=== PATIENT | male | born 1950 | race Caucasian/White ===

== ENCOUNTER → 2020-10-11 10:39 | Outpatient (BNVA) | payer MEDICARE, SELFPAY | PROVIDERS: PCP Internal Medicine; Referring Provider Internal Medicine; Visit Provider Physician Assistant | DX: K52.9 Noninfective gastroenteritis and colitis, unspecified (principal); Z79.899 Other long term (current) drug therapy; Z79.84 Long term (current) use of oral hypoglycemic drugs | CPT/HCPCS: Q3014 ==

== ENCOUNTER 2020-10-23 08:40 | Outpatient (REF) | payer MEDICARE, SELFPAY ==
[2020-10-23 09:43] LABS: MANUAL DIFF FLAG NO
[2020-10-23 09:55] LABS: Basophils Absolute Auto 0.1 X10*3/uL (0.0-0.2); Basophils Percent Auto 0.7 % (0-2); Eosinophils Absolute Auto 0.2 X10*3/uL (0.0-0.4); Eosinophils Percent Auto 2.7 % (0-4); Hematocrit 42.2 % (42-52); Hemoglobin 14.1 g/dl (14.0-18.0); Imm Gran Abs Auto 0.03 X10*3/uL (0.00-0.03); Imm Gran Pct Auto 0.4 % (0.0-0.4); Lymphocytes Absolute Auto 1.5 X10*3/uL (1.2-4.9); Lymphocytes Percent Auto 20.5 % (20-40); Mean Corpuscular HGB Conc 33.4 g/dl (31.0-36.0); Mean Corpuscular Hemoglobin 30.3 pg (27.0-33.0); Mean Corpuscular Volume 90.8 fL (80-98); Mean Platelet Volume 11.5 fL (9.4-12.4); Monocytes Absolute Auto 0.6 X10*3/uL (0.1-1.2); Monocytes Percent Auto 7.7 % (2-11); Platelet Count 197 X10*3/uL (160-400); Red Blood Count 4.65 X10*6/uL (4.60-5.80); Red Cell Distribution Width 14.6 % (11.0-16.0); White Blood Count 7.4 X10*3/uL (4.8-10.8)
[2020-10-23 10:23] LABS: Alanine Aminotransferase 16 U/L (0-40); Albumin Level 3.8 g/dL (3.5-5.0); Alkaline Phosphatase 47 U/L (39-117); Anion Gap 16 (12-20); Aspartate Amino Transferase 19 U/L (5-37); Bilirubin Total 0.9 mg/dL (0.0-1.0); Blood Urea Nitrogen 12 mg/dL (9-16); Calcium 8.9 mg/dL (8.4-10.2); Carbon Dioxide 22 mmol/L (22-29); Chloride 104 mmol/L (96-108); Estimated Glomerular Filt Rate > 60; Glucose Random 169 mg/dL (60-115); Potassium 3.6 mmol/l (3.3-5.1); Sodium 138 mmol/L (135-145); Total Protein 6.6 g/dL (6.5-8.0)
[2020-10-23 10:31] LABS: Estimated Average Glucose 189 mg/dL; Hemoglobin A1c % 8.2 %
[2020-10-23 10:45] LABS: Thyroid Stimulating Hormone 2.07 uIU/mL (0.32-4.0)
[2020-10-23 11:32] LABS: Erythrocyte Sedimentation Rate 15 MM/HR (0-15)
[2020-10-23 13:35] LABS: Leukocytes Stool Qualitative NEGATIVE (NEGATIVE)
[2020-10-25 15:02] LABS: Transglutaminase IgA 1 U/mL
[2020-10-26 13:12] LABS: Endomysial IgA Antibody Negative (Negative)
== END 2020-10-23 08:41 | disposition home or self-care (01) ==
LOC: HO.LAB 08:40
PROVIDERS: PCP Internal Medicine; Visit Provider Physician Assistant
DX: K52.9 Noninfective gastroenteritis and colitis, unspecified (principal); R10.11 Right upper quadrant pain; K59.09 Other constipation
CPT/HCPCS: 36415; 80053; 83036; 83516; 84443; 85025; 85652; 86255; 86256; 87045; 87046; 87329; 89055

== ENCOUNTER → 2020-11-22 09:51 | Outpatient (BNVA) | payer MEDICARE, SELFPAY | PROVIDERS: PCP Internal Medicine; Visit Provider Physician Assistant | DX: K58.9 Irritable bowel syndrome, unspecified (principal) | CPT/HCPCS: Q3014 ==

== ENCOUNTER 2021-01-16 09:05 | Outpatient (REF) | payer MEDICARE, SELFPAY ==
[2021-01-16 11:13] LABS: MANUAL DIFF FLAG NO
[2021-01-16 11:39] LABS: Basophils Absolute Auto 0.1 X10*3/uL (0.0-0.2); Basophils Percent Auto 0.8 % (0-2); Eosinophils Absolute Auto 0.2 X10*3/uL (0.0-0.4); Eosinophils Percent Auto 2.6 % (0-4); Hematocrit 44.6 % (42-52); Hemoglobin 14.6 g/dl (14.0-18.0); Imm Gran Abs Auto 0.03 X10*3/uL (0.00-0.03); Imm Gran Pct Auto 0.4 % (0.0-0.4); Lymphocytes Absolute Auto 1.6 X10*3/uL (1.2-4.9); Lymphocytes Percent Auto 19.4 % (20-40); Mean Corpuscular HGB Conc 32.7 g/dl (31.0-36.0); Mean Corpuscular Hemoglobin 29.1 pg (27.0-33.0); Mean Platelet Volume 11.1 fL (9.4-12.4); Monocytes Absolute Auto 0.6 X10*3/uL (0.1-1.2); Monocytes Percent Auto 7.6 % (2-11); Neutrophils Absolute Auto 5.9 X10*3/uL (2.0-8.3); Neutrophils Percent Auto 69.2 % (45-73); Platelet Count 197 X10*3/uL (160-400); Red Blood Count 5.01 X10*6/uL (4.60-5.80); Red Cell Distribution Width 14.9 % (11.0-16.0); White Blood Count 8.5 X10*3/uL (4.8-10.8)
[2021-01-16 11:47] LABS: Estimated Average Glucose 189 mg/dL; Hemoglobin A1c % 8.2 %
[2021-01-16 11:55] LABS: Alanine Aminotransferase 12 U/L (0-40); Albumin Level 4.1 g/dL (3.5-5.0); Alkaline Phosphatase 52 U/L (39-117); Anion Gap 14 (12-20); Aspartate Amino Transferase 16 U/L (5-37); Blood Urea Nitrogen 11 mg/dL (9-16); Calcium 8.8 mg/dL (8.4-10.2); Carbon Dioxide 26 mmol/L (22-29); Chloride 102 mmol/L (96-108); Cholesterol 152 mg/dL; Estimated Glomerular Filt Rate > 60; Glucose Fasting 124 mg/dL (60-99); HDL Cholesterol 38 mg/dL; LDL Cholesterol Calculated 93 mg/dl; Potassium 3.6 mmol/L (3.3-5.1); Sodium 138 mmol/L (135-145); Total Protein 6.9 g/dL (6.5-8.0); Triglycerides 106 mg/dL
[2021-01-16 12:12] LABS: Prostate Specific Antigen Scr 0.55 ng/mL (<0.05-4.0)
[2021-01-16 12:18] LABS: Vitamin D 25-OH Total 33.3 ng/mL (>30)
[2021-01-16 12:34] LABS: Folate 5.5 ng/mL (> or = 4.0); Vitamin B12 542 pg/mL (200-900)
[2021-01-16 12:36] LABS: Glucose Urine UA NEG (NEG); Leukocyte Esterase Urine NEG (NEG); Nitrite Urine NEG (NEG); Specific Gravity - Urine >= 1.030 (1.005-1.025); Urine Blood NEG (NEG); Urine Ketones NEG (NEG); Urine Protein TRACE MG/DL (NEG-TRACE)
[2021-01-16 12:40] LABS: Appearance Urine CLEAR; Color Urine YELLOW
[2021-01-16 13:04] LABS: Creatinine Urine 160.66 mg/dL; Microalbum/Creatinine Ratio Ur 57.8 ug/mg cr
== END 2021-01-16 09:06 | disposition home or self-care (01) ==
LOC: HO.HMGCLDS 09:05
PROVIDERS: Nurse Practitioner Family; PCP Internal Medicine; Visit Provider Internal Medicine
DX: E11.9 Type 2 diabetes mellitus without complications (principal); I10 Essential (primary) hypertension; E53.8 Deficiency of other specified B group vitamins; G62.9 Polyneuropathy, unspecified; E78.00 Pure hypercholesterolemia, unspecified; E66.9 Obesity, unspecified; E55.9 Vitamin D deficiency, unspecified; F17.200 Nicotine dependence, unspecified, uncomplicated; Z12.5 Encounter for screening for malignant neoplasm of prostate
CPT/HCPCS: 36415; 80053; 80061; 81003; 82043; 82306; 82607; 82746; 83036; 84153; 84443; 85025

== ENCOUNTER → 2021-04-05 13:52 | Outpatient (BNVA) | payer MEDICARE, SELFPAY | PROVIDERS: PCP Internal Medicine; Visit Provider Nurse Practitioner Gerontology | DX: E11.42 Type 2 diabetes mellitus with diabetic polyneuropathy (principal); I10 Essential (primary) hypertension; G62.9 Polyneuropathy, unspecified; E78.00 Pure hypercholesterolemia, unspecified; E66.09 Other obesity due to excess calories; Z79.4 Long term (current) use of insulin | CPT/HCPCS: 82947; 99212 ==

== ENCOUNTER 2021-04-20 10:44 | Outpatient (REF) | payer MEDICARE, SELFPAY ==
[2021-04-20 11:30] LABS: MANUAL DIFF FLAG NO
[2021-04-20 11:40] LABS: Basophils Percent Auto 0.6 % (0-2); Eosinophils Absolute Auto 0.2 X10*3/uL (0.0-0.4); Eosinophils Percent Auto 2.7 % (0-4); Hematocrit 42.2 % (42-52); Imm Gran Abs Auto 0.02 X10*3/uL (0.00-0.03); Imm Gran Pct Auto 0.3 % (0.0-0.4); Lymphocytes Absolute Auto 1.3 X10*3/uL (1.2-4.9); Lymphocytes Percent Auto 19.6 % (20-40); Mean Corpuscular HGB Conc 33.2 g/dl (31.0-36.0); Mean Corpuscular Hemoglobin 29.3 pg (27.0-33.0); Mean Corpuscular Volume 88.3 fL (80-98); Mean Platelet Volume 10.8 fL (9.4-12.4); Monocytes Absolute Auto 0.5 X10*3/uL (0.1-1.2); Monocytes Percent Auto 7.2 % (2-11); Neutrophils Absolute Auto 4.6 X10*3/uL (2.0-8.3); Neutrophils Percent Auto 69.6 % (45-73); Platelet Count 163 X10*3/uL (160-400); Red Blood Count 4.78 X10*6/uL (4.60-5.80); Red Cell Distribution Width 15.3 % (11.0-16.0); White Blood Count 6.7 X10*3/uL (4.8-10.8)
[2021-04-20 11:48] LABS: Glucose Urine UA NEG (NEG); Leukocyte Esterase Urine NEG (NEG); Nitrite Urine NEG (NEG); Specific Gravity - Urine >= 1.030 (1.005-1.025); Urine Blood NEG (NEG); Urine Ketones NEG (NEG); Urine Protein 1+ MG/DL (NEG-TRACE)
[2021-04-20 11:50] LABS: Estimated Average Glucose 206 mg/dL; Hemoglobin A1c % 8.8 %
[2021-04-20 11:56] LABS: Alanine Aminotransferase 11 U/L (0-40); Albumin Level 4.1 g/dL (3.5-5.0); Alkaline Phosphatase 47 U/L (39-117); Anion Gap 13 (12-20); Aspartate Amino Transferase 19 U/L (5-37); Bilirubin Total 1.1 mg/dL (0.0-1.0); Blood Urea Nitrogen 16 mg/dL (9-16); Calcium 9.5 mg/dL (8.4-10.2); Carbon Dioxide 22 mmol/L (22-29); Chloride 105 mmol/L (96-108); Cholesterol 159 mg/dL; Estimated Glomerular Filt Rate > 60; Glucose Fasting 104 mg/dL (60-99); HDL Cholesterol 39 mg/dL; LDL Cholesterol Calculated 99 mg/dl; Potassium 3.8 mmol/L (3.3-5.1); Sodium 136 mmol/L (135-145); Total Protein 6.8 g/dL (6.5-8.0); Triglycerides 107 mg/dL
[2021-04-20 11:58] LABS: Appearance Urine CLEAR; Color Urine YELLOW
[2021-04-20 12:07] LABS: Creatinine Urine 193.85 mg/dL; Microalbum/Creatinine Ratio Ur 73.7 ug/mg cr
[2021-04-20 12:21] LABS: TSH reflex Free T4 1.03 uIU/mL (0.32-4.0); Vitamin D 25-OH Total 31.8 ng/mL (>30)
[2021-04-20 12:42] LABS: Calcium Oxalate Crystals Urine 1+ /LPF; Mucus Urine 1+ /LPF; RBC Urine 0 /HPF (0); WBC Urine 0 /HPF (0-4)
[2021-04-20 13:02] LABS: Folate 7.5 ng/mL (> or = 4.0); Vitamin B12 503 pg/mL (200-900)
== END 2021-04-20 10:45 | disposition home or self-care (01) ==
LOC: HO.LAB 10:44
PROVIDERS: PCP Internal Medicine; Visit Provider Internal Medicine
DX: E78.00 Pure hypercholesterolemia, unspecified (principal); E11.42 Type 2 diabetes mellitus with diabetic polyneuropathy; I10 Essential (primary) hypertension; E55.9 Vitamin D deficiency, unspecified; E53.8 Deficiency of other specified B group vitamins; G62.9 Polyneuropathy, unspecified; F17.200 Nicotine dependence, unspecified, uncomplicated; K52.9 Noninfective gastroenteritis and colitis, unspecified; R51.9 Headache, unspecified; E66.9 Obesity, unspecified; Z79.4 Long term (current) use of insulin
CPT/HCPCS: 36415; 80053; 80061; 81001; 82043; 82306; 82607; 82746; 83036; 84443; 85025

== ENCOUNTER → 2021-05-22 12:44 | Outpatient (BNVA) | payer MEDICARE, SELFPAY | PROVIDERS: PCP Internal Medicine; Visit Provider Nurse Practitioner Gerontology | DX: E11.42 Type 2 diabetes mellitus with diabetic polyneuropathy (principal); E78.00 Pure hypercholesterolemia, unspecified; E66.09 Other obesity due to excess calories; I10 Essential (primary) hypertension; G62.9 Polyneuropathy, unspecified; Z79.4 Long term (current) use of insulin | CPT/HCPCS: 82947; 99212 ==

== ENCOUNTER 2021-08-03 15:02 | Outpatient (REF) | payer MEDICARE, SELFPAY ==
[2021-08-03 16:00] LABS: MANUAL DIFF FLAG NO
[2021-08-03 16:01] LABS: Appearance Urine CLEAR; Color Urine DK YELLOW; Glucose Urine UA 250 MG/DL (NEG); Leukocyte Esterase Urine NEG (NEG); Nitrite Urine NEG (NEG); Specific Gravity - Urine >= 1.030 (1.005-1.025); UACC Culture Trigger NO; Urine Blood NEG (NEG); Urine Ketones NEG (NEG); Urine Protein 1+ MG/DL (NEG-TRACE)
[2021-08-03 16:07] LABS: Basophils Percent Auto 0.6 % (0-2); Eosinophils Absolute Auto 0.1 X10*3/uL (0.0-0.4); Eosinophils Percent Auto 2.1 % (0-4); Hematocrit 41.2 % (42-52); Hemoglobin 14.1 g/dl (14.0-18.0); Imm Gran Abs Auto 0.03 X10*3/uL (0.00-0.03); Imm Gran Pct Auto 0.5 % (0.0-0.4); Lymphocytes Absolute Auto 1.1 X10*3/uL (1.2-4.9); Lymphocytes Percent Auto 17.2 % (20-40); Mean Corpuscular HGB Conc 34.2 g/dl (31.0-36.0); Mean Corpuscular Hemoglobin 29.9 pg (27.0-33.0); Mean Corpuscular Volume 87.3 fL (80-98); Mean Platelet Volume 11.1 fL (9.4-12.4); Monocytes Absolute Auto 0.4 X10*3/uL (0.1-1.2); Monocytes Percent Auto 6.2 % (2-11); Neutrophils Absolute Auto 4.9 X10*3/uL (2.0-8.3); Neutrophils Percent Auto 73.4 % (45-73); Platelet Count 145 X10*3/uL (160-400); Red Blood Count 4.72 X10*6/uL (4.60-5.80); Red Cell Distribution Width 14.8 % (11.0-16.0); White Blood Count 6.6 X10*3/uL (4.8-10.8)
[2021-08-03 16:11] LABS: Bacteria Urine TRACE /LPF; Mucus Urine 3+ /LPF; RBC Urine 0-2 /HPF (0); Squamous Epithelial Cell Urine TRACE /LPF
[2021-08-03 16:44] LABS: Creatinine Urine 205.98 mg/dL; Microalbum/Creatinine Ratio Ur 97.5 ug/mg cr
[2021-08-03 16:49] LABS: Alanine Aminotransferase 14 U/L (0-40); Albumin Level 3.9 g/dL (3.5-5.0); Alkaline Phosphatase 53 U/L (39-117); Anion Gap 11 (12-20); Aspartate Amino Transferase 15 U/L (5-37); Bilirubin Total 1.4 mg/dL (0.0-1.0); Blood Urea Nitrogen 12 mg/dL (9-16); Calcium 9.3 mg/dL (8.4-10.2); Carbon Dioxide 25 mmol/L (22-29); Chloride 102 mmol/L (96-108); Cholesterol 157 mg/dL; Estimated Glomerular Filt Rate > 60; Glucose Fasting 192 mg/dL (60-99); HDL Cholesterol 42 mg/dL; LDL Cholesterol Calculated 93 mg/dl; Sodium 134 mmol/L (135-145); TSH reflex Free T4 1.12 uIU/mL (0.32-4.0); Total Protein 6.5 g/dL (6.5-8.0); Triglycerides 112 mg/dL; Vitamin D 25-OH Total 28.5 ng/mL (>30)
[2021-08-03 17:09] LABS: Folate 4.5 ng/mL (> or = 4.0); Vitamin B12 550 pg/mL (200-900)
[2021-08-04 07:46] LABS: Estimated Average Glucose 223 mg/dL; Hemoglobin A1c % 9.4 %
== END 2021-08-03 15:03 | disposition home or self-care (01) ==
LOC: HO.LAB 15:02
PROVIDERS: PCP Internal Medicine; Visit Provider Internal Medicine
DX: E11.9 Type 2 diabetes mellitus without complications (principal); E78.00 Pure hypercholesterolemia, unspecified; I10 Essential (primary) hypertension; E55.9 Vitamin D deficiency, unspecified; E53.8 Deficiency of other specified B group vitamins
CPT/HCPCS: 36415; 80053; 80061; 81001; 81003; 82043; 82306; 82607; 82746; 83036; 84443; 85025

== ENCOUNTER 2021-11-03 14:16 | Outpatient (REF) | payer MEDICARE, SELFPAY ==
[2021-11-03 15:17] LABS: MANUAL DIFF FLAG NO
[2021-11-03 15:39] LABS: Basophils Percent Auto 0.6 % (0-2); Eosinophils Absolute Auto 0.1 X10*3/uL (0.0-0.4); Eosinophils Percent Auto 2.1 % (0-4); Hematocrit 41.4 % (42.0-52.0); Imm Gran Abs Auto 0.02 X10*3/uL (0.00-0.03); Imm Gran Pct Auto 0.3 % (0.0-0.4); Lymphocytes Absolute Auto 1.5 X10*3/uL (1.2-4.9); Lymphocytes Percent Auto 22.9 % (20-40); Mean Corpuscular HGB Conc 33.8 g/dl (31.0-36.0); Mean Corpuscular Hemoglobin 30.6 pg (27.0-33.0); Mean Corpuscular Volume 90.6 fL (80.0-98.0); Mean Platelet Volume 11.1 fL (9.4-12.4); Monocytes Absolute Auto 0.5 X10*3/uL (0.1-1.2); Monocytes Percent Auto 7.8 % (2-11); Neutrophils Absolute Auto 4.3 x10*3/uL (2.0-8.3); Neutrophils Percent Auto 66.3 % (45-73); Platelet Count 143 X10*3/uL (160-400); Red Blood Count 4.57 X10*6/uL (4.60-5.80); Red Cell Distribution Width 14.9 % (11.0-16.0); White Blood Count 6.5 X10*3/uL (4.8-10.8)
[2021-11-03 15:40] LABS: Appearance Urine CLEAR; Color Urine DK YELLOW; Glucose Urine UA 500 MG/DL (NEG); Leukocyte Esterase Urine NEG (NEG); Nitrite Urine NEG (NEG); Specific Gravity - Urine >= 1.030 (1.005-1.025); UACC Culture Trigger NO; Urine Blood NEG (NEG); Urine Ketones NEG (NEG); Urine Protein 1+ MG/DL (NEG-TRACE)
[2021-11-03 15:52] LABS: WBC Urine 0-2 /HPF (0-4)
[2021-11-03 15:53] LABS: Calcium Oxalate Crystals Urine 2+ /LPF; Mucus Urine 2+ /LPF; RBC Urine 0 /HPF (0); Squamous Epithelial Cell Urine TRACE /LPF
[2021-11-03 15:57] LABS: Creatinine Urine 273.22 mg/dL; Microalbum/Creatinine Ratio Ur 67.7 ug/mg cr
[2021-11-03 15:57] LABS: Alanine Aminotransferase 8 U/L (0-40); Albumin Level 3.9 g/dL (3.5-5.0); Alkaline Phosphatase 55 U/L (39-117); Anion Gap 13 (12-20); Aspartate Amino Transferase 11 U/L (5-37); Bilirubin Total 1.1 mg/dL (0.0-1.0); Blood Urea Nitrogen 14 mg/dL (9-16); Calcium 9.1 mg/dL (8.4-10.2); Carbon Dioxide 23 mmol/L (22-29); Chloride 106 mmol/L (96-108); Cholesterol 148 mg/dL; Estimated Glomerular Filt Rate > 60; Glucose Fasting 163 mg/dL (60-99); HDL Cholesterol 41 mg/dL; LDL Cholesterol Calculated 87 mg/dl; Potassium 3.8 mmol/L (3.3-5.1); Sodium 138 mmol/L (135-145); Total Protein 6.7 g/dL (6.5-8.0); Triglycerides 104 mg/dL
[2021-11-03 16:00] LABS: Estimated Average Glucose 206 mg/dL; Hemoglobin A1c % 8.8 %
[2021-11-03 16:18] LABS: TSH reflex Free T4 1.06 uIU/mL (0.32-4.0); Vitamin D 25-OH Total 29.5 ng/mL (>30)
[2021-11-05 03:46] LABS: Folate 4.1 ng/mL (> or = 4.0); Vitamin B12 527 pg/mL (200-900)
== END 2021-11-03 14:17 | disposition home or self-care (01) ==
LOC: HO.HMGCLDS 14:16
PROVIDERS: Visit Provider Internal Medicine
DX: E78.00 Pure hypercholesterolemia, unspecified (principal); I10 Essential (primary) hypertension; E55.9 Vitamin D deficiency, unspecified; E53.8 Deficiency of other specified B group vitamins; E11.9 Type 2 diabetes mellitus without complications
CPT/HCPCS: 36415; 80053; 80061; 81001; 82043; 82306; 82607; 82746; 83036; 84443; 85025

== ENCOUNTER 2021-11-23 13:32 | Outpatient (REF) | payer MEDICARE, SELFPAY ==
--- NOTE | ~2021-11-23 | US_ITS ---
EXAMINATION: US ABDOMEN COMPLETE CLINICAL INFORMATION: Unspecified abdominal pain. COMPARISON: None TECHNIQUE: Real-time imaging of the abdominal viscera. FINDINGS: PANCREAS: The visualized portion of the pancreas head and body are normal, portion of the pancreatic body and tail, not visualized are obscured by bowel gas. ABDOMINAL AORTA: The proximal, mid, and distal segments are normal in caliber. INFERIOR VENA CAVA: Visualized portions are normal. LIVER: The liver is normal in size. The liver contour is normal. Diffusely echogenic liver suggesting hepatic steatosis versus cirrhosis. No focal hepatic lesion. There is no intrahepatic biliary duct dilatation seen. GALLBLADDER: Surgically absent. COMMON BILE DUCT: Normal in caliber measuring 0.7 cm in diameter. RIGHT KIDNEY: Normal. No hydronephrosis. No renal calculi or focal parenchymal lesions. The kidney measures 12.4 cm in maximum dimension. LEFT KIDNEY: Normal. No hydronephrosis. No renal calculi or focal parenchymal lesions. The kidney measures 12.9 cm in maximum dimension. SPLEEN: Enlarged The spleen measures 13.5 cm in maximum dimension. FREE FLUID: None. US/US abdomen complete IMPRESSION: *Heterogeneously echogenic liver suggesting liver parenchymal disease probably hepatic steatosis and/or cirrhosis. *Spleen mildly enlarged 13.5 cm. *Gallbladder has been removed. No ultrasound explanation for patient's pain symptoms.
== END 2021-11-23 13:33 | disposition home or self-care (01) ==
LOC: HO.HMGCX 13:32
PROVIDERS: PCP Internal Medicine; Visit Provider Internal Medicine
DX: R10.9 Unspecified abdominal pain (principal)
CPT/HCPCS: 76700

== ENCOUNTER 2021-12-28 22:37 | Emergency (ER) | payer MEDICARE, SELFPAY ==
--- NOTE | ~2021-12-28 | XR_ITS ---
EXAMINATION: XR CHEST CLINICAL INFORMATION: Weakness after fall 2 days ago COMPARISON: 04/09/2010 TECHNIQUE: Frontal view of the chest was obtained. FINDINGS: Lung volumes are symmetric. Diffusely coarsened appearance of the interstitium is noted, similar to prior. No focal consolidation is seen. No evidence of pneumothorax or pleural effusion. The cardiomediastinal contour is unremarkable. Degenerative changes are noted in the spine. Lower cervical spine fusion hardware is noted. No displaced fracture is seen. XR/XR chest 1V IMPRESSION: Coarsened appearance of the interstitium appears similar to prior and may reflect chronic airways disease. No new acute findings identified.
--- NOTE | ~2021-12-28 | CT_ITS ---
EXAMINATION: CT HEAD WITHOUT CONTRAST CLINICAL INFORMATION: Headache, fall COMPARISON: None TECHNIQUE: Contiguous axial imaging was performed from the skull base to vertex without intravenous administration of contrast. This CT examination was performed using dose optimization techniques as appropriate, variously including the following: *Automated exposure control *Adjustment of mA and/or kV according to patient size (this includes techniques or standardized protocols for targeted exams where dose is matched to indication/reason for exam; i.e. extremities or head) *Use of iterative reconstruction technique DLP: 750 mGy-cm FINDINGS: There is no evidence of acute intracranial hemorrhage or territorial infarction. No abnormal mass effect or midline shift is seen. Blanc to white matter differentiation is well preserved. No extra-axial fluid collections are identified. The ventricles are normal in size. There is moderate periventricular white matter hypoattenuation consistent with chronic small vessel ischemic disease. The osseous structures and soft tissues are normal. The mastoid air cells and visualized portions of the paranasal sinuses are well aerated. CT/CT head/brain wo con IMPRESSION: No acute intracranial pathology.
--- NOTE | ~2021-12-28 | CT_ITS ---
EXAMINATION: CT ABDOMEN AND PELVIS WITHOUT CONTRAST CLINICAL INFORMATION: Abdominal pain, constipation COMPARISON: None TECHNIQUE: Multidetector volumetric imaging was performed from the superior aspect of the liver through the pubic symphysis. Sagittal and coronal reformatted images were obtained on the technologist's workstation. This CT examination was performed using dose optimization techniques as appropriate, variously including the following: *Automated exposure control *Adjustment of mA and/or kV according to patient size (this includes techniques or standardized protocols for targeted exams where dose is matched to indication/reason for exam; i.e. extremities or head) *Use of iterative reconstruction technique DLP: 1027 mGy-cm FINDINGS: LUNG BASES: There is mild patchy groundglass type opacity in the inferior right middle lobe. LIVER, GALLBLADDER, AND BILIARY TREE: The liver is normal in size, shape, and attenuation. No focal hepatic lesion or biliary ductal dilatation is present. Patient is status post cholecystectomy. PANCREAS: Unremarkable. SPLEEN: Unremarkable. ADRENAL GLANDS: Unremarkable. KIDNEYS AND URETERS: No hydronephrosis or obstructing calculus bilaterally. There is a 2 mm calculus in the posterior mid left kidney. Nonspecific bilateral perinephric stranding. BLADDER: Minimally distended with diffuse mural prominence and surrounding stranding. GASTROINTESTINAL TRACT: Assessment for wall thickening in some segments of the colon is limited due to luminal collapse, though no significant pericolonic stranding is seen to strongly suggest a colitis. Relatively mild amount of stool is present. No evidence of bowel obstruction. The appendix is unremarkable. No free fluid or free air is seen. ABDOMINAL WALL: Bilateral fat-containing inguinal hernias are noted. Small fat-containing umbilical hernia. LYMPH NODES: Normal. VASCULAR: There is atherosclerotic calcification along the aorta and iliac arteries. PELVIC VISCERA: Unremarkable. OSSEOUS STRUCTURES: Degenerative changes are noted in the spine. Interspinous process device is present at L3-L4. There is grade 1 anterolisthesis of L3 on L4 with degenerative disc disease and severe disc space narrowing. Vacuum disc phenomenon is also noted at L4-L5 and to a lesser degree at T11-T12. CT/CT abdomen pelvis wo con IMPRESSION: 1. Mild patchy groundglass pulmonary opacity in the inferior right middle lobe, suggesting mild infectious/inflammatory change. 2. Mural prominence of the urinary bladder with surrounding stranding. Correlation with urinalysis is advised, as this appearance can be seen with cystitis. 3. Tiny left renal calculus without hydronephrosis. 4. No acute bowel abnormality. Mild volume of stool. Fleischner guidelines were followed.
[2021-12-28 23:30] VITALS: BP 146/66; PULSE 100; RESP 20; TEMP 36.8; O2SAT 96; BMI 32.3
[2021-12-29] VITALS (9 sets, daily range): BP systolic 110–155; BP diastolic 48–70; PULSE 91–109; RESP 16–19; TEMP 36.6–37.4; O2SAT 94–100
--- NOTE | 2021-12-29 02:57 | ECG_ITS ---
Test Reason : FALL Blood Pressure : / mmHG Vent. Rate : 095 BPM Atrial Rate : 095 BPM P-R Int : 138 ms QRS Dur : 090 ms QT Int : 372 ms P-R-T Axes : 054 044 057 degrees QTc Int : 467 ms Sinus rhythm with frequent Premature ventricular complexes Nonspecific ST abnormality Abnormal ECG When compared with ECG of 17-MAY-2011 12:31, Premature ventricular complexes are now Present Referred By: Generic ED Physician Electronically Signed By:Clovis Hackett
--- NOTE | 2021-12-29 03:47 | ED.FALL ---
HPI - Fall General Chief Complaint: Fall Stated Complaint: fall x3 yesterday, blood in urine Time Seen by Provider: 12/29/21 02:00 Source: patient Mode of arrival: ambulatory Limitations: no limitations History of Present Illness complaint: fall Onset (ago): day(s) ( states he fells 3 times and one time hit his head) Fall from: standing Fall witnessed: no Place fall occurred: home Loss of consciousness: none Prolonged down time: no Symptoms prior to fall: none Context: other (unsure thinks his knees gave out then feels his abdomen was too big and it caused him to fall) Location of injury: head Severity: mild Quality: dull Associated symptoms (after fall): other (has had pain with urination as well, he also states he needs more help at home but cannot get it ) Related Data Home Medications Medication Instructions Recorded Confirmed cholecalciferol (vitamin D3) 25 25 mcg PO DAILY 11/22/20 11/06/21 mcg (1,000 unit) capsule mirtazapine 30 mg disintegrating 30 mg PO BEDTIME 11/22/20 11/06/21 tablet insulin aspar prt-insulin aspart 30 unit SUBCUT BID ml 04/05/21 11/06/21 100 unit/mL (70-30) subcutaneous soln (Novolog Mix 70-30 U-100 Insuln) melatonin 1 mg tablet 1 mg PO BEDTIME PRN 11/06/21 11/06/21 sertraline 100 mg tablet 150 mg PO DAILY tab 11/06/21 11/06/21 topiramate 25 mg tablet 25 mg PO BID 11/06/21 11/06/21 Previous Rx's Medication Instructions Recorded methylcellulose (laxative) 500 mg 500 mg PO BID #60 tab 10/11/20 tablet (Citrucel) meclizine 25 mg tablet 25 mg PO TID PRN 10 Days #30 tab 04/24/21 doxycycline monohydrate 100 mg 100 mg PO BID 10 Days #20 cap 08/07/21 capsule blood sugar diagnostic (FreeStyle 1 strip MISCELLANEOUS TID #300 cap 09/06/21 Lite Strips) glimepiride 4 mg tablet 4 mg PO QAM #30 tab 11/02/21 lancets 28 gauge (FreeStyle 1 gauge TOPICAL TID #300 cap 11/27/21 Lancets) gabapentin 300 mg capsule 300 mg PO TID #90 cap 11/30/21 lovastatin 40 mg tablet 40 mg PO DAILY #30 tab 11/30/21 metformin 1,000 mg tablet 1,000 mg PO BID #60 tab 11/30/21 metoprolol tartrate 25 mg tablet 25 mg PO BID #60 tab 11/30/21 Allergies Allergy/AdvReac Type Severity Reaction Status Date / Time No Known Allergies Allergy Verified 11/06/21 15:20 [No Known Allergies*] Review of Systems Review of Systems: Constitutional : No Weight loss, No Fever, No Chills, No Fatigue, No Malaise ENT/Mouth : No sore throat, No Rhinorrhea Eyes: No Eye Pain, No Swelling, No Redness Cardiovascular : No Chest Pain, No SOB, No Dyspnea on Exertion, No Orthopnea, No Edema, No Palpitations Respiratory : No Cough, No Sputum, No Wheezing Gastrointestinal : No Nausea, No Vomiting, No Diarrhea, No Constipation, pos abdominal Pain, No Hematochezia, No Melena Genitourinary : pos Dysuria, pos Urinary Frequency, No Hematuria, Musculoskeletal : No joint pain, No Myalgias, No Joint Swelling Skin : No Skin Lesions, No rash Neuro : No Weakness, No Numbness, No Dizziness, No Headache, pos falls Psych : No Anxiety/Panic, No Depression Heme/Lymph: No Bruising, No Bleeding,No Lymphadenopathy Endocrine : No Polyuria, No Polydipsia All other systems reviewed and are negative [facility] Past Medical History Attestation statement: The following information was validated with the patient. Medical History Benign essential hypertension Benign paroxysmal vertigo Chronic diarrhea Degenerative disc disease, cervical Depression Diabetes Diabetes mellitus HTN (hypertension) Insomnia Irritable bowel Keratotic lesion Lumbar degenerative disc disease Neuropathy Nonintractable headache Obesity (BMI 30-39.9) Obesity due to excess calories Postprandial diarrhea Posttraumatic stress disorder Pure hypercholesterolemia Smoker Type 2 diabetes mellitus with microalbuminuria Vitamin B12 deficiency Vitamin D deficiency Surgical History History of cervical spinal surgery History of laparoscopic cholecystectomy History of lumbar surgery History of surgery Family History Family History Father Diabetes CVD (cardiovascular disease) Mother Stroke Social History Social History Household Members: Children Household Members Other:: lives with his son Housing: Apartment Alcohol intake: former Patient Tobacco Use Status: Current everyday Tobacco user Tobacco use type: Cigar Cigarettes Per Day: 10 Second Hand Smoke Exposure: Yes Advance Directives: No Advance Directives Information Provided: Yes service: Yes Current occupational status: retired Physical Exam Vital Signs: Vital Signs: Last Vital Signs Temp 98.2 F 12/28/21 23:30 Pulse 99 12/29/21 04:30 Resp 18 12/29/21 04:30 BP 155/64 H 12/29/21 04:30 Pulse Ox 98 12/29/21 04:30 BMI result Body Mass Index 32.3 Appearance: Alert. Oriented X3. No acute distress. Eyes: Pupils equal, round and reactive to light. ENT: Pharynx normal. Atraumatic Neck: Normal inspection. Neck supple. CVS: Normal heart rate and rhythm. Pulses normal. Respiratory: No respiratory distress. Breath sounds normal. Abdomen: Soft and non-tender. Skin: Skin warm and dry. Normal skin color. Normal skin turgor. Extremities: No lower extremity edema. No calf ttp Shiny red legs, prior healing scrapes noted on anterior legs Neuro: Oriented X 3. No motor deficit. No sensory deficit. Course Course Course Narrative: + UA at this time infection suspected 510am cultures, lactic acid and ceftriaxone ordered. afebrile, no vomiting here, steady gait here - + UTI but no WBC count no fevers no abdominal pain at this time lytes being repleted given IV ceftriaxone - would refer to PT/CM patient agreeable and wants to go to rehab he is vaccinated for COVID started on ceftin 500mg BID Patient placed in physician observation at 617am. The indication for observation is that the patient needs more time to see PT and CM he reports increased falls at home and notes he needs more help at home, he has fallen in the past. At this time the patient is well developed well nourished, lungs clear, CV RRR, abd nontender, neuro is intact. MDM - Fall MDM Narrative Medical decision making narrative: 71 yo male with hx of DM, HTN, HLD, PTSD, arthritis comes in with 3 falls on he has no CP/SOB/dizziness but does not his stomach hurt and he has some dysuria. At this time he is alert and oriented. Notes he needs more help at home. He denies any trauma from the event but did hit his head on a counter. At this time labs, CT head for trauma, CT abdomen for reported pain/distention, UA, EKG. Dispo per results and findings. May need CM for more help at home. Lab Data Result diagrams: 12/29/21 04:36 12/29/21 04:36 Labs: Lab Results 12/29/21 12/29/21 12/29/21 Range/Units 04:36 04:36 04:36 WBC 9.0 (4.8-10.8) X10*3/uL RBC 4.31 L (4.60-5.80) X10*6/uL Hgb 13.1 L (14.0-18.0) g/dl Hct 38.5 L (42.0-52.0) % MCV 89.3 (80.0-98.0) fL MCH 30.4 (27.0-33.0) pg MCHC 34.0 (31.0-36.0) g/dl RDW 14.6 (11.0-16.0) % Plt Count 97 L D (160-400) X10*3/uL MPV 11.3 (9.4-12.4) fL Immature Gran % (Auto) 0.7 H (0.0-0.4) % Neut % (Auto) 75.0 H (45-73) % Lymph % (Auto) 15.0 L (20-40) % [place] % (Auto) 8.0 (2-11) % Eos % (Auto) 1.1 (0-4) % Baso % (Auto) 0.2 (0-2) % Lymph # (Auto) 1.4 (1.2-4.9) X10*3/uL [place] # (Auto) 0.7 (0.1-1.2) X10*3/uL Eos # (Auto) 0.1 (0.0-0.4) X10*3/uL Baso # (Auto) 0.0 (0.0-0.2) X10*3/uL Abs Immat Gran (auto) 0.06 H (0.00-0.03) X10*3/uL Absolute Neuts (auto) 6.8 (2.0-8.3) x10*3/uL Absolute Nucleated RBC 0.000 (0.0-0.012) X10*3/uL Nucleated RBC % (auto) 0.0 (0.0-0.2) /100WBC Sodium 134 L (135-145) mmol/L Potassium 3.2 L (3.3-5.1) mmol/L Chloride 98 (96-108) mmol/L Carbon Dioxide 26 (22-29) mmol/L Anion Gap 13 (12-20) BUN 15 (9-16) mg/dL Creatinine 0.82 (0.5-1.4) mg/dL Estim Creat Clear Calc 111.1 Estimated GFR > 60 Random Glucose 172 H (60-115) mg/dL Lactic Acid (0.5-2.0) mmol/L Calcium 8.6 (8.4-10.2) mg/dL Magnesium 1.4 L* (1.6-2.6) mg/dL Total Bilirubin 2.9 H (0.0-1.0) mg/dL AST 15 (5-37) U/L ALT 7 (0-40) U/L Alkaline Phosphatase 45 (39-117) U/L Troponin I High Sens 28.0 (<3.5-35.0) ng/L Total Protein 6.3 L (6.5-8.0) g/dL Albumin 3.4 L (3.5-5.0) g/dL Urine Color Urine Appearance Urine pH (5.0-8.0) Ur Specific [place] (1.005-1.025) Urine Protein (NEG-TRACE) MG/DL Urine Glucose (UA) (NEG) MG/DL Urine Ketones (NEG) MG/DL Urine Blood (NEG) Urine Nitrite (NEG) Ur Leukocyte Esterase (NEG) Urine RBC (0) /HPF Urine WBC (0-4) /HPF Ur Squamous Epith Cells /LPF Urine Bacteria /LPF Urine Mucus /LPF COVID-19 (LEATHA) (Negative) COVID-19 Clin Com 12/29/21 12/29/21 12/29/21 Range/Units 04:36 05:53 05:54 WBC (4.8-10.8) X10*3/uL RBC (4.60-5.80) X10*6/uL Hgb (14.0-18.0) g/dl Hct (42.0-52.0) % MCV (80.0-98.0) fL MCH (27.0-33.0) pg MCHC (31.0-36.0) g/dl RDW (11.0-16.0) % Plt Count (160-400) X10*3/uL MPV (9.4-12.4) fL Immature Gran % (Auto) (0.0-0.4) % Neut % (Auto) (45-73) % Lymph % (Auto) (20-40) % [place] % (Auto) (2-11) % Eos % (Auto) (0-4) % Baso % (Auto) (0-2) % Lymph # (Auto) (1.2-4.9) X10*3/uL [place] # (Auto) (0.1-1.2) X10*3/uL Eos # (Auto) (0.0-0.4) X10*3/uL Baso # (Auto) (0.0-0.2) X10*3/uL Abs Immat Gran (auto) (0.00-0.03) X10*3/uL Absolute Neuts (auto) (2.0-8.3) x10*3/uL Absolute Nucleated RBC (0.0-0.012) X10*3/uL Nucleated RBC % (auto) (0.0-0.2) /100WBC Sodium (135-145) mmol/L Potassium (3.3-5.1) mmol/L Chloride (96-108) mmol/L Carbon Dioxide (22-29) mmol/L Anion Gap (12-20) BUN (9-16) mg/dL Creatinine (0.5-1.4) mg/dL Estim Creat Clear Calc Estimated GFR Random Glucose (60-115) mg/dL Lactic Acid 1.2 (0.5-2.0) mmol/L Calcium (8.4-10.2) mg/dL Magnesium (1.6-2.6) mg/dL Total Bilirubin (0.0-1.0) mg/dL AST (5-37) U/L ALT (0-40) U/L Alkaline Phosphatase (39-117) U/L Troponin I High Sens (<3.5-35.0) ng/L Total Protein (6.5-8.0) g/dL Albumin (3.5-5.0) g/dL Urine Color BROWN A Urine Appearance CLOUDY Urine pH 6.0 (5.0-8.0) Ur Specific [place] >= 1.030 H (1.005-1.025) Urine Protein 2+ H (NEG-TRACE) MG/DL Urine Glucose (UA) 100 H (NEG) MG/DL Urine Ketones 40 (NEG) MG/DL Urine Blood 1+ H (NEG) Urine Nitrite POS H (NEG) Ur Leukocyte Esterase 1+ H (NEG) Urine RBC 5-9 H (0) /HPF Urine WBC 10-14 H (0-4) /HPF Ur Squamous Epith Cells TRACE /LPF Urine Bacteria 3+ /LPF Urine Mucus TRACE /LPF COVID-19 (LEATHA) Negative (Negative) COVID-19 Clin Com See Note ECG Data Attestation: I personally reviewed and interpreted this ECG as follows: ECG interpretation date: 12/29/21 ECG interpretation time: 04:59 Interpretation: Rate: 95 Rhythm: NSR with PVCs [place]: normal Normal P waves. Normal MEL. Normal QRS complex. ST T wave : no ANGELA nonspecific qTC: normal prior studies: no acute ischemia The study has been interpreted contemporaneously by me. . Discharge Plan Discharge Clinical Impression: Hypomagnesemia, Acute hypokalemia, Acute UTI Falls Qualifiers: Encounter type: initial encounter Qualified Code(s): W19.XXXA - Unspecified fall, initial encounter Patient Disposition: Still a Patient Prescriptions: No Action Citrucel 500 mg tablet 500 mg PO BID Qty: 60 5RF FreeStyle Lite Strips Strip 1 strip miscellaneous TID Qty: 300 0RF glimepiride 4 mg tablet 4 mg PO QAM Qty: 30 3RF lancets [FreeStyle Lancets] 28 gauge misc 1 gauge topical TID Qty: 300 0RF metformin 1,000 mg tablet 1,000 mg PO BID Qty: 60 3RF lovastatin 40 mg tablet 40 mg PO DAILY Qty: 30 3RF gabapentin 300 mg capsule 300 mg PO TID Qty: 90 3RF metoprolol tartrate 25 mg tablet 25 mg PO BID Qty: 60 3RF melatonin 1 mg tablet 1 mg PO BEDTIME PRN0RF topiramate 25 mg tablet 25 mg PO BID 0RF meclizine 25 mg tablet 25 mg PO TID PRN (Reason: dizziness) 10 Days Qty: 30 1RF doxycycline monohydrate 100 mg capsule 100 mg PO BID 10 Days Qty: 20 0RF insulin asp prt-insulin aspart [Novolog Mix 70-30 U-100 Insuln] 100 unit/mL (70-30) solution 30 unit subcut BID 0RF cholecalciferol (vitamin D3) 25 mcg (1,000 unit) capsule 25 mcg PO DAILY 0RF mirtazapine 30 mg tablet,disintegrating 30 mg PO BEDTIME 0RF sertraline 100 mg tablet 150 mg PO DAILY 0RF
[2021-12-29 04:46] LABS: MANUAL DIFF FLAG NO
[2021-12-29 04:47] LABS: Appearance Urine CLOUDY; Color Urine BROWN; Glucose Urine UA 100 MG/DL (NEG); Leukocyte Esterase Urine 1+ (NEG); Nitrite Urine POS (NEG); Specific Gravity - Urine >= 1.030 (1.005-1.025); UACC Culture Trigger YES; Urine Blood 1+ (NEG); Urine Ketones 40 MG/DL (NEG); Urine Protein 2+ MG/DL (NEG-TRACE)
[2021-12-29 04:49] LABS: Basophils Percent Auto 0.2 % (0-2); Eosinophils Absolute Auto 0.1 X10*3/uL (0.0-0.4); Eosinophils Percent Auto 1.1 % (0-4); Hematocrit 38.5 % (42.0-52.0); Hemoglobin 13.1 g/dl (14.0-18.0); Imm Gran Abs Auto 0.06 X10*3/uL (0.00-0.03); Imm Gran Pct Auto 0.7 % (0.0-0.4); Lymphocytes Absolute Auto 1.4 X10*3/uL (1.2-4.9); Mean Corpuscular Hemoglobin 30.4 pg (27.0-33.0); Mean Corpuscular Volume 89.3 fL (80.0-98.0); Mean Platelet Volume 11.3 fL (9.4-12.4); Monocytes Absolute Auto 0.7 X10*3/uL (0.1-1.2); Neutrophils Absolute Auto 6.8 x10*3/uL (2.0-8.3); Platelet Count 97 X10*3/uL (160-400); Red Blood Count 4.31 X10*6/uL (4.60-5.80); Red Cell Distribution Width 14.6 % (11.0-16.0)
[2021-12-29 04:52] LABS: Squamous Epithelial Cell Urine TRACE /LPF
[2021-12-29 04:53] LABS: Bacteria Urine 3+ /LPF; Mucus Urine TRACE /LPF
[2021-12-29 05:10] LABS: Alanine Aminotransferase 7 U/L (0-40); Albumin Level 3.4 g/dL (3.5-5.0); Alkaline Phosphatase 45 U/L (39-117); Anion Gap 13 (12-20); Aspartate Amino Transferase 15 U/L (5-37); Bilirubin Total 2.9 mg/dL (0.0-1.0); Blood Urea Nitrogen 15 mg/dL (9-16); Calcium 8.6 mg/dL (8.4-10.2); Carbon Dioxide 26 mmol/L (22-29); Chloride 98 mmol/L (96-108); Creatinine Clr Calc Pharmacy 111.1; Estimated Glomerular Filt Rate > 60; Glucose Random 172 mg/dL (60-115); Magnesium 1.4 mg/dL (1.6-2.6); Potassium 3.2 mmol/L (3.3-5.1); Sodium 134 mmol/L (135-145); Total Protein 6.3 g/dL (6.5-8.0)
[2021-12-29] MEDS: Magnesium Sulfate/H2O 2 GM/50 ML PIGGYBACK IV (05:29)
[2021-12-29 06:10] LABS: Lactic Acid 1.2 mmol/L (0.5-2.0)
[2021-12-29] MEDS: Potassium Chloride ER 20 MEQ TAB.ER.PRT PO (06:10)
[2021-12-29 06:16] LABS: COVID-19 Test Negative (Negative); IDNOW Serial# 9DD0AD1C
[2021-12-29] MEDS: cefTRIAXone sodium 1 GM in 0.9 % Sodium Chloride 50 ML IV (07:25)
--- NOTE | 2021-12-29 13:57 | PHA.MEDREC ---
Pharmacy Consult ? Medication Reconciliation Pharmacy has completed the medication reconciliation. Spoke with pt and confirmed his meds, [facility]
[2021-12-29] MEDS: Phenazopyridine HCL 200 MG TABLET PO (18:52)
[2021-12-29 18:58] LABS: Glucose, Whole Blood 453 mg/dL (60-115)
[2021-12-29] MEDS: Insulin Lispro 100 UNIT/ML 3 ML VIAL SUBCUT ×2 (18:58→22:18)
[2021-12-29 20:10] LABS: Glucose, Whole Blood 284 mg/dL (60-115)
[2021-12-29 22:11] LABS: Glucose, Whole Blood 243 mg/dL (60-115)
[2021-12-29] MEDS: Insulin Glargine,Hum.rec.anlog 100 UNIT/ML 10 ML VIAL 33 UNIT SUBCUT (22:17)
[2021-12-29] MEDS: Topiramate 25 MG TABLET PO (22:19)
[2021-12-29] MEDS: metFORMIN HCl 1,000 MG TABLET 1000 MG PO (22:20)
[2021-12-29] MEDS: Mirtazapine 30 MG TABLET PO (22:20)
[2021-12-29] MEDS: Gabapentin 300 MG CAPSULE PO (22:21)
[2021-12-29] MEDS: Metoprolol Tartrate 25 MG TABLET PO (22:21)
[2021-12-30] VITALS (8 sets, daily range): BP systolic 121–143; BP diastolic 51–72; PULSE 78–86; RESP 16–18; TEMP 36.6–36.8; O2SAT 97–98
[2021-12-30 07:29] LABS: Glucose, Whole Blood 184 mg/dL (60-115)
[2021-12-30] MEDS: Insulin Lispro 100 UNIT/ML 3 ML VIAL SUBCUT ×4 (08:39→21:33)
[2021-12-30] MEDS: Aspirin Enteric Coated 81 MG TABLET.DR PO (08:41)
[2021-12-30] MEDS: metFORMIN HCl 1,000 MG TABLET 1000 MG PO ×2 (08:41→21:32)
[2021-12-30] MEDS: Pravastatin Sodium 40 MG TABLET PO (08:41)
[2021-12-30] MEDS: Gabapentin 300 MG CAPSULE PO ×3 (08:41→21:32)
[2021-12-30] MEDS: Metoprolol Tartrate 25 MG TABLET PO ×2 (08:41→21:32)
[2021-12-30] MEDS: Cholecalciferol (Vitamin D3) 25 MCG TABLET PO (08:41)
[2021-12-30] MEDS: Multivitamin TABLET 1 TAB PO (08:41)
[2021-12-30] MEDS: Sertraline HCL 50 MG TABLET 150 MG PO (08:41)
[2021-12-30] MEDS: Topiramate 25 MG TABLET PO ×2 (08:42→21:33)
[2021-12-30 09:14] LABS: Alanine Aminotransferase 8 U/L (0-40); Albumin Level 3.4 g/dL (3.5-5.0); Alkaline Phosphatase 49 U/L (39-117); Anion Gap 12 (12-20); Aspartate Amino Transferase 13 U/L (5-37); Bilirubin Total 1.7 mg/dL (0.0-1.0); Blood Urea Nitrogen 14 mg/dL (9-16); Calcium 8.6 mg/dL (8.4-10.2); Carbon Dioxide 25 mmol/L (22-29); Chloride 101 mmol/L (96-108); Creatinine Clr Calc Pharmacy 123.1; Estimated Glomerular Filt Rate > 60; Glucose Fasting 198 mg/dL (60-99); Magnesium 1.6 mg/dL (1.6-2.6); Potassium 3.5 mmol/L (3.3-5.1); Sodium 134 mmol/L (135-145); Total Protein 6.2 g/dL (6.5-8.0)
--- NOTE | 2021-12-30 09:29 | PC.NURSE ---
this morning's poc 184 insulin coverage given as documented. awaiting pharmacy to bring meds to ed
[2021-12-30] MEDS: Ammonium Lactate 12 % Lotion 226 GM BOTTLE 1 APPL TOPICAL (10:11)
[2021-12-30] MEDS: Mineral Oil/Petrolatum,White 106 GM Tube 1 APPL TOPICAL (10:11)
[2021-12-30] MEDS: glipiZIDE 10 MG TABLET PO (10:11)
--- NOTE | 2021-12-30 13:03 | MHC.CM.PN ---
LATE Charting Male 71 S/P fall x3. [facility] ER for evaluation. PT recommends STR. The patient provided 1 option, [facility]. The referral was sent out yesterday 12/29/21. The response was received. No bed offer r/t DX , he does not have a diagnosis to qualify for Acute rehab . The patient is requesting assistance @ home. A referral to [facility] was sent. CM will follow up on STR preferences today.
[2021-12-30 13:21] LABS: Glucose, Whole Blood 215 mg/dL (60-115)
--- NOTE | 2021-12-30 15:00 | PC.NURSE ---
pt seen by Pualine from Case Management. Per Pauline referrals were sent, awaiting response. Case Management will continue to follow up.
[2021-12-30 17:09] LABS: Glucose, Whole Blood 317 mg/dL (60-115)
[2021-12-30 21:00] LABS: Glucose, Whole Blood 275 mg/dL (60-115)
[2021-12-30] MEDS: Insulin Glargine,Hum.rec.anlog 100 UNIT/ML 10 ML VIAL 33 UNIT SUBCUT (21:33)
[2021-12-30] MEDS: Mirtazapine 30 MG TABLET PO (21:33)
[2021-12-31] VITALS: BP 142/74; PULSE 88; RESP 16; O2SAT 98
[2021-12-31 01:21] VITALS: RESP 14
[2021-12-31 06:00] VITALS: RESP 16
--- NOTE | 2021-12-31 06:11 | PC.NURSE ---
PATIENT IS ALERT, HELPED TOILETING TO THE COMMODE. PATIENT BEDDING CHANGED. NO DISTRESS NOTED. AWAITING PLACEMENT WITH CASE MANAGEMENT.
[2021-12-31 08:57] LABS: Glucose, Whole Blood 212 mg/dL (60-115)
[2021-12-31] MEDS: Pravastatin Sodium 40 MG TABLET PO (09:20)
[2021-12-31] MEDS: Cholecalciferol (Vitamin D3) 25 MCG TABLET PO (09:20)
[2021-12-31] MEDS: Topiramate 25 MG TABLET PO (09:20)
[2021-12-31] MEDS: Sertraline HCL 50 MG TABLET 150 MG PO (09:20)
[2021-12-31] MEDS: Aspirin Enteric Coated 81 MG TABLET.DR PO (09:20)
[2021-12-31] MEDS: Gabapentin 300 MG CAPSULE PO (09:20)
[2021-12-31] MEDS: Metoprolol Tartrate 25 MG TABLET PO (09:20)
[2021-12-31] MEDS: Multivitamin TABLET 1 TAB PO (09:20)
[2021-12-31] MEDS: metFORMIN HCl 1,000 MG TABLET 1000 MG PO (09:20)
[2021-12-31] MEDS: Insulin Lispro 100 UNIT/ML 3 ML VIAL SUBCUT ×2 (09:21→12:52)
[2021-12-31 12:44] LABS: Glucose, Whole Blood 221 mg/dL (60-115)
[2021-12-31] MEDS: glipiZIDE 10 MG TABLET PO (12:52)
[2021-12-31] MEDS: Mineral Oil/Petrolatum,White 106 GM Tube 1 APPL TOPICAL (12:52)
[2021-12-31] MEDS: Ammonium Lactate 12 % Lotion 226 GM BOTTLE 1 APPL TOPICAL (12:52)
--- NOTE | 2021-12-31 13:05 | MHC.CM.ED ---
Attempted to meet with patient in regards to discharge planning. Patient is sleeping. No family present. Clinical updates sent to [facility] to see if a bed can be offered. Continue to monitor for d/c needs.
[2021-12-31 13:47] LABS: Glucose, Whole Blood 219 mg/dL (60-115)
--- NOTE | 2021-12-31 13:47 | MHC.CM.ED ---
Met with patient in regards to d/c planning. Patient lives alone, ambulates independently and had no services prior to coming to the ER. Patient received 3 Moderna vaccines. PCP verified. Patient has been to [facility] in the past. Patient aware [facility] is not able to offer a bed at this time. Also explained [facility] is able to offer a bed. Patient is denying the need for rehab at this time. Patient's vehicle is in the parking lot and he will transport himself home. Tamiko AGUIRRE aware. Continue to monitor for d/c needs.
== END 2021-12-31 15:02 | disposition home or self-care (01) ==
PROVIDERS: Physician Assistant Medical; Emergency Provider Emergency Medicine; PCP Internal Medicine
DX: N39.0 Urinary tract infection, site not specified (principal); E83.42 Hypomagnesemia; E87.6 Hypokalemia; E11.9 Type 2 diabetes mellitus without complications; I10 Essential (primary) hypertension; E78.5 Hyperlipidemia, unspecified; F17.200 Nicotine dependence, unspecified, uncomplicated; Z91.81 History of falling; Z20.822 Contact with and (suspected) exposure to COVID-19; Z79.02 Long term (current) use of antithrombotics/antiplatelets; Z79.4 Long term (current) use of insulin; Z79.899 Other long term (current) drug therapy
CPT/HCPCS: 36415; 70450; 71045; 74176; 80053; 81001; 82947; 83605; 83735; 84484; 85025; 87040; 87086; 87088; 87186; 87635; 93005; 96365; 96367; 97162; 99285; J0696; J3475

== ENCOUNTER 2022-02-07 14:16 | Outpatient (REF) | payer MEDICARE, SELFPAY ==
[2022-02-07 16:35] LABS: MANUAL DIFF FLAG NO
[2022-02-07 16:42] LABS: Basophils Percent Auto 0.6 % (0-2); Eosinophils Absolute Auto 0.2 X10*3/uL (0.0-0.4); Eosinophils Percent Auto 2.8 % (0-4); Hematocrit 42.9 % (42.0-52.0); Hemoglobin 14.3 g/dl (14.0-18.0); Imm Gran Abs Auto 0.02 X10*3/uL (0.00-0.03); Imm Gran Pct Auto 0.3 % (0.0-0.4); Lymphocytes Absolute Auto 1.6 X10*3/uL (1.2-4.9); Mean Corpuscular HGB Conc 33.3 g/dl (31.0-36.0); Mean Corpuscular Hemoglobin 30.3 pg (27.0-33.0); Mean Corpuscular Volume 90.9 fL (80.0-98.0); Mean Platelet Volume 11.1 fL (9.4-12.4); Monocytes Absolute Auto 0.5 X10*3/uL (0.1-1.2); Monocytes Percent Auto 7.6 % (2-11); Neutrophils Absolute Auto 4.7 x10*3/uL (2.0-8.3); Neutrophils Percent Auto 65.7 % (45-73); Platelet Count 189 X10*3/uL (160-400); Red Blood Count 4.72 X10*6/uL (4.60-5.80); Red Cell Distribution Width 14.9 % (11.0-16.0); White Blood Count 7.1 X10*3/uL (4.8-10.8)
[2022-02-07 16:45] LABS: Appearance Urine HAZY; Color Urine YELLOW; Glucose Urine UA NEG (NEG); Leukocyte Esterase Urine 3+ (NEG); Nitrite Urine POS (NEG); UACC Culture Trigger YES; Urine Blood TRACE (NEG); Urine Ketones NEG (NEG); Urine Protein TRACE MG/DL (NEG-TRACE)
[2022-02-07 16:48] LABS: Estimated Average Glucose 169 mg/dL; Hemoglobin A1c % 7.5 %
[2022-02-07 16:50] LABS: Bacteria Urine 4+ /LPF
[2022-02-07 16:50] LABS: Alanine Aminotransferase 12 U/L (0-40); Alkaline Phosphatase 48 U/L (39-117); Anion Gap 11 (12-20); Aspartate Amino Transferase 14 U/L (5-37); Blood Urea Nitrogen 9 mg/dL (9-16); Calcium 9.6 mg/dL (8.4-10.2); Carbon Dioxide 24 mmol/L (22-29); Chloride 105 mmol/L (96-108); Cholesterol 156 mg/dL; Estimated Glomerular Filt Rate > 60; Glucose Fasting 109 mg/dL (60-99); HDL Cholesterol 47 mg/dL; LDL Cholesterol Calculated 90 mg/dl; Potassium 3.9 mmol/L (3.3-5.1); Sodium 136 mmol/L (135-145); Triglycerides 99 mg/dL
[2022-02-07 16:51] LABS: RBC Urine 0-2 /HPF (0); Squamous Epithelial Cell Urine 1+ /LPF
[2022-02-07 17:11] LABS: TSH reflex Free T4 1.44 uIU/mL (0.32-4.0); Vitamin D 25-OH Total 31.8 ng/mL (>30)
[2022-02-07 17:11] LABS: Creatinine Urine 108.32 mg/dL; Microalbum/Creatinine Ratio Ur 112.6 ug/mg cr
== END 2022-02-07 14:17 | disposition home or self-care (01) ==
LOC: HO.HMGCLDS 14:16
PROVIDERS: PCP Internal Medicine; Visit Provider Internal Medicine
DX: R19.7 Diarrhea, unspecified (principal); R10.9 Unspecified abdominal pain; E78.00 Pure hypercholesterolemia, unspecified; E11.9 Type 2 diabetes mellitus without complications; E55.9 Vitamin D deficiency, unspecified
CPT/HCPCS: 36415; 80053; 80061; 81001; 82043; 82306; 83036; 84443; 85025; 87086; 87088; 87186

== ENCOUNTER → 2022-04-11 14:59 | Outpatient (BNVA) | payer MEDICARE, SELFPAY | PROVIDERS: PCP Internal Medicine; Referring Provider Internal Medicine; Visit Provider Physician Assistant | DX: K52.9 Noninfective gastroenteritis and colitis, unspecified (principal); D36.9 Benign neoplasm, unspecified site | CPT/HCPCS: 99212 ==

== ENCOUNTER → 2022-04-30 11:35 | Outpatient (BNVA) | payer MEDICARE, SELFPAY | PROVIDERS: PCP Internal Medicine; Visit Provider Physician Assistant | DX: K52.9 Noninfective gastroenteritis and colitis, unspecified (principal); R10.9 Unspecified abdominal pain; K59.09 Other constipation; D36.9 Benign neoplasm, unspecified site | CPT/HCPCS: Q3014 ==

== ENCOUNTER 2022-05-08 14:20 | Outpatient (REF) | payer MEDICARE, SELFPAY ==
[2022-05-08 14:38] LABS: MANUAL DIFF FLAG NO
[2022-05-08 14:49] LABS: Appearance Urine CLEAR; Color Urine YELLOW; Glucose Urine UA 250 MG/DL (NEG); Leukocyte Esterase Urine NEG (NEG); Nitrite Urine NEG (NEG); Specific Gravity - Urine <= 1.005 (1.005-1.025); Urine Blood NEG (NEG); Urine Ketones NEG (NEG); Urine Protein NEG (NEG-TRACE)
[2022-05-08 14:53] LABS: Basophils Percent Auto 0.5 % (0-2); Eosinophils Absolute Auto 0.2 X10*3/uL (0.0-0.4); Eosinophils Percent Auto 2.6 % (0-4); Hematocrit 42.3 % (42.0-52.0); Hemoglobin 14.2 g/dl (14.0-18.0); Imm Gran Abs Auto 0.03 X10*3/uL (0.00-0.03); Imm Gran Pct Auto 0.4 % (0.0-0.4); Lymphocytes Absolute Auto 1.3 X10*3/uL (1.2-4.9); Lymphocytes Percent Auto 16.8 % (20-40); Mean Corpuscular HGB Conc 33.6 g/dl (31.0-36.0); Mean Corpuscular Volume 86.5 fL (80.0-98.0); Mean Platelet Volume 10.8 fL (9.4-12.4); Monocytes Absolute Auto 0.4 X10*3/uL (0.1-1.2); Monocytes Percent Auto 5.7 % (2-11); Neutrophils Absolute Auto 5.5 x10*3/uL (2.0-8.3); Platelet Count 160 X10*3/uL (160-400); Red Blood Count 4.89 X10*6/uL (4.60-5.80); Red Cell Distribution Width 15.3 % (11.0-16.0); White Blood Count 7.4 X10*3/uL (4.8-10.8)
[2022-05-08 15:11] LABS: Estimated Average Glucose 180 mg/dL; Hemoglobin A1c % 7.9 %
[2022-05-08 15:13] LABS: Creatinine Urine 82.05 mg/dL; Microalbum/Creatinine Ratio Ur 43.8 ug/mg cr
[2022-05-08 15:16] LABS: Alanine Aminotransferase 7 U/L (0-40); Albumin Level 4.2 g/dL (3.5-5.0); Alkaline Phosphatase 50 U/L (39-117); Anion Gap 12 (12-20); Aspartate Amino Transferase 11 U/L (5-37); Bilirubin Total 1.2 mg/dL (0.0-1.0); Blood Urea Nitrogen 10 mg/dL (9-16); Calcium 9.2 mg/dL (8.4-10.2); Carbon Dioxide 24 mmol/L (22-29); Chloride 103 mmol/L (96-108); Cholesterol 160 mg/dL; Estimated Glomerular Filt Rate > 60; Glucose Fasting 150 mg/dL (60-99); HDL Cholesterol 42 mg/dL; LDL Cholesterol Calculated 97 mg/dl; Potassium 3.4 mmol/L (3.3-5.1); Sodium 136 mmol/L (135-145); Total Protein 7.1 g/dL (6.5-8.0); Triglycerides 108 mg/dL
[2022-05-08 15:38] LABS: TSH reflex Free T4 1.59 uIU/mL (0.32-4.0); Vitamin D 25-OH Total 30.7 ng/mL (>30)
[2022-05-08 16:08] LABS: CDiff Gene PCR NEGATIVE (Negative)
== END 2022-05-08 14:21 | disposition home or self-care (01) ==
LOC: HO.LAB 14:20
PROVIDERS: Absent Provider Internal Medicine; PCP Internal Medicine; Visit Provider Physician Assistant
DX: E78.00 Pure hypercholesterolemia, unspecified (principal); E55.9 Vitamin D deficiency, unspecified; E11.9 Type 2 diabetes mellitus without complications; K52.9 Noninfective gastroenteritis and colitis, unspecified; I10 Essential (primary) hypertension
CPT/HCPCS: 36415; 80053; 80061; 81003; 82043; 82306; 83036; 84443; 85025; 87493

== ENCOUNTER 2022-08-23 08:25 | Day surgery (SDC) | payer MEDICARE, SELFPAY ==
[2022-08-20 15:03] VITALS: BMI 32.8
--- NOTE | 2022-08-22 13:34 | HO.ANESPROP2 ---
HPI - Anesthesia Eval Consult details Narrative: 72yo M for Upper Endoscopy and Colonoscopy [facility] Active Problems Active Problems: All Active Problems (Updated 04/30/22 @ 13:38 by Candis Mclaughlin PA-C) Tubular adenoma (Acute) Urinary tract infection due to Klebsiella species (Acute) Cellulitis of right lower leg (Acute) Urinary tract infection (Acute) Urinary incontinence (Acute) Stool incontinence (Acute) Abdominal pain (Acute) Frequent diarrhea (Acute) Bilateral lower leg cellulitis (Acute) Type 2 diabetes mellitus with microalbuminuria (Acute) Benign paroxysmal vertigo (Acute) Obesity due to excess calories (Acute) Keratotic lesion (Acute) Irritable bowel (Acute) Obesity (BMI 30-39.9) (Acute) Smoker (Acute) Depression (Acute) Posttraumatic stress disorder (Acute) Insomnia (Acute) Postprandial diarrhea (Acute) Vitamin B12 deficiency (Acute) Vitamin D deficiency (Acute) Nonintractable headache (Acute) Degenerative disc disease, cervical (Acute) Neuropathy (Acute) Lumbar degenerative disc disease (Acute) Benign essential hypertension (Acute) Pure hypercholesterolemia (Acute) Diabetes mellitus (Acute) HTN (hypertension) (Acute) Diabetes (Acute) Chronic diarrhea (Acute) Past Medical History Medical History Benign essential hypertension Benign paroxysmal vertigo Chronic diarrhea Degenerative disc disease, cervical Depression Diabetes Diabetes mellitus HTN (hypertension) Insomnia Irritable bowel Keratotic lesion Lumbar degenerative disc disease Neuropathy Nonintractable headache Obesity (BMI 30-39.9) Obesity due to excess calories Postprandial diarrhea Posttraumatic stress disorder Pure hypercholesterolemia Smoker Type 2 diabetes mellitus with microalbuminuria Vitamin B12 deficiency Vitamin D deficiency Family History Family History Father Diabetes CVD (cardiovascular disease) Mother Stroke Surgical History Surgical History History of cervical spinal surgery History of laparoscopic cholecystectomy History of lumbar surgery History of surgery Social History Social History Household Members: Children Household Members Other:: lives with his son Housing: Apartment Alcohol intake: current Alcohol intake frequency: holidays/special occasions only Patient Tobacco Use Status: Current everyday Tobacco user Tobacco use type: Cigar Cigarettes Per Day: 0.5 Second Hand Smoke Exposure: Yes service: Yes Current occupational status: retired Cognitive needs: No Hearing needs: No Vision needs: Yes (reading glasses) Meds Allergies Allergy/AdvReac Type Severity Reaction Status Date / Time No Known Allergies Allergy Verified 07/08/22 00:02 [No Known Allergies*] Home Medications Medication Instructions Recorded Confirmed Last Taken Type cholecalciferol (vitamin D3) 25 25 mcg PO DAILY 11/22/20 07/08/22 Unknown History mcg (1,000 unit) capsule mirtazapine 30 mg disintegrating 30 mg PO BEDTIME 11/22/20 07/08/22 Unknown History tablet insulin aspar prt-insulin aspart 30 unit subcut BID 04/05/21 07/08/22 Unknown History 100 unit/mL (70-30) subcutaneous soln (Novolog Mix 70-30 U-100 Insuln) melatonin 1 mg tablet 1 mg PO BEDTIME PRN Sleep 11/06/21 07/08/22 Unknown History sertraline 100 mg tablet 150 mg PO DAILY 11/06/21 07/08/22 Unknown History topiramate 25 mg tablet 25 mg PO BID 11/06/21 07/08/22 Unknown History ammonium lactate 12 % lotion 1 appl topical DAILY 12/29/21 07/08/22 Unknown History aspirin 81 mg tablet,delayed 81 mg PO DAILY 12/29/21 07/08/22 Unknown History release vitamin B complex 1 cap PO DAILY 12/29/21 07/08/22 Unknown History white petrolatum-mineral oil lotion 1 ea topical DAILY 12/29/21 07/08/22 Unknown History Exam Exam Date and Time: August 22, 2022 1334 Height,Weight and Vital Signs: Height 6 ft 2 in Weight 116.12 kg Pertinent Lab Results Pertinent Lab Results: Laboratory Tests 05/08/22 05/08/22 14:35 14:35 WBC 7.4 Hgb 14.2 Hct 42.3 Plt Count 160 Sodium 136 Potassium 3.4 Chloride 103 Carbon Dioxide 24 BUN 10 Creatinine 0.85 Narrative Narrative: EKG 12/2021 Vent. Rate : 095 BPM ? ? Atrial Rate : 095 BPM ?? P-R Int : 138 ms? QRS Dur : 090 ms ? ? QT Int : 372 ms ? ? ? P-R-T Axes : 054 044 057 degrees ?? QTc Int : 467 ms ? Sinus rhythm with frequent Premature ventricular complexes Nonspecific ST abnormality Abnormal ECG When compared with ECG of 17-MAY-2011 12:31, Premature ventricular complexes are now Present Assessment and Plan Assessment Anesthesia Assessment: Chart Reviewed
[2022-08-23 09:40] VITALS: BMI 32.1
[2022-08-23 09:48] VITALS: BP 149/70; PULSE 76; RESP 18; TEMP 36.4; O2SAT 97
[2022-08-23 10:10] LABS: Glucose, Whole Blood 224 mg/dL (60-115)
--- NOTE | 2022-08-23 10:19 | MHC.SHP ---
Pre-Procedural Eval Section A Date of Service: 08/23/22 The patient is an INPATIENT: No The History & Physical has been completed within 30 days and I have reviewed it.: No Section B Chief Complaint: benign neoplasm,gastroenteritis and colitis Details of Present Illness: Chronic diarrhea Relevant Family History (Specify if Yes): Yes Relevant Social History: Tobacco Use Present Medications: see Short Stay Collaborative assessment Medical History: Significant History (Hypertension, diabetes mellitus) History of Previous Operations: Relevant previous surgery/procedure and date(s) (History of cervical spinal surgery History of laparoscopic cholecystectomy History of lumbar surgery History of surgery) Allergies: Allergies Allergy/AdvReac Type Severity Reaction Status Date / Time No Known Allergies Allergy Verified 07/08/22 00:02 [No Known Allergies*] Review of Systems Sugical H&P ROS: Negative: Constitution, Cardiovascular and Respiratory and Yes, Specify: Gastrointestinal (chronic diarrhea) Exam Surgical H&P Exam: Normal: Heart, Normal: Lungs, Normal: Extremities and Normal: Abdomen Plan Diagnosis/Plan: Change (Pt stated he did not take any prep (he was not aware that he needed to). Offered to proceed with EGD and reschedule colonoscopy at a later date.) I have reviewed the history and physical and performed a pertinent physical examination on my patient. No changes have occurred unless specified.
[2022-08-23] MEDS: Albuterol Sulfate (0.083%) 2.5 MG/3 ML VIAL.NEB INHALE (10:28)
[2022-08-23 10:29] VITALS: PULSE 72; RESP 16; O2SAT 98
--- NOTE | 2022-08-23 11:19 | P.BOP_ITS ---
Brief Operative Note Date of Service: 08/23/22 Pre-op diagnosis: Abdominal pain, chronic diarrhea Post-op diagnosis: other (Gastritis, duodenitis) Procedure: FLEXIBLE TRANSORAL UPPER GASTROINTESTINAL ENDOSCOPY WITH BIOPSIES Consent: Indications for the procedure and potential complications of bleeding, perforation, reaction to medications and missed diagnosis were discussed with the patient and informed consent was obtained. Instrument: Olympus GIF H 190 mid size upper endoscope Monitoring: Vital signs and clinical assessment, continuous EKG monitoring, Pulse oximetry, Carbon Dioxide monitoring and blood pressure monitoring were done throughout the procedure. Procedure: The patient was placed in the left lateral decubitis position and pre-procedure medications were administered and a bite block was placed. The endoscope was inserted into the mouth and advanced under direct vision to the third part of duodenum. A careful inspection was made as the upper endoscope was withdrawn including a retroflexed examination of the proximal stomach; Findings and interventions are described below. Findings: Larynx: Normal Esophagus: GE junction at 40 cms. No esophagitis or Kelley's. Stomach: Moderate diffuse gastric erythema with nodular appearing mucosa in the gastric body. A few chronic appearing erosions in the pre-pyloric area. Biopsies were obtained from the gastric antrum and body. Grade 2 flap valve on retroflexed examination of the cardia. Duodenum: Patchy erythema in the bulb and a 10 mm benign appearing nodule in the apex of the bulb - biopsied. Normal descending duodenum - biopsies obtained to check for celiac sprue. Intervention: Biopsies as noted above Impression and Post Procedure Diagnosis: Endoscopy Findings: STOMACH: Moderate diffuse gastric erythema with nodular appearing mucosa in the gastric body. A few chronic appearing erosions in the pre-pyloric area. Biopsies were obtained from the gastric antrum and body. DUODENUM: Patchy erythema in the bulb and a 10 mm benign appearing nodule in the apex of the bulb - biopsied. Normal descending duodenum - biopsies obtained to check for celiac sprue. Plan: Await pathology results Patient has an appointment on 09/05/22 in the GI Clinic with TIMOTHY Willingham. Above findings were reviewed with the patient and Gastritis handout was given in the discharge area Pt advised to re-schedule appt for colonoscopy (Pt was scheduled for an EGD and Colon today and did not take the prep for the colonoscopy - only EGD could be performed). Surgeon: Nader Norton MD Anesthesia: MAC (Dr DiCampli) Was an Construction Or Leak Gang Laborer used for this Procedure?: Yes Construction Or Leak Gang Laborer: Leland Sanders Estimated blood loss (mL): 0 Pathology: other ( A: SMALL BOWEL BX'S B: DUODENAL NODULE C: BX'S GASTRIC ANTRUM D: BX'S GASTRIC BODY) Condition: stable Disposition: PACU
[2022-08-23 11:42] VITALS: BP 92/53; PULSE 76; RESP 16; TEMP 36.4; O2SAT 95
--- NOTE | 2022-08-23 11:50 | P.OP_ITS ---
Operative Note Operative Note Date of Service: 08/23/22 Narrative: Pre-op diagnosis: Abdominal pain, chronic diarrhea Post-op diagnosis:?other (Gastritis, duodenitis) Procedure: FLEXIBLE TRANSORAL UPPER GASTROINTESTINAL ENDOSCOPY WITH BIOPSIES Consent:?Indications for the procedure and potential complications of bleeding, perforation, reaction to medications and missed diagnosis were discussed with the patient and informed consent was obtained. Instrument:?Olympus GIF H 190 mid size upper endoscope Monitoring: Vital signs and clinical assessment, continuous EKG monitoring, Pulse oximetry, Carbon Dioxide monitoring and blood pressure monitoring were done throughout the procedure. Procedure:?The patient was placed in the left lateral decubitis position and pre-procedure medications were administered and a bite block was placed. The endoscope was inserted into the mouth and advanced under direct vision to the third part of duodenum. A careful inspection was made as the upper endoscope was withdrawn including a retroflexed examination of the proximal stomach; Findings and interventions are described below. Findings: Larynx:? Normal Esophagus: GE junction at 40 cms. No esophagitis or Kelley's. Stomach: Moderate diffuse gastric erythema with nodular appearing mucosa in the gastric body. A few chronic appearing erosions in the pre-pyloric area.? Biopsies were obtained from the gastric antrum and body. Grade 2 flap valve on retroflexed examination of the cardia. Duodenum: Patchy erythema in the bulb and a 10 mm benign appearing nodule in the apex of the bulb - biopsied. ? Normal descending duodenum - biopsies obtained to check for celiac sprue. Intervention: Biopsies as noted above Impression and Post Procedure Diagnosis: Endoscopy Findings: STOMACH: Moderate diffuse gastric erythema with nodular appearing mucosa in the gastric body. A few chronic appearing erosions in the pre-pyloric area.? Biopsies were obtained from the gastric antrum and body. DUODENUM: Patchy erythema in the bulb and a 10 mm benign appearing nodule in the apex of the bulb - biopsied. ? Normal descending duodenum - biopsies obtained to check for celiac sprue. Plan: Await pathology results Patient has an appointment on 09/05/22 in the GI Clinic with TIMOTHY Willingham. Above findings were reviewed with the patient and Gastritis handout was given in the discharge area Pt advised to re-schedule appt for colonoscopy (Pt was scheduled for an EGD and Colon today and did not take the prep for the colonoscopy - only EGD could be performed). Surgeon: Nader Norton MD Anesthesia:?MAC (Dr Rivera) Was an Counselor At Law used for this Procedure?:?Yes Counselor At Law:?Leland Sanders Estimated blood loss (mL):?0 Pathology:?other ( A: SMALL BOWEL BX'S? B: DUODENAL NODULE? C: BX'S GASTRIC ANTRUM? D: BX'S GASTRIC BODY) Condition:?stable Disposition:?PACU
[2022-08-23 11:57] VITALS: BP 97/66; PULSE 79; RESP 17; O2SAT 95
[2022-08-23 12:10] LABS: Glucose, Whole Blood 244 mg/dL (60-115)
[2022-08-23 12:12] VITALS: BP 149/75; PULSE 73; RESP 18; TEMP 36.1; O2SAT 96
== END 2022-08-23 12:49 | disposition home or self-care (01) ==
PROVIDERS: PCP Internal Medicine; Visit Provider Internal Medicine Gastroenterology
PROC: (CPT 43239; principal; 2022-08-23 10:10)
DX: K52.9 Noninfective gastroenteritis and colitis, unspecified (principal); K29.70 Gastritis, unspecified, without bleeding; K29.80 Duodenitis without bleeding; D13.2 Benign neoplasm of duodenum; K59.09 Other constipation; I10 Essential (primary) hypertension; E11.9 Type 2 diabetes mellitus without complications; Z79.4 Long term (current) use of insulin; Z90.49 Acquired absence of other specified parts of digestive tract; Z79.82 Long term (current) use of aspirin; Z79.899 Other long term (current) drug therapy; F17.200 Nicotine dependence, unspecified, uncomplicated
CPT/HCPCS: 43239; 82947; 88305; 88342; 94640

== ENCOUNTER 2022-09-03 14:50 | Outpatient (REF) | payer MEDICARE, SELFPAY ==
[2022-09-03 15:08] LABS: MANUAL DIFF FLAG NO
[2022-09-03 15:25] LABS: Appearance Urine Cloudy; Color Urine Yellow; Glucose Urine UA >=1000 mg/dL (Negative); Leukocyte Esterase Urine Moderate (2+) (Negative); Nitrite Urine Negative (Negative); PH 5.5 (5.0-9.0); UMIC TRIGGER UACC YES; Urine Blood Negative (Negative); Urine Ketones Trace mg/dL (Negative); Urine Protein Negative (Neg-Trace)
[2022-09-03 15:36] LABS: Basophils Absolute Auto 0.1 X10*3/uL (0.0-0.2); Basophils Percent Auto 0.9 % (0-2); Eosinophils Absolute Auto 0.2 X10*3/uL (0.0-0.4); Eosinophils Percent Auto 2.8 % (0-4); Hematocrit 41.6 % (42.0-52.0); Hemoglobin 14.4 g/dl (14.0-18.0); Imm Gran Abs Auto 0.03 X10*3/uL (0.00-0.03); Imm Gran Pct Auto 0.5 % (0.0-0.4); Lymphocytes Absolute Auto 1.1 X10*3/uL (1.2-4.9); Lymphocytes Percent Auto 17.1 % (20-40); Mean Corpuscular HGB Conc 34.6 g/dl (31.0-36.0); Mean Corpuscular Hemoglobin 30.4 pg (27.0-33.0); Mean Corpuscular Volume 87.9 fL (80.0-98.0); Mean Platelet Volume 10.6 fL (9.4-12.4); Monocytes Absolute Auto 0.4 X10*3/uL (0.1-1.2); Monocytes Percent Auto 5.8 % (2-11); Neutrophils Absolute Auto 4.6 x10*3/uL (2.0-8.3); Neutrophils Percent Auto 72.9 % (45-73); Platelet Count 180 X10*3/uL (160-400); Red Blood Count 4.73 X10*6/uL (4.60-5.80); Red Cell Distribution Width 15.9 % (11.0-16.0); White Blood Count 6.3 X10*3/uL (4.8-10.8)
[2022-09-03 15:43] LABS: Estimated Average Glucose 180 mg/dL; Hemoglobin A1c % 7.9 %
[2022-09-03 15:50] LABS: Bacteria Urine None Seen (None Seen); Hyaline Casts Urine 0-2 /LPF (0-2); RBC Urine 0-2 /HPF (0-2); Squamous Epithelial Cell Urine 0-2 /HPF (0-2); UACC Culture Trigger YES
[2022-09-03 15:52] LABS: Creatinine Urine 122.91 mg/dL; Microalbum/Creatinine Ratio Ur 25.2 ug/mg cr
[2022-09-03 15:53] LABS: Other Crystals Urine 3+
[2022-09-03 15:57] LABS: Alanine Aminotransferase 12 U/L (0-40); Albumin Level 4.1 g/dL (3.5-5.0); Alkaline Phosphatase 90 U/L (39-117); Anion Gap 16 (12-20); Aspartate Amino Transferase 14 U/L (5-37); Bilirubin Total 0.8 mg/dL (0.0-1.0); Blood Urea Nitrogen 19 mg/dL (9-16); Calcium 9.1 mg/dL (8.4-10.2); Carbon Dioxide 22 mmol/L (22-29); Chloride 99 mmol/L (96-108); Cholesterol 169 mg/dL; Estimated Glomerular Filt Rate > 60; Glucose Fasting 252 mg/dL (60-99); HDL Cholesterol 33 mg/dL; LDL Cholesterol Calculated 81 mg/dl; Potassium 4.5 mmol/L (3.3-5.1); Sodium 132 mmol/L (135-145); Total Protein 7.2 g/dL (6.5-8.0); Triglycerides 278 mg/dL
[2022-09-03 16:17] LABS: TSH reflex Free T4 1.56 uIU/mL (0.32-4.0); Vitamin D 25-OH Total 32.9 ng/mL (>30)
[2022-09-03 16:29] LABS: Folate 3.4 ng/mL (> or = 4.0); Vitamin B12 590 pg/mL (200-900)
== END 2022-09-03 14:51 | disposition home or self-care (01) ==
LOC: HO.LAB 14:50
PROVIDERS: PCP Internal Medicine; Visit Provider Internal Medicine
DX: I10 Essential (primary) hypertension (principal); E55.9 Vitamin D deficiency, unspecified; E53.8 Deficiency of other specified B group vitamins; E78.00 Pure hypercholesterolemia, unspecified; E11.9 Type 2 diabetes mellitus without complications
CPT/HCPCS: 36415; 80053; 80061; 81001; 82043; 82306; 82607; 82746; 83036; 84443; 85025; 87086

== ENCOUNTER 2022-09-27 12:29 | Outpatient (RCR) | payer MEDICARE, SELFPAY | END 2022-11-05 12:01 | disposition home or self-care (01) | LOC: HO.WCC 12:29 | PROVIDERS: PCP Internal Medicine; Visit Provider Physician Assistant | DX: Z09 Encounter for follow-up examination after completed treatment for conditions other than malignant neoplasm (principal); E11.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 mellitus with diabetic neuropathy, unspecified; I10 Essential (primary) hypertension; F17.290 Nicotine dependence, other tobacco product, uncomplicated; F12.90 Cannabis use, unspecified, uncomplicated; Z87.2 Personal history of diseases of the skin and subcutaneous tissue; Z91.81 History of falling | CPT/HCPCS: 97597; 99212 ==

== ENCOUNTER 2022-12-03 13:58 | Outpatient (REF) | payer MEDICARE, SELFPAY ==
--- NOTE | ~2022-12-03 | US_ITS ---
EXAMINATION: Noninvasive assessment of the bilateral lower extremities with ARTERIAL DUPLEX . CLINICAL INFORMATION: Peripheral arterial disease with lower extremity wounds TECHNIQUE: Duplex Doppler techniques with waveform analysis and measurement of velocities in the bilateral common femoral, profunda femoris, superficial femoral, popliteal and tibial arteries were performed. COMPARISON: None FINDINGS: DIRECT DUPLEX DOPPLER FINDINGS: RIGHT LEG: Common femoral artery: 125 cm/s, phasicity: Biphasic Profunda femoris artery: 100 cm/s, phasicity: Biphasic Superficial femoral artery (proximal): 134 cm/s, phasicity: Biphasic Superficial femoral artery (mid): 124 cm/s, phasicity: Triphasic Superficial femoral artery (distal): 165 cm/s, phasicity: Triphasic Popliteal artery: 175 cm/s, phasicity: Triphasic Posterior tibial artery: 119 cm/s, phasicity: Triphasic Peroneal artery: 90.7 cm/s, phasicity: Monophasic LEFT LEG: Common femoral artery: 155 cm/s, phasicity: Biphasic Profunda femoris artery: 58.5 cm/s, phasicity: Biphasic Superficial femoral artery (proximal): 165 cm/s, phasicity: Triphasic Superficial femoral artery (mid): 150 cm/s, phasicity: Triphasic Superficial femoral artery (distal): 180 cm/s, phasicity: Monophasic Popliteal artery: 103 cm/s, phasicity: Triphasic Posterior tibial artery: 120 cm/s, phasicity: Monophasic Peroneal artery: 79 cm/s, phasicity: Monophasic US/US arterial duplex LE BI IMPRESSION: Right leg: Patent arterial flow throughout the right lower extremity. No significant arterial occlusion Left leg: Patent arterial flow throughout the right lower extremity. No significant arterial occlusion
== END 2022-12-03 13:59 | disposition home or self-care (01) ==
LOC: HO.US 13:58
PROVIDERS: PCP Internal Medicine; Visit Provider Physician Assistant
DX: L97.211 Non-pressure chronic ulcer of right calf limited to breakdown of skin (principal); I73.9 Peripheral vascular disease, unspecified
CPT/HCPCS: 93925

== ENCOUNTER → 2022-12-24 15:04 | Outpatient (BNVA) | payer MEDICARE, SELFPAY | PROVIDERS: PCP Internal Medicine; Visit Provider Psychiatry & Neurology Neurology | DX: R29.6 Repeated falls (principal); R26.81 Unsteadiness on feet; M47.812 Spondylosis without myelopathy or radiculopathy, cervical region; M47.816 Spondylosis without myelopathy or radiculopathy, lumbar region; E11.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 mellitus with diabetic neuropathy, unspecified; R80.9 Proteinuria, unspecified | CPT/HCPCS: 99202 ==

== ENCOUNTER 2023-01-10 15:14 | Outpatient (REF) | payer MEDICARE, SELFPAY ==
[2023-01-10 15:32] LABS: MANUAL DIFF FLAG NO
[2023-01-10 16:40] LABS: Basophils Absolute Auto 0.1 X10*3/uL (0.0-0.2); Basophils Percent Auto 0.7 % (0-2); Eosinophils Absolute Auto 0.2 X10*3/uL (0.0-0.4); Eosinophils Percent Auto 3.5 % (0-4); Hematocrit 43.9 % (42.0-52.0); Hemoglobin 15.1 g/dl (14.0-18.0); Imm Gran Abs Auto 0.04 X10*3/uL (0.00-0.03); Imm Gran Pct Auto 0.6 % (0.0-0.4); Lymphocytes Absolute Auto 1.5 X10*3/uL (1.2-4.9); Lymphocytes Percent Auto 21.4 % (20-40); Mean Corpuscular HGB Conc 34.4 g/dl (31.0-36.0); Mean Corpuscular Hemoglobin 30.4 pg (27.0-33.0); Mean Corpuscular Volume 88.3 fL (80.0-98.0); Mean Platelet Volume 10.4 fL (9.4-12.4); Monocytes Absolute Auto 0.5 X10*3/uL (0.1-1.2); Monocytes Percent Auto 7.8 % (2-11); Neutrophils Absolute Auto 4.5 x10*3/uL (2.0-8.3); Platelet Count 187 X10*3/uL (160-400); Red Blood Count 4.97 X10*6/uL (4.60-5.80); Red Cell Distribution Width 13.5 % (11.0-16.0); White Blood Count 6.8 X10*3/uL (4.8-10.8)
[2023-01-10 16:40] LABS: Appearance Urine Clear; Color Urine Yellow; Glucose Urine UA 500 mg/dL (Negative); Leukocyte Esterase Urine Negative (Negative); Nitrite Urine Negative (Negative); Urine Blood Negative (Negative); Urine Ketones Negative (Negative); Urine Protein Trace mg/dL (Neg-Trace)
[2023-01-10 16:47] LABS: Estimated Average Glucose 217 mg/dL; Hemoglobin A1c % 9.2 %
[2023-01-10 16:59] LABS: Creatinine Urine 160.31 mg/dL; Microalbum/Creatinine Ratio Ur 39.2 ug/mg cr
[2023-01-10 17:08] LABS: Alanine Aminotransferase 13 U/L (0-40); Alkaline Phosphatase 61 U/L (39-117); Anion Gap 12 (12-20); Aspartate Amino Transferase 15 U/L (5-37); Bilirubin Total 1.3 mg/dL (0.0-1.0); Blood Urea Nitrogen 15 mg/dL (9-16); Calcium 9.2 mg/dL (8.4-10.2); Carbon Dioxide 27 mmol/L (22-29); Chloride 103 mmol/L (96-108); Cholesterol 163 mg/dL; Estimated Glomerular Filt Rate > 60; Glucose Fasting 217 mg/dL (60-99); HDL Cholesterol 41 mg/dL; LDL Cholesterol Calculated 104 mg/dl; Potassium 4.1 mmol/L (3.3-5.1); Sodium 138 mmol/L (135-145); Total Protein 6.9 g/dL (6.5-8.0); Triglycerides 94 mg/dL
[2023-01-10 17:37] LABS: Folate 4.3 ng/mL (> or = 4.0); TSH reflex Free T4 1.39 uIU/mL (0.32-4.0); Vitamin B12 913 pg/mL (200-900); Vitamin D 25-OH Total 31.7 ng/mL (>30)
== END 2023-01-10 15:15 | disposition home or self-care (01) ==
LOC: HO.LAB 15:14
PROVIDERS: PCP Internal Medicine; Visit Provider Internal Medicine
DX: E55.9 Vitamin D deficiency, unspecified (principal); E53.8 Deficiency of other specified B group vitamins; E78.00 Pure hypercholesterolemia, unspecified; E11.9 Type 2 diabetes mellitus without complications; R30.0 Dysuria; I10 Essential (primary) hypertension
CPT/HCPCS: 36415; 80053; 80061; 81003; 82043; 82306; 82607; 82746; 83036; 84443; 85025

== ENCOUNTER 2023-04-07 13:21 | Outpatient (REF) | payer MEDICARE, SELFPAY ==
[2023-04-07 13:40] LABS: MANUAL DIFF FLAG NO
[2023-04-07 14:25] LABS: Basophils Absolute Auto 0.1 X10*3/uL (0.0-0.2); Basophils Percent Auto 0.8 % (0-2); Eosinophils Absolute Auto 0.2 X10*3/uL (0.0-0.4); Eosinophils Percent Auto 2.8 % (0-4); Hematocrit 43.9 % (42.0-52.0); Hemoglobin 15.1 g/dl (14.0-18.0); Imm Gran Abs Auto 0.04 X10*3/uL (0.00-0.03); Imm Gran Pct Auto 0.5 % (0.0-0.4); Lymphocytes Absolute Auto 1.6 X10*3/uL (1.2-4.9); Lymphocytes Percent Auto 18.6 % (20-40); Mean Corpuscular HGB Conc 34.4 g/dl (31.0-36.0); Mean Corpuscular Hemoglobin 30.7 pg (27.0-33.0); Mean Corpuscular Volume 89.2 fL (80.0-98.0); Mean Platelet Volume 10.6 fL (9.4-12.4); Monocytes Absolute Auto 0.6 X10*3/uL (0.1-1.2); Monocytes Percent Auto 6.7 % (2-11); Neutrophils Absolute Auto 6.1 x10*3/uL (2.0-8.3); Neutrophils Percent Auto 70.6 % (45-73); Platelet Count 185 X10*3/uL (160-400); Red Blood Count 4.92 X10*6/uL (4.60-5.80); Red Cell Distribution Width 14.5 % (11.0-16.0); White Blood Count 8.6 X10*3/uL (4.8-10.8)
[2023-04-07 14:45] LABS: Estimated Average Glucose 189 mg/dL; Hemoglobin A1c % 8.2 %
[2023-04-07 14:58] LABS: Appearance Urine Clear; Color Urine Yellow; Glucose Urine UA Negative (Negative); Leukocyte Esterase Urine Negative (Negative); Nitrite Urine Negative (Negative); Urine Blood Negative (Negative); Urine Ketones Negative (Negative); Urine Protein Negative (Neg-Trace)
[2023-04-07 15:04] LABS: Alanine Aminotransferase 14 U/L (0-40); Albumin Level 4.1 g/dL (3.5-5.0); Alkaline Phosphatase 47 U/L (39-117); Anion Gap 15 (12-20); Aspartate Amino Transferase 16 U/L (5-37); Bilirubin Total 1.5 mg/dL (0.0-1.0); Blood Urea Nitrogen 14 mg/dL (9-16); Calcium 9.7 mg/dL (8.4-10.2); Carbon Dioxide 21 mmol/L (22-29); Chloride 105 mmol/L (96-108); Cholesterol 161 mg/dL; Estimated Glomerular Filt Rate > 60; Glucose Fasting 130 mg/dL (60-99); HDL Cholesterol 34 mg/dL; LDL Cholesterol Calculated 98 mg/dl; Potassium 4.2 mmol/L (3.3-5.1); Sodium 137 mmol/L (135-145); Total Protein 6.9 g/dL (6.5-8.0); Triglycerides 148 mg/dL
[2023-04-07 15:22] LABS: Folate 4.8 ng/mL (> or = 4.0); TSH reflex Free T4 1.98 uIU/mL (0.32-4.0); Vitamin B12 694 pg/mL (200-900); Vitamin D 25-OH Total 33.2 ng/mL (>30)
[2023-04-07 16:22] LABS: Creatinine Urine 61.69 mg/dL; Microalbum/Creatinine Ratio Ur 17.8 ug/mg cr
== END 2023-04-07 13:22 | disposition home or self-care (01) ==
LOC: HO.LAB 13:21
PROVIDERS: PCP Internal Medicine; Visit Provider Internal Medicine
DX: E11.9 Type 2 diabetes mellitus without complications (principal); E78.00 Pure hypercholesterolemia, unspecified; E55.9 Vitamin D deficiency, unspecified; E53.8 Deficiency of other specified B group vitamins; R30.0 Dysuria; I10 Essential (primary) hypertension
CPT/HCPCS: 36415; 80053; 80061; 81003; 82043; 82306; 82607; 82746; 83036; 84443; 85025

== ENCOUNTER 2023-06-12 14:28 | Outpatient (AMB) | payer MEDICARE, SELFPAY ==
--- NOTE | 2023-06-12 14:30 | MHC.OFFVIS ---
Intake Vital Signs 06/12/23 14:31 Height 6 ft 2 in Weight 244 lb 11.41 oz BMI 31.4 Blood Pressure Location Lt brachial Position Sitting Intake Visit Reasons: Colonoscopy screening Intake Note: Tin presents in the office today as a colonoscopy screening. CC: He states that he brings a diaper with him everywhere he goes just in case. This morning he was having diarrhea. He eats and it comes right out. He had two meals last night and it comes out with diarrhea. He has pains in his stomach. Treating Engineer Helper Required: No Allergies No Known Allergies [No Known Allergies*] Allergy (Verified 06/12/23 14:34) Medication List - Last Reconciled 06/12/23 by Candis Mclaughlin PA-C [ADULT PULL-UPS As directed] ammonium lactate 12% 1 appl topical DAILY aspirin 81 mg PO DAILY blood sugar diagnostic (FreeStyle Lite Strips) 1 strip miscellaneous TID cholecalciferol (vitamin D3) 25 mcg PO DAILY gabapentin 300 mg PO TID insulin glargine 10 units subcut QPM lancets (FreeStyle Lancets) 1 gauge topical TID loperamide (Imodium A-D) 2 mg PO Q6H PRN lovastatin 40 mg PO DAILY melatonin 1 mg PO BEDTIME PRN metformin 1,000 mg PO BID metoprolol tartrate 25 mg PO BID mirtazapine 30 mg PO BEDTIME semaglutide (Ozempic) 0.25 mg (0.4 mL) subcut QWEEK sertraline 150 mg PO DAILY topiramate 25 mg PO BID vitamin B complex 1 cap PO DAILY white petrolatum-mineral oil 1 ea topical DAILY HPI HPI Comments History of Present Illness Details A 73 y/0 male sent for EGD colonoscopy - only EGD done- pt did not take colon prep-he was to reschedule however he presents today to do so-he is anxious to have a colonoscopy in get it over with. He says bowels continue to be loose, he does not have any abdominal pain or any blood in stool- he had taken imodium then d/cd Diabetes not well controlled Appetite is good-he has no issues He does not have much money- He has no nausea, vomiting, hematemesis, hematochezia fever or chills PFSH Medical History Benign essential hypertension Benign paroxysmal vertigo Chronic diarrhea Degenerative disc disease, cervical Depression Diabetes Diabetes mellitus HTN (hypertension) Insomnia Irritable bowel Keratotic lesion Lumbar degenerative disc disease Neuropathy Nonintractable headache Obesity (BMI 30-39.9) Obesity due to excess calories Postprandial diarrhea Posttraumatic stress disorder Pure hypercholesterolemia Smoker Type 2 diabetes mellitus with microalbuminuria Vitamin B12 deficiency Vitamin D deficiency Surgical History History of cervical spinal surgery History of esophagogastroduodenoscopy (EGD) History of laparoscopic cholecystectomy History of lumbar surgery History of surgery Family History Father Diabetes CVD (cardiovascular disease) Mother Stroke Social History Household Members: Children Household Members Other:: lives with his son Housing: Apartment Alcohol intake: current Alcohol intake frequency: holidays/special occasions only Patient Tobacco Use Status: Current everyday Tobacco user Tobacco use type: Cigar Cigarettes Per Day: 0.5 Second Hand Smoke Exposure: Yes service: Yes Current occupational status: retired Cognitive needs: No Hearing needs: No Vision needs: Yes (reading glasses) Review of Systems Const All systems reviewed & are unremarkable except as noted in HPI and below Card Denies chest pain and Denies dyspnea Resp Denies dyspnea GI Denies abdominal pain and Reports loose stools Physical Exam Vital Signs: BMI result Body Mass Index 31.4 Const General: cooperative, healthy appearing and no acute distress Orientation/consciousness: patient oriented x3 Limitations: other limitations (walking stick) Eyes Sclerae: sclerae normal Resp Effort & Inspection: normal respiratory effort and able to speak in complete sentences Auscultation: clear to auscultation bilaterally Cardio Rate: regular rate Rhythm: regular rhythm Heart sounds: S1 normal heart sound present and S2 normal heart sound present GI Palpation (GI): Soft to palpation and nontender Auscultation: normal bowel sounds Skin Other: lower extremeties General skin exam: crusts, dry skin, erythema and Excoriation Neuro General: patient oriented x3 Psych Mental Status: mental status grossly normal Speech and movement: Normal speech and movement present and Clear speech present Affect: normal affect Attitude: cooperative Thought content: Normal thought content present Results Reviewed Results Reviewed: Findings: Larynx:? Normal Esophagus: GE junction at 40 cms. No esophagitis or Kelley's. Stomach: Moderate diffuse gastric erythema with nodular appearing mucosa in the gastric body. A few chronic appearing erosions in the pre-pyloric area.? Biopsies were obtained from the gastric antrum and body. Grade 2 flap valve on retroflexed examination of the cardia. Duodenum: Patchy erythema in the bulb and a 10 mm benign appearing nodule in the apex of the bulb - biopsied. ? Normal descending duodenum - biopsies obtained to check for celiac sprue. Intervention: Biopsies as noted above Impression and Post Procedure Diagnosis: Endoscopy Findings: STOMACH: Moderate diffuse gastric erythema with nodular appearing mucosa in the gastric body. A few chronic appearing erosions in the pre-pyloric area.? Biopsies were obtained from the gastric antrum and body. DUODENUM: Patchy erythema in the bulb and a 10 mm benign appearing nodule in the apex of the bulb - biopsied. ? Normal descending duodenum - biopsies obtained to check for celiac sprue. Plan: Await pathology results milagros:?Tin Navarro Age/Sex: 72/M Attending: Nader Norton MD : 1950 Submitted by: Nader Norton MD Copies to: Mode Wiggins MD MR #: [id number] ? Status: [facility] Collected: 08/23/22 Location: [facility] Received: 08/23/22 Diagnosis A.? Small bowel, biopsy:? Small intestinal mucosa within normal limits; negative for celiac disease. B.? Duodenum, nodule:? Chronic active duodenitis. C.? Stomach, antrum, biopsy:? Antral-type mucosa with regenerative changes; otherwise within normal limits; no Helicobacter organisms seen. D.? Stomach, body, biopsy:? Oxyntic mucosa with mild chronic in -reviewed CBC no anemia Assessment & Plan Assessment & Plan (1) Tubular adenoma: Comment: Due for polyp surveillance colonoscopy Code(s): D36.9 - Benign neoplasm, unspecified site (2) Chronic diarrhea: Comment: Inconsistent bowel pattern high-fiber diet, discontinued -Imodium- will try again High-fiber Unfortunately he is having financial issues-not sure where to direct him for further assistance-PCP likely may assist Code(s): K52.9 - Noninfective gastroenteritis and colitis, unspecified Plan: colonoscopy Plan Colonoscopy-Dr. Norton 1/2 dose insulin and no metformin eleazar before procedure No DM meds morning of procedure Medications: New peg-electrolyte soln 420 gram Start at 6:00pm the evening before procedure, drink one 8oz glass every 15 minutes until complete 240 mL PO ONCE 1 day PRN 4,000 mL 0RF laxative effect Refilled loperamide (Imodium A-D) 2 mg PO Q6H PRN 30 tabs 1RF loose stool Patient Instructions: Colonoscopy- Review procedure rare risks need for escort 1/2 dose insulin and no metformin eleazar before procedure No DM meds morning of procedure Reassurance offered encouraged him to follow back with PCP for guidance with social/ financial Encouraged to call with questions or concerns Appreciate the opportunity assist in the care this Gent Coding Level of Care Code Est Pt Level 4 (13092) Diagnoses Tubular adenoma D36.9 Chronic diarrhea K52.9 Time Spent (min) 35
[2023-06-12 14:31] VITALS: BMI 31.4
== END 2023-06-12 15:29 | disposition home or self-care (01) ==
PROVIDERS: PCP Internal Medicine; Visit Provider Physician Assistant
DX: D36.9 Benign neoplasm, unspecified site (principal); K52.9 Noninfective gastroenteritis and colitis, unspecified
CPT/HCPCS: 99214

== ENCOUNTER → 2023-06-12 14:28 | Outpatient (BNVA) | payer MEDICARE, SELFPAY | PROVIDERS: PCP Internal Medicine; Visit Provider Physician Assistant | DX: K52.9 Noninfective gastroenteritis and colitis, unspecified (principal); D36.9 Benign neoplasm, unspecified site | CPT/HCPCS: 99212 ==

== ENCOUNTER 2023-09-05 16:06 | Outpatient (REF) | payer MEDICARE, SELFPAY ==
[2023-09-05 17:20] LABS: Appearance Urine Clear; Color Urine Yellow; Glucose Urine UA Negative (Negative); Leukocyte Esterase Urine Negative (Negative); Nitrite Urine Negative (Negative); PH 6.5 (5.0-9.0); Specific Gravity - Urine 1.015 (1.005-1.025); Urine Blood Negative (Negative); Urine Ketones Negative (Negative); Urine Protein Negative (Neg-Trace)
[2023-09-05 17:29] LABS: Alanine Aminotransferase 13 U/L (0-40); Albumin Level 4.1 g/dL (3.5-5.0); Alkaline Phosphatase 46 U/L (39-117); Anion Gap 14 (12-20); Aspartate Amino Transferase 14 U/L (5-37); Bilirubin Total 1.4 mg/dL (0.0-1.0); Blood Urea Nitrogen 15 mg/dL (9-16); Calcium 9.7 mg/dL (8.4-10.2); Carbon Dioxide 24 mmol/L (22-29); Chloride 103 mmol/L (96-108); Cholesterol 154 mg/dL (<200); Estimated Glomerular Filt Rate > 60; Glucose Fasting 154 mg/dL (60-99); HDL Cholesterol 42 mg/dL (>40); LDL Cholesterol Calculated 93 mg/dL (<100); Potassium 3.8 mmol/L (3.3-5.1); Sodium 137 mmol/L (135-145); Total Protein 7.1 g/dL (6.5-8.0); Triglycerides 99 mg/dL (<150)
[2023-09-05 17:30] LABS: Creatinine Urine 93.41 mg/dL; Microalbum/Creatinine Ratio Ur 20.3 ug/mg cr (<30)
[2023-09-05 17:44] LABS: TSH reflex Free T4 1.27 uIU/mL (0.32-4.0)
[2023-09-05 17:58] LABS: Folate 4.8 ng/mL (> or = 4.0); Vitamin B12 921 pg/mL (200-900)
[2023-09-05 20:37] LABS: MANUAL DIFF FLAG NO
[2023-09-05 20:39] LABS: Basophils Absolute Auto 0.1 X10*3/uL (0.0-0.2); Basophils Percent Auto 1.2 % (0-2); Eosinophils Absolute Auto 0.2 X10*3/uL (0.0-0.4); Eosinophils Percent Auto 2.4 % (0-4); Hematocrit 43.5 % (42.0-52.0); Hemoglobin 15.1 g/dl (14.0-18.0); Imm Gran Abs Auto 0.02 X10*3/uL (0.00-0.03); Imm Gran Pct Auto 0.3 % (0.0-0.4); Lymphocytes Absolute Auto 1.5 X10*3/uL (1.2-4.9); Lymphocytes Percent Auto 20.3 % (20-40); Mean Corpuscular HGB Conc 34.7 g/dl (31.0-36.0); Mean Corpuscular Hemoglobin 30.8 pg (27.0-33.0); Mean Corpuscular Volume 88.8 fL (80.0-98.0); Mean Platelet Volume 11.1 fL (9.4-12.4); Monocytes Absolute Auto 0.5 X10*3/uL (0.1-1.2); Neutrophils Absolute Auto 5.2 x10*3/uL (2.0-8.3); Neutrophils Percent Auto 68.8 % (45-73); Platelet Count 164 X10*3/uL (160-400); White Blood Count 7.6 X10*3/uL (4.8-10.8)
[2023-09-06 07:55] LABS: Estimated Average Glucose 148 mg/dL; Hemoglobin A1c % 6.8 % (<6.0)
== END 2023-09-05 16:07 | disposition home or self-care (01) ==
LOC: HO.LAB 16:06
PROVIDERS: PCP Internal Medicine; Visit Provider Internal Medicine
DX: I10 Essential (primary) hypertension (principal); E78.00 Pure hypercholesterolemia, unspecified; E11.9 Type 2 diabetes mellitus without complications; R30.0 Dysuria; E53.8 Deficiency of other specified B group vitamins; E55.9 Vitamin D deficiency, unspecified
CPT/HCPCS: 36415; 80053; 80061; 81003; 82043; 82306; 82570; 82607; 82746; 83036; 84443; 85025

== ENCOUNTER 2023-09-12 12:55 | Outpatient (AMB) | payer MEDICARE, SELFPAY ==
[2023-09-12 13:01] VITALS: BP 124/78; PULSE 85; RESP 17; O2SAT 95; BMI 31.7
--- NOTE | 2023-09-12 13:01 | A.OFFPC_ITS ---
Vital Signs 09/12/23 13:01 Height 6 ft 2 in Weight 247 lb 2 oz BMI 31.7 BP 124/78 Blood Pressure Location Lt brachial Position Sitting Respiration 17 Pulse 85 Pulse Source Pulse Oximeter Pulse Oximetry (%) 95 Oxygen Delivery Method Room Air Intake Visit Reasons: Annual Exam - due diabetic eye exam Intake Note: Patient is here today for a physical. Pt requesting a stronger medication for B/L cellulitis in lower extremities. Hr Associate Required: No Accompanied by: Self / Same As Patient Allergies No Known Allergies [No Known Allergies*] Allergy (Verified 09/12/23 13:18) Medication List - Last Reconciled 09/12/23 by Mode Wiggins MD [ADULT PULL-UPS As directed] ammonium lactate 12% 1 appl topical DAILY aspirin 81 mg PO DAILY blood sugar diagnostic (FreeStyle Lite Strips) 1 strip miscellaneous TID cholecalciferol (vitamin D3) 25 mcg PO DAILY gabapentin 300 mg PO TID insulin glargine 10 units subcut QPM lancets (FreeStyle Lancets) 1 gauge topical TID loperamide (Imodium A-D) 2 mg PO Q6H PRN lovastatin 40 mg PO DAILY melatonin 1 mg PO BEDTIME PRN metformin 1,000 mg PO BID metoprolol tartrate 25 mg PO BID mirtazapine 30 mg PO BEDTIME peg-electrolyte soln 420 gram 240 mL PO ONCE PRN 1 day semaglutide (Ozempic) 0.25 mg (0.368 mL) subcut QWEEK sertraline 150 mg PO DAILY topiramate 25 mg PO BID vitamin B complex 1 cap PO DAILY white petrolatum-mineral oil 1 ea topical DAILY Tobacco use date assessed: 04/15/23 Fall risk assessment: No Falls in past year Last assessed Fall Risk: 09/12/23 Dental Screening Dental Screen Date: 09/12/23 Did you have a dental visit in the last 12 months?: No Did you have a dental problem in the last 6 months where you did not have access to dental care?: No Was dental information given to patient?: No (Dentures) HPI Annual Exam - due diabetic eye exam HPI Details Patient comes in today for his annual physical examination States that He denies any headaches or dizziness Denies any chest pains, no SOB No nausea/vomiting, no abdominal pain No change in bowel habots noted - still has frequent/recurrent diarrhea (loose stools) He denies any acute urinary symptoms He currently still has (+) erythema over both of his legs - due to some dermatitis States that the medication that his doctor at the [place] has him on is not working too well and he has mentioned this to her but he was reportedly told to stay on the medication for now Would like to request for a different Rx but states that it has to come from [place] for [facility] to cover [facility] [place] and he does not have the money to get the medication if we prescribe it for him so he has no choice but to continue on his current Rx for now Had his follow up labs done last week - to discuss his results He had his screening colonoscopy last done with Dr. Pritchett on 02/21/2017 and will be due for repeat colonoscopy in 10 years (2026) [facility] Medical History Type 2 diabetes mellitus with microalbuminuria Benign paroxysmal vertigo Obesity due to excess calories Keratotic lesion Irritable bowel Obesity (BMI 30-39.9) Smoker Depression Posttraumatic stress disorder Insomnia Postprandial diarrhea Vitamin B12 deficiency Vitamin D deficiency Nonintractable headache Degenerative disc disease, cervical Neuropathy Lumbar degenerative disc disease Benign essential hypertension Pure hypercholesterolemia Diabetes mellitus HTN (hypertension) Diabetes Chronic diarrhea Surgical History (Updated 09/12/23 @ 13:25 by Mode Wiggins MD) History of colonoscopy History of esophagogastroduodenoscopy (EGD) History of lumbar surgery History of surgery History of cervical spinal surgery History of laparoscopic cholecystectomy Family History Father Diabetes CVD (cardiovascular disease) Mother Stroke Social History Household Members: Children Household Members Other:: lives with his son Housing: Apartment Alcohol intake: current Alcohol intake frequency: holidays/special occasions only Patient Tobacco Use Status: Current everyday Tobacco user Tobacco use type: Cigar Cigarettes Per Day: 0.5 Second Hand Smoke Exposure: Yes service: Yes Current occupational status: retired Cognitive needs: No Hearing needs: No Vision needs: Yes (reading glasses) Questionnaire Thrive Questionnaire Date Thrive assessed: 04/15/23 SHERYL-7 AMB Questionnaire SHERYL-7 Date SHERYL - 7 assessed: 04/15/23 Source: Developed by Drs. Thom Ferrera, Aster Piedra, Vinnie Lizarraga and colleagues, with an educational gladys from [employer]. Review of Systems Const Denies chills, Reports difficulty sleeping, Reports fatigue, Denies fever(s) and Denies headache(s) Eyes Denies blurry vision, Denies change in vision, Denies irritation and Denies itchy eyes ENT Denies dysphagia, Denies dizziness, Denies otalgia, Denies headache(s), Denies odynophagia, Reports tinnitus (on and off) and Denies sore throat Card Denies chest pain, Denies palpitations and Denies dyspnea Resp Denies cough, Denies dyspnea and Denies wheezing GI Denies abdominal pain, Denies constipation, Denies dysphagia, Denies heartburn, Reports fecal incontinence, Reports diarrhea (frequent/recurrent), Reports loose stools, Denies nausea, Denies odynophagia and Denies vomiting Denies dysuria, Reports nocturia, Reports urinary frequency and Reports urinary incontinence Musc Reports abnormal gait (unsteady), Reports back pain and Reports arthralgias Skin/Breast Denies change in pigmentation, Denies lesions, Reports rash (over both lower legs) and Denies unusual bruising Neuro Reports abnormal gait (unsteady), Denies dizziness and Denies headache(s) Endo Reports fatigue and Denies palpitations Kuldeep/Lymph Details: frequent swelling of both legs Aller/Immun Denies itchy eyes and Denies wheezing Physical exam (Primary Care) Vital Signs: Last Vital Signs Pulse 85 09/12/23 13:01 Resp 17 09/12/23 13:01 BP 124/78 09/12/23 13:01 Pulse Ox 95 09/12/23 13:01 Oxygen Delivery Method Room Air 09/12/23 13:01 BMI result Body Mass Index 31.7 Tobacco/Smoking Status: Tobacco use Status Tobacco use date assessed 04/15/23 09/12/23 13:03 Patient Tobacco Use Status Current everyday Tobacco 09/12/23 13:03 Tobacco use type Cigar 09/12/23 13:03 Thrive Assessment: Date of Thrive Assessment Date Thrive assessed 04/15/23 09/12/23 13:03 Const General: no acute distress and alert Orientation/consciousness: patient oriented x3 HENMT Head: Yes normocephalic and Yes atraumatic Ears: TM's normal bilaterally and EAC's normal General nose exam: No nasal discharge present Face and sinus: Yes normal facial exam and Yes sinuses nontender Teeth and gingiva: dentition normal Throat: Yes posterior oropharynx normal and Yes tonsils normal (no TP congestion noted) Eyes Eyelids: Yes eyelids normal Conjunctivae: conjunctivae normal Pupils: Equal, round and reactive pupils present EOM: EOMs intact bilaterally Neck Neck: Yes no lymphadenopathy and Yes supple Thyroid: Thyroid normal Resp Auscultation: clear to auscultation bilaterally, no rales and no wheezes Cardio Rate: regular rate Rhythm: regular rhythm Heart sounds: no murmurs GI Palpation (GI): Soft to palpation, nontender, no guarding and No hepatosplenomegaly present Auscultation: normal bowel sounds General: Yes no CVA tenderness Back/Spine/Pelvis Back: no CVA tenderness Thoracic/Lumbar Spine: lumbar spinal tenderness Skin Other: (+) erythema of both lower legs, with (+) dry, scaling skin noted on both legs, worse on the right leg Neuro General: patient oriented x3 and no focal motor deficits Cranial nerves: Yes Equal, round and reactive pupils present Cognition (Neuro): normal cognition Gait exam (Neuro): Normal gait present Extrem Other: (+) edema noted over both lower legs and feet General: No clubbing, No cyanosis, Yes edema (2+ bipedal edema) and Yes pedal edema Results Reviewed Results Reviewed: Laboratory Tests 09/05/23 Unknown WBC 7.6 Hgb 15.1 Hct 43.5 Plt Count 164 Sodium 137 Potassium 3.8 Creatinine 0.70 Estimated GFR > 60 Fasting Glucose 154 H Hemoglobin A1c % 6.8 H Calcium 9.7 AST 14 ALT 13 Triglycerides 99 Cholesterol 154 LDL Cholesterol, Calc 93 HDL Cholesterol 42 Vitamin B12 921 H 25-OH Vitamin D Total 37.0 TSH 1.27 Ur Specific [place] 1.015 Urine Protein Negative Urine Glucose (UA) Negative Urine Blood Negative Microalb/Creat Ratio 20.3 Assessment and Plan Assessment & Plan (1) Annual physical exam: Code(s): Z00.00 - Encounter for general adult medical examination without abnormal findings Plan: Results of his labs done last week reviewed and discussed with patient He is up-to-date with his colon cancer screening - is not due for repeat until 2026 (2) Type 2 diabetes mellitus with microalbuminuria: Code(s): E11.29 - Type 2 diabetes mellitus with other diabetic kidney complication; R80.9 - Proteinuria, unspecified Qualifiers: Diabetes mellitus intermediate insulin use: with intermediate use Qualified Code(s): E11.29 - Type 2 diabetes mellitus with other diabetic kidney complication; R80.9 - Proteinuria, unspecified; Z79.4 - shelter (current) use of insulin Plan: HgbA1c was at 6.8% on his labs done last week (was at 8.2% a few months ago) - goal is at least < 8.0% or 7.5% He brought in copy of his lab results from the [place], which showed a HgbA1c of 6.2% back in June 2023 Reinforced diabetic diet Continue Metformin 1000 mg BID and NovoLog mix 70/30 28 units twice a day; Glimepiride was discontinued by endocrinology a few months ago Patient has been prescribed and started on Ozempic 0.25 mg Q week and he now also has a CGM to monitor his blood sugar regularly Follow up with endocrinology (at the [place]) as scheduled States that his is scheduled to be seen by the eye doctor at the [facility] sometime early next year for his eye exam (3) Pure hypercholesterolemia: Code(s): E78.00 - Pure hypercholesterolemia, unspecified Plan: Results of his labs done last week reviewed and discussed with patient Reinforced low cholesterol diet Continue Lovastatin 40 mg QD Will recheck his labs and fasting lipids in 4 months for follow up (4) Benign essential hypertension: Code(s): I10 - Essential (primary) hypertension Plan: Reinforced low sodium diet - goal is systolic BP of at least 130 mm or less Continue Metoprolol 25 mg BID Per request, will refer [place] [facility] - patient used to see Dr. Manrique and would like to see cardiology again as he has not seen one since Dr. Manrique retired a few years ago (5) Frequent diarrhea: Code(s): R19.7 - Diarrhea, unspecified Plan: Possibly due to IBS; patient is also S/P cholecystectomy so some of his symptoms may be due to postcholecystectomy diarrhea Had EGD done on 08/23/22 - EGD revealed diffuse erythema with a nodular appearing mucosa in the gastric body. There are a few chronic appearing erosions in the pre-pyloric area as well as patchy erythema in the duodenal bulb with also a 10 mm benign-appearing nodule in the apex of the bulb. Biopsies were obtained from the gastric antrum and body as well as from the duodenal bulb - biopsies came back mostly benign are negative for H pylori and celiac disease and showed only changes of chronic active duodenitis Patient's colonoscopy had to be rescheduled because he did not take the prep prior to the procedure; this has yet to be scheduled and he is advised to reach out to GI to get this done NAE Follow-up with GI as scheduled (6) Lymphedema: Code(s): I89.0 - Lymphedema, not elsewhere classified Plan: Chronic, involving both lower extremities Patient is instructed to continue keeping his legs elevated as often as he can to help minimize his swelling Will consider referral to vascular surgery for further evaluation and management if his symptoms persist - states that [facility] actually thinking about referring him to vascular surgery but for the [facility] to [facility] visit, the referral has to come from them (7) Gait instability: Code(s): R26.81 - Unsteadiness on feet Plan: Most likely multifactorial and is most likely contributed to by his lumbar spine spine degenerative disc disease as well as neuropathy Was referred to and seen by Neurology recently, who recommended physical therapy but he declined States that he has been to physical therapy in the past with only temporary minimal improvement of his gait issues and he recalls that he had to pay a co- pay every time he goes to them Is advised to consider it again and perhaps they can also do home physical therapy instead; also advised to speak to his [facility] doctor about this and maybe they can offer him some services that are covered by the [facility] system (8) Frequent falls: Comment: multifactorial - cervical spondylosis, lumbar DJD, Neuropathy Code(s): R29.6 - Repeated falls Plan: Most likely related primarily to his gait instability and states that he now has to walk with a walking stick Offered to provide patient with a prescription for a cane but he declined - states that he is more used to walking with a walking stick (9) Lumbar degenerative disc disease: Code(s): M51.36 - Other intervertebral disc degeneration, lumbar region Plan: Reinforced activity and weight-lifting restrictions Continue Gabapentin 300 mg TID and Cyclobenzaprine 10 mg TID PRN (10) Neuropathy: Code(s): G62.9 - Polyneuropathy, unspecified Plan: Was on Amitriptyline in the past to help with his leg pain and symptoms but this was stopped by psychiatry when he was started on Mirtazapine at bedtime for his depression and PTSD Patient states that he will consider going back on his Amitriptyline if his leg and feet pain gets significantly worse again (11) Degenerative disc disease, cervical: Code(s): M50.30 - Other cervical disc degeneration, unspecified cervical region Plan: S/P cervical spine surgery on 12/05/[address] Faye with improvement of symptoms Follow up with neurosurgery as scheduled or as needed (12) Nonintractable headache: Code(s): R51.9 - Headache, unspecified Qualifiers: Headache type: unspecified Headache chronicity pattern: unspecified pattern Qualified Code(s): R51.9 - Headache, unspecified Plan: CT head done last year came out negative Continue Topiramate 50 mg BID for headache prophylaxis - has been doing well on Rx for the past few months (13) Vitamin B12 deficiency: Code(s): E53.8 - Deficiency of other specified B group vitamins Plan: Continue Vitamin B12 1000 mcg QD (14) Vitamin D deficiency: Code(s): E55.9 - Vitamin D deficiency, unspecified Plan: Continue Vitamin D3 2000 units QD (15) Insomnia: Code(s): G47.00 - Insomnia, unspecified Qualifiers: Insomnia type: unspecified Qualified Code(s): G47.00 - Insomnia, unspecified Plan: Sleep hygiene reinforced Was on Zaleplon 10 mg Q HS PRN previously but is currently only on Melatonin 1 mg Q HS and seems to be doing okay on this Mirtazapine also helps with his sleep at night (16) Posttraumatic stress disorder: Code(s): F43.10 - Post-traumatic stress disorder, unspecified Plan: Continue Sertraline 100 mg 1.5 tablets daily and Mirtazapine 30 mg QD Follow up with psychiatry as scheduled (17) Depression: Code(s): F32.9 - Major depressive disorder, single episode, unspecified Qualifiers: Depression Type: unspecified Qualified Code(s): F32.9 - Major depressive disorder, single episode, unspecified Plan: Continue Mirtazapine 30 mg QD and Sertraline 100 mg 1.5 tablets QD (18) Smoker: Code(s): F17.200 - Nicotine dependence, unspecified, uncomplicated Plan: Counseled again on smoking cessation (19) Obesity (BMI 30-39.9): Code(s): E66.9 - Obesity, unspecified Plan: Reinforced diet/exercise as tolerated/lose weight Plan Follow up in 4 months Orders: Orders Comprehensive [place]. Panel Fast 4 Months E78.00 - Pure hypercholesterolemia, unspecified Lipid Panel 4 Months E78.00 - Pure hypercholesterolemia, unspecified Hemoglobin A1c 4 Months E11.9 - Type 2 diabetes mellitus without complications Microalbumin, Random (w Creat) 4 Months E11.9 - Type 2 diabetes mellitus without complications Vitamin D 25-OH Total 4 Months E55.9 - Vitamin D deficiency, unspecified TSH reflex Free T4 4 Months E78.00 - Pure hypercholesterolemia, unspecified Complete Blood Count Auto Diff 4 Months I10 - Essential (primary) hypertension UA CC w/rflx Micro + Cult 4 Months R30.0 - Dysuria Vitamin B12 and Folate 4 Months E53.8 - Deficiency of other specified B group vitamins Referrals Cardiology Referral E11.9 - Type 2 diabetes mellitus without complications, E78.00 - Pure hypercholesterolemia, unspecified, I10 - Essential (primary) hypertension Coding Level of Care Code Est Pt Prev Care >65y([id number]) Diagnoses Annual physical exam Z00.00 Type 2 diabetes mellitus with microalbuminuria, with long-term current use of insulin E11.29; R80.9; Z79.4 Diabetes mellitus grants specialist insulin use: with intermediate use Pure hypercholesterolemia E78.00 Benign essential hypertension I10 Frequent diarrhea R19.7 Lymphedema I89.0 Gait instability R26.81 Frequent falls R29.6 Lumbar degenerative disc disease M51.36 Neuropathy G62.9 Degenerative disc disease, cervical M50.30 Nonintractable headache, unspecified chronicity pattern, unspecified headache type R51.9 Headache type: unspecified Headache chronicity pattern: unspecified pattern Vitamin B12 deficiency E53.8 Vitamin D deficiency E55.9 Insomnia, unspecified type G47.00 Insomnia type: unspecified Posttraumatic stress disorder F43.10 Depression, unspecified depression type F32.9 Depression Type: unspecified Smoker F17.200 Obesity (BMI 30-39.9) E66.9
== END 2023-09-12 13:46 | disposition home or self-care (01) ==
PROVIDERS: Visit Provider Internal Medicine
DX: Z00.00 Encounter for general adult medical examination without abnormal findings (principal); E11.29 Type 2 diabetes mellitus with other diabetic kidney complication; Z79.4 Long term (current) use of insulin; E66.9 Obesity, unspecified; R80.9 Proteinuria, unspecified; E78.00 Pure hypercholesterolemia, unspecified; I10 Essential (primary) hypertension; I89.0 Lymphedema, not elsewhere classified; Z68.31 Body mass index [BMI] 31.0-31.9, adult; R26.81 Unsteadiness on feet; R29.6 Repeated falls; M51.36 Other intervertebral disc degeneration, lumbar region
CPT/HCPCS: 99397

== ENCOUNTER 2023-11-14 15:39 | Outpatient (AMB) | payer MEDICARE, SELFPAY ==
[2023-11-14 15:48] VITALS: BP 124/70; PULSE 80; O2SAT 98; BMI 31.7
--- NOTE | 2023-11-14 15:48 | A.OFFPC_ITS ---
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 Accompanied by: Self / Same As Patient Allergies No Known Allergies [No Known Allergies*] Allergy (Verified 11/14/23 16:16) Medication List - Last Reconciled 11/14/23 by Mode Wiggins MD [ADULT PULL-UPS As directed] ammonium lactate 12% 1 appl topical DAILY aspirin 81 mg PO DAILY blood sugar diagnostic (FreeStyle Lite Strips) 1 strip miscellaneous TID cholecalciferol (vitamin D3) 25 mcg PO DAILY gabapentin 300 mg PO TID insulin glargine 10 units subcut QPM lancets (FreeStyle Lancets) 1 gauge topical TID loperamide (Imodium A-D) 2 mg PO Q6H PRN lovastatin 40 mg PO DAILY melatonin 1 mg PO BEDTIME PRN metformin 1,000 mg PO BID metoprolol tartrate 25 mg PO BID mirtazapine 30 mg PO BEDTIME peg-electrolyte soln 420 gram 240 mL PO ONCE PRN 1 day semaglutide (Ozempic) 0.25 mg (0.368 mL) subcut QWEEK sertraline 150 mg PO DAILY topiramate 25 mg PO BID vitamin B complex 1 cap PO DAILY white petrolatum-mineral oil 1 ea topical DAILY Tobacco use date assessed: 04/15/23 Fall risk assessment: 2 + Falls in past year Last assessed Fall Risk: 11/14/23 Dental Screening Dental Screen Date: 11/14/23 Did you have a dental visit in the last 12 months?: No Did you have a dental problem in the last 6 months where you did not have access to dental care?: No Was dental information given to patient?: No (no teeth) HPI infection in left leg HPI Details Patient comes in today complaining of his left leg infection flaring up again lately He was just treated by his doctor at the [facility] with oral Bactrim DS x 10 days - Rx was filled on 10/17/23 and he completed his Abx over the next 10 days States that the redness and swelling over his left lower leg improved while he was on the Abx but started flaring up again a few days ago He is also currently being seen by [facility] for his low back pain and joint pains and has a follow up appt with them again next month on 12/05/2023 He denies any fever, headache or dizziness Denies any chest pains, no increased shortness of breath No nausea/ vomiting, no abdominal pain No change in bowel habits noted PFSH Medical History Type 2 diabetes mellitus with microalbuminuria Benign paroxysmal vertigo Obesity due to excess calories Keratotic lesion Irritable bowel Obesity (BMI 30-39.9) Smoker Depression Posttraumatic stress disorder Insomnia Postprandial diarrhea Vitamin B12 deficiency Vitamin D deficiency Nonintractable headache Degenerative disc disease, cervical Neuropathy Lumbar degenerative disc disease Benign essential hypertension Pure hypercholesterolemia Diabetes mellitus HTN (hypertension) Diabetes Chronic diarrhea Surgical History History of colonoscopy History of esophagogastroduodenoscopy (EGD) History of lumbar surgery History of surgery History of cervical spinal surgery History of laparoscopic cholecystectomy Family History Father Diabetes CVD (cardiovascular disease) Mother Stroke Social History Household Members: Children Household Members Other:: lives with his son Housing: Apartment Alcohol intake: current Alcohol intake frequency: holidays/special occasions only Patient Tobacco Use Status: Current everyday Tobacco user Tobacco use type: Cigar Cigarettes Per Day: 0.5 e-Cigarette/Vaping Use: Never Used Second Hand Smoke Exposure: Yes service: Yes Current occupational status: retired Cognitive needs: No Hearing needs: No Vision needs: Yes (reading glasses) Questionnaire Thrive Questionnaire Date Thrive assessed: 04/15/23 SHERYL-7 AMB Questionnaire SHERYL-7 Date SHERYL - 7 assessed: 04/15/23 Source: Developed by Drs. Thom Ferrera, Aster Piedra, Vinnie Lizarraga and colleagues, with an educational gladys from [employer] Review of Systems Const Reports difficulty sleeping, Reports fatigue, Denies fever(s) and Denies headache(s) ENT Denies dysphagia, Denies dizziness, Denies headache(s), Denies odynophagia, Reports tinnitus (on and off) and Denies sore throat Card Denies chest pain, Denies palpitations and Denies dyspnea Resp Denies cough, Denies dyspnea and Denies wheezing GI Denies abdominal pain, Denies constipation, Denies dysphagia, Denies heartburn, Reports fecal incontinence, Reports diarrhea (frequent/recurrent), Reports loose stools, Denies nausea, Denies odynophagia and Denies vomiting Denies dysuria, Reports nocturia, Reports urinary frequency and Reports urinary incontinence Musc Reports abnormal gait (unsteady), Reports back pain and Reports arthralgias Skin/Breast Denies change in pigmentation, Denies lesions, Reports rash (over both lower legs) and Denies unusual bruising Neuro Reports abnormal gait (unsteady), Denies dizziness and Denies headache(s) Endo Reports fatigue and Denies palpitations Kuldeep/Lymph Details: frequent swelling of both legs Aller/Immun Denies wheezing Physical exam (Primary Care) Vital Signs: Last Vital Signs Pulse 80 11/14/23 15:48 BP 124/70 11/14/23 15:48 Pulse Ox 98 11/14/23 15:48 Oxygen Delivery Method Room Air 11/14/23 15:48 BMI result Body Mass Index 31.7 Tobacco/Smoking Status: Tobacco use Status Tobacco use date assessed 04/15/23 11/14/23 15:55 Patient Tobacco Use Status Current everyday Tobacco 11/14/23 15:55 Tobacco use type Cigar 11/14/23 15:55 e-Cigarette/Vaping Use Never Used 11/14/23 15:55 Thrive Assessment: Date of Thrive Assessment Date Thrive assessed 04/15/23 11/14/23 15:55 Const General: no acute distress and alert [facility] Throat: Yes posterior oropharynx normal and Yes tonsils normal (no TP congestion noted) Neck Neck: Yes no lymphadenopathy and Yes supple Thyroid: Thyroid normal Resp Auscultation: clear to auscultation bilaterally, no rales and no wheezes Cardio Rate: regular rate Rhythm: regular rhythm Heart sounds: no murmurs GI Palpation (GI): Soft to palpation and nontender Auscultation: normal bowel sounds Back/Spine/Pelvis Thoracic/Lumbar Spine: lumbar spinal tenderness Skin Other: (+) erythema over the anterior aspect of both lower legs, with (+) dry, scaling skin noted on both legs, worse on the left leg Extrem Other: (+) edema noted over both lower legs and feet General: Yes full ROM, No cyanosis and Yes edema (2+ bipedal edema) Assessment and Plan Assessment & Plan (1) Cellulitis of left lower leg: Code(s): L03.116 - Cellulitis of left lower limb Plan: S/P Tx with oral Bactrim DS BID x 10 days earlier this month Will start patient on Doxycycline 100 mg BID x 10 days He is reminded to continue to keep his left leg elevated as often as possible Plan Follow up as scheduled in December 2023 Medications: New doxycycline monohydrate 100 mg PO BID 10 days 20 caps 0RF Coding Level of Care Code Est Pt Level 3 (84437) Diagnoses Cellulitis of left lower leg L03.116
== END 2023-11-14 16:26 | disposition home or self-care (01) ==
PROVIDERS: PCP Internal Medicine; Visit Provider Internal Medicine
DX: L03.116 Cellulitis of left lower limb (principal)
CPT/HCPCS: 99213

== ENCOUNTER 2024-01-09 13:38 | Outpatient (REF) | payer MEDICARE, SELFPAY ==
[2024-01-09 13:57] LABS: MANUAL DIFF FLAG NO
[2024-01-09 14:17] LABS: Basophils Absolute Auto 0.1 X10*3/uL (0.0-0.2); Basophils Percent Auto 0.6 % (0-2); Eosinophils Absolute Auto 0.2 X10*3/uL (0.0-0.4); Eosinophils Percent Auto 2.5 % (0-4); Hematocrit 43.5 % (42.0-52.0); Hemoglobin 14.9 g/dl (14.0-18.0); Imm Gran Abs Auto 0.03 X10*3/uL (0.00-0.03); Imm Gran Pct Auto 0.4 % (0.0-0.4); Lymphocytes Absolute Auto 1.8 X10*3/uL (1.2-4.9); Mean Corpuscular HGB Conc 34.3 g/dl (31.0-36.0); Mean Corpuscular Hemoglobin 30.2 pg (27.0-33.0); Mean Corpuscular Volume 88.2 fL (80.0-98.0); Mean Platelet Volume 10.4 fL (9.4-12.4); Monocytes Absolute Auto 0.7 X10*3/uL (0.1-1.2); Neutrophils Absolute Auto 5.8 x10*3/uL (2.0-8.3); Neutrophils Percent Auto 67.5 % (45-73); Platelet Count 185 X10*3/uL (160-400); Red Blood Count 4.93 X10*6/uL (4.60-5.80); Red Cell Distribution Width 14.6 % (11.0-16.0); White Blood Count 8.5 X10*3/uL (4.8-10.8)
[2024-01-09 14:24] LABS: Appearance Urine Cloudy; Color Urine Yellow; Glucose Urine UA Negative (Negative); Leukocyte Esterase Urine Small (1+) (Negative); Nitrite Urine Negative (Negative); PH 5.5 (5.0-9.0); Specific Gravity - Urine 1.015 (1.005-1.025); UMIC TRIGGER UACC YES; Urine Blood Negative (Negative); Urine Ketones Negative (Negative); Urine Protein Negative (Neg-Trace)
[2024-01-09 14:27] LABS: Estimated Average Glucose 160 mg/dL; Hemoglobin A1c % 7.2 % (<6.0)
[2024-01-09 14:44] LABS: Bacteria Urine None Seen (None Seen); Calcium Oxalate Crystals Urine Present; Hyaline Casts Urine 0-2 /LPF (0-2); RBC Urine 0-2 /HPF (0-2); Squamous Epithelial Cell Urine 0-2 /HPF (0-2); UACC Culture Trigger YES; WBC Urine 0-5 /HPF (0-5)
[2024-01-09 14:50] LABS: Alanine Aminotransferase 15 U/L (0-40); Albumin Level 4.1 g/dL (3.5-5.0); Alkaline Phosphatase 46 U/L (39-117); Anion Gap 15 (12-20); Aspartate Amino Transferase 18 U/L (5-37); Bilirubin Total 1.3 mg/dL (0.0-1.0); Blood Urea Nitrogen 17 mg/dL (9-16); Calcium 9.4 mg/dL (8.4-10.2); Carbon Dioxide 22 mmol/L (22-29); Chloride 109 mmol/L (96-108); Cholesterol 153 mg/dL (<200); Estimated Glomerular Filt Rate > 60; Glucose Fasting 173 mg/dL (60-99); HDL Cholesterol 46 mg/dL (>40); LDL Cholesterol Calculated 86 mg/dL (<100); Potassium 3.8 mmol/L (3.3-5.1); Sodium 142 mmol/L (135-145); Total Protein 7.3 g/dL (6.5-8.0); Triglycerides 106 mg/dL (<150)
[2024-01-09 15:00] LABS: Creatinine Urine 122.71 mg/dL; Microalbum/Creatinine Ratio Ur 25.2 ug/mg cr (<30)
[2024-01-09 15:07] LABS: TSH reflex Free T4 1.22 uIU/mL (0.32-4.0); Vitamin D 25-OH Total 36.4 ng/mL (>30)
[2024-01-09 15:17] LABS: Folate 15.2 ng/mL (> or = 4.0); Vitamin B12 > 2000 pg/mL (200-900)
== END 2024-01-09 13:39 | disposition home or self-care (01) ==
LOC: HO.LAB 13:38
PROVIDERS: PCP Internal Medicine; Visit Provider Internal Medicine
DX: E78.00 Pure hypercholesterolemia, unspecified (principal); E11.9 Type 2 diabetes mellitus without complications; E55.9 Vitamin D deficiency, unspecified; E53.8 Deficiency of other specified B group vitamins; I10 Essential (primary) hypertension; R82.90 Unspecified abnormal findings in urine
CPT/HCPCS: 36415; 80053; 80061; 81001; 82043; 82306; 82570; 82607; 82746; 83036; 84443; 85025; 87086

== ENCOUNTER 2024-01-13 14:41 | Outpatient (AMB) | payer MEDICARE, SELFPAY ==
[2024-01-13 14:44] VITALS: BP 124/68; PULSE 90; O2SAT 96; BMI 31.6
--- NOTE | 2024-01-13 14:44 | A.OFFPC_ITS ---
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 Accompanied by: Self / Same As Patient Allergies No Known Allergies [No Known Allergies*] Allergy (Verified 01/13/24 15:35) Medication List - Last Reconciled 01/13/24 by Mode Wiggins MD [ADULT PULL-UPS As directed] ammonium lactate 12% 1 appl topical DAILY aspirin 81 mg PO DAILY blood sugar diagnostic (FreeStyle Lite Strips) 1 strip miscellaneous TID cholecalciferol (vitamin D3) 25 mcg PO DAILY gabapentin 300 mg PO TID insulin glargine 10 units subcut QPM lancets (FreeStyle Lancets) 1 gauge topical TID loperamide (Imodium A-D) 2 mg PO Q6H PRN lovastatin 40 mg PO DAILY melatonin 1 mg PO BEDTIME PRN metformin 1,000 mg PO BID metoprolol tartrate 25 mg PO BID mirtazapine 30 mg PO BEDTIME peg-electrolyte soln 420 gram 240 mL PO ONCE PRN 1 day semaglutide (Ozempic) 0.25 mg (0.368 mL) subcut QWEEK sertraline 150 mg PO DAILY topiramate 25 mg PO BID vitamin B complex 1 cap PO DAILY white petrolatum-mineral oil 1 ea topical DAILY Tobacco use date assessed: 01/13/24 Fall risk assessment: 1 Fall in past year Last assessed Fall Risk: 01/13/24 Dental Screening Dental Screen Date: 01/13/24 Did you have a dental visit in the last 12 months?: Yes Did you have a dental problem in the last 6 months where you did not have access to dental care?: No Was dental information given to patient?: Patient has dentist HPI hyperlipidemia, DM, HTN, neuropathy, PTSD HPI Details Patient comes in today for his follow up visit States that he feels okay Has been experiencing increased pain in his left knee lately but states that he has been seeing a [facility] for [facility] and he has been receiving cortisone injections into his knee when needed - states that the [facility] is taking care of this and covering all the expenses related to his knee He denies any headaches or dizziness Denies any chest pains, no SOB No nausea/vomiting, no abdominal pain No change in bowel habits noted Had his follow up labs done a few days ago - to discuss his results [facility] Medical History Type 2 diabetes mellitus with microalbuminuria Benign paroxysmal vertigo Obesity due to excess calories Keratotic lesion Irritable bowel Obesity (BMI 30-39.9) Smoker Depression Posttraumatic stress disorder Insomnia Postprandial diarrhea Vitamin B12 deficiency Vitamin D deficiency Nonintractable headache Degenerative disc disease, cervical Neuropathy Lumbar degenerative disc disease Benign essential hypertension Pure hypercholesterolemia Diabetes mellitus HTN (hypertension) Diabetes Chronic diarrhea Surgical History History of colonoscopy History of esophagogastroduodenoscopy (EGD) History of lumbar surgery History of surgery History of cervical spinal surgery History of laparoscopic cholecystectomy Family History Father Diabetes CVD (cardiovascular disease) Mother Stroke Social History Household Members: Children Household Members Other:: lives with his son Housing: Apartment Alcohol intake: current Alcohol intake frequency: holidays/special occasions only Patient Tobacco Use Status: Current everyday Tobacco user Tobacco use type: Cigar Cigarettes Per Day: 0.5 e-Cigarette/Vaping Use: Never Used Second Hand Smoke Exposure: Yes service: Yes Current occupational status: retired Cognitive needs: No Hearing needs: No Vision needs: Yes (reading glasses) Questionnaire PHQ-9 Over the last 2 weeks, how often have you been bothered by any of the following problems? 1. Little interest or pleasure in doing things: not at all 2. Feeling down, depressed, or hopeless: not at all 3. Trouble falling or staying asleep, or sleeping too much: not at all 4. Feeling tired or having little energy: not at all 5. Poor appetite or overeating: not at all 6. Feeling bad about yourself - or that you are a failure or have let yourself or your family down: not at all 7. Trouble concentrating on things, such as reading the newspaper or watching television: not at all 8. Moving or speaking so slowly that other people could have noticed. Or the opposite - being so fidgety or restless that you have been moving around a lot more than usual: not at all 9. Thoughts that you would be better off or of hurting yourself in some way: not at all Total score: 0 Depression Screening Interpretation: Positive Depression Screening Follow-up: Existing condition and In treatment Depression Screening Done: Yes 07508 - PHQ-9 Billing: Yes Source: Developed by Drs. Thom Ferrera, Aster Piedra, Vinnie Lizarraga and colleagues, with an educational gladys from [employer]. Thrive Questionnaire Date Thrive assessed: 01/13/24 I am a: Patient What is your living situation today?: I have a steady place to live Within the past 12 months, did the food you bought not last and you didn't have the money to get more?: Never true Within the past 12 months, did you worry whether your food would run out before you got money to buy more?: Never true Do you have trouble paying for medicines?: No Do you have trouble getting transportation to medical appointments?: No Do you have trouble paying your heating and electricity bill?: No Do you have trouble taking care of your child, family member or friend?: No Do you have trouble with day-to-day activities such as bathing, preparing meals, shopping, managing finances, etc.?: No Are you currently unemployed and looking for a job?: No Are you interested in more education?: No Please select the resources that you would like help with: None Currently or been in a relationship where the following occur: no concerns reported THRIVE Score: 0 AUDIT C Alcohol Use Questionnaire (AUDIT-C) 1. How often do you have a drink containing alcohol?: Monthly or less 2. How many drinks containing alcohol do you have on a typical day when you are drinking?: 1 or 2 3. How often do you have six or more drinks on one occasion?: Never Total Score: 1 Score Reviewed/Action Taken: Yes SHERYL-7 AMB Questionnaire SHERYL-7 Date SHERYL - 7 assessed: 01/13/24 Feeling nervous, anxious, or on edge: 0 = Not at all Not being able to stop or control worryin = Not at all Worrying too much about different things: 0 = Not at all Trouble relaxin = Not at all Being so restless that it is hard to sit still: 0 = Not at all Becoming easily annoyed or irritable: 0 = Not at all Feeling afraid as if something awful might happen: 0 = Not at all Total SHERYL-7 score (0-4 normal; 5-9 mild; 10-14 moderate; 15-21 severe): 0 Source: Developed by Drs. Thom Ferrera, Aster Piedra, Vinnie Lizarraga and colleagues, with an educational gladys from [employer]. Review of Systems Const Reports difficulty sleeping, Reports fatigue, Denies fever(s) and Denies headache(s) ENT Denies dysphagia, Denies dizziness, Denies otalgia, Denies headache(s), Denies odynophagia, Reports tinnitus (on and off) and Denies sore throat Card Denies chest pain, Denies palpitations and Denies dyspnea Resp Denies cough, Denies dyspnea and Denies wheezing GI Denies abdominal pain, Denies constipation, Denies dysphagia, Denies heartburn, Reports fecal incontinence, Reports diarrhea (frequent/recurrent), Reports loose stools, Denies nausea, Denies odynophagia and Denies vomiting Denies dysuria, Reports nocturia, Reports urinary frequency and Reports urinary incontinence Musc Reports abnormal gait (unsteady), Reports back pain and Reports arthralgias (including over his left knee lately) Skin/Breast Denies change in pigmentation, Denies lesions, Reports rash (over both lower legs) and Denies unusual bruising Neuro Reports abnormal gait (unsteady), Denies dizziness and Denies headache(s) Endo Reports fatigue and Denies palpitations Kuldeep/Lymph Details: frequent swelling of both legs Aller/Immun Denies wheezing Physical exam (Primary Care) Vital Signs: Last Vital Signs Pulse 90 01/13/24 14:44 BP 124/68 01/13/24 14:44 Pulse Ox 96 01/13/24 14:44 Oxygen Delivery Method Room Air 01/13/24 14:44 BMI result Body Mass Index 31.6 Tobacco/Smoking Status: Tobacco use Status Tobacco use date assessed 01/13/24 01/13/24 14:45 Patient Tobacco Use Status Current everyday Tobacco 01/13/24 14:45 Tobacco use type Cigar 01/13/24 14:45 e-Cigarette/Vaping Use Never Used 01/13/24 14:45 PHQ-9: PHQ-9 Score PHQ-9: Total score 0 01/13/24 15:00 Depression Screening Interpretation: Positive Depression Screening Follow-up: Existing condition and In treatment Thrive Assessment: Date of Thrive Assessment Date Thrive assessed 01/13/24 01/13/24 14:45 Currently or been in a relationship where the following occur: no concerns reported Const General: no acute distress and alert HENMT Throat: Yes posterior oropharynx normal and Yes tonsils normal (no TP congestion noted) Neck Neck: Yes no lymphadenopathy and Yes supple Thyroid: Thyroid normal Resp Auscultation: clear to auscultation bilaterally, no rales and no wheezes Cardio Rate: regular rate Rhythm: regular rhythm Heart sounds: no murmurs GI Palpation (GI): Soft to palpation and nontender Auscultation: normal bowel sounds Back/Spine/Pelvis Thoracic/Lumbar Spine: lumbar spinal tenderness Extrem Other: (+) edema noted over both lower legs and feet General: Yes full ROM, No cyanosis and Yes edema (2+ bipedal edema) Results Reviewed Results Reviewed: Laboratory Tests 01/09/24 01/09/24 01/09/24 11:30 11:30 13:56 WBC 8.5 Hgb 14.9 Hct 43.5 Plt Count 185 Sodium 142 Potassium 3.8 Creatinine 0.76 Estimated GFR > 60 Fasting Glucose 173 H Hemoglobin A1c % 7.2 H Calcium 9.4 AST 18 ALT 15 Triglycerides 106 Cholesterol 153 LDL Cholesterol, Calc 86 HDL Cholesterol Vitamin B12 25-OH Vitamin D Total TSH 1.22 Urine pH 5.5 Ur Specific [place] 1.015 Urine Protein Negative Urine Glucose (UA) Negative Urine Blood Negative Urine Nitrite Negative Ur Leukocyte Esterase Small (1+) H Microalb/Creat Ratio 25.2 01/09/24 13:56 WBC Hgb Hct Plt Count Sodium Potassium Creatinine Estimated GFR Fasting Glucose Hemoglobin A1c % Calcium AST ALT Triglycerides Cholesterol LDL Cholesterol, Calc HDL Cholesterol 46 Vitamin B12 > 2000 H 25-OH Vitamin D Total 36.4 TSH Urine pH Ur Specific [place] Urine Protein Urine Glucose (UA) Urine Blood Urine Nitrite Ur Leukocyte Esterase Microalb/Creat Ratio Assessment and Plan Assessment & Plan (1) Type 2 diabetes mellitus with microalbuminuria: Code(s): E11.29 - Type 2 diabetes mellitus with other diabetic kidney complication; R80.9 - Proteinuria, unspecified Qualifiers: Diabetes mellitus [facility] insulin use: with [facility] use Qualified Code(s): E11.29 - Type 2 diabetes mellitus with other diabetic kidney complication; R80.9 - Proteinuria, unspecified; 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 Plan: HgbA1c was at 7.2% on his labs done a few days ago (was at 6.8% a few months ago) - goal is at least < 8.0% or 7.5% Reinforced diabetic diet Continue Metformin 1000 mg BID and NovoLog mix 70/30 28 units twice a day; is also on Ozempic 0.25 mg Q week Follow up with endocrinology (at [facility]) as scheduled (2) Pure hypercholesterolemia: Code(s): E78.00 - Pure hypercholesterolemia, unspecified Plan: Results of his labs done a few days ago reviewed and discussed with patient Reinforced low cholesterol diet Continue Lovastatin 40 mg QD Will recheck his labs and fasting lipids in 4 months for follow up (3) Benign essential hypertension: Code(s): I10 - Essential (primary) hypertension Plan: Reinforced low sodium diet - goal is systolic BP of at least 130 mm or less Continue Metoprolol 25 mg BID Per request, he was referred to and will be seeing cardiology next week (patient used to see Dr. Manrique years ago before he retired) (4) Frequent diarrhea: Code(s): R19.7 - Diarrhea, unspecified Plan: Possibly due to IBS; patient is also S/P cholecystectomy so some of his symptoms may be due to postcholecystectomy diarrhea Had EGD done on 08/23/22 - EGD revealed diffuse erythema with a nodular appearing mucosa in the gastric body. There are a few chronic appearing erosions in the pre-pyloric area as well as patchy erythema in the duodenal bulb with also a 10 mm benign-appearing nodule in the apex of the bulb. Biopsies were obtained from the gastric antrum and body as well as from the duodenal bulb - biopsies came back mostly benign are negative for H pylori and celiac disease and showed only changes of chronic active duodenitis Follow-up with GI as scheduled (5) Lymphedema: Code(s): I89.0 - Lymphedema, not elsewhere classified Plan: Chronic, involving both lower extremities Patient is reminded to keep his legs elevated as often as he can to help minimize his swelling Will consider referral to vascular surgery for further evaluation and management if his symptoms persist - states that [facility] is actually thinking about referring him to vascular surgery but for the [facility] to cover [facility] visit, the referral has to come from them (6) Gait instability: Code(s): R26.81 - Unsteadiness on feet Plan: Most likely multifactorial and is most likely contributed to by his lumbar spine spine degenerative disc disease as well as neuropathy Was referred to and seen by Neurology recently, who recommended physical therapy but he declined States that he has been to physical therapy in the past with only temporary minimal improvement of his gait issues and he recalls that he had to pay a co- pay every time he goes to them Is advised to consider it again and perhaps they can also do home physical therapy instead; also advised to speak to his [facility] doctor about this and maybe t [facility] can offer him some services that are covered by the [facility] system (7) Frequent falls: Comment: multifactorial - cervical spondylosis, lumbar DJD, Neuropathy Code(s): R29.6 - Repeated falls Plan: Most likely related primarily to his gait instability and states that he now has to walk with a walking stick Have offered to provide patient with a prescription for a cane but he declined - states that he is more used to walking with a walking stick (8) Lumbar degenerative disc disease: Code(s): M51.36 - Other intervertebral disc degeneration, lumbar region Plan: Reinforced activity and weight-lifting restrictions Continue Gabapentin 300 mg TID and Cyclobenzaprine 10 mg TID PRN (9) Neuropathy: Code(s): G62.9 - Polyneuropathy, unspecified Plan: Was on Amitriptyline in the past to help with his leg pain and symptoms but this was stopped by psychiatry when he was started on Mirtazapine at bedtime for his depression and PTSD Patient states that he will consider going back on his Amitriptyline if his leg and feet pain gets significantly worse again (10) Degenerative disc disease, cervical: Code(s): M50.30 - Other cervical disc degeneration, unspecified cervical region Plan: S/P cervical spine surgery on 12/05/[address] Faye with improvement of symptoms Follow up with neurosurgery as scheduled or as needed (11) Nonintractable headache: Code(s): R51.9 - Headache, unspecified Qualifiers: Headache type: unspecified Headache chronicity pattern: unspecified pattern Qualified Code(s): R51.9 - Headache, unspecified Plan: CT head done last year came out negative Continue Topiramate 50 mg BID for headache prophylaxis - has been doing well on Rx for the past few months (12) Vitamin B12 deficiency: Code(s): E53.8 - Deficiency of other specified B group vitamins Plan: Continue Vitamin B12 1000 mcg QD (13) Vitamin D deficiency: Code(s): E55.9 - Vitamin D deficiency, unspecified Plan: Continue Vitamin D3 2000 units QD (14) Insomnia: Code(s): G47.00 - Insomnia, unspecified Qualifiers: Insomnia type: unspecified Qualified Code(s): G47.00 - Insomnia, unspecified Plan: Sleep hygiene reinforced Was on Zaleplon 10 mg Q HS PRN previously but is currently only on Melatonin 1 mg Q HS and seems to be doing okay on this Mirtazapine also helps with his sleep at night (15) Posttraumatic stress disorder: Code(s): F43.10 - Post-traumatic stress disorder, unspecified Plan: Continue Sertraline 100 mg 1.5 tablets daily and Mirtazapine 30 mg QD Follow up with [facility]ry (at [facility]) as scheduled (16) Depression: Code(s): F32.9 - Major depressive disorder, single episode, unspecified Qualifiers: Depression Type: unspecified Qualified Code(s): F32.9 - Major depressive disorder, single episode, unspecified Plan: Continue Mirtazapine 30 mg QD and Sertraline 100 mg 1.5 tablets QD (17) Smoker: Code(s): F17.200 - Nicotine dependence, unspecified, uncomplicated Plan: Counseled again on smoking cessation (18) Obesity (BMI 30-39.9): Code(s): E66.9 - Obesity, unspecified Plan: Reinforced diet/exercise as tolerated/lose weight Plan Follow up in 4 months Orders: Orders Hemoglobin A1c 4 Months E11.9 - Type 2 diabetes mellitus without complications Microalbumin, Random (w Creat) 4 Months E11.9 - Type 2 diabetes mellitus without complications Comprehensive [place]. Panel Fast 4 Months E78.00 - Pure hypercholesterolemia, unspecified Vitamin D 25-OH Total 4 Months E55.9 - Vitamin D deficiency, unspecified Vitamin B12 and Folate 4 Months E53.8 - Deficiency of other specified B group vitamins Lipid Panel 4 Months E78.00 - Pure hypercholesterolemia, unspecified Complete Blood Count Auto Diff 4 Months D64.9 - Anemia, unspecified TSH reflex Free T4 4 Months E78.00 - Pure hypercholesterolemia, unspecified UA CC w/rflx Micro + Cult 4 Months R30.0 - Dysuria Coding Level of Care Code Est Pt Level 4 (88165) Diagnoses Type 2 diabetes mellitus with microalbuminuria, with long-term current use of insulin E11.29; R80.9; Z79.4 Diabetes mellitus [facility] use: with [facility] use Pure hypercholesterolemia E78.00 Benign essential hypertension I10 Frequent diarrhea R19.7 Lymphedema I89.0 Gait instability R26.81 Frequent falls R29.6 Lumbar degenerative disc disease M51.36 Neuropathy G62.9 Degenerative disc disease, cervical M50.30 Nonintractable headache, unspecified chronicity pattern, unspecified headache type R51.9 Headache type: unspecified Headache chronicity pattern: unspecified pattern Vitamin B12 deficiency E53.8 Vitamin D deficiency E55.9 Insomnia, unspecified type G47.00 Insomnia type: unspecified Posttraumatic stress disorder F43.10 Depression, unspecified depression type F32.9 Depression Type: unspecified Smoker F17.200 Obesity (BMI 30-39.9) E66.9
== END 2024-01-13 15:49 | disposition home or self-care (01) ==
PROVIDERS: PCP Internal Medicine; Visit Provider Internal Medicine
DX: E11.29 Type 2 diabetes mellitus with other diabetic kidney complication (principal); Z79.4 Long term (current) use of insulin; R80.9 Proteinuria, unspecified; E78.00 Pure hypercholesterolemia, unspecified; I10 Essential (primary) hypertension; R19.7 Diarrhea, unspecified; I89.0 Lymphedema, not elsewhere classified; R26.81 Unsteadiness on feet; R29.6 Repeated falls; M51.36 Other intervertebral disc degeneration, lumbar region; G62.9 Polyneuropathy, unspecified; M50.30 Other cervical disc degeneration, unspecified cervical region
CPT/HCPCS: 99214

== ENCOUNTER 2024-01-20 13:55 | Outpatient (AMB) | payer MEDICARE, SELFPAY ==
[2024-01-20 14:13] VITALS: BP 120/76; PULSE 87; BMI 31.4
--- NOTE | 2024-01-20 14:13 | A.OFFVIS_ITS ---
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: No Allergies No Known Allergies [No Known Allergies*] Allergy (Verified 01/13/24 15:35) Medication List - Last Reconciled 01/20/24 by Jose Hurtado MD [ADULT PULL-UPS As directed] ammonium lactate 12% 1 appl topical DAILY aspirin 81 mg PO DAILY blood sugar diagnostic (FreeStyle Lite Strips) 1 strip miscellaneous TID cholecalciferol (vitamin D3) 25 mcg PO DAILY gabapentin 300 mg PO TID lancets (FreeStyle Lancets) 1 gauge topical TID loperamide (Imodium A-D) 2 mg PO Q6H PRN lovastatin 40 mg PO DAILY melatonin 1 mg PO BEDTIME PRN metformin 1,000 mg PO BID metoprolol tartrate 25 mg PO BID mirtazapine 30 mg PO BEDTIME peg-electrolyte soln 420 gram 240 mL PO ONCE PRN 1 day semaglutide (Ozempic) 0.25 mg (0.368 mL) subcut QWEEK sertraline 150 mg PO DAILY topiramate 25 mg PO BID vitamin B complex 1 cap PO DAILY white petrolatum-mineral oil 1 ea topical DAILY HPI HPI Comments History of Present Illness Details Tin requested a cardiology consultation today as he used to follow with Cardiology in the past. Patient has prior longstanding history of diabetes as well as hypertension and chronic smoking. Also family history of cardiovascular disease the premature age. Patient is sent here for further evaluation. In the past he is to see Cardiology with symptoms of what appears to be irregular heartbeat/PVCs. He has not having any symptoms currently except for he does have significant exertional shortness of breath which is suspected to be due to deconditioning and/smoking. Patient does not give any history of COPD. Patient also has no symptoms of exertional chest pain. Denies any lightheadedness, syncope. Does have gait instability from poor balance. Denies any orthopnea, PND, leg edema. Denies any prolonged palpitations or irregular heartbeat. FOR[facility]LY [facility] Medical History Type 2 diabetes mellitus with microalbuminuria Benign paroxysmal vertigo Obesity due to excess calories Keratotic lesion Irritable bowel Obesity (BMI 30-39.9) Smoker Depression Posttraumatic stress disorder Insomnia Postprandial diarrhea Vitamin B12 deficiency Vitamin D deficiency Nonintractable headache Degenerative disc disease, cervical Neuropathy Lumbar degenerative disc disease Benign essential hypertension Pure hypercholesterolemia Diabetes mellitus HTN (hypertension) Diabetes Chronic diarrhea Surgical History History of colonoscopy History of esophagogastroduodenoscopy (EGD) History of lumbar surgery History of surgery History of cervical spinal surgery History of laparoscopic cholecystectomy Family History Father Diabetes CVD (cardiovascular disease) Mother Stroke Social History Household Members: Children Household Members Other:: lives with his son Housing: Apartment Alcohol intake: current Alcohol intake frequency: holidays/special occasions only Patient Tobacco Use Status: Current everyday Tobacco user Tobacco use type: Cigar Cigarettes Per Day: 0.5 e-Cigarette/Vaping Use: Never Used Second Hand Smoke Exposure: Yes service: Yes Current occupational status: retired Cognitive needs: No Hearing needs: No Vision needs: Yes (reading glasses) Review of Systems Const Denies chills, Denies daytime sleepiness, Denies fatigue, Denies fever(s), Denies frequent falls, Denies poor appetite, Denies snoring, Denies stops breathing during sleep, Denies weakness, Denies weight gain and Denies weight loss Eyes Denies loss of vision ENT Denies dizziness and Denies hearing loss Card Denies chest pain, Denies claudication, Denies leg edema, Denies lightheadedness, Denies palpitations, Denies dyspnea, Denies dyspnea on exertion and Denies orthopnea Resp Denies cough, Denies excessive phlegm production, Denies dyspnea, Denies dyspnea on exertion, Denies snoring and Denies wheezing GI Denies abdominal pain, Denies hematochezia, Denies change in bowel habits, Denies nausea and Denies vomiting Denies dysuria and Denies urinary frequency Musc Denies arthralgias, Denies muscle weakness, Denies numbness and Denies other (frequent falls) Skin/Breast Denies nail changes and Denies rash Neuro Denies Abnormal speech present, Denies dizziness, Denies frequent falls, Denies loss of vision, Denies memory loss, Denies numbness and Denies weakness Psych Denies depression and Denies memory loss Endo Denies fatigue and Denies palpitations Kuldeep/Lymph Reports easy bruising and Reports other (anemia) Aller/Immun Denies wheezing Physical Exam Vital Signs: Last Vital Signs Pulse 87 01/20/24 14:13 BP 120/76 01/20/24 14:13 BMI result Body Mass Index 31.4 Const General: cooperative, comfortable, alert, awake and poor hygiene Nutritional Appearance: overweight Orientation/consciousness: patient oriented x3 HEENT Head: Yes normocephalic and Yes atraumatic Neck Neck: Yes trachea midline, Yes supple and Yes no JVD Resp Effort & Inspection: normal respiratory effort Auscultation: clear to auscultation bilaterally and diminished lung sounds Cardio Jugular venous distension: no JVD Palpation: normal PMI Rate: regular rate Rhythm: regular rhythm Heart sounds: S1 normal heart sound present, S2 normal heart sound present, no click, no gallops, no murmurs and no rubs GI Auscultation: normal bowel sounds Skin General skin exam: no rashes or lesions noted and ecchymosis Neuro General: patient oriented x3 and no focal motor deficits Speech: No Abnormal speech present Extrem General: Yes no clubbing, cyanosis or edema Office Procedures EKG Details: EKG shows normal sinus rhythm with minimal voltage criteria for LVH with nonspecific ST T wave changes [id number], Complete Assessment & Plan Assessment & Plan (1) SOB (shortness of breath) on exertion: Code(s): R06.02 - Shortness of breath Plan: Shortness of breath in Tin with significant risk factors of hypertension diabetes, smoking as well as family history. Need to proceed with workup for structural heart disease. I would suggest him to undergo vasodilating myocardial perfusion imaging as he has limited exercise capacity to evaluate for myocardial ischemia. Also suggest echocardiogram to evaluate LV systolic and diastolic function to evaluate for pulmonary hypertension RV size and systolic function. These tests will be scheduled in near future. Meanwhile we discussed about risk factor modification with smoking cessation. He understands and agrees but currently the 1st. Continue aggressive blood pressure management which is currently well optimized. Continue aggressive diabetes management. His LDL should be optimized and should be on statin therapy with target goal LDL less than 70 mg/dL given his multiple risk factors. I would consider switching him to high-intensity statin therapy. Follow up in the clinic in 6 weeks time after above-mentioned workup. Thank you for allowing me to partake in his care Orders: Orders CA lexiscan stress w gregory 01/20/24 R06.02 - Shortness of breath CA echo transthoracic complete 01/20/24 R06.02 - Shortness of breath Coding Level of Care Code New Pt Level 4 (66616) Diagnoses SOB (shortness of breath) on exertion R06.02 CPT Codes EKG - CPT: 21769-[id number], Complete ([id number])
== END 2024-01-20 14:50 | disposition home or self-care (01) ==
PROVIDERS: PCP Internal Medicine; Visit Provider Internal Medicine Cardiovascular Disease
DX: R06.02 Shortness of breath (principal)
CPT/HCPCS: 93010; 99204

== ENCOUNTER → 2024-01-20 13:55 | Outpatient (BNVA) | payer MEDICARE, SELFPAY | PROVIDERS: PCP Internal Medicine; Visit Provider Internal Medicine Cardiovascular Disease | DX: R06.02 Shortness of breath (principal) | CPT/HCPCS: 93005; 99202 ==

== ENCOUNTER 2024-04-02 12:29 | Outpatient (REF) | payer MEDICARE, SELFPAY ==
[2024-04-02 12:42] LABS: MANUAL DIFF FLAG NO
[2024-04-02 13:45] LABS: Basophils Absolute Auto 0.1 X10*3/uL (0.0-0.2); Basophils Percent Auto 0.9 % (0-2); Eosinophils Absolute Auto 0.2 X10*3/uL (0.0-0.4); Eosinophils Percent Auto 2.5 % (0-4); Hematocrit 40.3 % (42.0-52.0); Imm Gran Abs Auto 0.02 X10*3/uL (0.00-0.03); Imm Gran Pct Auto 0.3 % (0.0-0.4); Lymphocytes Absolute Auto 1.6 X10*3/uL (1.2-4.9); Lymphocytes Percent Auto 20.4 % (20-40); Mean Corpuscular HGB Conc 34.7 g/dl (31.0-36.0); Mean Corpuscular Hemoglobin 31.7 pg (27.0-33.0); Mean Corpuscular Volume 91.2 fL (80.0-98.0); Mean Platelet Volume 11.3 fL (9.4-12.4); Monocytes Absolute Auto 0.5 X10*3/uL (0.1-1.2); Monocytes Percent Auto 5.9 % (2-11); Neutrophils Absolute Auto 5.5 x10*3/uL (2.0-8.3); Platelet Count 160 X10*3/uL (160-400); Red Blood Count 4.42 X10*6/uL (4.60-5.80); Red Cell Distribution Width 14.3 % (11.0-16.0); White Blood Count 7.9 X10*3/uL (4.8-10.8)
[2024-04-02 13:47] LABS: Estimated Average Glucose 226 mg/dL; Hemoglobin A1c % 9.5 % (<6.0)
[2024-04-02 14:26] LABS: Alanine Aminotransferase 10 U/L (0-40); Albumin Level 3.7 g/dL (3.5-5.0); Alkaline Phosphatase 52 U/L (39-117); Anion Gap 11 (12-20); Aspartate Amino Transferase 11 U/L (5-37); Bilirubin Total 0.8 mg/dL (0.0-1.0); Blood Urea Nitrogen 8 mg/dL (9-16); Carbon Dioxide 22 mmol/L (22-29); Chloride 109 mmol/L (96-108); Cholesterol 192 mg/dL (<200); Estimated Glomerular Filt Rate > 60; Glucose Fasting 300 mg/dL (60-99); HDL Cholesterol 45 mg/dL (>40); LDL Cholesterol Calculated 109 mg/dL (<100); Potassium 3.1 mmol/L (3.3-5.1); Sodium 139 mmol/L (135-145); Total Protein 6.5 g/dL (6.5-8.0); Triglycerides 193 mg/dL (<150)
[2024-04-02 14:44] LABS: TSH reflex Free T4 1.39 uIU/mL (0.32-4.0); Vitamin D 25-OH Total 28.4 ng/mL (>30)
[2024-04-02 15:16] LABS: Folate 11.1 ng/mL (> or = 4.0); Vitamin B12 1091 pg/mL (200-900)
[2024-04-02 15:18] LABS: Appearance Urine Clear; Color Urine Yellow; Glucose Urine UA >=1000 mg/dL (Negative); Leukocyte Esterase Urine Negative (Negative); Nitrite Urine Negative (Negative); PH 6.5 (5.0-9.0); Specific Gravity - Urine >= 1.030 (1.005-1.025); UMIC TRIGGER UACC YES; Urine Blood Negative (Negative); Urine Ketones Negative (Negative); Urine Protein Negative (Neg-Trace)
[2024-04-02 15:33] LABS: Bacteria Urine None Seen (None Seen); Hyaline Casts Urine 0-2 /LPF (0-2); RBC Urine 0-2 /HPF (0-2); Squamous Epithelial Cell Urine 0-2 /HPF (0-2); WBC Urine 0-5 /HPF (0-5)
[2024-04-02 15:45] LABS: Creatinine Urine 66.85 mg/dL; Microalbum/Creatinine Ratio Ur 16.4 ug/mg cr (<30)
== END 2024-04-02 12:30 | disposition home or self-care (01) ==
LOC: HO.LAB 12:29
PROVIDERS: PCP Internal Medicine; Visit Provider Internal Medicine
DX: E11.9 Type 2 diabetes mellitus without complications (principal); E55.9 Vitamin D deficiency, unspecified; E53.8 Deficiency of other specified B group vitamins; R30.0 Dysuria; E78.00 Pure hypercholesterolemia, unspecified; D64.9 Anemia, unspecified
CPT/HCPCS: 36415; 80053; 80061; 81001; 82043; 82306; 82570; 82607; 82746; 83036; 84443; 85025

== ENCOUNTER 2024-04-05 14:51 | Outpatient (AMB) | payer MEDICARE, SELFPAY ==
--- NOTE | 2024-04-05 14:55 | MHC.PC.OV ---
Vital Signs 04/05/24 14:57 Height 6 ft 2 in Weight 254 lb 2 oz BMI 32.6 BP 110/66 Blood Pressure Location Lt brachial Position Sitting Pulse 95 Pulse Source Pulse Oximeter Pulse Oximetry (%) 95 Oxygen Delivery Method Room Air Intake Visit Reasons: wounds on his feet and legs/ high blood sugar Intake Note: Patient is here to follow up on wounds on his feet and legs, high blood sugar. 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: Not Required per policy Accompanied by: Self / Same As Patient Allergies No Known Allergies [No Known Allergies*] Allergy (Verified 04/05/24 15:23) Medication List - Last Reconciled 04/05/24 by Mode Wiggins MD [ADULT PULL-UPS As directed] ammonium lactate 12% 1 appl topical DAILY aspirin 81 mg PO DAILY blood sugar diagnostic (FreeStyle Lite Strips) 1 strip miscellaneous TID cholecalciferol (vitamin D3) 25 mcg PO DAILY gabapentin 300 mg PO TID insulin aspart U-100 (Novolog FlexPen U-100 Insulin aspart) 12 units SQ TID with meals and 10 units SQ with snacks insulin glargine-yfgn (Semglee (insulin glargine-yfgn) Pen) 24 units subcut BID lancets (FreeStyle Lancets) 1 gauge topical TID loperamide (Imodium A-D) 2 mg PO Q6H PRN lovastatin 40 mg PO DAILY 90 days melatonin 1 mg PO BEDTIME PRN metformin 1,000 mg PO BID 90 days metoprolol tartrate 25 mg PO BID 90 days mirtazapine 30 mg PO BEDTIME peg-electrolyte soln 420 gram 240 mL PO ONCE PRN 1 day semaglutide 1 mg subcut QWEEK sertraline 150 mg PO DAILY topiramate 25 mg PO BID vitamin B complex 1 cap PO DAILY white petrolatum-mineral oil 1 ea topical DAILY Tobacco use date assessed: 04/05/24 Fall risk assessment: No Falls in past year Last assessed Fall Risk: 04/05/24 Dental Screening Dental Screen Date: 01/13/24 HPI wounds on his feet and legs/ high blood sugar HPI Details Patient comes in today for further evaluation of increasing redness and some pain over both of his lower legs lately - is concerned that he may be breaking out again in some open sores on his legs Admits that his blood sugars have also been running high lately despite all of his current meds that he is being prescribed by [facility] doctor [facility] Brought in his current med list and it looks like he has been on Semglee 24 units SQ BID and Novolog 12 units TID with meals and 10 units with snacks, and also on Metformin 1000 mg BID and Ozempic 1 mg SQ once a week States that his PTSD has been acting up lately and he sometimes go on for days without really eating anything at all during mealtimes and just drinks some coffee Is aware that doing so makes it harder to get his diabetes under control as we have previously discussed this with him He has also gained a lot of weight since his last visit (about 10 pounds) and feels fatigued often lately He denies any fever, headaches or dizziness Denies any chest pains, no increased SOB No nausea/vomiting, no abdominal pain No change in bowel habits noted He had his follow up labs done a few days ago - to discuss his results COUNT INCLUDES THE [facility] Medical History Type 2 diabetes mellitus with microalbuminuria Benign paroxysmal vertigo Obesity due to excess calories Keratotic lesion Irritable bowel Obesity (BMI 30-39.9) Smoker Depression Posttraumatic stress disorder Insomnia Postprandial diarrhea Vitamin B12 deficiency Vitamin D deficiency Nonintractable headache Degenerative disc disease, cervical Neuropathy Lumbar degenerative disc disease Benign essential hypertension Pure hypercholesterolemia Diabetes mellitus HTN (hypertension) Diabetes Chronic diarrhea Surgical History History of colonoscopy History of esophagogastroduodenoscopy (EGD) History of lumbar surgery History of surgery History of cervical spinal surgery History of laparoscopic cholecystectomy Family History Father Diabetes CVD (cardiovascular disease) Mother Stroke Social History Household Members: Children Household Members Other:: lives with his son Housing: Apartment Alcohol intake: current Alcohol intake frequency: holidays/special occasions only Patient Tobacco Use Status: Current everyday Tobacco user Tobacco use type: Cigar Cigarette Packs Per Day: 0.5 Cigarettes Per Day: 10 e-Cigarette/Vaping Use: Never Used Second Hand Smoke Exposure: Yes service: Yes Current occupational status: retired Cognitive needs: Yes (cane) Hearing needs: No Vision needs: Yes (reading glasses) Questionnaire Thrive Questionnaire Date Thrive assessed: 01/13/24 SHERYL-7 AMB Questionnaire SHERYL-7 Date SHERYL - 7 assessed: 01/13/24 Source: Developed by Drs. Thom Ferrera, Aster Piedra, Vinnie Lizarraga and colleagues, with an educational gladys from [employer]. Review of Systems Const Denies chills, Reports difficulty sleeping, Reports fatigue, Denies fever(s) and Denies headache(s) ENT Denies dysphagia, Denies dizziness, Denies otalgia, Denies headache(s), Denies odynophagia, Reports tinnitus (on and off) and Denies sore throat Card Denies chest pain, Denies palpitations and Denies dyspnea Resp Denies cough, Denies dyspnea and Denies wheezing GI Denies abdominal pain, Denies constipation, Denies dysphagia, Denies heartburn, Reports fecal incontinence, Reports diarrhea (frequent/recurrent), Reports loose stools, Denies nausea, Denies odynophagia and Denies vomiting Denies dysuria, Reports nocturia, Reports urinary frequency and Reports urinary incontinence Musc Reports abnormal gait (unsteady), Reports back pain and Reports arthralgias (including over his left knee lately) Skin/Breast Details: increased redness over the anterior aspect of both lower legs Reports rash (over both lower legs) and Denies unusual bruising Neuro Reports abnormal gait (unsteady), Denies dizziness and Denies headache(s) Endo Reports fatigue and Denies palpitations Kuldeep/Lymph Details: frequent swelling of both legs Aller/Immun Denies wheezing Physical exam (Primary Care) Vital Signs: Last Vital Signs Pulse 95 04/05/24 14:57 BP 110/66 04/05/24 14:57 Pulse Ox 95 04/05/24 14:57 Oxygen Delivery Method Room Air 04/05/24 14:57 BMI result Body Mass Index 32.6 Tobacco/Smoking Status: Tobacco use Status Tobacco use date assessed 04/05/24 04/05/24 15:05 Patient Tobacco Use Status Current everyday Tobacco 04/05/24 15:05 Tobacco use type Cigar 04/05/24 15:05 e-Cigarette/Vaping Use Never Used 04/05/24 15:05 Thrive Assessment: Date of Thrive Assessment Date Thrive assessed 01/13/24 04/05/24 15:05 Const General: no acute distress and alert HENMT Ears: TM's normal bilaterally and EAC's normal Throat: Yes posterior oropharynx normal and Yes tonsils normal (no TP congestion noted) Neck Neck: Yes no lymphadenopathy and Yes supple Thyroid: Thyroid normal Resp Auscultation: clear to auscultation bilaterally, no rales and no wheezes Cardio Rate: regular rate Rhythm: regular rhythm Heart sounds: no murmurs GI Palpation (GI): Soft to palpation and nontender Auscultation: normal bowel sounds General: Yes no CVA tenderness Back/Spine/Pelvis Back: no CVA tenderness Thoracic/Lumbar Spine: lumbar spinal tenderness Skin Other: increased erythema over the anterior aspect of both lower legs, which are slightly warm to touch; there are also a few scattered scaling rash over the lower legs anteriorly but no open sores are noted at this time Extrem Other: (+) edema noted over both lower legs and feet General: Yes full ROM, No cyanosis and Yes edema (2+ bipedal edema) Results Reviewed Results Reviewed: Laboratory Tests 04/02/24 04/02/24 12:35 12:41 WBC 7.9 Hgb 14.0 Hct 40.3 L Plt Count 160 Sodium 139 Potassium 3.1 L Creatinine 0.80 Estimated GFR > 60 Fasting Glucose 300 H Hemoglobin A1c % 9.5 H Calcium 9.0 AST 11 ALT 10 Triglycerides 193 H Cholesterol 192 LDL Cholesterol, Calc 109 H HDL Cholesterol 45 Vitamin B12 1091 H 25-OH Vitamin D Total 28.4 L TSH 1.39 Ur Specific [place] >= 1.030 H Urine Protein Negative Urine Glucose (UA) >=1000 H Urine Blood Negative Urine Nitrite Negative Ur Leukocyte Esterase Negative Microalb/Creat Ratio 16.4 Assessment and Plan Assessment & Plan (1) Bilateral lower leg cellulitis: Code(s): L03.116 - Cellulitis of left lower limb; L03.115 - Cellulitis of right lower limb Plan: Will start patient again empirically on Doxycycline 100 mg BID x 10 days Advised that as he currently does NOT have any open wounds on his lower legs, a referral to the wound clinic is not indicated at this time He is reminded to keep his legs elevated as often as he can throughout the day to help minimize his leg edema and that better control of his blood sugar will help facilitate healing of his cellulitis (2) Lymphedema: Code(s): I89.0 - Lymphedema, not elsewhere classified Plan: Chronic, involving both lower extremities Patient is reminded to keep his legs elevated as often as he can to help minimize his swelling Will consider referral to vascular surgery for further evaluation and management if his symptoms persist - states that his [facility] doctor is actually thinking about referring him to vascular surgery but for the MD to cover his visit, the referral has to come from them (3) Type 2 diabetes mellitus with microalbuminuria: Code(s): E11.29 - Type 2 diabetes mellitus with other diabetic kidney complication; R80.9 - Proteinuria, unspecified Plan: His HgbA1c was at 9.5% on his labs done a few days ago (was at 7.2% less than 3 months ago) - goal is at least < 8.0% or 7.5% Reinforced diabetic diet Continue Metformin 1000 mg BID, Insulin Glargine (Semglee) 24 units BID and NovoLog 12 units TID with meals and 10 units with snacks; is also on Ozempic 1 mg Q week Follow up with endocrinology (at the [facility]) as scheduled (4) Onychomycosis: Code(s): B35.1 - Tinea unguium Plan: He has extensive onycholysis of multiple toenails on both feet as well as significant keratoderma Will refer him to podiatry for further evaluation and management (5) Pure hypercholesterolemia: Code(s): E78.00 - Pure hypercholesterolemia, unspecified Plan: Results of his labs done a few days ago reviewed and discussed with patient Reinforced low cholesterol diet Continue Lovastatin 40 mg QD (6) Benign essential hypertension: Code(s): I10 - Essential (primary) hypertension Plan: Reinforced low sodium diet - goal is systolic BP of at least 130 mm or less Continue Metoprolol 25 mg BID Follow up with cardiology as scheduled (7) Frequent diarrhea: Code(s): R19.7 - Diarrhea, unspecified Plan: Possibly due to IBS; patient is also S/P cholecystectomy so some of his symptoms may be due to postcholecystectomy diarrhea Had EGD done on 08/23/22 - EGD revealed diffuse erythema with a nodular appearing mucosa in the gastric body. There are a few chronic appearing erosions in the pre-pyloric area as well as patchy erythema in the duodenal bulb with also a 10 mm benign-appearing nodule in the apex of the bulb. Biopsies were obtained from the gastric antrum and body as well as from the duodenal bulb - biopsies came back mostly benign are negative for H pylori and celiac disease and showed only changes of chronic active duodenitis Follow-up with GI as scheduled (8) Gait instability: Code(s): R26.81 - Unsteadiness on feet Plan: This is most likely multifactorial and is at least partially contributed to by his lumbar spine spine degenerative disc disease as well as his neuropathy Was referred to and seen by Neurology recently, who recommended physical therapy but he declined States that he has been to physical therapy in the past with only temporary minimal improvement of his gait issues and he recalls that he had to pay a co-pay every time he goes to them Is advised to consider it again and perhaps they can also do home physical therapy instead; also advised to speak to [facility] doctor about this and maybe they can offer him some services that are covered by the [facility] (9) Frequent falls: Comment: multifactorial - cervical spondylosis, lumbar DJD, Neuropathy Code(s): R29.6 - Repeated falls Plan: Most likely related primarily to his gait instability and states that he now has to walk with a walking stick Have offered to provide patient with a prescription for a cane but he declined - states that he is more used to walking with a walking stick (10) Lumbar degenerative disc disease: Code(s): M51.36 - Other intervertebral disc degeneration, lumbar region Plan: Reinforced activity and weight-lifting restrictions Continue Gabapentin 300 mg TID and Cyclobenzaprine 10 mg TID PRN (11) Neuropathy: Code(s): G62.9 - Polyneuropathy, unspecified Plan: Was on Amitriptyline in the past to help with his leg pain and symptoms but this was stopped by psychiatry when he was started on Mirtazapine at bedtime for his depression and PTSD Patient states that he will consider going back on his Amitriptyline if his leg and feet pain gets significantly worse again (12) Degenerative disc disease, cervical: Code(s): M50.30 - Other cervical disc degeneration, unspecified cervical region Plan: S/P cervical spine surgery on 12/05/[address] Faye with improvement of symptoms Follow up with neurosurgery as scheduled or as needed (13) Nonintractable headache: Code(s): R51.9 - Headache, unspecified Qualifiers: Headache chronicity pattern: unspecified pattern Headache type: unspecified Qualified Code(s): R51.9 - Headache, unspecified Plan: CT head done last year came out negative Continue Topiramate 50 mg BID for headache prophylaxis - has been doing well on Rx for the past few months (14) Vitamin B12 deficiency: Code(s): E53.8 - Deficiency of other specified B group vitamins Plan: Continue Vitamin B12 1000 mcg QD (15) Vitamin D deficiency: Code(s): E55.9 - Vitamin D deficiency, unspecified Plan: Continue Vitamin D3 2000 units QD (16) Insomnia: Code(s): G47.00 - Insomnia, unspecified Qualifiers: Insomnia type: unspecified Qualified Code(s): G47.00 - Insomnia, unspecified Plan: Sleep hygiene reinforced Was on Zaleplon 10 mg Q HS PRN previously but is currently only on Melatonin 1 mg Q HS and seems to be doing okay on this Mirtazapine also helps with his sleep at night (17) Posttraumatic stress disorder: Code(s): F43.10 - Post-traumatic stress disorder, unspecified Plan: Continue Sertraline 100 mg 1.5 tablets daily and Mirtazapine 30 mg QD Follow up with psychiatry (at the [facility]) as scheduled (18) Depression: Code(s): F32.9 - Major depressive disorder, single episode, unspecified Qualifiers: Depression Type: unspecified Qualified Code(s): F32.9 - Major depressive disorder, single episode, unspecified Plan: Continue Mirtazapine 30 mg QD and Sertraline 100 mg 1.5 tablets QD (19) Smoker: Code(s): F17.200 - Nicotine dependence, unspecified, uncomplicated Plan: Counseled again on smoking cessation (20) Obesity (BMI 30-39.9): Code(s): E66.9 - Obesity, unspecified Plan: Reinforced diet; exercise and weight loss are not realistic due to his physical issues and comorbidities Plan Follow up as scheduled next month Orders: Referrals Podiatry Referral B35.1 - Tinea unguium, E11.42 - Type 2 diabetes mellitus with diabetic polyneuropathy, Q82.8 - Other specified congenital malformations of skin, 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 Medications: New doxycycline monohydrate 100 mg PO BID 10 days 20 caps 0RF Coding Level of Care Code Est Pt Level 4 (03018) Diagnoses Bilateral lower leg cellulitis L03.116; L03.115 Lymphedema I89.0 Type 2 diabetes mellitus with microalbuminuria E11.29; R80.9 Onychomycosis B35.1 Pure hypercholesterolemia E78.00 Benign essential hypertension I10 Frequent diarrhea R19.7 Gait instability R26.81 Frequent falls R29.6 Lumbar degenerative disc disease M51.36 Neuropathy G62.9 Degenerative disc disease, cervical M50.30 Nonintractable headache, unspecified chronicity pattern, unspecified headache type R51.9 Headache chronicity pattern: unspecified pattern Headache type: unspecified Vitamin B12 deficiency E53.8 Vitamin D deficiency E55.9 Insomnia, unspecified type G47.00 Insomnia type: unspecified Posttraumatic stress disorder F43.10 Depression, unspecified depression type F32.9 Depression Type: unspecified Smoker F17.200 Obesity (BMI 30-39.9) E66.9
[2024-04-05 14:57] VITALS: BP 110/66; PULSE 95; O2SAT 95; BMI 32.6
== END 2024-04-05 16:37 | disposition home or self-care (01) ==
PROVIDERS: PCP Internal Medicine; Visit Provider Internal Medicine
DX: L03.116 Cellulitis of left lower limb (principal); L03.115 Cellulitis of right lower limb; I89.0 Lymphedema, not elsewhere classified; B35.1 Tinea unguium; E78.00 Pure hypercholesterolemia, unspecified; I10 Essential (primary) hypertension; R19.7 Diarrhea, unspecified; R26.81 Unsteadiness on feet; R29.6 Repeated falls; M51.36 Other intervertebral disc degeneration, lumbar region; G62.9 Polyneuropathy, unspecified; M50.30 Other cervical disc degeneration, unspecified cervical region
CPT/HCPCS: 99214

== ENCOUNTER 2024-05-14 14:52 | Outpatient (AMB) | payer MEDICARE, SELFPAY ==
--- NOTE | 2024-05-14 14:54 | MHC.PC.OV ---
Vital Signs 05/14/24 14:57 Height 6 ft 2 in Weight 252 lb 8 oz BMI 32.4 BP 118/62 Blood Pressure Location Lt brachial Position Sitting Pulse 89 Pulse Source Pulse Oximeter Pulse Oximetry (%) 96 Oxygen Delivery Method Room Air Intake Visit Reasons: DM, hyperlipidemia, HTN, depression, PTSD Intake Note: Patient is here to follow up on DM, HLD, HTN, PTSD, Depression. 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 Accompanied by: Self / Same As Patient Allergies No Known Allergies [No Known Allergies*] Allergy (Verified 05/14/24 15:30) Medication List - Last Reconciled 05/14/24 by Mode Wiggins MD [ADULT PULL-UPS As directed] ammonium lactate 12% 1 appl topical DAILY aspirin 81 mg PO DAILY blood sugar diagnostic (FreeStyle Lite Strips) 1 strip miscellaneous TID cholecalciferol (vitamin D3) 25 mcg PO DAILY doxycycline monohydrate 100 mg PO BID 10 days gabapentin 300 mg PO TID insulin aspart U-100 (Novolog FlexPen U-100 Insulin aspart) 12 units SQ TID with meals and 10 units SQ with snacks insulin glargine-yfgn (Semglee (insulin glargine-yfgn) Pen) 24 units subcut BID lancets (FreeStyle Lancets) 1 gauge topical TID loperamide (Imodium A-D) 2 mg PO Q6H PRN lovastatin 40 mg PO DAILY 90 days melatonin 1 mg PO BEDTIME PRN metformin 1,000 mg PO BID 90 days metoprolol tartrate 25 mg PO BID 90 days mirtazapine 30 mg PO BEDTIME peg-electrolyte soln 420 gram 240 mL PO ONCE PRN 1 day semaglutide 1 mg subcut QWEEK sertraline 150 mg PO DAILY topiramate 25 mg PO BID vitamin B complex 1 cap PO DAILY white petrolatum-mineral oil 1 ea topical DAILY Tobacco use date assessed: 05/14/24 Fall risk assessment: No Falls in past year Last assessed Fall Risk: 05/14/24 Dental Screening Dental Screen Date: 01/13/24 HPI DM, hyperlipidemia, HTN, depression, PTSD HPI Details Patient comes in today for his follow-up visit States that he feels okay States that his lower leg cellulitis appears to have improved with the antibiotic was prescribed at his last visit a few weeks ago He currently denies any increased headaches or dizziness Denies any chest pains, no increased shortness of breath No nausea /vomiting, no abdominal pain No change in bowel habits noted He had his follow-up labs done last month - to discuss his results [facility] Medical History Type 2 diabetes mellitus with microalbuminuria Benign paroxysmal vertigo Obesity due to excess calories Keratotic lesion Irritable bowel Obesity (BMI 30-39.9) Smoker Depression Posttraumatic stress disorder Insomnia Postprandial diarrhea Vitamin B12 deficiency Vitamin D deficiency Nonintractable headache Degenerative disc disease, cervical Neuropathy Lumbar degenerative disc disease Benign essential hypertension Pure hypercholesterolemia Diabetes mellitus HTN (hypertension) Diabetes Chronic diarrhea Surgical History History of colonoscopy History of esophagogastroduodenoscopy (EGD) History of lumbar surgery History of surgery History of cervical spinal surgery History of laparoscopic cholecystectomy Family History Father Diabetes CVD (cardiovascular disease) Mother Stroke Social History Household Members: Children Household Members Other:: lives with his son Housing: Apartment Alcohol intake: current Alcohol intake frequency: holidays/special occasions only Patient Tobacco Use Status: Current everyday Tobacco user Tobacco use type: Cigarette Cigarette Packs Per Day: 0.5 Cigarettes Per Day: 10 e-Cigarette/Vaping Use: Never Used Second Hand Smoke Exposure: Yes service: Yes Current occupational status: retired Cognitive needs: Yes (cane) Hearing needs: No Vision needs: Yes (reading glasses) Questionnaire Thrive Questionnaire Date Thrive assessed: 01/13/24 SHERYL-7 AMB Questionnaire SHERYL-7 Date SHERYL - 7 assessed: 01/13/24 Source: Developed by Drs. Thom Ferrera, Aster Piedra, Vinnie Lizarraga and colleagues, with an educational gladys from [employer]. Review of Systems Const Denies chills, Reports difficulty sleeping, Reports fatigue, Denies fever(s) and Denies headache(s) ENT Denies dysphagia, Denies dizziness, Denies otalgia, Denies headache(s), Denies odynophagia, Reports tinnitus (on and off) and Denies sore throat Card Denies chest pain, Denies palpitations and Denies dyspnea Resp Denies cough, Denies dyspnea and Denies wheezing GI Denies abdominal pain, Denies constipation, Denies dysphagia, Denies heartburn, Reports fecal incontinence, Reports diarrhea (frequent/recurrent), Reports loose stools, Denies nausea, Denies odynophagia and Denies vomiting Denies dysuria, Reports nocturia, Reports urinary frequency and Reports urinary incontinence Musc Reports abnormal gait (unsteady), Reports back pain and Reports arthralgias (including over his left knee lately) Skin/Breast Details: increased redness over the anterior aspect of both lower legs Reports rash (over both lower legs) and Denies unusual bruising Neuro Reports abnormal gait (unsteady), Denies dizziness and Denies headache(s) Endo Reports fatigue and Denies palpitations Kuldeep/Lymph Details: frequent swelling of both legs Aller/Immun Denies wheezing Physical exam (Primary Care) Vital Signs: Last Vital Signs Pulse 89 05/14/24 14:57 BP 118/62 05/14/24 14:57 Pulse Ox 96 05/14/24 14:57 Oxygen Delivery Method Room Air 05/14/24 14:57 BMI result Body Mass Index 32.4 Tobacco/Smoking Status: Tobacco use Status Tobacco use date assessed 05/14/24 05/14/24 15:00 Patient Tobacco Use Status Current everyday Tobacco 05/14/24 15:00 Tobacco use type Cigarette 05/14/24 15:00 e-Cigarette/Vaping Use Never Used 05/14/24 15:00 Thrive Assessment: Date of Thrive Assessment Date Thrive assessed 01/13/24 05/14/24 15:00 Const General: no acute distress and alert HENMT Ears: TM's normal bilaterally and EAC's normal Throat: Yes posterior oropharynx normal and Yes tonsils normal (no TP congestion noted) Neck Neck: Yes no lymphadenopathy and Yes supple Thyroid: Thyroid normal Resp Auscultation: clear to auscultation bilaterally, no rales and no wheezes Cardio Rate: regular rate Rhythm: regular rhythm Heart sounds: no murmurs GI Palpation (GI): Soft to palpation and nontender Auscultation: normal bowel sounds General: Yes no CVA tenderness Back/Spine/Pelvis Back: no CVA tenderness Thoracic/Lumbar Spine: lumbar spinal tenderness Skin Other: increased erythema over the anterior aspect of both lower legs, which are slightly warm to touch; there are also a few scattered scaling rash over the lower legs anteriorly but no open sores are noted at this time Extrem Other: (+) edema noted over both lower legs and feet General: Yes full ROM, No cyanosis and Yes edema (2+ bipedal edema) Results Reviewed Results Reviewed: Laboratory Tests 04/02/24 04/02/24 12:35 12:41 WBC 7.9 Hgb 14.0 Hct 40.3 L Plt Count 160 Sodium 139 Potassium 3.1 L Creatinine 0.80 Estimated GFR > 60 Fasting Glucose 300 H Hemoglobin A1c % 9.5 H Calcium 9.0 AST 11 ALT 10 Triglycerides 193 H Cholesterol 192 LDL Cholesterol, Calc 109 H HDL Cholesterol 45 Vitamin B12 1091 H 25-OH Vitamin D Total 28.4 L TSH 1.39 Ur Specific [place] >= 1.030 H Urine Protein Negative Urine Glucose (UA) >=1000 H Urine Blood Negative Urine Nitrite Negative Ur Leukocyte Esterase Negative Microalb/Creat Ratio 16.4 Assessment and Plan Assessment & Plan (1) Type 2 diabetes mellitus with microalbuminuria: Code(s): E11.29 - Type 2 diabetes mellitus with other diabetic kidney complication; R80.9 - Proteinuria, unspecified Plan: His HgbA1c was again elevated at 9.5% on his labs done last month (was previously at 7.2% about 3 months ago) - goal is at least < 8.0% or 7.5% Reinforced diabetic diet Continue Metformin 1000 mg BID, Insulin Glargine (Semglee) 26 units BID and NovoLog 12 units TID with meals and 10 units with snacks; is also on Ozempic 1 mg Q week He is [facility] of [facility] and I will leave it up to them to manage and adjust or change his diabetes meds as appropriate He is advised to continue following up with his 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 as scheduled (2) Pure hypercholesterolemia: Code(s): E78.00 - Pure hypercholesterolemia, unspecified Plan: Results of his labs done last month reviewed and discussed with patient Reinforced low cholesterol diet Continue Lovastatin 40 mg QD Will recheck his labs and fasting lipids in 3 months for follow-up (3) Benign essential hypertension: Code(s): I10 - Essential (primary) hypertension Plan: Reinforced low sodium diet - goal is systolic BP of at least 130 mm or less Continue Metoprolol 25 mg BID Follow up with cardiology as scheduled (4) Frequent diarrhea: Code(s): R19.7 - Diarrhea, unspecified Plan: Possibly due to IBS; patient is also S/P cholecystectomy so some of his symptoms may be due to postcholecystectomy diarrhea Had EGD done on 08/23/22 - EGD revealed diffuse erythema with a nodular appearing mucosa in the gastric body. There are a few chronic appearing erosions in the pre-pyloric area as well as patchy erythema in the duodenal bulb with also a 10 mm benign-appearing nodule in the apex of the bulb. Biopsies were obtained from the gastric antrum and body as well as from the duodenal bulb - biopsies came back mostly benign are negative for H pylori and celiac disease and showed only changes of chronic active duodenitis Follow-up with GI as scheduled (5) Lymphedema: Code(s): I89.0 - Lymphedema, not elsewhere classified Plan: Chronic, involving both lower extremities Patient is reminded to keep his legs elevated as often as he can to help minimize his swelling Will consider referral to vascular surgery for further evaluation and management if his symptoms persist - states that [facility] actually thinking about referring him to [facility] but for [facility] to cover his visit, the referral has to come from them (6) Onychomycosis: Code(s): B35.1 - Tinea unguium Plan: He has extensive onycholysis of multiple toenails on both feet as well as significant keratoderma Follow up with podiatry as scheduled (7) Gait instability: Code(s): R26.81 - Unsteadiness on feet Plan: This is most likely multifactorial and is at least partially contributed to by his lumbar spine spine degenerative disc disease as well as his neuropathy He was referred to and seen by Neurology, who recommended physical therapy but he declined States that he has been to physical therapy in the past with only temporary minimal improvement of his gait issues and he recalls that he had to pay a co-pay every time he goes to them He is advised to consider it again and perhaps they can do home physical therapy instead; have also advised him to speak to his [facility] doctor about this and maybe they can offer him some services that are covered by the [facility] (8) Frequent falls: Comment: multifactorial - cervical spondylosis, lumbar DJD, Neuropathy Code(s): R29.6 - Repeated falls Plan: This is most likely related primarily to his gait instability and states that he now has to walk with a walking stick Have offered to provide patient with a prescription for a cane but he declined - states that he is more used to walking with a walking stick (9) Lumbar degenerative disc disease: Code(s): M51.36 - Other intervertebral disc degeneration, lumbar region Plan: Reinforced activity and weight-lifting restrictions Continue Gabapentin 300 mg TID and Cyclobenzaprine 10 mg TID PRN (10) Neuropathy: Code(s): G62.9 - Polyneuropathy, unspecified Plan: He was on Amitriptyline in the past to help with his leg pain and symptoms but this was stopped by psychiatry when he was started on Mirtazapine at bedtime for his depression and PTSD Patient states that he will consider going back on his Amitriptyline if his leg and feet pain gets significantly worse again (11) Degenerative disc disease, cervical: Code(s): M50.30 - Other cervical disc degeneration, unspecified cervical region Plan: S/P cervical spine surgery on 12/05/[address] Faye with improvement of symptoms Follow up with neurosurgery as scheduled or as needed (12) Nonintractable headache: Code(s): R51.9 - Headache, unspecified Qualifiers: Headache chronicity pattern: unspecified pattern Headache type: unspecified Qualified Code(s): R51.9 - Headache, unspecified Plan: CT head done last year came out negative Continue Topiramate 50 mg BID for headache prophylaxis - has been doing well on Rx for the past few months (13) Vitamin B12 deficiency: Code(s): E53.8 - Deficiency of other specified B group vitamins Plan: Continue Vitamin B12 1000 mcg QD (14) Vitamin D deficiency: Code(s): E55.9 - Vitamin D deficiency, unspecified Plan: Continue Vitamin D3 2000 units QD (15) Insomnia: Code(s): G47.00 - Insomnia, unspecified Qualifiers: Insomnia type: unspecified Qualified Code(s): G47.00 - Insomnia, unspecified Plan: Sleep hygiene reinforced Was on Zaleplon 10 mg Q HS PRN previously but is currently only on Melatonin 1 mg Q HS and seems to be doing okay on this Mirtazapine also helps with his sleep at night (16) Posttraumatic stress disorder: Code(s): F43.10 - Post-traumatic stress disorder, unspecified Plan: Continue Sertraline 100 mg 1.5 tablets daily and Mirtazapine 30 mg QD Follow up with [facility]ry (at [facility]) as scheduled (17) Depression: Code(s): F32.9 - Major depressive disorder, single episode, unspecified Qualifiers: Depression Type: unspecified Qualified Code(s): F32.9 - Major depressive disorder, single episode, unspecified Plan: Continue Mirtazapine 30 mg QD and Sertraline 100 mg 1.5 tablets QD (18) Smoker: Code(s): F17.200 - Nicotine dependence, unspecified, uncomplicated Plan: Counseled again on smoking cessation (19) Obesity (BMI 30-39.9): Code(s): E66.9 - Obesity, unspecified Plan: Reinforced diet; exercise and weight loss are not realistic due to his physical issues and comorbidities Plan Follow up in 3 months Orders: Orders Comprehensive [place]. Panel Fast 3 Months E78.00 - Pure hypercholesterolemia, unspecified Microalbumin, Random (w Creat) 3 Months E11.9 - Type 2 diabetes mellitus without complications Hemoglobin A1c 3 Months E11.9 - Type 2 diabetes mellitus without complications Lipid Panel 3 Months E78.00 - Pure hypercholesterolemia, unspecified Complete Blood Count Auto Diff 3 Months D64.9 - Anemia, unspecified TSH reflex Free T4 3 Months E78.00 - Pure hypercholesterolemia, unspecified UA CC w/rflx Micro + Cult 3 Months R30.0 - Dysuria Vitamin D 25-OH Total 3 Months E55.9 - Vitamin D deficiency, unspecified Vitamin B12 and Folate 3 Months E53.8 - Deficiency of other specified B group vitamins Coding Level of Care Code Est Pt Level 4 (76794) Diagnoses Type 2 diabetes mellitus with microalbuminuria E11.29; R80.9 Pure hypercholesterolemia E78.00 Benign essential hypertension I10 Frequent diarrhea R19.7 Lymphedema I89.0 Onychomycosis B35.1 Gait instability R26.81 Frequent falls R29.6 Lumbar degenerative disc disease M51.36 Neuropathy G62.9 Degenerative disc disease, cervical M50.30 Nonintractable headache, unspecified chronicity pattern, unspecified headache type R51.9 Headache chronicity pattern: unspecified pattern Headache type: unspecified Vitamin B12 deficiency E53.8 Vitamin D deficiency E55.9 Insomnia, unspecified type G47.00 Insomnia type: unspecified Posttraumatic stress disorder F43.10 Depression, unspecified depression type F32.9 Depression Type: unspecified Smoker F17.200 Obesity (BMI 30-39.9) E66.9
[2024-05-14 14:57] VITALS: BP 118/62; PULSE 89; O2SAT 96; BMI 32.4
== END 2024-05-14 15:48 | disposition home or self-care (01) ==
PROVIDERS: PCP Internal Medicine; Visit Provider Internal Medicine
DX: E11.29 Type 2 diabetes mellitus with other diabetic kidney complication (principal); R80.9 Proteinuria, unspecified; E78.00 Pure hypercholesterolemia, unspecified; I10 Essential (primary) hypertension; R19.7 Diarrhea, unspecified; I89.0 Lymphedema, not elsewhere classified; B35.1 Tinea unguium; R26.81 Unsteadiness on feet; R29.6 Repeated falls; M51.36 Other intervertebral disc degeneration, lumbar region; G62.9 Polyneuropathy, unspecified; M50.30 Other cervical disc degeneration, unspecified cervical region
CPT/HCPCS: 99214

== ENCOUNTER 2024-08-20 14:47 | Outpatient (REF) | payer MEDICARE, SELFPAY ==
[2024-08-20 15:04] LABS: MANUAL DIFF FLAG NO
[2024-08-20 15:19] LABS: Appearance Urine Clear; Color Urine Yellow; Glucose Urine UA >=1000 mg/dL (Negative); Leukocyte Esterase Urine Negative (Negative); Nitrite Urine Negative (Negative); PH 6.5 (5.0-9.0); UMIC TRIGGER UACC YES; Urine Blood Negative (Negative); Urine Ketones Negative (Negative); Urine Protein Negative (Neg-Trace)
[2024-08-20 15:19] LABS: Basophils Absolute Auto 0.1 X10*3/uL (0.0-0.2); Eosinophils Absolute Auto 0.3 X10*3/uL (0.0-0.4); Eosinophils Percent Auto 2.8 % (0-4); Hematocrit 41.9 % (42.0-52.0); Hemoglobin 14.8 g/dl (14.0-18.0); Imm Gran Abs Auto 0.04 X10*3/uL (0.00-0.03); Imm Gran Pct Auto 0.5 % (0.0-0.4); Lymphocytes Percent Auto 22.6 % (20-40); Mean Corpuscular HGB Conc 35.3 g/dl (31.0-36.0); Mean Corpuscular Volume 90.7 fL (80.0-98.0); Mean Platelet Volume 10.7 fL (9.4-12.4); Monocytes Absolute Auto 0.6 X10*3/uL (0.1-1.2); Monocytes Percent Auto 6.5 % (2-11); Neutrophils Absolute Auto 5.9 x10*3/uL (2.0-8.3); Neutrophils Percent Auto 66.6 % (45-73); Platelet Count 173 X10*3/uL (160-400); Red Blood Count 4.62 X10*6/uL (4.60-5.80); Red Cell Distribution Width 13.2 % (11.0-16.0); White Blood Count 8.8 X10*3/uL (4.8-10.8)
[2024-08-20 15:21] LABS: Estimated Average Glucose 174 mg/dL; Hemoglobin A1C 226.4405 umol/L; Hemoglobin A1c % 7.7 % (<6.0); Total Hemoglobin (HGBA1C) 3708.5633 umol/L
[2024-08-20 15:24] LABS: Bacteria Urine None Seen (None Seen); Hyaline Casts Urine 0-2 /LPF (0-2); RBC Urine 0-2 /HPF (0-2); Squamous Epithelial Cell Urine 0-2 /HPF (0-2); WBC Urine 0-5 /HPF (0-5)
[2024-08-20 16:09] LABS: Folate 13.2 ng/mL (> or = 4.0); Vitamin B12 492 pg/mL (200-900)
[2024-08-20 18:07] LABS: Creatinine Urine 86.79 mg/dL; Microalbum/Creatinine Ratio Ur 13.8 ug/mg cr (<30)
[2024-08-20 18:08] LABS: Alanine Aminotransferase 16 U/L (0-40); Albumin Level 3.9 g/dL (3.5-5.0); Alkaline Phosphatase 50 U/L (39-117); Anion Gap 11 (12-20); Aspartate Amino Transferase 15 U/L (5-37); Blood Urea Nitrogen 16 mg/dL (9-16); Calcium 9.3 mg/dL (8.4-10.2); Carbon Dioxide 23 mmol/L (22-29); Chloride 110 mmol/L (96-108); Cholesterol 150 mg/dL (<200); Estimated Glomerular Filt Rate > 60; Glucose Fasting 181 mg/dL (60-99); HDL Cholesterol 43 mg/dL (>40); LDL Cholesterol Calculated 83 mg/dL (<100); Potassium 3.4 mmol/L (3.3-5.1); Sodium 141 mmol/L (135-145); TSH reflex Free T4 1.12 uIU/mL (0.32-4.0); Total Protein 6.9 g/dL (6.5-8.0); Triglycerides 123 mg/dL (<150)
== END 2024-08-20 14:48 | disposition home or self-care (01) ==
LOC: HO.LAB 14:47
PROVIDERS: PCP Internal Medicine; Visit Provider Internal Medicine
DX: E11.9 Type 2 diabetes mellitus without complications (principal); E78.00 Pure hypercholesterolemia, unspecified; E55.9 Vitamin D deficiency, unspecified; E53.8 Deficiency of other specified B group vitamins; D64.9 Anemia, unspecified
CPT/HCPCS: 36415; 80053; 80061; 81001; 82043; 82306; 82570; 82607; 82746; 83036; 84443; 85025

== ENCOUNTER 2024-08-27 14:29 | Outpatient (AMB) | payer MEDICARE, SELFPAY ==
[2024-08-27 14:31] VITALS: BP 120/82; PULSE 100; O2SAT 96; BMI 33.2
--- NOTE | 2024-08-27 14:31 | MHC.PC.OV ---
Vital Signs 08/27/24 14:31 Height 6 ft 2 in Weight 258 lb 4 oz BMI 33.2 BP 120/82 Blood Pressure Location Lt brachial Position Sitting Pulse 100 Pulse Source Pulse Oximeter Pulse Oximetry (%) 96 Oxygen Delivery Method Room Air Intake Visit Reasons: 3mth f/u Mail Rider Required: No Accompanied by: Self / Same As Patient Allergies No Known Allergies [No Known Allergies*] Allergy (Verified 08/27/24 15:06) Medication List - Last Reconciled 08/27/24 by Mode Wiggins MD [ADULT PULL-UPS As directed] ammonium lactate 12% 1 appl topical DAILY aspirin 81 mg PO DAILY blood sugar diagnostic (FreeStyle Lite Strips) 1 strip miscellaneous TID cholecalciferol (vitamin D3) 25 mcg PO DAILY doxycycline monohydrate 100 mg PO BID 10 days gabapentin 300 mg PO TID insulin aspart U-100 (Novolog FlexPen U-100 Insulin aspart) 12 units SQ TID with meals and 10 units SQ with snacks insulin glargine-yfgn (Semglee (insulin glargine-yfgn) Pen) 24 units subcut BID lancets (FreeStyle Lancets) 1 gauge topical TID loperamide (Imodium A-D) 2 mg PO Q6H PRN lovastatin 40 mg PO DAILY 90 days melatonin 1 mg PO BEDTIME PRN metformin 1,000 mg PO BID 90 days metoprolol tartrate 25 mg PO BID 90 days mirtazapine 30 mg PO BEDTIME peg-electrolyte soln 420 gram 240 mL PO ONCE PRN 1 day semaglutide 1 mg subcut QWEEK sertraline 150 mg PO DAILY topiramate 25 mg PO BID vitamin B complex 1 cap PO DAILY white petrolatum-mineral oil 1 ea topical DAILY Tobacco use date assessed: 08/27/24 Fall risk assessment: 2 + Falls in past year Last assessed Fall Risk: 08/27/24 Dental Screening Dental Screen Date: 08/27/24 Did you have a dental visit in the last 12 months?: No Did you have a dental problem in the last 6 months where you did not have access to dental care?: No Was dental information given to patient?: No HPI 3mth f/u HPI Details Patient comes in today for his follow-up visit States that he feels okay He denies any headaches or dizziness Denies any chest pains, no increased shortness of breath No nausea /vomiting, no abdominal pain No change in bowel habits noted Needs his Gabapentin Rx refilled He had his follow-up labs done last week - to discuss his results [facility] Medical History Type 2 diabetes mellitus with microalbuminuria Benign paroxysmal vertigo Obesity due to excess calories Keratotic lesion Irritable bowel Obesity (BMI 30-39.9) Smoker Depression Posttraumatic stress disorder Insomnia Postprandial diarrhea Vitamin B12 deficiency Vitamin D deficiency Nonintractable headache Degenerative disc disease, cervical Neuropathy Lumbar degenerative disc disease Benign essential hypertension Pure hypercholesterolemia Diabetes mellitus HTN (hypertension) Diabetes Chronic diarrhea Surgical History History of colonoscopy History of esophagogastroduodenoscopy (EGD) History of lumbar surgery History of surgery History of cervical spinal surgery History of laparoscopic cholecystectomy Family History Father Diabetes CVD (cardiovascular disease) Mother Stroke Social History Household Members: Children Household Members Other:: lives with his son Housing: Apartment Alcohol intake: current Alcohol intake frequency: holidays/special occasions only Patient Tobacco Use Status: Current everyday Tobacco user Tobacco use type: Cigarette Cigarette Packs Per Day: 0.5 Cigarettes Per Day: 10 e-Cigarette/Vaping Use: Never Used Second Hand Smoke Exposure: Yes service: Yes Current occupational status: retired Cognitive needs: Yes (cane) Hearing needs: No Vision needs: Yes (reading glasses) Questionnaire PHQ-9 Over the last 2 weeks, how often have you been bothered by any of the following problems? 1. Little interest or pleasure in doing things: not at all 2. Feeling down, depressed, or hopeless: not at all 3. Trouble falling or staying asleep, or sleeping too much: not at all 4. Feeling tired or having little energy: not at all 5. Poor appetite or overeating: not at all 6. Feeling bad about yourself - or that you are a failure or have let yourself or your family down: not at all 7. Trouble concentrating on things, such as reading the newspaper or watching television: not at all 8. Moving or speaking so slowly that other people could have noticed. Or the opposite - being so fidgety or restless that you have been moving around a lot more than usual: not at all 9. Thoughts that you would be better off or of hurting yourself in some way: not at all Total score: 0 Depression Screening Interpretation: Positive Depression Screening Follow-up: Existing condition and In treatment Depression Screening Done: Yes 47341 - PHQ-9 Billing: Yes Source: Developed by Drs. Thom Ferrera, Aster Piedra, Vinnie Lizarraga and colleagues, with an educational gladys from [employer]. Thrive Questionnaire Date Thrive assessed: 08/27/24 I am a: Patient What is your living situation today?: I have a steady place to live Within the past 12 months, did the food you bought not last and you didn't have the money to get more?: Never true Within the past 12 months, did you worry whether your food would run out before you got money to buy more?: Never true Do you have trouble paying for medicines?: No Do you have trouble getting transportation to medical appointments?: No Do you have trouble paying your heating and electricity bill?: No Do you have trouble taking care of your child, family member or friend?: No Do you have trouble with day-to-day activities such as bathing, preparing meals, shopping, managing finances, etc.?: No Are you currently unemployed and looking for a job?: No Are you interested in more education?: No Please select the resources that you would like help with: None Currently or been in a relationship where the following occur: No concerns reported THRIVE Score: 0 AUDIT C Alcohol Use Questionnaire (AUDIT-C) 1. How often do you have a drink containing alcohol?: Monthly or less 2. How many drinks containing alcohol do you have on a typical day when you are drinking?: 1 or 2 3. How often do you have six or more drinks on one occasion?: Never Total Score: 1 Score Reviewed/Action Taken: Yes SHERYL-7 AMB Questionnaire SHERYL-7 Date SHERYL - 7 assessed: 08/27/24 Feeling nervous, anxious, or on edge: 0 = Not at all Not being able to stop or control worryin = Not at all Worrying too much about different things: 0 = Not at all Trouble relaxin = Not at all Being so restless that it is hard to sit still: 0 = Not at all Becoming easily annoyed or irritable: 0 = Not at all Feeling afraid as if something awful might happen: 0 = Not at all Total SHERYL-7 score (0-4 normal; 5-9 mild; 10-14 moderate; 15-21 severe): 0 Source: Developed by Drs. Thom Ferrera, Aster Piedra, Vinnie Lizarraga and colleagues, with an educational gladys from [employer]. Review of Systems Const Denies chills, Reports difficulty sleeping, Reports fatigue, Denies fever(s) and Denies headache(s) ENT Denies dysphagia, Denies dizziness, Denies otalgia, Denies headache(s), Reports neck pain (chronic), Denies odynophagia, Reports tinnitus (on and off) and Denies sore throat Card Denies chest pain, Denies palpitations and Reports dyspnea on exertion (mild) Resp Denies cough, Reports dyspnea on exertion (mild) and Denies wheezing GI Denies abdominal pain, Denies constipation, Denies dysphagia, Denies heartburn, Reports fecal incontinence, Reports diarrhea (frequent/recurrent), Reports loose stools, Denies nausea, Denies odynophagia and Denies vomiting Denies dysuria, Reports nocturia, Reports urinary frequency and Reports urinary incontinence Musc Reports abnormal gait (unsteady), Reports back pain (over the lower back - chronic), Reports arthralgias (including over his left knee lately) and Reports neck pain (chronic) Skin/Breast Details: (+) mild redness over the anterior aspect of both lower legs Reports rash (over both lower legs) and Denies unusual bruising Neuro Reports abnormal gait (unsteady), Denies dizziness and Denies headache(s) Psych Reports anxiety and Reports depression Endo Reports fatigue and Denies palpitations Kuldeep/Lymph Details: frequent swelling of both legs Aller/Immun Denies wheezing Physical exam (Primary Care) Vital Signs: Last Vital Signs Pulse 100 08/27/24 14:31 BP 120/82 08/27/24 14:31 Pulse Ox 96 08/27/24 14:31 Oxygen Delivery Method Room Air 08/27/24 14:31 BMI result Body Mass Index 33.2 Tobacco/Smoking Status: Tobacco use Status Tobacco use date assessed 08/27/24 08/27/24 14:33 Patient Tobacco Use Status Current everyday Tobacco 08/27/24 14:33 Tobacco use type Cigarette 08/27/24 14:33 e-Cigarette/Vaping Use Never Used 08/27/24 14:33 PHQ-9: PHQ-9 Score PHQ-9: Total score 0 08/27/24 15:15 Depression Screening Interpretation: Positive Depression Screening Follow-up: Existing condition and In treatment Thrive Assessment: Date of Thrive Assessment Date Thrive assessed 08/27/24 08/27/24 14:33 Currently or been in a relationship where the following occur: No concerns reported Const General: no acute distress and alert HENMT Ears: TM's normal bilaterally and EAC's normal Throat: Yes posterior oropharynx normal and Yes tonsils normal (no TP congestion noted) Neck Neck: Yes no lymphadenopathy and Yes supple Thyroid: Thyroid normal Resp Auscultation: clear to auscultation bilaterally, no rales and no wheezes Cardio Rate: regular rate Rhythm: regular rhythm Heart sounds: no murmurs GI Palpation (GI): Soft to palpation and nontender Auscultation: normal bowel sounds General: Yes no CVA tenderness Back/Spine/Pelvis Back: no CVA tenderness Thoracic/Lumbar Spine: lumbar spinal tenderness Skin Other: increased erythema over the anterior aspect of both lower legs, which are slightly warm to touch; there are also a few scattered scaling rash over the lower legs anteriorly but no open sores are noted at this time Extrem Other: (+) edema noted over both lower legs and feet General: Yes full ROM, No cyanosis and Yes edema (2+ bipedal edema) Results Reviewed Results Reviewed: Laboratory Tests 08/20/24 08/20/24 12:20 15:02 WBC 8.8 Hgb 14.8 Hct 41.9 L Plt Count 173 Sodium 141 Potassium 3.4 Creatinine 0.84 Estimated GFR > 60 Fasting Glucose 181 H Hemoglobin A1c % 7.7 H Calcium 9.3 AST 15 ALT 16 Triglycerides 123 Cholesterol 150 LDL Cholesterol, Calc 83 HDL Cholesterol 43 Vitamin B12 492 25-OH Vitamin D Total 33.0 TSH 1.12 Ur Specific Ama 1.020 Urine Protein Negative Urine Glucose (UA) >=1000 H Urine Blood Negative Urine Nitrite Negative Ur Leukocyte Esterase Negative Microalb/Creat Ratio 13.8 Coding Level of Care Code Est Pt Level 4 (33412) Complex EM visit Add On G2211 Diagnoses Type 2 diabetes mellitus with microalbuminuria E11.29; R80.9 Pure hypercholesterolemia E78.00 Benign essential hypertension I10 Frequent diarrhea R19.7 Lymphedema I89.0 Gait instability R26.81 Neuropathy G62.9 Degeneration of intervertebral disc of lumbar region with discogenic back pain M51.360 Disc-related pain type: discogenic back pain only Degenerative disc disease, cervical M50.30 Nonintractable headache, unspecified chronicity pattern, unspecified headache type R51.9 Headache type: unspecified Headache chronicity pattern: unspecified pattern Vitamin B12 deficiency E53.8 Vitamin D deficiency E55.9 Insomnia, unspecified type G47.00 Insomnia type: unspecified Posttraumatic stress disorder F43.10 Depression, unspecified depression type F32.9 Depression Type: unspecified Smoker F17.200 Obesity (BMI 30-39.9) E66.9 Assessment & Plan Assessment & Plan (1) Type 2 diabetes mellitus with microalbuminuria: Code(s): E11.29 - Type 2 diabetes mellitus with other diabetic kidney complication; R80.9 - Proteinuria, unspecified Category: Medical Plan: His HgbA1c was at 7.7% on his labs done last week (was previously at 9.5% a few months ago in March 2024) - goal is at least < 8.0% or 7.5% Reinforced diabetic diet Continue Metformin 1000 mg BID, Insulin Glargine (Semglee) 24 units BID and NovoLog 12 units TID with meals and 10 units with snacks; he is also on Ozempic 1 mg Q week He is seeing [facility] for [facility] of his diabetes and he is advised to continue following up with his technical support assistant as scheduled (2) Pure hypercholesterolemia: Code(s): E78.00 - Pure hypercholesterolemia, unspecified Category: Medical Plan: Results of his labs done last week reviewed and discussed with patient Reinforced low cholesterol diet Continue Lovastatin 40 mg QD Will recheck his labs and fasting lipids in 3 months for follow-up (3) Benign essential hypertension: Code(s): I10 - Essential (primary) hypertension Category: Medical Plan: Reinforced low sodium diet - goal is systolic BP of at least 130 mm or less Continue Metoprolol 25 mg BID Follow up with cardiology as scheduled (4) Frequent diarrhea: Code(s): R19.7 - Diarrhea, unspecified Category: Medical Plan: This is possibly due to his IBS; patient is also S/P cholecystectomy so some of his symptoms may be postcholecystectomy diarrhea He had EGD done on 08/23/22 - EGD revealed diffuse erythema with a nodular appearing mucosa in the gastric body. There are a few chronic appearing erosions in the pre-pyloric area as well as patchy erythema in the duodenal bulb with also a 10 mm benign-appearing nodule in the apex of the bulb. Biopsies were obtained from the gastric antrum and body as well as from the duodenal bulb - biopsies came back mostly benign are negative for H pylori and celiac disease and showed only changes of chronic active duodenitis Follow-up with GI as scheduled (5) Lymphedema: Code(s): I89.0 - Lymphedema, not elsewhere classified Category: Medical Plan: Chronic, involving both lower extremities Patient is reminded to keep his legs elevated as often as he can to help minimize his swelling Will consider referral to vascular surgery for further evaluation and management if his symptoms persist - states that [facility] actually thinking about referring him to [facility] but for [facility] to cover [facility] visit, the referral has to come from them (6) Gait instability: Code(s): R26.81 - Unsteadiness on feet Category: Medical Plan: This is most likely multifactorial and is at least partially contributed to by his lumbar spine spine degenerative disc disease as well as his neuropathy He was referred to and seen by Neurology, who recommended physical therapy but he declined States that he has been to physical therapy in the past with only temporary minimal improvement of his gait issues and he recalls that he had to pay a co-pay every time he goes to them He is advised to consider it again and perhaps they can do home physical therapy instead; have also advised him to speak to his [facility] doctor about this and maybe they can offer him some services that are covered by the [facility] system (7) Neuropathy: Code(s): G62.9 - Polyneuropathy, unspecified Category: Medical Plan: He was on Amitriptyline in the past to help with his leg pain and symptoms but this was stopped by psychiatry when he was started on Mirtazapine at bedtime for his depression and PTSD Patient states that he will consider going back on his Amitriptyline if his leg and feet pain gets significantly worse again (8) Lumbar degenerative disc disease: Code(s): M51.36 - Other intervertebral disc degeneration, lumbar region Category: Medical Qualifiers: Disc-related pain type: discogenic back pain only Qualified Code(s): M51.360 - Other intervertebral disc degeneration, lumbar region with discogenic back pain only Plan: Reinforced activity and weight-lifting restrictions Continue Gabapentin 300 mg TID and Cyclobenzaprine 10 mg TID PRN (9) Degenerative disc disease, cervical: Code(s): M50.30 - Other cervical disc degeneration, unspecified cervical region Category: Medical Plan: S/P cervical spine surgery on 12/05/[address] Faye with improvement of symptoms Follow up with neurosurgery as scheduled or as needed (10) Nonintractable headache: Code(s): R51.9 - Headache, unspecified Category: Medical Qualifiers: Headache type: unspecified Headache chronicity pattern: unspecified pattern Qualified Code(s): R51.9 - Headache, unspecified Plan: CT head done last year came out negative Continue Topiramate 50 mg BID for headache prophylaxis - he has been doing well on Rx for the past few months (11) Vitamin B12 deficiency: Code(s): E53.8 - Deficiency of other specified B group vitamins Category: Medical Plan: Continue Vitamin B12 1000 mcg QD (12) Vitamin D deficiency: Code(s): E55.9 - Vitamin D deficiency, unspecified Category: Medical Plan: Continue Vitamin D3 2000 units QD (13) Insomnia: Code(s): G47.00 - Insomnia, unspecified Category: Medical Qualifiers: Insomnia type: unspecified Qualified Code(s): G47.00 - Insomnia, unspecified Plan: Sleep hygiene reinforced She was on Zaleplon 10 mg Q HS PRN previously but is currently only on Melatonin 1 mg Q HS and seems to be doing okay on this Mirtazapine also helps with his sleep at night (14) Posttraumatic stress disorder: Code(s): F43.10 - Post-traumatic stress disorder, unspecified Category: Medical Plan: Continue Sertraline 100 mg 1.5 tablets daily and Mirtazapine 30 mg QD Follow up with psychiatry (at the [facility]) as scheduled (15) Depression: Code(s): F32.9 - Major depressive disorder, single episode, unspecified Category: Medical Qualifiers: Depression Type: unspecified Qualified Code(s): F32.9 - Major depressive disorder, single episode, unspecified Plan: Continue Mirtazapine 30 mg QD and Sertraline 100 mg 1.5 tablets QD (16) Smoker: Code(s): F17.200 - Nicotine dependence, unspecified, uncomplicated Category: Social Hx Plan: Counseled again on smoking cessation (17) Obesity (BMI 30-39.9): Code(s): E66.9 - Obesity, unspecified Category: Medical Plan: Reinforced diet; exercise and weight loss are not realistic due to his physical issues and comorbidities Plan Follow up in 3 months Orders: Orders Complete Blood Count Auto Diff 3 Months D64.9 - Anemia, unspecified Hemoglobin A1c 3 Months E11.9 - Type 2 diabetes mellitus without complications Vitamin D 25-OH Total 3 Months E55.9 - Vitamin D deficiency, unspecified Vitamin B12 and Folate 3 Months E53.8 - Deficiency of other specified B group vitamins Microalbumin, Random (w Creat) 3 Months E11.9 - Type 2 diabetes mellitus without complications TSH reflex Free T4 3 Months E78.00 - Pure hypercholesterolemia, unspecified UA CC w/rflx Micro + Cult 3 Months R30.0 - Dysuria Lipid Panel 3 Months E78.00 - Pure hypercholesterolemia, unspecified Comprehensive [place]. Panel Fast 3 Months E78.00 - Pure hypercholesterolemia, unspecified Medications: Changed From gabapentin 300 mg PO TID 90 caps 3RF To gabapentin 300 mg PO TID 90 days 270 caps 1RF
== END 2024-08-27 15:28 | disposition home or self-care (01) ==
PROVIDERS: PCP Internal Medicine; Visit Provider Internal Medicine
DX: E11.29 Type 2 diabetes mellitus with other diabetic kidney complication (principal); R80.9 Proteinuria, unspecified; E78.00 Pure hypercholesterolemia, unspecified; I10 Essential (primary) hypertension; R19.7 Diarrhea, unspecified; I89.0 Lymphedema, not elsewhere classified; R26.81 Unsteadiness on feet; G62.9 Polyneuropathy, unspecified; M51.360 Other intervertebral disc degeneration, lumbar region with discogenic back pain only; M50.30 Other cervical disc degeneration, unspecified cervical region; R51.9 Headache, unspecified; E53.8 Deficiency of other specified B group vitamins

== ENCOUNTER → 2024-08-27 14:29 | Outpatient (BNVA) | payer MEDICARE, SELFPAY | PROVIDERS: PCP Internal Medicine; Visit Provider Internal Medicine | DX: E11.29 Type 2 diabetes mellitus with other diabetic kidney complication (principal); R80.9 Proteinuria, unspecified; E78.00 Pure hypercholesterolemia, unspecified; I10 Essential (primary) hypertension; R19.7 Diarrhea, unspecified; R26.81 Unsteadiness on feet; I89.0 Lymphedema, not elsewhere classified; G62.9 Polyneuropathy, unspecified; M51.360 Other intervertebral disc degeneration, lumbar region with discogenic back pain only; M50.30 Other cervical disc degeneration, unspecified cervical region; R51.9 Headache, unspecified; E53.8 Deficiency of other specified B group vitamins; E55.9 Vitamin D deficiency, unspecified; F43.10 Post-traumatic stress disorder, unspecified; F32.9 Major depressive disorder, single episode, unspecified; E66.9 Obesity, unspecified; G47.00 Insomnia, unspecified; F17.200 Nicotine dependence, unspecified, uncomplicated; Z71.6 Tobacco abuse counseling; Z71.3 Dietary counseling and surveillance | CPT/HCPCS: 96127; 99212 ==

== ENCOUNTER 2025-05-12 07:54 | Emergency (ER) | payer MEDICARE, SELFPAY ==
--- NOTE | ~2025-05-12 | XR_ITS ---
Exam: 2 view bilateral knees TECHNIQUE: AP and lateral view lower extremity joint INDICATION: Fall with abrasions Prior: None FINDINGS: Right knee: There is moderate narrowing of the medial joint space. There is also narrowing of the patellofemoral joint. There are large patellar trochlear marginal osteophytes. There are small marginal osteophytes along the medial tibial plateau. Faint calcific density is visualized in the lateral joint line. There is a joint effusion. Left knee: There is severe narrowing of the lateral joint space. Small marginal osteophytes are present along the tibial plateau. Moderate marginal osteophytes are present at the patellofemoral joint. There is a joint effusion. 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 Joint effusion. Left knee: Severe osteoarthritis with a joint effusion. Electronically signed by: Robert Sánchez MD 05/12/2025 11:00 AM EDT
--- NOTE | ~2025-05-12 | XR_ITS ---
EXAMINATION: XR SHOULDER, RIGHT CLINICAL INFORMATION: fall, pain COMPARISON: None available. TECHNIQUE: Three views of the right shoulder. FINDINGS: Normal bone mineralization. No fracture, dislocation, or suspicious bone lesion. Normal alignment. The glenohumeral joint demonstrates mild to moderate degenerative arthritis with undersurface spurring. There appears to have been prior subacromial decompression with resection of the distal clavicle/AC joint. There is some residual superior and undersurface spurring. There is a type I acromion. Mild undersurface spurring. The subacromial space is preserved. Remainder of the soft tissue and bony structures appear normal. A partially imaged inferior cervical fusion is noted. XR/XR shoulder RT min 2V IMPRESSION: 1. No acute bony abnormalities identified. 2. Changes of prior subacromial decompression likely present. 3. Mild to moderate osteoarthrosis of the glenohumeral joint. 4. Mild residual superior and undersurface spurring of the AC joint. Electronically signed by: Yogesh Cohn MD 05/12/2025 12:48 PM EDT
--- NOTE | ~2025-05-12 | CT_ITS ---
EXAMINATION: CT HEAD AND FACIAL BONES WITHOUT CONTRAST CLINICAL INFORMATION: Fall, on ASA, nose abrasion COMPARISON: CT head 12/29/2021. MRI cervical spine 12/05/2014. TECHNIQUE: Contiguous axial imaging was performed from the skull base to vertex, as well as the maxillofacial bones/mandible without intravenous administration of contrast. Multiplanar reformatted imaging was constructed from the axial data set. This CT examination was performed using dose optimization techniques as appropriate, variously including the following: *Automated exposure control *Adjustment of mA and/or kV according to patient size (this includes techniques or standardized protocols for targeted exams where dose is matched to indication/reason for exam; i.e. extremities or head) *Use of iterative reconstruction technique CT HEAD: Mild motion degradation, limiting sensitivity of the exam. There is no evidence of intracranial hemorrhage or extra-axial fluid collection. There is no mass effect, or edema. No CT evidence of acute territorial infarct. Ventricles, sulci, and cisterns are normal in size and configuration for patient age. No hydrocephalus. No midline shift. Negative hyperdense MCA sign. Negative insular ribbon sign. Moderate degree of supratentorial white matter hypodensity in keeping with small vessel ischemic changes. Normal pituitary. Globes and orbital contents image normally. Orbits appear intact. There are bilateral lens replacements present. No extracranial soft tissue abnormalities. The calvarium and skull base are intact without fracture. CT MAXILLOFACIAL BONES: The mandible is intact without fracture. The TM joints are normally oriented with mild degenerative arthritis. The nasal bones, nasal process, maxilla, orbits, zygomatic arches, pterygoid plates, and sphenoid bone are intact without fracture. Right nasal septal deviation with a small rightward spur. Paranasal sinuses are normally pneumatized throughout. No paranasal sinus fractures. The mastoids and tympanic cavities are normally aerated. Imaged maxillofacial/neck soft tissues demonstrate a right superficial parotid mass measuring 2.0 x 1.5 x 2.5 cm. This was not included in the [id number] on the prior examination. It was present in 2014 on the cervical MRI and has minimally increased in size (previously measuring 1.[address]/CT facial bones wo IV con IMPRESSION: 1. No acute intracranial abnormalities. 2. No definitive maxillofacial or mandibular fracture identified. The nasal bones appear grossly intact. Orbits appear intact. 3. 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 This was present in 2015 on a cervical MRI and has only minimally increased in size supporting a benign etiology. Differential includes Wharthin tumor, benign mixed tumor, or possibly intraparotid lymph node. Electronically signed by: Yogesh Cohn MD 05/12/2025 10:24 AM EDT
--- NOTE | ~2025-05-12 | CT_ITS ---
EXAMINATION: CT HEAD AND FACIAL BONES WITHOUT CONTRAST CLINICAL INFORMATION: Fall, on ASA, nose abrasion COMPARISON: CT head 12/29/2021. MRI cervical spine 12/05/2014. TECHNIQUE: Contiguous axial imaging was performed from the skull base to vertex, as well as the maxillofacial bones/mandible without intravenous administration of contrast. Multiplanar reformatted imaging was constructed from the axial data set. This CT examination was performed using dose optimization techniques as appropriate, variously including the following: *Automated exposure control *Adjustment of mA and/or kV according to patient size (this includes techniques or standardized protocols for targeted exams where dose is matched to indication/reason for exam; i.e. extremities or head) *Use of iterative reconstruction technique CT HEAD: Mild motion degradation, limiting sensitivity of the exam. There is no evidence of intracranial hemorrhage or extra-axial fluid collection. There is no mass effect, or edema. No CT evidence of acute territorial infarct. Ventricles, sulci, and cisterns are normal in size and configuration for patient age. No hydrocephalus. No midline shift. Negative hyperdense MCA sign. Negative insular ribbon sign. Moderate degree of supratentorial white matter hypodensity in keeping with small vessel ischemic changes. Normal pituitary. Globes and orbital contents image normally. Orbits appear intact. There are bilateral lens replacements present. No extracranial soft tissue abnormalities. The calvarium and skull base are intact without fracture. CT MAXILLOFACIAL BONES: The mandible is intact without fracture. The TM joints are normally oriented with mild degenerative arthritis. The nasal bones, nasal process, maxilla, orbits, zygomatic arches, pterygoid plates, and sphenoid bone are intact without fracture. Right nasal septal deviation with a small rightward spur. Paranasal sinuses are normally pneumatized throughout. No paranasal sinus fractures. The mastoids and tympanic cavities are normally aerated. Imaged maxillofacial/neck soft tissues demonstrate a right superficial parotid mass measuring 2.0 x 1.5 x 2.5 cm. This was not included in the [id number] on the prior examination. It was present in 2014 on the cervical MRI and has minimally increased in size (previously measuring 1.[address]/CT head/brain wo IV con IMPRESSION: 1. No acute intracranial abnormalities. 2. No definitive maxillofacial or mandibular fracture identified. The nasal bones appear grossly intact. Orbits appear intact. 3. 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 This was present in 2015 on a cervical MRI and has only minimally increased in size supporting a benign etiology. Differential includes Wharthin tumor, benign mixed tumor, or possibly intraparotid lymph node. Electronically signed by: Yogesh Cohn MD 05/12/2025 10:24 AM EDT
--- NOTE | ~2025-05-12 | CT_ITS ---
EXAMINATION: CT CERVICAL SPINE WITHOUT CONTRAST CLINICAL INFORMATION: Fall with head strike, on ASA, neck pain. History of cervical spine surgery. COMPARISON: None available. Correlation made with MRI cervical 05/05/2015. TECHNIQUE: Spiral CT imaging of the cervical spine performed in axial plane without contrast. Multiplanar reformatted images were constructed from the axial data set. This CT examination was performed using dose optimization techniques as appropriate, variously including the following: *Automated exposure control *Adjustment of mA and/or kV according to patient size (this includes techniques or standardized protocols for targeted exams where dose is matched to indication/reason for exam; i.e. extremities or head) *Use of iterative reconstruction technique FINDINGS: CORONAL ALIGNMENT: -Trace right convex scoliosis, possibly positional. SAGITTAL ALIGNMENT: -Straightening of the normal lordosis. -There is a degenerative appearing 3 mm anterolisthesis of C4 on C5. Sagittal alignment is otherwise normal. C1-C2 AND CRANIOCERVICAL JUNCTION: -Intact and aligned normally. There are moderate degenerative changes in the atlantoaxial articulation. VERTEBRAL BODIES AND FACETS: -There has been anterior fusion and discectomy of C5-C7 with ventral plate and screw fixation. Hardware is intact, well seated, without loosening or periprosthetic fracture. There is bony fusion through the disc spaces. -There is no fracture, compression deformity, traumatic subluxation, or suspicious bone lesion. -Facets are normally aligned, with bilateral moderate degenerative hypertrophic facet changes. DISCS: -Moderate disc degeneration present C4-5. -Fusion of the C5-6 and C6-7 discs. -Otherwise mild degeneration of the disc spaces. CENTRAL CANAL: -No evidence of high-grade central canal narrowing or large disc herniation allowing for modality limitations. PREVERTEBRAL AND PARAVERTEBRAL SOFT TISSUES: -There is no prevertebral or paravertebral edema or abnormal fluid collection. -Moderate bilateral carotid bulb calcification. -Mild Global enlargement of the thyroid with mild heterogeneity. No dominant nodule seen. -No lymphadenopathy or mass within the neck. LUNG APICES: -Clear bilaterally. No pneumothorax. CT/CT cervical spine wo IV con IMPRESSION: 1. No CT evidence of acute cervical spine fracture or injury. 2. Intact anterior fusion of C5-6 and C6-7. 3. Moderate degenerative spondylosis of the cervical spine. Electronically signed by: Yogesh Cohn MD 05/12/2025 10:11 AM EDT RP
--- OUTSIDE RECORDS SUMMARY | 2025-05-12 03:56 | XMS_ITS | Continuity of Care Document ---
Author Name [facility] Organization [facility] Care Team Providers Care Behavioral Analyst Name Role Phone [facility] Unavailable Unavailable Problems Combined list of problems from Department of Defense and Veterans Affairs facilities. It does not include entries that were removed or entered in error. Problem Status Onset Date Problem Type Date of Resolution Comments Source Actinic keratosis Active Condition [facility] CAD - Coronary Artery Disease ([facility] [id number]) Active Condition Aug 29, 2023 Entered By: CHRISTI VALERIO Comment: Evident on LDCT [place] CAD - Coronary Artery Disease ([facility] [id number]) Active Condition March 20, 2025 Entered By: CHRISTI VALERIO Comment: 12/2024 Left cardiac cath nonobstructive CAD [place] Cardiac arrhythmia Active Condition [facility] Cellulitis and abscess of lower leg Active Condition [place] Chronic back pain Active Condition 2022 Entered By: CHRISTI VALERIO Comment: h/o multiple surgeries [place] Co-Management Active Condition May Entered By: CHRIS ROBERTO Comment: Dr. Wiggins [facility] [place] [facility] Depression ([facility] [id number]) Active Condition Nov 03, 2020 Entered By: DENISSE WORKMAN Comment: reviewedNov 27, 2021 Entered By: DENISSE WORKMAN Comment: reviewed [place] Diarrhea Active Condition [place] Essential hypertension Active Condition [facility] Headache Active Condition [place] Heart murmur [facility] History of cholecystectomy Active Condition Dec 21, 2022 Entered By: CHRISTI VALERIO Comment: laparoscopic 2011 [place] Hyperglycemia due to type 2 diabetes mellitus Active Condition May 30, 2020 Entered By: CHRIS ROBERTO Comment: Oct 2019 A1c 7.7Aug 2019 Entered By: CHRIS ROBERTO Comment: 2020 A1c Chio 9.1 [facility] [place] [facility] Hyperlipidemia Active Condition [facility] [place] [facility] Insomnia Active Condition [place] Neck pain Active Condition Dec 21 Entered By: CHRISTI VALERIO Comment: s/p surgery 11/2015 [place] Neuropathy due to type 2 diabetes mellitus Active Condition [facility] [place] [facility] Onychomycosis Active Condition [facility] Pain of left knee joint Active Condition [place] Paresthesia of hand Active Condition March 20, 2025 Entered By: CHRISTI VALERIO Comment: Right hand [place] Peripheral venous insufficiency Active Condition [place] Posttraumatic stress disorder Active Condition May 24, 2019 Entered By: [facility] Entered By: DENISSE WORKMAN Comment: reviewedNov 27, 2021 Entered By: DENISSE WORKMAN Comment: reviewed [facility] Pulmonary emphysema Active Condition Feb 09, 2025 Entered By: CHRISTI VALERIO Comment: LDCT 2024 Mild scattered bullous emphysematous changes [place] Tobacco user Active Condition [facility] Unsteady gait Active Condition [facility] Vitamin B12 Deficiency ([facility] [id number]) Active Condition [place] Vitamin D Deficiency ([facility] [id number]) Active Condition [place] Diagnosis: ICD-10-CM F32.9 Major depressive disorder, single episode, unspecified Active Diagnosis [place] Diagnosis: ICD-10-CM S81.802D Unspecified open wound, left lower leg, subsequent encounter Active Diagnosis [place] Diagnosis: ICD-10-CM L03.116 Cellulitis of left lower limb Active Diagnosis [place] Diagnosis: ICD-10-CM R26.89 Other abnormalities of gait and mobility Active Diagnosis [facility] Diagnosis: ICD-10-CM E11.65 Type 2 diabetes mellitus with hyperglycemia Active Diagnosis [place] Diagnosis: ICD-10-CM I10 Essential (primary) hypertension Active Diagnosis [place] Diagnosis: ICD-10-CM Z71.89 Other specified counseling Active Diagnosis [place] Diagnosis: ICD-10-CM F33.1 Major depressive disorder, recurrent, moderate Active Diagnosis [place] Diagnosis: ICD-10-CM E11.8 Type 2 diabetes mellitus with unspecified complications Active Diagnosis [place] Diagnosis: ICD-10-CM Z12.2 Encntr screen for malignant neoplasm of respiratory organs [facility] Diagnosis: ICD-10-CM E11.9 Type 2 diabetes mellitus without complications Active Diagnosis [facility] Diagnosis: ICD-10-CM L57.0 Actinic keratosis Active [facility] [place] [facility] Diagnosis: ICD-10-CM E11.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 mellitus with diabetic neuropathy, unsp Active Diagnosis [facility] ([id number]) Diagnosis: ICD-10-CM Z23 Encounter for immunization Active Diagnosis [place] Diagnosis: ICD-10-CM F32.A Depression, unspecified Active Diagnosis [place] Diagnosis: ICD-10-CM Z04.89 Encounter for examination and observation for oth reasons Active Diagnosis [facility] Diagnosis: ICD-10-CM Z13.6 Encounter for screening for cardiovascular disorders Active Diagnosis [facility] Diagnosis: ICD-10-CM I49.9 Cardiac arrhythmia, unspecified Active [facility] [place] [facility] Diagnosis: ICD-10-CM R01.1 Cardiac murmur, unspecified Active [facility] [place] [facility] Diagnosis: ICD-10-CM F43.10 Post-traumatic stress disorder, unspecified Active Diagnosis [place] Diagnosis: ICD-10-CM Z46.0 Encounter for fit/adjst of spectacles and contact lenses Active Diagnosis [facility] [place] [facility] Medications Combined list of outpatient medications from Department of Defense and Veterans Affairs facilities.Medications provided include 1) outpatient medications from the last 15 months, and 2) patient-reported medications. Medication Details Route Status Patient Instructions Prescription Expires Prescription Number Last Dispense Date Ordering Provider Order Date Order Qty Source AMMONIUM LACTATE 12% LOTION APPLY SMALL AMOUNT TOPICALL Y ONCE DAILY FOR DRY SKIN FOR DRY IRRITATE D SKIN TOPICA L ACTIVE 03/19/2026 [id number] CHRISTI AGUILA 2024 240 [place] AMMONIUM LACTATE 12% LOTION APPLY SMALL AMOUNT TOPICALL Y ONCE DAILY FOR DRY SKIN FOR DRY IRRITATE D SKIN TOPICA L DISCONT INUED 06/10/2025 [id number] TREVIN COFFEY EDDIE 2023 240 [place] ASPIRIN 81MG TAB,EC TAKE ONE TABLET BY MOUTH EVERY DAY ORAL ACTIVE FLORENCIO JACK 2016 [facility] ATORVASTATI N CA 80MG TAB TAKE ONE-HALF TABLET BY MOUTH ONCE DAILY FOR HIGH CHOLESTE ROL ORAL ACTIVE 03/19/2026 [id number] 5 CHRISTI AGUILA M 2024 45 [place] ATORVASTATI N CA 80MG TAB TAKE ONE-HALF TABLET BY MOUTH ONCE DAILY FOR HIGH CHOLESTE ROL ORAL DISCONT INUED 09/11/2025 [id number] 5 CHRISTI AGUILA M 2023 45 [place] CARBOXYMETH YLCELLULOSE NA 0.5% SOLN,OPH INSTILL 1 DROP INTO EACH EYE THREE TIMES DAILY NEEDED FOR DRY EYE OPHTHA LMIC ACTIVE 04/06/2026 [id number] CHRISTI AGUILA M 2024 15 [place] CEFADROXIL 500MG CAP TAKE ONE CAPSULE BY MOUTH TWICE DAILY FOR SKIN INFECTIO N ORAL ACTIVE 05/12/2025 [id number] 5 CHRISTI AGUILA M 2024 14 [place] CEFADROXIL 500MG CAP TAKE ONE CAPSULE BY MOUTH TWICE DAILY FOR SKIN INFECTIO N ORAL 01/20/2025 [id number] LIBAN ROBBINS 2024 14 [facility] CYANOCOBALA MIN TAB TAKE BY MOUTH ORAL ACTIVE Hafsa WORKMAN 2018 [place] DOXYCYCLINE HYCLATE 100MG TAB TAKE ONE TABLET BY MOUTH TWICE DAILY ORAL 06/05/2024 [id number] CHRISTI AGUILA M 2023 20 [place] DULOXETINE HCL 20MG CAP,EC TAKE TWO CAPSULES BY MOUTH ONCE DAILY DEPRESSI ON ORAL DISCONT INUED (EDIT) 06/26/2025 [id number] 4 Hafsa WORKMAN 2023 60 [place] DULOXETINE HCL 20MG CAP,EC TAKE ONE CAPSULE BY MOUTH ONCE DAILY FOR 7 DAYS, THEN TAKE TWO CAPSULES ONCE DAILY ORAL DISCONT INUED (EDIT) 06/27/2024 [id number] 4 Hafsa WORKMAN 2023 53 [place] DULOXETINE HCL 60MG CAP,EC TAKE ONE CAPSULE BY MOUTH ONCE DAILY DEPRESSI ON ORAL ACTIVE 01/26/2026 [id number] 5 Hafsa WORKMAN 2024 60 [place] DULOXETINE HCL 60MG CAP,EC TAKE ONE CAPSULE BY MOUTH ONCE DAILY DEPRESSI ON ORAL DISCONT INUED (EDIT) 10/07/2025 [id number] 5 Hafsa WORKMAN 2023 30 [place] DULOXETINE HCL 60MG CAP,EC TAKE ONE CAPSULE BY MOUTH ONCE DAILY DEPRESSI ON ORAL DISCONT INUED 07/28/2025 [id number] 4 Hafsa WORKMAN 2023 30 [place] GABAPENTIN 300MG CAP TAKE 1 CAPSULE BY MOUTH THREE TIMES A DAY ORAL ACTIVE FLORENCIO JACK 2016 [facility] [place] [facility] GLUCAGON 3MG INHL,NASAL, 1 PK SPRAY 1 INHALATI ON ONE NOSTRIL ONE TIME NEEDED FOR LOW BLOOD SUGAR NASAL 04/20/2025 [id number] 5 Remedios MIKE 2024 1 [place] GLUCOSE 4GM TAB,CHEW CHEW THREE TO FOUR TABLETS BY MOUTH NEEDED TO TREAT LOW BLOOD SUGAR BELOW 70 ORAL ACTIVE 03/19/2026 [id number] 5 Remedios MIKE 2024 40 [place] GLUCOSE 4GM TAB,CHEW CHEW THREE TO FOUR TABLETS BY MOUTH NEEDED TO TREAT LOW BLOOD SUGAR BELOW 70 ORAL DISCONT INUED 07/31/2025 [id number] 5 Remedios MIKE 2023 20 [place] GLUCOSE 4GM TAB,CHEW CHEW THREE TO FOUR TABLET(S ) BY MOUTH NEEDED TO TREAT LOW BLOOD SUGAR LESS THAN 70 ORAL DISCONT INUED 05/07/2025 [id number] 4 Remedios MIKE 2023 20 [place] INSULIN,ASP ART,HUMAN (EQV-NOVOLO G) 100 UNIT/ML,FLE XPEN,3ML INJECT 20 UNITS SUBCUTAN EOUSLY TWICE DAILY FOR DIABETES INJECT 15 MINUTES BEFORE MEALS SUBCUT ANEOUS ACTIVE 12/18/2025 [id number] 5 Remedios MIKE 2024 15 [place] INSULIN,ASP ART,HUMAN (EQV-NOVOLO G) 100 UNIT/ML,FLE XPEN,3ML INJECT 14 UNITS SUBCUTAN EOUSLY TWICE DAILY 15 MINUTES BEFORE MEALS SUBCUT ANEOUS DISCONT INUED BY PROVIDE R 10/07/2025 [id number] 4 Remedios MIKE 2023 10 [place] INSULIN,ASP ART,HUMAN (EQV-NOVOLO G) 100 UNIT/ML,FLE XPEN,3ML INJECT 14 UNITS SUBCUTAN EOUSLY TWICE DAILY 15 MINUTES BEFORE MEALS SUBCUT ANEOUS DISCONT INUED 10/07/2024 [id number] 4 Remedios MIKE 2022 10 [place] INSULIN,GLA RGINE,HUMAN 100 UNIT/ML INJ,SOLOSTA R,3ML INJECT 30 UNITS SUBCUTAN EOUSLY TWICE DAILY SUBCUT ANEOUS ACTIVE 12/18/2025 [id number] 5 Remedios MIKE 2024 20 [place] INSULIN,GLA RGINE-YFGN 100UNIT/ML INJ PEN,3ML INJECT 22 UNITS SUBCUTAN EOUSLY TWICE DAILY FOR DIABETES SUBCUT ANEOUS DISCONT INUED BY PROVIDE R 10/07/2025 [id number] 4 Remedios MIKE 2023 10 [place] INSULIN,GLA RGINE-YFGN 100UNIT/ML INJ PEN,3ML INJECT 22 UNITS SUBCUTAN EOUSLY TWICE DAILY FOR DIABETES SUBCUT ANEOUS DISCONT INUED 12/03/2024 [id number] 4 Remedios MIKE A 2023 10 [place] LOPERAMIDE HCL 2MG CAP TAKE ONE CAPSULE BY MOUTH THREE TIMES DAILY WITH MEALS FOR DIARRHEA ORAL ACTIVE 09/11/2025 [id number] 4 MORA AGUILAMARKYIMI Molina 2023 90 [place] MAGNESIUM OXIDE 420MG TAB TAKE ONE TABLET BY MOUTH ONCE DAILY FOR MAGNESIU M SUPPLEME NTATION ORAL ACTIVE 01/18/2026 [id number] 5 Tyler HOLT A 2024 100 [place] MAGNESIUM OXIDE 420MG TAB TAKE ONE TABLET BY MOUTH ONCE DAILY FOR MAGNESIU M SUPPLEME NTATION ORAL DISCONT INUED BY PROVIDE R 09/06/2025 [id number] CHRISTI AGUILA 2023 100 [place] MELATONIN 1MG CAP/TAB TAKE SIX CAPSULE/ TABLET BY MOUTH AT BEDTIME NEEDED INSOMNIA ORAL DISCONT INUED (EDIT) 10/07/2025 [id number] 5 Hafsa WORKMAN 2023 180 [place] MELATONIN 1MG CAP/TAB TAKE SIX CAPSULE/ TABLET BY MOUTH AT BEDTIME NEEDED INSOMNIA ORAL DISCONT INUED 06/26/2025 [id number] 4 Hafsa WORKMAN 2023 180 [place] MELATONIN 1MG CAP/TAB TAKE FOUR CAPSULE/ TABLETS BY MOUTH AT BEDTIME NEEDED INSOMNIA ORAL DISCONT INUED (EDIT) 12/17/2024 [id number] 4 Hafsa WORKMAN 2023 180 [place] MELATONIN 3MG CAP/TAB TAKE THREE CAPSULE/ TABLET BY MOUTH AT BEDTIME NEEDED INSOMNIA ORAL ACTIVE 03/10/2026 [id number] 5 Hafsa WORKMAN 2024 180 [place] METFORMIN HCL 1000MG TAB TAKE ONE TABLET BY MOUTH TWICE DAILY ORAL ACTIVE FLORENCIO JACK 2016 [facility] [place] [facility] METOPROLOL TARTRATE 25MG TAB TAKE ONE TABLET BY MOUTH EVERY DAY ORAL ACTIVE SUSHANT -MARILYNNFLORENCIO M 2016 [facility] [place] [facility] MIRTAZAPINE 30MG TAB TAKE ONE TABLET BY MOUTH AT BEDTIME FOR DEPRESSI ON/MOOD ORAL ACTIVE 01/26/2026 [id number] 5 Hafsa WORKMAN 2024 30 [place] MIRTAZAPINE 30MG TAB TAKE ONE TABLET BY MOUTH AT BEDTIME FOR DEPRESSI ON/MOOD ORAL DISCONT INUED 09/09/2025 [id number] 5 Hafsa WORKMAN 2023 30 [place] MIRTAZAPINE 30MG TAB TAKE ONE TABLET BY MOUTH AT BEDTIME FOR DEPRESSI ON/MOOD ORAL DISCONT INUED 09/17/2024 [id number] 4 Hafsa WORKMAN 2022 30 [place] MUPIROCIN 2% OINT,TOP APPLY THIN LAYER TOPICALL Y EVERY OTHER DAYS TOPICA L ACTIVE 06/10/2025 [id number] TREVIN COFFEY 2023 44 [place] NICOTINE 14MG/24HRS PATCH APPLY 1 PATCH TOPICALL Y ONCE DAILY (REMOVE OLD PATCH BEFORE APPLYING NEW PATCH) TOPICA L 12/26/2024 [id number] MATT,ANUS NAIK GANAPATI 2024 14 [place] NICOTINE POLACRILEX 2MG TAB,CHEWG GUM CHEW 1 PIECE BY MOUTH EVERY 2 HOURS NEEDED FOR SMOKING CESSATIO N ORAL 12/26/2024 [id number] 5 MATT,ANUS NAIK GANAPATI 2024 110 [place] POTASSIUM CHLORIDE 20MEQ TAB,SA (DISPERSIBL E) TAKE ONE TABLET BY MOUTH ONCE DAILY FOR LOW POTASSIU M ORAL 11/27/2024 [id number] 4 CHRISTI AGUILA M 2023 4 [place] SEMAGLUTIDE 0.25MG/0.37 5ML INJ,SOLN,PE N,3ML INJECT 0.5MG SUBCUTAN EOUSLY ONCE A WEEK FOR TYPE 2 DIABETES MELLITUS SUBCUT ANEOUS ACTIVE 02/18/2026 [id number] 5 Remedios MIKE 2024 3 [place] SEMAGLUTIDE 0.25MG/0.37 5ML INJ,SOLN,PE N,3ML INJECT 0.5MG SUBCUTAN EOUSLY ONCE A WEEK FOR TYPE 2 DIABETES MELLITUS SUBCUT ANEOUS DISCONT INUED BY PROVIDE R 10/29/2025 [id number] 5 CHRISTI AGUILA 2023 1 [place] SEMAGLUTIDE 0.25MG/0.37 5ML INJ,SOLN,PE N,3ML INJECT 0.5MG SUBCUTAN EOUSLY ONCE A WEEK FOR TYPE 2 DIABETES MELLITUS SUBCUT ANEOUS DISCONT INUED 10/07/2025 [id number] 4 Remedios MIKE 2023 1 [place] SEMAGLUTIDE 0.25MG/0.37 5ML INJ,SOLN,PE N,3ML INJECT 0.5MG SUBCUTAN EOUSLY ONCE A WEEK FOR TYPE 2 DIABETES MELLITUS SUBCUT ANEOUS DISCONT INUED 10/10/2024 [id number] Remedios MIKE 2023 1 [place] SEMAGLUTIDE 0.25MG/0.37 5ML INJ,SOLN,PE N,3ML INJECT 0.5MG SUBCUTAN EOUSLY ONCE A WEEK SUBCUT ANEOUS DISCONT INUED BY PROVIDE R 10/03/2024 [id number] 4 Remedios MIKE 2022 2 [place] SEMAGLUTIDE 1MG/0.75ML INJ,SOLN,PE N,3ML INJECT 1MG SUBCUTAN EOUSLY ONCE A WEEK FOR TYPE 2 DIABETES MELLITUS SUBCUT ANEOUS DISCONT INUED BY PROVIDE R 04/03/2025 [id number] Remedios MIKE A 2023 1 [place] SEMAGLUTIDE 2MG/0.75ML INJ,SOLN,PE N,3ML INJECT 2MG SUBCUTAN EOUSLY ONCE A WEEK SUBCUT ANEOUS DISCONT INUED BY PROVIDE R 07/31/2025 [id number] 4 Remedios MIKE 2023 1 [place] SERTRALINE HCL 100MG TAB TAKE ONE TABLET BY MOUTH AT BEDTIME FOR 14 DAYS, THEN TAKE ONE-HALF TABLET AT BEDTIME FOR 14 DAYS FOR MAJOR DEPRESSI VE DISORDER -FOR PTSD, MOOD ORAL DISCONT INUED BY PROVIDE R 06/27/2024 [id number] Hafsa WORKMAN 2023 21 [place] SERTRALINE HCL 100MG TAB TAKE ONE AND ONE-HALF TABLETS BY MOUTH AT BEDTIME -FOR PTSD, MOOD ORAL DISCONT INUED (EDIT) 09/17/2024 [id number] 4 Hafsa WORKMAN 2022 45 [place] TOPIRAMATE 25MG TAB TAKE ONE TABLET BY MOUTH TWICE DAILY NEEDED FOR ANXIETY/ HEADACHE (OFF LABEL FOR ANXIETY) ORAL ACTIVE 01/26/2026 [id number] 5 Hafsa WORKMAN 2024 60 [place] TOPIRAMATE 25MG TAB TAKE ONE TABLET BY MOUTH TWICE DAILY NEEDED FOR ANXIETY/ HEADACHE (OFF LABEL FOR ANXIETY) ORAL DISCONT INUED 06/26/2025 [id number] 5 Hafsa WORKMAN 2023 60 [place] TOPIRAMATE 25MG TAB TAKE ONE TABLET BY MOUTH TWICE DAILY NEEDED FOR ANXIETY/ HEADACHE (OFF LABEL FOR ANXIETY) ORAL DISCONT INUED 12/17/2024 [id number] 4 Hafsa WORKMAN 2023 60 [place] UREA 10% LOTION APPLY MODERATE AMOUNT TOPICALL Y TWICE DAILY FOR DRY SKIN *FOR EXTERNAL USE ONLY* TOPICA L ACTIVE 03/19/2026 [id number] 5 CHRISTI AGUILA 2024 240 [place] UREA 10% LOTION APPLY MODERATE AMOUNT TOPICALL Y TWICE DAILY FOR DRY SKIN *FOR EXTERNAL USE ONLY* TOPICA L DISCONT INUED (EDIT) 12/22/2025 [id number] LIBAN ROBBINS 2024 240 [facility] VITAMIN B COMPLEX CAP,ORAL TAKE BY MOUTH ORAL ACTIVE Hafsa WORKMAN 2018 [facility]ELD VITAMIN D3 (CHOLECALCI FEROL) TAB TAKE BY MOUTH ORAL ACTIVE Hafsa WORKMAN G 2018 [facility] Immunizations Combined list of available immunizations from the Department of Defense and Veterans Affairs facilities. 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 Status Comments Source INFLUENZA, HIGH-DOSE, TRIVALENT, PF 2023 NURYS BERNARD RYAN LEFT DELTO ID [id number] 135 complet ed [facility] COVID-19 (MODERNA), MRNA, LNP-S, PF, 50 MCG/0.5 ML (AGES 12+ YEARS) 2022 KAREN BONILLAL E R LEFT DELTO ID [id number] 312 complet ed Booster for Series, [facility] INFLUENZA, HIGH-DOSE, QUADRIVALENT 2022 KAREN BONILLAL E R LEFT [place] ID [id number] 197 complet ed [facility] PNEUMOCOCCAL CONJUGATE PCV20, POLYSACCHARID E [id number] CONJUGATE, ADJUVANT, PF 2022 NURYS BERNARD RYAN LEFT [place]TO ID [id number] 216 complet ed [facility] INFLUENZA, UNSPECIFIED FORMULATION 2021 88 complet ed HISTORICA L INFORMATI ON - S[facility] PNEUMOCOCCAL POLYSACCHARID E [id number] 2021 33 complet ed [facility] COVID-19 (MODERNA), MRNA, LNP-S, PF, 100 MCG OR 50 MCG DOSE 3 2021 207 complet ed MOD; [id number]; 2 [facility] INFLUENZA, UNSPECIFIED FORMULATION 2020 88 complet ed [facility] COVID-19 (MODERNA), MRNA, LNP-S, PF, 100 MCG/0.5 ML DOSE 2 2020 207 complet ed MOD; [id number]; 1 [place] COVID-19 (MODERNA), MRNA, LNP-S, PF, 100 MCG/0.5 ML DOSE 1 2020 207 complet ed MOD; [id number]; 1 [place] INFLUENZA, HIGH DOSE SEASONAL 2018 135 complet ed 02, Partner: [facility]. Administe red by: ADILENE ROBERTPITERKATHARINE ZACH (MAG=[phone]). Partner 3 Lot#: [id number] Mfr: [employer] P[employer]; Dosage: 0.5 [facility] [place] INFLUENZA, SEASONAL, INJECTABLE 2017 141 complet ed [facility] [place] INFLUENZA, SEASONAL, INJECTABLE 2016 141 complet ed [facility] [place] [facility] Results Combined list of recent chemistry, hematology and other laboratory results from Department of Defense and Veterans Affairs, ranging from 15 months to all on record, depending upon the facility. Order Name Results Value Reference Range Date Interpretation Specimen Comments Source HEMOGLOBI N A1C PANEL HEMOGLOBIN A1C/HEMOGLO BIN.TOTAL IN BLOOD BY [facility] PROTOCOL 8.7 4.0 - 5.6 02/17 H Specimen Type: BLOOD Comment: Values obtained from A1C measurement s can vary. For atypical A1C assays, a reported value of 7.0 could actually be between 6.72 and 7.28 if measured by a reference method. A reported value of 9.0 could actually be between 8.73 and 9.27. Ref: http://www. ngsp.org/[place] Pdata.asp Ordering Provider: SURINDER MIKE Report Released Date/Time: Feb 17, 2025 12:49 PM Reporting Lab: [facility] [place] [facility] [address] [facility] [address] Performing Lab: [facility] [place] [facility] [address] [facility] [id number] [facility] [place] [facility] MICROALBU MIN CREATININ E RATIO PANEL MICROALBUMI N/CREATININ E [MASS RATIO] IN URINE 17.0 mg/g 0 - 29.9 04/03 /2025 Specimen Type: URINE No comment entered. Ordering Provider: SURINDER MIKE Report Released Date/Time: Feb 17, 2025 12:49 PM Reporting Lab: [facility] [place] [facility] [address] [facility] [address] Performing Lab: [facility] [place] [address] [address] [facility] [place] [facility] MICROALBU MIN CREATININ E RATIO PANEL MICROALBUMI N [MASS/VOLUM E] IN URINE BY DETECTION LIMIT <= 1.0 MG/L 3.6 mg/dL 02/17 Specimen Type: URINE No comment entered. Ordering Provider: SURINDER MIKE Report Released Date/Time: Feb 17, 2025 12:49 PM Reporting Lab: [facility] [place] [address] [address] Performing Lab: [facility] [place] [facility] [address] [address] [facility] [place] [facility] MICROALBU MIN CREATININ E RATIO PANEL CREATININE [MASS/VOLUM E] IN URINE 211.81 mg/dL 02/17 Specimen Type: URINE No comment entered. Ordering Provider: SURINDER MIKE Report Released Date/Time: Feb 17, 2025 12:49 PM Reporting Lab: [facility] [place] [address] [address] Performing Lab: [facility] [place] [address] [address] [facility] [place] [facility] LIPID PANEL FASTING CHOLESTEROL [MASS/VOLUM E] IN SERUM OR PLASMA 140 mg/dL 02/17 Specimen Type: SERUM No comment entered. Ordering Provider: SURINDER MIKE Report Released Date/Time: Feb 17, 2025 12:49 PM Reporting Lab: [facility] [place] [address] [address] Performing Lab: [facility] [place] [address] [address] [facility] [place] [facility] LIPID PANEL FASTING TRIGLYCERID E [MASS/VOLUM E] IN SERUM OR PLASMA 108 mg/dL 0 - 150 02/17 Specimen Type: SERUM No comment entered. Ordering Provider: SURINDER MIKE Report Released Date/Time: Feb 17, 2025 12:49 PM Reporting [facility]: [facility] [place] [address] [address] Performing Lab: [facility] [place] [facility] [address] [facility] [address] [facility] [place] [facility] LIPID PANEL FASTING CHOLESTEROL IN LDL [MASS/VOLUM E] IN SERUM OR PLASMA BY CALCULATION 72 mg/dL 0 - 129 02/17 Specimen Type: SERUM No comment entered. Ordering Provider: SURINDER MIKE Report Released Date/Time: Feb 17, 2025 12:49 PM Reporting Lab: [facility] [place] [address] [address] Performing Lab: [facility] [place] [address] [address] [facility] [place] [facility] LIPID PANEL FASTING CHOLESTEROL .TOTAL/CHOL ESTEROL IN HDL [MASS RATIO] IN SERUM OR PLASMA 3.0 02/17 Specimen Type: SERUM No comment entered. Ordering Provider: SURINDER MIKE Report Released Date/Time: Feb 17, 2025 12:49 PM Reporting Lab: [facility] [place] [address] [address] Performing Lab: [facility] [place] [address] [address] [facility] [place] [facility] LIPID PANEL FASTING CHOLESTEROL IN HDL [MASS/VOLUM E] IN SERUM OR PLASMA 46 mg/dL 40 - 60 02/17 Specimen Type: SERUM No comment entered. Ordering Provider: SURINDER MIKE Report Released Date/Time: Feb 17, 2025 12:49 PM Reporting Lab: [facility] [place] [address] [address] Performing Lab: [facility] [place] [address] [address] [facility] [place] [facility] BASIC METABOLIC PANEL (fasting) UREA NITROGEN [MASS/VOLUM E] IN SERUM OR PLASMA 15 mg/dL 7 - 25 02/17 Specimen Type: SERUM No comment entered. Ordering Provider: SURINDER MIKE Report Released Date/Time: Feb 17, 2025 12:49 PM Reporting Lab: [facility] [place] [address] [address] Performing Lab: [facility] [place] [address] [address] [facility] [place] [facility] BASIC METABOLIC PANEL (fasting) GLUCOSE [MASS/VOLUM E] IN SERUM OR PLASMA 75 mg/dL 65 - 100 02/17 Specimen Type: SERUM No comment entered. Ordering Provider: SURINDER MIKE Report Released Date/Time: Feb 17, 2025 12:49 PM Reporting Lab: [facility] [place] [address] [address] Performing Lab: [facility] [place] [address] [address] [facility] [place] [facility] BASIC METABOLIC PANEL (fasting) SODIUM [MOLES/VOLU ME] IN SERUM OR PLASMA 134 mmol/L 135 - 145 02/17 L Specimen Type: SERUM No comment entered. Ordering Provider: SURINDER MIKE Report Released Date/Time: Feb 17, 2025 12:49 PM Reporting Lab: [facility] [place] [address] [address] Performing Lab: [facility] [place] [address] [address] [facility] [place] [facility] BASIC METABOLIC PANEL (fasting) POTASSIUM [MOLES/VOLU ME] IN SERUM OR PLASMA 3.9 mmol/L 3.5 - 5.0 02/17 Specimen Type: SERUM No comment entered. Ordering Provider: SURINDER MIKE Report Released Date/Time: Feb 17, 2025 12:49 PM Reporting Lab: [facility] [place] [facility] [address] [facility] [address] Performing Lab: [facility] [place] [facility] [address] [facility] [address] [facility] [place] [facility] BASIC METABOLIC PANEL (fasting) CHLORIDE [MOLES/VOLU ME] IN SERUM OR PLASMA 105 mmol/L 100 - 110 02/17 Specimen Type: SERUM No comment entered. Ordering Provider: SURINDER MIKE Report Released Date/Time: Feb 17, 2025 12:49 PM Reporting Lab: [facility] [place] [facility] [address] [facility] [address] Performing Lab: [facility] [place] [address] [address] [facility] BASIC METABOLIC PANEL (fasting) CARBON DIOXIDE, TOTAL [MOLES/VOLU ME] IN SERUM OR PLASMA 22 meq/L 20 - 30 02/17 Specimen Type: SERUM No comment entered. Ordering Provider: SURINDER MIKE Report Released Date/Time: Feb 17, 2025 12:49 PM Reporting Lab: [facility] [place] [address] [address] Performing Lab: [facility] [place] [address] [address] [facility] BASIC METABOLIC PANEL (fasting) CALCIUM [MASS/VOLUM E] IN SERUM OR PLASMA 9.3 mg/dL 8.5 - 10.2 02/17 Specimen Type: SERUM No comment entered. Ordering Provider: SURINDER MIKE Report Released Date/Time: Feb 17, 2025 12:49 PM Reporting Lab: [facility] [place] [address] [address] Performing Lab: [facility] [place] [address] [address] [facility] [place] [facility] BASIC METABOLIC PANEL (fasting) CREATININE [MASS/VOLUM E] IN SERUM OR PLASMA 0.87 mg/dL 0.50 - 1.40 02/17 Specimen Type: SERUM No comment entered. Ordering Provider: SURINDER MIKE Report Released Date/Time: Feb 17, 2025 12:49 PM Reporting Lab: [facility] [place] [address] [address] Performing Lab: [facility] [place] [address] [address] [facility] [place] [facility] BASIC METABOLIC PANEL (fasting) GLOMERULAR FILTRATION RATE/1.73 SQ M.PREDICTED [VOLUME RATE/AREA] IN SERUM, PLASMA OR BLOOD BY CREATININE- BASED FORMULA (CKD-EPI 2020) >90mL/ min 60 02/17 Specimen Type: SERUM No comment entered. Ordering Provider: SURINDER MIKE Report Released Date/Time: Feb 17, 2025 12:49 PM Reporting Lab: [facility] [place] [address] [address] Performing Lab: [facility] [place] [address] [address] [facility] [place] [facility] CBC LEUKOCYTES [#/VOLUME] IN BLOOD BY AUTOMATED COUNT 10.02 10*3/u L 4.50 - 11.00 02/17 Specimen Type: BLOOD No comment entered. Ordering Provider: SURINDER MIKE Report Released Date/Time: Feb 17, 2025 12:49 PM Reporting Lab: [facility] [place] [address] [address] Performing Lab: [facility] [place] [address] [address] [facility] [place] [facility] CBC ERYTHROCYTE S [#/VOLUME] IN BLOOD BY AUTOMATED COUNT 4.82 10*6/u L 4.23 - 5.66 02/17 Specimen Type: BLOOD No comment entered. Ordering Provider: SURINDER MIKE Report Released Date/Time: Feb 17, 2025 12:49 PM Reporting Lab: [facility] [place] [address] [address] Performing Lab: [facility] [place] [address] [address] [facility] [place] [facility] CBC HEMOGLOBIN [MASS/VOLUM E] IN BLOOD 14.7 g/dL 12.8 - 17 02/17 Specimen Type: BLOOD No comment entered. Ordering Provider: SURINDER MIKE Report Released Date/Time: Feb 17, 2025 12:49 PM Reporting Lab: [facility] [place] [facility] [address] [facility] [address] Performing Lab: [facility] [place] [facility] [address] [facility] [address] [facility] [place] [facility] CBC HEMATOCRIT [VOLUME FRACTION] OF BLOOD BY AUTOMATED COUNT 43.0 39.2 - 50.4 02/17 Specimen Type: BLOOD No comment entered. Ordering Provider: SURINDER MIKE Report Released Date/Time: Feb 17, 2025 12:49 PM Reporting Lab: [facility] [place] [address] [address] Performing Lab: [facility] [place] [address] [address] [facility] [place] [facility] CBC MCV [ENTITIC VOLUME] BY AUTOMATED COUNT 89.2 fL 82 - 99 02/17 Specimen Type: BLOOD No comment entered. Ordering Provider: SURINDER MIKE Report Released Date/Time: Feb 17, 2025 12:49 PM Reporting Lab: [facility] [place] [address] [address] Performing Lab: [facility] [place] [address] [address] [facility] [place] [facility] CBC MCHC [MASS/VOLUM E] BY AUTOMATED COUNT 34.2 g/dL 30.8 - 35.1 02/17 Specimen Type: BLOOD No comment entered. Ordering Provider: SURINDER MIKE Report Released Date/Time: Feb 17, 2025 12:49 PM Reporting Lab: [facility] [place] [address] [address] Performing Lab: [facility] [place] [facility] [address] [facility] [address] [facility] [place] [facility] CBC PLATELETS [#/VOLUME] IN BLOOD BY AUTOMATED COUNT 207 10*3/u L 140 - 360 02/17 Specimen Type: BLOOD No comment entered. Ordering Provider: SURINDER MIKE Report Released Date/Time: Feb 17, 2025 12:49 PM Reporting Lab: [facility] [place] [facility] [address] [facility] [address] Performing Lab: [facility] [place] [facility] [address] [facility] [address] [facility] [place] [facility] CBC PLATELET MEAN VOLUME [ENTITIC VOLUME] IN BLOOD BY AUTOMATED COUNT 11.5 fL 9.2 - 12.4 02/17 Specimen Type: BLOOD No comment entered. Ordering Provider: SURINDER MIKE Report Released Date/Time: Feb 17, 2025 12:49 PM Reporting Lab: [facility] [place] [address] [address] Performing Lab: [facility] [place] [address] [address] [facility] [place] [facility] CBC ERYTHROCYTE DISTRIBUTIO N WIDTH [RATIO] BY AUTOMATED COUNT 13.9 12.0 - 16.0 02/17 Specimen Type: BLOOD No comment entered. Ordering Provider: SURINDER MIKE Report Released Date/Time: Feb 17, 2025 12:49 PM Reporting Lab: [facility] [place] [facility] [address] [facility] [address] Performing Lab: [facility] [place] [facility] [address] [place] [address] [facility] [place] [facility] CBC MCH [ENTITIC MASS] BY AUTOMATED COUNT 30.5 pg 26.2 - 32.6 02/17 Specimen Type: BLOOD No comment entered. Ordering Provider: SURINDER MIKE Report Released Date/Time: Feb 17, 2025 12:49 PM Reporting Lab: [facility] [place] [address] [address] Performing Lab: [facility] [address] [facility] [address] [facility] LIPID PANEL FASTING CHOLESTEROL [MASS/VOLUM E] IN SERUM OR PLASMA 132 mg/dL 10/25 Specimen Type: SERUM No comment entered. Ordering Provider: CATIA SOTO Report Released Date/Time: Oct 22, 2024 03:16 PM Reporting Lab: [facility] [address] [address] Performing Lab: [facility]ITAL[facility] [address] [place] LIPID PANEL FASTING TRIGLYCERID E [MASS/VOLUM E] IN SERUM OR PLASMA 161 mg/dL 0 - 150 10/25 H Specimen Type: SERUM No comment entered. Ordering Provider: CATIA SOTO Report Released Date/Time: Oct 22, 2024 03:16 PM Reporting Lab: [facility] [place] [address] Performing Lab: [facility]ITAL[facility] [address] [facility] LIPID PANEL FASTING CHOLESTEROL IN LDL [MASS/VOLUM E] IN SERUM OR PLASMA BY CALCULATION 71 mg/dL 0 - 129 10/25 Specimen Type: SERUM No comment entered. Ordering Provider: CATIA SOTO Report Released Date/Time: Oct 22, 2024 03:16 PM Reporting Lab: [facility]N [place] [address] Performing Lab: [facility]ED[facility] [address] [place] LIPID PANEL FASTING CHOLESTEROL .TOTAL/CHOL ESTEROL IN HDL [MASS RATIO] IN SERUM OR PLASMA 4.6 10/25 Specimen Type: SERUM No comment entered. Ordering Provider: CATIA SOTO Report Released Date/Time: Oct 22, 2024 03:16 PM Reporting Lab: [facility] [address] [address] Performing Lab: [address] [address] [place] LIPID PANEL FASTING CHOLESTEROL IN HDL [MASS/VOLUM E] IN SERUM OR PLASMA 29 mg/dL 40 - 60 10/25 L Specimen Type: SERUM No comment entered. Ordering Provider: CATIA SOTO Report Released Date/Time: Oct 22, 2024 03:16 PM Reporting Lab: [address] [address] Performing Lab: [address] [address] [place] BASIC METABOLIC PANEL (fasting) UREA NITROGEN [MASS/VOLUM E] IN SERUM OR PLASMA 18 mg/dL 7 - 25 10/25 Specimen Type: SERUM No comment entered. Ordering Provider: CATIA SOTO Report Released Date/Time: Oct 22, 2024 03:16 PM Reporting Lab: [address] [address] Performing Lab: [address] [address] [place] BASIC METABOLIC PANEL (fasting) GLUCOSE [MASS/VOLUM E] IN SERUM OR PLASMA 197 mg/dL 65 - 100 10/25 H Specimen Type: SERUM No comment entered. Ordering Provider: CATIA SOTO Report Released Date/Time: Oct 22, 2024 03:16 PM Reporting Lab: [address] [address] Performing Lab: [address] [address] [place] BASIC METABOLIC PANEL (fasting) SODIUM [MOLES/VOLU ME] IN SERUM OR PLASMA 137 mmol/L 135 - 145 10/25 Specimen Type: SERUM No comment entered. Ordering Provider: CATIA SOTO Report Released Date/Time: Oct 22, 2024 03:16 PM Reporting Lab: [facility] [address] [address] Performing Lab: [facility] [address] [address] [place] BASIC METABOLIC PANEL (fasting) POTASSIUM [MOLES/VOLU ME] IN SERUM OR PLASMA 3.4 mmol/L 3.5 - 5.0 10/25 L Specimen Type: SERUM No comment entered. Ordering Provider: CATIA SOTO Report Released Date/Time: Oct 22, 2024 03:16 PM Reporting Lab: [address] [address] Performing Lab: [address] [address] [place] BASIC METABOLIC PANEL (fasting) CHLORIDE [MOLES/VOLU ME] IN SERUM OR PLASMA 105 mmol/L 100 - 110 10/25 Specimen Type: SERUM No comment entered. Ordering Provider: CATIA SOTO Report Released Date/Time: Oct 22, 2024 03:16 PM Reporting Lab: [address] [address] Performing Lab: [facility] [address] [address] [place] BASIC METABOLIC PANEL (fasting) CARBON DIOXIDE, TOTAL [MOLES/VOLU ME] IN SERUM OR PLASMA 24 meq/L 20 - 30 10/25 Specimen Type: SERUM No comment entered. Ordering Provider: CATIA SOTO Report Released Date/Time: Oct 22, 2024 03:16 PM Reporting Lab: [facility] [address] [address] Performing Lab: [facility] [address] [address] [place] BASIC METABOLIC PANEL (fasting) CREATININE [MASS/VOLUM E] IN SERUM OR PLASMA 0.83 mg/dL 0.50 - 1.40 10/25 Specimen Type: SERUM No comment entered. Ordering Provider: CATIA SOTO Report Released Date/Time: Oct 22, 2024 03:16 PM Reporting Lab: [facility] [facility] [address] [facility] [address] Performing Lab: [facility]ITALUSETS [address] [address] [place] BASIC METABOLIC PANEL (fasting) GLOMERULAR FILTRATION RATE/1.73 SQ M.PREDICTED [VOLUME RATE/AREA] IN SERUM, PLASMA OR BLOOD BY CREATININE- BASED FORMULA (CKD-EPI 2020) >90mL/ min 60 10/25 Specimen Type: SERUM No comment entered. Ordering Provider: CATIA SOTO Report Released Date/Time: Oct 22, 2024 03:16 PM Reporting Lab: [facility]RL TRN [facility]ITALUSE[address] [address] Performing Lab: [facility] [place] [address] [address] [place] LIVER FUNCTION PROTEIN [MASS/VOLUM E] IN SERUM OR PLASMA 6.3 g/dL 6.0 - 8.3 10/25 Specimen Type: SERUM No comment entered. Ordering Provider: CATIA SOTO Report Released Date/Time: Oct 22, 2024 03:16 PM Reporting Lab: [facility]ITALUSETS [address] [address] Performing Lab: [facility] [place] [address] [address] [place] LIVER FUNCTION ALBUMIN [MASS/VOLUM E] IN SERUM OR PLASMA 3.2 g/dL 3.5 - 5.0 10/25 L Specimen Type: SERUM No comment entered. Ordering Provider: CATIA SOTO Report Released Date/Time: Oct 22, 2024 03:16 PM Reporting Lab: [facility]ITALUSETS [address] [address] Performing Lab: [facility] [address] [address] [place] LIVER FUNCTION ALKALINE PHOSPHATASE [ENZYMATIC ACTIVITY/VO LUME] IN SERUM OR PLASMA 53 U/L 40 - 150 10/25 Specimen Type: SERUM No comment entered. Ordering Provider: CATIA SOTO Report Released Date/Time: Oct 22, 2024 03:16 PM Reporting Lab: [facility] [address] [facility] [address] Performing Lab: [facility] [place] [address] [address] [place] LIVER FUNCTION ASPARTATE AMINOTRANSF ERASE [ENZYMATIC ACTIVITY/VO LUME] IN SERUM OR PLASMA 10 U/L 5 - 34 10/25 Specimen Type: SERUM No comment entered. Ordering Provider: CATIA SOTO Report Released Date/Time: Oct 22, 2024 03:16 PM Reporting Lab: [facility] [place] [address] [address] Performing Lab: [facility] [place] [address] [address] [place] LIVER FUNCTION ALANINE AMINOTRANSF ERASE [ENZYMATIC ACTIVITY/VO LUME] IN SERUM OR PLASMA 9 U/L 10/25 Specimen Type: SERUM No comment entered. Ordering Provider: CATIA SOTO Report Released Date/Time: Oct 22, 2024 03:16 PM Reporting Lab: [facility] [place] [address] [address] Performing Lab: [facility] [place] [address] [address] [place] LIVER FUNCTION BILIRUBIN.T OTAL [MASS/VOLUM E] IN SERUM OR PLASMA 0.8 mg/dL 0.2 - 1.2 10/25 Specimen Type: SERUM No comment entered. Ordering Provider: CATIA SOTO Report Released Date/Time: Oct 22, 2024 03:16 PM Reporting Lab: [facility] [address] [address] Performing Lab: [address] [address] [facility] HEMOGLOBI N A1C PANEL HEMOGLOBIN A1C/HEMOGLO BIN.TOTAL IN BLOOD BY HPLC 9.4 4.0 - 5.6 10/25 H Specimen Type: BLOOD Comment: Values obtained from A1C measurement s can vary. For atypical A1C assays, a reported value of 7.0 could actually be between 6.72 and 7.28 if measured by a reference method. A reported value of 9.0 could actually be between 8.73 and 9.27. Ref: http://www. ngsp.org/[place] Pdata.asp Ordering Provider: CATIA SOTO Report Released Date/Time: Oct 22, 2024 03:16 PM Reporting Lab: [address] [address] Performing Lab: [address] [address] [facility] TSH THYROTROPIN [UNITS/VOLU ME] IN SERUM OR PLASMA 1.28 u[IU]/ mL 0.35 - 5.00 10/25 Specimen Type: SERUM No comment entered. Ordering Provider: CATIA SOTO Report Released Date/Time: Oct 22, 2024 03:16 PM Reporting Lab: [address] [address] Performing Lab: [address] [address] [facility] Vital Signs Combined list of inpatient and outpatient Vital Signs from Department of Defense and Veterans Affairs, ranging from 12 months to all on record, depending upon the facility. Vital Sign Value Date Comments Source SYSTOLIC BLOOD PRESSURE 102 04/15/2025 13:46:58 [place] DIASTOLIC BLOOD PRESSURE 56 04/15/2025 13:46:58 [place] PULSE OXIMETRY 97 % 04/15/2025 13:46:58 [place] PAIN 2 04/15/2025 13:46:58 [place] TEMPERATURE 97.9 04/15/2025 13:46:58 [place] PULSE 87 04/15/2025 13:46:58 [place] RESPIRATION 20 04/15/2025 13:46:58 [place] SYSTOLIC BLOOD PRESSURE 113 04/12/2025 14:19:51 [place] DIASTOLIC BLOOD PRESSURE 62 04/12/2025 14:19:51 [place] PULSE OXIMETRY 97 04/12/2025 14:19:51 [place] PAIN 3 04/12/2025 14:19:51 [place] TEMPERATURE 98.2 04/12/2025 14:19:51 [place] PULSE 90 04/12/2025 14:19:51 [place] RESPIRATION 18 04/12/2025 14:19:51 [place] SYSTOLIC BLOOD PRESSURE 137 03/18/2025 11:41:13 [place] DIASTOLIC BLOOD PRESSURE 81 03/18/2025 11:41:13 [place] PULSE OXIMETRY 97 03/18/2025 11:41:13 [place] WEIGHT 250 03/18/2025 11:41:13 [place] BMI 32 kg/m2 03/18/2025 11:41:13 [place] HEIGHT 74 03/18/2025 11:41:13 [place] TEMPERATURE 96.9 03/18/2025 11:41:13 [place] PULSE 90 03/18/2025 11:41:13 [place] RESPIRATION 19 03/18/2025 11:41:13 [place] SYSTOLIC BLOOD PRESSURE 121 10/28/2024 15:31:43 [place] DIASTOLIC BLOOD PRESSURE 75 10/28/2024 15:31:43 [place] PULSE OXIMETRY 97 10/28/2024 15:31:43 [place] WEIGHT 252 10/28/2024 15:31:43 [place] BMI 32 kg/m2 10/28/2024 15:31:43 [place] TEMPERATURE 98.2 10/28/2024 15:31:43 [place] PULSE 88 10/28/2024 15:31:43 [place] SYSTOLIC BLOOD PRESSURE 116 09/10/2024 14:17:27 [place] DIASTOLIC BLOOD PRESSURE 72 09/10/2024 14:17:27 [place] PULSE OXIMETRY 96 09/10/2024 14:17:27 [place] WEIGHT 248.2 09/10/2024 14:17:27 [place] BMI 32 kg/m2 09/10/2024 14:17:27 [place] TEMPERATURE 97 09/10/2024 14:17:27 [place] PULSE 86 09/10/2024 14:17:27 [place] Encounters Combined list of: 1) Encounters from Department of Veterans Affairs facilities going backup to the last 18 months, not all VA inpatient encounters are included; 2) Encounters from the Department of [facility] facilities going backup to 280 months. Location Location Details Encounter Type Encounter Number Reason For Visit Attending Provider ADM Date DC Date Status Disposition Source [facility] [place] [facility] Outpatient Encounter [id number] 11/20 [facility] [place] [facility] [place] O/P EST MOD 30 MIN [id number] Diagnos is: ICD-10- CM F32.9 Major depress iam disorde r, single episode , unspeci fied WORKMANST KUMARAAMIR G 12/17 [facility] MINUTES [id number] Diagnos is: ICD-10- CM F32.9 Major depress iam disorde r, single episode , unspeci fied GILBERTO TALAMANTES I 01/06 [facility] [place] [facility] Outpatient Encounter [id number] 01/06 [facility] [place] [facility] [place] [facility] Outpatient Encounter [id number] 01/08 [facility] [place] [facility] [facility] [place] [facility] [place]PRE [place] 1/ [id number] Diagnos is: ICD-10- CM E11.9 Type 2 diabete s mellitu s without complic ations ZACH ZAPATA 02/05 [facility] [place] [facility] [place] FIT SPECTACLES BIFOCAL [id number] Diagnos is: ICD-10- CM Z46.0 Encount er for fit/adj st of spectac les and contact lenses ZACH ZAPATA 02/05 [facility] [place] Outpatient Encounter [id number] 02/09 [place] [facility] En[facility] [id number] 02/12 [facility] [place] [place] QNHP OL DIG ASSMT&MGMT 21+ [id number] Diagnos is: ICD-10- CM Z12.2 Encntr screen for maligna nt neoplas m of respira tory organs ANNETTE CAMPOS 02/15 [facility] En[facility] [id number] 02/19 [facility] [place] Outpatient Encounter [id number] 02/23 [place] [facility] Encounter [id number] 03/12 [facility] [place] Outpatient Encounter [id number] 03/17 [place] Outpatient Encounter [id number] Diagnos is: ICD-10- CM F43.10 Post-tr aumatic stress disorde r, unspeci fied ST RENEA WORKMAN G 03/22 [facility] [place] PSYTX W PT 45 MINUTES [id number] Diagnos is: ICD-10- CM F32.9 Major depress iam disorde r, single episode , unspeci fied OFRAT,SHAN I 03/23 [place] MTMS BY PHARM ADDL 15 MIN [id number] Diagnos is: ICD-10- CM E11.65 Type 2 diabete s mellitu s with hypergl ycemia ELOISE MIKE A 04/02 [place] [facility] Outpatient Encounter [id number] 04/03 [facility] [place] [facility] [place] [facility] Outpatient Encounter [id number]/[id number] [facility] [place] [facility] [place] OFF/OP EST MARCH X REQ PHY/QHP [id number] Diagnos is: ICD-10- CM 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 GRANT Scanlon 04/13 [place] [facility] Outpatient Encounter [id number] 04/27 [facility] Outpatient Encounter [id number] 04/28 [facility] [place] [place] PSYTX W PT 45 MINUTES [id number] Diagnos is: ICD-10- CM F32.9 Major depress iam disorde r, single episode , unspeci fied OFRAT,GILBERTO I 05/04 [facility] [place] OFFICE O/P EST HI 40 MIN [id number] Diagnos is: ICD-10- CM R01.1 Cardiac murmur, unspeci fied NICKIE BALDWIN 05/06 [place] [facility] Outpatient Encounter [id number] [facility] [place] [place] MTMS BY PHARM ADDL 15 MIN [id number] Diagnos is: ICD-10- CM E11.65 Type 2 diabete s mellitu s with hypergl ycemia MIKE,ELOISE ABOTTO A 05/06 [place] [facility] ELECTR[facility] DIOGRAM REPORT [id number] Diagnos is: ICD-10- CM Z13.6 Encount er for screeni ng for cardiov ascular disorde rs PLASENCIA,PAR UL U 05/06 [facility] [place] ELECTROCAR DIOGRAM TRACING [id number] Diagnos is: ICD-10- CM I10 Essenti al (primar y) hyperte nsion IRENE,NI ANGELITO R 05/06 [place] [facility] En[facility] [id number] 05/07 [facility] En[facility] [id number] 05/09 [facility] En[facility] [id number] 05/10 [facility] En[facility] [id number] 05/11 [facility] [place] [place] OFF/OP EST MARCH X REQ PHY/QHP [id number] [id number] Diagnos is: ICD-10- CM 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 GRANT AVELAR 05/11 [place] [facility] En[facility] [id number] 05/18 [facility] [place] [place] Outpatient Encounter [id number] 05/19 [facility] [facility] MIN [id number] Diagnos is: ICD-10- CM F32.9 Major depress iam disorde r, single episode , unspeci fied ST RENEA WORKMAN 05/28 [facility] [place] [facility] Outpatient Encounter [id number] 1.06/01 [facility] [place] [facility] [place] [facility] Outpatient Encounter [id number] 1.06/01 [facility] [place] [facility] [place] [facility] TTE W/DOPPLER COMPLETE [id number] Diagnos is: ICD-10- CM R01.1 Cardiac murmur, unspeci fied ELLEN MIRANDA 06/04 [facility] [place] [facility] [place] [facility] EXT ECG>48HR<7 D RECORDING [id number] Diagnos is: ICD-10- CM I49.9 Cardiac arrhyth reynold, unspeci fied GRANT COLLINS MY 06/04 [facility] [place] [facility] OFF/OP EST MAY X REQ PHY/QHP 32008-8.68 [id number] Diagnos is: ICD-10- CM Z13.6 Encount er for screeni ng for cardiov ascular disorde rs LIRIANO Tracy LUNA 06/04 [place] [facility] [place] PSYTX W PT 45 MINUTES [id number] [id number] Diagnos is: ICD-10- CM F32.9 Major depress iam disorde r, single episode , unspeci fied CHAPARRORashidaGILBERTO I 06/09 [facility] [place] OFFICE O/P EST MOD 30 MIN [id number] [id number] Diagnos is: ICD-10- CM F32.9 Major depress iam disorde r, single episode , unspeci fiST RENEA Aguillon G 06/09 [facility] [facility] Outpatient Encounter [id number] 06/09 [place] [facility] [place] [facility] [place] [facility] Outpatient Encounter [id number] 06/10 [place] [facility] [place] [facility] Outpatient Encounter [id number] Diagnos is: ICD-10- CM Z04.89 Encount er for examina tion and observa tion for oth reasons ELENITA NOEL 06/17 [facility] Outpatient Encounter [id number] Diagnos is: ICD-10- CM Z04.89 Encount er for examina tion and observa tion for oth reasons MINNA DHALIWAL 06/22 [facility] Outpatient Encounter [id number] [id number] 06/25 [facility] OFFICE O/P EST HI 40 MIN [id number] [id number] Diagnos is: ICD-10- CM F32.9 Major depress iam disorde r, single episode , unspeci ST RENEA Casper G 06/25 [facility] PSYTX W PT 45 MINUTES 85576-3.63 1BY. 41 Diagnos is: ICD-10- CM F32.A Depress ion, unspeci fied GILBERTO TALAMANTES I 07/06 [facility] [facility] Outpatient Encounter [id number] 07/13 [facility] [place] [facility] [place] [facility] Outpatient Encounter [id number] 07/20 [facility] [place] [facility] [place] OFFICE O/P EST MOD 30 MIN [id number] [id number] Diagnos is: ICD-10- CM F32.9 Major depress iam disorde r, single episode , unspeci ST RENEA Casper 07/27 [facility] IELD [place] MTMS BY PHARM ADDL 15 MIN [id number] [id number] Diagnos is: ICD-10- CM E11.65 Type 2 diabete s mellitu s with hypergl ycemia MIKE,IZ ABELA A 07/30 [facility] IELD [place] IMMUNIZATI ON ADMIN [id number] [id number] Diagnos is: ICD-10- CM Z23 Encount er for immuniz atVICTORIA Carnes 07/30 [facility] [place] [facility] Outpatient Encounter [id number] 1.08/02 [facility] [place] [facility] [place] OFF/OP EST MARCH X REQ PHY/QHP [id number] [id number] Diagnos is: ICD-10- CM 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 GRANT AVELAR 08/10 [facility] IELD [place] PSYTX W PT 45 MINUTES [id number] [id number] Diagnos is: ICD-10- CM F33.1 Major depress iam disorde r, recurre nt, moderat e OFRAT,SHAN I 08/10 [place] [facility] [place] [facility] Outpatient Encounter [id number] 08/24 [facility] [place] [facility] [place] [facility] Outpatient Encounter [id number] 08/25 [facility] [place] [facility] [place] [facility] Outpatient Encounter [id number] [id number] 08/30 [facility] [place] En[facility] [id number] 08/31 [facility] [place] Encounter [id number] [id number] 08/31 [facility] [place] Encounter [id number] 09/01 [facility] [place] Encounter [id number] [id number]/01 [facility] [place] Encounter [id number] 1.09/03 [facility] [place] [place] Encounter [id number] 1.09/06 [facility] [place] [place] Encounter [id number] 1.09/07 [facility] [place] [facility] [place] OFFICE O/P EST MOD 30 MIN [id number] [id number] Diagnos is: ICD-10- CM F32.9 Major depress iam disorde r, single episode , unspeci fied WORKMANST KUMARAAMIR G 09/08 [facility] AD[facility] 15 MIN [id number] [id number] Diagnos is: ICD-10- CM E11.65 Type 2 diabete s mellitu s with hypergl ycemia MIKE,IZ ABELA A 09/08 [place] [facility] Out[facility] Encounter [id number] 09/08 [facility] [place] [place] OFFICE O/P EST HI 40 MIN [id number] [id number] Diagnos is: ICD-10- CM I10 Essenti al (primar y) hyperte nsion MARVIN [place],OG LISAJAVY Molina 09/10 [place] [facility] Outpatient Encounter [id number] 1.09/10 [facility] [place] [place] [facility] Outpatient Encounter [id number] 1.09/11 [facility] [place] [place] [facility] Outpatient Encounter [id number] 1.09/13 [facility] [place] [facility] (631GE) QNHP OL DIG ASSMT&MGMT 5-10 [id number] [id number] Diagnos is: ICD-10- CM E11.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 mellitu s with diabeti c neuropa thy, unsp MARQUEZ,QUE N 09/14 [facility] (631GE) [facility] LD OFFICE O/P EST HI 40 MIN [id number] Diagnos is: ICD-10- CM F32.9 Major depress iam disorde r, single episode , unspeci fied ST RENEA WORKMAN G 10/06 [place] [facility] [place] [facility] Outpatient Encounter [id number] 10/18 [facility] [place] [place] [facility] Outpatient Encounter [id number] 10/26 [facility] [place] [place] [facility] Outpatient Encounter [id number] 10/28 [facility] [place] [facility] [place] OFFICE O/P [place] HI 40 MIN [id number] [id number] Diagnos is: ICD-10- CM I10 Essenti al (primar y) hyperte nsion MARVIN [place],OG LEN M 10/28 [place] [facility] Out[facility] Encounter [id number] 1.10/30 [facility] [place] Encounter [id number] 1.10/30 [facility] [place] [place] Outpatient Encounter [id number] [id number] 38 11/02 [place] [facility] Out[facility] Encounter [id number] 1.11/03 [facility] [place] [place] MTMS BY PHARM EDITOR PUBLICATIONS 15 MIN [id number] [id number] Diagnos is: ICD-10- CM E11.65 Type 2 diabete s mellitu s with hypergl ycemia MIKE,IZ ABELA [place] [facility] [place] [facility] Outpatient Encounter [id number] 1.11/26 [facility] [place] [place] PSYTX W PT 45 MINUTES [id number] [id number] Diagnos is: ICD-10- CM F32.9 Major depress iam disorde r, single episode , unspeci fied GILBERTO TALAMANTES I [place] OFFICE O/P EST MOD 30 MIN [id number] [id number] Diagnos is: ICD-10- CM F32.9 Major depress iam disorde r, single episode , unspeci fied WORKMANST KUMARAAMIR G 11/30 [place] MTMS BY PHARM EST 15 MIN [id number] [id number] Diagnos is: ICD-10- CM E11.65 Type 2 diabete s mellitu s with hypergl ycemia ELOISE MIKE A [place] MTMS BY PHARM EST 15 MIN [id number] [id number] Diagnos is: ICD-10- CM E11.8 Type 2 diabete s mellitu s with unspeci fied complic ations ELOISE MIKE A 12/17 [place] [facility] [place] Outpatient Encounter [id number] 12/17 [facility] [place] [place] [facility] OFFICE O/P NEW HI 60 MIN [id number] Diagnos is: ICD-10- CM L57.0 Actinic keratos is LIBAN ROBBINS 12/21 [facility] [place] [facility] [place] PSYTX W PT 45 MINUTES [id number] [id number] Diagnos is: ICD-10- CM F32.9 Major depress iam disorde r, single episode , unspeci fied OFGILBERTO Field I [place] [facility] [place] [facility] Outpatient Encounter [id number] 12/31 [facility] [place] [place] OFF/OP EST MARCH X REQ PHY/QHP [id number] [id number] 53 Diagnos is: ICD-10- CM 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 GRANT AVELAR 01/06 [place] [facility] Out[facility] Encounter [id number] 01/13 [facility] [place] [place] Out[facility] Encounter [id number] 01/16 [facility] [place] [facility] [place] PSYTX W PT 45 MINUTES [id number] [id number] Diagnos is: ICD-10- CM F32.9 Major depress iam disorde r, single episode , unspeci fied GILBERTO TALAMANTES I 01/25 [facility] OFFICE O/P EST HI 40 MIN [id number] [id number] Diagnos is: ICD-10- CM F32.9 Major depress iam disorde r, single episode , unspeci fied ST RENEA WORKMAN G 01/25 [facility] [place] Out[facility] Encounter [id number] 01/26 [facility] [place] [place] Out[facility] Encounter [id number] [id number] 02/08 [facility] [place] [place] COMPRE OPH EXAM EST PT 1/> [id number] [id number] Diagnos is: ICD-10- CM E11.9 Type 2 diabete s mellitu s without complic ations ZACH ZAPATA 02/08 [facility] NQHP OL DIG ASSMT&MGMT 21+ [id number] [id number] Diagnos is: ICD-10- CM Z12.2 Encntr screen for maligna nt neoplas m of respira tory organs ANNETTE CAMPOS 02/08 [facility] [place] Out[facility] Encounter [id number] [facility] [place] [facility]/OP EST MARCH X REQ PHY/QHP [id number] [id number] Diagnos is: ICD-10- CM 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 GRANT AVELAR 02/10 [place] [facility] [place] [facility] Outpatient Encounter [id number] 02/17 [facility] [place] [facility] [place] MTMS BY PHARM EST 15 MIN 01048-6.63 [id number] Diagnos is: ICD-10- CM E11.8 Type 2 diabete s mellitu s with unspeci fied complic atELOISE Carpenter A 02/17 [place] [facility] [place] Outpatient Encounter [id number]/04 [facility] [place] [facility] [place] OFFICE O/P EST MOD 30 MIN [id number] [id number] Diagnos is: ICD-10- CM F32.9 Major depress iam disorde r, single episode , unspeci fied ST RENEA WORKMAN G 03/08 [facility] IELD [place] PSYTX W PT 45 MINUTES [id number] [id number] 19 Diagnos is: ICD-10- CM F33.1 Major depress iam disorde r, recurre nt, moderat e OFRAT,SHAN I 03/08 [facility] IELD [place] OFF/OP EST MAY X REQ PHY/QHP [id number] [id number] 05 Diagnos is: ICD-10- CM 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 GRANT Scanlon 03/17 [facility] [place] [facility] [place] [facility] Outpatient Encounter [id number] 03/18 [facility] [place] [place] [facility] [place] OFFICE O/P EST HI 40 MIN [id number] [id number] Diagnos is: ICD-10- CM I10 Essenti al (primar y) hyperte nsion NADNICKIE MCQUEEN 03/18 [facility] [place] [facility] Outpatient Encounter [id number] [facility] [place] NQHP OL DIG ASSMT&MGMT 5-10 [id number] [id number] Diagnos is: ICD-10- CM E11.65 Type 2 diabete s mellitu s with hypergl ycemia SHELL GARRISON J 03/21 [facility] Out[facility] Encounter [id number] [id number]/30 [facility] [place] Out[facility] Encounter [id number] 1.04/01 [facility] [place] [facility] [place] MTMS BY PHARM ADDL 15 MIN [id number] [id number] Diagnos is: ICD-10- CM E11.65 Type 2 diabete s mellitu s with hypergl ycemia MIKE,IZ ABELA A 04/04 [place] [facility] Out[facility] Encounter [id number] [id number]/05 [facility] [place] Out[facility] Encounter [id number] [id number]/06 [facility] [place] [place] PT EVAL LOW COMPLEX 20 MIN [id number] [id number] Diagnos is: ICD-10- CM R26.89 Other abnorma lities of gait and mobilit y DENISSE TANNER 04/12 [place] OFF/OP EST MARCH X REQ PHY/QHP 80957-2.63 [id number] 06 Diagnos is: ICD-10- CM L03.116 Celluli tis of left lower limb SADE LOPEZ IC K 04/12 [place] OFF/OP EST MARCH X REQ PHY/QHP [id number] [id number] Diagnos is: ICD-10- CM S81.802 D Unspeci fied open wound, left lower leg, subsequ ent encount er JESSICA,ER IC K 04/15 [facility] IE [facility] [place] [facility] Outpatient Encounter [id number] [facility] [place] [facility] [place] [facility] Outpatient Encounter [id number] 1.04/15 [facility] [place] [facility] [place] [facility] Outpatient Encounter [id number] [facility] [place] [facility] OFFICE O/P EST MOD 30 MIN [id number] [id number] Diagnos is: ICD-10- CM F32.9 Major depress iam disorde r, single episode , unspeci fied ST RENEA WORKMAN G 04/20 [facility] IE Social History Combined list of available smoking, tobacco, and other social history from Department of Defense and Veterans Affairs facilities. 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 Additional future care activities may be listed in the Assessment and Plan section. Date/Time Care Activity Care Activity Detail Facili ty 06/13/2025 AMBULATORY - MEDICINE AMBULATORY - MEDICI NE [facility] [place] [facility]
[2025-05-12 07:59] VITALS: BP 140/80; PULSE 60; O2SAT 99
[2025-05-12 08:04] VITALS: BP 154/59; PULSE 66; RESP 16; TEMP 36.6; O2SAT 98; BMI 32.1
--- NOTE | 2025-05-12 08:11 | PC.NURSE ---
Pt roomed and placed on full monitor- VSS SR occas PVC on telemetry. Pt awating provider. No complaints except from abrasions and knee pain. No bruising or edema noted. Denies head strike or LOC.A&O X4
--- NOTE | 2025-05-12 08:20 | ECG_ITS ---
Test Reason : fall Blood Pressure : */* mmHG Vent. Rate : 68 BPM Atrial Rate : 68 BPM P-R Int : 190 ms QRS Dur : 94 ms QT Int : 444 ms P-R-T Axes : 63 31 61 degrees QTcB Int : 472 ms Normal sinus rhythm Normal ECG When compared with ECG of 29-Dec-2021 04:48, Premature ventricular complexes are no longer Present Referred By: Generic ED Physician Electronically Signed By: ARLINE SALAS
--- NOTE | 2025-05-12 08:55 | ED_ITS ---
HPI - General Adult General Chief complaint: Fall Stated complaint: Fall/Scraped Knee,Hand,and Nose Time Seen by Provider: 05/12/25 08:54 Source: patient, EMS, RN notes reviewed and old records reviewed Mode of arrival: EMS Limitations: no limitations History of Present Illness ED Provider: Frederic HPI narrative: Patient is a 75-year-old male with history of gait instability, T2 DM, BPPV, PTSD, HTN presenting to the emergency department after a trip and fall prior to arrival. Patient states that he was walking outside of his apartment on uneven sidewalk when he mechanically tripped and fell. He reports scraping his nose but denies striking the top of his head, denies loss of consciousness. States that he did not have any dizziness or lightheadedness prior to the fall. Complains of bilateral knee pain and abrasions as well as abrasions to fingers of right hand. Also complains of abrasion to right elbow. Denies headache, blurred vision, double vision or other visual changes. Denies chest pain, palpitations, dyspnea. Denies any nausea or vomiting. States Tdap was last updated in August. MD complaint: knee pain Related Data Home Medications ?Medication ?Instructions ?Recorded ?Confirmed cholecalciferol (vitamin D3) 25 25 mcg PO DAILY 08/27/24 mcg (1,000 unit) capsule mirtazapine 30 mg disintegrating 30 mg PO BEDTIME 05/0708/27/24 tablet melatonin 1 mg tablet 1 mg PO BEDTIME PRN Sleep 08/27/24 sertraline 100 mg tablet 150 mg PO DAILY 11/06/2110/10 topiramate 25 mg tablet 25 mg PO BID 11/06/21 ammonium lactate 12 % lotion 1 appl topical DAILY 12/1808/27/24 aspirin 81 mg tablet,delayed 81 mg PO DAILY 12/29/21 1 release vitamin B complex 1 cap PO DAILY 12/29/2108/17 white petrolatum-mineral oil lotion 1 ea topical DAILY 12/29/21 08/27/24 insulin aspart U-100 100 unit/mL See Rx Instructions . Route .COMPLEX 04/05/24 08/27/24 (3 mL) subcutaneous pen (Novolog FlexPen U-100 Insulin aspart) insulin glargine-yfgn 100 unit/mL 24 unit subcut BID 0 04/05/24 08/27/24 (3 mL) subcutaneous pen (Semglee (insulin glargine-yfgn) Pen) semaglutide 1 mg/dose (4 mg/3 mL) 1 mg subcut QWEEK 08/27/24 subcutaneous pen injector Previous Rx's ?Medication ?Instructions ?Recorded ADULT PULL-UPS #100 ea 01/02/22 blood sugar diagnostic (FreeStyle 1 strip miscellaneou s TID for 08/03/22 Lite Strips) diabetes mellitus #300 caps lancets 28 gauge (FreeStyle 1 gauge topical TID #300 c aps 08/03/22 Lancets) loperamide 2 mg tablet (Imodium 2 mg PO Q6H PRN loose stool #30 06/12/23 A-D) tabs peg-electrolyte solution 420 gram 240 ml PO ONCE PRN l axative effect 06/12/23 oral solution 1 day #4,000 mL doxycycline monohydrate 100 mg 100 mg PO BID 10 days # 20 caps 05/05/24 capsule lovastatin 40 mg tablet 40 mg PO DAILY 90 days #90 t abs 09/24/24 metformin 1,000 mg tablet 1,000 mg PO BID 90 days #180 tabs 09/24/24 metoprolol tartrate 25 mg tablet 25 mg PO BID 90 days #180 tabs 03/23/25 gabapentin 300 mg capsule 300 mg PO TID 90 days #270 c aps 04/18/25 cefuroxime axetil 500 mg tablet 500 mg PO BID #13 tabs 05/12/25 Allergies Allergy/AdvReac Type Severity Reaction Status Date / Time No Known Allergies (No Known Allergy Verified 05/12/25 08:08 Allergies*) Review of Systems 2 Review of Systems: As per HPI Yes all other systems are reviewed and are negative Constitutional: Constitutional: Reports as per HPI [facility] Past Medical History Medical History (Updated 05/12/25 @ 12:30 by Eusebia De La Garza NP) Obesity due to excess calories Diabetes Stool incontinence Frequent diarrhea Irritable bowel Keratotic lesion Bilateral lower leg cellulitis Abdominal pain Urinary tract infection Cellulitis of right lower leg Urinary tract infection due to Klebsiella species Annual physical exam Wound of left lower extremity Onychomycosis Frequent falls Cellulitis of left lower leg SOB (shortness of breath) on exertion Type 2 diabetes mellitus with microalbuminuria Benign paroxysmal vertigo Obesity (BMI 30-39.9) Smoker Depression Posttraumatic stress disorder Insomnia Postprandial diarrhea Vitamin B12 deficiency Vitamin D deficiency Nonintractable headache Degenerative disc disease, cervical Neuropathy Lumbar degenerative disc disease Benign essential hypertension Pure hypercholesterolemia Diabetes mellitus HTN (hypertension) Chronic diarrhea Surgical History History of colonoscopy History of esophagogastroduodenoscopy (EGD) History of lumbar surgery History of surgery History of cervical spinal surgery History of laparoscopic cholecystectomy Family History Family History Father Diabetes CVD (cardiovascular disease) Mother Stroke Social History Social History Household Members: Children Household Members Other:: lives with his son Housing: Apartment Alcohol intake: current Alcohol intake frequency: holidays/special occasions only Patient Tobacco Use Status: Current everyday Tobacco user Tobacco use type: Cigarette Cigarette Packs Per Day: 0.5 Cigarettes Per Day: 10 Smoked in Last 30 Days: Yes e-Cigarette/Vaping Use: Never Used Second Hand Smoke Exposure: Yes Use of substances other than those prescribed or required for medical reasons: No Advance Directives: Yes Advance Directives Information Provided: No Advance Directives on File: No service: Yes Current occupational status: retired Cognitive needs: Yes (cane) Hearing needs: No Vision needs: Yes (reading glasses) Physical Exam ED Vital Signs: Vital Signs - 24 hr 05/12/25 08:04 05/12/25 10:07 05/12/25 12:06 Temperature 97.9 F 97.9 F 97.0 F Pulse Rate 66 62 70 Respiratory Rate 16 14 14 Blood Pressure 154/59 H 139/66 Pulse Oximetry 98 97 97 Oxygen Delivery Method Room Air Room Air Room Air BMI result Body Mass Index 32.1 Vital signs have been reviewed and appear to be correct. Blood pressure normal. Heart rate normal. Respiratory rate normal. Temperature normal. Oxygen saturation normal. Const General: cooperative, healthy appearing and no acute distress Orientation/consciousness: oriented to person, oriented to place, oriented to time and patient oriented x3 Limitations: no limitations HENMT Head: Yes normocephalic Ears: external ears normal, TM's normal bilaterally and EAC's normal General nose exam: Normal nasal mucous membranes and turbinates present, Normal septum present, Abnormal external nose present nasal abrasion and no epistaxis Face and sinus: Yes face symmetric Mouth: oropharynx normal and moist mucous membranes Throat: Yes uvula midline Eyes Pupils: Equal, round and reactive pupils present EOM: EOMs intact bilaterally Neck Neck: Yes normal visual inspection and Yes supple Resp Effort & Inspection: normal respiratory effort and able to speak in complete sentences Auscultation: clear to auscultation bilaterally Cardio Rate: regular rate Rhythm: regular rhythm Heart sounds: S1 normal heart sound present and S2 normal heart sound present GI Palpation (GI): Soft to palpation and nontender Auscultation: normoactive bowel sounds General: Yes no CVA tenderness Back/Spine/Pelvis Back: no CVA tenderness Skin General skin exam: elasticity normal and turgor normal Neuro General: oriented to person, oriented to place, oriented to time, patient oriented x3, moves all extremities, no focal motor deficits and CN's II-XI intact bilaterally Cranial nerves: Yes Equal, round and reactive pupils present Cognition (Neuro): normal cognition Extrem General: Yes full ROM, Yes no pedal edema and Yes no calf tenderness Right upper extremity: elbow/forearm Details: normal ROM, abrasion elbow Details: single and distal pulses intact; no tenderness, no swelling, no crepitus and no deformity and Extremity exam: right hand Details: neuromotor exam normal, neurosensory exam normal, vascular exam Details: radial pulse present and normal capillary refill, normal ROM of fingers and abrasion Location: of the 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) Location: on the dorsal aspect, of the 4th digit Location: on the dorsal aspect and of the 5th digit Location: on the dorsal aspect Right lower extremity: knee Details: normal ROM and abrasion knee anterior Left lower extremity: knee Details: normal ROM and abrasion knee anterior Psych Mental Status: mental status grossly normal Affect: normal affect Thought process: Normal thought process present Medications Administered Discontinued Medications Generic Name Dose Route Start Last Admin Trade Name Freq PRN Reason Stop Dose Admin Bacitracin 5 appl 05/12/25 10:11 05/12/25 10:34 Bacitracin Oint 0.9 Gm Packet TOPICAL 05/12/25 10:12 5 appl ONCE ONE Administration Protocol Cefuroxime Axetil 500 mg 05/12/25 10:19 05/12/25 10:31 Cefuroxime Axetil 500 Mg Tablet PO 05/12/25 10:20 500 mg ONCE ONE Administration Magnesium Sulfate 2 gm in 50 mls @ 25 mls/hr 05/12/25 10:18 05/12/25 10:31 Magnesium Sulfate/H2o IV 05/12/25 12:17 25 mls/hr ONCE ONE Administration Medical Decision Making Medical Decision Making [facility] Narrative: Patient is a 75-year-old male with history of gait instability, T2 DM, BPPV, PTSD, HTN presenting to the emergency department after a trip and fall prior to arrival. On exam patient is awake, A+Ox3, VS WNL, afebrile, normal neurological exam without focal deficits, physical exam findings as above. Given reported symptoms and physical exam findings, initial differential includes but is not limited to ICH, skull, facial, or cervical fracture or subluxation, abrasions of fingers, abrasions of knees, knee contusions vs fractures. Labs notable for hypomagnesemia. IV magnesium ordered. EKG shows NSR. Urinalysis notable for 3+ leukocytes, positive nitrites, greater than 50 wbc's, 4+ bacteria, 0-2 epithelials. Will treat for UTI with cefuroxime. X-ray bilat knees notable for effusions without acute fractures. X-ray right shoulders without evidence of acute fracture. CT head and C-spine notable for no evidence of ICH, skull or cervical vertebral fracture subluxation. CT facial bones is without evidence of facial bone fracture. My interpretation is in agreement with the radiologist's interpretation. Results and wound care instructions discussed with patient at bedside. Will refer to wound care clinic. Return precautions discussed. Patient verbalized understanding of and agreement with plan. Differential Diagnosis Differential Diagnoses: The differential diagnosis associated with the presentation includes as per [facility] Admission/Observation Consideration of admission/observation: Escalation of care including admission/observation considered Patient would have been admitted to the hospital had their work up had any findings where hospital admission was appropriate and their clinical presentation warranted hospital admission. Lab Data [facility] Lab Attestation statement: I reviewed the patient's lab results. As per [facility] 05/12/25 08:52 05/12/25 08:52 Labs: Lab Results 05/12/25 05/12/25 Range/Units 08:52 09:08 WBC 7.3 (4.8-10.8) X10*3/uL RBC 4.39 L (4.60-5.80) X10*6/uL Hgb 13.8 L (14.0-18.0) g/dl Hct 39.5 L (42.0-52.0) % MCV 90.0 (80.0-98.0) fL MCH 31.4 (27.0-33.0) pg MCHC 34.9 (31.0-36.0) g/dl RDW 13.2 (11.0-16.0) % Plt Count 148 L (160-400) X10*3/uL MPV 10.3 (9.4-12.4) fL Immature Gran % (Auto) 0.3 (0.0-0.4) % Neut % (Auto) 65.6 (45-73) % Lymph % (Auto) 22.9 (20-40) % [place] % (Auto) 7.4 (2-11) % Eos % (Auto) 3.0 (0-4) % Baso % (Auto) 0.8 (0-2) % Lymph # (Auto) 1.7 (1.2-4.9) X10*3/uL [place] # (Auto) 0.5 (0.1-1.2) X10*3/uL Eos # (Auto) 0.2 (0.0-0.4) X10*3/uL Baso # (Auto) 0.1 (0.0-0.2) X10*3/uL Abs Immat Gran (auto) 0.02 (0.00-0.03) X10*3/uL Absolute Neuts (auto) 4.8 (2.0-8.3) x10*3/uL Absolute Nucleated RBC 0.000 (0.0-0.012) X10*3/uL Nucleated RBC % (auto) 0.0 (0.0-0.2) /100WBC Sodium 137 (135-145) mmol/L Potassium 3.5 (3.3-5.1) mmol/L Chloride 107 (96-108) mmol/L Carbon Dioxide 25 (22-29) mmol/L Anion Gap 9 L (12-20) BUN 13 (9-16) mg/dL Creatinine 0.81 (0.5-1.4) mg/dL Estim Creat Clear Calc 108.7 Estimated GFR > 60 Random Glucose 188 H (60-115) mg/dL Calcium 9.0 (8.4-10.2) mg/dL Magnesium 1.5 L (1.6-2.6) mg/dL Total Bilirubin 1.0 (0.0-1.0) mg/dL AST 17 (5-37) U/L ALT 11 (0-40) U/L Alkaline Phosphatase 55 (39-117) U/L Total Protein 6.4 L (6.5-8.0) g/dL Albumin 3.8 (3.5-5.0) g/dL Urine Color Yellow Urine Appearance Cloudy Urine pH 6.0 (5.0-9.0) Ur Specific [place] 1.015 (1.005-1.025) Urine Protein Trace (Neg-Trace) mg/dL Urine Glucose (UA) Negative (Negative) mg/dL Urine Ketones Trace (Negative) mg/dL Urine Blood Negative (Negative) Urine Nitrite Positive H (Negative) Ur Leukocyte Esterase Large (3+) H (Negative) Urine RBC 0-2 (0-2) /HPF Urine WBC >50 H (0-5) /HPF Ur Squamous Epith Cells 0-2 (0-2) /HPF Urine Bacteria 4+ (None Seen) Hyaline Casts 0-2 (0-2) /LPF Influenza Type A (PCR) NEGATIVE (Negative) Influenza Type B (PCR) NEGATIVE (Negative) RSV RNA Qual (PCR) NEGATIVE (Negative) SARS-CoV-2 RNA (RT-PCR) NEGATIVE (Negative) Independent Interpretation I performed an independent interpretation of an: EKG (normal sinus rhythm, rate 68bpm, normal MI interval and QTc), Plain X-Ray and CT Scan Interpretation: X-ray bilat knees notable for effusions without acute fractures. X-ray right shoulders without evidence of acute fracture. CT head and C-spine notable for no evidence of ICH, skull or cervical vertebral fracture subluxation. Radiology Impression Discussion of test interpretation with radiology: I have reviewed the radiologist's reading. Radiologist Impression: XR/XR shoulder RT min 2V IMPRESSION: 1. No acute bony abnormalities identified. 2. Changes of prior subacromial decompression likely present. 3. Mild to moderate osteoarthrosis of the glenohumeral joint. 4. Mild residual superior and undersurface spurring of the AC joint. 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 Joint effusion. Left knee: Severe osteoarthritis with a joint effusion. CT/CT head/brain wo IV con IMPRESSION: 1. No acute intracranial abnormalities. 2. No definitive maxillofacial or mandibular fracture identified. The nasal bones appear grossly intact. Orbits appear intact. 3. 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 This was present in 2014 on a cervical MRI and has only minimally increased in size supporting a benign etiology. Differential includes Wharthin tumor, benign mixed tumor, or possibly intraparotid lymph node. CT/CT facial bones wo IV con IMPRESSION: 1. No acute intracranial abnormalities. 2. No definitive maxillofacial or mandibular fracture identified. The nasal bones appear grossly intact. Orbits appear intact. 3. 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 This was present in 2014 on a cervical MRI and has only minimally increased in size supporting a benign etiology. Differential includes Wharthin tumor, benign mixed tumor, or possibly intraparotid lymph node. CT/CT cervical spine wo IV con IMPRESSION: 1. No CT evidence of acute cervical spine fracture or injury. 2. Intact anterior fusion of C5-6 and C6-7. 3. Moderate degenerative spondylosis of the cervical spine. External Record Review External record reviewed: Inpatient record, Office record and Outpatient record Prescription Management I considered prescription management with: Antibiotic Discharge Plan Discharge Clinical Impression: Acute UTI, Abrasion of knee, bilateral, Abrasion of elbow, right, Abrasion of nose, Abrasion of finger of right hand Instructions: Urinary Tract Infection in Men (DC), Abrasion (ED) Additional Instructions: You were evaluated in the emergency department today for injuries after a fall. Your CT scans did not show evidence of bleeding in your brain, fractures to your face or neck. Your x-rays did not show evidence of fractures to your knees. You have multiple abrasions which were cleaned and dressings were applied. We recommend that you keep these dressings in place for 24 hours, then begin changing the dressings and assessing the wounds daily. You can apply a thin layer of bacitracin over the wounds and wash them with soap and water. You are being referred to the wound care center if you need assistance in managing your wounds. If you develop new redness, swelling or thick yellow drainage or redness streaking towards your body from any of your wounds return to the emergency department. You should also return to the emergency department if you develop fever, vomiting or any other new or concerning symptoms. Your urine showed evidence of an infection and you are being treated with antibiotics. Complete the full course as prescribed. We recommend that you follow-up with your primary care provider within the next 2-3 days. Return to the emergency department with new or concerning symptoms. Prescriptions: New cefuroxime axetil 500 mg tablet 500 mg PO BID Qty: 13 0RF No Action FreeStyle Lite Strips Strip 1 strip miscellaneous TID Qty: 300 0RF lancets [FreeStyle Lancets] 28 gauge misc 1 gauge topical TID Qty: 300 0RF doxycycline monohydrate 100 mg capsule 100 mg PO BID 10 Days Qty: 20 0RF lovastatin 40 mg tablet 40 mg PO DAILY 90 Days Qty: 90 0RF metformin 1,000 mg tablet 1,000 mg PO BID 90 Days Qty: 180 0RF metoprolol tartrate 25 mg tablet 25 mg PO BID 90 Days Qty: 180 0RF gabapentin 300 mg capsule 300 mg PO TID 90 Days Qty: 270 1RF ammonium lactate 12 % Lotion 1 appl TOPICAL DAILY aspirin 81 mg Tablet,Delayed Release (Dr/Ec) 81 mg PO DAILY vitamin B complex Capsule 1 cap PO DAILY white petrolatum-mineral oil Lotion 1 ea TOPICAL DAILY melatonin 1 mg tablet 1 mg PO BEDTIME PRN (Reason: Sleep) topiramate 25 mg tablet 25 mg PO BID (DME) ADULT PULL-UPS Extra Large See Rx Instructions .Route .MEDSUPPLY Qty: 100 12RF Rx Instructions: As directed insulin glargine-yfgn [Semglee(insulin glarg-yfgn)Pen] 100 unit/mL (3 mL) insulin pen 24 unit subcut BID semaglutide 1 mg/dose (4 mg/3 mL) pen injector 1 mg subcut QWEEK insulin aspart U-100 [Novolog FlexPen U-100 Insulin] 100 unit/mL (3 mL) insulin pen See Rx Instructions .ROUTE .COMPLEX Rx Instructions: 12 units SQ TID with meals and 10 units SQ with snacks cholecalciferol (vitamin D3) 25 mcg (1,000 unit) capsule 25 mcg PO DAILY mirtazapine 30 mg tablet,disintegrating 30 mg PO BEDTIME sertraline 100 mg tablet 150 mg PO DAILY loperamide [Imodium A-D] 2 mg tablet 2 mg PO Q6H PRN (Reason: loose stool) Qty: 30 1RF peg-electrolyte soln 420 gram recon soln 240 ml PO ONCE PRN (Reason: laxative effect) 1 Days Qty: 4000 0RF Rx Instructions: Start at 6:00pm the evening before procedure, drink one 8oz glass every 15 minutes until complete Referrals: [facility]Provider Group] - 1 week Clinical Impression: Abrasion of nose; Abrasion of knee, bilateral; Abrasion of finger of right hand; Abrasion of elbow, right Print Language: Indonesian
[2025-05-12 08:59] LABS: MANUAL DIFF FLAG NO
[2025-05-12 09:01] LABS: Basophils Absolute Auto 0.1 X10*3/uL (0.0-0.2); Basophils Percent Auto 0.8 % (0-2); Eosinophils Absolute Auto 0.2 X10*3/uL (0.0-0.4); Hematocrit 39.5 % (42.0-52.0); Hemoglobin 13.8 g/dl (14.0-18.0); Imm Gran Abs Auto 0.02 X10*3/uL (0.00-0.03); Imm Gran Pct Auto 0.3 % (0.0-0.4); Lymphocytes Absolute Auto 1.7 X10*3/uL (1.2-4.9); Lymphocytes Percent Auto 22.9 % (20-40); Mean Corpuscular HGB Conc 34.9 g/dl (31.0-36.0); Mean Corpuscular Hemoglobin 31.4 pg (27.0-33.0); Mean Platelet Volume 10.3 fL (9.4-12.4); Monocytes Absolute Auto 0.5 X10*3/uL (0.1-1.2); Monocytes Percent Auto 7.4 % (2-11); Neutrophils Absolute Auto 4.8 x10*3/uL (2.0-8.3); Neutrophils Percent Auto 65.6 % (45-73); Platelet Count 148 X10*3/uL (160-400); Red Blood Count 4.39 X10*6/uL (4.60-5.80); Red Cell Distribution Width 13.2 % (11.0-16.0); White Blood Count 7.3 X10*3/uL (4.8-10.8)
[2025-05-12 09:15] LABS: Appearance Urine Cloudy; Color Urine Yellow; Glucose Urine UA Negative (Negative); Leukocyte Esterase Urine Large (3+) (Negative); Nitrite Urine Positive (Negative); Specific Gravity - Urine 1.015 (1.005-1.025); UMIC TRIGGER UACC YES; Urine Blood Negative (Negative); Urine Ketones Trace mg/dL (Negative); Urine Protein Trace mg/dL (Neg-Trace)
[2025-05-12 09:17] LABS: Alanine Aminotransferase 11 U/L (0-40); Albumin Level 3.8 g/dL (3.5-5.0); Alkaline Phosphatase 55 U/L (39-117); Anion Gap 9 (12-20); Aspartate Amino Transferase 17 U/L (5-37); Blood Urea Nitrogen 13 mg/dL (9-16); Carbon Dioxide 25 mmol/L (22-29); Chloride 107 mmol/L (96-108); Creatinine Clr Calc Pharmacy 108.7; Estimated Glomerular Filt Rate > 60; Glucose Random 188 mg/dL (60-115); Magnesium 1.5 mg/dL (1.6-2.6); Potassium 3.5 mmol/L (3.3-5.1); Sodium 137 mmol/L (135-145); Total Protein 6.4 g/dL (6.5-8.0)
[2025-05-12 09:20] LABS: Bacteria Urine 4+ (None Seen); Hyaline Casts Urine 0-2 /LPF (0-2); RBC Urine 0-2 /HPF (0-2); Squamous Epithelial Cell Urine 0-2 /HPF (0-2); UACC Culture Trigger YES; WBC Urine >50 /HPF (0-5)
[2025-05-12 09:38] LABS: Influenza A PCR NEGATIVE (Negative); Influenza B PCR NEGATIVE (Negative); Resp Syncy Virus RNA Qual PCR NEGATIVE (Negative); SARS COV2 PCR INHOUSE NEGATIVE (Negative)
[2025-05-12 10:07] VITALS: BP 139/66; PULSE 62; RESP 14; TEMP 36.6; O2SAT 97
[2025-05-12] MEDS: cefuroxime axetiL 500 MG TABLET PO (10:31)
[2025-05-12] MEDS: Magnesium Sulfate/H2O 2 GM/50 ML PIGGYBACK IV (10:31)
[2025-05-12] MEDS: Bacitracin Oint 0.9 GM PACKET 5 APPL TOPICAL (10:34)
--- NOTE | 2025-05-12 11:07 | MHC.EDTECH ---
Abrasions cleaned 3 R fingers, R elbow, bilat knees, and nose. Petroleum form and nonstick gauze applied and wrapped.
[2025-05-12 12:06] VITALS: PULSE 70; RESP 14; TEMP 36.1; O2SAT 97
[2025-05-12 13:37] VITALS: BP 138/72; PULSE 71; RESP 18; TEMP 36.1; O2SAT 97
[2025-05-12 14:01] VITALS: BP 138/72; PULSE 71; RESP 18; TEMP 36.1; O2SAT 97
== END 2025-05-12 14:01 | disposition home or self-care (01) ==
PROVIDERS: Emergency Provider Emergency Medicine; PCP Internal Medicine
DX: S80.211A Abrasion, right knee, initial encounter (principal); S80.212A Abrasion, left knee, initial encounter; S50.311A Abrasion of right elbow, initial encounter; S00.31XA Abrasion of nose, initial encounter; S60.419A Abrasion of unspecified finger, initial encounter; N39.0 Urinary tract infection, site not specified; E11.9 Type 2 diabetes mellitus without complications; M25.511 Pain in right shoulder; I10 Essential (primary) hypertension; M54.2 Cervicalgia; F17.210 Nicotine dependence, cigarettes, uncomplicated; Y93.9 Activity, unspecified; X58.XXXA Exposure to other specified factors, initial encounter; Y92.9 Unspecified place or not applicable; Y99.8 Other external cause status; Z79.899 Other long term (current) drug therapy; Z79.4 Long term (current) use of insulin; Z03.818 Encounter for observation for suspected exposure to other biological agents ruled out
CPT/HCPCS: 0241U; 70450; 70486; 72125; 73030; 73560; 80053; 81001; 83735; 85025; 87086; 87088; 87186; 93005; 96365; 96366; 99284; 99285; J3475

== ENCOUNTER → 2025-05-12 08:20 | Outpatient (BNV) | payer MEDICARE, SELFPAY | PROVIDERS: Emergency Provider Emergency Medicine; PCP Internal Medicine; Visit Provider Internal Medicine | DX: Z13.6 Encounter for screening for cardiovascular disorders (principal); W19.XXXA Unspecified fall, initial encounter | CPT/HCPCS: 93010 ==

== ENCOUNTER → 2025-05-12 08:56 | Outpatient (BNV) | payer MEDICARE, SELFPAY | PROVIDERS: Emergency Provider Emergency Medicine; PCP Internal Medicine; Visit Provider Radiology Diagnostic Radiology | DX: M47.812 Spondylosis without myelopathy or radiculopathy, cervical region (principal); M43.22 Fusion of spine, cervical region; K11.8 Other diseases of salivary glands; M19.011 Primary osteoarthritis, right shoulder; M25.462 Effusion, left knee; M17.0 Bilateral primary osteoarthritis of knee | CPT/HCPCS: 70450; 70486; 72125; 73030; 73560 ==

== ENCOUNTER 2025-07-13 12:49 | Outpatient (AMB) | payer MEDICARE, SELFPAY ==
--- OUTSIDE RECORDS SUMMARY | 2024-07-27 09:00 | XMS_ITS | Encounter Summary ---
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 This section includes the names of all active insurance providers for the patient. Insurance Provider Type of Coverage Plan Name Start of Policy Coverage End of Policy Coverage Group Number Member ID Insurance Provider's Telephone Number Policy Adams's Name Patient's Relationship to Policy Adams [facility] ([facility]) MEDICARE ADVANTAGE [facility] ([facility]) Nov 17, 2017 NONE [id number] DARRELL HUTCHINS PATIENT [facility] ([facility]) MEDICARE ADVANTAGE [facility] ([facility]) Nov 17, 2017 [id number] DARRELL HUTCHINS PATIENT MEDICAID MEDICAID [facility] Jan 15, 2017 MEDICAI D [id number] DARRELL HUTCHINS PATIENT Selected Encounter This section includes the information on record at [facility] for the Encounter. Date/Time Encounter Type Encounter Description Reason Provider Source Jul 27, 2024 01:00 PM OFFICE O/P EST MOD 30 MIN [facility] - IND ICD-10-CM F32.9 Major depressive disorder, single episode, unspecified EUGENE WORKMAN G IH Encounter Template Text not used by [place] Assessments - Encounter Diagnoses This section includes the primary and secondary diagnoses documented for the Encounter. Date/Time Primary/Secondary Diagnosis Diagnosis Name Provider Source Jul 27, 2024 05:58 PM PRIMARY Major depressive disorder, single episode, unspecified [place] WORKMANHEN Nima [facility] Plan of Treatment: Future Appointments (+ 6 months) and Future Tests (+/- 45 days) The Plan of Treatment section includes future care activities for the patient [facility] This section includes future appointments and future orders which are active, pending or scheduled. Future Appointments This section includes appointments that were scheduled to occur 6 months from the date of the Encounter, up to a maximum of 20 appointments. The data comes from all [place] treatment facilities. Appointment Date/Time Appointment Type Appointme nt Facility Name Jul 30, 2024 02:30 PM AM[facility]ULATORY [facility]ICINE [facility] [place] [facility] Aug 10, 2024 01:00 PM AMBULATORY - PSYCHIATRY [facility] Aug 10, 2024 02:00 PM AMBULATORY - PSYCHIATRY [facility] Aug 11, 2024 03:00 PM AM[facility]ULATORY [facility] MEDICINE [facility] [place] [facility] Aug 30, 2024 12:30 PM AMBULATORY - MEDICINE [facility] [place] [facility] Sep 08, 2024 01:30 PM AMBULATORY - PSYCHIATRY [facility] Sep 08, 2024 02:30 PM AMBULATORY - MEDICINE [facility] [place] [facility] Sep 10, 2024 02:00 PM AMBULATORY - MEDICINE [facility] Sep 10, 2024 03:15 PM AMBULATORY - MEDICINE [facility] [place] [facility] Sep 17, 2024 08:00 AM AMBULATORY - MEDICINE [facility] [place] [facility] Oct 06, 2024 03:30 PM AMBULATORY - PSYCHIATRY [facility] Oct 28, 2024 03:00 PM [facility] Nov 02, 2024 12:00 PM AMBULATORY - MEDICINE [facility] [place] [facility] Nov 05, 2024 03:30 PM AMBULATORY - MEDICINE [facility] [place] [facility] Nov 08, 2024 01:00 PM AMBULATORY - MEDICINE [facility] [place] [facility] Nov 25, 2024 09:00 AM [facility] Nov 26, 2024 02:05 PM [facility] Nov 30, 2024 02:00 PM AMBULATORY - PSYCHIATRY [facility] Nov 30, 2024 03:00 PM AMBULATORY - PSYCHIATRY [facility] Dec 07, 2024 10:30 AM [facility] Lab Results: +/- 30 days of the encounter This section includes the Chemistry and Hematology Lab Results on record with [facility] for the patient. Radiology Reports and Pathology Reports are provided separately, in subsequent sections. Lab Results This section contains the Chemistry/Hematology Results that were resulted 30 days before or 30 daysafter the date of the Encounter. Date/Time Source Result Type Result - Unit Interpretation Reference Range Specimen Type Comment Aug 20, 2024 01:47 PM [facility] HEMOGLOBIN A1C PANEL BLOOD Specimen Type: BLOOD Comment: Values obtained from A1C measurements can vary. For atypical A1C assays, a reported value of 7.0 could actually be between 6.72 and 7.28 if measured by a reference method. A reported value of 9.0 could actually be between 8.73 and 9.27. Ref: http://www.ngsp .org/CAPdata.as p Ordering Provider: CHRISTI PEDRO Report Released Date/Time: Jun 20, 2024 08:45 PM Reporting Lab: [address] [id number] Performing Lab: [address] [id number] HEMOGLOBIN A1C 7.4 H 4.0-5.6 Social History: Smoking Status (Most current) and Tobacco Use (All prior to encounter date) This section includes the most current, and the historical, smoking and tobacco- related health factors from the [facility] facility where the Encounter took place. Current Smoking Status This section includes the most current smoking, or tobacco-related health factor, from the [facility] facility where the Encounter took place. Date/Time Current Smoking Status Comment Kiki edmonds Aug 24, 2021 11:30 AM VA-TOBACCO USER EVERY DAY [facility] Tobacco Use History This section includes a history of the smoking, or tobacco-related health factors, that were collected on or before the date of the Encounter. The data comes from the [facility] facility where the Encounter took place. Date/Time Smoking Status/Tobacco Use Comment F acility Aug 24, 2021 11:30 AM VA-TOBACCO USE ADVICE [facility] Aug 24, 2021 11:30 AM VA-TOBACCO USE DIRECTOR OF COMMUNITY CENTER NO [facility] Aug 24, 2021 11:30 AM VA-TOBACCO USE MED NO [facility] Aug 24, 2021 11:30 AM VA-TOBACCO USE WI 30 MIN OF WAKEUP BOL[facility]AS Aug 24, 2021 11:30 AM VA-TOBACCO USER EVERY DAY [facility] May 11, 2020 09:35 AM VA-TOBACCO DOESNT USE WI 30 MIN WAKEUP [facility] May 11, 2020 09:35 AM VA-TOBACCO USE 30 YEARS OR MORE [facility] May 11, 2020 09:35 AM VA-TOBACCO USE ADVICE [facility] May 11, 2020 09:35 AM VA-TOBACCO USE [facility]OR OF COMM[facility] C[facility] NO [facility] May 11, 2020 09:35 AM VA-TOBACCO USE MED NO [facility] May 11, 2020 09:35 AM VA-TOBACCO USER EVERY DAY [facility] Jan 28, 2019 10:44 AM VA-TOBACCO DOESNT USE WI 30 MIN WHITLASHUP [facility] Jan 28, 2019 10:44 AM VA-TOBACCO USE 5 TO 15 YEARS [facility] Jan 28, 2019 10:44 AM VA-TOBACCO USE ADVICE [facility] Jan 28, 2019 10:44 AM VA-TOBACCO USE DIRECTOR OF COMM[facility]ITY C[facility] NO B[facility]AS Jan 28, 2019 10:44 AM VA-TOBACCO USE MED [facility] Jan 28, 2019 10:44 AM VA-TOBACCO USER EVERY DAY B[facility] Nov 06, 2017 09:56 AM CURRENT SMOKER YADIRA [facility] Nov 06, 2017 09:56 AM V1-PT NOT INTEREST ED IN QUIT TOBACCO USE [facility] Sep 15, 2017 02:08 PM CURRENT SMOKER reports smoking about 1/2 pack small cigars/day BOLINAS Encounter Notes: All associated encounter notes This section contains the clinical notes associated to the Encounter. Date/Time Encounter Note(s) Provider Source Jul 27, 2024 12:57 PM PSYCHIATRY NOTE: LOCAL TITLE: PSYCHIATRY NOTE STANDARD TITLE: PSYCHIATRY NOTE DATE OF NOTE: JUL 27, 2024@12:57 ENTRY DATE: JUL 27, 2024@12:57:29 AUTHOR: DENISSE WORKMAN EXP COSIGNER: URGENCY: STATUS: COMPLETED 30 min for encounter, including chart review, interview, charting chart reviewed Patient stable. He is coping with the ongoing stressors of medical problems, but he again seems more positive about this. Overall, patient talkative and pleasant and seems more upbeat. Improved mood. Presents is less depressed. PTSD symptoms fluctuate. Affect brightens appropriately. The patient denies SI and violent ideation. Thoughts are well organized. No paranoid or delusional content presented. Denies hallucinations. Speech normal. Cognitive exam grossly unchanged. Insomnia fluctuates. Again, has interests, for example reading. As with each interview, the patient clearly enjoys talking, telling stories. He again has sense of humor. He again likes to talk about current events. The patient has undergone switch from Zoloft to Cymbalta and appears to be benefiting. See below for medications Denies psych med side effects. Denies daytime sedation. Reports med compliance h/o heavy alcohol -- stopped about 5 yrs ago, except previously reported 2 or less drinks per month on ave; denies recent cannabis; denies street drugs Pt ; Pt is close to his son, who lives w him. 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 Cellulitis and abscess of lower leg 2. Heart murmur 3. Cardiac arrhythmia 4. Actinic keratosis 5. Headache 6. Insomnia 7. Unsteady gait 8. Vitamin D Deficiency ([facility] [id number]) 9. Vitamin B12 Deficiency ([facility] [id number]) 10. Diarrhea 11. CAD - Coronary Artery Disease ([facility] [id number]) 12. Pain of left knee joint 13. Tobacco user 14. Peripheral venous insufficiency 15. Onychomycosis 16. History of cholecystectomy 17. Chronic back pain 18. Neck pain 19. Co-Management 20. Depression ([facility] [id number]) 21. Hyperglycemia due to type 2 diabetes mellitus 22. Hyperlipidemia 23. Essential hypertension 24. Neuropathy due to type 2 diabetes mellitus 25. Posttraumatic stress disorder Active Outpatient Medications (including Supplies): Active Outpatient Medications Status ======= 1) ALCOHOL PREP PAD USE 1 PAD TOPICALLY THREE TIMES A ACTIVE DAY TO CLEAN SKIN FOR INJECTION ETC 2) AMMONIUM LACTATE 12% LOTION APPLY SMALL AMOUNT ACTIVE TOPICALLY ONCE DAILY FOR DRY SKIN FOR DRY IRRITATED SKIN 3) DULOXETINE HCL 60MG EC CAP TAKE ONE CAPSULE BY MOUTH ACTIVE (S) ONCE DAILY DEPRESSION 4) GLUCOSE 4GM CHEW TAB CHEW THREE TO FOUR TABLET(S) BY ACTIVE MOUTH NEEDED TO TREAT LOW BLOOD SUGAR LESS THAN 70 5) GLUCOSE SENSOR DEXCOM G7 USE 1 SENSOR DIRECTED ACTIVE EVERY 10 DAYS 6) INSULIN,ASPART(EQV-NOVLG)100UN/ML FLXPEN INJECT 14 ACTIVE UNITS SUBCUTANEOUSLY TWICE DAILY 15 MINUTES BEFORE MEALS 7) INSULIN,GLARGINE-YFGN 100UNIT/ML PEN 3ML INJECT 22 ACTIVE UNITS SUBCUTANEOUSLY TWICE DAILY FOR DIABETES 8) MELATONIN 1MG CAP/TAB TAKE SIX CAPSULE/TABLET BY ACTIVE MOUTH AT BEDTIME NEEDED INSOMNIA 9) MIRTAZAPINE 30MG TAB TAKE ONE TABLET BY MOUTH AT ACTIVE BEDTIME FOR DEPRESSION/MOOD 10) MUPIROCIN 2% OINT APPLY THIN LAYER TOPICALLY EVERY ACTIVE OTHER DAYS 11) NEEDLE,PEN 31G,5MM USE 1 NEEDLE SUBCUTANEOUSLY FOUR ACTIVE TIMES A DAY FOR USE WITH PEN DEVICE 12) SEMAGLUTIDE 1MG/0.75ML INJ PEN 3ML INJECT 1MG ACTIVE SUBCUTANEOUSLY ONCE A WEEK FOR TYPE 2 DIABETES MELLITUS 13) TOPIRAMATE 25MG TAB TAKE ONE TABLET BY MOUTH TWICE ACTIVE DAILY NEEDED FOR ANXIETY/HEADACHE (OFF LABEL FOR ANXIETY) Active Non-VA Medications Status ======= 1) Non-VA ASPIRIN 81MG EC TAB 81MG BY MOUTH EVERY DAY ACTIVE 2) Non-VA CYANOCOBALAMIN TAB BY MOUTH ACTIVE 3) Non-VA GABAPENTIN 300MG CAP 300MG BY MOUTH THREE ACTIVE TIMES A DAY 4) Non-VA LOVASTATIN 40MG TAB 40MG BY MOUTH EVERY DAY ACTIVE 5) Non-VA METFORMIN HCL 1000MG TAB 1000MG BY MOUTH TWICE ACTIVE DAILY 6) Non-VA METOPROLOL TARTRATE 25MG TAB 25MG BY MOUTH ACTIVE EVERY DAY 7) Non-VA VITAMIN B COMPLEX CAP,ORAL BY MOUTH ACTIVE 8) Non-VA VITAMIN D3 (CHOLECALCIFEROL) TAB BY MOUTH ACTIVE 21 Total Medications PSYCHIATRIC MEDICATION HISTORY: amitryptiline -- low dose for pain trazodone -- not help sleep zoloft topamax for NAIK gabapentin for pain zaleplon -- stopped , ? some benefit pt stopped sonata IMPRESSION: DSM-5 Unspecified depressive do --improved Consider PTSD -- from childhood and ? Alcohol use do -- yrs ago -- reports very limited for the past 5 yrs frequent HAs -- sees neuro PLAN: Performed careful risk assessment. See C-SSRS 04/28/24 - same today. The patient denies suicidal and violent ideation (but has past history of intermittent suicidal ideation, without plan or intent) The pt is probably low risk for suicide or violence, but the [facility] Crisis Line information and number were reviewed w patient as a precaution. The patient also understands to call 911 or to go to ER in the event of an emergency. Pt has safety plan, as a precaution, patient has copy and reviewed with patient today. Patient also wears a wristband with the crisis number. The patient also understands to call 911 or to go to ER in the event of an emergency. Also note that the patient is active with some of the internal coping strategies on safety plan as part of his usual routine. Also, see Dr. Perla 05/04 note. Also I agree with 's discussion 05/04 about the patient's suicide risk- that acute risk is low and chronic risk may be intermediate. This is the reason for the safety plan, which the patient endorses as effective - see 05/04/[address] Perla. And I agree that the patient's concern about the welfare of his son is a significant protective factor. I reviewed with Dr. Perla previously and she agreed with above reasoning continue psychotherapy w Dr Perla See 05/09 primary care addendum to my 03/17 no-show note, also see my subsequent addenda to the same note. Primary care recommended considering discontinuing Zoloft and mirtazapine due to the patient's prolonged QTC. I again discussed with the patient about this issue. Last appointment we decided to change Zoloft to Cymbalta, and we are in the midst of doing this. We also discussed considering tapering Remeron, depending upon how patient does with Cymbalta trial. But no change in Remeron today. Also see below for more discussion. Patient given written instructions for medication changes The patient completed the Zoloft taper, now off Zoloft INCREASE CYMBALTA TO 60 MG DAILY for depression, patient has improved in terms of depression, but increase dose to further improve response CONTINUE REMERON 30 MG QHS to augment Cymbalta for mood/anxiety/ptsd and may help sleep ; I reviewed risk of next day sedation , falling, wt gain w pt --patient denies side effects, patient feels benefits outweigh risks -- pt tolerates well. But we may consider tapering this off, if the patient does well with switch from Zoloft to Cymbalta, but no change today in Remeron CONTINUE TOPAMAX 25 MG BID for anxiety and NAIK -- reviewed w pt this is off label for anxiety -- good response; we discussed considering simplifying medication by trying to taper this, but patient feels it helps and wants to continue it. He feels benefits outweigh risk. We decided against prazosin for nightmares because the side effect profile. CONTINUE MELATONIN 6 MG QHS WHEN NECESSARY INSOMNIA, helpful for sleep. Reviewed side effect profile including risk of next-day sedation with patient. Patient denies side effects. The discussion with patient about treatments including medications involved shared decision making. The patient was educated about the rationale and plan for the psychiatric medications. Medication instructions were reviewed with the patient. Alternatives to treatment were discussed with the patient. The side effect profile of the psychiatric medications was reviewed with the patient. This also included discussion of potential drug interactions associated with psychiatric medication. The patient discussed/verbalized back the understanding of the medication, side effects, and the plan/instructions, and the patient asked good questions. The patient demonstrated reasonable understanding of the medication side effects and the above-mentioned issues. The benefits of psychiatric medications outweigh risks for this patient. The patient consents to medication treatment. I asked the patient to call me or to come to open access if the patient does not like the effect of psychiatric medication or if has side effects with psychiatric medication. Return to clinic about 1-2 mo or sooner through open access if needed The patient to follow-up with primary care about medical problems As noted last visit, additional information: (I wrote this information in response to primary care's notification about the increased QTC) --fortunately both zoloft and remeron are thought to contribute only very modestly to QTc prolongation (please see Up to Date review) - so probably not an important factor for this pt; and because of his depression, he needs antidepressant coverage (among antidepressants zoloft and remeron are at low end of being thought to contribure to QTc prolongation, especially compared to some other meds) - so benefits outweigh risks at this point. Reviewed with my colleague Dr. Lopez about this and agrees with the above. But out of abundance of caution, we have changed to cymbalta from zoloft (we had already been considering cymbalta trial to try to further improve tx of depression and may help pain) ; and cymbalta is thought to have even lower effect on QTc (if any) according to Up to Date. And then if patient does well with this change, will consider tapering Remeron, depending upon course Medication Reconciliation: Outpatient: Has the patient been taking medications as documented in the EMLR? YES: The patient has been taking medications as documented in the EMLR. Essential Medication List for Review used to complete this medication reconciliation. INCLUDED IN THIS LIST: Alphabetical list of active outpatient prescriptions [facility]) and dispensed from another [facility] or [facility] facility (remote) as well as inpatient orders (local, pending and active), local clinic medications, locally documented non-VA medications, and local prescriptions that have or been discontinued in the past 90 days. - All changes in medications, including all non-VA/Herbal/OTC medications were entered into CPRS. - If there were any medications the patient should no longer take, they were discontinued. - The patient/caregiver was instructed to update this list, discard old lists, and take this list to the next appointment, whether with a [facility] or non-VA provider. /caio/ DENISSE WORKMAN MD STAFF PSYCHIATRIST Signed: 07/27/2024 17:58 DENISSE WORKMANFIELD
--- OUTSIDE RECORDS SUMMARY | 2024-07-30 10:30 | XMS_ITS | Encounter Summary ---
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 Name Role Phone CHRISTI ARIAS Primary [...] Name Patient's Relationship to Policy [facility] ([facility]) MEDICARE ADVANTAGE [facility] ([facility]) Nov 17, 2017 NONE [id number] DARRELL HUTCHINS PATIENT [facility] (R) MEDICARE ADVANTAGE [facility] ([facility]) Nov 17, 2017 [id number] DARRELL HUTCHINS PATIENT MEDICAID MEDICAID [facility] Jan 15, 2017 MEDICAI D [id number] DARRELL HUTCHINS PATIENT Selected Encounter This section includes the information on record at CT for the Encounter. Date/Time Encounter Type Encounter Description Reason Provider Source Jul 30, 2024 02:30 PM MTMS BY PHARM ADDL 15 MIN CLINICAL PHARMACY ICD-10-CM E11.65 Type 2 diabetes mellitus with hyperglycemia DARIO MIKE [facility] Encounter Template Text not used by CT Assessments - Encounter Diagnoses This section includes the primary and secondary diagnoses documented for the Encounter. Date/Time Primary/Secondary Diagnosis Diagnosis Name Provider Source Aug 02, 2024 08:59 AM PRIMARY Type 2 diabetes mellitus with hyperglycemia JACQUELINE MIKE [place] Plan of Treatment: Future Appointments (+ 6 months) and Future Tests (+/- 45 days) The Plan of Treatment section includes future care activities for the [facility] This section includes future appointments and future orders which are active, pending or scheduled. Future Appointments This section includes appointments that were scheduled to occur 6 months from the date of the Encounter, up to a maximum of 20 appointments. The data comes from all CT treatment facilities. Appointment Date/Time Appointment Type Appointme nt Facility Name Aug 10, 2024 01:00 PM AMBULATORY - PSYCHIATRY [facility] Aug 10, 2024 02:00 PM AMBULATORY - PSYCHIATRY [facility] Aug 11, 2024 03:00 PM [facility] [place] [facility] Aug 30, 2024 12:30 PM AM[facility]ULATORY [facility]ICINE [facility] [place] [facility] Sep 08, 2024 01:30 PM AMBULATORY - PSYCHIATRY [facility] Sep 08, 2024 02:30 PM AMBULATORY [facility] MEDICINE [facility] [place] [facility] Sep 10, 2024 02:00 PM AMBULATORY [facility] Sep 10, 2024 03:15 PM AMBULATORY - MEDICINE [facility] [place] [facility] Sep 17, 2024 08:00 AM AMBULATORY - MEDICINE [facility] [place] [facility] Oct 06, 2024 03:30 PM AMBULATORY - PSYCHIATRY [facility] Oct 28, 2024 03:00 PM AM[facility]ULATORY [facility] Nov 02, 2024 12:00 PM AMBULATORY - MEDICINE [facility] [place] [facility] Nov 05, 2024 03:30 PM AMBULATORY - MEDICINE [facility] [place] [facility] Nov 08, 2024 01:00 PM AMBULATORY - MEDICINE [facility] [place] [facility] Nov 25, 2024 09:00 AM AMBULATORY - NONE [facility] [place] [facility] Nov 26, 2024 02:05 PM AMBULATORY - MEDICINE [facility] Nov 30, 2024 02:00 PM AMBULATORY - PSYCHIATRY [facility] Nov 30, 2024 03:00 PM AMBULATORY - PSYCHIATRY [facility] Dec 07, 2024 10:30 AM AMBULATORY - MEDICINE [facility] Dec 17, 2024 12:00 PM AMBULATORY - MEDICINE [facility] Lab Results: +/- 30 days of the encounter This section includes the Chemistry and Hematology Lab Results on record with CT for the patient. Radiology Reports and Pathology Reports are provided separately, in subsequent sections. Lab Results This section contains the Chemistry/Hematology Results that were resulted 30 days before or 30 daysafter the date of the Encounter. Date/Time Source Result Type Result - Unit Interpretation Reference Range Specimen Type Comment Aug 20, 2024 01:47 PM [facility] HEMOGLOBIN A1C PANEL BLOOD Specimen Type: BLOOD [...] Jun 20, 2024 08:45 PM Reporting Lab: [address] [id number] Performing Lab: [address] [address] HEMOGLOBIN A1C 7.4 H 4.0-5.6 Social History: Smoking Status (Most current) and Tobacco Use (All prior to encounter date) This section includes the most current, and the historical, smoking and tobacco- related health factors from the CT facility where the Encounter took place. Current Smoking Status This section includes the most current smoking, or tobacco-related health factor, from the CT facility where the Encounter took place. Date/Time Current Smoking Status Comment Kiki edmonds Aug 24, 2021 11:30 AM VA-TOBACCO USER EVERY DAY [place] Tobacco Use History This section includes a history of the smoking, or tobacco-related health factors, that were collected on or before the date of the Encounter. The data comes from the CT facility where the Encounter took place. 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 Nov 06, 2017 09:56 AM V1-PT NOT INTEREST ED IN QUIT TOBACCO USE [place] Sep 15, 2017 02:08 PM CURRENT SMOKER reports smoking about 1/2 pack small cigars/day [place] Encounter Notes: All associated encounter notes This section contains the clinical notes associated to the Encounter. Date/Time Encounter Note(s) Provider Source Jul 30, 2024 02:48 PM PHARMACY OUTPATIEN T NOTE: LOCAL TITLE: PHARMACY CLINIC NOTE STANDARD TITLE: PHARMACY OUTPATIENT NOTE DATE OF NOTE: JUL 30, 2024@14:48 ENTRY DATE: JUL 30, 2024@14:49:05 AUTHOR: LAMBERTO MIKE COSIGNER: URGENCY: STATUS: COMPLETED Patient Name: LISSETTE HUTCHINS was seen via F for follow-up for diabetes anagement treatment. : Dec Age: 74 Sex: MALE Race: WHITE Subjective: Pt came to f/up. Pt states he is doing ok. He continues to have problems w/ his son who lives w/ him who struggles with a difficult case of Crohns disease. Per prev: Pt presents for a follow up after meeting w/ CPP. Pt admits to having increased the dose of ozempic but just recently last Friday. Pt states he is doing little better and excited to start abx prescribed to the pt today by pcp Per prev: pt has not been seen by CPP since 11/2023. Pt was very nice and apologetic (unnecessarily) for missing appointments. Pt admits he has hard time w/ PTSD last 2-3 months. He also complains of leg pain and difficulty walking. This is very depressing to him. He feels helpless and feels that nobody really is trying to help him with this problem. He is worried that he won't be able to walk someday and this thought really scares him. His son who lives with him has his own difficulties w/ Crohns disease. He is not happy w/ his job at [employer]. Pt expresses desire to leave [place] he does not like living here anymore. Pt also adds BG have been very high it's very frustrating to him. He continues to use dexcom sensor. Pt has busy month upcoming in April with doctors appt - GI ; heart , etc. Per prev: Pt went to [facility] where infection was found in his legs. He has f/up with them after xm. Currently taking ABX for the infection. f/up w/ pcp on 10/30/23; pt also reports running out of ozempic in the meantime. He restarted last week or so ? Per prev: Pt is being followed after he has been trained on the Dexcom G7. Pt states he is doing well on it. Pt states his hip is hurting he is looking forward to seeing PCP in August. He will be obtaining more labs as well. Per prev: Pt just saw Dr. Shaw. He states he has been down a lot lately. His son continues to live with him and depends on him for a ride. 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 He has severe Crohn's disease. Per prev: Pt presents for a f/up stating the insulin dose is not working. Pt states his BG have been running hihg. He reports tolerating semaglutide very well w/ no issues i.e. ADR's. Per prev: Pt was last seen on 02/14/23 in which his insulin was changed back to basal/bolus from mixed insulin. Pt confirmed he is no longer using mixed insulin and reports doing very well. Pt was recommended to trial semaglutide which was reviewed and approved bu optometry (next f/u on 04/04). Pt understands the risk/benefits of GLP-1 agents. Today, pt presents to review bg and receive training for semaglutide which he will start on 02/23/23 (per pt wants to administer on Sundays). Pt reports taking his dm medications as prescribed- insulin glargine 30 units BID and insulin aspart - 12 units with snack, 14 units with dinner. Per pcp notes on 08/06/23: #L knee pain -patient fell earlier this week, left knee swelling with pain, limping, limited range of motion would like to see Ortho No previous knee surgeries injuries #PVI- f/w nonVA PCP, he was seeing wound care weekly [facility] and was dicharged spring 2022- per pt he was told they can not help him anymore. per pt he was supposed to see vascualar surgery at [facility] for evaluation of LE edema, but he he was never scheduled. not wearing compression stockings regularly Plan to readdress PVI with non-VA PCP visit this month #obesity BMI 33 lost 10lb since last visit #DM2 - managed by non VA PCP /CPP Currently taking: Non-VA METFORMIN 1000MG BID SEMAGLUTIDE 0.5MG ASPART 10-12 units BID GLARGINE 20 units BID no sugar containg drinks likes candies denies p/p/p Target Goals: A1C: 7%; FB-130 mg/dL; 2HRS PP <180mg/dL. Allergies: Patient has answered NKA PERTINENT INFORMATION: Active problems - Computerized Problem List is the source for the followin. CAD - Coronary Artery Disease ([facility] [id number]) 2. Pain of left knee joint 3. Tobacco user 4. Peripheral venous insufficiency 5. Onychomycosis 6. History of cholecystectomy 7. Chronic back pain 8. Neck pain 9. Co-Management 10. Depression ([facility] [id number]) 11. Hyperglycemia due to type 2 diabetes mellitus 12. Hyperlipidemia 13. Essential hypertension 14. Neuropathy due to type 2 diabetes mellitus 15. Posttraumatic stress disorder Objective: Diabetes Medication Regimen: - Insulin glargine (Semglee) 26 units twice daily - typically 12 noon and 12 midnight - Insulin aspart( Novolog) BID-TID for small meals take 12 units; for large meals + snacks 12 units - take 15 minutes prior to meals if meal is skipped, skip Novolog. -- semaglutide 1 mg weekly (Sundays) - pt started ozempic on 02/21/23 ; recently restarted early October, - started this past friday on incresaed dose of 1 mg weekly 05/02/24 - metformin 1000 mg bid Previous DM Medications: -- glimepiride -- Novolog 70/30 Adherence: Oral meds: denies missed doses Insulin: denies missed doses Labs: HEMOGLOBIN A1C TREND Collection DT Spec HGBA1c 05/04/2024 14:38 BLOOD 8.7 H 08/06/2023 14:47 BLOOD 6.4 H 07/08/2023 09:41 BLOOD 6.2 H 12/31/2022 13:45 BLOOD 8.7 H 11/30/2021 11:17 BLOOD 8.0 H CBC TREND Collection DT Spec WBC RBC HGB HCT MCV MCH PLT 05/04/2024 14:38 BLOOD 10.19 4.49 14.2 41.7 92.9 31.6 181 08/06/2023 14:47 BLOOD 6.63 4.63 14.2 41.4 89.4 30.7 161 07/08/2023 09:40 BLOOD 7.61 4.59 14.1 41.2 89.8 30.7 179 12/31/2022 13:45 BLOOD 9.78 4.84 14.9 43.9 90.7 30.8 133 L 11/30/2021 11:17 BLOOD 9.44 4.93 14.8 44.5 90.3 30.0 169 CHEM 7 TREND LAB CUMULATIVE SELECTED Collection DT Spec GLUCOSE BUN CREATIN Sodium K+/Pot CL CO2 05/04/2024 14:38 SERUM 164 H 17 0.80 138 4.0 108 21 07/08/2023 09:40 SERUM 124 H 15 0.76 139 3.4 L 105 24 12/31/2022 13:45 SERUM 230 H 11 0.75 133 L 4.2 101 23 11/30/2021 11:17 SERUM 71 12 0.74 136 3.6 104 23 04/27/2021 09:09 SERUM 117 H 12 0.75 137 3.5 102 25 LAB CUMULATIVE SELECTED 2 No selection items chosen for this component. CHEM 7 Results Collection DT Spec Sodium K+/Pot CL CO2 GLUCOSE BUN 05/04/2024 14:38 SERUM 138 4.0 108 21 164 H 17 07/08/2023 09:40 SERUM 139 3.4 L 105 24 124 H 15 12/31/2022 13:45 SERUM 133 L 4.2 101 23 230 H 11 11/30/2021 11:17 SERUM 136 3.6 104 23 71 12 04/27/2021 09:09 SERUM 137 3.5 102 25 117 H 12 06/08/2020 09:32 SERUM 137 3.7 103 23 219 H 13 11/01/2019 08:22 SERUM 142 3.3 L 110 23 156 H 7 10/27/2017 09:13 SERUM 138 3.7 105 27 148 H 10 LIPID PANEL TREND Collection DT Spec CHOL HDL CHO/HDL LDL-d LDL-c TRIG 05/04/2024 14:38 SERUM 177 53 3.3 99 127 08/06/2023 14:47 SERUM 133 37 L 3.6 68 141 12/31/2022 13:45 SERUM 167 48 3.5 100 97 11/30/2021 11:17 SERUM 163 45 3.6 96 111 04/27/2021 09:09 SERUM 155 31 L 5.0 93 154 H THYROID PANEL Collection DT Specimen Test Name Result Units Ref Range 05/04/2024 14:38 SERUM TSH 1.32 uIU/mL 0.35 - 5.00 VITAMIN D 25-OH Collection DT Specimen Test Name Result Units Ref Range 05/04/2024 14:38 SERUM VITAMIN D (25-OH) 27 ng/mL 20 - 50 SrCr (last 6 weeks): CREATININE-EGFR 05/04/24 14:38 0.80 CRCL IBW: CrCl(est): 109.3 mL/min (Creat:0.80 05/04/24) CRCL ACT: 100 mL/min CRCL ADJ: 109.3 mL/min (05/04/24) LFTS: WNL (07/2023) Vitals: Weight (BMI): 257.8 lb [116.94 kg] (05/06/2024 10:21) Height: 74 in [188.0 cm] (02/18/2019 10:31) BMI: 33.2 Active and Recently Outpatient Medications (including Supplies): Active Outpatient Medications Status Active Outpatient Medications (including Supplies): ALCOHOL PREP PAD USE 1 PAD TOPICALLY THREE TIMES A DAY TO ACTIVE CLEAN SKIN FOR INJECTION ETC DOXYCYCLINE HYCLATE 100MG TAB TAKE ONE TABLET BY MOUTH PENDING TWICE DAILY GLUCOSE 4GM CHEW TAB CHEW THREE TO FOUR TABLETS BY MOUTH ACTIVE NEEDED DIRECTED TO TREAT LOW BLOOD SUGAR BELOW 7- GLUCOSE SENSOR DEXCOM G7 USE 1 SENSOR DIRECTED EVERY 10 ACTIVE DAYS INSULIN,ASPART(EQV-NOVLG)100UN/ML FLXPEN INJECT 14 UNITS ACTIVE SUBCUTANEOUSLY TWICE DAILY 15 MINUTES BEFORE MEALS INSULIN,GLARGINE-YFGN 100UNIT/ML PEN 3ML INJECT 22 UNITS ACTIVE SUBCUTANEOUSLY TWICE DAILY FOR DIABETES MELATONIN 1MG CAP/TAB TAKE FOUR CAPSULE/TABLETS BY MOUTH ACTIVE AT BEDTIME NEEDED INSOMNIA MIRTAZAPINE 30MG TAB TAKE ONE TABLET BY MOUTH AT BEDTIME ACTIVE FOR DEPRESSION/MOOD NEEDLE,PEN 31G,5MM USE 1 NEEDLE SUBCUTANEOUSLY FOUR TIMES ACTIVE A DAY FOR USE WITH PEN DEVICE SEMAGLUTIDE 1MG/0.75ML INJ PEN 3ML INJECT 1MG ACTIVE SUBCUTANEOUSLY ONCE A WEEK FOR TYPE 2 DIABETES MELLITUS SERTRALINE HCL 100MG TAB TAKE ONE AND ONE-HALF TABLETS BY ACTIVE MOUTH AT BEDTIME -FOR PTSD, MOOD TOPIRAMATE 25MG TAB TAKE ONE TABLET BY MOUTH TWICE DAILY ACTIVE NEEDED FOR ANXIETY/HEADACHE (OFF LABEL FOR ANXIETY) Non-VA ASPIRIN 81MG EC TAB 81MG BY MOUTH EVERY DAY ACTIVE Non-VA CYANOCOBALAMIN TAB BY MOUTH ACTIVE Non-VA GABAPENTIN 300MG CAP 300MG BY MOUTH THREE TIMES A ACTIVE DAY Non-VA LOVASTATIN 40MG TAB 40MG BY MOUTH EVERY DAY ACTIVE Non-VA METFORMIN HCL 1000MG TAB 1000MG BY MOUTH TWICE ACTIVE DAILY Non-VA METOPROLOL TARTRATE 25MG TAB 25MG BY MOUTH EVERY ACTIVE DAY Non-VA VITAMIN B COMPLEX CAP,ORAL BY MOUTH ACTIVE Non-VA VITAMIN D3 (CHOLECALCIFEROL) TAB BY MOUTH ACTIVE MEDICATION RECONCILIATION: done BLOOD GLUCOSE MONITORING 11/15/22: 14 DAY AVERAGE = 246 48% >250 36% 181-250 16% 70-180 0% 54-69 14 DAY SENSOR USAGE SCANS PER DAY: 5 50% ACTIVE ------- 11/29/22: 14 DAY AVERAGE = 267 61% >250 28% 181-250 11% 70-180 0% 54-69 14 DAY SENSOR USAGE SCANS PER DAY: 10 92% ACTIVE == 12/27/22: 14 DAY AVERAGE = 211 33% >250 30% 181-250 37% 70-180 0% 54-69 Low glucose events; 1 avg duration: 60 minutes 14 DAY SENSOR USAGE: SCANS PER DAY: 7;92% ACTIVE 02/14/23 14 DAY AVERAGE = 177 20% >250 23% 181-250 55% 70-180 2% 54-69 Low glucose events; 1 avg duration: 60 minutes 14 DAY SENSOR USAGE: SCANS PER DAY: 7;92% ACTIVE 02/21/23 14 DAY AVERAGE = 175 15% >250 28% 181-250 56% 70-180 1% 54-69 Low glucose events; 1 avg duration: 60 minutes 14 DAY SENSOR USAGE: SCANS PER DAY: 5;82% ACTIVE 03/21/23 14 DAY AVERAGE = 217 mg/dl 21% >250 56% 181-250 23% 70-180 0% 54-69 Low glucose events; 0 05/16/23 14 DAY AVERAGE = 147 mg/dl 3% >250 21% 181-250 75% 70-180 1% 54-69 Low glucose events; 1; avg duration: 75 min 14 DAY SENSOR USAGE: SCANS PER DAY: 3; 61% ACTIVE 08/06/23 DEXCOM G7 14 DAY AVERAGE = 152 mg/dl 1% >VERY HIGH 31% HIGH 64% IN RANGE 1% LOW 3% VERY LOW SENSOR USAGE: 86%; 10/24/23 DEXCOM G7 14 DAY AVERAGE = 202 mg/dl 15% >VERY HIGH 50% HIGH 35% IN RANGE 0% LOW 3% VERY LOW SENSOR USAGE: 64%; 04/02/24 DEXCOM G7 14 DAY AVERAGE = 299 mg/dl 72% >VERY HIGH 25% HIGH 3% IN RANGE 0% LOW 0% VERY LOW SENSOR USAGE: 71%; 05/06/24 DEXCOM G7 7 DAY AVERAGE = 217 mg/dl 25% >VERY HIGH 47% HIGH 28% IN RANGE 0% LOW 0% VERY LOW SENSOR USAGE: 100%; Date: 07/30/24 Dexcom G7 14 day av mg/dl 25% VERY HIGH 47% HIGH 28% IN RANGE 0% LOW 0% VERY LOW Sensor usage: 100% A SEPERATE UPLOAD CAN BE FOUND IN CPRS UNDER A DIFFERENT NOTE NUTRITION Diet Patterns: patient eats on avg. 1-2x/day: B: skips L: 12 PM; peanut butter jelly sandwich or snack or poptart D: 6-9pm: meals on wheels Pt's meal pattern is very erratic. Snacks: anything he can get hands on , ice cream , Drinks: water ~ only few sips when he takes his medications , coke zero Exercise: pt walks with a cane ; pt has difficulty with his legs and movement HYPOGLYCEMIC Events: 0 in the last 2 weeks Hypoglycemia recognition & treatment reviewed: Yes EtOH/Illicit drugs: Alcohol: denies Tobacco: denies Other: - Denies personal or fhx thyroid cancer or MENS2 - Denies hx pancreatitis Personal Goals: - Get BG under control SSESSMENT/PLAN: Reviewed the BG presented by the on the dexcom sensor. BG dangerously high. Unsure what the cause? REviewed w/ pt where pt stores insulin as well as injection sites. At this time recommend to increase insulin glargine and 1 week later increase dose of ozempic. Pt in agreement. Pt received written instructions. REviewed nutrition as well. Pt to f/up in April - close monitoring recommended. Pt obtained labs outside - he is to bring them to the pact team to upload. REviewed potential ADR to higher dose of semaglutide. Date: 05/06/24 time in target went up from 3% to 40%. Pt started the 1 mg dose of ozempic this past friday. Recommend to increase insulin glargine silghtly and reduce dose of novolog. f/up in June Date: 07/30/24 Time in target very low at 28%. At this time recommend to 1. increase the dose of insulin glargine and 2. increase the dose of semaglutide. Reviewed nutrition. Unfortunately pt grazes througout the day. He is not consistent w/ scheduling his meals. Will closely f/up. DIABETES A1c is above goal of <7% - Medication management Diabetes -- c/t metformin 1000 mg bid - Increase Insulin glargine (Semglee) BID: 28 units in AM and 28 units in PM - Reduce Insulin aspart( Novolog) BID 10 UNITS BID (12 units for larger meals) - take 15 minutes prior to meals if meal is skipped, skip Novolog. --INCREASE semaglutide to 2 mg weekly (mondays) - [facility] - Monitor for s/six hypoglycemia and contact clinic if BG consistently <70mg/dL - Healthy dietary and lifestyle modifications encouraged - increase water intake to 40 oz/day - Repeat A1c:x 3 months HTN: recent BP wnl 12/2021 ; metoprolol; BRENNAN-I/ARB - defer to PCP ASCVD: fish oil; ASA 81 mg , lovastatin Microalb: mALB/Cr: 60.1 H mg/G (05/2021) History of Preventive Care: Most recent visit to cooker syrup: non [facility] ; last visit at wound care; both legs are infected. Pt fell last year in April, pt made a report out ever since the fall pt pt has had infection x 4-5 months Most recent visit to [facility] 07[facility] : 2. TYPE 2 DIABETES WITH RETINOPATHY BUT WITHOUT MACULAR EDEMA OU A1C: NOV 2021 8.0% Clinic's Next Scheduled Follow-up:F2F 09/08/24 No barriers; Patient understands and agrees to current treatment plan. If he has any questions, concerns, or changes in current health status he will call or come in to the [facility]. or changes in current health status he will call or come in to the [facility]. FUTURE APPOINTMENTS: 05/11/2024 13:00 CWM/SO/MHC/ROSIO 05/19/2024 13:30 CWM/SO/PHARM/PACT 2 05/28/2024 11:30 CWM/SO/MHC/WORKMAN 06/01/2024 14:00 CWM/SO/MHC/OFRAT 02/11/2025 11:30 NHM/OPTOMETRY/JODI DM type is :T2D Length of Visit: 30 minutes PBM PharmD Pharmacotherapy Rem V12: PHARMACIST INTERVENTIONS: TYPE 2 DIABETES MELLITUS Medication Intervention(s) Adjust dose or frequency of current medication due to other reason Plan: INCREASE DOSE OF SEMAGLUTIDE TO 2 MG Medication monitoring, no dosage change required, continue to monitor and assess /es/ LAMBERTO MIKE CLINICAL COTTRELL OPERATOR Signed: 08/02/2024 09:08 Receipt Acknowledged By: 08/04/2024 05:57 /caio/ MANUELITO MCFARLANE, KASSI NURSE PRACTITIONER for LAMBERTO SUAZO
--- OUTSIDE RECORDS SUMMARY | 2024-09-08 09:30 | XMS_ITS | Encounter Summary ---
Author Name [facility] [place] [facility] [place] Address [address] [place] [id number] Care Team Providers Care Director Of Food And Nutrition Services Name Role Phone CHRISTI ARIAS Primary Care [...] Name Patient's Relationship to Policy [facility] ([facility]) MEDICARE ADVANTAGE [facility] ([facility]) Nov 17, 2017 NONE [id number] [facility] ([facility]) MEDICARE ADVANTAGE [facility] ([facility]) Nov 17, 2017 [id number] DARRELL HUTCHINS PATIENT MEDICAID MEDICAID [facility] Jan 15, 2017 MEDICAI D [id number] DARRELL HUTCHINS PATIENT Selected Encounter This section includes the information on record at [place] for the Encounter. Date/Time Encounter Type Encounter Description Reason Provider Source Sep 08, 2024 01:30 PM OFFICE O/P EST MOD 30 MIN [facility] - IND ICD-10-CM F32.9 Major depressive disorder, single episode, unspecified EUGENE WORKMAN IH Encounter Template Text not used by [place] Assessments - Encounter Diagnoses This section includes the primary and secondary diagnoses documented for the Encounter. Date/Time Primary/Secondary Diagnosis Diagnosis Name Provider Source Sep 08, 2024 06:49 PM PRIMARY Major depressive disorder, single episode, unspecified DENISSE WORKMAN [facility] Plan of Treatment: Future Appointments (+ 6 months) and Future Tests (+/- 45 days) The Plan of Treatment section includes future care activities for the patient from all [place] [facility]. This section includes future appointments and future orders which are active, pending or scheduled. Future Appointments This section includes appointments that were scheduled to occur 6 months from the date of the Encounter, up to a maximum of 20 appointments. The data comes from all [place] treatment facilities. Appointment Date/Time Appointment Type Appointme nt Facility Name Sep 10, 2024 02:00 PM AMBULATORY - MEDICINE [facility] Sep 10, 2024 03:15 PM [place] [facility] [place] [facility] Sep 17, 2024 08:00 AM AM[place] [facility] [place] [facility] Oct 06, 2024 03:30 PM AMBULATORY - PSYCHIATRY [facility] Oct 28, 2024 03:00 PM AMBULATORY - MEDICINE [facility] Nov 02, 2024 12:00 PM AM[place]UL[place]ORY [place] [facility] [place] [facility] Nov 05, 2024 03:30 PM AM[place]UL[place] [place] [facility] [place] [facility] Nov 08, 2024 01:00 PM AMBULATORY [place]INE [place] [facility] [place] [facility] Nov 25, 2024 09:00 AM AMBULATORY - NONE [facility] [place] [facility] Nov 26, 2024 02:05 PM AMBULATORY [place]INE [place] [facility] [place] [facility] Nov 30, 2024 02:00 PM AMBULATORY - PSYCHIATRY [facility] Nov 30, 2024 03:00 PM AMBULATORY - PSYCHIATRY [facility] Dec 07, 2024 10:30 AM AMBULATORY [place] MEDICINE [place] [facility] [place] [facility] Dec 17, 2024 12:00 PM AMBULATORY - MEDICINE [place] [facility] [place] [facility] Dec 21, 2024 11:00 AM AM[facility]UL[facility]ORY [facility]INE [facility] [place] [facility] Dec 28, 2024 02:00 PM AMBULATORY - PSYCHIATRY [facility] Jan 06, 2025 01:00 PM AMBULATORY - PSYCHIATRY [facility] Jan 25, 2025 02:00 PM AMBULATORY - PSYCHIATRY [facility] Jan 25, 2025 03:00 PM AMBULATORY - PSYCHIATRY [facility] Feb 08, 2025 11:15 AM AMBULATORY - NONE [facility] Lab Results: +/- 30 days of the encounter This section includes the Chemistry and Hematology Lab Results on record with [place] for the patient. Radiology Reports and Pathology Reports are provided separately, in subsequent sections. Lab Results This section contains the Chemistry/Hematology Results that were resulted 30 days before or 30 daysafter the date of the Encounter. Date/Time Source Result Type Result - Unit Interpretation Reference Range Specimen Type Comment Sep 08, 2024 02:48 PM [facility] GLUCOSE, Fingerstick BLOOD Specimen Type: BLOOD Comment: For GLU FinTest performed by: Stacy Lr For GLU Fin Meter #: [id number] Ordering Provider: CHRISTI PEDRO Report Released Date/Time: Sep 08, 2024 03:54 PM Reporting Lab: [address] [address] Performing Lab: [facility] [address] [facility] [address] GLUCOSE, Fingerstick 299 mg/dL H 65-100 Aug 20, 2024 01:47 PM [facility] HEMOGLOBIN A1C PANEL BLOOD Specimen Type: BLO OD Comment: Values obtained from A1C measurements can vary. For atypical A1C assays, a reported value of 7.0 could actually be between 6.72 and 7.28 if measured by a reference method. A reported value of 9.0 could actually be between 8.73 and 9.27. Ref: http://www.ngsp.org/CAPdata.asp Ordering Provider: CHRISTI ARIAS Report Released Date/Time: Jun 20, 2024 08:45 PM Reporting Lab: [address] [address] [facility]forming [facility] [address] [facility] [address] HEMOGLOBIN A1C 7.4 H 4.0-5.6 Social History: Smoking Status (Most current) and Tobacco Use (All prior to encounter date) This section includes the most current, and the historical, smoking and tobacco- related health factors from the [place] facility where the Encounter took place. Current Smoking Status This section includes the most current smoking, or tobacco-related health factor, from the [place] facility where the Encounter took place. Date/Time Current Smoking Status Comment Kiki ity Aug 24, 2021 11:30 AM VA-TOBACCO USER EVERY DAY [facility] Tobacco Use History This section includes a history of the smoking, or tobacco-related health factors, that were collected on or before the date of the Encounter. The data comes from the [place] facility where the Encounter took place. Date/Time Smoking Status/Tobacco Use Comment F acility Aug 24, 2021 11:30 AM VA-TOBACCO USE ADVICE [facility] Aug 24, 2021 11:30 AM VA-TOBACCO USE MANAGER ORANGE NO [facility] Aug 24, 2021 11:30 AM VA-TOBACCO USE MED NO [facility] Aug 24, 2021 11:30 AM VA-TOBACCO USE WI 30 MIN OF WAKEUP [facility] Aug 24, 2021 11:30 AM VA-TOBACCO USER EVERY DAY [facility] May 11, 2020 09:35 AM VA-TOBACCO DOESNT USE WI 30 MIN WAKEUP [facility] May 11, 2020 09:35 AM VA-TOBACCO USE 30 YEARS OR MORE [facility] May 11, 2020 09:35 AM VA-TOBACCO USE ADVICE [facility] May 11, 2020 09:35 AM VA-TOBACCO USE MANAGER ORANGE NO [facility] May 11, 2020 09:35 AM VA-TOBACCO USE MED [facility] May 11, 2020 09:35 AM VA-TOBACCO USER EVERY DAY [facility] Jan 28, 2019 10:44 AM VA-TOBACCO DOESNT USE WI 30 MIN WAKEUP [facility] Jan 28, 2019 10:44 AM VA-TOBACCO USE 5 TO 15 YEARS [facility] Jan 28, 2019 10:44 AM VA-TOBACCO USE ADVICE [facility] Jan 28, 2019 10:44 AM VA-TOBACCO USE MANAGER ORANGE NO [facility] Jan 28, 2019 10:44 AM VA-TOBACCO USE MED [facility] Jan 28, 2019 10:44 AM VA-TOBACCO USER EVERY DAY [facility] Nov 06, 2017 09:56 AM CURRENT SMOKER YADIRA ROBERSON Nov 06, 2017 09:56 AM V1-PT NOT INTEREST ED IN QUIT TOBACCO USE [facility] Sep 15, 2017 02:08 PM CURRENT SMOKER reports smoking about 1/2 pack small cigars/day [facility] Encounter Notes: All associated encounter notes This section contains the clinical notes associated to the Encounter. Date/Time Encounter Note(s) Provider Source Sep 08, 2024 01:34 PM PSYCHIATRY NOTE: LOCAL TITLE: PSYCHIATRY NOTE STANDARD TITLE: PSYCHIATRY NOTE DATE OF NOTE: SEP 08, 2024@13:34 ENTRY DATE: SEP 08, 2024@13:35:03 AUTHOR: DENISSE WORKMAN EXP COSIGNER: URGENCY: STATUS: COMPLETED PSYCHIATRY NOTE Has ADDENDA 30 min for encounter, including chart review, interview, charting chart reviewed Patient relatively stable, but has stress of ongoing medical problems/sx's, will see primary care. Despite the stress, patient reports improvement since starting the Cymbalta trial. Depression is better, patient feels he would have more difficulty without the current medication in terms of coping with stressors. But PTSD symptoms fluctuate, also depending upon stress. Affect brightens appropriately. The patient denies SI and violent ideation. Thoughts are well organized. No paranoid or delusional content presented. Denies hallucinations. Speech normal. Cognitive exam grossly unchanged. Insomnia improved. Again, has interests, for example reading, he becomes animated as he discusses his reading. As with each interview, the patient clearly enjoys talking, telling stories. He again has sense of humor. He again likes to talk about current events. The patient has undergone switch from Zoloft to Cymbalta and appears to be benefiting. See below for medications, now off the Zoloft for over 1 mo Denies psych med side effects. Denies daytime sedation. Reports med compliance h/o heavy alcohol -- stopped about 5 yrs ago, except previously reported 2 or less drinks per month on ave; denies recent cannabis; denies street drugs Pt ; Pt is close to his son, who lives w him. 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 Cellulitis and abscess of lower leg 2. Heart murmur 3. Cardiac arrhythmia 4. Actinic keratosis 5. Headache 6. Insomnia 7. Unsteady gait 8. Vitamin D Deficiency ([facility] [id number]) 9. Vitamin B12 Deficiency ([facility] [id number]) 10. Diarrhea 11. CAD - Coronary Artery Disease ([facility] [id number]) 12. Pain of left knee joint 13. Tobacco user 14. Peripheral venous insufficiency 15. Onychomycosis 16. History of cholecystectomy 17. Chronic back pain 18. Neck pain 19. Co-Management 20. Depression ([facility] [id number]) 21. Hyperglycemia due to type 2 diabetes [...] CAP TAKE ONE CAPSULE BY MOUTH ACTIVE ONCE DAILY DEPRESSION 4) GLUCOSE 4GM CHEW TAB CHEW THREE TO FOUR TABLETS BY ACTIVE MOUTH NEEDED TO TREAT LOW BLOOD SUGAR BELOW 70 5) GLUCOSE SENSOR DEXCOM G7 USE 1 SENSOR DIRECTED ACTIVE EVERY 10 DAYS 6) INSULIN,ASPART(EQV-NOVLG)100UN/ML FLXPEN INJECT 14 ACTIVE UNITS SUBCUTANEOUSLY TWICE DAILY 15 MINUTES BEFORE MEALS 7) INSULIN,GLARGINE-YFGN 100UNIT/ML PEN 3ML INJECT 22 ACTIVE UNITS SUBCUTANEOUSLY TWICE DAILY FOR DIABETES 8) MAGNESIUM OXIDE 420MG TAB TAKE ONE TABLET BY MOUTH ACTIVE ONCE DAILY FOR MAGNESIUM SUPPLEMENTATION 9) MELATONIN 1MG CAP/TAB TAKE SIX CAPSULE/TABLET BY ACTIVE MOUTH AT BEDTIME NEEDED INSOMNIA 10) MIRTAZAPINE 30MG TAB TAKE ONE TABLET BY MOUTH AT ACTIVE BEDTIME FOR DEPRESSION/MOOD 11) MUPIROCIN 2% OINT APPLY THIN LAYER TOPICALLY EVERY ACTIVE OTHER DAYS 12) NEEDLE,PEN 31G,5MM USE 1 NEEDLE SUBCUTANEOUSLY FOUR ACTIVE TIMES A DAY FOR USE WITH PEN DEVICE 13) SEMAGLUTIDE 2MG/0.75ML INJ PEN 3ML INJECT 2MG ACTIVE SUBCUTANEOUSLY ONCE A WEEK 14) TOPIRAMATE 25MG TAB TAKE ONE TABLET BY [...] VITAMIN D3 (CHOLECALCIFEROL) TAB BY MOUTH ACTIVE 22 Total Medications PSYCHIATRIC MEDICATION HISTORY: amitryptiline -- low dose for pain trazodone -- not help sleep zoloft topamax for NAIK gabapentin for pain zaleplon -- stopped , ? some benefit pt stopped sonata IMPRESSION: DSM-5 Unspecified depressive do --improved PTSD -- from childhood and possibly Alcohol use do -- yrs ago -- reports very limited for the past 5 yrs HAs -- sees neuro PLAN: Performed careful risk assessment. See C-SSRS 05/28/24 - same today. The patient denies suicidal and violent ideation (but has past history of intermittent suicidal ideation, without plan or intent) The pt is probably low risk for suicide or violence, but the [place] Crisis Line information and number were reviewed w patient as a precaution. The patient also understands to call 911 or to go to ER in the event of an emergency. Pt has safety plan, as a precaution, patient has copy and reviewed with patient again today. Patient also wears a wristband with the crisis number. The patient also understands to call 911 or to go to ER in the event of an emergency. Also note that the patient is active with some of the internal coping strategies on safety plan as part of his usual routine. Also, see Dr. Perla 05/04 and susequent notes. Also I agree with 's discussion 05/04 [...] addenda to the same note. Primary care had recommended considering discontinuing Zoloft and mirtazapine due to the patient's prolonged QTC. I again discussed with the patient about this issue. Over time we have change Zoloft to Cymbalta, and we are in the midst of doing this. We also discussed considering tapering Remeron, depending upon how patient does with Cymbalta trial. But no change in Remeron today. Also see below for more discussion. The patient completed the Zoloft taper, now off Zoloft, as noted last appt CONTINUE CYMBALTA 60 MG DAILY for depression, patient has improved in terms of depression, but give more tiome for further response CONTINUE REMERON 30 MG QHS to augment Cymbalta for mood/anxiety/ptsd and may help sleep ; I reviewed risk of next day sedation , falling, wt gain w pt --patient denies side effects, patient feels benefits outweigh risks -- pt tolerates well. But we may consider tapering this off, but no change today CONTINUE TOPAMAX 25 MG BID for anxiety [...] with psychiatric medication. Return to clinic about 1 mo or sooner through open access if [...] risks at this point. Reviewed with my colleagues Dr. Lopez and Dr Camacho about this and agrees with the above. But as noted in previous notes, out of abundance of caution, we have [...] this [facility] ([facility] and dispensed from another [facility] or [facility] facility (remote) as well as inpatient orders [...] /caio/ DENISSE WORKMAN MD STAFF PSYCHIATRIST Signed: 09/08/2024 18:49 10/01/2024 ADDENDUM STATUS: COMPLETED I had called patient to review his progress with medication and left VM, and he left a voicemail for me stating that he is doing okay with current medication. I called back and reached patient's voicemail again, and left VM reminding pt about the appointments with Dr. Perla and me next week on 10/06 /caio/ DENISSE WORKMAN MD STAFF PSYCHIATRIST Signed: 10/01/2024 18:40 10/01/2024 ADDENDUM STATUS: UNSIGNED You may not VIEW this UNSIGNED Addendum. DENISSE WORKMAN
--- OUTSIDE RECORDS SUMMARY | 2024-09-08 10:30 | XMS_ITS | Encounter Summary ---
Author Name [facility] [place] Organization [facility] [place] [facility] [place] Address [address] [place] [id number] Care Team Providers Care Trace Evidence Technician Name Role Phone CHRISTI ARIAS Primary Care [...] Name Patient's Relationship to Policy [facility] ([facility]) MEDICARE ADVANTAGE [facility] ([facility]) Nov 17, 2017 NONE [id number] DARRELL HUTCHINS PATIENT [facility] (R) MEDICARE ADVANTAGE [facility] ([facility]) Nov 17, 2017 [id number] DARRELL HUTCHINS PATIENT MEDICAID MEDICAID [facility] Jan 15, 2017 MEDICAI D [id number] DARRELL HUTCHINS PATIENT Selected Encounter This section includes the information on record at [place] for the Encounter. Date/Time Encounter Type Encounter Description Reason Provider Source Sep 08, 2024 02:30 PM MTMS BY PHARM ADDL 15 MIN CLINICAL PHARMACY ICD-10-CM E11.65 Type 2 diabetes mellitus with hyperglycemia DARIO MIKE [facility] Encounter Template Text not used by PA Assessments - Encounter Diagnoses This section includes the primary and secondary diagnoses documented for the Encounter. Date/Time Primary/Secondary Diagnosis Diagnosis Name Provider Source Sep 13, 2024 02:08 PM PRIMARY Type 2 diabetes mellitus with hyperglycemia JACQUELINE MIKE [facility] Plan of Treatment: Future Appointments (+ 6 months) and Future Tests (+/- 45 days) The Plan of Treatment section includes future care activities for the patient from all [place] [facility] [place]. This section includes future appointments and future orders which are active, pending or scheduled. Future Appointments This section includes appointments that were scheduled to occur 6 months from the date of the Encounter, up to a maximum of 20 appointments. The data comes from all [place] treatment facilities. Appointment Date/Time Appointment Type Appointme nt Facility Name Sep 10, 2024 02:00 PM AMBULATORY - MEDICINE [facility] Sep 10, 2024 03:15 PM [facility] Sep 17, 2024 08:00 AM [facility]ULATORY [facility] Oct 06, 2024 03:30 PM AMBULATORY - PSYCHIATRY [facility] Oct 28, 2024 03:00 PM AMBULATORY - MEDICINE [facility] Nov 02, 2024 12:00 PM [facility]UL[facility] Nov 05, 2024 03:30 PM [facility]UL[facility]ORY [facility] Nov 08, 2024 01:00 PM [facility]ULAT[facility] Nov 25, 2024 09:00 AM AMBULATORY - NONE [facility] Nov 26, 2024 02:05 PM AMBULATORY - [facility] Nov 30, 2024 02:00 PM AMBULATORY - PSYCHIATRY [facility] Nov 30, 2024 03:00 PM AMBULATORY - PS[facility]CHIATRY [facility] Dec 07, 2024 10:30 AM AM[facility]ULATORY [facility] Dec 17, 2024 12:00 PM AMBULATORY - [facility] [place] Dec 21, 2024 11:00 AM AMBULATORY - [facility]IC[facility] Dec 28, 2024 02:00 PM AMBULATORY - PSYCHIATRY [facility] Jan 06, 2025 01:00 PM AMBULATORY - PSYCHIATRY [facility] Jan 25, 2025 02:00 PM AMBULATORY - PSYCHIATRY [facility] Jan 25, 2025 03:00 PM AMBULATORY - PSYCHIATRY [facility] Feb 08, 2025 11:15 AM AMBULATORY - NONE [facility] Lab Results: +/- 30 days of the encounter This section includes the Chemistry and Hematology Lab Results on record with PA for the patient. Radiology Reports and Pathology Reports are provided separately, in subsequent sections. Lab Results This section contains the Chemistry/Hematology Results that were resulted 30 days before or 30 daysafter the date of the Encounter. Date/Time Source Result Type Result - Unit Interpretation Reference Range Specimen Type Comment Sep 08, 2024 02:48 PM [facility] GLUCOSE, Fingerstick BLOOD Specimen Type: BLOOD Comment: For GLU FinTest performed by: Stacy Lr For GLU Fin Meter #: [id number] Ordering Provider: CHRISTI PEDRO Report Released Date/Time: Sep 08, 2024 03:54 PM Reporting Lab: [address] [address] Performing Lab: [facility] [address] [facility] [address] GLUCOSE, Fingerstick 299 mg/dL H 65-100 Aug 20, 2024 01:47 PM [facility] HEMOGLOBIN A1C PANEL BLOOD Specimen Type: [...] Jun 20, 2024 08:45 PM Reporting Lab: [address] [address] Performing Lab: [facility] [address] [address] HEMOGLOBIN A1C 7.4 H 4.0-5.6 Social History: Smoking Status (Most current) and Tobacco Use (All prior to encounter date) This section includes the most current, and the historical, smoking and tobacco- related health factors from the [place] facility where the Encounter took place. Current Smoking Status This section includes the most current smoking, or tobacco-related health factor, from the [place] facility where the Encounter took place. Date/Time Current Smoking Status Comment Facil ity Aug 24, 2021 11:30 AM VA-TOBACCO USER EVERY DAY [facility] Tobacco Use History This section includes a history of the smoking, or tobacco-related health factors, that were collected on or before the date of the Encounter. The data comes from the [place] facility where the Encounter took place. Date/Time Smoking Status/Tobacco Use Comment F acility Aug 24, 2021 11:30 AM VA-TOBACCO USE ADVICE [facility] Aug 24, 2021 11:30 AM VA-TOBACCO USE BUILDING TECH [facility] Aug 24, 2021 11:30 AM VA-TOBACCO USE MED [facility] Aug 24, 2021 11:30 AM VA-TOBACCO USE [place] 30 MIN OF WAKEUP [facility] Aug 24, 2021 11:30 AM VA-TOBACCO USER EVERY DAY [facility] May 11, 2020 09:35 AM VA-TOBACCO DOESNT USE WI 30 MIN WAKEUP [facility] May 11, 2020 09:35 AM VA-TOBACCO USE 30 YEARS OR MORE [facility] May 11, 2020 09:35 AM VA-TOBACCO USE ADVICE [facility] May 11, 2020 09:35 AM VA-TOBACCO USE BUILDING TECH NO [facility] May 11, 2020 09:35 AM VA-TOBACCO USE MED [facility] May 11, 2020 09:35 AM VA-TOBACCO USER EVERY DAY [facility] Jan 28, 2019 10:44 AM VA-TOBACCO DOESNT USE WI 30 MIN WAKEUP [facility] Jan 28, 2019 10:44 AM VA-TOBACCO USE 5 TO 15 YEARS [facility] Jan 28, 2019 10:44 AM VA-TOBACCO USE ADVICE [facility] Jan 28, 2019 10:44 AM VA-TOBACCO USE BUILDING TECH NO [facility] Jan 28, 2019 10:44 AM VA-TOBACCO USE MED [facility] Jan 28, 2019 10:44 AM VA-TOBACCO USER EVERY DAY [facility] Nov 06, 2017 09:56 AM CURRENT SMOKER [facility] Nov 06, 2017 09:56 AM V1-PT NOT INTEREST ED IN QUIT TOBACCO USE [facility] Sep 15, 2017 02:08 PM CURRENT SMOKER reports smoking about 1/2 pack small cigars/day [facility] Encounter Notes: All associated encounter notes This section contains the clinical notes associated to the Encounter. Date/Time Encounter Note(s) Provider Source Sep 08, 2024 02:35 PM PHARMACY OUTPATIEN T NOTE: LOCAL TITLE: PHARMACY CLINIC NOTE STANDARD TITLE: PHARMACY OUTPATIENT NOTE DATE OF NOTE: SEP 08, 2024@14:35 ENTRY DATE: SEP 08, 2024@14:35:26 AUTHOR: LAMBERTO MIKE COSIGNER: URGENCY: STATUS: COMPLETED PHARMACY CLINIC NOTE Has ADDENDA Patient Name: LISSETTE HUTCHINS was seen via f for follow-up for diabetes management treatment. : Dec Age: 74 Sex: MALE Race: WHITE Subjective: Pt came to the visit stating he feels sick. Pt is concerned about his recent cardiac tests and wants to know its results. Pt jumps from one topic to another difficult to follow. Pt also complains about his living situation - he lives w/ his son who per pt is very difficult to him. Per prev: Pt presents for a follow [...] is not happy w/ his job at [email or web address]. Pt expresses desire to leave [place] he does not like living here anymore. Pt also adds BG have been very high it's very frustrating to him. He continues to use dexcom sensor. Pt has busy month upcoming in April with doctors appt - GI ; heart , etc. Per prev: Pt went to [facility] where infection was found in his legs. He has f/up with them after xmass. Currently taking ABX for the infection. 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 He has severe Crohn's disease. [...] he was seeing wound care weekly at [facility] and was dicharged spring 2022- per pt he was told they can not help him anymore. per pt he was supposed to see vascualar surgery at [facility] for evaluation of LE edema, but he [...] 7. Unsteady gait 8. Vitamin D Deficiency ([facility] [id number]) 9. Vitamin B12 Deficiency ([facility] [id number]) 10. Diarrhea 11. CAD - Coronary Artery Disease ([facility] [id number]) 12. Pain of left knee joint 13. Tobacco user 14. Peripheral venous insufficiency 15. Onychomycosis 16. History of cholecystectomy 17. Chronic back pain 18. Neck pain 19. Co-Management 20. Depression ([facility] [id number]) 21. Hyperglycemia due to type 2 diabetes mellitus 22. Hyperlipidemia 23. Essential hypertension 24. Neuropathy due to type 2 diabetes mellitus 25. Posttraumatic stress disorder Objective: Diabetes Medication Regimen: - Insulin glargine (Semglee) 28 units twice daily - typically 12 noon and 12 midnight - Insulin aspart( Novolog) BID-TID for small meals take 12 units; for large meals + snacks 12 units - take 15 minutes prior to meals if meal is skipped, skip Novolog. - semaglutide 2 mg weekly (Sundays) - metformin 1000 mg bid - pt started ozempic on 02/21/23 ; recently restarted early October, - started this past friday on incresaed dose of 1 mg weekly 05/02/24 Previous DM Medications: -- glimepiride -- Novolog Adherence: Oral meds: denies missed doses Insulin: denies missed doses Labs: HEMOGLOBIN A1C TREND Collection DT Spec HGBA1c 08/20/2024 13:47 BLOOD 7.4 H 05/04/2024 14:38 BLOOD 8.7 H 08/06/2023 14:47 BLOOD 6.4 H 07/08/2023 09:41 BLOOD 6.2 H 12/31/2022 13:45 BLOOD 8.7 H CBC TREND Collection DT Spec WBC [...] - 50 SrCr (last 6 weeks): CREATININE-EGFR - NONE FOUND CRCL IBW: CrCl(est): 109.3 mL/min (Creat:0.80 05/04/24) CRCL ACT: No Creat CRCL ADJ: 109.3 mL/min (05/04/24) Vitals: Weight (BMI): 257.8 lb [116.94 kg] (05/06/2024 10:21) Height: 74 in [188.0 cm] (02/18/2019 10:31) BMI: 33.2 Active and Recently Outpatient Medications (including Supplies): Active Outpatient Medications Status Active Outpatient Medications (including Supplies): ALCOHOL PREP PAD USE 1 PAD TOPICALLY THREE TIMES A DAY TO ACTIVE CLEAN SKIN FOR INJECTION ETC AMMONIUM LACTATE 12% LOTION APPLY SMALL AMOUNT TOPICALLY ACTIVE ONCE DAILY FOR DRY SKIN FOR DRY IRRITATED SKIN DULOXETINE HCL 60MG EC CAP TAKE ONE CAPSULE BY MOUTH ONCE ACTIVE DAILY DEPRESSION GLUCOSE 4GM CHEW TAB CHEW THREE TO FOUR TABLETS BY MOUTH ACTIVE NEEDED TO TREAT LOW BLOOD SUGAR BELOW 70 GLUCOSE SENSOR DEXCOM G7 USE 1 SENSOR DIRECTED EVERY 10 ACTIVE DAYS INSULIN,ASPART(EQV-NOVLG)100UN/ML FLXPEN INJECT 14 UNITS ACTIVE SUBCUTANEOUSLY TWICE DAILY 15 MINUTES BEFORE MEALS INSULIN,GLARGINE-YFGN 100UNIT/ML PEN 3ML INJECT 22 UNITS ACTIVE SUBCUTANEOUSLY TWICE DAILY FOR DIABETES MAGNESIUM OXIDE 420MG TAB TAKE ONE TABLET BY MOUTH ONCE ACTIVE DAILY FOR MAGNESIUM SUPPLEMENTATION MELATONIN 1MG CAP/TAB TAKE SIX CAPSULE/TABLET BY MOUTH AT ACTIVE BEDTIME NEEDED INSOMNIA MIRTAZAPINE 30MG TAB TAKE ONE TABLET BY MOUTH AT BEDTIME ACTIVE FOR DEPRESSION/MOOD MUPIROCIN 2% OINT APPLY THIN LAYER TOPICALLY EVERY OTHER ACTIVE DAYS NEEDLE,PEN 31G,5MM USE 1 NEEDLE SUBCUTANEOUSLY FOUR TIMES ACTIVE A DAY FOR USE WITH PEN DEVICE SEMAGLUTIDE 2MG/0.75ML INJ PEN 3ML INJECT 2MG ACTIVE SUBCUTANEOUSLY ONCE A WEEK TOPIRAMATE 25MG TAB TAKE ONE TABLET BY [...] (CHOLECALCIFEROL) TAB BY MOUTH ACTIVE MEDICATION RECONCILIATION: BLOOD GLUCOSE MONITORING 11/15/22: 14 DAY AVERAGE [...] USAGE: SCANS PER DAY: 5;82% ACTIVE 03/21/23 DAY AVERAGE = 217 mg/dl 21% >250 56% 181-250 23% 70-180 0% 54-69 Low glucose events; 0 05/16/23 DAY AVERAGE = 147 mg/dl 3% >250 [...] LOW 0% VERY LOW SENSOR USAGE: 71%; 6/20/24 DEXCOM G7 7 DAY AVERAGE = 217 mg/dl 25% >VERY HIGH 47% HIGH 28% IN RANGE 0% LOW 0% VERY LOW SENSOR USAGE: 100%; Date: 07/30/24 Dexcom G7 14 day av mg/dl 25% VERY HIGH 47% HIGH 28% IN RANGE 0% LOW 0% VERY LOW Sensor usage: 100% Date: 09/08/24 B mg/dl - fasting BG checked at the visit A SEPERATE UPLOAD CAN BE FOUND IN [...] w/ scheduling his meals. Will closely f/up. Date: 09/08/24 pt has a lot of complaints; WIRE COINER checked his BG at the visit which was very high at 299 mg/dl. Pt did not bring the dexcom reader - unable to upload the BG data. At this time PCP recommended to reduce the dose of semaglutide to rule out it's ADR from increased dose as of recent months. Pt also has a lot of questions about the recent cardiac tests - pcp to review that w/ pt. No other changes. Pt will be f/up over telephone in 2-3 weeks. DIABETES A1c is above goal of <7% - Medication management Diabetes -- c/t metformin 1000 mg bid - C/T Insulin glargine (Semglee) BID: 28 units in AM and 28 units in PM - C/T Insulin aspart( Novolog) BID 10 UNITS BID (12 units for larger meals) - take 15 minutes prior to meals if meal is skipped, skip Novolog. --DECREASE semaglutide to 0.5 mg weekly (mondays) - Reviewed PA lab results - Monitor for s/six hypoglycemia [...] of Preventive Care: Most recent [facility] ; last visit at wound [...] A1C: NOV 2021 8.0% Clinic's Next Scheduled Follow-up: 09/28/24 ; TELE No barriers; Patient understands and agrees to current treatment plan. If he has any questions, concerns, or changes in current health status he will call or come [facility] to the [facility]. or changes in current health status he will call or come in to the [facility]. FUTURE APPOINTMENTS: 09/10/2024 15:15 [facility]-ORTHO GEN 09/14/2024 13:00 CWM/SO/MHC/ROSIO 09/14/2024 14:00 CWM/SO/MHC/OFRAT 10/06/2024 15:30 CWM/SO/MHC/WORKMAN 11/16/2024 13:00 CWM/SO/PACT 5 12/14/2024 11:25 [facility] C[facility]-CARDIOLOGY 12/21/2024 11:00 CWM/NO/DERMATOLOGY SENIOR MATERIALS SCIENTIST AM 02/11/2025 11:30 NHM/OPTOMETRY/JODI DM type is : T2D Length of Visit: 30 minutes PBM PharmD Pharmacotherapy Rem V12: PHARMACIST INTERVENTIONS: TYPE 2 DIABETES MELLITUS Medication Intervention(s) Adjust dose or frequency of current medication due to other reason Plan: REDUCE DOSE OF OZEMPIC D/T GI ADR S Medication monitoring, no dosage change required, continue to monitor and assess /caio/ LAMBERTO MIKE CLINICAL MARKETING PROFESSOR Signed: 09/13/2024 14:15 Receipt Acknowledged By: 09/13/2024 22:28 /caio/ CHRISTI ARIAS MD PHYSICIAN 11/08/2024 ADDENDUM STATUS: COMPLETED PT was contacted he was driving at the time of call to [facility]. PT will call the video games storywriter back. /caio/ LAMBERTO MIKE CLINICAL MARKETING PROFESSOR Signed: 11/08/2024 12:49 LAMBERTO MIKEFIELD
--- OUTSIDE RECORDS SUMMARY | 2024-09-10 10:00 | XMS_ITS | Encounter Summary ---
Author Name [facility] [place] Organization [facility] [place] Address [address] [place] [id number] Care Team Providers Care Client Service Consultant Name Role Phone CHRISTI ARIAS Primary Care [...] Name Patient's Relationship to Policy [facility] ([facility]) MEDICARE ADVANTAGE [facility] ([facility]) Nov 17, 2017 NONE [id number] DARRELL HUTCHINS PATIENT [facility] ([facility]) MEDICARE ADVANTAGE [facility] ([facility]) Nov 17, 2017 [id number] DARRELL HUTCHINS PATIENT MEDICAID MEDICAID [facility] Jan 15, 2017 MEDICAI D [id number] DARRELL HUTCHINS PATIENT Selected Encounter This section includes the information on record at [place] for the Encounter. Date/Time Encounter Type Encounter Description Reason Provider Source Sep 10, 2024 02:00 PM OFFICE O/P EST HI 40 MIN PRIMARY CARE/MEDICINE ICD-10-CM I10 Essential (primary) hypertension CHRISTI HERNADEZ Johanna Encounter Template Text not used by [facility] Assessments - Encounter Diagnoses This section includes the primary and secondary diagnoses documented for the Encounter. Date/Time Primary/Secondary Diagnosis Diagnosis Name Provider Source Sep 11, 2024 09:23 PM PRIMARY Essential (primary) hypertension CHRISTI MAGUIRE [facility] Sep 11, 2024 09:23 PM SECONDARY Actinic keratosis CHRISTI MAGUIRE [facility] Sep 11, 2024 09:23 PM SECONDARY Athscl heart disease of [place] coronary artery w/o ang pctrs CHRISTI MAGUIRE [facility] Sep 11, 2024 09:23 PM SECONDARY Cardiac arrhythmia, unspecified CHRISTI MAGUIRE [facility] Sep 11, 2024 09:23 PM SECONDARY Deficiency of other specified B group vitamins CHRISTI MAGUIRE [facility] Sep 11, 2024 09:23 PM SECONDARY Diarrhea, unspecified STEVE-CHRISTI JORDAN [facility] Sep 11, 2024 09:23 PM SECONDARY Hyperlipidemia, unspecified ZIYAD CANELALEN [facility] Sep 11, 2024 09:23 PM SECONDARY Low back pain, unspecified STEVE-CHRISTI JORDAN [facility] Sep 11, 2024 09:23 PM SECONDARY Major depressive disorder, single episode, unspecified CHRISTI MAGUIRE [facility] Sep 11, 2024 09:23 PM SECONDARY Other abnormalities of gait and mobility CHRISTI MAGUIRE [facility] Sep 11, 2024 09:23 PM SECONDARY Pain in left knee CHRISTI MAGUIRE [facility] Sep 11, 2024 09:23 PM SECONDARY Tobacco use CHRISTI MAGUIRE [facility] Sep 11, 2024 09:23 PM SECONDARY Type 2 diabetes mellitus with hyperglycemia CHRISTI MAGUIRE [facility] Sep 11, 2024 09:23 PM SECONDARY Venous insufficiency (chronic) (peripheral) NADCHIRSTI HILL DRIVER Sep 11, 2024 09:23 PM SECONDARY Vitamin D deficiency, unspecified CHRISTI MAGUIRE DRIVER Plan of Treatment: Future Appointments (+ 6 months) and Future Tests (+/- 45 days) The Plan of Treatment section includes future care activities for the patient from all [place] [facility]. This section includes future appointments and future orders which are active, pending or scheduled. Future Appointments This section includes appointments that were scheduled to occur 6 months from the date of the Encounter, up to a maximum of 20 appointments. The data comes from all [place] [facility]. Appointment Date/Time Appointment Type Appointme nt Facility Name Sep 17, 2024 08:00 AM AMBULATORY - MEDICINE [facility] Oct 06, 2024 03:30 PM AMBULATORY - PSYCHIATRY [facility] Oct 28, 2024 03:00 PM AMBULATORY - MEDICINE [facility] Nov 02, 2024 12:00 PM AMBULATORY - MEDICINE [facility] [place] Nov 05, 2024 03:30 PM AMBULATORY - MEDICINE [facility] [place] Nov 08, 2024 01:00 PM AMBULATORY - MEDICINE [facility] [place] Nov 25, 2024 09:00 AM AMBULATORY - NONE [facility] [place] [facility] Nov 26, 2024 02:05 PM AMBULATORY - MEDICINE [facility] [place] Nov 30, 2024 02:00 PM AMBULATORY - PSYCHIATRY [facility] Nov 30, 2024 03:00 PM AMBULATORY - PSYCHIATRY [facility] Dec 07, 2024 10:30 AM AMBULATORY - MEDICINE [facility] [place] Dec 17, 2024 12:00 PM AMBULATORY - MEDICINE [facility] [place] Dec 21, 2024 11:00 AM AMBULATORY - MEDICINE [facility] [place] Dec 28, 2024 02:00 PM AMBULATORY - PSYCHIATRY [facility] Jan 06, 2025 01:00 PM AMBULATORY - PSYCHIATRY [facility] Jan 25, 2025 02:00 PM AMBULATORY - PSYCHIATRY [facility] Jan 25, 2025 03:00 PM AMBULATORY - PSYCHIATRY [facility] Feb 08, 2025 11:15 AM AMBULATORY - NONE [facility] Feb 08, 2025 11:30 AM AMBULATORY - MEDICINE [facility] Feb 10, 2025 01:00 PM AMBULATORY - PSYCHIATRY [facility] Lab Results: +/- 30 days of the encounter This section includes the Chemistry and Hematology Lab Results on record with VA for the patient. Radiology Reports and Pathology Reports are provided separately, in subsequent sections. Lab Results This section contains the Chemistry/Hematology Results that were resulted 30 days before or 30 daysafter the date of the Encounter. Date/Time Source Result Type Result - Unit Interpretation Reference Range Specimen Type Comment Sep 08, 2024 02:48 PM [facility] GLUCOSE, Fingerstick BLOOD Specimen Type: BLOOD Comment: For GLU FinTest performed by: Stacy Lr For GLU Fin Meter #: [id number] Ordering Provider: CHRISTI PEDRO Report Released Date/Time: Sep 08, 2024 03:54 PM Reporting Lab: [address] [address] Performing Lab: [facility] [address] [facility] [id number] GLUCOSE, Fingerstick 299 mg/dL H 65-100 Aug 20, 2024 01:47 PM [facility] HEMOGLOBIN A1C PANEL BLOOD Specimen Type: [...] Jun 20, 2024 08:45 PM Reporting Lab: [address] [address] Performing Lab: [address] [address] HEMOGLOBIN A1C 7.4 H 4.0-5.6 Vital Signs: All taken on the encounter date This section contains inpatient and outpatient Vital Signs collected on the date of the Encounter. Date/Time Temperature Pulse Blood Pressure Respiratory Rate SP02 Pain Height Weight Body Mass Index Source Sep 10, 2024 02:17 PM 97 86 116/72 96 248.2 [address] [place] Social History: Smoking Status (Most current) and Tobacco Use (All prior to encounter date) This section includes the most current, and the historical, smoking and tobacco- related health factors from the [place] facility where the Encounter took place. Current Smoking Status This section includes the most current smoking, or tobacco-related health factor, from the [place] facility where the Encounter took place. Date/Time Current Smoking Status Comment Facil ity Aug 24, 2021 11:30 AM VA-TOBACCO USER EVERY DAY DRIVER Tobacco Use History This section includes a history of the smoking, or tobacco-related health factors, that were collected on or before the date of the Encounter. The data comes from the [place] facility where the Encounter took place. 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 Aug 24, 2021 11:30 AM VA-TOBACCO USE MED NO DRIVER Aug 24, 2021 11:30 AM VA-TOBACCO USE WI 30 MIN OF WAKEUP DRIVER Aug 24, 2021 11:30 AM VA-TOBACCO USER EVERY DAY DRIVER May 11, 2020 09:35 AM VA-TOBACCO DOESNT USE WI 30 MIN HOUSTONUP DRIVER May 11, 2020 09:35 AM VA-TOBACCO USE 30 YEARS OR MORE DRIVER May 11, 2020 09:35 AM VA-TOBACCO USE ADVICE DRIVER May 11, 2020 09:35 AM VA-TOBACCO USE BUCKLE ASSEMBLER NO DRIVER May 11, 2020 09:35 AM VA-TOBACCO USE MED NO DRIVER May 11, 2020 09:35 AM VA-TOBACCO USER EVERY DAY DRIVER Jan 28, 2019 10:44 AM VA-TOBACCO DOESNT USE WI 30 MIN WAKEUP DRIVER Jan 28, 2019 10:44 AM VA-TOBACCO USE 5 TO 15 YEARS DRIVER Jan 28, 2019 10:44 AM VA-TOBACCO USE ADVICE DRIVER Jan 28, 2019 10:44 AM VA-TOBACCO USE BUCKLE ASSEMBLER NO DRIVER Jan 28, 2019 10:44 AM VA-TOBACCO USE MED NO DRIVER Jan 28, 2019 10:44 AM VA-TOBACCO USER EVERY DAY DRIVER Nov 06, 2017 09:56 AM [facility] Nov 06, 2017 09:56 AM V1-PT NOT INTEREST ED IN QUIT TOBACCO USE DRIVER Sep 15, 2017 02:08 PM CURRENT SMOKER reports smoking about 1/2 pack small cigars/day DRIVER Encounter Notes: All associated encounter notes This section contains the clinical notes associated to the Encounter. Date/Time Encounter Note(s) Provider Source Sep 10, 2024 02:00 AM PHYSICIAN NOTE: LOCAL TITLE: MD NOTE STANDARD TITLE: PHYSICIAN NOTE DATE OF NOTE: SEP 10, 2024@02:00 ENTRY DATE: SEP 09, 2024@23:14:09 AUTHOR: Alli ARIAS EXP COSIGNER: URGENCY: STATUS: COMPLETED NOTE Has ADDENDA Pt is 74 y/o M with PMH of obesity, HTN, HL, DM2, CAD, MDD, PTSD last visit 04/[address] Mode Wiggins since 2009 - [facility] - q3m Other providers: -- [facility] -- EYE [facility] -- podiatry [place] -- kaiawhina kohanga reo, Dr. Radha Manrique ([facility] - )- retired -- endocrinology NON VA KASSI Michael last 05/2021 -- vascular surgery [facility] -> Dx PVI -- neurology [place] -h/a -- GI Dr Smith and Dr. Errol Delgado [facility] Would like to review recent stress test results and complaining of worsening nausea over the last month #diarrhea chronic unchanged, nausea worsening over the last month 3 yellow water BM per day nausea after eating sometimes vomiting no melena, no hematemesis feeling tired Ozempic was increased to 2 mg a month ago #obesity BMI 33 lost 10 lbs since last visit since GLP1RA increased to 2mg #DM2 - managed by non VA PCP /CPP Currently taking: Non-VA METFORMIN 1000MG BID SEMAGLUTIDE 2mg ASPART 12 units BID GLARGINE 26 units BID no sugar containg drinks likes candies denies p/p/p #HTN/HL/CAD not checking BP at home compliant with medications denies CP/SOB/JEWELL/palpitations/dizzi ness /?claudication denies h/o MT/CVA pt with limited mobility due to chronic issues with balance walking with a stick, very slowly #Tobacco: continues to smoke 3-4 skinny cigars daily not ready to quit #Knee pain #Bilateral knee osteoarthritis #Left pathologic fracture-subacute after fall f/w NEOS s/p injection, with improvement in sx #PVI- f/w nonVA PCP #Lower legs wounds-see previous notes for more details Per patient he was seen by [facility] vascular surgery a month ago, does not recall recommendations-no notes available for review today not wearing compression stockings regularly #Lower legs skin changes denies any fever chills Recently blood glucose readings improved Using moisturizer regularly Currently no open wounds PAST MEDICAL HISTORY: -- Obesity -- HL -- HTN -- DM2 -- CAD --evident on LDCT -- Neuropathy due to type 2 diabetes mellitus -- H/A -- PVD - evaluated by vascular surgery in 2020 CT a/p negative for exteranl compression on the iliac vein, no lymphadenopathy/masses which would account for compression/lymphedema -- Lung nodule : 12/2020 CT - 6 mm nodule incidental finding on CT done for evaluation of unilaterll LE edema by vascular surgery repeat LDCT 01/2023 showed stable nodule -- arthrosis CS/LS- s/p surgery -- Depression -- PTSD PAST SURGICAL HISTORY: -cataract -disc surgery LS x2 -cholecystectomy lap 05/2011 -L3-4 laminectomy 12/2014 C with ant cervical discectomy with fusion/pating 11/2015 ALLERGIES:NKDA MEDICATIONS: Reconciled today Non-VA ASPIRIN 81MG Non-VA LOVASTATIN 40MG Non-VA METOPROLOL TARTRATE 25MG BID Non-VA METFORMIN HCL 1000MG BID SEMAGLUTIDE 2MG/0.375ML ONCE A WEEK (2mg since 07/30/24) INSULIN,ASPART 12 units BID AC INSULIN,GLARGINE 26 units BID Non-VA CYANOCOBALAMIN TAB Non-VA VITAMIN B COMPLEX CAP,ORAL Non-VA VITAMIN D3 (CHOLECALCIFEROL) Non-VA GABAPENTIN 300MG TID MELATONIN 1MG CAP/TAB BEDTIME NEEDED INSOMNIA MIRTAZAPINE 30MG DULOXETINE 60MG TAB TOPIRAMATE 25MG BID FOR ANXIETY/HEADACHE (OFF LABEL FOR ANXIETY) AMMONIUM LACTATE 12% LOTION FAMILY HISTORY: --DM: father d 52 (diabetic) --Cancer: no --MT: father d 52 (diabetic) --CVA: mother in 40s (hemorrhagic stroke) SOCIAL HISTORY: --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 Son is supportive but he has his own difficulties w/ Crohns disease. 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 enjoys reading [employer] books still driving --Children: 3 biological children, 5 step children --Diet: regular diet --Exercise: minimal walking --Caffeine: 2-3c/day --EtOH: denies --Tob: Cigars 3-4 since 2011, h/o > 25 x PPDY --MJ:denies --Illicits:denies --Sexual activity: --Eye: UTD --Dental: dentures - not wearing --Hospitalizations: none recently ROS: Constitutional: no fever/no chills, no ns Eyes: no decreased vision/blurry vision Ears/Nose/Throat: no hearing change Respiratory: no cough/wheezing/SOB Cardiovascular: no CP /palpitations /NO LE edema Gastrointestinal: no abdominal pain/bloody/black stools diarrhea +, 3 liquid BM/day,yellow, nausea, vomiting sometimes :no dysuria/hematuria/trouble voiding Neuro: no dizziness/H/A MSK: left knee pain s/p injection f/w NEOS Skin: dry/erythematous skin with scaling LE - no open wounds, ambulates with a stick PHYSICAL EXAM: Vital Signs: Blood Pressure: 116/72 (09/10/2024 14:17) 135/73 (05/06/2024 10:21) 126/78 08/2023 135/80 (12/20/2022 14:42) 167/74 (12/20/2022 14:05)--> repeat manual 135/80 131/79 (12/18/2021 14:43) Pain: 0 (12/18/2021 14:43) Pulse: 86 (09/10/2024 14:17) Respiration: 18 (12/18/2021 14:43) Temperature: 97 F [36.1 C] (09/10/2024 14:17) Patient Weight: BMI 33 09/10/2024 14:17 248.2 lb [112.58 kg] 05/06/2024 10:21 257.8 lb [116.94 kg] 08/22/2023 13:15 247.5 lb [112.26 kg] 12/20/2022 14:05 257.2 lb [116.66 kg] 12/18/2021 14:43 258 lb [117.3 kg] 06/12/2020 12:45 262.1(118.89)[34*] 02/18/2019 10:31 250.4(113.58)[32*] 11/05/2018 16:11 247.1(112.08)[32*] Scalp actinic keratoses and excoriations GA: NAD edentulous cor: RRR, 2/6 systolic murmur at LUSB chest:CTA b/l abdomen: Central obesity NT/ND LE: No edema today chronic venous stasis changes b/l + hard, indurated skin with scalling, no open wounds Mild chronic erythema over the anterior aspect of lower legs bilaterally No calor + Few scabbed over areas without any discharge PT pulse diminished b/l onychomycosis, onycholysis, decreased sensation to MF using stick for assistance LABORATORY: --07/2024-- GLUCOSE, Fingerstick: 299 H HGB A1C (WR): 7.4 H 08/2024 --06/2024-- BNP: 73 CALCIUM: 9.1 MAGNESIUM: 1.4 L --04/2024--- WBC: 10.19 HGB: 14.2 HCT: 41.7 MCV: 92.9 PLT: 181 UREA NITROGEN: 17 CREATININE-EGFR: 0.80 eGFR CKD-EPI 2020: >90 SODIUM: 138 POTASSIUM: 4.0 CHLORIDE: 108 CO2: 21 MICROALB/CR RATIO: 17.5 MICROALBUMIN URINE: 2.5 CREATININE URINE: 143.08 PROTEIN,TOTAL: 6.8 ALBUMIN: 3.7 ALKALINE PHOSPHATASE: 52 BILIRUBIN,TOT.: 1.1 SGOT: 12 SGPT: 15 CHOLESTEROL: 177 TRIGLYCERIDE: 127 LDL CHOL: 99 HDL: 53 CHOL/HDL RATIO: 3.3 VIT. B12 (WROX): 677 TSH (Access): 1.32 VITAMIN D TOTAL: 27 PROSTATIC SP ANTIGEN: 0.71 IMAGING: #[facility] 11/18/2017 c/o increasingly worse headache episodes Impression No intra-cranial hemorrhage. No abnormal contrast enhancement in the brain. No significant stenosis, occlusion or aneurysm of the major intracranial arteries. Moderate chronic ischemic white matter changes. #01/2023 LDCT No significant interval change or new abnormality Mild emphysematous changes. Extensive atherosclerotic calcifications of the coronary arteries. #LDCT 01/2024 Mild emphysematous changes. Stable 5.9 mm in greatest dimension left lower lobe subpleural solid well-rounded nodule, 8-244. Interval resolution of the previously described pulmonary nodules. Scattered punctate calcified granulomas are noted as well. Mild bibasilar scarring/subsegmental atelectasis is noted. No focal consolidation. Mild dilatation of the left hemidiaphragm. No new concerning pulmonary nodule or mass is identified. #EKG 04/2024: Sinus rhythm at 81 bpm with frequent PVCs Prolonged QT interval- #ECHO 05/2024 Mild concentric LVH with normal left ventricular size and low normal systolic function LVEF 50%. Normal right ventricular size and systolic function. Aortic sclerosis without stenosis. No pericardial effusion. Borderline dilated aortic root 3.8 cm. Proximal ascending aorta 3.6 cm. #05/2024 zio ptch frequent isolated ventricular ectopy noted 7.9% Multiple episodes of Non-sustained VT #08/2024 NMPI c/w ischemia large in size, moderate to severe intensity, mostly reversible defect involving the basal to mid anterolateral and inferolateral wall. mild to moderate intensity, moderate size reversible defect of the inferior wall. There appears to be ischemic related chamber enlargement; however 3 TID is only 1.15. Conclusions Summary 1.) Abnormal myocardial perfusion imaging following regadenoson administration. There is evidence of inferior lateral as well as inferior ischemia. 2.) Normal rest and post-stress left ventricular chamber size and systolic function without regional wall motion abnormalities. ASSESSMENT/PLAN: Pt is 74 y/o M with PMH of obesity, HTN, HL, DM2, CAD, MDD, PTSD here today for follow-up #HTN - well controlled -c/w metoprolol 25 mg twice daily #HL: Uncontrolled LDL 99,Target LDL-C<70 mg/dl. ASCVD risk for patient is 46.3% risk of cardiovascular event in next 10 years. on NON VA lovastatin/fish oil -intensify statin atorvastatin 40 mg Strongly encouraged to quit smoking. #DM2: controlled A1c 7.4 - managed by non VA PCP and CPP metformin 1000 mg bid Glargine 26 units BID Bolus insulin 14 units bid SEMAGLUTIDE 2MG--> decrease semaglutide to 0.5 mg weekly (due to increased GI symptoms nausea and vomiting) -feet: Extensive onycholysis and keratoderma will place new referral to podiatry -eye: 01/2024 diabetes without retinopathy or macular edema OU #Arrhythmia: holter 05/2024 Frequent PVCs 7.9 %,Multiple episodes of Non-sustained VT ECHO 2023 LVEF 50% -patient denies presyncope, syncope, palpitations Stress test positive referred to cardiology see below #CAD: Extensive coronary calcification evident on LDCT, NMPI c/w ischemia inferior, inferolateral ischemia patient asymptomatic -Continue with BB,intensify statin, c/w aspirin -Referred to community care cardiology, pt instructed in case of any CP to go to ED #Active tobacoo user: not ready to quit-declines referral to SCP -Continue with lung cancer screening #PVI - chronic venous stasis skin changes, no edema today encouraged compression stocking/leg elevation Discussed regular moisturizer use Seen by vascular surgery to evaluate for underlying PVD -07/2024 -will request outside records #Unsteady gait, history of falls: Etiology likely multifactorial in the setting peripheral neuropathy, lumbar spine DDD, cervical spondylosis Prednisone [facility] PCP notes patient was seen by neurology recommended physical therapy but patient declined, did not find physical therapy helpful in the past -Fall precautions reviewed with patient today -He ambulates with a walking stick-declined referral to PT for gait evaluation and walker, a cane #Low back pain-lumbar DDD -Continue with gabapentin 300mg TID #Cervical spondylopathy: -S/p cervical spine surgery [address] Faye with improvement in symptoms #Polyneuropathy -On gabapentin #Chronic headaches: unremarkable CT head in 2018 -Doing well on topiramate 25 mg twice daily for headache prophylaxis #Vitamin B12 and vitamin D deficiency normalized on supplementation -Continue vitamin D 2000 units daily -Continue vitamin B supplementation #Intermittent diarrhea,?IBS, history of cholecystectomy, on metformin EGD 08/2022 diffuse erythema and nodular appearing mucosa in the gastric body Few chronic appearing erosions in the prepyloric area as well as patchy erythema in the duodenal bulb with also 10 mm benign-appearing nodule in the apex of the bulb-biopsies benign, negative H. pylori and celiac disease-changes c/w chronic active duodenitis -s/w loperamide 2 mg AC as needed- -check labs (CBC,BMP,LFTs,Mg) to Follow up with GI [facility]-Dr. Candis Barros. #Actinic keratosis scalp -Referred to [facility] dermatology #MDD, PTSD: Chronically depressed, denies SI today -f/w MELATONIN MIRTAZAPINE 30MG DULOXETINE 60mg TOPIRAMATE 25MG BID FOR ANXIETY Healthcare maintenance: --Lipids: LDL 99 (04/2024) --Diabetes: A1c 8.7 (04/2024)->7.4 (08/2024) --Colon CA (45-75): scheduled for 09/2024 EGD -gastritis and duodenitis in process of scheduling [facility] --GI (only EGD performed because patient did not complete colon prep) --Lung CA: due 01/2025 --PSA PSA 0.71 (04/2024) --AAA (smoker/65): 2019 no AAA --Influenza (yrly): 2022 --COVID: x3 --PCV20 2022 --PCV23: 2021 --RZV (>50yrs, x2): --TDAP: --Hep C screen: 2017 negative --HIV screen: --DEXA: --Advanced Directives: Comanagement - prefers to have most aspects of health maintenance, chronic condition(s) and medication management to non-IA PCP. Address at next visit: CAD, nausea Return to clinic to see me in 6 months, sooner PRN. Virtual ( ), F2F ( x ) (x )fasting labs ordered prior to f/u ( )no labs needed (x )request records from outside providers -Please obtain most recent notes from [facility], -[facility] [facility] - vascular surgery 07/2024 [facility] Follow Up Colonoscopy: Colonoscopy is due based on information available to this reminder. A colonoscopy is currently scheduled or in process of being scheduled. Medication Reconciliation: Outpatient: Has the patient been taking medications as documented in the EMLR? YES: The patient has been taking medications as documented in the EMLR. Essential Medication List for Review used to complete this medication reconciliation. INCLUDED IN THIS LIST: Alphabetical list of active outpatient prescriptions dispensed from this [place] (local) and dispensed from another [place] or [facility] facility (remote) as well as [...] with a VA or non-VA provider. /caio/ CHRISTI ARIAS MD PHYSICIAN Signed: 09/11/2024 21:23 Receipt Acknowledged By: 09/13/2024 09:03 /caio/ SARANYA JACQUES 09/13/2024 ADDENDUM STATUS: COMPLETED Records requested from [facility], [facility] wound care, NEOS DIRECTED /caio/ SARANYA JACQUES Signed: 09/13/2024 08:56 10/02/2024 ADDENDUM STATUS: COMPLETED [place] [facility] note dated 10/18/2022 received, sent to [facility]. Patient was discharged from wound care at this visit. Ortho notes dated 03/12/2024, 04/27/2024, and 06/11/2024 received, sent to [facility]. /caio/ Ayaka Mari RN Registered Nurse Signed: 10/02/2024 09:23 CATIA ARIASFIELD
--- OUTSIDE RECORDS SUMMARY | 2024-10-06 11:30 | XMS_ITS | Encounter Summary ---
Author Name [facility] [place] Organization [facility] [place] Address [address] [place] [id number] Care Team Providers Care Golf Instructor Name Role Phone CHRISTI ARIAS Primary Care [...] Name Patient's Relationship to Policy [facility] ([facility]) MEDICARE ADVANTAGE [facility] ([facility]) Nov 17, 2017 NONE [id number] DARRELL HUTCHINS PATIENT [facility] ([facility]) MEDICARE ADVANTAGE [facility] ([facility]) Nov 17, 2017 [id number] DARRELL HUTCHINS PATIENT MEDICAID MEDICAID [facility] Jan 15, 2017 MEDICAI D [id number] DARRELL HUTCHINS PATIENT Selected Encounter This section includes the information on record at [place] for the Encounter. Date/Time Encounter Type Encounter Description Reason Provider Source Oct 06, 2024 03:30 PM OFFICE O/P EST HI 40 [facility] - IND ICD-10-CM F32.9 Major depressive disorder, single episode, unspecified EUGENE WORKMAN IH Encounter Template Text not used by [place] Assessments - Encounter Diagnoses This section includes the primary and secondary diagnoses documented for the Encounter. Date/Time Primary/Secondary Diagnosis Diagnosis Name Provider Source Oct 06, 2024 04:43 PM PRIMARY Major depressive disorder, single episode, unspecified DENISSE WORKMAN [facility] Plan of Treatment: Future Appointments (+ 6 months) and Future Tests (+/- 45 days) The Plan of Treatment section includes future care activities for the patient from all [place] [facility]. This section includes future appointments and future orders which are active, pending or scheduled. Future Appointments This section includes appointments that were scheduled to occur 6 months from the date of the Encounter, up to a maximum of 20 appointments. The data comes from all [place] treatment facilities. Appointment Date/Time Appointment Type Appointme nt Facility Name Oct 28, 2024 03:00 PM AMBULATORY - MEDICINE [facility] Nov 02, 2024 12:00 PM AMBULATORY - MEDICINE [place] [facility] [place] [facility] Nov 05, 2024 03:30 PM AMBULATORY - MEDICINE [place] [facility] [place] [facility] Nov 08, 2024 01:00 PM AMBULATORY - MEDICINE [place] [facility] [place] [facility] Nov 25, 2024 09:00 AM AMBULATORY - NONE [facility] [place] [facility] Nov 26, 2024 02:05 PM AMBULATORY - MEDICINE [place] [facility] [place] [facility] Nov 30, 2024 02:00 PM AMBULATORY - PSYCHIATRY [facility] Nov 30, 2024 03:00 PM AMBULATORY - PSYCHIATRY [facility] Dec 07, 2024 10:30 AM AMBULATORY - MEDICINE [place] [facility] [place] [facility] Dec 17, 2024 12:00 PM AMBULATORY - MEDICINE [place] [facility] [place] [facility] Dec 21, 2024 11:00 AM AMBULATORY - MEDICINE [facility] [place] [facility] Dec 28, 2024 02:00 PM AMBULATORY - PSYCHIATRY [facility] Jan 06, 2025 01:00 PM AMBULATORY - PSYCHIATRY [facility] Jan 25, 2025 02:00 PM AMBULATORY - PSYCHIATRY [facility] Jan 25, 2025 03:00 PM AMBULATORY - PSYCHIATRY [facility] Feb 08, 2025 11:15 AM [facility]UL[facility] NONE [facility] Feb 08, 2025 11:30 AM AMBULATORY - MEDICINE [facility] Feb 10, 2025 01:00 PM AMBULATORY - PSYCHIATRY [facility] Feb 17, 2025 12:30 PM [facility] Mar 08, 2025 01:30 PM AMBULATORY - PSYCHIATRY [facility] Lab Results: +/- 30 days of the encounter This section includes the Chemistry and Hematology Lab Results on record with [place] for the patient. Radiology Reports and Pathology Reports are provided separately, in subsequent sections. Lab Results This section contains the Chemistry/Hematology Results that were resulted 30 days before or 30 daysafter the date of the Encounter. Date/Time Source Result Type Result - Unit Interpretation Reference Range Specimen Type Comment Oct 25, 2024 01:16 PM [facility] LIPID PANEL FASTING SERUM Specimen Ty pe: SERUM No comment entered. Ordering Provider: CHRISTI VALERIO Report Released Date/Time: Oct 22, 2024 03:16 PM Reporting Lab: [facility] [address] [address] Performing Lab: [facility] [address] [address] CHOLESTEROL 132 mg/dL TRIGLYCERIDE 161 mg/dL H 0-150 LDL calculated 71 mg/dL 0-129 CHOL/HDL 4.6 HDL CHOLESTEROL 29 mg/dL L 40-60 Oct 25, 2024 01:16 PM [facility] BASIC METABOLIC PANEL (fasting) SERUM Specimen Type: SERUM No comment entered. Ordering Provider: CHRISTI ARIAS Report Released Date/Time: Oct 22, 2024 03:16 PM Reporting Lab: [facility] [address] [address] Performing [facility]: [facility] [address] [address] UREA NITROGEN 18 mg/dL 7-25 GLUCOSE 197 mg/dL H 65-100 SODIUM 137 mmol/L 135-145 POTASSIUM 3.4 mmol/L L 3.5-5.0 CHLORIDE 105 mmol/L 100-110 CO2 24 meq/L 20-30 CREATININE, Serum 0.83 mg/dL 0.50-1.40 eGFR(CKD-EPI 2020) >90 mL/min >60 Oct 25, 2024 01:16 PM [facility] LIVER FUNCTION SERUM Specimen Type: S NICOLE No comment entered. Ordering Provider: CHRISTI ARIAS Report Released Date/Time: Oct 22, 2024 03:16 PM Reporting Lab: [address] [address] Performing Lab: [address] [address] PROTEIN,TOTAL 6.3 g/dL 6.0-8.3 ALBUMIN 3.2 g/dL L 3.5-5.0 ALKALINE PHOSPHATASE 53 U/L 40-150 AST 10 U/L 5-34 ALT 9 U/L BILIRUBIN, TOTAL 0.8 mg/dL 0.2-1.2 Oct 25, 2024 01:16 PM [facility] TSH SERUM Sp ecimen Type: SERUM No comment entered. Ordering Provider: CHRISTI ARIAS Report Released Date/Time: Oct 22, 2024 03:16 PM Reporting Lab: [address] [address] Performing Lab: [address] [address] TSH 1.28 u[IU]/mL 0.35-5.00 Oct 25, 2024 01:16 PM [facility] HEMOGLOBIN A1C PANEL BLOOD Specimen T ype: BLOOD Comment: Values obtained from A1C measurements can vary. For atypical A1C assays, a reported value of 7.0 could actually be between 6.72 and 7.28 if measured by a reference method. A reported value of 9.0 could actually be between 8.73 and 9.27. Ref: http://www.ngsp.org/CAPdata.asp Ordering Provider: CHRISTI ARIAS Report Released Date/Time: Oct 22, 2024 03:16 PM Reporting Lab: [address] [address] Performing Lab: [place] [address] [facility] [address] HEMOGLOBIN A1C 9.4 H 4.0-5.6 Oct 25, 2024 01:16 PM [facility] CBC AND DIFF (AUTO) BLOOD Specimen Ty pe: BLOOD No comment entered. Ordering Provider: CHRISTI ARIAS Report Released Date/Time: Oct 22, 2024 03:16 PM Reporting Lab: [facility] [address] [facility] [address] Performing Lab: [facility] [address] [facility] [address] WBC 8.22 10*3/uL 4.50-11.00 RBC 4.68 10*6/uL 4.23-5.66 HGB 14.5 g/dL 12.8-17 HCT 41.4 39.2-50.4 MCV 88.5 fL 82-99 MCHC 35.0 g/dL 30.8-35.1 PLT 229 10*3/uL 140-360 RDW-CV 12.3 12.0-16.0 MONO, ABS 0.45 10*3/uL 0.30-1.10 MCH 31.0 pg 26.2-32.6 NEUT % 70.3 43.7-75.8 LYMPH % 19.5 14.0-42.3 MONO % 5.5 5.1-13.7 EOS % 2.9 0.4-6.8 BASO % 0.9 0.1-2.0 NEUT, ABS 5.79 10*3/uL 2.20-7.60 LYMPH, ABS 1.60 10*3/uL 1.00-3.20 EOS, ABS 0.24 10*3/uL 0.03-0.44 BASO, ABS 0.07 10*3/uL 0.01-0.13 IMMATURE GRAN % 0.9 H 0.0-0.7 IMMATURE GRAN, ABS 0.07 10*3/uL H 0.00-0.0 6 NRBC % 0.0 0.0-0.0 NRBC, ABS 0.00 10*3/uL 0.00-0.00 Sep 08, 2024 02:48 PM [facility] GLUCOSE, Fingerstick BLOOD Specimen Type: BLO OD Comment: For GLU FinTest performed by: Stacy Lr For GLU Fin Meter #: [id number] Ordering Provider: CHRISTI ARIAS Report Released Date/Time: Sep 08, 2024 03:54 PM Reporting Lab: [facility] [address] [facility] [address] Performing Lab: [place] [facility] [address] [facility] [address] GLUCOSE, Fingerstick 299 mg/dL H 65-100 Social History: Smoking Status (Most current) and Tobacco Use (All prior to encounter date) This section includes the most current, and the historical, smoking and tobacco- related health factors from the [place] facility where the Encounter took place. Current Smoking Status This section includes the most current smoking, or tobacco-related health factor, from the [place] facility where the Encounter took place. Date/Time Current Smoking Status Comment Kiki edmonds Aug 24, 2021 11:30 AM VA-TOBACCO USER EVERY DAY [facility] Tobacco Use History This section includes a history of the smoking, or tobacco-related health factors, that were collected on or before the date of the Encounter. The data comes from the [place] facility where the Encounter took place. 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 [facility] May 11, 2020 09:35 AM VA-TOBACCO USE MED NO [facility] May 11, 2020 09:35 AM VA-TOBACCO USER EVERY DAY [facility] Jan 28, 2019 10:44 AM VA-TOBACCO DOESNT USE WI 30 MIN [place] [facility] Jan 28, 2019 10:44 AM VA-TOBACCO USE 5 TO 15 YEARS [facility] Jan 28, 2019 10:44 AM VA-TOBACCO USE ADVICE [facility] Jan 28, 2019 10:44 AM 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 Date/Time Encounter Note(s) Provider Source Oct 06, 2024 04:43 PM ADDENDUM: LOCAL TITLE: Addendum STANDARD TITLE: ADDENDUM DATE OF NOTE: OCT 06, 2024@16:43:34 ENTRY DATE: OCT 06, 2024@16:43:35 AUTHOR: DENISSE WORKMAN EXP COSIGNER: URGENCY: STATUS: COMPLETED note that pt has meals on wheels, marie gonzalez -- wh he likes; and he states has appt w VN friday I will ask Camila to call pt next wk to: -check in on how VN visit went -see if pt is interested in [facility] services referral -set up appt with Camila for supportive visits -see if pt elegible for waiver for pharmacy charges /caio/ DENISSE WORKMAN MD STAFF PSYCHIATRIST Signed: 10/06/2024 18:05 Receipt Acknowledged By: 11/03/2024 15:42 /caio/ TULIO Huntley GRINDING WHEEL FACER --- Original Document --- 10/06/24 PSYCHIATRY NOTE: 40 min for encounter, including chart review, interview, charting chart reviewed Patient presents as stable. Good mood today. Depression improved. PTSD symptoms, irritability improved. Patient feels he is benefiting from current medication. Affect bright, appropriate. The patient denies SI and violent ideation. Thoughts are well organized. No paranoid or delusional content presented. Denies hallucinations. Speech normal. Cognitive exam grossly unchanged. Insomnia improved. Again, has interests, for example reading, he becomes animated as he discusses his reading, and enjoys his building with Legos. As with each interview, the patient clearly enjoys talking, telling stories. He again has good sense of humor. He again likes to talk about current events. Good hygiene. No slowing noted. We reviewed the current psychiatric medication and the patient has improved in terms of depression and is tolerating medication well. We decided to keep the medication the same, see below. Denies psych med side effects. Denies daytime sedation. Reports med compliance h/o heavy alcohol -- stopped about 5 yrs ago, except reports very occasional drink; denies recent cannabis; denies street drugs Pt ; Pt is close to his son, who lives w him. 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 some benefit pt stopped sonata IMPRESSION: DSM-5 Unspecified depressive do --improved PTSD -- from childhood and possibly - improved Alcohol use do -- yrs ago -- reports very limited for the past 5 yrs HAs -- sees neuro PLAN: Performed careful risk assessment. See C-SSRS below. The patient denies suicidal and violent ideation (but has past history of intermittent suicidal ideation, without plan or intent) The pt is probably low risk for suicide or violence, but the Urgent Group Crisis Line information and number were reviewed [...] above reasoning continue psychotherapy w Dr Perla , and supportive sessions w Camila Again, aee 05/09 primary care addendum to my 03/17 [...] today. Also see below for more discussion. CONTINUE CYMBALTA 60 MG DAILY for depression, significant improvement -patient does not feel he needs dose increase. Note that patient appears to have better response to Cymbalta than the previous Zoloft CONTINUE REMERON 30 MG QHS to augment Cymbalta for mood/anxiety/ptsd and may help sleep ; I reviewed risk of next day sedation , falling, wt gain w pt --patient denies side effects, patient feels benefits outweigh risks -- pt tolerates well. But we may consider tapering this off, but no change today, as pt prefers to keep medication the same because he is improved; benefits outweigh risks CONTINUE TOPAMAX 25 MG BID for anxiety [...] primary care about medical problems As noted in previous notes, additional information: (I wrote this information in [...] we have changed to cymbalta from zoloft ; and cymbalta is thought to have even lower effect on QTc (if any) according to Up to Date. Patient appears to have done well with the change to Cymbalta, but patient prefers not to try tapering down Remeron at this point, because he feels the combination of medication is helping significantly. He feels benefits outweigh risks, which is reasonable. Medication Reconciliation: Outpatient: Has the patient been [...] whether with a VA or non-VA provider. Suicide Screen: C-SSRS Screening [place]-Suicide Severity Rating Scale (C-SSRS Screener) 1. Over the past month, have you wished you were or wished you could go to sleep and not wake up? No 2. Over the past month, have you had any actual thoughts of killing yourself? No 3. Over the past month, have you been thinking about how you might do this? Response not required due to responses to other questions. 4. Over the past month, have you had these thoughts and had some intention of acting on them? Response not required due to responses to other questions. 5. Over the past month, have you started to work out or worked out the details of how to kill yourself? Response not required due to responses to other questions. 6. If yes, at any time in the past month did you intend to carry out this plan? Response not required due to responses to other questions. 7. In your lifetime, have you ever done anything, started to do anything, or prepared to do anything to end your life (for example, collected pills, obtained a gun, gave away valuables, went to the roof but didn't jump)? No 8. If YES, was this within the past 3 months? Response not required due to responses to other questions. /caio/ DENISSE WORKMAN MD STAFF PSYCHIATRIST Signed: 10/06/2024 16:43 10/13/2024 ADDENDUM STATUS: COMPLETED Request [email or web address], will call next week. /carmen Jannette Stella TULIO Avelar GRINDING WHEEL FACER Signed: 10/13/2024 08:07 10/20/2024 ADDENDUM STATUS: COMPLETED VM left asking for a return call. /carmen Jannette AlliTULIO Richardson GRINDING WHEEL FACER Signed: 10/20/2024 10:50 10/26/2024 ADDENDUM STATUS: COMPLETED 2nd VM left asking for a return call. /carmen Jannette CarsonJason TULIO Avelar GRINDING WHEEL FACER Signed: 10/26/2024 10:25 DENISSE WORKMAN P[facility] Oct 06, 2024 03:59 PM PSYCHIATRY NOTE: LOCAL TITLE: PSYCHIATRY NOTE STANDARD TITLE: PSYCHIATRY NOTE DATE OF NOTE: OCT 06, 2024@15:59 ENTRY DATE: OCT 06, 2024@15:59:27 AUTHOR: DENISSE WORKMAN EXP COSIGNER: URGENCY: STATUS: COMPLETED PSYCHIATRY NOTE Has ADDENDA 40 min for encounter, including chart review, interview, charting chart reviewed Patient presents as stable. Good mood today. Depression improved. PTSD symptoms, irritability improved. Patient feels he is benefiting from current medication. Affect bright, appropriate. The patient denies SI and violent ideation. Thoughts are well organized. No paranoid or delusional content presented. Denies hallucinations. Speech normal. Cognitive exam grossly unchanged. Insomnia improved. Again, has interests, for example reading, he becomes animated as he discusses his reading, and enjoys his building with Legos. As with each interview, the patient clearly enjoys talking, telling stories. He again has good sense of humor. He again likes to talk about current events. Good hygiene. No slowing noted. We reviewed the current psychiatric medication and the patient has improved in terms of depression and is tolerating medication well. We decided to keep the medication the same, see below. Denies psych med side effects. Denies daytime sedation. Reports med compliance h/o heavy alcohol -- stopped about 5 yrs ago, except reports very occasional drink; denies recent cannabis; denies street drugs Pt ; Pt is close to his son, who lives w him. 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 some benefit pt stopped sonata IMPRESSION: DSM-5 Unspecified depressive do --improved PTSD -- from childhood and possibly - improved Alcohol use do -- yrs ago -- reports very limited for the past 5 yrs HAs -- sees neuro PLAN: Performed careful risk assessment. See C-SSRS below. The patient denies suicidal and violent ideation (but has past history of intermittent suicidal ideation, without plan or intent) The pt is probably low risk for suicide or violence, but the Urgent Group Crisis Line information and number were reviewed [...] above reasoning continue psychotherapy w Dr Perla , and supportive sessions w Camila Again, aee 05/09 primary care addendum to my 03/17 [...] today. Also see below for more discussion. CONTINUE CYMBALTA 60 MG DAILY for depression, significant improvement -patient does not feel he needs dose increase. Note that patient appears to have better response to Cymbalta than the previous Zoloft CONTINUE REMERON 30 MG QHS to augment Cymbalta for mood/anxiety/ptsd and may help sleep ; I reviewed risk of next day sedation , falling, wt gain w pt --patient denies side effects, patient feels benefits outweigh risks -- pt tolerates well. But we may consider tapering this off, but no change today, as pt prefers to keep medication the same because he is improved; benefits outweigh risks CONTINUE TOPAMAX 25 MG BID for anxiety [...] primary care about medical problems As noted in previous notes, additional information: (I wrote this information in [...] we have changed to cymbalta from zoloft ; and cymbalta is thought to have even lower effect on QTc (if any) according to Up to Date. Patient appears to have done well with the change to Cymbalta, but patient prefers not to try tapering down Remeron at this point, because he feels the combination of medication is helping significantly. He feels benefits outweigh risks, which is reasonable. Medication Reconciliation: Outpatient: Has the patient been taking medications as documented in the EMLR? YES: The patient has been taking medications as documented in the EMLR. Essential Medication List for Review used to complete this medication reconciliation. INCLUDED IN THIS LIST: Alphabetical list of active outpatient prescriptions dispensed from this [facility] (local) and dispensed from another [place] or [facility] facility (remote) as well as [...] whether with a VA or non-VA provider. Suicide Screen: C-SSRS Screening [place]-Suicide Severity Rating Scale (C-SSRS Screener) 1. Over the past month, have you wished you were or wished you could go to sleep and not wake up? No 2. Over the past month, have you had any actual thoughts of killing yourself? No 3. Over the past month, have you been thinking about how you might do this? Response not required due to responses to other questions. 4. Over the past month, have you had these thoughts and had some intention of acting on them? Response not required due to responses to other questions. 5. Over the past month, have you started to work out or worked out the details of how to kill yourself? Response not required due to responses to other questions. 6. If yes, at any time in the past month did you intend to carry out this plan? Response not required due to responses to other questions. 7. In your lifetime, have you ever done anything, started to do anything, or prepared to do anything to end your life (for example, collected pills, obtained a gun, gave away valuables, went to the roof but didn't jump)? No 8. If YES, was this within the past 3 months? Response not required due to responses to other questions. /caio/ DENISSE WORKMAN MD STAFF PSYCHIATRIST Signed: 10/06/2024 16:43 10/06/2024 ADDENDUM STATUS: COMPLETED note that pt has meals on wheels, marie gonzalez -- wh he likes; and he states has appt w VN friday I will ask Camila to call pt next wk to: -check in on how VN visit went -see if pt is interested in [facility] services referral -set up appt with Camila for supportive visits -see if pt elegible for waiver for pharmacy charges /carmen WORKMAN MD STAFF PSYCHIATRIST Signed: 10/06/2024 18:05 Receipt Acknowledged By: * AWAITING SIGNATURE * JANNETTE AVELAR 10/13/2024 ADDENDUM STATUS: COMPLETED Request acknolwedged, will call next week. /TULIO Mcneill GRINDING WHEEL FACER Signed: 10/13/2024 08:07 10/20/2024 ADDENDUM STATUS: COMPLETED VM left asking for a return call. /TULIO Mcneill GRINDING WHEEL FACER Signed: 10/20/2024 10:50 10/26/2024 ADDENDUM STATUS: COMPLETED 2nd VM left asking for a return call. /caio/ TULIO Huntley GRINDING WHEEL FACER Signed: 10/26/2024 10:25 DENISSE WORKMAN
--- OUTSIDE RECORDS SUMMARY | 2024-10-28 11:00 | XMS_ITS | Encounter Summary ---
Author Name [facility] [place] Organization [facility] [place] Address [address] [place] [id number] Care Team Providers Care Supervisor [employer] Name Role Phone CHRISTI ARIAS Primary Care [...] Name Patient's Relationship to Policy [facility] ([facility]) MEDICARE ADVANTAGE [facility] ([facility]) Nov 17, 2017 NONE [id number] DARRELL HUTCHINS PATIENT [facility] ([facility]) MEDICARE ADVANTAGE [facility] ([facility]) Nov 17, 2017 [id number] DARRELL HUTCHINS PATIENT MEDICAID MEDICAID [facility] Jan 15, 2017 MEDICAI D [id number] DARRELL HUTCHINS PATIENT Selected Encounter This section includes the information on record at [place] for the Encounter. Date/Time Encounter Type Encounter Description Reason Provider Source Oct 28, 2024 03:00 PM OFFICE O/P EST HI 40 MIN PRIMARY CARE/MEDICINE ICD-10-CM I10 Essential (primary) hypertension CHRISTI HERNADEZ Johanna Encounter Template Text not used by [facility] Assessments - Encounter Diagnoses This section includes the primary and secondary diagnoses documented for the Encounter. Date/Time Primary/Secondary Diagnosis Diagnosis Name Provider Source Oct 30, 2024 09:29 AM PRIMARY Essential (primary) hypertension CHRISTI MAGUIRE [facility] Oct 30, 2024 09:29 AM SECONDARY Actinic keratosis CHRISTI MAGUIRE [facility] Oct 30, 2024 09:29 AM SECONDARY Athscl heart disease of [place] coronary artery w/o ang pctrs CHRISTI MAGUIRE [facility] Oct 30, 2024 09:29 AM SECONDARY Cardiac arrhythmia, unspecified STEVE-TRACYKO CHRISTI CANELA [facility] Oct 30, 2024 09:29 AM SECONDARY Cervicalgia CHRISTI MAGUIRE [facility] Oct 30, 2024 09:29 AM SECONDARY Deficiency of other specified B group vitamins CHRISTI MAGUIRE [facility] Oct 30, 2024 09:29 AM SECONDARY Diarrhea, unspecified SAPPHIREAZDIN-BOSKO HILTON,CHRISTI [facility] Oct 30, 2024 09:29 AM SECONDARY Headache, unspecified SAPPHIREAZDIN-BOSKO HILTON,CHRISTI Mloina [facility] Oct 30, 2024 09:29 AM SECONDARY Hyperlipidemia, unspecified SAPPHIREAZDIN-BOSKO HILTON,CHRISTI [facility] Oct 30, 2024 09:29 AM SECONDARY Low back pain, unspecified SAPPHIREAZDIN-BOSKO HILTON,CHRISTI [facility] Oct 30, 2024 09:29 AM SECONDARY Major depressive disorder, single episode, unspecified SAPPHIREAZDIN-BOSKO HILTONCHRISTI [facility] Oct 30, 2024 09:29 AM SECONDARY Other abnormalities of gait and mobility STEVE-BOSKO CHRISTI CANELA [facility] Oct 30, 2024 09:29 AM SECONDARY Pain in left knee STEVE-CHRISTI JORDAN [facility] Oct 30, 2024 09:29 AM SECONDARY Post-traumatic stress disorder, unspecified SAPPHIREAZDINCHRISTI BLACK [facility] Oct 30, 2024 09:29 AM SECONDARY Tobacco use CHRISTI MAGUIRE [facility] Oct 30, 2024 09:29 AM SECONDARY Type 2 diabetes mellitus with diabetic polyneuropathy CHRISTI MAGUIRE [facility] Oct 30, 2024 09:29 AM SECONDARY Type 2 diabetes mellitus with hyperglycemia ZIYAD CANELACHRISTI Molina [facility] Oct 30, 2024 09:29 AM SECONDARY Venous insufficiency (chronic) (peripheral) CHRISTI MAGUIRE [facility] Oct 30, 2024 09:29 AM SECONDARY Vitamin D deficiency, unspecified KIKEJAQUELIN CANELACHRISTI Molina [facility] Plan of Treatment: Future Appointments (+ 6 months) and Future Tests (+/- 45 days) The Plan of Treatment section includes future care activities for the patient [facility] [place] [facility] This section includes future appointments and future orders which are active, pending or scheduled. Future Appointments This section includes appointments that were scheduled to occur 6 months from the date of the Encounter, up to a maximum of 20 appointments. The data comes from all [place] treatment [facility]. Appointment Date/Time Appointment Type Appointme nt Facility Name Nov 02, 2024 12:00 PM AMBULATORY - MEDICINE [facility] [place] [facility] Nov 05, 2024 03:30 PM AMBULATORY - MEDICINE [facility] [place] [facility] Nov 08, 2024 01:00 PM AMBULATORY - MEDICINE [facility] [place] [facility] Nov 25, 2024 09:00 AM AMBULATORY - NONE [facility] [place] [facility] Nov 26, 2024 02:05 PM AMBULATORY - MEDICINE [facility] [place] [facility] Nov 30, 2024 02:00 PM AMBULATORY - PSYCHIATRY [facility] Nov 30, 2024 03:00 PM AMBULATORY - PSYCHIATRY [facility] Dec 07, 2024 10:30 AM AMBULATORY - MEDICINE [facility] [place] [facility] Dec 17, 2024 12:00 PM AMBULATORY - MEDICINE [facility] [place] [facility] Dec 21, 2024 11:00 AM AMBULATORY - MEDICINE [facility] [place] [facility] Dec 28, 2024 02:00 PM AMBULATORY - PSYCHIATRY [facility] Jan 06, 2025 01:00 PM AMBULATORY - PSYCHIATRY [facility] Jan 25, 2025 02:00 PM AMBULATORY - PSYCHIATRY [facility] Jan 25, 2025 03:00 PM AMBULATORY - PSYCHIATRY [facility] Feb 08, 2025 11:15 AM AMBUL[facility]ORY - NONE [facility] Feb 08, 2025 11:30 AM AMBULATORY - MEDICINE [facility] [place] [facility] Feb 10, 2025 01:00 PM AMBULATORY - PSYCHIATRY [facility] Feb 17, 2025 12:30 PM [facility] Mar 08, 2025 01:30 PM AMBULATORY - PSYCHIATRY [facility] Mar 08, 2025 02:00 PM AMBULATORY - PSYCHIATRY [facility] Lab Results: +/- 30 days of the encounter This section includes the Chemistry and Hematology Lab Results on record with [place] for the patient. Radiology Reports and Pathology Reports are provided separately, in subsequent sections. Lab Results This section contains the Chemistry/Hematology Results that were resulted 30 days before or 30 daysafter the date of the Encounter. Date/Time Source Result Type Result - Unit Interpretation Reference Range Specimen Type Comment Oct 25, 2024 01:16 PM [facility] LIPID PANEL FASTING SERUM Specimen Ty pe: SERUM No comment entered. Ordering Provider: CHRISTI VALERIO Report Released Date/Time: Oct 22, 2024 03:16 PM Reporting Lab: [facility] [address] [address] Performing Lab: [facility] [address] [address] CHOLESTEROL 132 mg/dL TRIGLYCERIDE 161 mg/dL H 0-150 LDL calculated 71 mg/dL 0-129 CHOL/HDL 4.6 HDL CHOLESTEROL 29 mg/dL L 40-60 Oct 25, 2024 01:16 PM [facility] BASIC METABOLIC PANEL (fasting) SERUM Specimen Type: SERUM No comment entered. Ordering Provider: CHRISTI ARIAS Report Released Date/Time: Oct 22, 2024 03:16 PM Reporting Lab: [facility] [address] [address] Performing Lab: [address] [address] UREA NITROGEN 18 mg/dL 7-25 GLUCOSE 197 mg/dL H 65-100 SODIUM 137 mmol/L 135-145 POTASSIUM 3.4 mmol/L L 3.5-5.0 CHLORIDE 105 mmol/L 100-110 CO2 24 meq/L 20-30 CREATININE, Serum 0.83 mg/dL 0.50-1.40 eGFR(CKD-EPI 2020) >90 mL/min >60 Oct 25, 2024 01:16 PM [facility] LIVER FUNCTION SERUM Specimen Type: S NICOLE No comment entered. Ordering Provider: CHRISTI ARIAS Report Released Date/Time: Oct 22, 2024 03:16 PM Reporting Lab: [address] [address] Performing Lab: [address] [address] PROTEIN,TOTAL 6.3 g/dL 6.0-8.3 ALBUMIN 3.2 g/dL L 3.5-5.0 ALKALINE PHOSPHATASE 53 U/L 40-150 AST 10 U/L 5-34 ALT 9 U/L BILIRUBIN, TOTAL 0.8 mg/dL 0.2-1.2 Oct 25, 2024 01:16 PM [facility] TSH SERUM Sp ecimen Type: SERUM No comment entered. Ordering Provider: CHRISTI ARIAS Report Released Date/Time: Oct 22, 2024 03:16 PM Reporting Lab: [address] [address] Performing Lab: [address] [address] TSH 1.28 u[IU]/mL 0.35-5.00 Oct 25, 2024 01:16 PM [facility] HEMOGLOBIN A1C PANEL BLOOD Specimen T ype: [...] Oct 22, 2024 03:16 PM Reporting Lab: [address] [address] Performing Lab: [address] [address] HEMOGLOBIN A1C 9.4 H 4.0-5.6 Oct 25, 2024 01:16 PM [facility] CBC AND DIFF (AUTO) BLOOD Specimen Ty pe: BLOOD No comment entered. Ordering Provider: CHRISTI ARIAS Report Released Date/Time: Oct 22, 2024 03:16 PM Reporting Lab: [address] [address] Performing Lab: [address] [address] WBC 8.22 10*3/uL 4.50-11.00 RBC 4.68 10*6/uL [...] 0.0 0.0-0.0 NRBC, ABS 0.00 10*3/uL 0.00-0.00 Vital Signs: All taken on the encounter date This section contains inpatient and outpatient Vital Signs collected on the date of the Encounter. Date/Time Temperature Pulse Blood Pressure Respiratory Rate SP02 Pain Height Weight Body Mass Index Source Oct 28, 2024 03:31 PM 98.2 88 121/75 97 252 32 [facility] Social History: Smoking Status (Most current) and [...] place. Date/Time Current Smoking Status Comment Facil itjuan pablo Aug 24, 2021 11:30 AM VA-TOBACCO USER EVERY DAY [facility] Tobacco Use History This section includes a history of the smoking, or tobacco-related health factors, that were collected on or before the date of the Encounter. The data comes from the [place] facility where the Encounter took place. 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 [facility] Aug 24, 2021 11:30 AM VA-TOBACCO USE MED [facility] Aug 24, 2021 11:30 AM VA-TOBACCO USE WI 30 MIN OF WAKEUP [facility] Aug 24, 2021 11:30 AM VA-TOBACCO USER EVERY DAY [facility] May 11, 2020 09:35 AM VA-TOBACCO DOESNT USE WI 30 MIN EMPIREUP [facility] May 11, 2020 09:35 AM VA-TOBACCO USE 30 YEARS OR MORE [facility] May 11, 2020 09:35 AM VA-TOBACCO USE ADVICE [facility] May 11, 2020 09:35 AM VA-TOBACCO USE CORPORATE FITNESS PROGRAM COORDINATOR NO [facility] May 11, 2020 09:35 AM VA-TOBACCO USE MED NO [facility] May 11, 2020 09:35 AM VA-TOBACCO USER EVERY DAY [facility] Jan 28, 2019 10:44 AM VA-TOBACCO DOESNT USE WI 30 MIN EMPIREUP [facility] Jan 28, 2019 10:44 AM VA-TOBACCO USE 5 TO 15 YEARS [facility] Jan 28, 2019 10:44 AM VA-TOBACCO USE ADVICE [facility] Jan 28, 2019 10:44 AM VA-TOBACCO USE CORPORATE FITNESS PROGRAM COORDINATOR NO [facility] Jan 28, 2019 10:44 AM VA-TOBACCO USE MED NO [facility] Jan 28, 2019 10:44 AM VA-TOBACCO USER EVERY DAY [facility] Nov 06, 2017 09:56 AM CURRENT SMOKER [facility]A [facility] Nov 06, 2017 09:56 AM V1-PT NOT INTEREST ED IN QUIT TOBACCO USE [facility] Sep 15, 2017 02:08 PM CURRENT SMOKER reports smoking about 1/2 pack small cigars/day [facility] Encounter Notes: All associated encounter notes This section contains the clinical notes associated to the Encounter. Date/Time Encounter Note(s) Provider Source Oct 28, 2024 03:00 PM PHYSICIAN NOTE: LOCAL TITLE: MD NOTE STANDARD TITLE: PHYSICIAN NOTE DATE OF NOTE: OCT 28, 2024@15:00 ENTRY DATE: OCT 27, 2024@23:19:38 AUTHOR: Alli ARIAS COSIGNER: URGENCY: STATUS: COMPLETED NOTE Has ADDENDA Pt is pleasant 74 y/o M with PMH of obesity, HTN, HL, DM2, CAD, MDD, PTSD last visit 08/[address] Mode Wiggins since 2009 - [facility] - q3m Other providers: -- [facility] -- [place] -- podiatry [place] -- objects conservator, Dr. 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 Norton -[facility] -- [facility] Patient reports feeling well Has no new concerns Patient brought all his medications for reconciliation today Since last visit, #nausea vomiting resolved with decreasing dose of semaglutide from 2 mg back to 0.5 mg weekly patient regained 4 pounds since then # Diarrhea also resolved with loperamide as needed-see previous notes for more details Currently taking loperamide 2-3 times a week Has regular bowel movement #obesity BMI 32.4 #DM2 - managed by non VA PCP /CPP Currently taking: Non-VA METFORMIN 1000MG BID SEMAGLUTIDE 0.5mg ASPART 12 units BID GLARGINE 26 units BID Avoiding sugar containg drinks He admits dietary indiscretions, likes candies denies p/p/p #HTN/HL/CAD not checking BP at home compliant with medications denies CP/SOB/JEWELL/palpitations/dizzi ness /claudication denies h/o ME/CVA pt with limited mobility due to chronic issues with balance walking with a stick, very slowly #Tobacco: continues to smoke 3-4 skinny cigars daily not ready to quit #Knee pain #Bilateral knee osteoarthritis #Left pathologic fracture-subacute after fall f/w NEOS s/p injection, with improvement in sx #PVI- f/w nonVA PCP #Lower legs skin stasis changes, no open wounds, dry scaling skin seen by [facility] vascular surgery earlier this week ROSE > 1 bilaterally He has reflux in both saphenous veins PAST MEDICAL HISTORY: -- Obesity -- HL -- HTN -- DM2 -- CAD --evident on LDCT -- Neuropathy due to type 2 diabetes mellitus -- H/A -- PVD - evaluated by vascular surgery 2020 CT a/p negative for exteranl compression on the iliac vein, no lymphadenopathy/masses which would account for compression/lymphedema vascular surgery 07/2024- ROSE >1 b/l, reflux in both saphenous veins, not particularly enlarged -- Lung nodule : 12/2020 CT - [...] ALLERGIES:NKDA MEDICATIONS: Reconciled today Non-VA ASPIRIN 81MG ATORVASTATIN CALCIUM 40MG Non-VA METOPROLOL TARTRATE 25MG BID Non-VA METFORMIN HCL 1000MG BID SEMAGLUTIDE 0.5MG/0.375ML ONCE A WEEK (2mg since 07/30/24) INSULIN,ASPART 12 units BID AC INSULIN,GLARGINE 26 units BID LOPERAMIDE HCL 2MG CAP TAKE ONE Non-VA CYANOCOBALAMIN TAB Non-VA FISH OIL MgO 420mg DAILY Non-VA GABAPENTIN 300MG TID MELATONIN 1MG CAP/TAB BEDTIME NEEDED INSOMNIA MIRTAZAPINE 30MG DULOXETINE 60MG TAB TOPIRAMATE 25MG BID FOR ANXIETY/HEADACHE (OFF LABEL FOR ANXIETY) AMMONIUM LACTATE 12% LOTION MUPIROCIN 2% OINT FAMILY HISTORY: --DM: father d 52 (diabetic) --Cancer: no --ME: father d 52 (diabetic) --CVA: mother in 40s (hemorrhagic stroke) SOCIAL HISTORY: --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 Son is supportive but he has his own difficulties w/ Crohns disease. 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 enjoys reading [employer] books still driving --Children: 3 biological children, [...] LE edema Gastrointestinal: no abdominal pain/bloody/black stools Denies nausea vomiting constipation, sometimes loose stools, much improved since last visit :no dysuria/hematuria/trouble voiding Neuro: no dizziness/H/A MSK: left knee pain s/p injection f/w NEOS Skin: dry/erythematous skin with scaling LE - no open wounds, ambulates with a stick PHYSICAL EXAM: Vital Signs: Blood Pressure: 121/75 (10/28/2024 15:31) 116/72 (09/10/2024 14:17) 135/73 (05/06/2024 10:21) 126/78 08/2023 135/80 (12/20/2022 14:42) 167/74 (12/20/2022 14:05)--> repeat manual 135/80 131/79 (12/18/2021 14:43) Pulse: 88 (10/28/2024 15:31) Respiration: 18 Temperature: 98.2 F [36.8 C] (10/28/2024 15:31) Patient Weight: BMI 33 10/28/2024 15:31 252 lb [114.31 kg] 09/10/2024 14:17 248.2 lb [112.58 kg] 05/06/2024 [...] the anterior aspect of lower legs bilaterally Few scabbed over areas without any discharge PT pulse diminished b/l onychomycosis, onycholysis, decreased sensation to MF using stick for assistance LABORATORY: 10/2024 reviewed labs with patient today WBC: 8.22 HGB: 14.5 HCT: 41.4 MCV: 88.5 PLT: 229 TSH (Access): 1.28 BLOOD Dec Aug 20 May 04 Aug 06 Reference 2023 2023 2023 2022 HGB-A1c 9.4 H 7.4 H 8.7 H 6.4 H % 4 - 5.6 GLUCOSE: 197 H UREA NITROGEN: 18 CREATININE-EGFR: 0.83 eGFR CKD-EPI 2020: >90 SODIUM: 137 POTASSIUM: 3.4 L --> CHLORIDE: 105 CO2: 24 PROTEIN,TOTAL: 6.3 ALBUMIN: 3.2 L ALKALINE PHOSPHATASE: 53 BILIRUBIN,TOT.: 0.8 SGOT: 10 SGPT: 9 CHOLESTEROL: 132 TRIGLYCERIDE: 161 H LDL CHOL: 71 CHOL/HDL RATIO: 4.6 HDL: 29 L --06/2024-- BNP: 73 CALCIUM: 9.1 MAGNESIUM: 1.4 L VIT. B12 (WROX): 677 VITAMIN D TOTAL: 27 IMAGING: #CTH 11/18/2017 c/o increasingly worse headache episodes Impression [...] systolic function without regional wall motion abnormalities. #07/2024 ROSE greater than 1 bilaterally #2023 Venous Doppler-has reflux in both saphenous veins tough they are not particularly enlarged ASSESSMENT/PLAN: Pt is 74 y/o M with PMH of obesity, HTN, HL, DM2, CAD, MDD, PTSD here today for follow-up #HTN - well controlled -c/w metoprolol 25 mg twice daily #HL: well controlled LDL 71,Target LDL-C<70 mg/dl. -c/w atorvastatin 40 mg Strongly encouraged to quit smoking. #DM2: uncontrolled A1c 9.4 - managed by non VA PCP and CPP metformin 1000 mg bid Increase glargine from 26 to 28 units BID (although recommended to take 28 units at last visit patient was taking 26 units twice daily until today) Increase bolus insulin from 12 to 14 units bid c/w semaglutide to 0.5 mg weekly, consider increasing to 1 mg and monitor for side effects, patient to address with CPP at next visit (GI symptoms nausea and vomiting while on 2mg) -Consider adding SGLT2i -feet: Extensive onycholysis and keratoderma will place new referral to podiatry -eye: 01/2024 diabetes without retinopathy or macular edema OU # Hypokalemia-increase dietary potassium, replete with potassium chloride 20mEq daily x4 #Arrhythmia: holter 05/2024 Frequent PVCs 7.9 %,Multiple episodes of Non-sustained VT ECHO 2023 LVEF 50% -patient denies presyncope, syncope, palpitations Stress test positive referred to cardiology see below #CAD: Extensive coronary calcification evident on LDCT, NMPI c/w ischemia inferior, inferolateral ischemia patient asymptomatic -Continue with BB, high intensity statin, aspirin -Referred to community care cardiology, pt instructed in case of any CP to go to ED #Active tobacoo user: not ready to quit-declines referral to SCP -Continue with lung cancer screening #PVI - chronic venous stasis skin changes, no edema today No open wounds-discharge from [facility] encouraged compression stocking/leg elevation Discussed regular moisturizer use, wash with Hibiclens -f/w Dr Wynn vascular surgery q6m, plan to obtain carotid US at next visit #Unsteady gait, history of falls: Etiology likely multifactorial in the setting peripheral neuropathy, lumbar spine DDD, cervical spondylosis per [place] PCP notes patient was seen by neurology recommended physical therapy but patient declined, did not find physical therapy helpful in the past -Fall precautions reviewed -He ambulates with a walking stick-declined referral to PT for gait evaluation and walker, a cane #Low back pain-lumbar DDD -Continue with gabapentin 300mg TID #Cervical spondylopathy: -S/p cervical spine surgery [address] Faye with improvement in symptoms #Polyneuropathy -On gabapentin #Chronic headaches: unremarkable CT head in 2018 -Doing well on topiramate 25 mg BID for headache prophylaxis #Vitamin B12 and vitamin D deficiency normalized on supplementation -c/w vitamin D 2000 units daily -c/w vitamin B supplementation #Intermittent diarrhea,?IBS, history of cholecystectomy, on metformin-symptoms much improved with loperamide 2 mg AC as needed #h/o Gastritis, chronic duodenitis: Asymptomatic EGD 08/2022 diffuse erythema and nodular appearing mucosa in the gastric body Few chronic appearing erosions in the prepyloric area as well as patchy erythema in the duodenal bulb with also 10 mm benign-appearing nodule in the apex of the bulb-biopsies benign, negative H. pylori and celiac disease-changes c/w chronic active duodenitis Follow up with GI [facility]-Dr. Candis Barros. #Actinic keratosis scalp -Scheduled with [facility] dermatology for 12/2024 #MDD, PTSD: Chronically depressed, denies SI today -f/w MELATONIN MIRTAZAPINE 30MG DULOXETINE 60mg TOPIRAMATE 25MG BID FOR ANXIETY Healthcare maintenance: --Lipids: LDL 71 (10/2024) --Diabetes: A1c 9.4 (10/2024) --Colon CA (45-75): will reschedule after cardiac evaluation 08/2022 EGD -gastritis and duodenitis in process of scheduling colonosocpy [facility] --GI (only EGD performed because patient did not complete colon prep) --Lung CA: due 01/2025 --PSA PSA 0.71 (04/2024) --AAA (smoker/65): 2018 no AAA --Influenza (yrly): 2023 --COVID: x3, 2023 --PCV20 2022 --PCV23: 2021 --RZV (>50yrs, x2): --TDAP: --Hep C screen: 2016 negative --HIV screen: --DEXA: --Advanced Directives: Comanagement - prefers to have most aspects of health maintenance, chronic condition(s) and medication management to non-VA PCP. Address at next visit: CAD, ?CTS right vs CS radiculopathy Return to clinic to see me in 4 months, sooner PRN. Virtual ( ), F2F ( x ) (x )fasting labs ordered prior to f/u ( )no labs needed (x )request records from outside providers cardiology prior to next visit (pt has appt end of november 2024) Follow Up Colonoscopy: Colonoscopy is due based [...] (local) and dispensed from another [place] or [place] facility (remote) as well as [...] provider. /caio/ CHRISTI ARIAS MD PHYSICIAN Signed: 10/30/2024 09:29 Receipt Acknowledged By: 11/01/2024 09:24 /caio/ SARANYA JACQUES 12/11/2024 ADDENDUM STATUS: COMPLETED Cardiology Note date 11/26/24 received and sent to scan. /caio/ Lisa Santana RN Registered Nurse (RN) Signed: 12/11/2024 16:12 CATIA ARIAS [facility] Oct 22, 2024 02:48 PM ADMINISTRATIVE NOT E: LOCAL TITLE: ADMINISTRATIVE NOTE STANDARD TITLE: ADMINISTRATIVE NOTE DATE OF NOTE: OCT 22, 2024@14:48 ENTRY DATE: OCT 22, 2024@14:48:15 AUTHOR: SARANYA EVANGELISTA EXP COSIGNER: URGENCY: STATUS: COMPLETED [facility] [address] [phone] * [phone] * [place], [place] [address] Date: OCT 22, 2024 re: This is a reminder of your upcoming PCP appt with CHRISTI ARIAS Appointment Date: Oct@15:00 Appointment Type: In-person visit (X)Fasting blood work NON fasting blood work LEFT MESSAGE ON VOICEMAIL TO CONFIRM APPT AND LABWORK Sincerely, Office Staff for: CHRISTI ARIAS Primary Care Provider [facility] [address] [address] T [phone] F [phone] Upcoming Appointments: 10/28/2024 15:00 CWM/SO/PACT 5 11/02/2024 12:00 CWM/SO/TELE/PHARM/PACT 2 11/30/2024 14:00 CWM/SO/MHC/OFRAT 11/30/2024 15:00 CWM/SO/MHC/WORKMAN 12/14/2024 11:25 COM CARE-CARDIOLOGY 12/21/2024 11:00 CWM/NO/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
--- OUTSIDE RECORDS SUMMARY | 2024-11-30 10:00 | XMS_ITS | Encounter Summary ---
Author Name [facility] [place] [facility] [place] Address [address] [place] [address] Care Team Providers Care School Social Worker Name Role Phone CHRISTI ARIAS Primary Care [...] Name Patient's Relationship to Policy [facility] ([facility] MEDICARE ADVANTAGE [facility] ([facility]) Nov 17, 2017 NONE [id number] DARRELL HUTCHINS PATIENT [facility] ([facility]) MEDICARE ADVANTAGE [facility] ([facility]) Nov 17, 2017 [id number] DARRELL HUTCHINS PATIENT MEDICAID MEDICAID [facility] Jan 15, 2017 MEDICAI D [id number] DARRELL HUTCHINS PATIENT Selected Encounter This section includes the information on record at [place] for the Encounter. Date/Time Encounter Type Encounter Description Reason Provider Source Nov 30, 2024 02:00 PM PSYTX W PT 45 MINUTES [facility] ICD-10-CM F32.9 Major depressive disorder, single episode, unspecified EMELY PERLA Johanna Encounter Template Text not used by [place] Assessments - Encounter Diagnoses This section includes the primary and secondary diagnoses documented for the Encounter. Date/Time Primary/Secondary Diagnosis Diagnosis Name Provider Source Nov 30, 2024 03:10 PM PRIMARY Major depressive disorder, single episode, unspecified OFEMELY MEJIA [facility] Plan of Treatment: Future Appointments (+ 6 months) and Future Tests (+/- 45 days) The Plan of Treatment section includes future care activities for the patient from [facility] [place] [facility]. This section includes future appointments and future orders which are active, pending or scheduled. Future Appointments This section includes appointments that were scheduled to occur 6 months from the date of the Encounter, up to a maximum of 20 appointments. The data comes from all [place] treatment facilities. Appointment Date/Time Appointment Type Appointme nt Facility Name Dec 07, 2024 10:30 AM AMBULATORY - MEDICINE [place] [facility] [place] [facility] Dec 17, 2024 12:00 PM AMBULATORY - MEDICINE [place] [facility] [place] [facility] Dec 21, 2024 11:00 AM AMBULATORY - MEDICINE [facility] [place] [facility] Dec 28, 2024 02:00 PM AMBULATORY - PSYCHIATRY [facility] Jan 06, 2025 01:00 PM AMBULATORY - PSYCHIATRY [facility] Jan 25, 2025 02:00 PM AMBULATORY - PSYCHIATRY [facility] Jan 25, 2025 03:00 PM AMBULATORY - PSYCHIATRY [facility] Feb 08, 2025 11:15 AM AMBULATORY - NONE [facility] [place] [facility] Feb 08, 2025 11:30 AM AMBULATORY - MEDICINE [facility] [place] [facility] Feb 10, 2025 01:00 PM AMBULATORY - PSYCHIATRY [facility] Feb 17, 2025 12:30 PM AMBULATORY - MEDICINE [place] [facility] [place] [facility] Mar 08, 2025 01:30 PM AMBULATORY - PSYCHIATRY [facility] Mar 08, 2025 02:00 PM AMBULATORY - PSYCHIATRY [facility] March 17, 2025 01:00 PM AMBULATORY - PSYCHIATRY [facility] March 18, 2025 11:30 AM AMBULATORY - MEDICINE [facility] April 04, 2025 12:30 PM AMBULATORY - MEDICINE [place] [facility] [place] [facility] April 12, 2025 02:00 PM AMBULATORY - REHAB MEDICIN E [facility] [place] [facility] April 12, 2025 02:15 PM AM[facility]ULATORY - MEDICINE [facility] April 15, 2025 01:30 PM AM[facility]UL[facility]ORY - MEDICINE [facility] Apr 20, 2025 02:30 PM AMBULATORY - PSYCHIATRY [facility] History: Smoking Status (Most current) and Tobacco Use (All prior to encounter date) This section includes the most current, and the historical, smoking and tobacco- related health factors from the [place] facility where the Encounter took place. Current Smoking Status This section includes the most current smoking, or tobacco-related health factor, from the [place] facility where the Encounter took place. Date/Time Current Smoking Status Comment Facil it Aug 24, 2021 11:30 AM VA-TOBACCO USER EVERY DAY [facility] Tobacco Use History This section includes a history of the smoking, or tobacco-related health factors, that were collected on or before the date of the Encounter. The data comes from the [place] facility where the Encounter took place. Date/Time Smoking Status/Tobacco Use Comment F acility Aug 24, 2021 11:30 AM VA-TOBACCO USE ADVICE [facility] Aug 24, 2021 11:30 AM VA-TOBACCO USE SHOP AND ALTERATION TAILOR NO [facility] Aug 24, 2021 11:30 AM VA-TOBACCO USE MED [facility] Aug 24, 2021 11:30 AM VA-TOBACCO USE WI 30 MIN OF WAKEUP [facility] Aug 24, 2021 11:30 AM VA-TOBACCO USER EVERY DAY [facility] 25, 2020 09:35 AM VA-TOBACCO DOESNT USE WI 30 MIN [facility] May 11, 2020 09:35 AM VA-TOBACCO USE 30 YEARS OR MORE [facility] May 11, 2020 09:35 AM VA-TOBACCO USE ADVICE [facility] May 11, 2020 09:35 AM VA-TOBACCO USE SHOP AND ALTERATION TAILOR NO [facility] May 11, 2020 09:35 AM VA-TOBACCO USE MED NO [facility] May 11, 2020 09:35 AM VA-TOBACCO USER EVERY DAY [facility] Jan 28, 2019 10:44 AM VA-TOBACCO DOESNT USE WI 30 MIN [place] [facility] Jan 28, 2019 10:44 AM VA-TOBACCO USE 5 TO 15 YEARS [facility] Jan 28, 2019 10:44 AM VA-TOBACCO USE ADVICE [facility] Jan 28, 2019 10:44 AM VA-TOBACCO USE SHOP AND ALTERATION TAILOR NO [facility] Jan 28, 2019 10:44 AM VA-TOBACCO USE MED NO [facility] Jan 28, 2019 10:44 AM VA-TOBACCO USER EVERY DAY [facility] Nov 06, 2017 09:56 AM CURRENT [facility] Nov 06, 2017 09:56 AM V1-PT NOT INTEREST ED IN QUIT TOBACCO USE [facility] Sep 15, 2017 02:08 PM CURRENT SMOKER reports smoking about 1/2 pack small cigars/day [facility] Encounter Notes: All associated encounter notes This section contains the clinical notes associated to the Encounter. Date/Time Encounter Note(s) Provider Source Nov 30, 2024 03:10 PM ADDENDUM: LOCAL TITLE: Addendum STANDARD TITLE: ADDENDUM DATE OF NOTE: NOV 30, 2024@15:10:20 ENTRY DATE: NOV 30, 2024@15:10:21 AUTHOR: EMELY PERLA EXP COSIGNER: URGENCY: STATUS: COMPLETED Please RTC /es/ Emely Perla PhD LP [facility] Coordinator and Staff Psychologist Signed: 11/30/2024 15:10 Receipt Acknowledged By: 11/30/2024 15:34 /es/ DANIEL RESENDEZ ADVANCED INVENTORY WORKER --- Original Document --- 11/30/24 PSYCHOLOGY NOTE: VISIT DURATION 50 minutes DIAGNOSES: Depression, PTSD chronic, tobacco use disorder [employer] STATEMENT OF GOALS/CONCERNS: Nat's main concern this session: I'm depressed. My health is crap and my legs don't work. I'm having bathroom issues. I wake up crying sometimes SESSION FOCUS: Nat states he needs a medical procedure in the next 3 months- he feels anxious about this procedure but appears relieved to have potential answers or reassurance about heart health. Today, is ruminative on past relationships with his father, mother, high school sweetheart and others. He feels isolated and lonely but struggles to find willingness to make a change. We linger in narratives of connection and brainstorm ways to feel more connected- phone calls, outreach to old friends. [place] is not able or willing at this time to make this change. Ambivalence is explored through Motivational interviewing. As always, sahil brightens significantly during social/interpersonal contact. By the end of this session, he is laughing and making jokes. would like to try to quit smoking. He will discuss smoking cessation aids with psychiatry and a consult will be entered for consultation with smoking cessation specialist. INTERVENTIONS: Psychotherapeutic Interventions: active listening, validation, Encouraging social connection consultation with psychiatry. consultation with smoking cessation specialist. Review of upcoming appointment Problem solving therapy Readiness for change: Nat is in the precontemplation/contemplation stage with respect to his goals. He identifies the problem but is not motivated to make changes, or feels incapable of making change. Nat has been educated about behavioral activation and does not feel motivated to make a change at this time. He benefits from and responds to validation, space to express emotion, and social connection created by therapy. Data Center Technician's treatment plan is to increase social engagement and use DC to increase motivation to work on anger and/or behavioral activation. Data Center Technician's strong recommendation is for Nat to attend anger management and peer support group, EBP for PTSD, or PTSD W9 program. Nat requests monthly supportive therapy check-ins. More frequent sessions are recommended to treat depression using CBT/behavioral activation, but given Nat's stated level of motivation and desire for supportive care, monthly sessions are appropriate. ASSESSMENT: BRIEF ASSESSMENT OF MENTAL STATUS: 1. Appearance (grooming, attire, apparent age) within normal limits: Yes 2. Thought content was organized and goal directed: No Tangential 3. Speech was coherent and unimpaired: Yes 4. Affect was appropriate and unremarkable: Yes Full 5. Demeanor was calm, with no signs of agitation or restlessness: Yes 6. Sleep was largely unimpaired and restful: No Very disrupted- unable to fall asleep, naps during day. 7. No evidence of psychosis (hallucinations or delusions): No evidence 8. Mood was normal: No dysthymic Other Observations: RISK ASSESSMENT: Risk: Nat's acute risk for suicide remains low to intermediate. He remains future focused, feels responsibility for his son, and continues to engage in healthcare. His chronic health conditions, trauma related symptoms, and hopelessness/helplessness increase chronic risk to moderate/intermediate risk. He has vague ideas about how we could harm himself but no specific plan. In the past, he has stated, 'I dont think I would ever actually do anything or go through with it'. Nat does not use intoxicating substances which would increase risk. He has limited protective factors. He denies having a weapon 'aside from kitchen knives'. In the past, he had a thought of riding off a ban with his motorcycle, but does not currently have the ability to ride his motorcycle. When queried about a specific plan, he references that he had this plan in the past but the plan is no longer accessible to him, and he has not thought of another plan. PLAN FOR FOLLOW-UP: Next session planned for: RTC 1 month Diagnoses: Depression ([facility] [id number]) - Major depressive disorder, single episode, unspecified (ICD-10-CM F32.9) (Primary) Procedures: Psychotherapy 38-52 min - Synchronous Telemedicine Service /caio/ Emely Perla PhD LP [facility] Coordinator and Staff Psychologist Signed: 11/30/2024 15:10 EMELY PERLA [facility] Nov 30, 2024 03:00 PM PSYCHOLOGY NOTE: LOCAL TITLE: PSYCHOLOGY NOTE STANDARD TITLE: PSYCHOLOGY NOTE DATE OF NOTE: NOV 30, 2024@15:00 ENTRY DATE: NOV 30, 2024@15:00:14 AUTHOR: EMELY PERLA EXP COSIGNER: URGENCY: STATUS: COMPLETED PSYCHOLOGY NOTE Has ADDENDA VISIT DURATION 50 minutes DIAGNOSES: Depression, PTSD chronic, tobacco use disorder [employer] STATEMENT OF GOALS/CONCERNS: Nat's main concern this session: I'm depressed. My health is crap and my legs don't work. I'm having bathroom issues. I wake up crying sometimes SESSION FOCUS: Nat states he needs a medical procedure in the next 3 months- he feels anxious about this procedure but appears relieved to have potential answers or reassurance about heart health. Today, is ruminative on past relationships with his father, mother, high school sweetheart and others. He feels isolated and lonely but struggles to find willingness to make a change. We linger in narratives of connection and brainstorm ways to feel more connected- phone calls, outreach to old friends. [place] is not able or willing at this time to make this change. Ambivalence is explored through Motivational interviewing. As always, sahil brightens significantly during social/interpersonal contact. By the end of this session, he is laughing and making jokes. would like to try to quit smoking. He will discuss smoking cessation aids with psychiatry and a consult will be entered for consultation with smoking cessation specialist. INTERVENTIONS: Psychotherapeutic Interventions: active listening, validation, Encouraging social connection consultation with psychiatry. consultation with smoking cessation specialist. Review of upcoming appointment Problem solving therapy Readiness for change: Nat is in the precontemplation/contemplation stage with respect to his goals. He identifies the problem but is not motivated to make changes, or feels incapable of making change. Nat has been educated about behavioral activation and does not feel motivated to make a change at this time. He benefits from and responds to validation, space to express emotion, and social connection created by therapy. Data Center Technician's treatment plan is to increase social engagement and use DC to increase motivation to work on anger and/or behavioral activation. Data Center Technician's strong recommendation is for Nat to attend anger management and peer support group, EBP for PTSD, or PTSD W9 program. Nat requests monthly supportive therapy check-ins. More frequent sessions are recommended to treat depression using CBT/behavioral activation, but given Nat's stated level of motivation and desire for supportive care, monthly sessions are appropriate. ASSESSMENT: BRIEF ASSESSMENT OF MENTAL STATUS: 1. Appearance (grooming, attire, apparent age) within normal limits: Yes 2. Thought content was organized and goal directed: No Tangential 3. Speech was coherent and unimpaired: Yes 4. Affect was appropriate and unremarkable: Yes Full 5. Demeanor was calm, with no signs of agitation or restlessness: Yes 6. Sleep was largely unimpaired and restful: No Very disrupted- unable to fall asleep, naps during day. 7. No evidence of psychosis (hallucinations or delusions): No evidence 8. Mood was normal: No dysthymic Other Observations: RISK ASSESSMENT: Risk: Nat's acute risk for suicide remains low to intermediate. He remains future focused, feels responsibility for his son, and continues to engage in healthcare. His chronic health conditions, trauma related symptoms, and hopelessness/helplessness increase chronic risk to moderate/intermediate risk. He has vague ideas about how we could harm himself but no specific plan. In the past, he has stated, 'I dont think I would ever actually do anything or go through with it'. Nat does not use intoxicating substances which would increase risk. He has limited protective factors. He denies having a weapon 'aside from kitchen knives'. In the past, he had a thought of riding off a ban with his motorcycle, but does not currently have the ability to ride his motorcycle. When queried about a specific plan, he references that he had this plan in the past but the plan is no longer accessible to him, and he has not thought of another plan. PLAN FOR FOLLOW-UP: Next session planned for: RTC 1 month Diagnoses: Depression ([facility] [id number]) - Major depressive disorder, single episode, unspecified (ICD-10-CM F32.9) (Primary) Procedures: Psychotherapy 38-52 min - Synchronous Telemedicine Service /carmen Perla PhD, LP [facility] Coordinator and Staff Psychologist Signed: 11/30/2024 15:10 11/30/2024 ADDENDUM STATUS: COMPLETED Please RTC /caio/ Emely Perla PhD, LP [facility] Coordinator and Staff Psychologist Signed: 11/30/2024 15:10 Receipt Acknowledged By: * AWAITING SIGNATURE * DANIEL RESENDEZ [facility] [place]
--- OUTSIDE RECORDS SUMMARY | 2024-11-30 11:00 | XMS_ITS | Encounter Summary ---
Author Name [facility] Organization [facility] Address [address] [place] [id number] Care Team Providers Care Water Trainer Name Role Phone CHRISTI ARIAS Primary Care [...] Name Patient's Relationship to Policy [facility] ([facility] MEDICARE ADVANTAGE [facility] ([facility]) Nov 17, 2017 NONE [id number] DARRELL HUTCHINS PATIENT [facility] ([facility]) MEDICARE ADVANTAGE [facility] ([facility]) Nov 17, 2017 [id number] DARRELL HUTCHINS PATIENT MEDICAID MEDICAID [facility] Jan 15, 2017 MEDICAI D [id number] DARRELL HUTCHINS PATIENT Selected Encounter This section includes the information on record at [place] for the Encounter. Date/Time Encounter Type Encounter Description Reason Provider Source Nov 30, 2024 03:00 PM OFFICE O/P EST MOD 30 MIN [facility] - IND ICD-10-CM F32.9 Major depressive disorder, single episode, unspecified EUGENE WORKMAN [facility] Encounter Template Text not used by [place] Assessments - Encounter Diagnoses This section includes the primary and secondary diagnoses documented for the Encounter. Date/Time Primary/Secondary Diagnosis Diagnosis Name Provider Source Nov 30, 2024 06:28 PM PRIMARY Major depressive disorder, single episode, unspecified DENISSE WORKMAN [place] Plan of Treatment: Future Appointments (+ 6 months) and Future Tests (+/- 45 days) The Plan of Treatment section includes future care activities for the patient [facility] This section includes future appointments and future orders which are active, pending or scheduled. Future Appointments This section includes appointments that were scheduled to occur 6 months from the date of the Encounter, up to a maximum of 20 appointments. The data comes from all [place] treatment facilities. Appointment Date/Time Appointment Type Appointme nt Facility Name Dec 07, 2024 10:30 AM AMBULATORY - MEDICINE [facility] [place] [facility] Dec 17, 2024 12:00 PM AMBULATORY - MEDICINE [facility] [place] [facility] Dec 21, 2024 11:00 AM AMBULATORY [facility] MEDICINE [facility] [place] [facility] Dec 28, 2024 02:00 PM AMBULATORY - PSYCHIATRY [facility] Jan 06, 2025 01:00 PM AMBULATORY - PSYCHIATRY [facility] Jan 25, 2025 02:00 PM AMBULATORY - PSYCHIATRY [facility] Jan 25, 2025 03:00 PM AMBULATORY - PSYCHIATRY [facility] Feb 08, 2025 11:15 AM AMBULATORY - NONE [facility] [place] [facility] Feb 08, 2025 11:30 AM AMBULATORY - MEDICINE [facility] [place] [facility] Feb 10, 2025 01:00 PM AMBULATORY - PSYCHIATRY [facility] Feb 17, 2025 12:30 PM AMBULATORY - MEDICINE [facility] [place] [facility] Mar 08, 2025 01:30 PM AMBULATORY - PSYCHIATRY [facility] Mar 08, 2025 02:00 PM AMBULATORY - PSYCHIATRY [facility] March 17, 2025 01:00 PM AMBULATORY - PSYCHIATRY [facility] March 18, 2025 11:30 AM AMBULATORY - MEDICINE [facility] April 04, 2025 12:30 PM AMBULATORY - MEDICINE [facility] [place] [facility] April 12, 2025 02:00 PM AMBULATORY - REHAB MEDICIN [facility] [place] [facility] April 12, 2025 02:15 PM [facility]IC[facility] April 15, 2025 01:30 PM [facility] Apr 20, 2025 02:30 PM AMBULATORY - PSYCHIATRY [facility] Social History: Smoking Status (Most current) and Tobacco Use (All prior to encounter date) This section includes the most current, and the historical, smoking and tobacco- related health factors from the [place] facility where the Encounter took place. Current Smoking Status This section includes the most current smoking, or tobacco-related health factor, from the [place] facility where the Encounter took place. Date/Time Current Smoking Status Comment Facil it Aug 24, 2021 11:30 AM VA-TOBACCO USER EVERY DAY [place] Tobacco Use History This section includes a history of the smoking, or tobacco-related health factors, that were collected on or before the date of the Encounter. The data comes from the [place] facility where the Encounter took place. Date/Time Smoking Status/Tobacco Use Comment F acility Aug 24, 2021 11:30 AM VA-TOBACCO USE ADVICE [place] Aug 24, 2021 11:30 AM VA-TOBACCO USE CONTRACT ENGINEER NO [place] Aug 24, 2021 11:30 AM VA-TOBACCO USE MED NO [place] Aug 24, 2021 11:30 AM VA-TOBACCO USE WI 30 MIN OF WAKEUP [place] Aug 24, 2021 11:30 AM VA-TOBACCO USER EVERY DAY [place] May 11, 2020 09:35 AM VA-TOBACCO DOESNT USE WI 30 MIN [place] May 11, 2020 09:35 AM VA-TOBACCO USE 30 YEARS OR MORE [place] May 11, 2020 09:35 AM VA-TOBACCO USE ADVICE [place] May 11, 2020 09:35 AM VA-TOBACCO USE CONTRACT ENGINEER NO [place] May 11, 2020 09:35 AM VA-TOBACCO USE MED NO [place] May 11, 2020 09:35 AM VA-TOBACCO USER EVERY DAY [place] Jan 28, 2019 10:44 AM VA-TOBACCO DOESNT USE WI 30 MIN [place] Jan 28, 2019 10:44 AM VA-TOBACCO USE 5 TO 15 YEARS [place] Jan 28, 2019 10:44 AM VA-TOBACCO USE ADVICE [place] Jan 28, 2019 10:44 AM VA-TOBACCO USE CONTRACT ENGINEER NO [place] Jan 28, 2019 10:44 AM VA-TOBACCO USE MED NO [place] Jan 28, 2019 10:44 AM VA-TOBACCO USER EVERY DAY [place] Nov 06, 2017 09:56 AM [facility] Nov 06, 2017 09:56 AM V1-PT NOT INTEREST ED IN QUIT TOBACCO USE [place] Sep 15, 2017 02:08 PM CURRENT SMOKER reports smoking about 1/2 pack small cigars/day [place] Encounter Notes: All associated encounter notes This section contains the clinical notes associated to the Encounter. Date/Time Encounter Note(s) Provider Source Nov 30, 2024 03:08 PM PSYCHIATRY NOTE: LOCAL TITLE: PSYCHIATRY NOTE STANDARD TITLE: PSYCHIATRY NOTE DATE OF NOTE: NOV 30, 2024@15:08 ENTRY DATE: NOV 30, 2024@15:08:45 AUTHOR: DENISSE WORKMAN EXP COSIGNER: URGENCY: STATUS: COMPLETED PSYCHIATRY NOTE Has ADDENDA 30 min for encounter, including chart review, interview, charting chart reviewed Patient stable. Good mood. Denies recent depression. PTSD symptoms, irritability improved. Affect bright, appropriate. The patient denies SI and violent ideation. Thoughts are well organized. No paranoid or delusional content presented. Denies hallucinations. Speech normal. Cognitive exam grossly unchanged. Has interests, for example reading, he again becomes animated as he discusses his reading, and enjoys his building with Legos. As with each interview, the patient clearly enjoys talking, telling stories. He again has good sense of humor. He again likes to talk about current events. Good hygiene. No slowing noted. 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 See C-SSRS 09/2024. The patient denies suicidal and violent ideation (but has past history of intermittent suicidal ideation, without plan or intent). The pt is probably low risk for suicide or violence, but the [email or web address] Crisis [facility] information and number were reviewed [...] protective factor. I reviewed with Dr. Perla again today and she agreed with above reasoning continue [...] Over time we have change Zoloft to Cymbalta. We also discussed considering tapering Remeron, depending upon how patient does with Cymbalta trial. But no change in Remeron today because pt doing well. Also see below for more discussion. CONTINUE [...] with psychiatric medication. Return to clinic about 2 mo or sooner through open access if [...] this [facility] (local) and dispensed from another [place] or [facility] facility (remote) as well as inpatient orders [...] whether with a VA or non-VA provider. Alcohol Use Screen (AUDIT-C): Alcohol Screen: SCREEN FOR ALCOHOL (AUDIT-C) An alcohol screening test (AUDIT-C) was negative (score=0). 1. How often did you have a drink containing alcohol in the past year? Consider a drink to be a 12 ounce can or bottle of regular beer, 8 ounces of malt liquor, a 5 ounce glass of table wine, or a 1.5 ounce shot of liquor (like scotch, gin, or vodka). Never 2. How many drinks containing alcohol did you have on a typical day when you were drinking in the past year? Response not required due to responses to other questions. 3. How often did you have six or more drinks on one occasion in the past year? Response not required due to responses to other questions. /caio/ DENISSE WORKMAN MD STAFF PSYCHIATRIST Signed: 11/30/2024 18:28 11/30/2024 ADDENDUM STATUS: COMPLETED note that pt has meals on wheels -- wh he likes; Spoke previously with Audrey MCKOY [phone]. Went over 's psych medications. She had stated pt compliant /caio/ DENISSE WORKMAN MD STAFF PSYCHIATRIST Signed: 11/30/2024 18:32 DENISSE WORKMAN
--- OUTSIDE RECORDS SUMMARY | 2024-12-21 07:00 | XMS_ITS ---
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 Name Role Phone CHRISTI ARIAS Primary Care [...] Name Patient's Relationship to Policy [facility] ([facility]) MEDICARE ADVANTAGE [facility] ([facility]) Nov 17, 2017 NONE [id number] DARRELL HUTCHINS PATIENT [facility]ALTH [facility] (WNR) MEDICARE ADVANTAGE [facility] (R) Nov 17, 2017 [id number] DARRELL HUTCHINS PATIENT MEDICAID MEDICAID [facility] Jan 15, 2017 MEDICAI D [id number] DARRELL HUTCHINS PATIENT Selected Encounter This section includes the information on record at [place] for the Encounter. Date/Time Encounter Type Encounter Description Reason Provider Source Dec 21, 2024 11:00 AM OFFICE O/P [place] 60 MIN DERMATOLOGY ICD-10-CM L57.0 Actinic keratosis JEETTHOMAS NAQVIRashida JEAN BAPTISTE IHJohanna Encounter Template Text not used by [place] Assessments - Encounter Diagnoses This section includes the primary and secondary diagnoses documented for the Encounter. Date/Time Primary/Secondary Diagnosis Diagnosis Name Provider Source Dec 21, 2024 01:58 PM PRIMARY Actinic keratosis SARA ROBBINS [facility] [facility] Dec 21, 2024 01:58 PM SECONDARY [facility]osis [facility] [facility] Dec 21, 2024 01:58 PM SECONDARY Irritant contact dermatitis due to other agents [facility] [place] [facility] Dec 21, 2024 01:58 PM SECONDARY Other melanin hyperpigmentation [facility] [place] [facility] Dec 21, 2024 01:58 PM SECONDARY Other seborrheic keratosis [facility] [place] [facility] Dec 21, 2024 01:58 PM SECONDARY Venous insufficiency (chronic) (peripheral) [facility] [place] [facility] Dec 21, 2024 01:58 PM SECONDARY Xerosis cutis [facility] [place] [facility] Plan of Treatment: Future Appointments (+ 6 months) and Future Tests (+/- 45 days) The Plan of Treatment section includes future care activities for the [facility] This section includes future appointments and future orders which are active, pending or scheduled. Future Appointments This section includes appointments that were scheduled to occur 6 months from the date of the Encounter, up to a maximum of 20 appointments. The data comes from all [place] treatment [facility]. Appointment Date/Time Appointment Type Appointme nt Facility Name Dec 28, 2024 02:00 PM AMBULATORY - PSYCHIATRY [facility] Jan 06, 2025 01:00 PM AMBULATORY - PSYCHIATRY [facility] Jan 25, 2025 02:00 PM AMBULATORY - PSYCHIATRY [facility] Jan 25, 2025 03:00 PM AMBULATORY - PSYCHIATRY [facility] Feb 08, 2025 11:15 AM AMBULATORY - NONE [facility] [place] [facility] Feb 08, 2025 11:30 AM AM[facility]ULATORY [facility]ICINE [facility] [place] [facility] Feb 10, 2025 01:00 PM AMBULATORY - PSYCHIATRY [facility] Feb 17, 2025 12:30 PM AMBULATORY - MEDICINE [facility] [place] [facility] Mar 08, 2025 01:30 PM AMBULATORY - PSYCHIATRY [facility] Mar 08, 2025 02:00 PM AMBULATORY - PSYCHIATRY [facility] March 17, 2025 01:00 PM AMBULATORY - PSYCHIATRY [facility] March 18, 2025 11:30 AM AMBULATORY - MEDICINE [facility] April 04, 2025 12:30 PM AMBULATORY - MEDICINE [facility] [place] [facility] April 12, 2025 02:00 PM AMBULATORY - REHAB MEDICIN [facility] [facility] April 12, 2025 02:15 PM AMBULATORY - MEDICINE [facility] April 15, 2025 01:30 PM AMBULATORY - MEDICINE [facility] Apr 20, 2025 02:30 PM AMBULATORY - PSYCHIATRY [facility] May 02, 2025 01:00 PM AMBULATORY - MEDICINE [facility] [place] [facility] Jun 06, 2025 02:00 PM AMBULATORY - MEDICINE [facility] Jun 13, 2025 01:00 PM AMBULATORY - MEDICINE [facility] Social History: Smoking Status (Most current) and [...] Date/Time Current Smoking Status Comment Facil ity May 06, 2024 10:30 AM [facility] Tobacco Use History This section includes a history of the smoking, or tobacco-related health factors, that were collected on or before the date of the Encounter. The data comes from the [place] facility where the Encounter took place. 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 [facility] [place] [facility] May 06, 2024 10:30 AM VA-TOBACCO USE MED NO [facility] [place] [facility] May 06, 2024 10:30 AM VA-TOBACCO USER EVERY DAY [facility] [place] [facility] Dec 20, 2022 02:06 PM VA-TOBACCO USE 5 TO 15 YEARS [facility] [facility] Dec 20, 2022 02:06 PM VA-TOBACCO USE ADVICE [facility] [facility] Dec 20, 2022 02:06 PM VA-TOBACCO USE NEWS PHOTOGRAPHER NO [facility] [place] [facility] Dec 20, 2022 02:06 PM VA-TOBACCO USE MED NO [facility] [place] [facility] Dec 20, 2022 02:06 PM VA-TOBACCO USE WI 30 MIN OF WAKEUP [facility] [place] [facility] Dec 20, 2022 02:06 PM VA-TOBACCO USER EVERY DAY [facility] [place] [facility] Encounter Notes: All associated encounter notes This section contains the clinical notes associated to the Encounter. Date/Time Encounter Note(s) Provider Source Dec 21, 2024 11:21 AM DERMATOLOGY CONSULT: LOCAL TITLE: CONSULT REPORT/DERMATOLOGY STANDARD TITLE: DERMATOLOGY CONSULT DATE OF NOTE: DEC 21, 2024@11:21 ENTRY DATE: DEC 21, 2024@11:21:39 AUTHOR: LIBAN ROBBINS EXP COSIGNER: URGENCY: STATUS: COMPLETED DEC 21, 2024 LISSETTE HUTCHINS Dec 74 PATIENT PHONE - Patient here for: NEW CONSULT CHIEF COMPLAINT: 'Actinic Keratosis on scalp' per consult HPI: [place] reports to have a few 'bumps' on scalp. Also with chronic (>2 yrs) of bilateral lower leg thickening skin and redness. He reports to have recently 'bumped' his right lower leg on a table in his home, causing a shallow wound. Denies fevers, chills. Reports to have 'pretty good' sensation in his legs, denies pain. [place] denies any other new/changing/bleeding/non- healing lesions. Reviewed records in [facility] (all available). REVIEW OF SYSTEMS: Constitutional-neg Skin/Hair/Nails-see HPI DermHx: Denies h/o MM or NMSC Family Hx: Denies known h/o MM PastMedHx: Reviewed. IDDM. History of Sun Exposure/Sunburns: Denies h/o blistering bustos or tanning bed use. Active Outpatient Medications (including Supplies): Active Outpatient Medications Status 1) ALCOHOL PREP PAD USE 1 PAD TOPICALLY THREE TIMES A DAY TO ACTIVE CLEAN SKIN FOR INJECTION ETC 2) AMMONIUM LACTATE 12% LOTION APPLY SMALL AMOUNT TOPICALLY ACTIVE ONCE DAILY FOR DRY IRRITATED SKIN Indication: FOR DRY SKIN 3) ATORVASTATIN CALCIUM 80MG TAB TAKE ONE-HALF TABLET BY MOUTH ACTIVE ONCE DAILY Indication: FOR HIGH CHOLESTEROL 4) DULOXETINE HCL 60MG EC CAP TAKE ONE CAPSULE BY MOUTH ONCE ACTIVE DAILY Indication: DEPRESSION 5) GLUCOSE 4GM CHEW TAB CHEW THREE TO FOUR TABLETS BY MOUTH ACTIVE NEEDED TO TREAT LOW BLOOD SUGAR BELOW 70 Indication: FOR LOW BLOOD SUGAR 6) GLUCOSE SENSOR DEXCOM G7 USE 1 SENSOR DIRECTED EVERY 10 ACTIVE DAYS 7) INSULIN,ASPART(EQV-NOVLG)1 00UN/ML FLXPEN INJECT 20 UNITS ACTIVE SUBCUTANEOUSLY TWICE DAILY INJECT 15 MINUTES BEFORE MEALS Indication: FOR DIABETES 8) INSULIN,GLARGINE 100 UNT/ML 3ML SOLOSTAR INJECT 30 UNITS ACTIVE SUBCUTANEOUSLY TWICE DAILY Indication: FOR DIABETES 9) LOPERAMIDE HCL 2MG CAP TAKE ONE CAPSULE BY MOUTH THREE TIMES ACTIVE DAILY WITH MEALS Indication: FOR DIARRHEA 10) MELATONIN 1MG CAP/TAB TAKE SIX CAPSULE/TABLET BY MOUTH AT ACTIVE BEDTIME NEEDED INSOMNIA Indication: FOR INSOMNIA 11) MIRTAZAPINE 30MG TAB TAKE ONE TABLET BY MOUTH AT BEDTIME FOR ACTIVE DEPRESSION/MOOD 12) MUPIROCIN 2% OINT APPLY THIN LAYER TOPICALLY EVERY OTHER ACTIVE DAYS Indication: FOR SKIN INFECTION 13) NEEDLE,PEN 31G,5MM USE 1 NEEDLE SUBCUTANEOUSLY FOUR TIMES A ACTIVE DAY FOR USE WITH PEN DEVICE 14) NICOTINE 14MG/24HR PATCH APPLY 1 PATCH TOPICALLY ONCE DAILY ACTIVE (REMOVE OLD PATCH BEFORE APPLYING NEW PATCH) 15) NICOTINE 2MG GUM CHEW 1 PIECE BY MOUTH EVERY 2 HOURS ACTIVE NEEDED FOR SMOKING CESSATION 16) SEMAGLUTIDE 0.25MG/0.375ML INJ PEN 3ML INJECT 0.5MG ACTIVE SUBCUTANEOUSLY ONCE A WEEK Indication: FOR TYPE 2 DIABETES MELLITUS 17) TOPIRAMATE 25MG TAB TAKE ONE TABLET BY MOUTH TWICE DAILY ACTIVE NEEDED FOR ANXIETY/HEADACHE (OFF LABEL FOR ANXIETY) Active Non-VA Medications Status 1) Non-VA ASPIRIN 81MG EC TAB 81MG BY MOUTH EVERY DAY ACTIVE 2) Non-VA CYANOCOBALAMIN TAB BY MOUTH ACTIVE 3) Non-VA GABAPENTIN 300MG CAP 300MG BY MOUTH THREE TIMES A DAY ACTIVE 4) Non-VA METFORMIN HCL 1000MG TAB 1000MG BY MOUTH TWICE DAILY ACTIVE 5) Non-VA METOPROLOL TARTRATE 25MG TAB 25MG BY MOUTH EVERY DAY ACTIVE 6) Non-VA VITAMIN B COMPLEX CAP,ORAL BY MOUTH ACTIVE 7) Non-VA VITAMIN D3 (CHOLECALCIFEROL) TAB BY MOUTH ACTIVE 24 Total Medications PHYSICAL EXAM: Sanders Skintype II General-AxOx3, NAD, pleasant, breathing unlabored, speech clear Cutaneous examination, as permitted by the patient, including scalp, face, eyes, ears, neck, arms, hands, fingers, legs, feet, toes Pertinent findings per below: -Multiple thin erythematous gritty papules noted to scalp -Multiple scattered stuck-on appearing waxy hummel and brown papules and plaques with noted milia-like cysts, comedo-like openings and fissures/ridges on dermoscopy. -Scattered uniformly pigmented light hummel and brown jagged macules in sun distributed areas. -Generalized xerosis -Fine and thick flaky adherent scale with white detached perimeter and brown center noted to bilateral legs, ankles, feet -R lower leg with 2-3 shallow open abrasions/skin tears on a background of erythema, warm to touch, no exudate or pain -all toenails yellow and thickened with keratotic debris Diagnosis/Plan: #Actinic Keratosis: - educated on relationship to squamous cell carcinoma. -Treatment options discussed. -Liquid nitrogen cryotherapy performed as a destructive method. -Verbal consent given. -Liquid nitrogen (2 cycles x 5-8sec) x #6 lesions performed. -Side effects including but not limited to redness, crusting, swelling, blistering, hypopigmentation and scarring discussed. -Photoprotection discussed. 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 -Return precautions dicussed. #Stasis Dermatitis #Venous Insufficiency -Currently flaring. -Discussed etiology of SD. Advised to maintain mobility and ambulation for good circulation, raise legs when possible, and use support socks. He reports intolerance to compression stockings. -Discussed Flexitough Plus Advanced Pneumatic Compression System and he agrees to try. Prosthetics Consult placed. #Onychomycosis #Venous Insufficiency #Peripheral Arterial Disease #Toenail abnormalities #Diabetes -PODIATRY consult placed #Ichthyosis vulgaris -Discussed chronic recurrent skin condition -Discussed measures to thin out scale and moisturize skin. -Advised to take quick, lukewarm showers, and use emollients liberally after bathing and throughout the day. -Urea 10% lotion prescribed as humectant (also available as a 20-40% cream for BID use). Advised NOT for use on open areas of skin. -Prior use of topical ammonium lactate 12% - reports it to be ineffective). #Seborrheic Keratoses: -The was educated regarding the benign nature, but to return with any growth, change or symptoms in area. #Solar Lentigines -The was educated regarding the benign nature and relation to chronic sun exposure, but to return with any growth, change or symptoms in area. -Photoprotection discussed. #Xerosis -Advised liberal emollients RTC 3-6m, sooner PRN * educated to RTC noble if any new, changing, non-healing, or symptomatic lesions. * Education on sun protection and avoidance strategies was provided. * Encouraged monthly skin self exams for lesions changing in size, shape, or color, or non-healing lesions * Differential diagnosis, prescription options and risks/benefits were discussed with the patient, who consented to treatment plan. * consented to photography for documentation if indicated. * A dermatoscope was used during the exam. * NUB = Neoplasm of Uncertain Behavior of Skin * NMSC = Nonmelanoma Skin Cancer * AK = Actinic Keratosis ------TIME ESTIMATION To include but not limied to: -Review of medical records -Time spent with patient including obtaining history, physical exam, shared decision making, procedures and counseling -Post visit documentation; HPI and physical exam findings, clinical researching, medical decision making, medication and lab ordering Total estimated time = 50 min ------- Medication Reconciliation: Outpatient: Has the patient been taking medications as documented in the EMLR? YES: The patient has been taking medications as documented in the EMLR. Essential Medication List for Review used to complete this medication reconciliation. INCLUDED IN THIS LIST: Alphabetical list of active outpatient prescriptions dispensed from this [facility] (local) and dispensed from another [place] or [facility] facility (remote) as well as [...] whether with a VA or non-VA provider. JLV Link Data on this list may not be complete. Please check JLV. Allergies/ADRs (Tool #5) FACILITY ALLERGY/ADR -------- No Remote Allergy/ADR Data available for this patient [facility] [place] [facility] No Known Allergies Med Recon NoGlossary (Tool #1) INCLUDED IN THIS LIST: Alphabetical list of active outpatient prescriptions dispensed from this PA (local) and dispensed from another PA or [facility] facility (remote) as well as inpatient orders (local pending and active), local clinic medications, locally documented non-VA medications, and local prescriptions that have or been discontinued in the past 90 days. Non-VA Meds Last Documented On: Oct 08, 2022 NOTE The display of VA prescriptions dispensed from another PA or [facility] facility (remote) is limited to active outpatient prescription entries matched to National Drug File at the originating site and may not include some items such as investigational drugs, compounds, etc. NOT INCLUDED IN THIS LIST: Medications self-entered by the patient into personal health records (i.e. [employer]) are NOT included in this list. Non-VA medications documented outside this PA, remote inpatient orders (regardless of status) and remote clinic medications are NOT included in this list. The patient and provider must always discuss medications the patient is taking, regardless of where the medication was dispensed or obtained. OUTPT AMMONIUM LACTATE 12% LOTION (Status = Active) APPLY SMALL AMOUNT TOPICALLY ONCE DAILY FOR DRY SKIN FOR DRY IRRITATED SKIN Rx# [id number] Last Released: 06/09/24 Qty/Days Supply: 240/30 Rx Expiration Date: 06/10/25 Refills Remainin Indication: FOR DRY SKIN Non-VA ASPIRIN 81MG EC TAB TAKE ONE TABLET BY MOUTH EVERY DAY Patient wants to buy from Non-VA pharmacy. Medication prescribed by Non-VA provider. OUTPT ATORVASTATIN CALCIUM 80MG TAB (Status = Active) TAKE ONE-HALF TABLET BY MOUTH ONCE DAILY FOR HIGH CHOLESTEROL Rx# [id number] Last Released: 11/23/24 Qty/Days Supply: 45 Rx Expiration Date: 09/11/25 Refills Remainin Indication: FOR HIGH CHOLESTEROL OUTPT CEFADROXIL 500MG CAP (Status = Pending) TAKE 1 CAPSULE BY MOUTH TWICE DAILY Login Date: 12/21/24 Qty/Days Supply: 30/05 Refills Ordered: 0 Non-VA CYANOCOBALAMIN TAB TAKE BY MOUTH Medication prescribed by Non-VA provider. OUTPT DULOXETINE HCL 60MG EC CAP (Status = Discontinued) TAKE ONE CAPSULE BY MOUTH ONCE DAILY DEPRESSION Rx# [id number] Last Released: 10/07/24 Qty/Days Supply: Rx Expiration Date: 07/28/25 Refills Remainin Indication: DEPRESSION OUTPT DULOXETINE HCL 60MG EC CAP (Status = Active) TAKE ONE CAPSULE BY MOUTH ONCE DAILY DEPRESSION Rx# [id number] Last Released: 12/02/24 Qty/Days Supply: Rx Expiration Date: 10/07/25 Refills Remainin Indication: DEPRESSION Non-VA GABAPENTIN 300MG CAP TAKE 1 CAPSULE BY MOUTH THREE TIMES A DAY Patient wants to buy from Non-VA pharmacy. Medication prescribed by Non-VA provider. OUTPT GLUCOSE 4GM CHEW TAB (Status = Active) CHEW THREE TO FOUR TABLETS BY MOUTH NEEDED TO TREAT LOW BLOOD SUGAR BELOW 70 Rx# [id number] Last Released: 07/30/24 Qty/Days Supply: Rx Expiration Date: 07/31/25 Refills Remainin Indication: FOR LOW BLOOD SUGAR OUTPT INSULIN,ASPART(EQV-NOVLG)1 00UN/ML FLXPEN (Status = Discontinued) INJECT 14 UNITS SUBCUTANEOUSLY TWICE DAILY 15 MINUTES BEFORE MEALS Rx# [id number] Last Released: 06/25/24 Qty/Days Supply: Rx Expiration Date: 10/07/24 Refills Remainin Indication: FOR DIABETES OUTPT INSULIN,ASPART(EQV-NOVLG)1 00UN/ML FLXPEN (Status = Discontinued) INJECT 14 UNITS SUBCUTANEOUSLY TWICE DAILY 15 MINUTES BEFORE MEALS Rx# [id number] Last Released: 10/06/24 Qty/Days Supply: Rx Expiration Date: 10/07/25 Refills Remainin Indication: FOR DIABETES OUTPT INSULIN,ASPART(EQV-NOVLG)1 00UN/ML FLXPEN (Status = Active) INJECT 20 UNITS SUBCUTANEOUSLY TWICE DAILY FOR DIABETES INJECT 15 MINUTES BEFORE MEALS Rx# [id number] Last Released: 12/20/24 Qty/Days Supply: Rx Expiration Date: 12/18/25 Refills Remainin Indication: FOR DIABETES OUTPT INSULIN,GLARGINE 100 UNT/ML 3ML SOLOSTAR (Status = Active) INJECT 30 UNITS SUBCUTANEOUSLY TWICE DAILY Rx# [id number] Last Released: 12/20/24 Qty/Days Supply: Rx Expiration Date: 12/18/25 Refills Remainin Indication: FOR DIABETES OUTPT INSULIN,GLARGINE-YFGN 100UNIT/ML PEN 3ML (Status = Discontinued) INJECT 22 UNITS SUBCUTANEOUSLY TWICE DAILY FOR DIABETES Rx# [id number] Last Released: 08/20/24 Qty/Days Supply: Rx Expiration Date: 12/03/24 Refills Remainin Indication: FOR DIABETES OUTPT INSULIN,GLARGINE-YFGN 100UNIT/ML PEN 3ML (Status = Discontinued) INJECT 22 UNITS SUBCUTANEOUSLY TWICE DAILY FOR DIABETES Rx# [id number] Last Released: 10/06/24 Qty/Days Supply: Rx Expiration Date: 10/07/25 Refills Remainin Indication: FOR DIABETES OUTPT LOPERAMIDE HCL 2MG CAP (Status = Active) TAKE ONE CAPSULE BY MOUTH THREE TIMES DAILY WITH MEALS FOR DIARRHEA Rx# [id number] Last Released: 09/10/24 Qty/Days Supply: Rx Expiration Date: 09/11/25 Refills Remainin Indication: FOR DIARRHEA OUTPT MELATONIN 1MG CAP/TAB (Status = Discontinued) TAKE SIX CAPSULE/TABLET BY MOUTH AT BEDTIME NEEDED INSOMNIA Rx# [id number] Last Released: 10/07/24 Qty/Days Supply: Rx Expiration Date: 06/26/25 Refills Remainin Indication: FOR INSOMNIA OUTPT MELATONIN 1MG CAP/TAB (Status = Active) TAKE SIX CAPSULE/TABLET BY MOUTH AT BEDTIME NEEDED INSOMNIA Rx# [id number] Last Released: 12/02/24 Qty/Days Supply: Rx Expiration Date: 10/07/25 Refills Remainin Indication: FOR INSOMNIA Non-VA METFORMIN HCL 1000MG TAB TAKE ONE TABLET BY MOUTH TWICE DAILY Patient wants to buy from Non-VA pharmacy. Medication prescribed by Non-VA provider. Non-VA METOPROLOL TARTRATE 25MG TAB TAKE ONE TABLET BY MOUTH EVERY DAY Patient wants to buy from Non-VA pharmacy. Medication prescribed by Non-VA provider. OUTPT MIRTAZAPINE 30MG TAB (Status = Active) TAKE ONE TABLET BY MOUTH AT BEDTIME FOR DEPRESSION/MOOD Rx# [id number] Last Released: 12/02/24 Qty/Days Supply: Rx Expiration Date: 09/09/25 Refills Remainin OUTPT MUPIROCIN 2% OINT (Status = Active) APPLY THIN LAYER TOPICALLY EVERY OTHER DAYS Rx# [id number] Last Released: 06/09/24 Qty/Days Supply: Rx Expiration Date: 06/10/25 Refills Remainin Indication: FOR SKIN INFECTION OUTPT NICOTINE 14MG/24HR PATCH (Status = Active) APPLY 1 PATCH TOPICALLY ONCE DAILY (REMOVE OLD PATCH BEFORE APPLYING NEW PATCH) Rx# [id number] Last Released: 11/30/24 Qty/Days Supply: Rx Expiration Date: 12/26/24 Refills Remainin OUTPT NICOTINE 2MG GUM (Status = Active) CHEW 1 PIECE BY MOUTH EVERY 2 HOURS NEEDED FOR SMOKING CESSATION Rx# [id number] Last Released: 11/30/24 Qty/Days Supply: Rx Expiration Date: 12/26/24 Refills Remainin OUTPT POTASSIUM CL 20MEQ SA TAB (DISPERSIBLE) (Status = ) TAKE ONE TABLET BY MOUTH ONCE DAILY FOR LOW POTASSIUM Rx# [id number] Last Released: 11/02/24 Qty/Days Supply: 02/18 Rx Expiration Date: 11/27/24 Refills Remainin Indication: FOR LOW POTASSIUM OUTPT SEMAGLUTIDE 0.25MG/0.375ML INJ PEN 3ML (Status = Discontinued) INJECT 0.5MG SUBCUTANEOUSLY ONCE A WEEK FOR TYPE 2 DIABETES MELLITUS Rx# [id number] Last Released: 09/10/24 Qty/Days Supply: 12/14 Rx Expiration Date: 10/10/24 Refills Remainin Indication: FOR TYPE 2 DIABETES MELLITUS OUTPT SEMAGLUTIDE 0.25MG/0.375ML INJ PEN 3ML (Status = Discontinued) INJECT 0.5MG SUBCUTANEOUSLY ONCE A WEEK FOR TYPE 2 DIABETES MELLITUS Rx# [id number] Last Released: 10/06/24 Qty/Days Supply: 12/14 Rx Expiration Date: 10/07/25 Refills Remainin Indication: FOR TYPE 2 DIABETES MELLITUS OUTPT SEMAGLUTIDE 0.25MG/0.375ML INJ PEN 3ML (Status = Active) INJECT 0.5MG SUBCUTANEOUSLY ONCE A WEEK FOR TYPE 2 DIABETES MELLITUS Rx# [id number] Last Released: 11/05/24 Qty/Days Supply: 12/14 Rx Expiration Date: 10/29/25 Refills Remainin Indication: FOR TYPE 2 DIABETES MELLITUS OUTPT TOPIRAMATE 25MG TAB (Status = Active) TAKE ONE TABLET BY MOUTH TWICE DAILY NEEDED FOR ANXIETY/HEADACHE (OFF LABEL FOR ANXIETY) Rx# [id number] Last Released: 12/16/24 Qty/Days Supply: Rx Expiration Date: 06/26/25 Refills Remainin Non-VA VITAMIN B COMPLEX CAP,ORAL TAKE BY MOUTH Medication prescribed by Non-VA provider. Non-VA VITAMIN D3 (CHOLECALCIFEROL) TAB TAKE BY MOUTH Medication prescribed by Non-VA provider. SUPPLIES OUTPT ALCOHOL PREP PAD (Status = Active) USE 1 PAD TOPICALLY THREE TIMES A DAY TO CLEAN SKIN FOR INJECTION ETC Rx# [id number] Last Released: 11/01/24 Qty/Days Supply: Rx Expiration Date: 04/03/25 Refills Remainin OUTPT GLUCOSE SENSOR DEXCOM G7 (Status = Discontinued) USE 1 SENSOR DIRECTED EVERY 10 DAYS Rx# [id number] Last Released: 08/10/24 Qty/Days Supply: Rx Expiration Date: 04/03/25 Refills Remainin OUTPT GLUCOSE SENSOR DEXCOM G7 (Status = Active) USE 1 SENSOR DIRECTED EVERY 10 DAYS Rx# [id number] Last Released: 11/05/24 Qty/Days Supply: Rx Expiration Date: 10/29/25 Refills Remainin OUTPT NEEDLE,PEN 31G,5MM (Status = ) USE 1 NEEDLE SUBCUTANEOUSLY FOUR TIMES A DAY FOR USE WITH PEN DEVICE Rx# [id number] Last Released: 08/23/24 Qty/Days Supply: 300/60 Rx Expiration Date: 10/03/24 Refills Remainin OUTPT NEEDLE,PEN 31G,5MM (Status = Active) USE 1 NEEDLE SUBCUTANEOUSLY FOUR TIMES A DAY FOR USE WITH PEN DEVICE Rx# [id number] Last Released: 12/21/24 Qty/Days Supply: 400/90 Rx Expiration Date: 12/18/25 Refills Remainin /caio/ LIBAN ROBBINS DNP, ELECTRIC DOLLY OPERATOR-C NURSE PRACTITIONER Signed: 12/21/2024 13:56 LIBAN ROBBINS [facility]
--- OUTSIDE RECORDS SUMMARY | 2024-12-28 10:00 | XMS_ITS | Encounter Summary ---
Author Name [place] Address [address] [place] [address] Care Team Providers Care Client Retention Specialist Name Role Phone CHRISTI ARIAS Primary Care [...] Name Patient's Relationship to Policy [facility] ([facility]) MEDICARE ADVANTAGE [facility] ([facility]) Nov 17, 2017 NONE [id number] DARRELL HUTCHINS PATIENT [facility] ([facility]) MEDICARE ADVANTAGE [facility] ([facility]) Nov 17, 2017 [id number] DARRELL HUTCHINS PATIENT MEDICAID MEDICAID [facility] Jan 15, 2017 MEDICAI D [id number] DARRELL HUTCHINS PATIENT Selected Encounter This section includes the information on record at [place] for the Encounter. Date/Time Encounter Type Encounter Description Reason Provider Source Dec 28, 2024 02:00 PM PSYTX W PT 45 MINUTES [facility] ICD-10-CM F32.9 Major depressive disorder, single episode, unspecified OFEMELY MEJIA Johanna Encounter Template Text not used by [place] Assessments - Encounter Diagnoses This section includes the primary and secondary diagnoses documented for the Encounter. Date/Time Primary/Secondary Diagnosis Diagnosis Name Provider Source Dec 30, 2024 11:09 AM PRIMARY Major depressive disorder, single episode, unspecified OFEMELY MEJIA [place] Plan of Treatment: Future Appointments (+ 6 months) and Future Tests (+/- 45 days) The Plan of Treatment section includes future care activities for the patient from all [place] [facility]. This section includes future appointments and future orders which are active, pending or scheduled. Future Appointments This section includes appointments that were scheduled to occur 6 months from the date of the Encounter, up to a maximum of 20 appointments. The data comes from all [place] treatment facilities. Appointment Date/Time Appointment Type Appointme nt Facility Name Jan 06, 2025 01:00 PM AMBULATORY - PSYCHIATRY [facility] Jan 25, 2025 02:00 PM AMBULATORY - PSYCHIATRY [facility] Jan 25, 2025 03:00 PM AMBULATORY - PSYCHIATRY [facility] Feb 08, 2025 11:15 AM AMBULATORY - NONE [facility] [place] [facility] Feb 08, 2025 11:30 AM AMBULATORY - MEDICINE [place] [facility] [place] [facility] Feb 10, 2025 01:00 PM AMBULATORY - PSYCHIATRY [facility] Feb 17, 2025 12:30 PM AMBULATORY - MEDICINE [place] [facility] [place] [facility] Mar 08, 2025 01:30 PM AMBULATORY - PSYCHIATRY [facility] Mar 08, 2025 02:00 PM AMBULATORY - PSYCHIATRY [facility] March 17, 2025 01:00 PM AMBULATORY - PSYCHIATRY [facility] March 18, 2025 11:30 AM AM[facility]ULATORY - MEDICINE [facility] April 04, 2025 12:30 PM AMBULATORY - MEDICINE [place] [facility] [place] [facility] April 12, 2025 02:00 PM AMBULATORY - REHAB MEDICIN E [facility] [place] [facility] April 12, 2025 02:15 PM AMBULATORY - MEDICINE [facility] April 15, 2025 01:30 PM AMBULATORY - MEDICINE [facility] Apr 20, 2025 02:30 PM AMBULATORY - PSYCHIATRY [facility] May 02, 2025 01:00 PM AMBULATORY - MEDICINE [place] [facility] [place] [facility] Jun 06, 2025 02:00 PM AMBULATORY - MEDICINE [facility] Jun 13, 2025 01:00 PM AM[facility]UL[facility]ORY - [facility]INE [facility] Jun 14, 2025 01:00 PM AMBULATORY - PSYCHIATRY [facility] Social History: Smoking Status (Most current) and Tobacco Use (All prior to encounter date) This section includes the most current, and the historical, smoking and tobacco- related health factors from the [place] facility where the Encounter took place. Current Smoking Status This section includes the most current smoking, or tobacco-related health factor, from the [place] facility where the Encounter took place. Date/Time Current Smoking Status Comment Facil it Aug 24, 2021 11:30 AM VA-TOBACCO USER EVERY DAY [place] Tobacco Use History This section includes a history of the smoking, or tobacco-related health factors, that were collected on or before the date of the Encounter. The data comes from the [place] facility where the Encounter took place. 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 [place] Aug 24, 2021 11:30 AM VA-TOBACCO USE MED [facility] Aug 24, 2021 11:30 AM VA-TOBACCO USE [place] 30 MIN OF WAKEUP [place] Aug 24, 2021 11:30 AM VA-TOBACCO USER EVERY DAY [place] May 11, 2020 09:35 AM VA-TOBACCO DOESNT USE WI 30 MIN [facility] May 11, 2020 09:35 AM VA-TOBACCO USE 30 YEARS OR MORE [place] May 11, 2020 09:35 AM VA-TOBACCO USE ADVICE [place] May 11, 2020 09:35 AM 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 [place] May 11, 2020 09:35 AM VA-TOBACCO USE MED [facility] May 11, 2020 09:35 AM VA-TOBACCO USER EVERY DAY [place] Jan 28, 2019 10:44 AM VA-TOBACCO DOESNT USE WI 30 MIN WAKEUP [place] Jan 28, 2019 10:44 AM VA-TOBACCO USE 5 TO 15 YEARS [place] Jan 28, 2019 10:44 AM VA-TOBACCO USE ADVICE [place] Jan 28, 2019 10:44 AM 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 Date/Time Encounter Note(s) Provider Source Dec 30, 2024 11:10 AM ADDENDUM: LOCAL TITLE: Addendum STANDARD TITLE: ADDENDUM DATE OF NOTE: DEC 30, 2024@11:10:07 ENTRY DATE: DEC 30, 2024@11:10:08 AUTHOR: EMELY PERLA EXP COSIGNER: URGENCY: STATUS: COMPLETED Please RTC /es/ Emely Perla PhD LP MST Coordinator and Staff Psychologist Signed: 12/30/2024 11:10 Receipt Acknowledged By: 12/30/2024 11:14 /caio/ DANIEL RESENDEZ ADVANCED BIOLOGY MANAGER --- Original Document --- 12/28/24 PSYCHOLOGY NOTE: VISIT DURATION 50 minutes DIAGNOSES: Depression, PTSD chronic, tobacco use disorder VETERANS STATEMENT OF GOALS/CONCERNS: Nat's main concern this session: I'm depressed. My health is crap and my legs don't work. I'm having bathroom issues. I wake up crying sometimes SESSION FOCUS: Nat today reports he has many upcoming medical appointments that he needs to confirm, schedule or reschedule. Agricultural Research Director assists with these tasks. We confirm his catheterization procedure as well as 2 upcoming appointments. We contacted ortho about an injection in his knee that reduces his pain. We also discussed his finances, which barely get him through the month, with very little contribution from his son. is in good spirits. Agricultural Research Director again asks him to consider joining a peer support group, but is ambivalent. As always, brightens significantly during social/interpersonal contact. By the end of this session, he is laughing and making jokes. INTERVENTIONS: Psychotherapeutic Interventions: active listening, validation, Encouraging social connection Review of upcoming appointment Facilitation and scheduling of medical appointments. Readiness for change: Nat is in the [...] emotion, and social connection created by therapy. Agricultural Research Director's treatment plan is to increase social engagement and use [place] to increase motivation to work on anger and/or behavioral activation. Agricultural Research Director's strong recommendation is for Nat to attend anger management and peer support group, EBP for PTSD, or PTSD W9 program. Nat requests monthly supportive therapy check-ins. More frequent sessions are recommended to treat depression using CBT/behavioral activation, but given Nat's stated level of motivation and desire for supportive care, monthly sessions are appropriate. Sahil also meets with Camila Deutsch for social service support. ASSESSMENT: BRIEF ASSESSMENT OF MENTAL STATUS: 1. [...] delusions): No evidence 8. Mood was normal: yes euthymic Other Observations: RISK ASSESSMENT: Risk: Nat's acute [...] planned for: RTC 1 month Diagnoses: Depression ([facility] [id number]) - Major depressive disorder, single episode, unspecified (ICD-10-CM F32.9) (Primary) Procedures: Psychotherapy 38-52 min - Synchronous Telemedicine Service /caio/ Emely Perla PhD LP [facility] Coordinator and Staff Psychologist Signed: 12/30/2024 11:09 EMELY PERLA [place] Dec 28, 2024 04:02 PM PSYCHOLOGY NOTE: LOCAL TITLE: PSYCHOLOGY NOTE STANDARD TITLE: PSYCHOLOGY NOTE DATE OF NOTE: DEC 28, 2024@16:02 ENTRY DATE: DEC 28, 2024@16:02:31 AUTHOR: EMELY PERLA EXP COSIGNER: URGENCY: STATUS: COMPLETED PSYCHOLOGY NOTE Has ADDENDA VISIT DURATION 50 minutes DIAGNOSES: Depression, PTSD chronic, tobacco use disorder VETERANS STATEMENT OF GOALS/CONCERNS: Nat's main concern this session: I'm depressed. My health is crap and my legs don't work. I'm having bathroom issues. I wake up crying sometimes SESSION FOCUS: Nat today reports he has many upcoming medical appointments that he needs to confirm, schedule or reschedule. Agricultural Research Director assists with these tasks. We confirm his catheterization procedure as well as 2 upcoming appointments. We contacted ortho about an injection in his knee that reduces his pain. We also discussed his finances, which barely get him through the month, with very little contribution from his son. [place] is in good spirits. Agricultural Research Director again asks him to consider joining a peer support group, but is ambivalent. As always, sahil brightens significantly during social/interpersonal contact. By the end of this session, he is laughing and making jokes. INTERVENTIONS: Psychotherapeutic Interventions: active listening, validation, Encouraging social connection Review of upcoming appointment Facilitation and scheduling of medical appointments. Readiness for change: Nat is in the [...] emotion, and social connection created by therapy. Agricultural Research Director's treatment plan is to increase social engagement and use [place] to increase motivation to work on anger and/or behavioral activation. Agricultural Research Director's strong recommendation is for Nat to attend anger management and peer support group, EBP for PTSD, or PTSD W9 program. Elizabetht requests monthly supportive therapy check-ins. More frequent sessions are recommended to treat depression using CBT/behavioral activation, but given Nat's stated level of motivation and desire for supportive care, monthly sessions are appropriate. [place] also meets with Camila Deutsch for social service support. ASSESSMENT: BRIEF ASSESSMENT OF MENTAL STATUS: 1. [...] delusions): No evidence 8. Mood was normal: yes euthymic Other Observations: RISK ASSESSMENT: Risk: Nat's acute [...] planned for: RTC 1 month Diagnoses: Depression ([facility] [id number]) - Major depressive disorder, single episode, unspecified (ICD-10-CM F32.9) (Primary) Procedures: Psychotherapy 38-52 min - Synchronous Telemedicine Service /caio/ Emely Perla PhD, LP [facility] Coordinator and Staff Psychologist Signed: 12/30/2024 11:09 12/30/2024 ADDENDUM STATUS: COMPLETED Please RTC /caio/ Emely Perla PhD, LP MST Coordinator and Staff Psychologist Signed: 12/30/2024 11:10 Receipt Acknowledged By: * AWAITING SIGNATURE * DANIEL RESENDEZ [place]
--- OUTSIDE RECORDS SUMMARY | 2025-01-06 09:00 | XMS_ITS | Encounter Summary ---
Author Name [facility] [place] Organization [place] Address [address] [place] [address] Care Team Providers Care Dumpster Operator Name Role Phone CHRISTI ARIAS Primary [...] Name Patient's Relationship to Policy [facility] ([facility]) MEDICARE ADVANTAGE [facility] ([facility]) Nov 17, 2017 NONE [id number] STANFORDDARRELL LINDO PATIENT [facility] ([facility]) MEDICARE ADVANTAGE [facility] ([facility]) Nov 17, 2017 [id number] DARRELL HUTCHINS PATIENT MEDICAID MEDICAID [facility] Jan 15, 2017 MEDICAI D [id number] STANFORDNATHANIELJohannaDARRELL HEENAJOHNNY PATIENT Selected Encounter This section includes the information on record at [place] for the Encounter. Date/Time Encounter Type Encounter Description Reason Provider Source Jan 06, 2025 01:00 PM OFF/OP EST MARCH X REQ PHY/QHP [facility] - IND ICD-10-CM Z71.89 Other specified counseling JANNETTE AVELAR [facility] Encounter Template Text not used by [place] Assessments - Encounter Diagnoses This section includes the primary and secondary diagnoses documented for the Encounter. Date/Time Primary/Secondary Diagnosis Diagnosis Name Provider Source Jan 06, 2025 03:19 PM PRIMARY Other specified counseling JANNETTE AVELAR [place] Plan of Treatment: Future Appointments (+ 6 months) and Future Tests (+/- 45 days) The Plan of Treatment section includes future care activities for the patient from all [place] [facility]. This section includes future appointments and future orders which are active, pending or scheduled. Future Appointments This section includes appointments that were scheduled to occur 6 months from the date of the Encounter, up to a maximum of 20 appointments. The data comes from all [place] treatment facilities. Appointment Date/Time Appointment Type Appointme nt Facility Name Jan 25, 2025 02:00 PM AMBULATORY - PSYCHIATRY [facility] Jan 25, 2025 03:00 PM AMBULATORY - PSYCHIATRY [facility] Feb 08, 2025 11:15 AM AMBULATORY - NONE [facility] [place] [facility] Feb 08, 2025 11:30 AM AMBULATORY - MEDICINE [facility] [place] [facility] Feb 10, 2025 01:00 PM AMBULATORY - PSYCHIATRY [facility] Feb 17, 2025 12:30 PM AMBULATORY - MEDICINE [facility] [place] [facility] Mar 08, 2025 01:30 PM AMBULATORY - PSYCHIATRY [facility] Mar 08, 2025 02:00 PM AMBULATORY - PSYCHIATRY [facility] March 17, 2025 01:00 PM AMBULATORY - PSYCHIATRY [facility] March 18, 2025 11:30 AM [facility]ATORY - MEDICINE [facility] April 04, 2025 12:30 PM AMBULATORY - MEDICINE [facility] [place] [facility] April 12, 2025 02:00 PM AMBULATORY - REHAB MEDICIN E [facility] [place] [facility] April 12, 2025 02:15 [facility] April 15, 2025 01:30 PM AMBULATORY - MEDICINE [facility] Apr 20, 2025 02:30 PM AMBULATORY - PSYCHIATRY [facility] May 02, 2025 01:00 PM AMBULATORY - MEDICINE [facility] [place] [facility] Jun 06, 2025 02:00 PM AMBULATORY - MEDICINE [facility] Jun 13, 2025 01:00 PM AMBULATORY - MEDICINE [facility] [place] [facility] Jun 14, 2025 01:00 PM AMBULATORY - PSYCHIATRY [facility] Jun 14, 2025 02:00 PM AMBULATORY - PSYCHIATRY [facility] Social History: Smoking Status (Most current) and Tobacco Use (All prior to encounter date) This section includes the most current, and the historical, smoking and tobacco- related health factors from the [place] facility where the Encounter took place. Current Smoking Status This section includes the most current smoking, or tobacco-related health factor, from the [place] facility where the Encounter took place. Date/Time Current Smoking Status Comment Facil it Aug 24, 2021 11:30 AM VA-TOBACCO USER EVERY DAY [place] Tobacco Use History This section includes a history of the smoking, or tobacco-related health factors, that were collected on or before the date of the Encounter. The data comes from the [place] facility where the Encounter took place. 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 [place] Aug 24, 2021 11:30 AM VA-TOBACCO USE MED [facility] Aug 24, 2021 11:30 AM VA-TOBACCO USE WI 30 MIN OF WAKEUP [place] Aug 24, 2021 11:30 AM VA-TOBACCO USER EVERY DAY [place] May 11, 2020 09:35 AM VA-TOBACCO DOESNT USE WI 30 MIN [facility] May 11, 2020 09:35 AM VA-TOBACCO USE 30 YEARS OR MORE [place] May 11, 2020 09:35 AM VA-TOBACCO USE ADVICE [place] May 11, 2020 09:35 AM 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 [place] May 11, 2020 09:35 AM VA-TOBACCO USE MED [facility] May 11, 2020 09:35 AM VA-TOBACCO USER EVERY DAY [place] Jan 28, 2019 10:44 AM VA-TOBACCO DOESNT USE WI 30 MIN [facility] Jan 28, 2019 10:44 AM VA-TOBACCO USE 5 TO 15 YEARS [place] Jan 28, 2019 10:44 AM VA-TOBACCO USE ADVICE [place] Jan 28, 2019 10:44 AM 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 Date/Time Encounter Note(s) Provider Source Jan 06, 2025 03:00 PM SOCIAL WORK NOTE: LOCAL TITLE: SOCIAL WORK NOTE STANDARD TITLE: SOCIAL WORK NOTE DATE OF NOTE: JAN 06, 2025@15:00 ENTRY DATE: JAN 06, 2025@15:00:25 AUTHOR: JANNETTE AVELAR COSIGNER: URGENCY: STATUS: COMPLETED is seen for supportive visits/case management visits, referred to this worker by Dr. Perla. [facility]. He has a balance of $428, I can't pay this, is there something you can do? Years back this worker did assist w a waiver, we will do the same. Financial information collected, at our next visit we will complete the waiver. He fell earlier today on ice, hurt his lower back, he doesn't think he needs to see a doctor. He tells me he will be getting some type of compression device for his legs, he shows me the pamphlet, he is hopeful it will help his legs. He is happy w how his legs are doing at this time, they are not as swollen and they are no longer weeping. He is also scheduled for a cardiac catheterization later this month, he seems a little nervous about this procedure. He expects his son to drive him to this appointment. Zechariah is asked about his home services- I don't know what happened, the nurse came once and then she never came back... Review of chart indicates never returned calls to set up appointments, that might be true, I don't really remember . He doesn't want to pursue this. Zechariah is friendly, talkative, needs little prompting, tends to ramble but is can be redirected. rtc placed. /caio/ TULIO Huntley HOT [employer]AM[employer] MAN Signed: 01/06/2025 15:20 JANNETTE AVELAR [place]
--- OUTSIDE RECORDS SUMMARY | 2025-01-16 16:40 | XMS_ITS ---
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 Name Role Phone CHRISTI ARIAS [...] Name Patient's Relationship to Policy [facility] (WNR) MEDICARE ADVANTAGE [facility] ([facility]) Nov 17, 2017 NONE [id number] DARRELL HUTCHINS PATIENT [facility] (WNR) MEDICARE ADVANTAGE [facility] (WNR) Nov 17, 2017 [id number] DARRELL HUTCHINS PATIENT MEDICAID MEDICAID [facility] Jan 15, 2017 MEDICAI D [id number] DARRELL HUTCHINS PATIENT Selected Encounter This section includes the information on record at [place] for the Encounter. Date/Time Encounter Type Encounter Description Reason Pro vider Source Jan 16, 2025 08:40 PM Outpatient Encounter ADMIN PAT ACTIVTIES (MASNONCT) IHE Encounter Template Text not used by [place] Plan of Treatment: Future Appointments (+ 6 months) and Future Tests (+/- 45 days) The Plan of Treatment section includes future care activities for the patient from [facility] This section includes future appointments and future orders which are active, pending or scheduled. Future Appointments This section includes appointments that were scheduled to occur 6 months from the date of the Encounter, up to a maximum of 20 appointments. The data comes from all [facility] facilities. Appointment Date/Time Appointment Type Appointme nt Facility Name Jan 25, 2025 02:00 PM AMBULATORY - PSYCHIATRY [facility] Jan 25, 2025 03:00 PM AMBULATORY - PSYCHIATRY [facility] Feb 08, 2025 11:15 AM AMBULATORY - NONE [facility] [place] [facility] Feb 08, 2025 11:30 AM AMBULATORY - MEDICINE [place] [facility] [place] [place] [facility] Feb 10, 2025 01:00 PM AMBULATORY - PSYCHIATRY [facility] Feb 17, 2025 12:30 PM AMBULATORY - MEDICINE [place] [facility] [place] [place] [facility] Mar 08, 2025 01:30 PM AMBULATORY - PSYCHIATRY [facility] Mar 08, 2025 02:00 PM AMBULATORY - PSYCHIATRY [facility] March 17, 2025 01:00 PM AMBULATORY - PSYCHIATRY [facility] March 18, 2025 11:30 AM AMBULATORY - MEDICINE [facility] April 04, 2025 12:30 PM AMBULATORY - MEDICINE [place] [facility] [place] [facility] April 12, 2025 02:00 PM AMBULATORY - REHAB MEDICIN E [facility] [place] [facility] April 12, 2025 02:15 PM AMBULATORY - MEDICINE [facility] April 15, 2025 01:30 PM AMBULATORY - MEDICINE [facility] Apr 20, 2025 02:30 PM AMBULATORY - PSYCHIATRY [facility] May 02, 2025 01:00 PM AMBULATORY - MEDICINE [place] [facility] [place] [facility] Jun 06, 2025 02:00 PM AMBULATORY - MEDICINE [facility] Jun 13, 2025 01:00 PM AMBULATORY - MEDICINE [place] [facility] [place] [facility] Jun 14, 2025 01:00 PM AMBULATORY - PSYCHIATRY [facility] Jun 14, 2025 02:00 PM AMBULATORY - PSYCHIATRY [facility] Social History: Smoking Status (Most current) and Tobacco Use (All prior to encounter date) This section includes the most current, and the historical, smoking and tobacco- related health factors from the [place] facility where the Encounter took place. Current Smoking Status This section includes the most current smoking, or tobacco-related health factor, from the [place] facility where the Encounter took place. Date/Time Current Smoking Status Comment Facil ity May 06, 2024 10:30 AM VA-TOBACCO DOESNT USE WI 30 MIN [facility] Tobacco Use History This section includes a history of the smoking, or tobacco-related health factors, that were collected on or before the date of the Encounter. The data comes from the [place] facility where the Encounter took place. Date/Time Smoking Status/Tobacco Use Comment F acility May 06, 2024 10:30 AM VA-TOBACCO USE 30 YEARS OR MORE [facility] [place] [facility] May 06, 2024 10:30 AM VA-TOBACCO USE ADVICE [facility] [place] [facility] May 06, 2024 10:30 AM VA-TOBACCO USE STULL HEWER NO [facility] [place] [facility] May 06, 2024 10:30 AM VA-TOBACCO USE MED NO [facility] [place] [facility] May 06, 2024 10:30 AM VA-TOBACCO USER EVERY DAY [facility] [place] [facility] Dec 20, 2022 02:06 PM VA-TOBACCO USE 5 TO 15 YEARS [facility] [place] [facility] Dec 20, 2022 02:06 PM VA-TOBACCO USE ADVICE [facility] [place] [facility] Dec 20, 2022 02:06 PM VA-TOBACCO USE STULL HEWER NO [facility] [place] [facility] Dec 20, 2022 02:06 PM VA-TOBACCO USE MED NO [facility] [place] [facility] Dec 20, 2022 02:06 PM VA-TOBACCO USE WI 30 MIN OF WAKEUP [facility] [place] [facility] Dec 20, 2022 02:06 PM VA-TOBACCO USER EVERY DAY [facility] [place] [facility] Radiology Reports: +/- 30 days of the encounter Radiology Reports For cases when an order for radiology services may have been completed prior to the date of the Encounter, the report list includes the Radiology Reports that were completed up to 30 days before dateof the Encounter. For cases when an order for radiology services may have been completed after the date of the Encounter, the report list also includes the Radiology Reports that were completed up to30 days after date of the Encounter. The data comes from all [place] treatment facilities. Date/Time Radiology Report Provider Source Feb 08, 2025 11:21 AM LDCT LUNG CANCER SCREENING: LISSETTE HUTCHINS [id number] -1950 M Exm Date: FEB 08, 2025@11:21 Req Phys: CHRISTI ARIAS Pat Loc: [facility] LCS CHART CONSULT (Req'g L Img Loc: [facility]/CT Service: Unknown [facility] [place] [address] (Case [id number] COMPLETE) LDCT LUNG CANCER SCREENING (CT Detailed) CPT:30913 Reason for Study: Lung Cancer screening Clinical History: 25 TPY, current Comparison: CT thorax 02/06/24 Stable 5.9 mm in greatest dimension left lower lobe subpleural solid well-rounded nodule, 8-244. 02/04/23, 02/08/22. Report Status: Verified Date Reported: FEB 08, 2025 Date Verified: FEB 08, 2025 Batch Records Clerk E-Sig:/ES/KEIRY FERRARI JR Report: Study: Lung cancer screening CT of the chest. Provided History: Lung cancer screening. Comparison: CT scan of the chest from February 06, 2024, February 04, 2023 and January 29, 2022. Technique: 1 mm lung algorithm and 3 mm soft tissue algorithm axial reconstructions from the lung apices through the lung bases without the administration of intravenous contrast as per standard department protocol for lung cancer screening. Subsequently, sagittal and coronal reformats were generated. MIP images also provided and reviewed. Secondary computer-aided detection with post-processing from [employer] is used. The lack of intravenous contrast inherently limits the evaluation of hilar structures, vascular structures, and abnormal enhancement patterns. Lower than standard dose was utilized limiting sensitivity for fine parenchymal detail. Dose Parameters: CTDI(vol): 3.5 mGy. DLP: 123.1 mGy*cm. Findings: Lungs: Emphysema: Mild scattered bullous emphysematous changes with associated scattered parenchymal scarring is unchanged. Index Nodule: Stable 5.9 mm solid, round, well-circumscribed, juxtapleural left lower lobe pulmonary nodule, 8-242. Other Nodules: None Lungs/airway findings: Mild stable elevation of the right hemidiaphragm. Multiple scattered bilateral punctate calcified granulomata are again seen. No acute pulmonary process or pleural effusion is identified. There are mild dependent changes present at the lung bases. The tracheobronchial tree is patent and normal. Heart, mediastinum and lymph nodes: The heart size is normal. No pericardial effusion identified. Normal caliber thoracic aorta. No mediastinal or hilar lymphadenopathy by size criteria. No axillary lymphadenopathy by size criteria. Normal caliber pulmonary arteries. Visualized coronary artery and aortic calcifications: Atherosclerotic changes of the aorta and coronary arteries. Upper abdomen: Status post cholecystectomy. Bones and soft tissues: Mild symmetric gynecomastia changes again seen. Normal age-related degenerative changes present. No acute bony abnormality identified. ACDF hardware partially visualized. Other findings: None. Impression: No significant interval change or new abnormality, as described above. Lung-RADS Assessment: Category 2, benign appearance or behavior. Recommendation: Continue annual screening with lung cancer screening CT in 12 months. Other Significant Findings and Recommendations: None. Primary Diagnostic Code: No immediate attention required Secondary Diagnostic Codes: LUNGRADS 2: BENIGN APPEARANCE OR BEHAVIOR Primary Interpreting Staff: KEIRY FERRARI JR, Radiologist (Batch Records Clerk) /KEIRY DODD JR [facility] Encounter Notes: All associated encounter notes This section contains the clinical notes associated to the Encounter. Date/Time Encounter Note(s) Provider Source Jan 16, 2025 08:40 PM PHARMACY NOTE: LOCAL TITLE: V1 PHARMACY CUSTOMER CARE MEDICATION RENEWAL STANDARD TITLE: PHARMACY NOTE DATE OF NOTE: JAN 16, 2025@20:40 ENTRY DATE: JAN 16, 2025@20:40:16 AUTHOR: JEISON CHAUHAN COSIGNER: URGENCY: STATUS: COMPLETED Date: Jan Division: [facility] referred by Pharmacy Call Center for medication renewal: Non-controlled/maintenanc e medication Medications requested: [id number]$ MAGNESIUM OXIDE 420MG TAB This medication is discontinued per the medication profile, however the [facility] The can be reached at to discuss further. Please review. Defer to primary care provider To be mailed . Please review and renew if appropriate. *This note was generated by [facility] Pharmacy Customer Care. If you have any questions or need assistance, do not contact this author. Please refer all questions to your local, on-site pharmacy departments. /caio/ Jeison Chauhan CPhT Receiver Setter, MS/Pharmacy Customer Care Signed: 01/16/2025 20:40 Receipt Acknowledged By: 01/17/2025 08:10 /es/ MINNA HOLT NP NURSE PRACTITIONER for CHRISTI ARIAS 01/17/2025 09:13 /es/ DANIA GORMAN, RN REGISTERED NURSE for JEISON ANDINO [facility]
--- OUTSIDE RECORDS SUMMARY | 2025-01-25 10:00 | XMS_ITS | Encounter Summary ---
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 Role Phone CHRISTI ARIAS Primary Care [...] Name Patient's Relationship to Policy [facility] ([facility]) MEDICARE ADVANTAGE [facility] ([facility]) Nov 17, 2017 NONE [id number] DARRELL HUTCHINS PATIENT [facility] ([facility]) MEDICARE ADVANTAGE [facility] ([facility]) Nov 17, 2017 [id number] DARRELL HUTCHINS PATIENT MEDICAID MEDICAID [facility] Jan 15, 2017 MEDICAI D [id number] DARRELL HUTCHINS PATIENT Selected Encounter This section includes the information on record at [place] for the Encounter. Date/Time Encounter Type Encounter Description Reason Provider Source Jan 25, 2025 02:00 PM PSYTX W PT 45 [facility] - IND ICD-10-CM F32.9 Major depressive disorder, single episode, unspecified EMELY PERLA Johanna Encounter Template Text not used by [place] Assessments - Encounter Diagnoses This section includes the primary and secondary diagnoses documented for the Encounter. Date/Time Primary/Secondary Diagnosis Diagnosis Name Provider Source Jan 27, 2025 11:21 AM PRIMARY Major depressive disorder, single episode, unspecified OFEMELY MEJIA SAHW Plan of Treatment: Future Appointments (+ 6 months) and Future Tests (+/- 45 days) The Plan of Treatment section includes future care activities for the patient from all [place] [facility]. This section includes future appointments and future orders which are active, pending or scheduled. Future Appointments This section includes appointments that were scheduled to occur 6 months from the date of the Encounter, up to a maximum of 20 appointments. The data comes from all [place] treatment facilities. Appointment Date/Time Appointment Type Appointme nt Facility Name Feb 08, 2025 11:15 AM AMBULATORY - NONE [place] [facility] [place] [facility] Feb 08, 2025 11:30 AM AMBULATORY - MEDICINE [place] [facility] [place] [facility] Feb 10, 2025 01:00 PM AMBULATORY - PSYCHIATRY [facility] Feb 17, 2025 12:30 PM AMBULATORY - MEDICINE [place] [facility] [place] [facility] Mar 08, 2025 01:30 PM AMBULATORY - PSYCHIATRY [facility] Mar 08, 2025 02:00 PM AMBULATORY - PSYCHIATRY [facility] March 17, 2025 01:00 PM AMBULATORY - PSYCHIATRY [facility] March 18, 2025 11:30 AM AMBULATORY - MEDICINE [facility] April 04, 2025 12:30 PM AMBULATORY - MEDICINE [place] [facility] [place] [facility] April 12, 2025 02:00 PM AMBULATORY - REHAB MEDICIN E [facility] [place] [facility] April 12, 2025 02:15 PM [facility] April 15, 2025 01:30 PM AMBULATORY - MEDICINE [facility] Apr 20, 2025 02:30 PM AMBULATORY - PSYCHIATRY [facility] May 02, 2025 01:00 PM AMBULATORY - MEDICINE [place] [facility] [place] [facility] Jun 06, 2025 02:00 PM AMBULATORY - MEDICINE [facility] Jun 13, 2025 01:00 PM AMBULATORY - MEDICINE [place] [facility] [place] [facility] Jun 14, 2025 01:00 PM AMBULATORY - PSYCHIATRY [facility] Jun 14, 2025 02:00 PM AMBULATORY - PSYCHIATRY [facility] Jul 12, 2025 01:00 PM AMBULATORY - PSYCHIATRY [facility] Jul 22, 2025 01:00 PM AMBULATORY - MEDICINE [facility] Lab Results: +/- 30 days of [...] Unit Interpretation Reference Range Specimen Type Comment Feb 17, 2025 01:36 PM [facility] HEMOGLOBIN A1C PANEL BLOOD Specimen Type: BLOOD Comment: Values obtained from A1C measurements can vary. For atypical A1C assays, a reported value of 7.0 could actually be between 6.72 and 7.28 if measured by a reference method. A reported value of 9.0 could actually be between 8.73 and 9.27. Ref: http://www.ngsp .org/CAPdata.as p Ordering Provider: LAMBERTO MIKE Report Released Date/Time: Feb 17, 2025 12:49 PM Reporting Lab: [address] [address] Performing Lab: [address] [address] HEMOGLOBIN A1C 8.7 H 4.0-5.6 Feb 17, 2025 01:36 PM [facility] LIPID PANEL FASTING SERUM Specimen Type: SERU M No comment entered. Ordering Provider: LAMBERTO MIKE Report Released Date/Time: Feb 17, 2025 12:49 PM Reporting Lab: [address] [address] Performing Lab: [address] [address] CHOLESTEROL 140 mg/dL TRIGLYCERIDE 108 mg/dL 0-150 LDL calculated 72 mg/dL 0-129 CHOL/HDL 3.0 HDL CHOLESTEROL 46 mg/dL 40-60 Feb 17, 2025 01:36 PM [facility] MICROALBUMIN CREATININE RATIO PANEL URINE Spe cimen Type: URINE No comment entered. Ordering Provider: LAMBERTO MIKE Report Released Date/Time: Feb 17, 2025 12:49 PM Reporting Lab: [facility] [address] [facility] [address] Performing Lab: [facility] [address] [address] MICROALBUMIN/CREATININE RATIO 17.0 mg/g 0-29.9 MICROALBUMIN,QUANTITATIVE 3.6 mg/dL RR U NAVAIL CREATININE URINE 211.81 mg/dL Feb 17, 2025 01:36 PM [facility] CBC BLOOD Specimen Type: BLOOD No comment entered. Ordering Provider: LAMBERTO MIKE Report Released Date/Time: Feb 17, 2025 12:49 PM Reporting Lab: [address] [address] Performing Lab: [address] [address] WBC 10.02 10*3/uL 4.50-11.00 RBC 4.82 10*6/uL 4.23-5.66 HGB 14.7 g/dL 12.8-17 HCT 43.0 39.2-50.4 MCV 89.2 fL 82-99 MCHC 34.2 g/dL 30.8-35.1 PLT 207 10*3/uL 140-360 MPV 11.5 fL 9.2-12.4 RDW-CV 13.9 12.0-16.0 MCH 30.5 pg 26.2-32.6 Feb 17, 2025 01:36 PM [facility] BASIC METABOLIC PANEL (fasting) SERUM Specime n Type: SERUM No comment entered. Ordering Provider: LAMBERTO MIKE Report Released Date/Time: Feb 17, 2025 12:49 PM Reporting Lab: [address] [address] Performing Lab: [address] [address] UREA NITROGEN 15 mg/dL 7-25 GLUCOSE 75 mg/dL 65-100 SODIUM 134 mmol/L L 135-145 POTASSIUM 3.9 mmol/L 3.5-5.0 CHLORIDE 105 mmol/L 100-110 CO2 22 meq/L 20-30 CALCIUM 9.3 mg/dL 8.5-10.2 CREATININE, Serum 0.87 mg/dL 0.50-1.40 eGFR(CKD-EPI 2020) >90 mL/min >60 Social History: Smoking Status (Most current) and [...] place. Date/Time Current Smoking Status Comment Kiki corcoran Aug 24, 2021 11:30 AM VA-TOBACCO USER EVERY DAY [facility] Tobacco Use History This section includes a history of the smoking, or tobacco-related health factors, that were collected on or before the date of the Encounter. The data comes from the [place] facility where the Encounter took place. Date/Time Smoking Status/Tobacco Use Comment F acility Aug 24, 2021 11:30 AM VA-TOBACCO USE ADVICE [place] Aug 24, 2021 11:30 AM VA-TOBACCO USE PROSTHODONTIST NO [facility] Aug 24, 2021 11:30 AM VA-TOBACCO USE MED [facility] Aug 24, 2021 11:30 AM VA-TOBACCO USE WI 30 MIN OF [facility] Aug 24, 2021 11:30 AM VA-TOBACCO USER EVERY DAY [place] May 11, 2020 09:35 AM VA-TOBACCO DOESNT USE WI 30 MIN LUDLOWUP [place] May 11, 2020 09:35 AM VA-TOBACCO USE 30 YEARS OR MORE [facility] May 11, 2020 09:35 AM VA-TOBACCO USE ADVICE [facility] May 11, 2020 09:35 AM VA-TOBACCO USE PROSTHODONTIST NO [place] May 11, 2020 09:35 AM VA-TOBACCO USE MED NO [facility] May 11, 2020 09:35 AM VA-TOBACCO USER EVERY DAY [facility] Jan 28, 2019 10:44 AM VA-TOBACCO DOESNT USE WI 30 MIN [facility] Jan 28, 2019 10:44 AM VA-TOBACCO USE 5 TO 15 YEARS [place] Jan 28, 2019 10:44 AM VA-TOBACCO USE ADVICE [facility] Jan 28, 2019 10:44 AM VA-TOBACCO USE PROSTHODONTIST NO [place] Jan 28, 2019 10:44 AM VA-TOBACCO USE MED NO [facility] Jan 28, 2019 10:44 AM VA-TOBACCO USER EVERY DAY [facility] Nov 06, 2017 09:56 AM [facility] Nov 06, 2017 09:56 AM V1-PT NOT INTEREST ED IN QUIT TOBACCO USE [facility] Sep 15, 2017 02:08 PM CURRENT SMOKER reports smoking about 1/2 pack small cigars/day [facility] Radiology Reports: +/- 30 days of the [...] the Encounter. The data comes from all [place] treatment facilities. Date/Time Radiology Report Provider Source Feb 08, 2025 11:21 AM LDCT LUNG CANCER SCREENING: LISSETTE HUTCHINS [id number] -1950 M Exm Date: FEB 08, 2025@11:21 Req Phys: CHRISTI ARIAS Pat Loc: [facility] LCS CHART CONSULT (Req'g L Img Loc: [facility]/CT Service: [place] [address] (Case [id number] COMPLETE) LDCT LUNG CANCER SCREENING (CT Detailed) CPT:85304 Reason for Study: Lung Cancer screening Clinical History: 25 TPY, current Comparison: CT thorax 02/06/24 Stable 5.9 mm in greatest dimension left lower lobe subpleural solid well-rounded nodule, 8-244. 02/04/23, 02/08/22. Report Status: Verified Date Reported: FEB 08, 2025 Date Verified: FEB 08, 2025 Microbiology Analyst E-Sig:/ES/KEIRY FERRARI JR Report: Study: Lung cancer [...] reviewed. Secondary computer-aided detection with post-processing from [employer] is used. The lack of intravenous contrast [...] Primary Interpreting Staff: KEIRY FERRARI JR, Radiologist (Microbiology Analyst) /KEIRY DODD JR [facility] Encounter Notes: All associated encounter notes This section contains the clinical notes associated to the Encounter. Date/Time Encounter Note(s) Provider Source Jan 25, 2025 02:59 PM PSYCHOLOGY NOTE: LOCAL TITLE: PSYCHOLOGY NOTE STANDARD TITLE: PSYCHOLOGY NOTE DATE OF NOTE: JAN 25, 2025@14:59 ENTRY DATE: JAN 25, 2025@14:59:58 AUTHOR: EMELY PERLA COSIGNER: URGENCY: STATUS: COMPLETED VISIT DURATION 50 minutes DIAGNOSES: Depression, PTSD chronic, tobacco use disorder [employer] STATEMENT OF GOALS/CONCERNS: Nat's main concern this session: I'm depressed. My health is crap and my legs don't work. I'm having bathroom issues. I wake up crying sometimes SESSION FOCUS: Nat today reports on medical procedure that required a short hospital stay. He is in good spirits, enjoyed the stay and was well taken care of. We discuss his conflict with his son. Pray is in good spirits. Farm Assistant again asks him to consider joining a peer support group, but is ambivalent. As always, sahil brightens significantly during social/interpersonal contact. INTERVENTIONS: Psychotherapeutic Interventions: active listening, validation, Encouraging [...] emotion, and social connection created by therapy. Farm Assistant's treatment plan is to increase social engagement and use OR to increase motivation to work on anger and/or behavioral activation. Farm Assistant's strong recommendation is for Nat to attend anger management and peer support group, EBP for PTSD, or PTSD W9 program. Nat requests monthly supportive therapy check-ins. More frequent sessions are recommended to treat depression using CBT/behavioral activation, but given Nat's stated level of motivation and desire for supportive care, monthly sessions are appropriate. Pray also meets with Camila Deutsch for social [...] planned for: RTC 1 month Diagnoses: Depression ([facility] [id number]) - Major depressive disorder, single episode, unspecified (ICD-10-CM F32.9) (Primary) Procedures: Psychotherapy 38-52 min - Synchronous Telemedicine Service /caio/ Emely Perla PhD LP [facility] Coordinator and Staff Psychologist Signed: 01/27/2025 11:22 EMELY PERLA [facility]
--- OUTSIDE RECORDS SUMMARY | 2025-01-25 11:00 | XMS_ITS | Encounter Summary ---
Author Name [facility] Organization [facility] [place] Address [address] [place] [id number] Care Team Providers Care Thermodynamic Physicist Name Role Phone CHRISTI ARIAS Primary Care [...] Name Patient's Relationship to Policy [facility] ([facility]) MEDICARE ADVANTAGE [facility] ([facility]) Nov 17, 2017 NONE [id number] DARRELL HUTCHINS PATIENT [facility] ([facility]) MEDICARE ADVANTAGE [facility] ([facility]) Nov 17, 2017 [id number] DARRELL HUTCHINS PATIENT MEDICAID MEDICAID [facility] Jan 15, 2017 MEDICAI D [id number] DARRELL HUTCHINS PATIENT Selected Encounter This section includes the information on record at [place] for the Encounter. Date/Time Encounter Type Encounter Description Reason Provider Source Jan 25, 2025 03:00 PM OFFICE O/P EST HI 40 [facility] - IND ICD-10-CM F32.9 Major depressive disorder, single episode, unspecified EUGENE WORKMAN Jennifer Nmia IHJohanna Encounter Template Text not used by [place] Assessments - Encounter Diagnoses This section includes the primary and secondary diagnoses documented for the Encounter. Date/Time Primary/Secondary Diagnosis Diagnosis Name Provider Source Jan 25, 2025 04:15 PM PRIMARY Major depressive disorder, single episode, unspecified DENISSE WORKMAN SHAW Jan 25, 2025 04:15 PM SECONDARY Post-traumatic stress disorder, unspecified DENISSE WORKMAN Plan of Treatment: Future Appointments (+ 6 months) and Future Tests (+/- 45 days) The Plan of Treatment section includes [facility] care [facility] the [facility] [place] [facility]. This section includes future appointments [...] AMBULATORY - NONE [facility] [place] [facility] Feb 08, 2025 11:30 AM AMBULATORY - MEDICINE [facility] [place] [facility] Feb 10, 2025 01:00 PM AMBULATORY - PSYCHIATRY [facility] Feb 17, 2025 12:30 PM AMBULATORY - MEDICINE [place] [facility] [place] [facility] Mar 08, 2025 01:30 PM AMBULATORY - PSYCHIATRY [facility] Mar 08, 2025 02:00 PM AMBULATORY - PSYCHIATRY [facility] March 17, 2025 01:00 PM AMBULATORY - PSYCHIATRY [facility] March 18, 2025 11:30 AM AMBULATORY - MEDICINE [facility] April 04, 2025 12:30 PM AMBULATORY - MEDICINE [place] [facility] [place] [facility] April 12, 2025 02:00 PM AMBULATORY - REHAB MEDICIN E [facility] [place] [facility] April 12, 2025 02:15 PM [facility]ATORY - [facility]ICINE [facility] April 15, 2025 01:30 PM AMBULATORY - MEDICINE [facility] Apr 20, 2025 02:30 PM AMBULATORY - PSYCHIATRY [facility] May 02, 2025 01:00 PM AMBULATORY - MEDICINE [place] [facility] [place] [facility] Jun 06, 2025 02:00 PM AM[facility]ULATORY - MEDICINE [facility] Jun 13, 2025 01:00 PM [facility] Jun 14, 2025 01:00 PM AMBULATORY - PSYCHIATRY [facility] Jun 14, 2025 02:00 PM AMBULATORY - PSYCHIATRY [facility] Jul 12, 2025 01:00 PM AMBULATORY - PSYCHIATRY [facility] Jul 22, 2025 01:00 PM AMBULATORY - MEDICINE [facility] Lab Results: +/- 30 days of the encounter This section includes the Chemistry and Hematology Lab Results on record with [place] for the patient. Radiology Reports and Pathology Reports are provided separately, in subsequent sections. Lab Results This section contains the Chemistry/Hematology Results that were resulted 30 days before or 30 daysafter the date of the Encounter. Date/Time Source Result Type Result - Unit Interpretation Reference Range Specimen Type Comment Feb 17, 2025 01:36 PM [facility] HEMOGLOBIN A1C PANEL BLOOD Specimen Type: [...] Feb 17, 2025 12:49 PM Reporting Lab: [facility] [address] [address] Performing Lab: [facility] [address] HEMOGLOBIN A1C 8.7 H 4.0-5.6 Feb 17, 2025 01:36 PM [facility] MICROALBUMIN CREATININE RATIO PANEL URINE Spe cimen Type: URINE No comment entered. Ordering Provider: LAMBERTO MIKE Report Released Date/Time: Feb 17, 2025 12:49 PM Reporting Lab: [facility] [address] [facility] [address] Performing Lab: [facility] [address] [address] MICROALBUMIN/CREATININE RATIO 17.0 mg/g 0-29.9 MICROALBUMIN,QUANTITATIVE 3.6 mg/dL RR U NAVAIL CREATININE URINE 211.81 mg/dL Feb 17, 2025 01:36 PM [facility] LIPID PANEL FASTING SERUM Specimen Type: SERU M No comment entered. Ordering Provider: LAMBERTO MIKE Report Released Date/Time: Feb 17, 2025 12:49 PM Reporting Lab: [address] [address] Performing Lab: [address] [address] CHOLESTEROL 140 mg/dL TRIGLYCERIDE 108 mg/dL 0-150 LDL calculated 72 mg/dL 0-129 CHOL/HDL 3.0 HDL CHOLESTEROL 46 mg/dL 40-60 Feb 17, 2025 01:36 PM [facility] BASIC METABOLIC PANEL (fasting) SERUM Specime n Type: SERUM No comment entered. Ordering Provider: LAMBERTO MIKE Report Released Date/Time: Feb 17, 2025 12:49 PM Reporting Lab: [address] [address] Performing Lab: [address] [address] UREA NITROGEN 15 mg/dL 7-25 GLUCOSE 75 mg/dL 65-100 SODIUM 134 mmol/L L 135-145 POTASSIUM 3.9 mmol/L 3.5-5.0 CHLORIDE 105 mmol/L 100-110 CO2 22 meq/L 20-30 CALCIUM 9.3 mg/dL 8.5-10.2 CREATININE, Serum 0.87 mg/dL 0.50-1.40 eGFR(CKD-EPI 2020) >90 mL/min >60 Feb 17, 2025 01:36 PM [facility] CBC BLOOD Specimen Type: BLOOD No comment entered. Ordering Provider: LAMBERTO MIKE Report Released Date/Time: Feb 17, 2025 12:49 PM Reporting Lab: [address] [address] Performing Lab: [address] [address] WBC 10.02 10*3/uL 4.50-11.00 RBC 4.82 10*6/uL 4.23-5.66 HGB 14.7 g/dL 12.8-17 HCT 43.0 39.2-50.4 MCV 89.2 fL 82-99 MCHC 34.2 g/dL 30.8-35.1 PLT 207 10*3/uL 140-360 MPV 11.5 fL 9.2-12.4 RDW-CV 13.9 12.0-16.0 MCH 30.5 pg 26.2-32.6 Social History: Smoking Status (Most current) and [...] ed[place] Aug 24, 2021 11:30 AM VA-TOBACCO USE WI 30 MIN OF WAKE UP [place] Tobacco Use History This section includes a history of the smoking, or tobacco-related health factors, that were collected on or before the date of the Encounter. The data comes from the [place] facility where the Encounter took place. 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 [place] Aug 24, 2021 11:30 AM VA-TOBACCO USE MED [facility] Aug 24, 2021 11:30 AM VA-TOBACCO USE WI 30 MIN OF WAKEUP [place] Aug 24, 2021 11:30 AM VA-TOBACCO USER EVERY DAY [facility] May 11, 2020 09:35 AM VA-TOBACCO DOESNT USE WI 30 MIN WAKEUP [facility] May 11, 2020 09:35 AM VA-TOBACCO USE 30 YEARS OR MORE [facility] May 11, 2020 09:35 AM VA-TOBACCO USE ADVICE [facility] May 11, 2020 09:35 AM VA-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 [place] May 11, 2020 09:35 AM VA-TOBACCO USE MED NO [place] May 11, 2020 09:35 AM VA-TOBACCO USER EVERY DAY [facility] Jan 28, 2019 10:44 AM VA-TOBACCO DOESNT USE WI 30 MIN [place] [facility] Jan 28, 2019 10:44 AM VA-TOBACCO USE 5 TO 15 YEARS [facility] Jan 28, 2019 10:44 AM VA-TOBACCO USE ADVICE [place] Jan 28, 2019 10:44 AM 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 The data comes from all [place] treatment facilities. Date/Time Radiology Report Provider Source Feb 08, 2025 11:21 AM LDCT LUNG CANCER SCREENING: STANFORDNATHANIELJohannaLISSETTE POLI [id number] -[id number] M Exm Date: FEB 08, 2025@11:21 Req Phys: CHRISTI ARIAS Pat Loc: [facility] CHART CONSULT (Req'g L Img Loc: [facility]/CT Service: [place] [address] (Case [id number] COMPLETE) LDCT LUNG CANCER SCREENING (CT Detailed) CPT:42543 Reason for Study: Lung Cancer screening Clinical History: 25 TPY, current Comparison: CT thorax 02/06/24 Stable 5.9 mm in greatest dimension left lower lobe subpleural solid well-rounded nodule, 8-244. 02/04/23, 02/08/22. Report Status: Verified Date Reported: FEB 08, 2025 Date Verified: FEB 08, 2025 Foreclosure Home Inspector E-Sig:/ES/KEIRY FERRARI JR Report: Study: Lung cancer [...] reviewed. Secondary computer-aided detection with post-processing from [employer] is used. The lack of intravenous contrast [...] Primary Interpreting Staff: KEIRY FERRARI JR, Radiologist (Foreclosure Home Inspector) /KEIRY DODD JR [facility] [place] [facility] Encounter Notes: All associated encounter notes This section contains the clinical notes associated to the Encounter. Date/Time Encounter Note(s) Provider Source Jan 25, 2025 03:03 PM PSYCHIATRY NOTE: LOCAL TITLE: PSYCHIATRY NOTE STANDARD TITLE: PSYCHIATRY NOTE DATE OF NOTE: JAN 25, 2025@15:03 ENTRY DATE: JAN 25, 2025@15:03:28 AUTHOR: DENISSE WORKMAN COSIGNER: URGENCY: STATUS: COMPLETED 40 min for encounter, including chart review, interview, charting chart reviewed Patient presents as stable. Pt reports good mood. Depression much improved, denies recent depression. PTSD symptoms/irritability improved -- he feels irritablity in particular is better. Affect bright, appropriate. The patient denies SI and violent ideation. Thoughts are well organized. No paranoid or delusional content presented. Denies hallucinations. Speech normal. Cognitive exam grossly unchanged. Has interests, for example reading, he again becomes animated as he discusses his reading (described recent Paolo Barriga book he read), and enjoys his building with Legos. As with each interview, the patient clearly enjoys talking, telling stories. He again has good sense of humor. He again likes to talk about current events. Reasonable hygiene. No slowing noted. We reviewed the current psychiatric medication and the patient again has improved in terms of depression and is tolerating medication well. We decided to keep the medication the same, see below. Denies psych med side effects. Denies daytime sedation. Reports med compliance h/o heavy alcohol -- stopped over 5 yrs ago, except reports very occasional drink; denies recent cannabis; denies street drugs Pt ; Pt is close to his son, who lives w him. 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 as noted before, denies h/o psych hospitalizations; denies h/o suicide attempts or violence; denies h/o hypomanic/manic episodes Active problems - Computerized Problem List is the source for the following: see problem list in cprs Active Outpatient Medications (including Supplies): Active Outpatient [...] SENSOR DIRECTED EVERY 10 ACTIVE DAYS 7) INSULIN,ASPART(EQV-NOVLG)100UN/ML FLXPEN INJECT 20 UNITS ACTIVE SUBCUTANEOUSLY TWICE DAILY INJECT 15 MINUTES BEFORE MEALS Indication: FOR DIABETES 8) INSULIN,GLARGINE 100 UNT/ML 3ML SOLOSTAR INJECT 30 UNITS ACTIVE (S) SUBCUTANEOUSLY TWICE DAILY Indication: FOR DIABETES 9) LOPERAMIDE HCL 2MG CAP TAKE ONE CAPSULE BY MOUTH THREE TIMES ACTIVE DAILY WITH MEALS Indication: FOR DIARRHEA 10) MAGNESIUM OXIDE 420MG TAB TAKE ONE TABLET BY MOUTH ONCE ACTIVE DAILY Indication: FOR MAGNESIUM SUPPLEMENTATION 11) MELATONIN 1MG CAP/TAB TAKE SIX CAPSULE/TABLET BY MOUTH AT ACTIVE BEDTIME NEEDED INSOMNIA Indication: FOR INSOMNIA 12) MIRTAZAPINE 30MG TAB TAKE ONE TABLET BY MOUTH AT BEDTIME FOR ACTIVE DEPRESSION/MOOD 13) MUPIROCIN 2% OINT APPLY THIN LAYER TOPICALLY EVERY OTHER ACTIVE DAYS Indication: FOR SKIN INFECTION 14) NEEDLE,PEN 31G,5MM USE 1 NEEDLE SUBCUTANEOUSLY FOUR TIMES A ACTIVE DAY FOR USE WITH PEN DEVICE 15) SEMAGLUTIDE 0.25MG/0.375ML INJ PEN 3ML INJECT 0.5MG ACTIVE SUBCUTANEOUSLY ONCE A WEEK Indication: FOR TYPE 2 DIABETES MELLITUS 16) TOPIRAMATE 25MG TAB TAKE ONE TABLET BY MOUTH TWICE DAILY ACTIVE NEEDED FOR ANXIETY/HEADACHE (OFF LABEL FOR ANXIETY) 17) UREA 10% LOTION APPLY MODERATE AMOUNT TOPICALLY TWICE DAILY ACTIVE *FOR EXTERNAL USE ONLY* Indication: FOR DRY SKIN Active Non-VA Medications Status 1) Non-VA ASPIRIN [...] TAB BY MOUTH ACTIVE 24 Total Medications PSYCHIATRIC MEDICATION HISTORY: amitryptiline -- [...] witnessed this, pt ound him 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 See C-SSRS 09/2024. The patient denies suicidal and violent ideation (but has past history of intermittent suicidal ideation, without plan or intent). The pt is probably low risk for suicide or violence, but the [facility] Crisis Line information and number were reviewed w patient as a precaution. The patient also understands to call 911 or to go to ER in the event of an emergency. Pt has safety plan (see 05/04/24), as a precaution, patient has copy and reviewed with patient again today. Patient again wears a wristband with the crisis number. The patient also understands to call 911 or to go to ER in the event of an emergency. Again note that the patient is active with some of the internal coping strategies on safety plan as part of his usual routine. Also, see Dr. Perla 05/04/24 and susequent notes. Also I agree with [...] his son is a significant protective factor. continue psychotherapy w Dr Perla, and supportive sessions w Camila Again, aee [...] change in Remeron today because pt doing well, and he does not want med change. Also see below for more discussion. CONTINUE CYMBALTA 60 MG DAILY for depression, significant improvement -patient does not feel he needs dose increase. Note that patient appears to have better response to Cymbalta than the previous Zoloft. Pt requests increase cymbalta to 60 day supply to decrease risk of missing medciation if mail is slow and to avoid w/d syndrome (wh I reviewed w pt) - benefits of 60 day supply outweigh risks CONTINUE REMERON 30 MG QHS to augment [...] also included discussion of potential drug interactions associatedwith psychiatric medication. The patient discussed/verbalized back the [...] this point. Reviewed with my colleagues Dr. Loepz and Dr Camacho about this and agrees [...] feels benefits outweigh risks, which is reasonable. note that pt has meals on wheels -- wh he likes Spoke previously with Audrey MCKOY [phone] Depression Monitoring (PHQ-9): PHQ-9 A PHQ-9 screen was performed. The score was 3. 1. Little interest or pleasure in doing things Not at all 2. Feeling down, depressed, or hopeless Several days 3. Trouble falling or staying asleep, or sleeping too much Several days 4. Feeling tired or having little energy Several days 5. Poor appetite or overeating Not at all 6. Feeling bad about yourself or that you are a failure or have let yourself or your family down Not at all 7. Trouble concentrating on things, such as reading the newspaper or watching television Not at all 8. Moving or speaking so slowly that other people could have noticed. Or the opposite being so fidgety or restless that you have been moving around a lot more than usual Not at all 9. Thoughts that you would be better off or of hurting yourself in some way Not at all 10. If you checked off any problems, how DIFFICULT have these problems made it for you to do your work, take care of things at home or get along with other people? Not difficult at all Medication Reconciliation: Outpatient: Has the patient been taking medications as documented in the EMLR? YES: The patient has been taking medications as documented in the EMLR. Essential Medication List for Review used to complete this medication reconciliation. INCLUDED IN THIS LIST: Alphabetical list of active outpatient prescriptions [facility] this [facility]) and dispensed from another [place] or [facility] facility (remote) as well as [...] /caio/ DENISSE WORKMAN MD STAFF PSYCHIATRIST Signed: 01/25/2025 16:15 DENISSE WORKMAN
--- OUTSIDE RECORDS SUMMARY | 2025-01-26 11:13 | XMS_ITS | Encounter Summary ---
Author Name [facility] [facility] [place] [facility] [place] Address [address] [place] [id number] Care Team Providers Care Side Splitter Name Role Phone CHRISTI ARIAS Primary Care [...] Name Patient's Relationship to Policy [facility] (WNR) MEDICARE ADVANTAGE [facility] Nov 17, 2017 NONE [id number] DARRELL NAVARRO PATIENT [facility] (WNR) MEDICARE ADVANTAGE [facility] (WNR) Nov 17, 2017 [id number] DARRELL NAVARRO PATIENT MEDICAID MEDICAID [facility] Jan 15, 2017 MEDICAI D [id number] DARRELL NAVARRO PATIENT Selected Encounter This section includes the information on record at [place] for the Encounter. Date/Time Encounter Type Encounter Description Reason Pro vider Source Jan 26, 2025 03:13 PM Outpatient Encounter ADMIN PAT ACTIVTIES (MASNONCT) IHE Encounter Template Text not used by [place] Plan of Treatment: Future Appointments (+ 6 months) and Future Tests (+/- 45 days) The Plan of Treatment section includes future care activities for the patient [facility] [place] [facility] This section includes future appointments and future orders which are active, pending or scheduled. Future Appointments This section includes appointments that were scheduled to occur 6 months from the date of the Encounter, up to a maximum of 20 appointments. The data comes from all [place] treatment [facility]. Appointment Date/Time Appointment Type Appointme nt Facility Name Feb 08, 2025 11:15 AM [facility]UL[facility] NONE [facility] [place] [facility] Feb 08, 2025 11:30 AM [place] [facility] [place] [facility] Feb 10, 2025 01:00 PM AMBULATORY - PSYCHIATRY [facility] Feb 17, 2025 12:30 PM [place] [facility] [place] [facility] Mar 08, 2025 01:30 PM AMBULATORY - PSYCHIATRY [facility] Mar 08, 2025 02:00 PM AMBULATORY - PSYCHIATRY [facility] March 17, 2025 01:00 PM AMBULATORY - PSYCHIATRY [facility] March 18, 2025 11:30 AM AMBULATORY - MEDICINE [facility] April 04, 2025 12:30 PM [place] [facility] [place] [facility] April 12, 2025 02:00 PM AMBULATORY - REHAB MEDICIN [facility] [place] [facility] April 12, 2025 02:15 PM AMBULATORY - MEDICINE [facility] April 15, 2025 01:30 PM AMBULATORY - MEDICINE [facility] Apr 20, 2025 02:30 PM AMBULATORY - PSYCHIATRY [facility] May 02, 2025 01:00 PM [place] [facility] [place] [facility] Jun 06, 2025 02:00 PM AMBULATORY - MEDICINE [facility] Jun 13, 2025 01:00 PM [place] [facility] [place] [facility] Jun 14, 2025 01:00 PM AMBULATORY - PSYCHIATRY [facility] Jun 14, 2025 02:00 PM AMBULATORY - PSYCHIATRY [facility] Jul 12, 2025 01:00 PM AMBULATORY - PSYCHIATRY [facility] Jul 22, 2025 01:00 PM [facility] Lab Results: +/- 30 days of the encounter This section includes the Chemistry and Hematology Lab Results on record with [place] for the patient. Radiology Reports and Pathology Reports are provided separately, in subsequent sections. Lab Results This section contains the Chemistry/Hematology Results that were resulted 30 days before or 30 daysafter the date of the Encounter. Date/Time Source Result Type Result - Unit Interpretation Reference Range Specimen Type Comment Feb 17, 2025 01:36 PM [facility] HEMOGLOBIN A1C PANEL BLOOD Specimen Type: [...] Feb 17, 2025 12:49 PM Reporting Lab: [address] [address] Performing Lab: [address] [address] HEMOGLOBIN A1C 8.7 H 4.0-5.6 Feb 17, 2025 01:36 PM [facility] MICROALBUMIN CREATININE RATIO PANEL URINE Spe cimen Type: URINE No comment entered. Ordering Provider: LAMBERTO MIKE Report Released Date/Time: Feb 17, 2025 12:49 PM Reporting Lab: [address] [address] Performing Lab: [address] [address] MICROALBUMIN/CREATININE RATIO 17.0 mg/g 0-29.9 MICROALBUMIN,QUANTITATIVE 3.6 mg/dL RR U NAVAIL CREATININE URINE 211.81 mg/dL Feb 17, 2025 01:36 PM [facility] BASIC METABOLIC PANEL (fasting) SERUM Specime n Type: SERUM No comment entered. Ordering Provider: LAMBERTO MIKE Report Released Date/Time: Feb 17, 2025 12:49 PM Reporting Lab: [facility] [address] [facility] [address] Performing Lab: [address] [address] UREA NITROGEN 15 mg/dL 7-25 GLUCOSE 75 mg/dL 65-100 SODIUM 134 mmol/L L 135-145 POTASSIUM 3.9 mmol/L 3.5-5.0 CHLORIDE 105 mmol/L 100-110 CO2 22 meq/L 20-30 CALCIUM 9.3 mg/dL 8.5-10.2 CREATININE, Serum 0.87 mg/dL 0.50-1.40 eGFR(CKD-EPI 2020) >90 mL/min >60 Feb 17, 2025 01:36 PM [facility] LIPID PANEL FASTING SERUM Specimen Type: SERU M No comment entered. Ordering Provider: LAMBERTO MIKE Report Released Date/Time: Feb 17, 2025 12:49 PM Reporting Lab: [address] [address] Performing Lab: [address] [address] CHOLESTEROL 140 mg/dL TRIGLYCERIDE 108 mg/dL 0-150 LDL calculated 72 mg/dL 0-129 CHOL/HDL 3.0 HDL CHOLESTEROL 46 mg/dL 40-60 Feb 17, 2025 01:36 PM [facility] CBC BLOOD Specimen Type: BLOOD No comment entered. Ordering Provider: LAMBERTO MIKE Report Released Date/Time: Feb 17, 2025 12:49 PM Reporting Lab: [address] [address] Performing Lab: [address] [address] WBC 10.02 10*3/uL 4.50-11.00 RBC 4.82 10*6/uL [...] and tobacco- related health factors from the [place] facility where the Encounter took place. Current Smoking Status This section includes the most current smoking, or tobacco-related health factor, from the [place] facility where the Encounter took place. Date/Time Current Smoking Status Comment Facil ity May 06, 2024 10:30 AM VA-TOBACCO DOESNT USE WI 30 MIN WAKEUP [place] [facility] [place] [facility] Tobacco Use History This section includes a history of the smoking, or tobacco-related health factors, that were collected on or before the date of the Encounter. The data comes from the [place] facility where the Encounter took place. Date/Time Smoking Status/Tobacco Use Comment F acility May 06, 2024 10:30 AM VA-TOBACCO USE 30 YEARS OR MORE [facility] [place] [facility] May 06, 2024 10:30 AM VA-TOBACCO USE ADVICE [facility] [place] [facility] May 06, 2024 10:30 AM VA-TOBACCO USE FORK OPERATOR NO [facility] [place] [facility] May 06, 2024 10:30 AM VA-TOBACCO USE MED NO [facility] [place] [facility] May 06, 2024 10:30 AM VA-TOBACCO USER EVERY DAY [facility] [place] [facility] Dec 20, 2022 02:06 PM VA-TOBACCO USE 5 TO 15 YEARS [facility] [place] [facility] Dec 20, 2022 02:06 PM VA-TOBACCO USE ADVICE [facility] [place] [facility] Dec 20, 2022 02:06 PM VA-TOBACCO USE FORK OPERATOR NO [facility] [place] [facility] Dec 20, 2022 02:06 PM VA-TOBACCO USE MED NO [facility] [place] [facility] Dec 20, 2022 02:06 PM VA-TOBACCO USE WI 30 MIN OF WAKEUP [facility] [place] [facility] Dec 20, 2022 02:06 PM VA-TOBACCO USER EVERY DAY [facility] Radiology Reports: +/- 30 days of the [...] the Encounter. The data comes from all [place] treatment facilities. Date/Time Radiology Report Provider Source Feb 08, 2025 11:21 AM LDCT LUNG CANCER SCREENING: LISSETTE NAVARRO [id number] -[id number] M Exm Date: FEB 08, 2025@11:21 Req Phys: CHRISTI ARIAS Loc: [facility] LCS CHART CONSULT (Req'g L Img Loc: [facility]/CT Service: Unknown [facility] [place] [address] (Case [id number] COMPLETE) LDCT LUNG CANCER SCREENING (CT Detailed) CPT:14751 Reason for Study: Lung Cancer screening Clinical History: 25 TPY, current Comparison: CT thorax 02/06/24 Stable 5.9 mm in greatest dimension left lower lobe subpleural solid well-rounded nodule, 8-244. 02/04/23, 02/08/22. Report Status: Verified Date Reported: FEB 08, 2025 Date Verified: FEB 08, 2025 Academic Dean E-Sig:/ES/KEIRY FERRARI JR Report: Study: Lung cancer [...] reviewed. Secondary computer-aided detection with post-processing from Path[employer]To is used. The lack of intravenous contrast [...] Primary Interpreting Staff: KEIRY FERRARI JR, Radiologist (Academic Dean) /KEIRY DODD JR [facility] Encounter Notes: All associated encounter notes This section contains the clinical notes associated to the Encounter. Date/Time Encounter Note(s) Provider Source Jan 26, 2025 03:13 PM PHARMACY OUTPATIEN T MEDICATION MGT NOTE: LOCAL TITLE: PHARMACY OUTPATIENT MEDICATION NOTE STANDARD TITLE: PHARMACY OUTPATIENT MEDICATION MGT NOTE DATE OF NOTE: JAN 26, 2025@15:13 ENTRY DATE: JAN 26, 2025@15:14:03 AUTHOR: ADAMA MCDUFFIE COSIGNER: URGENCY: STATUS: COMPLETED Mr. Navarro had called and spoken to someone earlier and said he never got his semaglutide that showed as delivered. He called back and said the he did find it, buried in a refrigerator drawer /caio/ ADAMA MCDUFFIE PHARMD CLINICAL PHARMACIST Signed: 01/26/2025 15:15 ADAMA MCDUFFIE [facility]
--- OUTSIDE RECORDS SUMMARY | 2025-02-08 07:30 | XMS_ITS ---
Author Name [facility] [place] [facility] [place] Address [address] [place] [id number] Care Team Providers Care Logistics Intern Name Role Phone CHRISTI ARIAS Primary Care [...] Patient's Relationship to Policy [facility] ([facility]) MEDICARE ADVANTAGE [facility] ([facility]) Nov 17, 2017 NONE [id number] DARRELL HUTCHINS PATIENT [facility] ([facility]) MEDICARE ADVANTAGE [facility] ([facility]) Nov 17, 2017 [id number] DARRELL HUTCHINS PATIENT MEDICAID MEDICAID [facility] Jan 15, 2017 MEDICAI D [id number] DARRELL HUTCHINS PATIENT Selected Encounter This section includes the information on record at [place] for the Encounter. Date/Time Encounter Type Encounter Description Reason Provider Source Feb 08, 2025 11:30 AM COMPRE OPH EXAM EST PT 1/> OPTOMETRY ICD-10-CM E11.9 Type 2 diabetes mellitus without complications SARA ZAPATA E Encounter Template Text not used by [place] Assessments - Encounter Diagnoses This section includes the primary and secondary diagnoses documented for the Encounter. Date/Time Primary/Secondary Diagnosis Diagnosis Name Provider Source Feb 08, 2025 01:02 PM PRIMARY Type 2 diabetes mellitus without complications SARA ZAPATA [place] [facility] [place] [facility] Feb 08, 2025 01:02 PM SECONDARY Presence of intraocular lens SARA ZAPATA [place] [facility] [place] [facility] Feb 08, 2025 01:02 PM SECONDARY Unspecified disorder of refraction SARA ZAPATA [place] [facility] [place] [facility] Plan of Treatment: Future Appointments (+ 6 months) and Future Tests (+/- 45 days) The Plan of Treatment section includes future care activities for the patient from [facility] [place] [facility]. This section includes future appointments and future orders which are active, pending or scheduled. Future Appointments This section includes appointments that were scheduled to occur 6 months from the date of the Encounter, up to a maximum of 20 appointments. The data comes from all [place] treatment facilities. Appointment Date/Time Appointment Type Appointme nt Facility Name Feb 10, 2025 01:00 PM AMBULATORY - PSYCHIATRY [facility] Feb 17, 2025 12:30 PM AMBULATORY - MEDICINE [place] [facility] [place] [facility] Mar 08, 2025 01:30 PM AMBULATORY - PSYCHIATRY [facility] Mar 08, 2025 02:00 PM AMBULATORY - PSYCHIATRY [facility] March 17, 2025 01:00 PM AMBULATORY - PSYCHIATRY [facility] March 18, 2025 11:30 AM AM[facility]ULATORY - MEDICINE [facility] April 04, 2025 12:30 PM AMBULATORY - MEDICINE [place] [facility] [place] [facility] April 12, 2025 02:00 PM AMBULATORY - [place] [facility] [place] [facility] April 12, 2025 02:15 PM [facility]ATORY - [facility]ICINE [facility] April 15, 2025 01:30 PM AMBULATORY - MEDICINE [facility] Apr 20, 2025 02:30 PM AMBULATORY - PSYCHIATRY [facility] May 02, 2025 01:00 PM AMBULATORY - MEDICINE [place] [facility] [place] [facility] Jun 06, 2025 02:00 PM AM[facility]ULATORY - [facility]ICINE [facility] Jun 13, 2025 01:00 PM [facility] Jun 14, 2025 01:00 PM AMBULATORY - PSYCHIATRY [facility] Jun 14, 2025 02:00 PM AMBULATORY - PSYCHIATRY [facility] Jul 12, 2025 01:00 PM AMBULATORY - PSYCHIATRY [facility] Jul 22, 2025 01:00 PM AMBULATORY - MEDICINE [facility] Jul 29, 2025 01:30 PM AMBULATORY - PSYCHIATRY [facility] Lab Results: +/- 30 days of the encounter This section includes the Chemistry and Hematology Lab Results on record with [place] for the patient. Radiology Reports and Pathology Reports are provided separately, in subsequent sections. Lab Results This section contains the Chemistry/Hematology Results that were resulted 30 days before or 30 daysafter the date of the Encounter. Date/Time Source Result Type Result - Unit Interpretation Reference Range Specimen Type Comment Feb 17, 2025 01:36 PM [facility] LIPID PANEL FASTING SERUM Specimen Type: SERUM No comment entered. Ordering Provider: LAMBERTO MIKE Report Released Date/Time: Feb 17, 2025 12:49 PM Reporting Lab: [address] [address] Performing Lab: [address] [address] CHOLESTEROL 140 mg/dL TRIGLYCERIDE 108 mg/dL 0-150 LDL calculated 72 mg/dL 0-129 CHOL/HDL 3.0 HDL CHOLESTEROL 46 mg/dL 40-60 Feb 17, 2025 01:36 PM [facility] HEMOGLOBIN A1C PANEL BLOOD Specimen Type: BLO OD Comment: Values obtained from A1C measurements can vary. For atypical A1C assays, a reported value of 7.0 could actually be between 6.72 and 7.28 if measured by a reference method. A reported value of 9.0 could actually be between 8.73 and 9.27. Ref: http://www.ngsp.org/CAPdata.asp Ordering Provider: LAMBERTO MIKE Report Released Date/Time: Feb 17, 2025 12:49 PM Reporting Lab: [address] [address] [facility] [address] HEMOGLOBIN A1C 8.7 H 4.0-5.6 Feb 17, 2025 01:36 PM [facility] BASIC METABOLIC PANEL (fasting) SERUM Specime n Type: SERUM No comment entered. Ordering Provider: LAMBERTO MIKE Report Released Date/Time: Feb 17, 2025 12:49 PM Reporting [facility] [address] Performing Lab: [address] [address] UREA NITROGEN 15 mg/dL 7-25 GLUCOSE 75 mg/dL 65-100 SODIUM 134 mmol/L L 135-145 POTASSIUM 3.9 mmol/L 3.5-5.0 CHLORIDE 105 mmol/L 100-110 CO2 22 meq/L 20-30 CALCIUM 9.3 mg/dL 8.5-10.2 CREATININE, Serum 0.87 mg/dL 0.50-1.40 eGFR(CKD-EPI 2020) >90 mL/min >60 Feb 17, 2025 01:36 PM [facility] MICROALBUMIN CREATININE RATIO PANEL URINE Spe cimen Type: URINE No comment entered. Ordering Provider: LAMBERTO MIKE Report Released Date/Time: Feb 17, 2025 12:49 PM Reporting Lab: [address] [address] Performing Lab: [address] [address] MICROALBUMIN/CREATININE RATIO 17.0 mg/g 0-29.9 MICROALBUMIN,QUANTITATIVE 3.6 mg/dL RR U NAVAIL CREATININE URINE 211.81 mg/dL Feb 17, 2025 01:36 PM [facility] CBC BLOOD Specimen Type: BLOOD No comment entered. Ordering Provider: LAMBERTO MIKE Report Released Date/Time: Feb 17, 2025 12:49 PM Reporting Lab: [address] [address] Performing Lab: [facility] [place] [facility] [address] [facility] [address] WBC 10.02 10*3/uL 4.50-11.00 RBC 4.82 10*6/uL [...] and tobacco- related health factors from the [place] facility where the Encounter took place. Current Smoking Status This section includes the most current smoking, or tobacco-related health factor, from the [place] facility where the Encounter took place. Date/Time Current Smoking Status Comment Facil ity May 06, 2024 10:30 AM VA-TOBACCO USER EVERY DAY [place] [facility] [place] [facility] Tobacco Use History This section includes a history of the smoking, or tobacco-related health factors, that were collected on or before the date of the Encounter. The data comes from the [place] facility where the Encounter took place. 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 [facility] [place] [facility] May 06, 2024 10:30 AM VA-TOBACCO USE MED NO [facility] [place] [facility] May 06, 2024 10:30 AM VA-TOBACCO USER EVERY DAY [facility] [place] [facility] Dec 20, 2022 02:06 PM VA-TOBACCO USE 5 TO 15 YEARS [facility] [place] [facility] Dec 20, 2022 02:06 PM VA-TOBACCO USE ADVICE [facility] Dec 20, 2022 02:06 PM VA-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 The data comes from all [place] treatment facilities. Date/Time Radiology Report Provider Source Feb 08, 2025 11:21 AM LDCT LUNG CANCER SCREENING: LISSETTE HUTCHINS [id number] -[id number] M Exm Date: FEB 08, 2025@11:21 Req Phys: CHRISTI ARIAS Loc: [facility] LCS CHART CONSULT (Req'g L Img Loc: [facility]/CT Service: Unknown [facility] [place] [address] (Case [id number] COMPLETE) LDCT LUNG CANCER SCREENING (CT Detailed) CPT:38818 Reason for Study: Lung Cancer screening Clinical History: 25 TPY, current Comparison: CT thorax 02/06/24 Stable 5.9 mm in greatest dimension left lower lobe subpleural solid well-rounded nodule, 8-244. 02/04/23, 02/08/22. Report Status: Verified Date Reported: FEB 08, 2025 Date Verified: FEB 08, 2025 Senior Information Developer E-Sig:/ES/KEIRY FERRARI JR Report: Study: Lung cancer [...] reviewed. Secondary computer-aided detection with post-processing from [employer] is used. The lack of intravenous contrast [...] Primary Interpreting Staff: KEIRY FERRARI JR, Radiologist (Senior Information Developer) /KEIRY DODD JR [place] [facility] [place] [facility] Encounter Notes: All associated encounter notes This section contains the clinical notes associated to the Encounter. Date/Time Encounter Note(s) Provider Source Feb 08, 2025 01:03 PM ADDENDUM: LOCAL TITLE: Addendum STANDARD TITLE: ADDENDUM DATE OF NOTE: FEB 08, 2025@13:03:03 ENTRY DATE: FEB 08, 2025@13:03:04 AUTHOR: JOSEE ZAPATA COSIGNER: URGENCY: STATUS: COMPLETED Please order the following bifocals: RX INFORMATION OD + 1.25-1.50 X95 Add:+2.50 Pzm:0.00 Dir: Prz2:0.00 Dir2: OS + 1.50-1.25 X80 Add:+2.50 Pzm:0.00 Dir: Prz2:0.00 Dir2: FITTING INFORMATION FPD:62.5 NPD:59.5 [place]:R: L: SEG HT:R:18 L:18 Tint:None Shade:None [place] Billable Items FRAME: [facility] [id number] Right Lens: POLY BIFOCAL FT28 PHOTOCHROMIC WARNER 1.586 POLY Left Lens: POLY BIFOCAL FT28 PHOTOCHROMIC WARNER 1.586 POLY KLEAR ANTI-REFLECTIVE COATING /es/ JOSEE ZAPATA OD STAFF W[employer]OW [employer] SEWER Signed: 02/08/2025 13:04 Receipt Acknowledged By: 02/08/2025 14:03 /caio/ Joan Gill [facility] C Unix Developer --- Original Document --- 02/08/25 OPTOMETRY NOTE(T): Active Problems: Active Problem Cellulitis and abscess of lower leg 05/09/2024 CHRISTI ARIAS Heart murmur R01.1 05/09/2024 CHRISTI ARIAS Cardiac arrhythmia I49.9 05/09/2024 CHRISTI ARIAS Actinic keratosis L57.0 05/09/2024 CHRISTI ARIAS Headache R51.9 05/09/2024 CHRISTI ARIAS Insomnia G47.00 05/09/2024 CHRISTI ARIAS Unsteady gait R26.89 05/09/2024 CHRISTI ARIAS Vitamin D Deficiency ([facility] [id number]) 05/09/2024 CHRISTI ARIAS Vitamin B12 Deficiency ([facility] [id number] 05/09/2024 CHRISTI ARIAS Diarrhea R19.7 05/09/2024 CHRISTI ARIAS CAD - Coronary Artery Disease (SCT 08/29/2023 CHRISTI ARIAS Pain of left knee joint M25.562 08/29/2023 CHRISTI ARIAS Tobacco user Z72.0 08/29/2023 CHRISTI ARIAS Peripheral venous insufficiency I87 08/29/2023 CHRISTI ARIAS Onychomycosis B35.1 08/29/2023 CHRISTI ARIAS History of cholecystectomy Z90.49 12/21/2022 CHRISTI ARIAS Chronic back pain M54.50 05/09/2024 CHRISTI ARIAS Neck pain M54.2 12/21/2022 CHRISTI ARIAS Co-Management R69. 06/12/2020 KATY ROBERTO Depression ([facility] [id number]) F32.9 11/27/2021 DENISSE WORKMAN Hyperglycemia due to type 2 diabete 07/04/2020 FLORENCIO TREVINO Hyperlipidemia E78.5 09/19/2017 FLORENCIO TREVINO Essential hypertension I10. 09/19/2017 FLORENCIO TREVINO Neuropathy due to type 2 diabetes m 09/19/2017 FLORENCIO TREVINO Posttraumatic stress disorder F43.1 11/27/2021 FLORENCIO TREVINO Medications ([place]): Active Outpatient Medications (including Supplies): Active Outpatient Medications Status = 1) ALCOHOL PREP PAD USE 1 PAD [...] FOR DRY SKIN Active Non-VA Medications Status = 1) Non-VA ASPIRIN 81MG EC TAB 81MG [...] TAB BY MOUTH ACTIVE 24 Total Medications Allergies: Patient has answered NKA S: 75-year-old male is in for annual follow-up and wears bifocals as needed. He is status post CE with PCL OU with Dr. Nina about 2 years ago. He denies any eye injury or disease since his last exam. HARSHAD: 02/06/2024 (-) Pain: (-) NAIK: (-) Diplopia: (-) Flashes: (-) Floaters: (-) Amaurosis Fugax/Tia's: (-) Eye Injury: (+) Eye Surgery: CE with PCL OU (-) TBI Last HbA1c: 10/25/2024 9.4% O: Visual acuity without correction was 20/30+ both eyes. Pupils were equal and round and reactive to light with no afferent defect. Extraocular muscles were intact and facial confrontation perez were full. Lids and lashes were clear both eyes. Corneas and conjunctiva were clear both eyes. Anterior chambers were deep clear and quiet with open angles. Iris was flat both eyes without neovascularization. Posterior chamber lenses were in place and clear OU. Current Rx with last BCVA: OD:+1.25-1.25 x 095 20/20 OS:+1.25-1.00 x 080 20/20 Add:+2.50 Refraction: OD:+ 1.50 - 1.50 x 095 20/20 - OS:+ 1.50-1.25 x 080 20/20 - Add:+2.50 Intraocular pressures at 11:40 AM were 14 mmHg OU. Dilating Drops: 1GTT 1 % Tropicamide OU & 1GTT 2.5% Phenylephrine OU (Pt. ed. on side effects, dilation warning given and verbal consent obtained) Patient advised not to drive if they feel they have any symptoms which could affect their ability to drive safely. Patient advised not to engage in any activities which could put themselves or others at risk if they feel they have any symptoms which could affect their ability to perform those activities safely. Vitreous was clear OU. Approximately 30% horizontal and vertical cupping was seen OU with healthy rims and margins and no neovascularization. Normal pigmentary architecture of the macula was seen OU without lipid or edema. A 2 third artery to vein ratio was seen OU. Retinal periphery's were intact in all quadrants OU without holes breaks or tears and no retinopathy. 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 Pseudophakia OU. History of dry eyes without complaints today. Refraction disorder P: Ordered bifocals with photo chromic lenses for glare sensitivity. The patient will return in 12 months or sooner if any problems arise. W[place]rop Education: After discussion and answering all 's questions, [place] demonstrated and verbalized understanding of diagnosis and treatment. Yes [x] No [ ] Patient Education: Diabetes: Patient was educated regarding diabetes and related ocular complications including retinopathy and cataract formation as well as other related systemic complications. The importance of good blood sugar control, blood sugar testing as recommended by their PCP and the importance of timely follow up were all emphasized. Medication Reconciliation: Outpatient: Has the patient been [...] with a VA or non-VA provider. /caio/ JOSEE ZAPATA OD STAFF [employer] SEWER Signed: 02/08/2025 13:02 JOSEE ZAPATA [place] [facility] [place] [facility] Feb 08, 2025 07:52 AM OPTOMETRY NOTE: LOCAL TITLE: OPTOMETRY NOTE(T) STANDARD TITLE: OPTOMETRY NOTE DATE OF NOTE: FEB 08, 2025@07:52 ENTRY DATE: FEB 08, 2025@07:52:04 AUTHOR: JOSEE ZAPATA COSIGNER: URGENCY: STATUS: COMPLETED OPTOMETRY NOTE(T) Has ADDENDA Active Problems: Active Problem Cellulitis and abscess of lower leg 05/09/2024 CHRISTI ARIAS Heart murmur R01.1 05/09/2024 CHRISTI ARIAS Cardiac arrhythmia I49.9 05/09/2024 CHRISTI ARIAS Actinic keratosis L57.0 05/09/2024 CHRISTI ARIAS Headache R51.9 05/09/2024 CHRISTI ARIAS Insomnia G47.00 05/09/2024 CHRISTI ARIAS Unsteady gait R26.89 05/09/2024 CHRISTI ARIAS Vitamin D Deficiency ([facility] [id number]) 05/09/2024 CHRISTI ARIAS Vitamin B12 Deficiency ([facility] [phone] 05/09/2024 CHRISTI ARIAS Diarrhea R19.7 05/09/2024 JOÃO ARIASKA M CAD - Coronary Artery Disease (SCT 08/29/2023 CHRISTI ARIAS Pain of left knee joint M25.562 08/29/2023 CHRISTI ARIAS Tobacco user Z72.0 08/29/2023 CHRISTI ARIAS Peripheral venous insufficiency I87 08/29/2023 CHRISTI ARIAS Onychomycosis B35.1 08/29/2023 CHRISTI ARIAS History of cholecystectomy Z90.49 12/21/2022 CHRISTI ARIAS Chronic back pain M54.50 05/09/2024 CHRISTI ARIAS Neck pain M54.2 12/21/2022 CHRISTI ARIAS Co-Management R69. 06/12/2020 KATY ROBERTO Depression ([facility] [id number]) F32.9 11/27/2021 DENISSE WORKMAN Hyperglycemia due to type 2 diabete 07/04/2020 FLORENCIO TREVINO Hyperlipidemia E78.5 09/19/2017 FLORENCIO TREVINO Essential hypertension I10. 09/19/2017 FLORENCIO TREVINO Neuropathy due to type 2 diabetes m 09/19/2017 FLORENCIO TREVINO Posttraumatic stress disorder F43.1 11/27/2021 FLORENCIO TREVINO Medications ([place]): Active Outpatient Medications (including Supplies): Active Outpatient Medications Status = 1) ALCOHOL PREP PAD USE 1 PAD [...] FOR DRY SKIN Active Non-VA Medications Status = 1) Non-VA ASPIRIN 81MG EC TAB 81MG [...] TAB BY MOUTH ACTIVE 24 Total Medications Allergies: Patient has answered NKA S: 75-year-old male is in for annual follow-up and wears bifocals as needed. He is status post CE with PCL OU with Dr. Nina about 2 years ago. He denies any eye injury or disease since his last exam. HARSHAD: 02/06/2024 (-) Pain: (-) NAIK: (-) Diplopia: (-) Flashes: (-) Floaters: (-) Amaurosis Fugax/Tia's: (-) Eye Injury: (+) Eye Surgery: CE with PCL OU (-) TBI Last HbA1c: 10/25/2024 9.4% O: Visual acuity without correction was 20/30+ both eyes. Pupils were equal and round and reactive to light with no afferent defect. Extraocular muscles were intact and facial confrontation perez were full. Lids and lashes were clear both eyes. Corneas and conjunctiva were clear both eyes. Anterior chambers were deep clear and quiet with open angles. Iris was flat both eyes without neovascularization. Posterior chamber lenses were in place and clear OU. Current Rx with last BCVA: OD:+1.25-1.25 x 095 20/20 OS:+1.25-1.00 x 080 20/20 Add:+2.50 Refraction: OD:+ 1.50 - 1.50 x 095 20/20 - OS:+ 1.50-1.25 x 080 20/20 - Add:+2.50 Intraocular pressures at 11:40 AM were 14 mmHg OU. Dilating Drops: 1GTT 1 % Tropicamide OU & 1GTT 2.5% Phenylephrine OU (Pt. ed. on side effects, dilation warning given and verbal consent obtained) Patient advised not to drive if they feel they have any symptoms which could affect their ability to drive safely. Patient advised not to engage in any activities which could put themselves or others at risk if they feel they have any symptoms which could affect their ability to perform those activities safely. Vitreous was clear OU. Approximately 30% horizontal and vertical cupping was seen OU with healthy rims and margins and no neovascularization. Normal pigmentary architecture of the macula was seen OU without lipid or edema. A 2 third artery to vein ratio was seen OU. Retinal periphery's were intact in all quadrants OU without holes breaks or tears and no retinopathy. 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 Pseudophakia OU. History of dry eyes without complaints today. Refraction disorder P: Ordered bifocals with photo chromic lenses for glare sensitivity. The patient will return in 12 months or sooner if any problems arise. [place] Education: After discussion and answering all 's questions, demonstrated and verbalized understanding of diagnosis and treatment. Yes [x] No [ ] Patient Education: Diabetes: Patient was educated regarding diabetes and related ocular complications including retinopathy and cataract formation as well as other related systemic complications. The importance of good blood sugar control, blood sugar testing as recommended by their PCP and the importance of timely follow up were all emphasized. Medication Reconciliation: Outpatient: Has the patient been [...] with a VA or non-VA provider. /caio/ JOSEE ZAPATA OD STAFF W[employer] CL[employer] SEWER Signed: 02/08/2025 13:02 02/08/2025 ADDENDUM STATUS: COMPLETED Please order the following bifocals: RX INFORMATION OD + 1.25-1.50 X95 Add:+2.50 Pzm:0.00 Dir: Prz2:0.00 Dir2: OS + 1.50-1.25 X80 Add:+2.50 Pzm:0.00 Dir: Prz2:0.00 Dir2: FITTING INFORMATION FPD:62.5 NPD:59.5 [place]:R: L: SEG HT:R:18 L:18 Tint:None Shade:None [place] Billable Items FRAME: [facility] [id number] Right Lens: POLY BIFOCAL FT28 PHOTOCHROMIC WARNER 1.586 POLY Left Lens: POLY BIFOCAL FT28 PHOTOCHROMIC WARNER 1.586 POLY KLEAR ANTI-REFLECTIVE COATING /caio/ JOSEE ZAPATA OD STAFF W[employer] SEWER Signed: 02/08/2025 13:04 Receipt Acknowledged By: 02/08/2025 14:03 /caio/ Joan [facility] C Unix Developer 02/08/2025 ADDENDUM STATUS: COMPLETED [facility] C Unix Developer ordered patient 1 pair(s) of ft28 eyeglasses on 02/08/25 as directed by provider. OPT HT entered consult(s) for order on behalf of provider. /caio/ Joan Gill [facility] C Unix Developer Signed: 02/08/2025 14:05 JOSEE ZAPATA [facility]
--- OUTSIDE RECORDS SUMMARY | 2025-02-08 10:04 | XMS_ITS ---
Author Name [facility] [facility] [place] [facility] [place] [facility] [place] Address [address] [place] [address] Care Team Providers Care Attendant Sales Name Role Phone CHRISTI ARIAS Primary Care [...] Name Patient's Relationship to Policy [facility] ([facility]) MEDICARE ADVANTAGE [facility] ([facility]) Nov 17, 2017 NONE [id number] DARRELL NAVARRO PATIENT [facility] ([place]) MEDICARE ADVANTAGE [facility] ([place]) Nov 17, 2017 [id number] [phone] DARRELL NAVARRO PATIENT MEDICAID MEDICAID [facility] Jan 15, 2017 MEDICAI D [id number] DARRELL NAVARRO PATIENT Selected Encounter This section includes the information on record at [place] for the Encounter. Date/Time Encounter Type Encounter Description Reason Provider Source Feb 08, 2025 02:04 PM NQHP OL DIG ASSMT&MGMT 21+ PULMONARY/CHEST ICD-10-CM Z12.2 Encntr screen for malignant neoplasm of respiratory organs NIDHI CAMPOS [facility] Encounter Template Text not used by [place] Assessments - Encounter Diagnoses This section includes the primary and secondary diagnoses documented for the Encounter. Date/Time Primary/Secondary Diagnosis Diagnosis Name Provider Source Feb 08, 2025 02:21 PM PRIMARY Encntr screen for malignant neoplasm of respiratory organs NIDHI CAMPOS [place] [facility] [place] [facility] Plan of Treatment: Future Appointments (+ 6 months) and Future Tests (+/- 45 days) The Plan of Treatment section includes [facility] care activities [facility] the [facility] [place] [facility]. This section includes future appointments and [...] 10, 2025 01:00 PM AMBULATORY - PSYCHIATRY [facility] Feb 17, 2025 12:30 PM AMBULATORY - MEDICINE [place] [facility] [place] [facility] Mar 08, 2025 01:30 PM AMBULATORY - PSYCHIATRY [facility] Mar 08, 2025 02:00 PM AMBULATORY - PSYCHIATRY [facility] March 17, 2025 01:00 PM AMBULATORY - PSYCHIATRY [facility] March 18, 2025 11:30 AM AMBULATORY - MEDICINE [facility] April 04, 2025 12:30 PM AMBULATORY - MEDICINE [place] [facility] [place] [facility] April 12, 2025 02:00 PM AMBULATORY - REHAB MEDICIN [facility] [place] [facility] April 12, 2025 02:15 PM AMBULATORY - MED[facility] April 15, 2025 01:30 PM AMBULATORY - MED[facility]INE [facility] Apr 20, 2025 02:30 PM AMBULATORY - PSYCHIATRY [facility] May 02, 2025 01:00 PM AMBULATORY - MEDICINE [place] [facility] [place] [facility] Jun 06, 2025 02:00 PM AMBULATORY - MED[facility]INE [facility] Jun 13, 2025 01:00 PM AMBULATORY - MEDICINE [place] [facility] [place] [facility] Jun 14, 2025 01:00 PM AMBULATORY - PSYCHIATRY [facility] Jun 14, 2025 02:00 PM AMBULATORY - PSYCHIATRY [facility] Jul 12, 2025 01:00 PM AMBULATORY - PSYCHIATRY [facility] Jul 22, 2025 01:00 PM AMBULATORY - MEDICINE [facility] Jul 29, 2025 01:30 PM AMBULATORY - PSYCHIATRY [facility] Lab Results: +/- 30 [...] Type Comment Feb 17, 2025 01:36 PM [facility] HEMOGLOBIN A1C PANEL BLOOD Specimen Type: [...] Feb 17, 2025 12:49 PM Reporting Lab: [address] [address] Performing Lab: [address] [address] HEMOGLOBIN A1C 8.7 H 4.0-5.6 Feb 17, 2025 01:36 PM [facility] LIPID PANEL FASTING SERUM Specimen Type: SERU M No comment entered. Ordering Provider: LAMBERTO MIKE Report Released Date/Time: Feb 17, 2025 12:49 PM Reporting Lab: [address] [address] Performing Lab: [address] [address] CHOLESTEROL 140 mg/dL TRIGLYCERIDE 108 mg/dL 0-150 LDL calculated 72 mg/dL 0-129 CHOL/HDL 3.0 HDL CHOLESTEROL 46 mg/dL 40-60 Feb 17, 2025 01:36 PM [facility] MICROALBUMIN CREATININE RATIO PANEL URINE Spe cimen Type: URINE No comment entered. Ordering Provider: LAMBERTO MIKE Report Released Date/Time: Feb 17, 2025 12:49 PM Reporting Lab: [address] [address] Performing Lab: [address] [address] MICROALBUMIN/CREATININE RATIO 17.0 mg/g 0-29.9 MICROALBUMIN,QUANTITATIVE 3.6 mg/dL RR U NAVAIL CREATININE URINE 211.81 mg/dL Feb 17, 2025 01:36 PM [facility] BASIC METABOLIC PANEL (fasting) SERUM Specime n Type: SERUM No comment entered. Ordering Provider: LAMBERTO MIKE Report Released Date/Time: Feb 17, 2025 12:49 PM Reporting Lab: [address] [address] Performing Lab: [address] [address] UREA NITROGEN 15 mg/dL 7-25 GLUCOSE 75 mg/dL 65-100 SODIUM 134 mmol/L L 135-145 POTASSIUM 3.9 mmol/L 3.5-5.0 CHLORIDE 105 mmol/L 100-110 CO2 22 meq/L 20-30 CALCIUM 9.3 mg/dL 8.5-10.2 CREATININE, Serum 0.87 mg/dL 0.50-1.40 eGFR(CKD-EPI 2020) >90 mL/min >60 Feb 17, 2025 01:36 PM [facility] CBC BLOOD Specimen Type: BLOOD No comment entered. Ordering Provider: LAMBERTO MIKE Report Released Date/Time: Feb 17, 2025 12:49 PM Reporting Lab: [address] [address] Performing Lab: [address] [address] WBC 10.02 10*3/uL 4.50-11.00 RBC 4.82 10*6/uL [...] 2024 10:30 AM VA-TOBACCO USER EVERY DAY [facility] Tobacco Use History This section includes a history of the smoking, or tobacco-related health factors, that were collected on or before the date of the Encounter. The data comes from the [place] facility where the Encounter took place. Date/Time Smoking Status/Tobacco Use Comment F acility May 06, 2024 10:30 AM VA-TOBACCO USE 30 YEARS OR MORE [facility] [place] [facility] May 06, 2024 10:30 AM VA-TOBACCO USE ADVICE [facility] [place] [facility] May 06, 2024 10:30 AM VA-TOBACCO USE METER REPAIRER NO [facility] [place] [facility] May 06, 2024 10:30 AM VA-TOBACCO USE MED NO [facility] [place] [facility] May 06, 2024 10:30 AM VA-TOBACCO USER EVERY DAY [facility] [place] [facility] Dec 20, 2022 02:06 PM VA-TOBACCO USE 5 TO 15 YEARS [facility] [place] [facility] Dec 20, 2022 02:06 PM VA-TOBACCO USE ADVICE [facility] [place] [facility] Dec 20, 2022 02:06 PM VA-TOBACCO USE METER REPAIRER NO [facility] [place] [facility] Dec 20, 2022 02:06 PM VA-TOBACCO USE MED NO [facility] Dec 20, 2022 02:06 PM VA-TOBACCO USE WI 30 MIN OF WAKEUP [facility] Dec 20, 2022 02:06 PM VA-TOBACCO USER EVERY DAY [facility] Radiology Reports: +/- 30 days of [...] the Encounter. The data comes from all [place] treatment facilities. Date/Time Radiology Report Provider Source Feb 08, 2025 11:21 AM LDCT LUNG CANCER SCREENING: LISSETTE NAVARRO [id number] -[id number] M Exm Date: FEB 08, 2025@11:21 Req Phys: CHRISTI ARIAS Pat Loc: [facility] LCS CHART CONSULT (Req'g L Img Loc: [place] Service: Unknown [facility] [place] [address] (Case [id number] COMPLETE) LDCT LUNG CANCER SCREENING (CT Detailed) CPT:93939 Reason for Study: Lung Cancer screening Clinical History: 25 TPY, current Comparison: CT thorax 02/06/24 Stable 5.9 mm in greatest dimension left lower lobe subpleural solid well-rounded nodule, 8-244. 02/04/23, 02/08/22. Report Status: Verified Date Reported: FEB 08, 2025 Date Verified: FEB 08, 2025 Social Media Content Manager E-Sig:/ES/KEIRY FERRARI JR Report: Study: Lung cancer [...] reviewed. Secondary computer-aided detection with post-processing from [email or web address] is used. The lack of intravenous contrast [...] Primary Interpreting Staff: KEIRY FERRARI JR, Radiologist (Social Media Content Manager) /KEIRY DODD JR [facility] Encounter Notes: All associated encounter notes This section contains the clinical notes associated to the Encounter. Date/Time Encounter Note(s) Provider Source Feb 08, 2025 02:23 PM PREVENTIVE MEDICIN E RISK ASSESSMENT SCREENING NOTE: LOCAL TITLE: LUNG CANCER SCREENING DOCUMENTATION STANDARD TITLE: PREVENTIVE MEDICINE RISK ASSESSMENT SCREENING NO DATE OF NOTE: FEB 08, 2025@14:23 ENTRY DATE: FEB 08, 2025@14:23:56 AUTHOR: ANNETTE CAMPOS EXP COSIGNER: URGENCY: STATUS: COMPLETED February 08, 2025 Dear : Mr. Lissette Navarro, Your recent lung cancer screening CT scan found a small lung nodule. Most nodules are not lung cancer, but a few can grow into lung cancer. As mentioned in the enclosed brochure, nodules are often caused by scar tissue, a healed infection, or some other irritant found in the air we breathe. Nodules are detected in up to half of screening CT scans, but very few nodules groover and turner to be cancer. In general, more than 95 out of 100 nodules found on lung cancer screening CT scans are not lung cancer. A copy of the results from your Low-Dose CT scan done on 02/08/2025 are enclosed with this letter. If there are additional findings, we will alert your primary care team. Your next lung cancer screening CT scan is due in 12 months(JANUARY 2026). You can call Imaging at [phone] to schedule this appointment. Or the Radiology team will reach out to schedule about 3 months prior to when your scan is due. If at the time of your next scan you are experiencing an upper respiratory illness like a cold or the flu, please get your scan 4 weeks after your symptoms have gone away. Lung cancer screening can detect lung cancer, but it does not prevent it. Rarely, a CT scan can miss a small lung cancer. Contact your primary care provider if you develop new symptoms like worsening shortness of breath, change in a cough, or coughing up blood. If you still smoke cigarettes, we can help you quit. We understand that quitting cigarette smoking is difficult, but it is the best way to improve your health. When you want help, let your primary care provider know. You can also call 4-521-ZJPV-VET ( ) or visit [employer]sm[employer]. Please contact us with questions or concerns about lung cancer screening. Sincerely, IHSAN Trevino, RN Ext [phone] [facility] Lung Cancer Screening Coordinator Enclosures: brochure entitled, Small Lung Nodules: What You Need to Know /es/ ANNETTE D CONNELLEY,BSN,RN. LUNG CANCER SCREENING NURSE Signed: 02/08/2025 14:27 ANNETTE CAMPOS [place] [facility] Feb 08, 2025 02:04 PM PREVENTIVE MEDICIN E RISK ASSESSMENT SCREENING NOTE: LOCAL TITLE: LUNG CANCER SCREENING DOCUMENTATION STANDARD TITLE: PREVENTIVE MEDICINE RISK ASSESSMENT SCREENING NO DATE OF NOTE: FEB 08, 2025@14:04 ENTRY DATE: FEB 08, 2025@14:04:35 AUTHOR: ANNETTE CAMPOS EXP COSIGNER: URGENCY: STATUS: COMPLETED NO LUNG NODULES or TRACKING OF NODULE NOT INDICATED per guidelines (e.g., clearly benign/some small nodules). Date of image: Date: February 08, 2025 LDCT Scan Results: Most recent LDCT scan shows a nodule for which tracking is not indicated per guidelines or radiology report. Lung RADS Score: 2 Lung-RADS Assessment: Category 2, benign appearance or behavior. Recommendation: Continue annual screening with lung cancer screening CT in 12 months. Index Nodule: Stable 5.9 mm solid, round, well-circumscribed, juxtapleural left lower lobe pulmonary nodule, 8-242. Other Nodules: None INCIDENTAL FINDINGS WILL BE MANAGED DEEMED APPROPRIATE BY PCP Incidental Findings: The following *INCIDENTAL FINDINGS* were noted: Other: Emphysema: Mild scattered bullous emphysematous changes with associated scattered parenchymal scarring is unchanged. Lungs/airway findings: Mild stable elevation of the right hemidiaphragm. Multiple scattered bilateral punctate calcified granulomata are again seen. Visualized coronary artery and aortic calcifications: Atherosclerotic changes of the aorta and coronary arteries. Upper abdomen: Status post cholecystectomy. Bones and soft tissues: Mild symmetric gynecomastia changes again seen. ACDF hardware partially visualized. I am notifying the Primary Care Provider for information, and for follow-up of incidental findings, if indicated. Comment: PCP as second signer in CPRS. Plan: Continue routine annual lung cancer screening. Patient Notification of results: Results letter sent to patient. Patient contacted by telephone. Call placed to the [place]. Results of LCS LDCT reviewed specific to pulmonary nodules/masses. [place] aware of stable 5.9 mm LLL nodule. Provided education on small lung nodules. Importance of and rationale for continued surveillance with LDCT at an annual interval discussed. agrees with continued surveillance through the lung cancer screening program and LCS LDCT in one year. We did discuss mild emphysema findings. states that he is working on cutting back smoking, tried using nicotine patches but they kept falling off, is using nicotine gum. aware that there are resources through the [place] for tobacco cessation and that should he be interested in utilization of these resources he may reach out to LCS Coordinator and/or PACT team. [place] expressed appreciation for time spent and education provided. Order for LCS LDCT in 12 months placed, held for PCP signature /caio/ NAZARIO TORRESN,RN. LUNG CANCER SCREENING NURSE Signed: 02/08/2025 14:21 Receipt Acknowledged By: 02/09/2025 08:22 /es/ CHRISTI ARIAS MD PHYSICIAN ANNETTE CAMPOS [facility]
--- OUTSIDE RECORDS SUMMARY | 2025-02-10 09:00 | XMS_ITS | Encounter Summary ---
Author Name [facility] [place] [facility] [place] Address [address] [place] [address] Care Team Providers Care Cattle Producers Name Role Phone CHRISTI ARIAS Primary Care [...] Name Patient's Relationship to Policy [facility] ([facility]) MEDICARE ADVANTAGE [facility] ([facility]) Nov 17, 2017 NONE [id number] DARRELL HUTCHINS [place] [facility] ([facility]) MEDICARE ADVANTAGE [facility] ([facility]) Nov 17, 2017 [id number] DARRELL HUTCHINS PATIENT MEDICAID MEDICAID [facility] Jan 15, 2017 MEDICAI D [id number] SANGEETAJohannaDARRELL PATIENT Selected Encounter This section includes the information on record at [place] for the Encounter. Date/Time Encounter Type Encounter Description Reason Provider Source Feb 10, 2025 01:00 PM OFF/OP EST MARCH X REQ PHY[facility] - [facility] ICD-10-CM Z71.89 Other specified counseling JANNETTE AVELAR [facility] Encounter Template Text not used by [place] Assessments - Encounter Diagnoses This section includes the primary and secondary diagnoses documented for the Encounter. Date/Time Primary/Secondary Diagnosis Diagnosis Name Provider Source Feb 10, 2025 02:52 PM PRIMARY Other specified counseling JANNETTE AVELAR [facility] Plan of Treatment: Future Appointments (+ 6 months) and Future Tests (+/- 45 days) The Plan of Treatment section includes future care activities for the patient [facility] [place] [facility] This section includes future appointments and future orders which are active, pending or scheduled. Future Appointments This section includes appointments that were scheduled to occur 6 months from the date of the Encounter, up to a maximum of 20 appointments. The data comes from all [place] treatment facilities. Appointment Date/Time Appointment Type Appointme nt Facility Name Feb 17, 2025 12:30 PM [place] [facility] [place] [facility] Mar 08, 2025 01:30 PM AMBULATORY - PSYCHIATRY [facility] Mar 08, 2025 02:00 PM AMBULATORY - PSYCHIATRY [facility] March 17, 2025 01:00 PM AMBULATORY - PSYCHIATRY [facility] March 18, 2025 11:30 AM [facility]ICINE [facility] April 04, 2025 12:30 PM [place] [facility] [place] [facility] April 12, 2025 02:00 PM AMBULATORY - [facility]HAB [facility]ICIN [facility] [place] [facility] April 12, 2025 02:15 PM [facility] April 15, 2025 01:30 PM [facility] Apr 20, 2025 02:30 PM AMBULATORY - PSYCHIATRY [facility] May 02, 2025 01:00 PM [place] [facility] [place] [facility] Jun 06, 2025 02:00 PM [facility] Jun 13, 2025 01:00 PM [place] [facility] [place] [facility] Jun 14, 2025 01:00 PM AMBULATORY - PSYCHIATRY [facility] Jun 14, 2025 02:00 PM AMBULATORY - PSYCHIATRY [facility] Jul 12, 2025 01:00 PM AMBULATORY - PSYCHIATRY [facility] Jul 22, 2025 01:00 PM [facility] Jul 29, 2025 01:30 PM AMBULATORY - PSYCHIATRY [facility] Lab Results: +/- 30 days of the encounter This section includes the Chemistry and Hematology Lab Results on record with [place] for the patient. Radiology Reports and Pathology Reports are provided separately, in subsequent sections. Lab Results This section contains the Chemistry/Hematology Results that were resulted 30 days before or 30 daysafter the date of the Encounter. Date/Time Source Result Type Result - Unit Interpretation Reference Range Specimen Type Comment Feb 17, 2025 01:36 PM [facility] HEMOGLOBIN A1C PANEL BLOOD Specimen Type: [...] Feb 17, 2025 12:49 PM Reporting Lab: [facility] [address] [facility] [address] Performing Lab: [address] [address] HEMOGLOBIN A1C 8.7 H 4.0-5.6 Feb 17, 2025 01:36 PM [facility] MICROALBUMIN CREATININE RATIO PANEL URINE Spe cimen Type: URINE No comment entered. Ordering Provider: LAMBERTO MIKE Report Released Date/Time: Feb 17, 2025 12:49 PM Reporting Lab: [facility] [address] [facility] [address] Performing Lab: [address] [address] MICROALBUMIN/CREATININE RATIO 17.0 mg/g 0-29.9 MICROALBUMIN,QUANTITATIVE 3.6 mg/dL RR U NAVAIL CREATININE URINE 211.81 mg/dL Feb 17, 2025 01:36 PM [facility] BASIC METABOLIC PANEL (fasting) SERUM Specime n Type: SERUM No comment entered. Ordering Provider: LAMBERTO MIKE Report Released Date/Time: Feb 17, 2025 12:49 PM Reporting Lab: [facility] [address] [address] Performing Lab: [address] [address] UREA NITROGEN 15 mg/dL 7-25 GLUCOSE 75 mg/dL 65-100 SODIUM 134 mmol/L L 135-145 POTASSIUM 3.9 mmol/L 3.5-5.0 CHLORIDE 105 mmol/L 100-110 CO2 22 meq/L 20-30 CALCIUM 9.3 mg/dL 8.5-10.2 CREATININE, Serum 0.87 mg/dL 0.50-1.40 eGFR(CKD-EPI 2020) >90 mL/min >60 Feb 17, 2025 01:36 PM [facility] LIPID PANEL FASTING SERUM Specimen Type: SERU M No comment entered. Ordering Provider: LAMBERTO MIKE Report Released Date/Time: Feb 17, 2025 12:49 PM Reporting Lab: [address] [address] Performing Lab: [address] [address] CHOLESTEROL 140 mg/dL TRIGLYCERIDE 108 mg/dL 0-150 LDL calculated 72 mg/dL 0-129 CHOL/HDL 3.0 HDL CHOLESTEROL 46 mg/dL 40-60 Feb 17, 2025 01:36 PM [facility] CBC BLOOD Specimen Type: BLOOD No comment entered. Ordering Provider: LAMBERTO MIKE Report Released Date/Time: Feb 17, 2025 12:49 PM Reporting Lab: [address] [address] Performing Lab: [address] [address] WBC 10.02 10*3/uL 4.50-11.00 RBC 4.82 10*6/uL [...] and tobacco- related health factors from the [place] facility where the Encounter took place. Current Smoking Status This section includes the most current smoking, or tobacco-related health factor, from the [place] facility where the Encounter took place. Date/Time Current Smoking Status Comment Facil it Aug 24, 2021 11:30 AM VA-TOBACCO USER EVERY DAY [facility] Tobacco Use History This section includes a history of the smoking, or tobacco-related health factors, that were collected on or before the date of the Encounter. The data comes from the [place] facility where the Encounter took place. Date/Time Smoking Status/Tobacco Use Comment F acility Aug 24, 2021 11:30 AM VA-TOBACCO USE ADVICE [facility] Aug 24, 2021 11:30 AM VA-TOBACCO USE DATA ARCHITECT NO [facility] Aug 24, 2021 11:30 AM VA-TOBACCO USE MED NO [facility] Aug 24, 2021 11:30 AM VA-TOBACCO USE WI 30 MIN OF WAKEUP [facility] Aug 24, 2021 11:30 AM VA-TOBACCO USER EVERY DAY [facility] May 11, 2020 09:35 AM VA-TOBACCO DOESNT USE WI 30 MIN WAKEUP [facility] May 11, 2020 09:35 AM VA-TOBACCO USE 30 YEARS OR MORE [facility] May 11, 2020 09:35 AM VA-TOBACCO USE ADVICE [facility] May 11, 2020 09:35 AM VA-TOBACCO USE DATA ARCHITECT NO [facility] May 11, 2020 09:35 AM VA-TOBACCO USE MED [facility] May 11, 2020 09:35 AM VA-TOBACCO USER EVERY DAY [facility] Jan 28, 2019 10:44 AM VA-TOBACCO DOESNT USE WI 30 MIN WAKEUP [facility] Jan 28, 2019 10:44 AM VA-TOBACCO USE 5 TO 15 YEARS [facility] Jan 28, 2019 10:44 AM VA-TOBACCO USE ADVICE [facility] Jan 28, 2019 10:44 AM VA-TOBACCO USE DATA ARCHITECT NO [facility] Jan 28, 2019 10:44 AM VA-TOBACCO USE MED NO [facility] Jan 28, 2019 10:44 AM VA-TOBACCO USER EVERY DAY [facility] Nov 06, 2017 09:56 AM [facility] Nov 06, 2017 09:56 AM V1-PT NOT INTEREST ED IN QUIT TOBACCO USE [facility] Sep 15, 2017 02:08 PM CURRENT SMOKER reports smoking about 1/2 pack small cigars/day [facility] Radiology Reports: +/- 30 days of the [...] the Encounter. The data comes from all [place] treatment facilities. Date/Time Radiology Report Provider Source Feb 08, 2025 11:21 AM LDCT LUNG CANCER SCREENING: LISSETTE HUTCHINS [id number] -[id number] M Exm Date: FEB 08, 2025@11:21 Req Phys: CHRISTI ARIAS Pat Loc: [facility] LCS CHART CONSULT (Req'g L Img Loc: [facility]/CT Service: [place] [address] (Case [id number] COMPLETE) LDCT LUNG CANCER SCREENING (CT Detailed) CPT:40645 Reason for Study: Lung Cancer screening Clinical History: 25 TPY, current Comparison: CT thorax 02/06/24 Stable 5.9 mm in greatest dimension left lower lobe subpleural solid well-rounded nodule, 8-244. 02/04/23, 02/08/22. Report Status: Verified Date Reported: FEB 08, 2025 Date Verified: FEB 08, 2025 [employer] E-Sig:/ES/KEIRY FERRARI JR Report: Study: Lung cancer [...] reviewed. Secondary computer-aided detection with post-processing from [employer] is used. The lack of intravenous contrast [...] Primary Interpreting Staff: KEIRY FERRARI JR, Radiologist ([employer]) /KEIRY DODD JR [facility] Encounter Notes: All associated encounter notes This section contains the clinical notes associated to the Encounter. Date/Time Encounter Note(s) Provider Source Feb 10, 2025 02:34 PM SOCIAL WORK NOTE: LOCAL TITLE: SOCIAL WORK NOTE STANDARD TITLE: SOCIAL WORK NOTE DATE OF NOTE: FEB 10, 2025@14:34 ENTRY DATE: FEB 10, 2025@14:34:27 AUTHOR: JANNETTE AVELAR EXP COSIGNER: URGENCY: STATUS: COMPLETED Misenheimer is seen for supportive visits/case management visits. Today we were able to complete a financial waiver. [facility] about [facility]1,000. His monthly income is about $2,200, expenses total about the same, he has a high rent and high truck payment. Although he is quick to say his son doesn't help him he actually does regularly. Even w Ian's help, his finances are tight. Zechariah seemed to have a good awareness of his finances. was given a copy of the form, the original is mailed to [facility]. He has not smoked for several days, only bc his son won't buy him cigarettes which he is upset about. He is using nicorette gum. He is not really trying to quit and states he will buy more cigarettes when he has money. Recent lung cancer screening is negative. As usual, Zechariah is friendly, talkative, difficult to keep on topic but redirectable. Today he is moving a little slower, legs and hips are hurting. rtc 1mo /es/ TULIO Huntley SPECIAL CLASS WELDER Signed: 02/10/2025 14:52 JANNETTE AVELAR [facility]
--- OUTSIDE RECORDS SUMMARY | 2025-03-08 09:30 | XMS_ITS | Encounter Summary ---
Author Name [facility] Organization [facility] Address [address] [place] [id number] Care Team Providers Care Explosives Worker Name Role Phone CHRISTI ARIAS Primary [...] Name Patient's Relationship to Policy [facility] ([facility]) MEDICARE ADVANTAGE [facility] ([facility]) Nov 17, 2017 NONE [id number] DARRELL HUTCHINS PATIENT [facility] ([facility]) MEDICARE ADVANTAGE [facility] ([facility]) Nov 17, 2017 [id number] DARRELL HUTCHINS PATIENT MEDICAID MEDICAID [facility] Jan 15, 2017 MEDICAI D [id number] DARRELL HUTCHINS PATIENT Selected Encounter This section includes the information on record at [place] for the Encounter. Date/Time Encounter Type Encounter Description Reason Provider Source Mar 08, 2025 01:30 PM OFFICE O/P EST MOD 30 MIN [facility] - IND ICD-10-CM F32.9 Major depressive disorder, single episode, unspecified WORKMANEUGENE Jennifer Herring IHJohanna Encounter Template Text not used by [place] Assessments - Encounter Diagnoses This section includes the primary and secondary diagnoses documented for the Encounter. Date/Time Primary/Secondary Diagnosis Diagnosis Name Provider Source Mar 09, 2025 06:40 PM PRIMARY Major depressive disorder, single episode, unspecified DENISSE WORKMAN SHAW Mar 09, 2025 06:40 PM SECONDARY Post-traumatic stress disorder, unspecified WORKMANDENISSE G SHAW Plan of Treatment: Future Appointments (+ 6 months) and Future Tests (+/- 45 days) The Plan of Treatment section includes future care activities for the patient [facility] This section includes future appointments and future orders which are active, pending or scheduled. Future Appointments This section includes appointments that were scheduled to occur 6 months from the date of the Encounter, up to a maximum of 20 appointments. The data comes from all [place] treatment facilities. Appointment Date/Time Appointment Type Appointme nt Facility Name March 17, 2025 01:00 PM AMBULATORY - PSYCHIATRY [facility] March 18, 2025 11:30 AM AM[facility]ULATORY [facility] MEDICINE [facility] April 04, 2025 12:30 PM AMBULATORY - MEDICINE [facility] April 12, 2025 02:00 PM AMBULATORY - [facility]HAB [facility]ICIN [facility] April 12, 2025 02:15 PM [facility]ORY [facility]ICINE [facility] April 15, 2025 01:30 PM AM[facility]ULATORY - MEDICINE [facility] Apr 20, 2025 02:30 PM AMBULATORY - PSYCHIATRY [facility] May 02, 2025 01:00 PM AMBULATORY - MEDICINE [facility] Jun 06, 2025 02:00 PM [facility]ORY [facility] MEDICINE [facility] Jun 13, 2025 01:00 PM AMBULATORY - MEDICINE [facility] Jun 14, 2025 01:00 PM AMBULATORY - PSYCHIATRY [facility] Jun 14, 2025 02:00 PM AMBULATORY - PSYCHIATRY [facility] Jul 12, 2025 01:00 PM AMBULATORY - PSYCHIATRY [facility] Jul 22, 2025 01:00 PM [facility]ORY [facility] MEDICINE [facility] Jul 29, 2025 01:30 PM AMBULATORY - PSYCHIATRY [facility] Aug 23, 2025 02:00 PM AMBULATORY - PSYCHIATRY [facility] Lab Results: +/- 30 days of the encounter This section includes the Chemistry and Hematology Lab Results on record with [place] for the patient. Radiology Reports and Pathology Reports are provided separately, in subsequent sections. Lab Results This section contains the Chemistry/Hematology Results that were resulted 30 days before or 30 daysafter the date of the Encounter. Date/Time Source Result Type Result - Unit Interpretation Reference Range Specimen Type Comment Feb 17, 2025 01:36 PM [facility] HEMOGLOBIN A1C PANEL BLOOD Specimen Type: BLOOD [...] Feb 17, 2025 12:49 PM Reporting Lab: [address] [address] Performing Lab: [address] [address] HEMOGLOBIN A1C 8.7 H 4.0-5.6 Feb 17, 2025 01:36 PM [facility] MICROALBUMIN CREATININE RATIO PANEL URINE Spe cimen Type: URINE No comment entered. Ordering Provider: LAMBERTO MIKE Report Released Date/Time: Feb 17, 2025 12:49 PM Reporting Lab: [address] [address] Performing Lab: [address] [address] MICROALBUMIN/CREATININE RATIO 17.0 mg/g 0-29.9 MICROALBUMIN,QUANTITATIVE 3.6 mg/dL RR U NAVAIL CREATININE URINE 211.81 mg/dL Feb 17, 2025 01:36 PM [facility] BASIC METABOLIC PANEL (fasting) SERUM Specime n Type: SERUM No comment entered. Ordering Provider: LAMBERTO MIKE Report Released Date/Time: Feb 17, 2025 12:49 PM Reporting [facility]: [facility] [address] [facility] [address] Performing Lab: [facility] [address] [address] UREA NITROGEN 15 mg/dL 7-25 GLUCOSE 75 mg/dL 65-100 SODIUM 134 mmol/L L 135-145 POTASSIUM 3.9 mmol/L 3.5-5.0 CHLORIDE 105 mmol/L 100-110 CO2 22 meq/L 20-30 CALCIUM 9.3 mg/dL 8.5-10.2 CREATININE, Serum 0.87 mg/dL 0.50-1.40 eGFR(CKD-EPI 2020) >90 mL/min >60 Feb 17, 2025 01:36 PM [facility] LIPID PANEL FASTING SERUM Specimen Type: SERU M No comment entered. Ordering Provider: LAMBERTO MIKE Report Released Date/Time: Feb 17, 2025 12:49 PM Reporting Lab: [address] [address] Performing Lab: [address] [address] CHOLESTEROL 140 mg/dL TRIGLYCERIDE 108 mg/dL 0-150 LDL calculated 72 mg/dL 0-129 CHOL/HDL 3.0 HDL CHOLESTEROL 46 mg/dL 40-60 Feb 17, 2025 01:36 PM [facility] CBC BLOOD Specimen Type: BLOOD No comment entered. Ordering Provider: LAMBERTO MIKE Report Released Date/Time: Feb 17, 2025 12:49 PM Reporting Lab: [address] [address] Performing Lab: [address] [address] WBC 10.02 10*3/uL 4.50-11.00 RBC 4.82 10*6/uL [...] 2021 11:30 AM VA-TOBACCO USER EVERY DAY [facility] Tobacco Use History This section includes a history of the smoking, or tobacco-related health factors, that were collected on or before the date of the Encounter. The data comes from the [place] facility where the Encounter took place. Date/Time Smoking Status/Tobacco Use Comment F acility Aug 24, 2021 11:30 AM VA-TOBACCO USE ADVICE [facility] Aug 24, 2021 11:30 AM VA-TOBACCO USE HEMMER LOCKSTITCH NO [place] Aug 24, 2021 11:30 AM VA-TOBACCO USE MED NO [place] Aug 24, 2021 11:30 AM VA-TOBACCO USE WI 30 MIN OF [facility] Aug 24, 2021 11:30 AM VA-TOBACCO USER EVERY DAY [place] May 11, 2020 09:35 AM VA-TOBACCO DOESNT USE WI 30 MIN [facility] May 11, 2020 09:35 AM VA-TOBACCO USE 30 YEARS OR MORE [facility] May 11, 2020 09:35 AM VA-TOBACCO USE ADVICE [place] May 11, 2020 09:35 AM VA-TOBACCO USE HEMMER LOCKSTITCH NO [place] May 11, 2020 09:35 AM VA-TOBACCO USE MED NO [place] May 11, 2020 09:35 AM VA-TOBACCO USER EVERY DAY [place] Jan 28, 2019 10:44 AM VA-TOBACCO DOESNT USE WI 30 MIN [facility] Jan 28, 2019 10:44 AM VA-TOBACCO USE 5 TO 15 YEARS [facility] Jan 28, 2019 10:44 AM VA-TOBACCO USE ADVICE [place] Jan 28, 2019 10:44 AM VA-TOBACCO USE HEMMER LOCKSTITCH NO [place] Jan 28, 2019 10:44 AM VA-TOBACCO USE MED [facility] Jan 28, 2019 10:44 AM VA-TOBACCO USER EVERY DAY [place] Nov 06, 2017 09:56 AM CURRENT SMOKER [facility] [place] Nov 06, 2017 09:56 AM V1-PT NOT INTEREST ED IN QUIT TOBACCO USE [place] Sep 15, 2017 02:08 PM CURRENT SMOKER reports smoking about 1/2 pack small cigars/day [facility] [facility] Radiology Reports: +/- 30 days of the [...] the Encounter. The data comes from all [place] treatment facilities. Date/Time Radiology Report Provider Source Feb 08, 2025 11:21 AM LDCT LUNG CANCER SCREENING: LISSETTE HUTCHINS [id number] [id number] M Exm Date: FEB 08, 2025@11:21 Req Phys: CHRISTI ARIAS Loc: [facility] LCS CHART CONSULT (Req'g L Img Loc: [facility]/CT Service: Unknown [place] [address] (Case [id number] COMPLETE) LDCT LUNG CANCER SCREENING (CT Detailed) CPT:92605 Reason for Study: Lung Cancer screening Clinical History: 25 TPY, current Comparison: CT thorax 02/06/24 Stable 5.9 mm in greatest dimension left lower lobe subpleural solid well-rounded nodule, 8-244. 02/04/23, 02/08/22. Report Status: Verified Date Reported: FEB 08, 2025 Date Verified: FEB 08, 2025 Agency Legal Counsel E-Sig:/ES/KEIRY FERRARI JR Report: Study: Lung cancer [...] reviewed. Secondary computer-aided detection with post-processing from [facility] is used. The lack of intravenous contrast [...] Primary Interpreting Staff: KEIRY FERRARI JR, Radiologist (Agency Legal Counsel) /KEIRY DODD JR [facility] Encounter Notes: All associated encounter notes This section contains the clinical notes associated to the Encounter. Date/Time Encounter Note(s) Provider Source Mar 08, 2025 01:37 PM PSYCHIATRY NOTE: LOCAL TITLE: PSYCHIATRY NOTE STANDARD TITLE: PSYCHIATRY NOTE DATE OF NOTE: MAR 08, 2025@13:37 ENTRY DATE: MAR 08, 2025@13:37:05 AUTHOR: DENISSE WORKMAN EXP COSIGNER: URGENCY: STATUS: COMPLETED PSYCHIATRY NOTE Has ADDENDA 30 min for encounter, including chart review, interview, charting chart reviewed Patient relatively stable. Depression generally remains improved, but some periods of increased mild sx's when under stress. PTSD symptoms/irritability fluctuate with stress (although reports irritability better). Affect brightens appropriately. The patient denies recent SI and violent ideation, but has past h/o chronic intermittent SI w/o plan or intent. Thoughts are well organized. No paranoid or delusional content presented. Denies hallucinations. Speech normal. Cognitive exam grossly unchanged. Has interests, for example reading, he again becomes animated as he discusses his reading (novels, news) and enjoys his building with Legos. As with each interview, the patient clearly enjoys talking, telling stories. He again has good sense of humor. He again likes to talk about current events. Again, reasonable hygiene. Some insomnia. 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 Patient reports h/o social and fnc impairment related to these symptoms. We reviewed the current psychiatric medication and the patient again has improved in terms of depression and is tolerating medication well. Despite having some mild symptoms at times, overall the improvement is significant and the patient wants to keep the medication the same, he does not want dose increase. But he does request dose increase for melatonin for insomnia, see below. Despite the current psychiatric medication helping depression, patient reports ongoing PTSD symptoms as mentioned above Denies psych med side effects. Denies daytime sedation. Reports med compliance h/o heavy alcohol -- stopped over 5 yrs ago, except reports very occasional drink; denies recent cannabis; denies street drugs Pt ; Pt is close to his son, who lives w him. 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 Pulmonary emphysema 2. Cellulitis and abscess of lower leg 3. Heart murmur 4. Cardiac arrhythmia 5. Actinic keratosis 6. Headache 7. Insomnia 8. Unsteady gait 9. Vitamin D Deficiency ([facility] [id number]) 10. Vitamin B12 Deficiency ([facility] [id number]) 11. Diarrhea 12. CAD - Coronary Artery Disease ([facility] [id number]) 13. Pain of left knee joint 14. Tobacco user 15. Peripheral venous insufficiency 16. Onychomycosis 17. History of cholecystectomy 18. Chronic back pain 19. Neck pain 20. Co-Management 21. Depression ([facility] [id number]) 22. Hyperglycemia due to type 2 diabetes mellitus 23. Hyperlipidemia 24. Essential hypertension 25. Neuropathy due to type 2 diabetes mellitus 26. 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 See C-SSRS below. The patient denies suicidal and violent ideation (but has past history of intermittent suicidal ideation, without plan or intent). The pt is probably low risk for suicide or violence, but the [facility] Crisis Line information and number were reviewed [...] his son is a significant protective factor. Note that I reviewed again with Dr. Perla today, and she again agrees with the above risk assessment, low acute risk, possibly intermediate chronic risk. continue psychotherapy w Dr Perla, and supportive [...] no change in Remeron today because pt benefiting, and he does not want med change. Also see below for more discussion. Benefits outweigh risks. CONTINUE CYMBALTA 60 MG DAILY for depression, significant improvement -patient does not feel he needs dose increase. Note that patient appears to have better response to Cymbalta than the previous Zoloft. Pt previously requested increase in cymbalta to 60 day supply to decrease [...] for nightmares because the side effect profile. INCREASE MELATONIN TO 9 MG QHS WHEN NECESSARY INSOMNIA, helpful for sleep. But pt requests increase to further improve insomnia. Reviewed side effect profile including risk of next-day sedation with patient. Patient denies side effects, denies next day sedation. The discussion with patient about treatments including [...] he likes Spoke previously with Audrey MCKOY [phone] -- although pt now declines VN - does not feel he needs Medication Reconciliation: Outpatient: Has the patient been taking medications as documented in the EMLR? YES: The patient has been taking medications as documented in the EMLR. Essential Medication List for Review used to complete this medication reconciliation. INCLUDED IN THIS LIST: Alphabetical list of active outpatient prescriptions [facility] this [facility] ([facility]) and dispensed from another [place] or [facility] facility (remote) as well as [...] or non-VA provider. Suicide Screen: C-SSRS Screening [place]-Suicide Severity Rating Scale (C-SSRS Screener) 1. Over the past month, have you wished you were or wished you could go to sleep and not wake up? Yes 2. Over the past month, have you [...] /caio/ DENISSE WORKMAN MD STAFF PSYCHIATRIST Signed: 03/09/2025 18:40 Receipt Acknowledged By: 03/10/2025 07:13 /caio/ Bernice Shi [employer] EXPERT 03/09/2025 ADDENDUM STATUS: UNSIGNED You may not VIEW this UNSIGNED Addendum. DENISSE WORKMAN
--- OUTSIDE RECORDS SUMMARY | 2025-03-08 10:00 | XMS_ITS | Encounter Summary ---
Author Name [facility] [place] [facility] [place] Address [address] [place] [address] Care Team Providers Care Billet Driller Name Role Phone CHRISTI ARIAS Primary Care [...] Name Patient's Relationship to Policy [facility] ([facility]) MEDICARE ADVANTAGE [facility] ([facility]) Nov 17, 2017 NONE [id number] DARRELL HUTCHINS PATIENT [facility] ([facility]) MEDICARE ADVANTAGE [facility] ([facility]) Nov 17, 2017 [id number] DARRELL HUTCHINS PATIENT MEDICAID MEDICAID [facility] Jan 15, 2017 MEDICAI D [id number] DARRELL HUTCHINS PATIENT Selected Encounter This section includes the information on record at [place] for the Encounter. Date/Time Encounter Type Encounter Description Reason Provider Source Mar 08, 2025 02:00 PM PSYTX W PT 45 [facility]UTES [facility] - [facility] ICD-10-CM F33.1 Major depressive disorder, recurrent, moderate OFRAT,EMELY Johanna Encounter Template Text not used by [place] Assessments - Encounter Diagnoses This section includes the primary and secondary diagnoses documented for the Encounter. Date/Time Primary/Secondary Diagnosis Diagnosis Name Provider Source Mar 10, 2025 09:56 AM PRIMARY Major depressive disorder, recurrent, moderate OFRAT,EMELY SHAW Plan of Treatment: Future Appointments (+ 6 months) and Future Tests (+/- 45 days) The Plan of Treatment section includes future care activities for the [facility] This section includes future appointments and future orders which are active, pending or scheduled. Future Appointments This section includes appointments that were scheduled to occur 6 months from the date of the Encounter, up to a maximum of 20 appointments. The data comes from all [place] treatment facilities. Appointment Date/Time Appointment Type Appointme nt Facility Name March 17, 2025 01:00 PM AMBULATORY - PSYCHIATRY [facility] March 18, 2025 11:30 AM [facility] April 04, 2025 12:30 PM AMBULATORY - MEDICINE [place] [facility] [place] [facility] April 12, 2025 02:00 PM AMBULATORY - REHAB MEDICIN E [place] [facility] [place] [facility] April 12, 2025 02:15 PM AMBULATORY - MEDICINE [facility] April 15, 2025 01:30 PM AMBULATORY - MEDICINE [facility] Apr 20, 2025 02:30 PM AMBULATORY - PSYCHIATRY [facility] May 02, 2025 01:00 PM AMBULATORY - MEDICINE [place] [facility] [place] [facility] Jun 06, 2025 02:00 PM [facility] Jun 13, 2025 01:00 PM AMBULATORY - MEDICINE [place] [facility] [facility] Jun 14, 2025 01:00 PM AMBULATORY - PSYCHIATRY [facility] Jun 14, 2025 02:00 PM AMBULATORY - PSYCHIATRY [facility] Jul 12, 2025 01:00 PM AMBULATORY - PSYCHIATRY [facility] Jul 22, 2025 01:00 PM AMBULATORY - MEDICINE [facility] Jul 29, 2025 01:30 PM AMBULATORY - PSYCHIATRY [facility] Aug 23, 2025 02:00 PM AMBULATORY - PSYCHIATRY [facility] Lab Results: +/- 30 days of the encounter This section includes the Chemistry and Hematology Lab Results on record with [place] for the patient. Radiology Reports and Pathology [...] Feb 17, 2025 12:49 PM Reporting Lab: [address] [address] Performing Lab: [address] [address] HEMOGLOBIN A1C 8.7 H 4.0-5.6 Feb 17, 2025 01:36 PM [facility] LIPID PANEL FASTING SERUM Specimen Type: SERU M No comment entered. Ordering Provider: LAMBERTO MIKE Report Released Date/Time: Feb 17, 2025 12:49 PM [facility] [address] Performing Lab: [facility] [address] CHOLESTEROL 140 mg/dL TRIGLYCERIDE 108 mg/dL 0-150 LDL calculated 72 mg/dL 0-129 CHOL/HDL 3.0 HDL CHOLESTEROL 46 mg/dL 40-60 Feb 17, 2025 01:36 PM [facility] MICROALBUMIN CREATININE RATIO PANEL URINE Spe cimen Type: URINE No comment entered. Ordering Provider: LAMBERTO MIKE Report Released Date/Time: Feb 17, 2025 12:49 PM Reporting [facility] [address] Performing Lab: [facility] [address] [facility] [address] MICROALBUMIN/CREATININE RATIO 17.0 mg/g 0-29.9 MICROALBUMIN,QUANTITATIVE 3.6 mg/dL RR U NAVAIL CREATININE URINE 211.81 mg/dL Feb 17, 2025 01:36 PM [facility] BASIC METABOLIC PANEL (fasting) SERUM Specime n Type: SERUM No comment entered. Ordering Provider: LAMBERTO MIKE Report Released Date/Time: Feb 17, 2025 12:49 PM Reporting Lab: [facility] [address] [facility] [address] Performing Lab: [address] [address] UREA NITROGEN 15 mg/dL 7-25 GLUCOSE 75 mg/dL 65-100 SODIUM 134 mmol/L L 135-145 POTASSIUM 3.9 mmol/L 3.5-5.0 CHLORIDE 105 mmol/L 100-110 CO2 22 meq/L 20-30 CALCIUM 9.3 mg/dL 8.5-10.2 CREATININE, Serum 0.87 mg/dL 0.50-1.40 eGFR(CKD-EPI 2020) >90 mL/min >60 Feb 17, 2025 01:36 PM [facility] CBC BLOOD Specimen Type: BLOOD No comment entered. Ordering Provider: LAMBERTO MIKE Report Released Date/Time: Feb 17, 2025 12:49 PM Reporting Lab: [address] [address] Performing Lab: [address] [address] WBC 10.02 10*3/uL 4.50-11.00 RBC 4.82 10*6/uL [...] and tobacco- related health factors from the NE facility where the Encounter took place. Current Smoking Status This section includes the most current smoking, or tobacco-related health factor, from the NE facility where the Encounter took place. Date/Time Current Smoking Status Comment Facil ity Aug 24, 2021 11:30 AM VA-TOBACCO USER EVERY DAY [facility] Tobacco Use History This section includes a history of the smoking, or tobacco-related health factors, that were collected on or before the date of the Encounter. The data comes from the NE facility where the Encounter took place. 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 [facility] Aug 24, 2021 11:30 AM VA-TOBACCO USE MED [facility] Aug 24, 2021 11:30 AM VA-TOBACCO USE WI 30 MIN OF WAKEUP [facility] Aug 24, 2021 11:30 AM VA-TOBACCO USER EVERY DAY [facility] May 11, 2020 09:35 AM VA-TOBACCO DOESNT USE WI 30 MIN [facility] May 11, 2020 09:35 AM VA-TOBACCO USE 30 YEARS OR MORE [facility] May 11, 2020 09:35 AM VA-TOBACCO USE ADVICE [facility] May 11, 2020 09:35 AM VA-TOBACCO USE TELEVISION PICTURE TUBE REBUILDER NO [facility] May 11, 2020 09:35 AM VA-TOBACCO USE MED [facility] May 11, 2020 09:35 AM VA-TOBACCO USER EVERY DAY [facility] Jan 28, 2019 10:44 AM VA-TOBACCO DOESNT USE WI 30 MIN [facility] Jan 28, 2019 10:44 AM VA-TOBACCO USE 5 TO 15 YEARS [facility] Jan 28, 2019 10:44 AM VA-TOBACCO USE ADVICE [facility] Jan 28, 2019 10:44 AM VA-TOBACCO USE TELEVISION PICTURE TUBE REBUILDER NO [facility] Jan 28, 2019 10:44 AM VA-TOBACCO USE MED [facility] Jan 28, 2019 10:44 AM VA-TOBACCO USER EVERY DAY [facility] Nov 06, 2017 09:56 AM CURRENT SMOKER [facility]ADIRA [facility] Nov 06, 2017 09:56 AM V1-PT NOT INTEREST ED IN QUIT TOBACCO USE [facility] Sep 15, 2017 02:08 PM CURRENT SMOKER reports smoking about 1/2 pack small cigars/day [facility] Radiology Reports: +/- 30 days of the [...] the Encounter. The data comes from all [place] treatment facilities. Date/Time Radiology Report Provider Source Feb 08, 2025 11:21 AM LDCT LUNG CANCER SCREENING: LISSETTE HUTCHINS [id number] -[id number] M Ex Date: FEB 08, 2025@11:21 Req Phys: CHRISTI ARIAS Loc: [facility] LCS CHART CONSULT (Req'g L Img Loc: [facility]/CT Service: [place] [address] (Case [id number] COMPLETE) LDCT LUNG CANCER SCREENING (CT Detailed) CPT:11606 Reason for Study: Lung Cancer screening Clinical History: 25 TPY, current Comparison: CT thorax 02/06/24 Stable 5.9 mm in greatest dimension left lower lobe subpleural solid well-rounded nodule, 8-244. 02/04/23, 02/08/22. Report Status: Verified Date Reported: FEB 08, 2025 Date Verified: FEB 08, 2025 [employer] E-Sig:/ES/KEIRY FERRARI JR Report: Study: Lung cancer [...] reviewed. Secondary computer-aided detection with post-processing from [employer] is used. The lack of intravenous contrast [...] Primary Interpreting Staff: KEIRY FERRARI JR, Radiologist ([employer]) /[facility] DODD JR [facility] Encounter Notes: All associated encounter notes This section contains the clinical notes associated to the Encounter. Date/Time Encounter Note(s) Provider Source Mar 10, 2025 09:57 AM ADDENDUM: LOCAL TITLE: Addendum STANDARD TITLE: ADDENDUM DATE OF NOTE: MAR 10, 2025@09:57:48 ENTRY DATE: MAR 10, 2025@09:57:49 AUTHOR: EMELY PERLA EXP COSIGNER: URGENCY: STATUS: COMPLETED Please RTC /es/ Emely Perla PhD LP [facility] Coordinator and Staff Psychologist Signed: 03/10/2025 09:57 Receipt Acknowledged By: 03/10/2025 10:07 /caio/ DANIEL RESENDEZ ADVANCED CYTOLOGY MANAGER --- Original Document --- 03/08/25 PSYCHOLOGY NOTE: VISIT DURATION 50 minutes DIAGNOSES: Depression, tobacco use disorder [employer]ETERANS STATEMENT OF GOALS/CONCERNS: Nat's main concern this session: I'm depressed. I have no money. My health is crap and my legs don't work. I'm having bathroom issues. I wake up crying sometimes SESSION FOCUS: Nat reports he is depressed today. Risk is unchanged from chronic risk- passive thoughts of being better off or wanting to be , with no intent, plan, preparatory action, no previous attempts, no access to lethal means. Stressors include negative interactions with his son, financial issues, chronic health issues without recent exacerbation. He reports he plans to apply for service connection. He is working with a local [employer]. As always, brightens significantly during social/interpersonal contact. Tax Examining Technician made an attempt to gather information about service-related trauma. He reports he found his friend decapitated in a training accident while serving in either the [employer] or [employer](he served in both). Previous reports state he was informed of the . He also reports a long history of problem drinking of alcohol, and reports he stopped around 2019 because of COVID. He reports the event with his friend made him very sad and upset. Previously in Jul 2019, a previous therapist connected the irritiability, anger, aggression, and depression to this event. Tax Examining Technician today is not able to connect those symptoms to that event, though more assessment is warranted. He reports he still thinks about that event, and used to think about it more in the past, while working with Winifred Koch, former [facility] therapist. INTERVENTIONS: Psychotherapeutic Interventions: active listening, validation, Encouraging social connection Risk assessment Discussion of symptoms, assessment, service connection Readiness for change: Nat is in the [...] emotion, and social connection created by therapy. Tax Examining Technician's treatment plan is to increase social engagement and use MO to increase motivation to work on anger and/or behavioral activation. Tax Examining Technician's strong recommendation is for Nat to attend anger management and peer support group, EBP for PTSD, or PTSD W9 program. Elizabetht requests monthly supportive therapy check-ins. More frequent sessions are recommended to treat depression using CBT/behavioral activation, but given Nat's stated level of motivation and desire for supportive care, monthly sessions are appropriate. also meets with Camila Deutsch for social [...] No evidence 8. Mood was normal: yes dysthymic Other Observations: RISK ASSESSMENT: Risk: Nat's [...] session planned for: RTC 1 month Diagnoses: MDD,Recurrent Episode,Moderate - Major depressive disorder, recurrent, moderate (ICD-10-CM F33.1) (Primary) Procedures: Psychotherapy 38-52 min - Synchronous Telemedicine Service /caio/ Emely Perla PhD LP [facility] Coordinator and Staff Psychologist Signed: 03/10/2025 09:57 EMELY PERLA [facility] Mar 08, 2025 03:12 PM PSYCHOLOGY NOTE: LOCAL TITLE: PSYCHOLOGY NOTE STANDARD TITLE: PSYCHOLOGY NOTE DATE OF NOTE: MAR 08, 2025@15:12 ENTRY DATE: MAR 08, 2025@15:13:02 AUTHOR: EMELY PERLA EXP COSIGNER: URGENCY: STATUS: COMPLETED PSYCHOLOGY NOTE Has ADDENDA VISIT DURATION 50 minutes DIAGNOSES: Depression, tobacco use disorder [employer]ETERANS STATEMENT OF GOALS/CONCERNS: Nat's main concern this session: I'm depressed. I have no money. My health is crap and my legs don't work. I'm having bathroom issues. I wake up crying sometimes SESSION FOCUS: Nat reports he is depressed today. Risk is unchanged from chronic risk- passive thoughts of being better off or wanting to be , with no intent, plan, preparatory action, no previous attempts, no access to lethal means. Stressors include negative interactions with his son, financial issues, chronic health issues without recent exacerbation. He reports he plans to apply for service connection. He is working with a local [employer]. As always, sahil brightens significantly during social/interpersonal contact. Tax Examining Technician made an attempt to gather information about service-related trauma. He reports he found his friend decapitated in a training accident while serving in either the [employer] or [employer](he served in both). Previous reports state he was informed of the . He also reports a long history of problem drinking of alcohol, and reports he stopped around 2019 because of COVID. He reports the event with his friend made him very sad and upset. Previously in Jul 2019, a previous therapist connected the irritiability, anger, aggression, and depression to this event. Tax Examining Technician today is not able to connect those symptoms to that event, though more assessment is warranted. He reports he still thinks about that event, and used to think about it more in the past, while working with Winifred Koch, former [facility] therapist. INTERVENTIONS: Psychotherapeutic Interventions: active listening, validation, Encouraging social connection Risk assessment Discussion of symptoms, assessment, service connection Readiness for change: Nat is in the [...] emotion, and social connection created by therapy. Tax Examining Technician's treatment plan is to increase social engagement and use MO to increase motivation to work on anger and/or behavioral activation. Tax Examining Technician's strong recommendation is for Nat to attend anger management and peer support group, EBP for PTSD, or PTSD W9 program. Nat requests monthly supportive therapy check-ins. More frequent sessions are recommended to treat depression using CBT/behavioral activation, but given Nat's stated level of motivation and desire for supportive care, monthly sessions are appropriate. [place] also meets with Camila Deutsch for social [...] No evidence 8. Mood was normal: yes dysthymic Other Observations: RISK ASSESSMENT: Risk: Nat's [...] do anything or go through with it'. Vet does not use intoxicating substances which would [...] session planned for: RTC 1 month Diagnoses: MDD,Recurrent Episode,Moderate - Major depressive disorder, recurrent, moderate (ICD-10-CM F33.1) (Primary) Procedures: Psychotherapy 38-52 min - Synchronous Telemedicine Service /caio/ Emely Perla PhD, LP [facility] Coordinator and Staff Psychologist Signed: 03/10/2025 09:57 03/10/2025 ADDENDUM STATUS: COMPLETED Please RTC /caio/ Emely Perla PhD, LP [facility] Coordinator and Staff Psychologist Signed: 03/10/2025 09:57 Receipt Acknowledged By: * AWAITING SIGNATURE * DANIEL RESENDEZ [place] [place]
--- OUTSIDE RECORDS SUMMARY | 2025-03-18 07:30 | XMS_ITS | Encounter Summary ---
Author Name [facility] [place] Organization [facility] [place] Address [address] [place] [id number] Care Team Providers Care Control Specialist Name Role Phone CHRISTI ARIAS Primary [...] to Policy [facility] ([place] MEDICARE ADVANTAGE [facility] ([place]) Nov 17, 2017 NONE [id number] DARRELL HUTCHINS PATIENT [facility] ([place] MEDICARE ADVANTAGE [facility] ([place]) Nov 17, 2017 [id number] DARRELL HUTCHINS PATIENT [facility]ICAID [facility] Jan 15, 2017 MEDICAI D [id number] DARRELL HUTCHINS PATIENT Selected Encounter This section includes the information on record at [place] for the Encounter. Date/Time Encounter Type Encounter Description Reason Provider Source March 18, 2025 11:30 AM OFFICE O/P EST HI 40 MIN PRIMARY CARE/MEDICINE ICD-10-CM I10 Essential (primary) hypertension SAPPHIREHEMANTHMARGARITA GARZALEN Molina [facility] Encounter Template Text not used by [facility] Assessments - Encounter Diagnoses This section includes the primary and secondary diagnoses documented for the Encounter. Date/Time Primary/Secondary Diagnosis Diagnosis Name Provider Source March 20, 2025 02:37 PM PRIMARY Essential (primary) hypertension SAPPHIRE[facility]OSUNITA[facility] March 20, 2025 02:37 PM SECONDARY Actinic keratosis [facility]DIN[facility] March 20, 2025 02:37 PM SECONDARY Athscl heart disease of agdaagux coronary artery w/o ang pctrs [facility] March 20, 2025 02:37 PM SECONDARY Cardiac arrhythmia, unspecified [facility] March 20, 2025 02:37 PM SECONDARY Deficiency of other specified B group vitamins [facility] March 20, 2025 02:37 PM SECONDARY Diarrhea, unspecified NADAZDIN-[facility] March 20, 2025 02:37 PM SECONDARY Headache, unspecified [facility] March 20, 2025 02:37 PM SECONDARY Hyperlipidemia, unspecified [facility] March 20, 2025 02:37 PM SECONDARY Insomnia, unspecified [facility] March 20, 2025 02:37 PM SECONDARY Other abnormalities of gait and mobility [facility] March 20, 2025 02:37 PM SECONDARY Paresthesia of skin [facility] March 20, 2025 02:37 PM SECONDARY Post-traumatic stress disorder, unspecified NADAZDIN-[facility]KO [facility] March 20, 2025 02:37 PM SECONDARY Tinea unguium [facility] March 20, 2025 02:37 PM SECONDARY Tobacco use SAPPHIREAZDIN-BOSKO [facility] March 20, 2025 02:37 PM SECONDARY Type 2 diabetes mellitus with diabetic polyneuropathy ZIYAD CANELACHRISTI Molina [place] March 20, 2025 02:37 PM SECONDARY Type 2 diabetes mellitus with hyperglycemia KIKEJAQUELIN CANELACHRISTI Molina [place] March 20, 2025 02:37 PM SECONDARY Venous insufficiency (chronic) (peripheral) STEVETA CANELACHRISTI Molina [place] March 20, 2025 02:37 PM SECONDARY Vitamin D deficiency, unspecified VIVIANAVIOLA CANELACHRISTI Molina [place] Plan of Treatment: Future Appointments (+ 6 months) and Future Tests (+/- 45 days) The Plan of Treatment section includes future care activities for the patient [facility] [place] [facility] [place] This section includes future appointments and future orders which are active, pending or scheduled. Future Appointments This section includes appointments that were scheduled to occur 6 months from the date of the Encounter, up to a maximum of 20 appointments. The data comes from all [facility] facilities. Appointment Date/Time Appointment Type Appointme nt Facility Name April 04, 2025 12:30 PM AMBULATORY - [facility]ICINE [facility] April 12, 2025 02:00 PM AMBULATORY - REH[facility]ICIN [facility] April 12, 2025 02:15 PM AMBULATORY - MEDICINE [facility] April 15, 2025 01:30 PM AMBULATORY - MEDICINE [facility] Apr 20, 2025 02:30 PM AMBULATORY - PSYCHIATRY [facility] May 02, 2025 01:00 PM AMBULATORY - MEDICINE [place] [facility] Jun 06, 2025 02:00 PM AM[facility]ULATORY - MEDICINE [facility] Jun 13, 2025 01:00 PM AMBULATORY - MEDICINE [place] [facility] Jun 14, 2025 01:00 PM AMBULATORY - PSYCHIATRY [facility] Jun 14, 2025 02:00 PM AMBULATORY - PSYCHIATRY [facility] Jul 12, 2025 01:00 PM AMBULATORY - PSYCHIATRY [facility] Jul 22, 2025 01:00 PM AMBULATORY - MEDICINE [facility] Jul 29, 2025 01:30 PM AMBULATORY - PSYCHIATRY [facility] Aug 23, 2025 02:00 PM AMBULATORY - PSYCHIATRY [facility] Lab Results: +/- 30 days of the encounter This section includes the Chemistry and Hematology Lab Results on record with [place] for the patient. Radiology Reports and Pathology Reports are provided separately, in subsequent sections. Lab Results This section contains the Chemistry/Hematology Results that were resulted 30 days before or 30 daysafter the date of the Encounter. Date/Time Source Result Type Result - Unit Interpretation Reference Range Specimen Type Comment Feb 17, 2025 01:36 PM [facility] LIPID PANEL FASTING SERUM Specimen Type: SERUM No comment entered. Ordering Provider: LAMBERTO MIKE Report Released Date/Time: Feb 17, 2025 12:49 PM Reporting Lab: [address] [address] Performing Lab: [address] [address] CHOLESTEROL 140 mg/dL TRIGLYCERIDE 108 mg/dL 0-150 LDL calculated 72 mg/dL 0-129 CHOL/HDL 3.0 HDL CHOLESTEROL 46 mg/dL 40-60 Feb 17, 2025 01:36 PM [facility] HEMOGLOBIN A1C PANEL BLOOD Specimen Type: [...] Feb 17, 2025 12:49 PM Reporting Lab: [address] [address] Performing Lab: [address] [address] HEMOGLOBIN A1C 8.7 H 4.0-5.6 Feb 17, 2025 01:36 PM [facility] BASIC METABOLIC PANEL (fasting) SERUM Specime n Type: SERUM No comment entered. Ordering Provider: LAMBERTO MIKE Report Released Date/Time: Feb 17, 2025 12:49 PM Reporting Lab: [address] [place] [place] [address] Performing Lab: [facility] [address] [address] UREA NITROGEN 15 mg/dL 7-25 GLUCOSE 75 mg/dL 65-100 SODIUM 134 mmol/L L 135-145 POTASSIUM 3.9 mmol/L 3.5-5.0 CHLORIDE 105 mmol/L 100-110 CO2 22 meq/L 20-30 CALCIUM 9.3 mg/dL 8.5-10.2 CREATININE, Serum 0.87 mg/dL 0.50-1.40 eGFR(CKD-EPI 2020) >90 mL/min >60 Feb 17, 2025 01:36 PM [facility] MICROALBUMIN CREATININE RATIO PANEL URINE Spe cimen Type: URINE No comment entered. Ordering Provider: LAMBERTO MIKE Report Released Date/Time: Feb 17, 2025 12:49 PM Reporting Lab: [address] [address] Performing Lab: [address] [address] MICROALBUMIN/CREATININE RATIO 17.0 mg/g 0-29.9 MICROALBUMIN,QUANTITATIVE 3.6 mg/dL RR U NAVAIL CREATININE URINE 211.81 mg/dL Feb 17, 2025 01:36 PM [facility] CBC BLOOD Specimen Type: BLOOD No comment entered. Ordering Provider: LAMBERTO MIKE Report Released Date/Time: Feb 17, 2025 12:49 PM Reporting Lab: [address] [address] Performing Lab: [address] [address] WBC 10.02 10*3/uL 4.50-11.00 RBC 4.82 10*6/uL 4.23-5.66 HGB 14.7 g/dL 12.8-17 HCT 43.0 39.2-50.4 MCV 89.2 fL 82-99 MCHC 34.2 g/dL 30.8-35.1 PLT 207 10*3/uL 140-360 MPV 11.5 fL 9.2-12.4 RDW-CV 13.9 12.0-16.0 MCH 30.5 pg 26.2-32.6 Vital Signs: All taken on the encounter date This section contains inpatient and outpatient Vital Signs collected on the date of the Encounter. Date/Time Temperature Pulse Blood Pressure Respiratory Rate SP02 Pain Height Weight Body Mass Index Source March 18, 2025 11:41 AM 96.9 90 137/81 19 97 74 250 32 [facility] Social History: Smoking Status (Most current) and Tobacco Use (All prior to encounter date) This section includes the most current, and the historical, smoking and tobacco- related health factors from the [place] facility where the Encounter took place. Current Smoking Status This section includes the most current smoking, or tobacco-related health factor, from the [place] facility where the Encounter took place. Date/Time Current Smoking Status Comment Facil ity Aug 24, 2021 11:30 AM VA-TOBACCO USER EVERY DAY [place] Tobacco Use History This section includes a history of the smoking, or tobacco-related health factors, that were collected on or before the date of the Encounter. The data comes from the [place] facility where the Encounter took place. 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 [place] May 11, 2020 09:35 AM VA-TOBACCO USE MED NO [place] May 11, 2020 09:35 AM VA-TOBACCO USER EVERY DAY [place] Jan 28, 2019 10:44 AM VA-TOBACCO DOESNT USE WI 30 MIN WATERLOOUP [place] Jan 28, 2019 10:44 AM VA-TOBACCO USE 5 TO 15 YEARS [place] Jan 28, 2019 10:44 AM VA-TOBACCO USE ADVICE [place] Jan 28, 2019 10:44 AM VA-TOBACCO USE 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 Date/Time Encounter Note(s) Provider Source March 26, 2025 07:22 PM ADDENDUM: LOCAL TITLE: Addendum STANDARD TITLE: ADDENDUM DATE OF NOTE: MARCH 26, 2025@19:22:38 ENTRY DATE: MARCH 26, 2025@19:22:39 AUTHOR: Alli ARIAS COSIGNER: URGENCY: STATUS: COMPLETED Please place new order for colonoscopy at [facility] if patient is in agreement thank you /caio/ CHRISTI ARIAS MD PHYSICIAN Signed: 03/26/2025 19:22 Receipt Acknowledged By: 04/01/2025 09:06 /caio/ SONYA RILEY RN REGISTERED NURSE --- Original Document --- 03/18/25 NOTE: Pt is pleasant 75 y/o M with PMH of obesity, HTN, HL, DM2, nonobstructive CAD, PVI, MDD, PTSD last visit 10/[address] 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 Dr Wynn 10/2024-> Dx PVI -> RTC 6m -- neurology [facility] -h/a -- GI Dr Smith and Dr. Norton -[facility] -- [facility] Patient reports feeling well Patient with limited functionality due to chronic issues with balance walking with a stick, very slowly #HTN/HL/CAD not checking BP at home compliant with medications denies CP/SOB/JEWELL/palpitations/dizzi ness /claudication denies h/o [place]/CVA Since last visit underwent cardiac catheterization for positive nuclear stress test (inferior and inferolateral regions) 12/2024 left cardiac cath: (See full report below) There was no critical or obstructive CAD to explain abnormal nuclear stress test, nuclear stress test showed RCA territory ischemia Patient asymptomatic no typical symptoms with exertion Recommendation is to continue medical treatment Aspirin 81 indefinitely Aggressive risk factor modification for primary prevention # Tobacco use Reports nicotine patch and gum not working, He cut smoking to few puffs --3-4 skinny cigars daily #PVI- f/w nonVA PCP #Lower legs skin stasis changes, no open wounds, dry scaling skin seen by [facility] vascular surgery 2023 ROSE > 1 bilaterally He has reflux in both saphenous veins Due to hospitalization has not started using pneumatic compression device, will call today to schedule with PT to go over instructions Since last visit treated for cellulitis Currently no open wounds #Obesity BMI 32 #DM2 On semaglutide 0.5 mg weekly Could not tolerate higher dose due to nausea vomiting diarrhea Currently taking: Non-VA METFORMIN 1000MG BID SEMAGLUTIDE 0.5mg ASPART 30 units BID (although prescribed 18 to 20 units twice daily) GLARGINE 30 units BID (prescribed 32 units twice daily) Avoiding sugar containg drinks He admits dietary indiscretions, likes candies denies p/p/p Patient reports few episodes of symptomatic hypoglycemia Had to stop at the side of the road due to shakiness Glucose was in the low 50s, he did not have glucose tablets with him Last 7 days readings Very high 15% High 21% 61% in range 2% low 1% very low Patient with known history of misusing aspart He is educated to use aspart prior to meals Not candidate for increased dose of Ozempic due to GI side effects, nausea and diarrhea #Knee pain #Bilateral knee osteoarthritis #Left pathologic fracture-subacute after fall f/w NEOS s/p injection, with improvement in sx # Gait instability-agreed to physical therapy for fall evaluation, assistive device, strengthening # Right arm paresthesia, numbness, difficulties buttoning shirt Mostly affecting first 3 fingers PAST MEDICAL HISTORY: -- Obesity -- HL [...] with fusion/pating 11/2015 ALLERGIES:NKDA MEDICATIONS: Reconciled today ==Non-VA ASPIRIN 81MG ==ATORVASTATIN CALCIUM 40MG ==Non-VA METOPROLOL TARTRATE 25MG BID ==Non-VA METFORMIN HCL 1000MG BID ==SEMAGLUTIDE 0.5MG/0.375ML ONCE A WEEK (2mg since 07/30/24) ==INSULIN,ASPART 20 units BID AC ==INSULIN,GLARGINE 30 units BID ==LOPERAMIDE HCL 2MG CAP TAKE ONE ==Non-VA CYANOCOBALAMIN TAB Non-VA FISH OIL ==MgO 420mg DAILY ==Non-VA GABAPENTIN 300MG TID ==MELATONIN 1MG CAP/TAB BEDTIME NEEDED INSOMNIA ==MIRTAZAPINE 30MG ==DULOXETINE 60MG TAB ==TOPIRAMATE 25MG BID FOR ANXIETY/HEADACHE (OFF LABEL FOR ANXIETY) ==AMMONIUM LACTATE 12% LOTION ==MUPIROCIN 2% OINT ==Non-VA VITAMIN B COMPLEX CAP,ORAL BY MOUTH ACTIVE ==Non-VA VITAMIN D3 (CHOLECALCIFEROL) TAB BY MOUTH ACTIVE FAMILY HISTORY: --DM: father d 52 (diabetic) --Cancer: no --[place]: father d 52 (diabetic) --CVA: mother in 40s (hemorrhagic stroke) SOCIAL HISTORY: --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 Son is supportive but he has his own difficulties w/ Crohns disease. 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 enjoys reading [employer] books still driving --Children: 3 biological children, [...] MSK: left knee pain s/p injection f/w NEOS, R arm paresthesia Skin: Lower extremities bilaterally dry/erythematous skin with scaling - no open wounds, ambulates with a stick PHYSICAL EXAM: Vital Signs: Blood Pressure: 137/81 (03/18/2025 11:41) 121/75 (10/28/2024 15:31) 116/72 (09/10/2024 14:17) 135/73 (05/06/2024 10:21) 126/78 08/2023 135/80 (12/20/2022 14:42) 167/74 (12/20/2022 14:05)--> repeat manual 135/80 131/79 (12/18/2021 14:43) Pulse: 90 (03/18/2025 11:41) Respiration: 18 Temperature: 96.9 F [36.1 C] (03/18/2025 11:41) Patient Weight: BMI 33 03/18/2025 11:41 250 lb [113.40 kg] 10/28/2024 15:31 252 lb [114.31 kg] 09/10/2024 [...] to MF using stick for assistance LABORATORY: CBC TREND Collection DT Spec WBC RBC HGB HCT MCV MCH PLT 02/17/2025 13:36 BLOOD 10.02 4.82 14.7 43.0 89.2 30.5 207 10/25/2024 13:16 BLOOD 8.22 4.68 14.5 41.4 88.5 31.0 229 05/04/2024 14:38 BLOOD 10.19 4.49 14.2 41.7 92.9 31.6 181 08/06/2023 14:47 BLOOD 6.63 4.63 14.2 41.4 89.4 30.7 161 07/08/2023 09:40 BLOOD 7.61 4.59 14.1 41.2 89.8 30.7 179 Collection DT Spec TSH 10/25/2024 13:16 SERUM 1.28 LAB CUMULATIVE SELECTED Collection DT Spec GLUCOSE BUN CREATIN Sodium K+/Pot CL CO2 02/17/2025 13:36 SERUM 75 15 0.87 134 L 3.9 105 22 10/25/2024 13:16 SERUM 197 H 18 0.83 137 3.4 L 105 24 05/04/2024 14:38 SERUM 164 H 17 0.80 138 4.0 108 21 07/08/2023 09:40 SERUM 124 H 15 0.76 139 3.4 L 105 24 12/31/2022 13:45 SERUM 230 H 11 0.75 133 L 4.2 101 23 HEMOGLOBIN A1C TREND Collection DT Spec HGBA1c 02/17/2025 13:36 BLOOD 8.7 H 10/25/2024 13:16 BLOOD 9.4 H 08/20/2024 13:47 BLOOD 7.4 H 05/04/2024 14:38 BLOOD 8.7 H 08/06/2023 14:47 BLOOD 6.4 H LIVER PANEL TREND Collection DT Spec AST ALT T BILI ALK JEREMY T. PROT ALBUMIN 10/25/2024 13:16 SERUM 10 9 0.8 53 6.3 3.2 L 05/04/2024 14:38 SERUM 12 15 1.1 52 6.8 3.7 08/06/2023 14:47 SERUM 11 11 0.7 49 6.4 3.6 12/31/2022 13:45 SERUM 11 13 1.0 56 7.0 3.8 11/30/2021 11:17 SERUM 13 9 1.3 H 46 7.2 3.8 LIPID PANEL TREND Collection DT Spec CHOL HDL CHO/HDL LDL-d LDL-c TRIG 02/17/2025 13:36 SERUM 140 46 3.0 72 108 10/25/2024 13:16 SERUM 132 29 L 4.6 71 161 H 05/04/2024 14:38 SERUM 177 53 3.3 99 127 08/06/2023 14:47 SERUM 133 37 L 3.6 68 141 12/31/2022 13:45 SERUM 167 48 3.5 100 97 PSA TREND Collection DT Spec PSA SR- 05/04/2024 14:38 SERUM 0.71 12/31/2022 13:45 SERUM 0.66 10/27/2017 09:13 SERUM 0.63 MICROALB/CR RATIO: 17.0 MICROALBUMIN URINE: 3.6 CREATININE URINE: 211.81 --06/2024-- BNP: 73 CALCIUM: 9.1 MAGNESIUM: 1.4 L VIT. B12 (WROX): 677 VITAMIN D TOTAL: 27 IMAGING: #CTH 11/18/2017 c/o increasingly worse headache episodes Impression No intra-cranial hemorrhage. No abnormal contrast enhancement in the brain. No significant stenosis, occlusion or aneurysm of the major intracranial arteries. Moderate chronic ischemic white matter changes. #LDCT 01/2025 Lung-RADS Assessment: Category 2, benign appearance or behavior. cancer screening CT in 12 months. Index Nodule: Stable 5.9 mm solid, round, well-circumscribed, juxtapleural left lower lobe pulmonary nodule, 8-242. Other Nodules: None Emphysema: Mild scattered bullous emphysematous changes with associated scattered parenchymal scarring is unchanged. Atherosclerotic changes of the aorta and coronary arteries. Status post cholecystectomy. Mild symmetric gynecomastia changes again seen. ACDF hardware partially visualized. #EKG 04/2024: Sinus rhythm at 81 bpm [...] enlargement; however 3 TID is only 1.15. Summary 1.) Abnormal myocardial perfusion imaging following regadenoson administration. There is evidence of inferior lateral as well as inferior ischemia. 2.) Normal rest and post-stress left ventricular chamber size and systolic function without regional wall motion abnormalities. #12/2024 cardiac cath showed normal left ventricular filling pressure, normal systemic pressures, no significant gradient across aortic valve, normal left ventricular systolic function Coronary angiogram showed right dominant system RCA is large in caliber with mild diffuse disease Left main is medium to large in caliber with mild diffuse disease LAD is large in size with mild diffuse disease Proximal to mid segment CAD 60% heavily calcified diffuse disease There is a medium size ramus branch with severely calcified 70 to 80% stenosis in proximal segment LCx is medium to large in caliber with mild luminal irregularities There was no critical or obstructive CAD to explain abnormal nuclear stress test, nuclear stress test showed RCA territory ischemia Patient asymptomatic no typical symptoms with exertion #07/2024 ROSE greater than 1 bilaterally #2023 Venous Doppler-has reflux in both saphenous veins tough they are not particularly enlarged ASSESSMENT/PLAN: Pt is 75 y/o M with PMH of obesity, HTN, HL, DM2, nonobstructive CAD, MDD, PTSD here today for follow-up #HTN - well controlled -c/w metoprolol 25 mg twice daily #Nonobstructive CAD, cardiac cath 12/2024 -Continue with BB, high intensity statin, aspirin -Follow-up with cardiology 03/22 #HL: well controlled LDL 72,Target LDL-C<70 mg/dl. -c/w atorvastatin 40 mg #Arrhythmia: holter 05/2024 Frequent PVCs 7.9 %,Multiple episodes of Non-sustained VT ECHO 2023 LVEF 50% -patient denies presyncope, syncope, palpitations -f/w cardiology #DM2: uncontrolled A1c 8.7 - managed by non VA PCP and CPP Written instructions provided today -c/w metformin 1000mg BID -c/w glargine 30 units BID -c/w bolus insulin 20 units bid -c/w semaglutide to 0.5 mg weekly, consider increasing to 1 mg and monitor for side effects, patient to address with CPP at next visit (GI symptoms nausea and vomiting while on 2mg) -Consider adding SGLT2i -feet: Extensive onycholysis and keratoderma -> to schedule f/u with podiatry -eye: 01/2025 diabetes without retinopathy or macular edema OU #Active tobacoo user: not ready to quit-declines referral to SCP -Continue with lung cancer screening #PVI - chronic venous stasis skin changes, no edema today No open wounds-discharge from [facility] encouraged compression stocking/leg elevation Discussed regular moisturizer use, wash with Hibiclens -f/w Dr Wynn vascular surgery q6m, plan to obtain carotid US at next visit -s/w Flexitough Plus Advanced Pneumatic Compression System #Unsteady gait, history of falls: Etiology likely multifactorial in the setting peripheral neuropathy, lumbar spine DDD, cervical spondylosis seen by neurology recommended physical therapy but patient declined in the past, Today agreed to trial of physical therapy for gait evaluation, strengthening -Fall precautions reviewed -He ambulates with a walking stick #Low back pain-lumbar DDD -Continue with gabapentin [...] with loperamide 2 mg AC as needed ---> last time used 2 weeks ago #h/o Gastritis, chronic duodenitis: Asymptomatic EGD 08/2022 diffuse erythema and nodular appearing mucosa in the gastric body Few chronic appearing erosions in the prepyloric area as well as patchy erythema in the duodenal bulb with also 10 mm benign-appearing nodule in the apex of the bulb-biopsies benign, negative H. pylori and celiac disease-changes c/w chronic active duodenitis f/w [facility] #Actinic keratosis scalp -cryotherapy by [place] dermatology #MDD, PTSD: Chronically depressed, denies SI today -f/w MELATONIN MIRTAZAPINE 30MG DULOXETINE 60mg TOPIRAMATE 25MG BID FOR ANXIETY #left hand weakness, numbness mostly first 3 fingers -likely CTS -Referral to Occupational Therapy and will obtain EMG/NCS Healthcare maintenance: --Lipids: LDL 72 (02/2025) --Diabetes: A1c 8.7 (02/2025) --Colon CA (45-75): Overdue since 2021 Personal h/o TA 02/2017 1 TA removed from cecum-> repeat 5 years 08/2022 EGD -gastritis and duodenitis in process of scheduling colonoscopy [facility] --GI (only EGD performed because patient did not complete colon prep) --Lung CA: due 01/2026 --PSA PSA 0.71 (04/2024) --AAA (smoker/65): 2019 no AAA --Influenza (yrly): 2023 --COVID: x3, 2023 --PCV20 2022 --PCV23: 2021 --RZV (>50yrs, x2): --TDAP: --Hep C screen: 2016 negative --HIV screen: --DEXA: --Advanced Directives: Comanagement - prefers to have most aspects of health maintenance, chronic condition(s) and medication management to non-VA PCP. Address at next visit: ?CTS right vs CS radiculopathy Return to clinic to see me in 4 months, sooner PRN. Virtual ( ), F2F ( x ) (x )fasting labs ordered prior to f/u ( )no labs needed ( )request records from outside providers Medication Reconciliation: Outpatient: Has the patient been taking medications as documented in the EMLR? No: Discrepencies were identified. See below. Essential Medication List for Review used to complete this medication reconciliation. INCLUDED IN THIS LIST: Alphabetical list of active outpatient prescriptions dispensed from this [place] (local) and dispensed from another VA or DoD facility (remote) as well as inpatient orders (local, pending and active), local clinic medications, locally documented non-VA medications, and local prescriptions that have or been discontinued in the past 90 days. - Discrepancies were identified, addressed, and discussed with the patient/caregiver at this encounter. Discrepancies: chart updated - All changes in medications, including all non-VA/Herbal/OTC medications were entered into CPRS. - If there were any medications the patient should no longer take, they were discontinued. - The patient/caregiver was instructed to update this list, discard old lists, and take this list to the next appointment, whether with a VA or non-VA provider. /caio/ CHRISTI ARIAS MD PHYSICIAN Signed: 03/20/2025 14:37 04/01/2025 ADDENDUM STATUS: COMPLETED Called without success. Left generic/ HIPAA-compliant message on voicemail not identified in outgoing message requesting call back to PACT. Return call number was provided. Colonoscopy consult placed and held for PCP signature. /caio/ SONYA RILEY RN REGISTERED NURSE Signed: 04/01/2025 09:06 CATIA ARIAS MONTVERDE March 18, 2025 11:30 AM PHYSICIAN NOTE: LOCAL TITLE: NOTE STANDARD TITLE: PHYSICIAN NOTE DATE OF NOTE: MARCH 18, 2025@11:30 ENTRY DATE: MARCH 18, 2025@06:46:30 AUTHOR: Alli ARIAS COSIGNER: URGENCY: STATUS: COMPLETED NOTE Has ADDENDA Pt is pleasant 75 y/o M with PMH of obesity, HTN, HL, DM2, nonobstructive CAD, PVI, MDD, PTSD last visit 10/[address] Mode Wiggins since [place] [facility] [place] Other providers: -- [facility] -- podiatry [place] -- tactical debriefer officer, Dr.Bhat Cruz next 04/01 -- endocrinology NON VA KASSI Michael last 05/2021 -- vascular surgery [facility] Dr Wynn 10/2024-> Dx PVI -> RTC 6m -- neurology [place] -h/a -- GI Dr Smith and Dr. Norton -[facility] -- [facility] Patient reports feeling well Patient with limited functionality due to chronic issues with balance walking with a stick, very slowly #HTN/HL/CAD not checking BP at home compliant with medications denies CP/SOB/JEWELL/palpitations/dizzi ness /claudication denies h/o [place]/CVA Since last visit underwent cardiac catheterization for positive nuclear stress test (inferior and inferolateral regions) 12/2024 left cardiac cath: (See full report below) There was no critical or obstructive CAD to explain abnormal nuclear stress test, nuclear stress test showed RCA territory ischemia Patient asymptomatic no typical symptoms with exertion Recommendation is to continue medical treatment Aspirin 81 indefinitely Aggressive risk factor modification for primary prevention # Tobacco use Reports nicotine patch and gum not working, He cut smoking to few puffs --3-4 skinny cigars daily #PVI- f/w nonVA PCP #Lower legs skin stasis changes, no open wounds, dry scaling skin seen by [facility] vascular surgery 2023 ROSE > 1 bilaterally He has reflux in both saphenous veins Due to hospitalization has not started using pneumatic compression device, will call today to schedule with PT to go over instructions Since last visit treated for cellulitis Currently no open wounds #Obesity BMI 32 #DM2 On semaglutide 0.5 mg weekly Could not tolerate higher dose due to nausea vomiting diarrhea Currently taking: Non-VA METFORMIN 1000MG BID SEMAGLUTIDE 0.5mg ASPART 30 units BID (although prescribed 18 to 20 units twice daily) GLARGINE 30 units BID (prescribed 32 units twice daily) Avoiding sugar containg drinks He admits dietary indiscretions, likes candies denies p/p/p Patient reports few episodes of symptomatic hypoglycemia Had to stop at the side of the road due to shakiness Glucose was in the low 50s, he did not have glucose tablets with him Last 7 days readings Very high 15% High 21% 61% in range 2% low 1% very low Patient with known history of misusing aspart He is educated to use aspart prior to meals Not candidate for increased dose of Ozempic due to GI side effects, nausea and diarrhea #Knee pain #Bilateral knee osteoarthritis #Left pathologic fracture-subacute after fall f/w NEOS s/p injection, with improvement in sx # Gait instability-agreed to physical therapy for fall evaluation, assistive device, strengthening # Right arm paresthesia, numbness, difficulties buttoning shirt Mostly affecting first 3 fingers PAST MEDICAL HISTORY: -- Obesity -- HL [...] with fusion/pating 11/2015 ALLERGIES:NKDA MEDICATIONS: Reconciled today ==Non-VA ASPIRIN 81MG ==ATORVASTATIN CALCIUM 40MG ==Non-VA METOPROLOL TARTRATE 25MG BID ==Non-VA METFORMIN HCL 1000MG BID ==SEMAGLUTIDE 0.5MG/0.375ML ONCE A WEEK (2mg since 07/30/24) ==INSULIN,ASPART 20 units BID AC ==INSULIN,GLARGINE 30 units BID ==LOPERAMIDE HCL 2MG CAP TAKE ONE ==Non-VA CYANOCOBALAMIN TAB Non-VA FISH OIL ==MgO 420mg DAILY ==Non-VA GABAPENTIN 300MG TID ==MELATONIN 1MG CAP/TAB BEDTIME NEEDED INSOMNIA ==MIRTAZAPINE 30MG ==DULOXETINE 60MG TAB ==TOPIRAMATE 25MG BID FOR ANXIETY/HEADACHE (OFF LABEL FOR ANXIETY) ==AMMONIUM LACTATE 12% LOTION ==MUPIROCIN 2% OINT ==Non-VA VITAMIN B COMPLEX CAP,ORAL BY MOUTH ACTIVE ==Non-VA VITAMIN D3 (CHOLECALCIFEROL) TAB BY MOUTH ACTIVE FAMILY HISTORY: --DM: father d 52 (diabetic) --Cancer: no --AZ: father d 52 (diabetic) --CVA: mother in 40s (hemorrhagic stroke) SOCIAL HISTORY: --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 Son is supportive but he has his own difficulties w/ Crohns disease. 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 enjoys reading [employer] books still driving --Children: 3 biological children, [...] MSK: left knee pain s/p injection f/w NEOS, R arm paresthesia Skin: Lower extremities bilaterally dry/erythematous skin with scaling - no open wounds, ambulates with a stick PHYSICAL EXAM: Vital Signs: Blood Pressure: 137/81 (03/18/2025 11:41) 121/75 (10/28/2024 15:31) 116/72 (09/10/2024 14:17) 135/73 (05/06/2024 10:21) 126/78 08/2023 135/80 (12/20/2022 14:42) 167/74 (12/20/2022 14:05)--> repeat manual 135/80 131/79 (12/18/2021 14:43) Pulse: 90 (03/18/2025 11:41) Respiration: 18 Temperature: 96.9 F [36.1 C] (03/18/2025 11:41) Patient Weight: BMI 33 03/18/2025 11:41 250 lb [113.40 kg] 10/28/2024 15:31 252 lb [114.31 kg] 09/10/2024 [...] to MF using stick for assistance LABORATORY: CBC TREND Collection DT Spec WBC RBC HGB HCT MCV MCH PLT 02/17/2025 13:36 BLOOD 10.02 4.82 14.7 43.0 89.2 30.5 207 10/25/2024 13:16 BLOOD 8.22 4.68 14.5 41.4 88.5 31.0 229 05/04/2024 14:38 BLOOD 10.19 4.49 14.2 41.7 92.9 31.6 181 08/06/2023 14:47 BLOOD 6.63 4.63 14.2 41.4 89.4 30.7 161 07/08/2023 09:40 BLOOD 7.61 4.59 14.1 41.2 89.8 30.7 179 Collection DT Spec TSH 10/25/2024 13:16 SERUM 1.28 LAB CUMULATIVE SELECTED Collection DT Spec GLUCOSE BUN CREATIN Sodium K+/Pot CL CO2 02/17/2025 13:36 SERUM 75 15 0.87 134 L 3.9 105 22 10/25/2024 13:16 SERUM 197 H 18 0.83 137 3.4 L 105 24 05/04/2024 14:38 SERUM 164 H 17 0.80 138 4.0 108 21 07/08/2023 09:40 SERUM 124 H 15 0.76 139 3.4 L 105 24 12/31/2022 13:45 SERUM 230 H 11 0.75 133 L 4.2 101 23 HEMOGLOBIN A1C TREND Collection DT Spec HGBA1c 02/17/2025 13:36 BLOOD 8.7 H 10/25/2024 13:16 BLOOD 9.4 H 08/20/2024 13:47 BLOOD 7.4 H 05/04/2024 14:38 BLOOD 8.7 H 08/06/2023 14:47 BLOOD 6.4 H LIVER PANEL TREND Collection DT Spec AST ALT T BILI ALK JEREMY T. PROT ALBUMIN 10/25/2024 13:16 SERUM 10 9 0.8 53 6.3 3.2 L 05/04/2024 14:38 SERUM 12 15 1.1 52 6.8 3.7 08/06/2023 14:47 SERUM 11 11 0.7 49 6.4 3.6 12/31/2022 13:45 SERUM 11 13 1.0 56 7.0 3.8 11/30/2021 11:17 SERUM 13 9 1.3 H 46 7.2 3.8 LIPID PANEL TREND Collection DT Spec CHOL HDL CHO/HDL LDL-d LDL-c TRIG 02/17/2025 13:36 SERUM 140 46 3.0 72 108 10/25/2024 13:16 SERUM 132 29 L 4.6 71 161 H 05/04/2024 14:38 SERUM 177 53 3.3 99 127 08/06/2023 14:47 SERUM 133 37 L 3.6 68 141 12/31/2022 13:45 SERUM 167 48 3.5 100 97 PSA TREND Collection DT Spec PSA SR- 05/04/2024 14:38 SERUM 0.71 12/31/2022 13:45 SERUM 0.66 10/27/2017 09:13 SERUM 0.63 MICROALB/CR RATIO: 17.0 MICROALBUMIN URINE: 3.6 CREATININE URINE: 211.81 --06/2024-- BNP: 73 CALCIUM: 9.1 MAGNESIUM: 1.4 L VIT. B12 (WROX): 677 VITAMIN D TOTAL: 27 IMAGING: #CTH 11/18/2017 c/o increasingly worse headache episodes Impression No intra-cranial hemorrhage. No abnormal contrast enhancement in the brain. No significant stenosis, occlusion or aneurysm of the major intracranial arteries. Moderate chronic ischemic white matter changes. #LDCT 01/2025 Lung-RADS Assessment: Category 2, benign appearance or behavior. cancer screening CT in 12 months. Index Nodule: Stable 5.9 mm solid, round, well-circumscribed, juxtapleural left lower lobe pulmonary nodule, 8-242. Other Nodules: None Emphysema: Mild scattered bullous emphysematous changes with associated scattered parenchymal scarring is unchanged. Atherosclerotic changes of the aorta and coronary arteries. Status post cholecystectomy. Mild symmetric gynecomastia changes again seen. ACDF hardware partially visualized. #EKG 04/2024: Sinus rhythm at 81 bpm [...] enlargement; however 3 TID is only 1.15. Summary 1.) Abnormal myocardial perfusion imaging following regadenoson administration. There is evidence of inferior lateral as well as inferior ischemia. 2.) Normal rest and post-stress left ventricular chamber size and systolic function without regional wall motion abnormalities. #12/2024 cardiac cath showed normal left ventricular filling pressure, normal systemic pressures, no significant gradient across aortic valve, normal left ventricular systolic function Coronary angiogram showed right dominant system RCA is large in caliber with mild diffuse disease Left main is medium to large in caliber with mild diffuse disease LAD is large in size with mild diffuse disease Proximal to mid segment CAD 60% heavily calcified diffuse disease There is a medium size ramus branch with severely calcified 70 to 80% stenosis in proximal segment LCx is medium to large in caliber with mild luminal irregularities There was no critical or obstructive CAD to explain abnormal nuclear stress test, nuclear stress test showed RCA territory ischemia Patient asymptomatic no typical symptoms with exertion #07/2024 ROSE greater than 1 bilaterally #2023 Venous Doppler-has reflux in both saphenous veins tough they are not particularly enlarged ASSESSMENT/PLAN: Pt is 75 y/o M with PMH of obesity, HTN, HL, DM2, nonobstructive CAD, MDD, PTSD here today for follow-up #HTN - well controlled -c/w metoprolol 25 mg twice daily #Nonobstructive CAD, cardiac cath 12/2024 -Continue with BB, high intensity statin, aspirin -Follow-up with cardiology 03/22 #HL: well controlled LDL 72,Target LDL-C<70 mg/dl. -c/w atorvastatin 40 mg #Arrhythmia: holter 05/2024 Frequent PVCs 7.9 %,Multiple episodes of Non-sustained VT ECHO 2023 LVEF 50% -patient denies presyncope, syncope, palpitations -f/w cardiology #DM2: uncontrolled A1c 8.7 - managed by non VA PCP and CPP Written instructions provided today -c/w metformin 1000mg BID -c/w glargine 30 units BID -c/w bolus insulin 20 units bid -c/w semaglutide to 0.5 mg weekly, consider increasing to 1 mg and monitor for side effects, patient to address with CPP at next visit (GI symptoms nausea and vomiting while on 2mg) -Consider adding SGLT2i -feet: Extensive onycholysis and keratoderma -> to schedule f/u with podiatry -eye: 01/2025 diabetes without retinopathy or macular edema OU #Active tobacoo user: not ready to quit-declines referral to SCP -Continue with lung cancer screening #PVI - chronic venous stasis skin changes, no edema today No open wounds-discharge from [facility] encouraged compression stocking/leg elevation Discussed regular moisturizer use, wash with Hibiclens -f/w Dr Wynn vascular surgery q6m, plan to obtain carotid US at next visit -s/w Flexitough Plus Advanced Pneumatic Compression System #Unsteady gait, history of falls: Etiology likely multifactorial in the setting peripheral neuropathy, lumbar spine DDD, cervical spondylosis seen by neurology recommended physical therapy but patient declined in the past, Today agreed to trial of physical therapy for gait evaluation, strengthening -Fall precautions reviewed -He ambulates with a walking stick #Low back pain-lumbar DDD -Continue with gabapentin [...] with loperamide 2 mg AC as needed ---> last time used 2 weeks ago #h/o Gastritis, chronic duodenitis: Asymptomatic EGD 08/2022 diffuse erythema and nodular appearing mucosa in the gastric body Few chronic appearing erosions in the prepyloric area as well as patchy erythema in the duodenal bulb with also 10 mm benign-appearing nodule in the apex of the bulb-biopsies benign, negative H. pylori and celiac disease-changes c/w chronic active duodenitis f/w GI [facility]-Dr. Candis Barros #Actinic keratosis scalp -cryotherapy by [place] dermatology #MDD, PTSD: Chronically depressed, denies SI today -f/w MELATONIN MIRTAZAPINE 30MG DULOXETINE 60mg TOPIRAMATE 25MG BID FOR ANXIETY #left hand weakness, numbness mostly first 3 fingers -likely CTS -Referral to Occupational Therapy and will obtain EMG/NCS Healthcare maintenance: --Lipids: LDL 72 (02/2025) --Diabetes: A1c 8.7 (02/2025) --Colon CA (45-75): Overdue since 2021 Personal h/o TA 02/2017 1 TA removed from cecum-> repeat 5 years 08/2022 EGD -gastritis and duodenitis in process of scheduling colonoscopy [facility] --GI (only EGD performed because patient did not complete colon prep) --Lung CA: due 01/2026 --PSA PSA 0.71 (04/2024) --AAA (smoker/65): 2018 no AAA --Influenza (yrly): 2023 --COVID: x3, 2023 --PCV20 2022 --PCV23: 2021 --RZV (>50yrs, x2): --TDAP: --Hep C screen: 2016 negative --HIV screen: --DEXA: --Advanced Directives: Comanagement - prefers to have most aspects of health maintenance, chronic condition(s) and medication management to non-VA PCP. Address at next visit: ?CTS right vs CS radiculopathy Return to clinic to see me in 4 months, sooner PRN. Virtual ( ), F2F ( x ) (x )fasting labs ordered prior to f/u ( )no labs needed ( )request records from outside providers Medication Reconciliation: Outpatient: Has the patient been taking medications as documented in the EMLR? No: Discrepencies were identified. See below. Essential Medication List for Review used to complete this medication reconciliation. INCLUDED IN THIS LIST: Alphabetical list of active outpatient prescriptions dispensed from this VA (local) and dispensed from another [place] or [facility] facility (remote) as well as inpatient orders (local, pending and active), local clinic medications, locally documented non-VA medications, and local prescriptions that have or been discontinued in the past 90 days. - Discrepancies were identified, addressed, and discussed with the patient/caregiver at this encounter. Discrepancies: chart updated - All changes in medications, including all non-VA/Herbal/OTC medications were entered into CPRS. - If there were any medications the patient should no longer take, they were discontinued. - The patient/caregiver was instructed to update this list, discard old lists, and take this list to the next appointment, whether with a VA or non-VA provider. /caio/ CHRISTI ARIAS MD PHYSICIAN Signed: 03/20/2025 14:37 03/26/2025 ADDENDUM STATUS: COMPLETED Please place new order for colonoscopy at [facility] if patient is in agreement thank you /caio/ CHRISTI ARIAS MD PHYSICIAN Signed: 03/26/2025 19:22 Receipt Acknowledged By: 04/01/2025 09:06 /caio/ SONYA RILEY RN REGISTERED NURSE 04/01/2025 ADDENDUM STATUS: COMPLETED Called without success. Left generic/ HIPAA-compliant message on voicemail not identified in outgoing message requesting call back to PACT. Return call number was provided. Colonoscopy consult placed and held for PCP signature. /caio/ SONYA RILEY RN REGISTERED NURSE Signed: 04/01/2025 09:06 04/08/2025 ADDENDUM STATUS: COMPLETED [facility] - cardiology note dated received, sent to [facility]. No practice name or date of service on note. Plan: constinue current regimen RTC 6 months /caio/ Ayaka Mari RN Registered Nurse Signed: 04/08/2025 11:27 CATIA ARIAS MONTVERDE
--- OUTSIDE RECORDS SUMMARY | 2025-04-01 14:24 | XMS_ITS ---
Author Name [facility] [facility] [place] Address [address] [place] [id number] Care Team Providers Care Heel Reducer Name Role Phone CHRISTI ARIAS Primary Care [...] Name Patient's Relationship to Policy [facility] (WNR) MEDICARE ADVANTAGE [facility] ([facility]) Nov 17, 2017 NONE [id number] DARRELL HUTCHINS PATIENT [facility]ALTH [facility] (WNR) MEDICARE ADVANTAGE [facility] (WNR) Nov 17, 2017 [id number] DARRELL HUTCHINS PATIENT MEDICAID MEDICAID [facility] Jan 15, 2017 MEDICAI D [id number] DARRELL HUTCHINS PATIENT Selected Encounter This section includes the information on record at NH for the Encounter. Date/Time Encounter Type Encounter Description Reason Pro vider Source April 01, 2025 06:24 PM Outpatient Encounter ADMIN PAT ACTIVTIES ([facility]) IHE Encounter Template Text not used by [place] Plan of Treatment: Future Appointments (+ 6 months) and Future Tests (+/- 45 days) The Plan of Treatment section includes future care activities for the patient [facility] This section includes future appointments and future orders which are active, pending or scheduled. Future Appointments This section includes appointments that were scheduled to occur 6 months from the date of the Encounter, up to a maximum of 20 appointments. The data comes from all [facility] facilities. Appointment Date/Time Appointment Type Appointme nt Facility Name April 04, 2025 12:30 PM AMBULATORY - MEDICINE [facility] [place] [facility] April 12, 2025 02:00 PM AMBULATORY - REHAB MEDICIN [facility] [place] [facility] April 12, 2025 02:15 PM AMBULATORY - MEDICINE [facility] April 15, 2025 01:30 PM AMBULATORY - MEDICINE [facility] Apr 20, 2025 02:30 PM AMBULATORY - PSYCHIATRY [facility] May 02, 2025 01:00 PM AMBULATORY - MEDICINE [place] [facility] [place] [facility] Jun 06, 2025 02:00 PM AMBULATORY - MEDICINE [facility] Jun 13, 2025 01:00 PM AMBULATORY - MEDICINE [facility] [place] [facility] Jun 14, 2025 01:00 PM AMBULATORY - PSYCHIATRY [facility] Jun 14, 2025 02:00 PM AMBULATORY - PSYCHIATRY [facility] Jul 12, 2025 01:00 PM AMBULATORY - PSYCHIATRY [facility] Jul 22, 2025 01:00 PM AMBULATORY - MEDICINE [facility] Jul 29, 2025 01:30 PM AMBULATORY - PSYCHIATRY [facility] Aug 23, 2025 02:00 PM AMBULATORY - PSYCHIATRY [facility] Sep 26, 2025 01:00 PM AMBULATORY - MEDICINE [place] [facility] [place] [facility] Social History: Smoking Status (Most current) and [...] Date/Time Current Smoking Status Comment Kiki edmonds May 06, 2024 10:30 AM VA-TOBACCO DOESNT USE WI 30 MIN WAKEUP [facility] [place] [facility] Tobacco Use History This section includes a history of the smoking, or tobacco-related health factors, that were collected on or before the date of the Encounter. The data comes from the [place] facility where the Encounter took place. 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 CARE MANAGER NO [facility] [place] [facility] May 06, 2024 10:30 AM VA-TOBACCO USE MED NO [facility] [place] [facility] May 06, 2024 10:30 AM VA-TOBACCO USER EVERY DAY [facility] [place] [facility] Dec 20, 2022 02:06 PM VA-TOBACCO USE 5 TO 15 YEARS [facility] [place] [facility] Dec 20, 2022 02:06 PM VA-TOBACCO USE ADVICE [facility] [place] [facility] Dec 20, 2022 02:06 PM VA-TOBACCO USE HEALTH CARE MANAGER NO [facility] [place] [facility] Dec 20, 2022 02:06 PM VA-TOBACCO USE MED NO [facility] [place] [facility] Dec 20, 2022 02:06 PM VA-TOBACCO USE WI 30 MIN OF WAKEUP [facility] [place] [facility] Dec 20, 2022 02:06 PM VA-TOBACCO USER EVERY DAY [facility] [place] [facility] Encounter Notes: All associated encounter notes This section contains the clinical notes associated to the Encounter. Date/Time Encounter Note(s) Provider Source April 01, 2025 06:24 PM LETTERS: LOCAL TITLE: PATIENT LETTER (T) STANDARD TITLE: LETTERS DATE OF NOTE: APRIL 01, 2025@18:24 ENTRY DATE: APRIL 01, 2025@18:24:33 AUTHOR: CHET ZHENG COSIGNER: URGENCY: STATUS: COMPLETED [employer] [facility] Toll Free Number Primary Care Telephone Assistance can be reached at extension [phone] [facility] scheduling can be reached at extension [phone] [facility] scheduling can be reached at ext [phone] LISSETTE HUTCHINS [address] [place], [place], [address] Dear Parsons, The Referral Coordination Team at [facility] has attempted to contact you March to discuss a Gastroenterology referral that was requested by your healthcare provider. We would appreciate hearing from you so that we can assist in coordinating this care. Please call Chet Zheng MSN RN at [phone] at your earliest convenience. It's important that we process this request as soon as possible to make sure you receive the care your provider requested. Unfortunately if you do not hear from you within 14 days of the date on this letter your healthcare provider will be informed and the request may be discontinued. We look forward to your call and thank you for the opportunity to serve you. Sincerely, Your Primary Care Team [facility] [address] [facility] [address] [place] [address] [place] [address] [phone] [facility] [address] [place] [address] [place] [address] [facility] [address] [facility] [place] [id number] [place] [address] CHET ZHENG [place] [facility] HERNANDEZ [facility]
--- OUTSIDE RECORDS SUMMARY | 2025-04-04 08:30 | XMS_ITS | Encounter Summary ---
Author Name [facility] Organization [facility] [place] Address [address] [place] [id number] Care Team Providers Care Clinical Exercise Specialist Name Role Phone CHRISTI ARIAS Primary [...] Name Patient's Relationship to Policy [facility] MEDICARE ADVANTAGE [facility] Nov 17, 2017 NONE [id number] DARRELL HUTCHINS PATIENT [facility] ([facility]) MEDICARE ADVANTAGE [facility] Nov 17, 2017 [id number] DARRELL HUTCHINS PATIENT MEDICAID MEDICAID [facility] Jan 15, 2017 MEDICAI D [id number] DARRELL HUTCHINS PATIENT Selected Encounter This section includes the information on record at [place] for the Encounter. Date/Time Encounter Type Encounter Description Reason Provider Source April 04, 2025 12:30 PM MTMS BY PHARM ADDL 15 MIN CLINICAL PHARMACY ICD-10-CM E11.65 Type 2 diabetes mellitus with hyperglycemia DARIO [facility] Encounter Template Text not used by [place] Assessments - Encounter Diagnoses This section includes the primary and secondary diagnoses documented for the Encounter. Date/Time Primary/Secondary Diagnosis Diagnosis Name Provider Source April 04, 2025 02:58 PM PRIMARY Type 2 diabetes mellitus with hyperglycemia JACQUELINE MIKE [place] Plan of Treatment: Future Appointments (+ 6 months) and Future Tests (+/- 45 days) The Plan of Treatment section includes future care activities for the patient from all [place] [facility] This section includes future appointments and future orders which are active, pending or scheduled. Future Appointments This section includes appointments that were scheduled to occur 6 months from the date of the Encounter, up to a maximum of 20 appointments. The data comes from all [place] treatment facilities. Appointment Date/Time Appointment Type Appointme nt Facility Name April 12, 2025 02:00 PM AMBULATORY - [facility]ICIN [facility] [place] [facility] April 12, 2025 02:15 PM [facility] April 15, 2025 01:30 PM AMBULATORY - MEDICINE [facility] Apr 20, 2025 02:30 PM AMBULATORY - PSYCHIATRY [facility] May 02, 2025 01:00 PM AMBULATORY - MEDICINE [place] [facility] [place] [facility] Jun 06, 2025 02:00 PM [facility] Jun 13, 2025 01:00 PM AMBULATORY - MEDICINE [place] [facility] [place] [facility] Jun 14, 2025 01:00 PM AMBULATORY - PSYCHIATRY [facility] Jun 14, 2025 02:00 PM AMBULATORY - PSYCHIATRY [facility] Jul 12, 2025 01:00 PM AMBULATORY - PSYCHIATRY [facility] Jul 22, 2025 01:00 PM [facility]AT[facility] MEDICINE [facility] Jul 29, 2025 01:30 PM AMBULATORY - PSYCHIATRY [facility] Aug 23, 2025 02:00 PM AMBULATORY - PSYCHIATRY [facility] Sep 26, 2025 01:00 PM AMBULATORY - MEDICINE [place] [facility] [place] [facility] Social History: Smoking Status (Most current) and Tobacco Use (All prior to encounter date) This section includes the most current, and the historical, smoking and tobacco- related health factors from the [place] facility where the Encounter took place. Current Smoking Status This section includes the most current smoking, or tobacco-related health factor, from the [place] facility where the Encounter took place. Date/Time Current Smoking Status Comment Facil ity Aug 24, 2021 11:30 AM VA-TOBACCO USER EVERY DAY [place] Tobacco Use History This section includes a history of the smoking, or tobacco-related health factors, that were collected on or before the date of the Encounter. The data comes from the [place] facility where the Encounter took place. Date/Time Smoking Status/Tobacco Use Comment F acility Aug 24, 2021 11:30 AM VA-TOBACCO USE ADVICE [place] Aug 24, 2021 11:30 AM VA-TOBACCO USE MILK OF LIME SLAKER NO [place] Aug 24, 2021 11:30 AM VA-TOBACCO USE MED NO [place] Aug 24, 2021 11:30 AM VA-TOBACCO USE WI 30 MIN OF WAKEUP [place] Aug 24, 2021 11:30 AM VA-TOBACCO USER EVERY DAY [place] May 11, 2020 09:35 AM VA-TOBACCO DOESNT USE WI 30 MIN [facility] May 11, 2020 09:35 AM VA-TOBACCO USE 30 YEARS OR MORE [place] May 11, 2020 09:35 AM VA-TOBACCO USE ADVICE [place] May 11, 2020 09:35 AM VA-TOBACCO USE MILK OF LIME SLAKER NO [place] May 11, 2020 09:35 AM VA-TOBACCO USE MED NO [place] May 11, 2020 09:35 AM VA-TOBACCO USER EVERY DAY [place] Jan 28, 2019 10:44 AM VA-TOBACCO DOESNT USE WI 30 MIN [facility] Jan 28, 2019 10:44 AM VA-TOBACCO USE 5 TO 15 YEARS [place] Jan 28, 2019 10:44 AM VA-TOBACCO USE ADVICE [place] Jan 28, 2019 10:44 AM VA-TOBACCO USE MILK OF LIME SLAKER NO [place] Jan 28, 2019 10:44 AM VA-TOBACCO USE MED NO [place] Jan 28, 2019 10:44 AM VA-TOBACCO USER EVERY DAY [place] Nov 06, 2017 09:56 AM CURRENT SMOKER [facility] Nov 06, 2017 09:56 AM V1-PT NOT INTEREST ED IN QUIT TOBACCO USE [place] Sep 15, 2017 02:08 PM CURRENT SMOKER reports smoking about 1/2 pack small cigars/day [place] Encounter Notes: All associated encounter notes This section contains the clinical notes associated to the Encounter. Date/Time Encounter Note(s) Provider Source April 04, 2025 01:21 PM PHARMACY OUTPATIEN T NOTE: LOCAL TITLE: PHARMACY CLINIC NOTE STANDARD TITLE: PHARMACY OUTPATIENT NOTE DATE OF NOTE: APRIL 04, 2025@13:21 ENTRY DATE: APRIL 04, 2025@13:22:06 AUTHOR: LAMBERTO MIKE COSIGNER: URGENCY: STATUS: COMPLETED Patient Name: LISSETTE HUTCHINS was seen via F for follow-up for diabetes management treatment. : Dec Age: 75 Sex: MALE Race: WHITE Subjective: Pt has difficulty walking. He is very upset w/ current government and is concerned that he may loose eligibility and he is already struggling financially. Pt continues to struggle from depression. He states this all does not help w/ his dm mangement. Pt was recently seen by PCP who also noted very dangerous BG level of 47 mg/dl hence she adjusted insulin novolog. Per prev: Pt had a cardiac procedure scheduled but no cardiac stent was placed on 01/13/25. Next appt w/ cardiology is Mar, 2025. Pt states he is doing well on current dose of ozempic no diarrhea reported. He is here for follow up on his BG levels. Per prev: Pt is contacted by cpp for f/up on DM management. Pt is awaiting confirmation for cardiac procedure. Pt is doing well otherwise. Pt forgot exactly the insulin instructions from last visit. Per prev: PT saw [facility] in October. He continues on low dose of ozempic with no problems. #obesity BMI 32.4 #DM2 - managed by non [facility] PCP /CPP Currently taking: Non-VA METFORMIN 1000MG BID SEMAGLUTIDE 0.5mg ASPART 12 units BID GLARGINE 26 units BID Avoiding sugar containg drinks He admits dietary indiscretions, likes candies denies p/p/p Per prev: : Pt came to the visit stating he [...] is not happy w/ his job at [employer]. Pt expresses desire to leave [place] he does not like living here anymore. Pt also adds BG have been very high it's very frustrating to him. He continues to use dexcom sensor. Pt has busy month upcoming in April with doctors appt - GI ; heart , etc. 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 He has severe Crohn's disease. [...] he was seeing wound care weekly at [facility] and was dicharged spring 2022- per pt he was told they can not help him anymore. per pt he was supposed to see vascualar surgery at [facility] for evaluation of LE edema, but he he was never scheduled. not wearing compression stockings regularly Plan to readdress PVI with non-VA PCP visit this month Target Goals: A1C: 7%; FB-130 mg/dL; 2HRS PP <180mg/dL. Allergies: Patient has answered NKA PERTINENT INFORMATION: Active problems - Computerized Problem List is the source for the followin. CAD - Coronary Artery Disease ([facility] [id number]) 2. Paresthesia of hand 3. Pulmonary emphysema 4. Cellulitis and abscess of lower leg 5. Heart murmur 6. Cardiac arrhythmia 7. Actinic keratosis 8. Headache 9. Insomnia 10. Unsteady gait 11. Vitamin D Deficiency ([facility] [id number]) 12. Vitamin B12 Deficiency ([facility] [id number]) 13. Diarrhea 14. CAD - Coronary Artery Disease ([facility] [id number]) 15. Pain of left knee joint 16. Tobacco user 17. Peripheral venous insufficiency 18. Onychomycosis 19. History of cholecystectomy 20. Chronic back pain 21. Neck pain 22. Co-Management 23. Depression ([facility] [id number]) 24. Hyperglycemia due to type 2 diabetes mellitus 25. Hyperlipidemia 26. Essential hypertension 27. Neuropathy due to type 2 diabetes mellitus 28. Posttraumatic stress disorder Diabetes Medication Regimen: - Insulin glargine (Semglee) 30 units twice daily - typically 12 noon and 12 midnight - Insulin aspart( Novolog) BID 20 units BID - with or without meals? - semaglutide 0.5 mg weekly (Sundays) - unable to tolerate higher doses - metformin 1000 mg bid - eGFR >90ml/min on 10/2024 Hyperlipidemia - Atorvastatin 20 mg daily Hypertension: - Metoprolol SA 25 mg daily Previous DM Medications: -- glimepiride -- Novolog 70/30 Adherence: Oral meds: denies missed doses Insulin: misses novolog or takes it after meals when BG high Labs: HEMOGLOBIN A1C TREND Collection DT Spec HGBA1c 02/17/2025 13:36 BLOOD 8.7 H 10/25/2024 13:16 BLOOD 9.4 H 08/20/2024 13:47 BLOOD 7.4 H 05/04/2024 14:38 BLOOD 8.7 H 08/06/2023 14:47 BLOOD 6.4 H CBC TREND Collection DT Spec WBC RBC HGB HCT MCV MCH PLT 02/17/2025 13:36 BLOOD 10.02 4.82 14.7 43.0 89.2 30.5 207 10/25/2024 13:16 BLOOD 8.22 4.68 14.5 41.4 88.5 31.0 229 05/04/2024 14:38 BLOOD 10.19 4.49 14.2 41.7 92.9 31.6 181 08/06/2023 14:47 BLOOD 6.63 4.63 14.2 41.4 89.4 30.7 161 07/08/2023 09:40 BLOOD 7.61 4.59 14.1 41.2 89.8 30.7 179 CHEM 7 TREND LAB CUMULATIVE SELECTED Collection [...] 11 0.75 133 L 4.2 101 23 LAB CUMULATIVE SELECTED 2 No selection items chosen for this component. CHEM 7 Results Collection DT Spec Sodium K+/Pot CL CO2 GLUCOSE BUN 02/17/2025 13:36 SERUM 134 L 3.9 105 22 75 15 10/25/2024 13:16 SERUM 137 3.4 L 105 24 197 H 18 05/04/2024 14:38 SERUM 138 4.0 108 21 [...] 13:45 SERUM 167 48 3.5 100 97 THYROID PANEL Collection DT Specimen Test Name Result Units Ref Range 10/25/2024 13:16 SERUM TSH 1.28 uIU/mL 0.35 - 5.00 VITAMIN D 25-OH Collection DT Specimen Test Name Result Units Ref Range 05/04/2024 14:38 SERUM VITAMIN D (25-OH) 27 ng/mL 20 - 50 SrCr (last 6 weeks): CREATININE-EGFR - NONE FOUND CRCL IBW: CrCl(est): 97.9 mL/min (Creat:0.87 02/17/25) CRCL ACT: 100 mL/min CRCL ADJ: 97.9 mL/min (02/17/25) lft's: wnl on 10/2024 Vitals: Weight (BMI): 250 lb [113.40 kg] (03/18/2025 11:41) Height: 74 in [188.0 cm] (03/18/2025 11:41) BMI: 32.2 Active and Recently Outpatient Medications (including Supplies): Active Outpatient Medications Status Active Outpatient Medications (including Supplies): AMMONIUM LACTATE 12% LOTION APPLY SMALL AMOUNT TOPICALLY ACTIVE ONCE DAILY FOR DRY IRRITATED SKIN Indication: FOR DRY SKIN ATORVASTATIN CALCIUM 80MG TAB TAKE ONE-HALF TABLET BY ACTIVE MOUTH ONCE DAILY Indication: FOR HIGH CHOLESTEROL DULOXETINE HCL 60MG EC CAP TAKE ONE CAPSULE BY MOUTH ONCE ACTIVE DAILY Indication: DEPRESSION GLUCAGON 3MG NASAL INHL,1 PK SPRAY 1 INHALATION ONE ACTIVE NOSTRIL ONE TIME NEEDED Indication: FOR LOW BLOOD SUGAR GLUCOSE 4GM CHEW TAB CHEW THREE TO FOUR TABLETS BY MOUTH ACTIVE NEEDED TO TREAT LOW BLOOD SUGAR BELOW 70 Indication: FOR LOW BLOOD SUGAR GLUCOSE SENSOR DEXCOM G7 USE 1 SENSOR DIRECTED EVERY 10 ACTIVE DAYS INSULIN,ASPART(EQV-NOVLG)100UN/ML FLXPEN INJECT 20 UNITS ACTIVE SUBCUTANEOUSLY TWICE DAILY INJECT 15 MINUTES BEFORE MEALS Indication: FOR DIABETES INSULIN,GLARGINE 100 UNT/ML 3ML SOLOSTAR INJECT 30 UNITS ACTIVE SUBCUTANEOUSLY TWICE DAILY Indication: FOR DIABETES LOPERAMIDE HCL 2MG CAP TAKE ONE CAPSULE BY MOUTH THREE ACTIVE TIMES DAILY WITH MEALS Indication: FOR DIARRHEA MAGNESIUM OXIDE 420MG TAB TAKE ONE TABLET BY MOUTH ONCE ACTIVE DAILY Indication: FOR MAGNESIUM SUPPLEMENTATION MELATONIN 3MG CAP/TAB TAKE THREE CAPSULE/TABLET BY MOUTH HOLD AT BEDTIME NEEDED INSOMNIA Indication: FOR INSOMNIA MIRTAZAPINE 30MG TAB TAKE ONE TABLET BY MOUTH AT BEDTIME ACTIVE FOR DEPRESSION/MOOD MUPIROCIN 2% OINT APPLY THIN LAYER TOPICALLY EVERY OTHER ACTIVE DAYS Indication: FOR SKIN INFECTION NEEDLE,PEN 31G,5MM USE 1 NEEDLE SUBCUTANEOUSLY FOUR TIMES ACTIVE A DAY FOR USE WITH PEN DEVICE SEMAGLUTIDE 0.25MG/0.375ML INJ PEN 3ML INJECT 0.5MG ACTIVE SUBCUTANEOUSLY ONCE A WEEK Indication: FOR TYPE 2 DIABETES MELLITUS TOPIRAMATE 25MG TAB TAKE ONE TABLET BY MOUTH TWICE DAILY ACTIVE NEEDED FOR ANXIETY/HEADACHE (OFF LABEL FOR ANXIETY) UREA 10% LOTION APPLY MODERATE AMOUNT TOPICALLY TWICE ACTIVE DAILY *FOR EXTERNAL USE ONLY* Indication: FOR DRY SKIN Non-VA ASPIRIN 81MG EC TAB 81MG BY MOUTH EVERY DAY ACTIVE Non-VA CYANOCOBALAMIN TAB BY MOUTH ACTIVE Non-VA GABAPENTIN 300MG CAP 300MG BY MOUTH THREE TIMES A ACTIVE DAY Non-VA METFORMIN HCL 1000MG TAB 1000MG BY MOUTH TWICE ACTIVE DAILY Non-VA METOPROLOL TARTRATE 25MG TAB 25MG BY MOUTH EVERY ACTIVE DAY Non-VA VITAMIN B COMPLEX CAP,ORAL BY MOUTH ACTIVE Non-VA VITAMIN D3 (CHOLECALCIFEROL) TAB BY MOUTH ACTIVE 24 Total Medications MEDICATION RECONCILIATION: done BLOOD GLUCOSE MONITORING 08/06/23 DEXCOM G7 14 DAY AVERAGE = [...] - fasting BG checked at the visit Date 11/08/24 Pt did not have the sensor on - needs to place a new on on today- he will call the aligner typewriter back day avg when he places new sensor on and when it warms up. Date: 12/09/24 Dexcom G7 14 day av mg/dl 20% VERY HIGH 24% HIGH 56% IN RANGE 0% LOW 0% VERY LOW Sensor usage: 100% 12/17/24: Date: 12/09/24 Dexcom G7 7 day av mg/dl 11% VERY HIGH 30% HIGH 58% IN RANGE 1% LOW 0% VERY LOW Sensor usage: 100% Date: 02/17/25 Dexcom G7 7 day av mg/dl 13% VERY HIGH 43% HIGH 43% IN RANGE 1% LOW 0% VERY LOW Sensor usage: 100% Date: 04/04/25 Dexcom G7 7 day av mg/dl 26% VERY HIGH 45% HIGH 29% IN RANGE 0% LOW 0% VERY LOW Sensor usage: 94% GMI: 8.5 NUTRITION Diet Patterns: patient eats on avg. [...] reviewed: Yes EtOH/Illicit drugs: Alcohol: denies Tobacco: 1/2 ppd Other: - Denies personal or fhx thyroid [...] 09/08/24 pt has a lot of complaints; DOUBLE CUTTER checked his BG at the visit which [...] be f/up over telephone in 2-3 weeks. DAte: 11/08/24 REviewed pt's response to lower dose of ozempic, Reviewed the labs - a1c much higher which is to be expected. Pt to call the aligner typewriter back w/ 7 day avg from sensor for further insulin adjusmtent. REviewed the nutrition w/ . Pt continues to struggle both w/ nutrition and home situation - w/ his son who lives w/ him. f/up in November Date: 12/09/24 Reviewed the BG reported by the from the sensor. Time in range is up from prior. Recommend to c/t on same lower dose of semaglutide which pt can tolerate. Discussed nutrition. F/up in February. Date: 12/17/24 Reviewed the BG data from the last 7 days. Pt's time in target went up to 58% and very high % went down. Recommend to c/t w/previous recommendation to increase insulin glargine. Reviewed nutrition - pt has done much better this past week. Pt continues to be nervous about the procedure. f/up in February. Date: 02/17/25 Time in target only at 43%. Pt is misusing novolog and injects it very erratically. Sometimes he skips b/c BG before meals is 130 mg/dl ; other times he injectes hours after the meal. Pt has been counceled on this prior - re- educated pt today. Unable to further increase ozempic d/t previous hx of severe diarrhea. Recommend to incresae dose of insulin glargine. Counseled on nturition . f/up in March pt to repeat blood work today. Date: 04/04/25 Reviewed w/ pt the timing of administration of both basal and bolus insulin. Pt is administering novolog many times without meals when he sees the BG rising. It is likely that his BG of 48 mg/dl occured that way as well. Pt does admit to eating very starchy meal very late at night time i.e. 12 midnight. It is very difficult for him to change the eating pattern. Reviewed how to use nasal glucagon. f/up in May DIABETES A1c is above goal of <7% - Medication management Diabetes - CONTINUE Insulin glargine (Semglee) 30 units twice daily - typically 12 noon and 12 midnight -COTNINUE Insulin aspart( Novolog) BID 20 units; take 15 minutes prior to meals -CONTINUE semaglutide 0.5 mg weekly (Sundays) -CONTINUE metformin 1000 mg bid - eGFR >90ml/min on 02/2025 - Reviewed [facility] lab results - Monitor for s/six hypoglycemia and contact clinic if BG consistently <70mg/dL - Healthy dietary and lifestyle modifications encouraged - increase water intake to 40 oz/day - Repeat A1c:today HTN: recent BP wnl 10/2024 ; metoprolol; BRENNAN-I/ARB - defer to PCP ASCVD: fish oil; ASA 81 mg , lovastatin Microalb: mALB/Cr: 60.1 H mg/G (05/2021) mALB/Cr: 17.5 mg/G (05/2024) mALB/Cr: 17.0 mg/G (02/2025) History of Preventive Care: Most recent visit to supervisor bottle machines: non [facility] ; last visit at wound [...] NOV 2021 8.0% Clinic's Next Scheduled Follow-up: May, No barriers; Patient understands and agrees to current treatment plan. If he has any questions, concerns, or changes in current health status he will call or come in to the [facility]. FUTURE APPOINTMENTS: 11/25/2024 09:00 [facility] CARE-COLONOSCOPY DIAG 11/30/2024 14:00 CWM/SO/MHC/OFRAT 11/30/2024 15:00 CWM/SO/MHC/WORKMAN 12/14/2024 11:25 [facility] CARE-CARDIOLOGY 12/14/2024 13:00 CWM/SO/MHC/ROSIO 12/21/2024 11:00 CWM/NO/DERMATOLOGY HEAD OF DIGITAL AM 02/08/2025 11:15 CWM/NO/CAT SCAN 02/08/2025 11:30 NHM/OPTOMETRY/BORASKI 02/17/2025 13:00 CWM/SO/PACT 5 DM type is : T2D Length of Visit: 30 minutes PBM PharmD Pharmacotherapy Rem V12: PHARMACIST INTERVENTIONS: TYPE 2 DIABETES MELLITUS Medication monitoring, no dosage change required, continue to monitor and assess /caio/ LAMBERTO MIKE CLINICAL MISSILE INSPECTOR PREFLIGHT Signed: 04/05/2025 09:19 Receipt Acknowledged By: 04/05/2025 11:34 /es/ CHRISTI ARIAS MD PHYSICIAN LAMBERTO MIKEFIELD
--- OUTSIDE RECORDS SUMMARY | 2025-04-05 07:28 | XMS_ITS ---
Author Name [facility] [place] Address [address] [place] [id number] Care Team Providers Care General Road Foreman Name Role Phone CHRISTI ARIAS Primary Care [...] Name Patient's Relationship to Policy [facility] (WNR) MEDICARE ADVANTAGE [facility] Nov 17, 2017 NONE [id number] DARRELL HUTCHINS PATIENT [facility] (WNR) MEDICARE ADVANTAGE [facility] (WNR) Nov 17, 2017 [id number] DARRELL HUTCHINS PATIENT MEDICAID MEDICAID [facility] Jan 15, 2017 MEDICAI D [id number] DARRELL HUTCHINS PATIENT Selected Encounter This section includes the information on record at [place] for the Encounter. Date/Time Encounter Type Encounter Description Reason Pro vider Source April 05, 2025 11:28 AM Outpatient Encounter ADMIN PAT ACTIVTIES (MASNONCT) IHE Encounter Template Text not used by [place] Plan of Treatment: Future Appointments (+ 6 months) and Future Tests (+/- 45 days) The Plan of Treatment section includes future care activities for the patient from all [place] [facility]. This section includes future appointments and future orders which are active, pending or scheduled. Future Appointments This section includes appointments that were scheduled to occur 6 months from the date of the Encounter, up to a maximum of 20 appointments. The data comes from all [facility] facilities. Appointment Date/Time Appointment Type Appointme nt Facility Name April 12, 2025 02:00 PM AMBULATORY - REHAB MEDICIN [place] [facility] [place] [facility] April 12, 2025 02:15 PM AMBULATORY - MEDICINE [facility] April 15, 2025 01:30 PM AMBULATORY - MEDICINE [facility] Apr 20, 2025 02:30 PM AMBULATORY - PSYCHIATRY [facility] May 02, 2025 01:00 PM AMBULATORY - MEDICINE [facility] [place] [facility] Jun 06, 2025 02:00 PM AMBULATORY - MEDICINE [facility] Jun 13, 2025 01:00 PM AMBULATORY - MEDICINE [facility] [place] [facility] Jun 14, 2025 01:00 PM AMBULATORY - PSYCHIATRY [facility] Jun 14, 2025 02:00 PM AMBULATORY - PSYCHIATRY [facility] Jul 12, 2025 01:00 PM AMBULATORY - PSYCHIATRY [facility] Jul 22, 2025 01:00 PM AMBULATORY - MEDICINE [facility] Jul 29, 2025 01:30 PM AMBULATORY - PSYCHIATRY [facility] Aug 23, 2025 02:00 PM AMBULATORY - PSYCHIATRY [facility] Sep 26, 2025 01:00 PM AMBULATORY - MEDICINE [facility] Social History: Smoking Status (Most current) and Tobacco Use (All prior to encounter date) This section includes the most current, and the historical, smoking and tobacco- related health factors from the [place] facility where the Encounter took place. Current Smoking Status This section includes the most current smoking, or tobacco-related health factor, from the [place] facility where the Encounter took place. Date/Time Current Smoking Status Comment Kiki edmonds May 06, 2024 10:30 AM VA-TOBACCO USER EVERY DAY [facility] Tobacco Use History This section includes a history of the smoking, or tobacco-related health factors, that were collected on or before the date of the Encounter. The data comes from the [place] facility where the Encounter took place. Date/Time Smoking Status/Tobacco Use Comment F acility May 06, 2024 10:30 AM VA-TOBACCO USE 30 YEARS OR MORE [facility] [place] [facility] May 06, 2024 10:30 AM VA-TOBACCO USE ADVICE [facility] [place] [facility] May 06, 2024 10:30 AM VA-TOBACCO USE HYDRO GENERATION SUPERVISOR NO [facility] [place] [facility] May 06, 2024 10:30 AM VA-TOBACCO USE MED NO [facility] [place] [facility] May 06, 2024 10:30 AM VA-TOBACCO USER EVERY DAY [facility] [place] [facility] Dec 20, 2022 02:06 PM VA-TOBACCO USE 5 TO 15 YEARS [facility] [place] [facility] Dec 20, 2022 02:06 PM VA-TOBACCO USE ADVICE [facility] [place] [facility] Dec 20, 2022 02:06 PM VA-TOBACCO USE HYDRO GENERATION SUPERVISOR NO [facility] [place] [facility] Dec 20, 2022 02:06 PM VA-TOBACCO USE MED NO [facility] [place] [facility] Dec 20, 2022 02:06 PM VA-TOBACCO USE WI 30 MIN OF WAKEUP [facility] [place] [facility] Dec 20, 2022 02:06 PM VA-TOBACCO USER EVERY DAY [facility] [place] [place] [facility] Encounter Notes: All associated encounter notes This section contains the clinical notes associated to the Encounter. Date/Time Encounter Note(s) Provider Source April 05, 2025 11:28 AM MEDICATION MGT NOT E: LOCAL TITLE: MEDICATION RENEWAL STANDARD TITLE: MEDICATION MGT NOTE DATE OF NOTE: APRIL 05, 2025@11:28 ENTRY DATE: APRIL 05, 2025@11:29:13 AUTHOR: ISABEL NARVAEZ COSIGNER: URGENCY: STATUS: COMPLETED Hello, is requesting refill on the following prescription(s) due to a recall on it. Please renew if appropriate. Thank you for your time. CARBOXYMETHYLCELLULOSE NA 0.5% [facility] SOLN NDC: [id number] Verb: INSTILL *Dosage: 1 DROP *Route: EACH EYE *Schedule: TID PRN Patient Instructions: Indications: FOR DRY EYE SIG: INSTILL 1 DROP INTO EACH EYE THREE TIMES DAILY NEEDED FOR DRY EYE /caio/ ISABEL NARVAEZ Signed: 04/05/2025 11:31 Receipt Acknowledged By: 04/05/2025 11:35 /es/ CHRISTI ARIAS MD PHYSICIAN 04/07/2025 14:02 /es/ SONYA RILEY RN REGISTERED NURSE [facility]
--- OUTSIDE RECORDS SUMMARY | 2025-04-20 10:30 | XMS_ITS | Encounter Summary ---
Author Name [facility] [place] Organization [place] Address [address] [place] [id number] Care Team Providers Care N[employer] Weaver Name Role Phone CHRISTI ARIAS Primary Care [...] to Policy [facility] MEDICARE ADVANTAGE [facility] ([facility]) Nov 17, 2017 NONE [id number] [facility]) MEDICARE ADVANTAGE [facility] ([facility]) Nov 17, 2017 [id number] DARRELL HUTCHINS PATIENT MEDICAID MEDICAID [facility] Jan 15, 2017 MEDICAI D [id number] DARRELL HUTCHINS PATIENT Selected Encounter This section includes the information on record at [place] for the Encounter. Date/Time Encounter Type Encounter Description Reason Provider Source Apr 20, 2025 02:30 PM OFFICE O/P EST MOD 30 MIN [facility] - IND ICD-10-CM F32.9 Major depressive disorder, single episode, unspecified EUGENE WORKMAN Johanna Encounter Template Text not used by [place] Assessments - Encounter Diagnoses This section includes the primary and secondary diagnoses documented for the Encounter. Date/Time Primary/Secondary Diagnosis Diagnosis Name Provider Source Apr 20, 2025 06:28 PM PRIMARY Major depressive disorder, single episode, unspecified DENISSE WORKMAN [facility] Apr 20, 2025 06:28 PM SECONDARY Post-traumatic stress disorder, unspecified JIDENISSE G SHAW Plan of Treatment: Future Appointments (+ 6 months) and Future Tests (+/- 45 days) The Plan of Treatment section includes future care activities for the patient from all [place] [facility]. This section includes future appointments and future orders which are active, pending or scheduled. Future Appointments This section includes appointments that were scheduled to occur 6 months from the date of the Encounter, up to a maximum of 20 appointments. The data comes from all [facility] facilities. Appointment Date/Time Appointment Type Appointme nt Facility Name May 02, 2025 01:00 PM AMBULATORY - MEDICINE [facility] [place] [facility] Jun 06, 2025 02:00 PM AMBULATORY - MEDICINE [facility] Jun 13, 2025 01:00 PM AMBULATORY - MEDICINE [facility] Jun 14, 2025 01:00 PM AMBULATORY - PSYCHIATRY [facility] Jun 14, 2025 02:00 PM AMBULATORY - PSYCHIATRY [facility] Jul 12, 2025 01:00 PM AMBULATORY - PSYCHIATRY [facility] Jul 22, 2025 01:00 PM AMBULATORY - MEDICINE [facility] Jul 29, 2025 01:30 PM AMBULATORY - PSYCHIATRY [facility] Aug 23, 2025 02:00 PM AMBULATORY - PSYCHIATRY [facility] Sep 26, 2025 01:00 PM AMBULATORY - MEDICINE [facility] [place] [facility] Oct 10, 2025 01:30 PM AMBULATORY - MEDICINE [facility] Social History: Smoking Status (Most current) and Tobacco Use (All prior to encounter date) This section includes the most current, and the historical, smoking and tobacco- related health factors from the [place] facility where the Encounter took place. Current Smoking Status This section includes the most current smoking, or tobacco-related health factor, from the [place] facility where the Encounter took place. Date/Time Current Smoking Status Comment Kiki edmonds Aug 24, 2021 11:30 AM VA-TOBACCO USE [place] 30 MIN OF WAKE UP [facility] Tobacco Use History This section includes a history of the smoking, or tobacco-related health factors, that were collected on or before the date of the Encounter. The data comes from the [place] facility where the Encounter took place. Date/Time Smoking Status/Tobacco Use Comment F acility Aug 24, 2021 11:30 AM VA-TOBACCO USE ADVICE [facility] Aug 24, 2021 11:30 AM VA-TOBACCO USE TECHNICAL ACCOUNT REPRESENTATIVE NO [facility] Aug 24, 2021 11:30 AM VA-TOBACCO USE MED NO [facility] Aug 24, 2021 11:30 AM VA-TOBACCO USE WI 30 MIN OF WAKEUP [facility] Aug 24, 2021 11:30 AM VA-TOBACCO USER EVERY DAY [facility] May 11, 2020 09:35 AM VA-TOBACCO DOESNT USE WI 30 MIN WAKEUP [facility] May 11, 2020 09:35 AM VA-TOBACCO USE 30 YEARS OR MORE [facility] May 11, 2020 09:35 AM VA-TOBACCO USE ADVICE [facility] May 11, 2020 09:35 AM VA-TOBACCO USE TECHNICAL ACCOUNT REPRESENTATIVE NO [facility] May 11, 2020 09:35 AM VA-TOBACCO USE MED NO [facility] May 11, 2020 09:35 AM VA-TOBACCO USER EVERY DAY [facility] Jan 28, 2019 10:44 AM VA-TOBACCO DOESNT USE WI 30 MIN [place]UP [facility] Jan 28, 2019 10:44 AM VA-TOBACCO USE 5 TO 15 YEARS [facility] Jan 28, 2019 10:44 AM VA-TOBACCO USE ADVICE [facility] Jan 28, 2019 10:44 AM VA-TOBACCO USE TECHNICAL ACCOUNT REPRESENTATIVE [facility] Jan 28, 2019 10:44 AM VA-TOBACCO USE MED NO [facility] Jan 28, 2019 10:44 AM VA-TOBACCO USER EVERY DAY [facility] Nov 06, 2017 09:56 AM CURRENT SMOKER [facility] Nov 06, 2017 09:56 AM V1-PT NOT INTEREST ED IN QUIT TOBACCO USE [facility] Sep 15, 2017 02:08 PM CURRENT SMOKER reports smoking about 1/2 pack small cigars/day [facility] Encounter Notes: All associated encounter notes This section contains the clinical notes associated to the Encounter. Date/Time Encounter Note(s) Provider Source Apr 20, 2025 02:38 PM PSYCHIATRY NOTE: LOCAL TITLE: PSYCHIATRY NOTE STANDARD TITLE: PSYCHIATRY NOTE DATE OF NOTE: APR 20, 2025@14:38 ENTRY DATE: APR 20, 2025@14:38:42 AUTHOR: DENISSE WORKMAN EXP COSIGNER: URGENCY: STATUS: COMPLETED 35 min for encounter, including chart review, interview, charting chart reviewed Patient relatively stable. Depression again generally remains improved, but again some periods of increased mild sx's when under stress. PTSD symptoms/irritability again fluctuate with stress (although reports irritability better). Affect brightens appropriately. The patient denies SI and violent ideation, but has past h/o chronic intermittent SI w/o plan or intent. Thoughts are well organized. No paranoid or delusional content presented. Denies hallucinations. Speech normal. Cognitive exam grossly unchanged. Again, has interests, for example reading, he again becomes animated as he discusses his reading (novels, news). As with each interview, the patient clearly enjoys talking, telling stories. He again has good sense of humor. Again, reasonable hygiene. Insomnia better Pt reports ongoing PTSD sx's - see my 03/08/25 note for more hx of sx's We reviewed the current psychiatric medication and the patient again has improved in terms of depression and is tolerating medication well. Despite having some mild symptoms at times, overall the improvement is significant and the patient wants to keep the medication the same, he does not want dose increase. Despite the current psychiatric medication helping depression, patient reports ongoing PTSD symptoms as mentioned above (although partially improved) Denies psych med side effects. Denies daytime sedation. Reports med compliance h/o heavy alcohol -- stopped over 5 yrs ago, except reports very occasional drink; denies recent cannabis; denies street drugs Pt ; Pt is close to his son, who lives w him. 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 CAD - Coronary Artery Disease ([facility] [id number]) 2. Paresthesia of hand 3. Pulmonary emphysema 4. Cellulitis and abscess of lower leg 5. Heart murmur 6. Cardiac arrhythmia 7. Actinic keratosis 8. Headache 9. Insomnia 10. Unsteady gait 11. Vitamin D Deficiency ([facility] [id number]) 12. Vitamin B12 Deficiency ([facility] [id number]) 13. Diarrhea 14. CAD - Coronary Artery Disease ([facility] [id number]) 15. Pain of left knee joint 16. Tobacco user 17. Peripheral venous insufficiency 18. Onychomycosis 19. History of cholecystectomy 20. Chronic back pain 21. Neck pain 22. Co-Management 23. Depression ([facility] [id number]) 24. Hyperglycemia due to type 2 diabetes mellitus 25. Hyperlipidemia 26. Essential hypertension 27. Neuropathy due to type 2 diabetes mellitus 28. Posttraumatic stress disorder Active Outpatient Medications (including [...] ONCE DAILY Indication: FOR HIGH CHOLESTEROL 4) CARBOXYMETHYLCELLULOSE NA 0.5% OPH SOLN INSTILL 1 DROP INTO ACTIVE EACH EYE THREE TIMES DAILY NEEDED Indication: FOR DRY EYE 5) CEFADROXIL 500MG CAP TAKE ONE CAPSULE BY MOUTH TWICE DAILY ACTIVE Indication: FOR SKIN INFECTION 6) DULOXETINE HCL 60MG EC CAP TAKE ONE CAPSULE BY MOUTH ONCE ACTIVE DAILY Indication: DEPRESSION 7) GLUCAGON 3MG NASAL INHL,1 PK SPRAY 1 INHALATION ONE NOSTRIL ACTIVE ONE TIME NEEDED Indication: FOR LOW BLOOD SUGAR 8) GLUCOSE 4GM CHEW TAB CHEW THREE TO FOUR TABLETS BY MOUTH ACTIVE NEEDED TO TREAT LOW BLOOD SUGAR BELOW 70 Indication: FOR LOW BLOOD SUGAR 9) GLUCOSE SENSOR DEXCOM G7 USE 1 SENSOR DIRECTED EVERY 10 ACTIVE DAYS 10) INSULIN,ASPART(EQV-NOVLG)100UN/ML FLXPEN INJECT 20 UNITS ACTIVE SUBCUTANEOUSLY TWICE DAILY INJECT 15 MINUTES BEFORE MEALS Indication: FOR DIABETES 11) INSULIN,GLARGINE 100 UNT/ML 3ML SOLOSTAR INJECT 30 UNITS ACTIVE SUBCUTANEOUSLY TWICE DAILY Indication: FOR DIABETES 12) LOPERAMIDE HCL 2MG CAP TAKE ONE CAPSULE BY MOUTH THREE TIMES ACTIVE DAILY WITH MEALS Indication: FOR DIARRHEA 13) MAGNESIUM OXIDE 420MG TAB TAKE ONE TABLET BY MOUTH ONCE ACTIVE DAILY Indication: FOR MAGNESIUM SUPPLEMENTATION 14) MELATONIN 3MG CAP/TAB TAKE THREE CAPSULE/TABLET BY MOUTH AT ACTIVE (S) BEDTIME NEEDED INSOMNIA Indication: FOR INSOMNIA 15) MIRTAZAPINE 30MG TAB TAKE ONE TABLET BY MOUTH AT BEDTIME FOR ACTIVE (S) DEPRESSION/MOOD 16) MUPIROCIN 2% OINT APPLY THIN LAYER TOPICALLY EVERY OTHER ACTIVE DAYS Indication: FOR SKIN INFECTION 17) NEEDLE,PEN 31G,5MM USE 1 NEEDLE SUBCUTANEOUSLY FOUR TIMES A ACTIVE DAY FOR USE WITH PEN DEVICE 18) SEMAGLUTIDE 0.25MG/0.375ML INJ PEN 3ML INJECT 0.5MG ACTIVE SUBCUTANEOUSLY ONCE A WEEK Indication: FOR TYPE 2 DIABETES MELLITUS 19) TOPIRAMATE 25MG TAB TAKE ONE TABLET BY MOUTH TWICE DAILY ACTIVE (S) NEEDED FOR ANXIETY/HEADACHE (OFF LABEL FOR ANXIETY) 20) UREA 10% LOTION APPLY MODERATE AMOUNT TOPICALLY [...] VITAMIN D3 (CHOLECALCIFEROL) TAB BY MOUTH ACTIVE 27 Total Medications PSYCHIATRIC MEDICATION HISTORY: amitryptiline -- [...] PLAN: Performed careful risk assessment. See C-SSRS 02/2025 - same today. The patient denies suicidal [...] Perla, and supportive sessions w Camila Again, see 05/09/24 primary care addendum to my 03/17/24 no-show note, also see my subsequent addenda [...] is slow and to avoid w/d syndrome ( I reviewed w pt) - benefits of [...] because the side effect profile. CONTINUE MELATONIN 9 MG QHS WHEN NECESSARY INSOMNIA, helpful [...] to primary care's notification about the increased QTC -- see 05/09/24 primary care addendum to my 03/17/24 no-show note) --fortunately both zoloft and remeron are thought [...] he likes Spoke previously with Audrey MCKOY [phone] -- although pt now declines VN - [...] /caio/ DENISSE WORKMAN MD STAFF PSYCHIATRIST Signed: 04/20/2025 18:28 DENISSE WORKMAN
--- OUTSIDE RECORDS SUMMARY | 2025-06-06 10:00 | XMS_ITS | Encounter Summary ---
Author Name [facility] [place] Organization [facility] [place] Address [address] [place] [address] Care Team Providers Care Delinquent Tax Collection Assistant Name Role Phone CHRISTI ARIAS Primary Care [...] [facility] ([facility]) MEDICARE ADVANTAGE [facility] ([facility]) Nov 17, 2017 NONE [id number] DARRELL HUTCHINS PATIENT [facility] ([facility]) MEDICARE ADVANTAGE [facility] ([facility]) Nov 17, 2017 [id number] DARRELL HUTCHINS PATIENT MEDICAID MEDICAID [facility] Jan 15, 2017 MEDICAI D [id number] DARRELL HUTCHINS PATIENT Selected Encounter This section includes the information on record at [place] for the Encounter. Date/Time Encounter Type Encounter Description Reason Provider Source Jun 06, 2025 02:00 PM OFFICE O/P NEW LOW 30 MIN PODIATRY ICD-10-CM L60.3 Nail dystrophy DEJA HERRERA [facility] Encounter Template Text not used by [place] Assessments - Encounter Diagnoses This section includes the primary and secondary diagnoses documented for the Encounter. Date/Time Primary/Secondary Diagnosis Diagnosis Name Provider Source Jun 06, 2025 02:53 PM PRIMARY Nail dystrophy DEJA HERRERA [place] Jun 06, 2025 02:53 PM SECONDARY Idiopathic progressive neuropathy DEJA HERRERA [place] Jun 06, 2025 02:53 PM SECONDARY Type 2 diabetes mellitus without complications DEJA HERRERA [place] Plan of Treatment: Future Appointments (+ 6 months) and Future Tests (+/- 45 days) The Plan of Treatment section includes future care activities for the patient from [facility] [place] [facility] This section includes future appointments and future orders which are active, pending or scheduled. Future Appointments This section includes appointments that were scheduled to occur 6 months from the date of the Encounter, up to a maximum of 20 appointments. The data comes from all [facility]. Appointment Date/Time Appointment Type Appointme nt Facility Name Jun 13, 2025 01:00 PM AMBULATORY - MEDICINE [facility] Jun 14, 2025 01:00 PM AMBULATORY - PSYCHIATRY [facility] Jun 14, 2025 02:00 PM AMBULATORY - PSYCHIATRY [facility] Jul 12, 2025 01:00 PM AMBULATORY - PSYCHIATRY [facility] Jul 22, 2025 01:00 PM AMBULATORY - MEDICINE [facility] Jul 29, 2025 01:30 PM AMBULATORY - PSYCHIATRY [facility] Aug 23, 2025 02:00 PM AMBULATORY PSYCHIATRY [facility] Sep 26, 2025 01:00 PM AMBULATORY - MEDICINE [facility] Oct 10, 2025 01:30 PM AMBULATORY - MEDICINE [facility] Active, Pending, and Scheduled Orders This section includes a listing of several types of active, pending, and scheduled orders, including clinic medications orders, diagnostic test orders, procedure orders and consult orders; where the start date of the order is 45 days before the date of the Encounter or 45 days after the date of theEncounter. The data comes from all [facility]. Test Date/Time Test Type Test Details Facility Name Jun 10, 2025 02:44 PM Consult Order COMM[facility]ITY CARE-VASCULAR SURGERY Cons Labeling Specialist's Choice [place] Lab Results: +/- 30 days of the encounter This section includes the Chemistry and Hematology Lab Results on record with [place] for the patient. Radiology Reports and Pathology Reports are provided separately, in subsequent sections. Lab Results This section contains the Chemistry/Hematology Results that were resulted 30 days before or 30 daysafter the date of the Encounter. Date/Time Source Result Type Result - Unit Interpretation Reference Range Specimen Type Comment Jun 06, 2025 02:47 PM [facility] BASIC METABOLIC PANEL (non-fasting) SERUM Spe cimen Type: SERUM No comment entered. Ordering Provider: LAMBERTO MIKE Report Released Date/Time: Jun 06, 2025 02:37 PM Reporting Lab: [address] [address] Performing Lab: [address] [address] UREA NITROGEN 21 mg/dL 8-26 GLUCOSE 143 mg/dL H 65-100 SODIUM 136 mmol/L 136-145 POTASSIUM 3.8 mmol/L 3.5-5.1 CHLORIDE 106 mmol/L 98-107 CO2 23 meq/L 23-31 CALCIUM 8.5 mg/dL L 8.8-10 CREATININE, Serum 0.69 mg/dL L 0.72-1.25 eGFR(CKD-EPI 2020) >90 mL/min >60 Jun 06, 2025 02:47 PM [facility] HEMOGLOBIN A1C PANEL BLOOD Specimen Type: BLO OD Comment: Values obtained from A1C measurements can vary. For atypical A1C assays, a reported value of 7.0 could actually be between 6.72 and 7.28 if measured by a reference method. A reported value of 9.0 could actually be between 8.73 and 9.27. Ref: http://www.ngsp.org/CAPdata.asp Ordering Provider: LAMBERTO MIKE Report Released Date/Time: Jun 06, 2025 02:37 PM Reporting Lab: [address] [address] Performing Lab: [address] [address] HEMOGLOBIN A1C 7.7 H 4.0-5.6 Jun 06, 2025 02:47 PM [facility] CBC BLOOD Specimen Type: BLOOD No comment entered. Ordering Provider: LAMBERTO MIKE Report Released Date/Time: Jun 06, 2025 02:37 PM Reporting Lab: [facility] [address] [facility] [address] Performing Lab: [facility] [address] [facility] [address] WBC 8.08 10*3/uL 4.50-11.00 RBC 4.38 10*6/uL 4.23-5.66 HGB 13.5 g/dL 12.8-17 HCT 39.3 39.2-50.4 MCV 89.7 fL 82-99 MCHC 34.4 g/dL 30.8-35.1 PLT 234 10*3/uL 140-360 MPV 10.0 fL 9.2-12.4 RDW-CV 13.0 12.0-16.0 MCH 30.8 pg 26.2-32.6 Social History: Smoking Status (Most current) and Tobacco Use (All prior to encounter date) This section includes the most current, and the historical, smoking and tobacco- related health factors from the [place] facility where the Encounter took place. Current Smoking Status This section includes the most current smoking, or tobacco-related health factor, from the [place] facility where the Encounter took place. Date/Time Current Smoking Status Comment [facility] Aug 24, 2021 11:30 AM VA-TOBACCO USE [place] 30 MIN OF WAKE UP [place] Tobacco Use History This section includes a history of the smoking, or tobacco-related health factors, that were collected on or before the date of the Encounter. The data comes from the [place] facility where the Encounter took place. 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 [place] Aug 24, 2021 11:30 AM VA-TOBACCO USE MED NO [place] Aug 24, 2021 11:30 AM VA-TOBACCO USE WI 30 MIN OF WAKEUP [place] Aug 24, 2021 11:30 AM VA-TOBACCO USER EVERY DAY [place] May 11, 2020 09:35 AM VA-TOBACCO DOESNT USE WI 30 MIN EVANSPORTUP [place] May 11, 2020 09:35 AM VA-TOBACCO USE 30 YEARS OR MORE [place] May 11, 2020 09:35 AM VA-TOBACCO USE ADVICE [place] May 11, 2020 09:35 AM 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 [place] May 11, 2020 09:35 AM VA-TOBACCO USE MED NO [place] May 11, 2020 09:35 AM VA-TOBACCO USER EVERY DAY [place] Jan 28, 2019 10:44 AM VA-TOBACCO DOESNT USE WI 30 MIN WAKEUP [place] Jan 28, 2019 10:44 AM VA-TOBACCO USE 5 TO 15 YEARS [place] Jan 28, 2019 10:44 AM VA-TOBACCO USE ADVICE [place] Jan 28, 2019 10:44 AM 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 Date/Time Encounter Note(s) Provider Source Jun 06, 2025 01:48 PM PODIATRY CONSULT: LOCAL TITLE: CONSULT REPORT/PODIATRY STANDARD TITLE: PODIATRY CONSULT DATE OF NOTE: JUN 06, 2025@13:48 ENTRY DATE: JUN 06, 2025@13:48:28 AUTHOR: DEJA HERRERA EXP COSIGNER: URGENCY: STATUS: COMPLETED NAME: LISSETTE HUTCHINS DATE: JUN 06, 2025 : Dec PCP: CHRISTI ARIAS LAST SEEN: INITIAL CONSULT VISIT TODAY(LAST SEEN 08/09/2020) NOTE: [facility] HPI: Pt. is a 75 yo alert WDWN CAUC MALE who presents for initial podiatric examination with Dr. Herrera for treatment of a presenting complaint of a painful THICK ingrown toenails. Patient has TYPE II DM & is at risk of injury with self or other non-professional care. Patient has been referred by: DR. ARIAS Location of symptoms are: HALLUX NAILS BILATERAL LEFT SEVERELY THICKENED HE STATES THAT HE HAS BEEN UNABLE TO BE SCHEDULED FOR SOME TIME. Onset of symptoms has been several YEARS due to this being a recurrent condition that has been exacerbating over the past few MONTHS. Duration of symptoms is daily with periods of exacerbation and remission. Description of symptoms is of an aching-throbbing nature. Contributing factors are: shoes and increased activity. Previous treatment: SEEN BY ME 08/09/2022 AND LACK OF CEL CARE PMH: Active problems - Computerized Problem List is the source for the followin. CAD - Coronary Artery Disease ([facility] [id number]) 2. Paresthesia of hand 3. Pulmonary emphysema 4. Cellulitis and abscess of lower leg 5. Heart murmur 6. Cardiac arrhythmia 7. Actinic keratosis 8. Headache 9. Insomnia 10. Unsteady gait 11. Vitamin D Deficiency ([facility] [id number]) 12. Vitamin B12 Deficiency ([facility] [id number]) 13. Diarrhea 14. CAD - Coronary Artery Disease ([facility] [id number]) 15. Pain of left knee joint 16. Tobacco user 17. Peripheral venous insufficiency 18. Onychomycosis 19. History of cholecystectomy 20. Chronic back pain 21. Neck pain 22. Co-Management 23. Depression ([facility] [id number]) 24. Hyperglycemia due to type 2 diabetes mellitus 25. Hyperlipidemia 26. Essential hypertension 27. Neuropathy due to type 2 diabetes mellitus 28. Posttraumatic stress disorder *NOTE: REVIEWED ABOVE, NOTING NON-CONTRIBUTORY TO THE CC OTHER THAN THE PRESENCE OF TYPE II DM WITH NEUROPATHY & PVD Family History: Non-contributory Social History: N/A Current medications: Active Outpatient Medications (including Supplies): *NOTE: DENIES ANY RECENT CHANGES IN MEDS UPON QUESTIONING TODAY-SEE RECONCILIATION PERFOMED THIS DATE BELOW TOBACCO USE = NONE Active Outpatient Medications Status ====== 1) ALCOHOL PREP PAD USE 1 PAD [...] DAILY NEEDED Indication: FOR DRY EYE 5) DULOXETINE HCL 60MG EC CAP TAKE ONE CAPSULE BY MOUTH ONCE ACTIVE DAILY Indication: DEPRESSION 6) GLUCOSE 4GM CHEW TAB CHEW THREE TO FOUR TABLETS BY MOUTH ACTIVE NEEDED TO TREAT LOW BLOOD SUGAR BELOW 70 Indication: FOR LOW BLOOD SUGAR 7) GLUCOSE SENSOR DEXCOM G7 USE 1 SENSOR DIRECTED EVERY 10 ACTIVE DAYS 8) INSULIN,ASPART(EQV-NOVLG)100UN/ML FLXPEN INJECT 20 UNITS ACTIVE SUBCUTANEOUSLY TWICE DAILY INJECT 15 MINUTES BEFORE MEALS Indication: FOR DIABETES 9) INSULIN,GLARGINE 100 UNT/ML 3ML SOLOSTAR INJECT 30 UNITS ACTIVE SUBCUTANEOUSLY TWICE DAILY Indication: FOR DIABETES 10) LOPERAMIDE HCL 2MG CAP TAKE ONE CAPSULE BY MOUTH THREE TIMES ACTIVE DAILY WITH MEALS Indication: FOR DIARRHEA 11) MAGNESIUM OXIDE 420MG TAB TAKE ONE TABLET BY MOUTH ONCE ACTIVE DAILY Indication: FOR MAGNESIUM SUPPLEMENTATION 12) MELATONIN 3MG CAP/TAB TAKE THREE CAPSULE/TABLET BY MOUTH AT ACTIVE BEDTIME NEEDED INSOMNIA Indication: FOR INSOMNIA 13) MIRTAZAPINE 30MG TAB TAKE ONE TABLET BY MOUTH AT BEDTIME FOR ACTIVE DEPRESSION/MOOD 14) MUPIROCIN 2% OINT APPLY THIN LAYER TOPICALLY EVERY OTHER ACTIVE DAYS Indication: FOR SKIN INFECTION 15) NEEDLE,PEN 31G,5MM USE 1 NEEDLE SUBCUTANEOUSLY FOUR TIMES A ACTIVE DAY FOR USE WITH PEN DEVICE 16) SEMAGLUTIDE 0.25MG/0.375ML INJ PEN 3ML INJECT 0.5MG ACTIVE SUBCUTANEOUSLY ONCE A WEEK Indication: FOR TYPE 2 DIABETES MELLITUS 17) TOPIRAMATE 25MG TAB TAKE ONE TABLET BY MOUTH TWICE DAILY ACTIVE NEEDED FOR ANXIETY/HEADACHE (OFF LABEL FOR ANXIETY) 18) UREA 10% LOTION APPLY MODERATE AMOUNT TOPICALLY TWICE DAILY ACTIVE *FOR EXTERNAL USE ONLY* Indication: FOR DRY SKIN Active Non-VA Medications Status ====== 1) Non-VA ASPIRIN 81MG EC TAB 81MG [...] VITAMIN D3 (CHOLECALCIFEROL) TAB BY MOUTH ACTIVE 25 Total Medications Allergies:Patient has answered NKA Previous Surgery/Hospitalization: N/A TO THE CC HEIGHT:250 lb [113.40 kg] (03/18/2025 11:41) WEIGHT:74 in [188.0 cm] (03/18/2025 11:41) REVIEW OF SYSTEMS: DEFERRED BEING NON-CONTRIBUTORY TO THE CC & I HAVE REVIEWED THE PCP NOTES & PMH WELL. O: DERMATOLOGICAL: Exam reveals skin color TO BE RUBOROUS, text to be DRY AND SCALY. Temp is diminished warm to cool proximal to distal. There is absence of hair noted. Nails are thickened yellow-brown discolored and displaying flakiness, crumbling, sub-ungual debris and rubor in the affected nail grooves. The affected nails are 1-2-3-4-5 bilat WITH SEVERE THICKENING OF THE HALLUX BILAT. There are no superficial painful hyperkeratotic lesions noted at this time. There are no rashes, ulcers, indurations or nodules noted. VASCULAR: Exam reveals DP & PT pulses to be absent non-palpable bilateral. CFT is >3 sec x 10. There are no superficial varices noted and there is +2 edema noted. MUSCULOSKELETAL: Exam reveals muscle strength and tone to be equal & symmetrical bilaterally & WNL for an individual of this age and present physical-medical condition. There is pain free ROM at all joints distal to and including the ankle. *THERE ARE NO APPARENT BONY ABNORMALITIES NOTED AT THIS TIME. NEUROLOGICAL: Exam reveals S/D, vibratory, light touch & proprioception sensations to be equal & symmetrical bilaterally & diminished for an individual of this age and present physical-medical status. Protective sensation utilizing a [place] lOg monofilament is 0/10 bilateral. BIOMECHANICAL: Exam is deferred at this time as BEING non-contributory to the cc . A: Clinical Impression is painful onychocryptic clinically mycotic dystrophic nails in the presence of [id number]. P: Treatment consists of debridement-reduction of all nails via manual & electric means with excision of the offending nail borders and thinning of the nail plates to the point of imminent bleeding. All care rendered without complications & the patient is progressing well after podiatric care this date and will be scheduled for periodic podiatric care in an attempt to prevent future complications due to the underlying medical conditions. Treatment by a non-professional could be extremely hazardous to the patient's wellbeing due to the underlying medical conditions. RTC: 16 Weeks(10/17 @ 1:30PM) *DISCUSSED NEW PROTOCOLS AND CALLED ANNETTE TODAY FOR RESCHEDULING I DISCUSSED THE FINDINGS & PLAN WITH PATIENT (UNCHANGED SINCE PREVIOUS VISIT) & PATIENT AGREES AND UNDERSTANDS PLAN Medication Reconciliation: PERFORMED TODAY - SEE BELOW. Outpatient: Has the patient been taking medications as documented in the EMLR? YES: The patient has been taking medications as documented in the EMLR. Essential Medication List for Review used to complete this medication reconciliation. INCLUDED IN THIS LIST: Alphabetical list of active outpatient prescriptions dispensed from this [place] (local) and dispensed from another [place] or [place] facility (remote) as well as [...] Remote Allergy/ADR Data available for this patient [place] [facility] [place] [facility] No Known Allergies Med Recon NoGlossary (Tool #1) INCLUDED IN THIS LIST: Alphabetical list of active outpatient prescriptions dispensed from this [place] (local) and dispensed from another [place] or [facility] facility (remote) as well as inpatient orders (local pending and active), local clinic medications, locally documented non-VA medications, and local prescriptions that have or been discontinued in the past 90 days. Non-VA Meds Last Documented On: Oct 08, 2022 NOTE The display of VA prescriptions dispensed from another [place] or [facility] facility (remote) is limited to active outpatient prescription entries matched to National Drug File at the originating site and may not include some items such as investigational drugs, compounds, etc. NOT INCLUDED IN THIS LIST: Medications self-entered by the patient into personal health records (i.e. [employer]) are NOT included in this list. Non-VA medications documented outside this [place], remote inpatient orders (regardless of status) and remote clinic medications are NOT included in this list. The patient and provider must always discuss medications the patient is taking, regardless of where the medication was dispensed or obtained. OUTPT AMMONIUM LACTATE 12% LOTION (Status = Discontinued) APPLY SMALL AMOUNT TOPICALLY ONCE DAILY FOR DRY SKIN FOR DRY IRRITATED SKIN Rx# [id number] Last Released: 06/09/24 Qty/Days Supply: 240/30 Rx Expiration Date: 06/10/25 Refills Remainin Indication: FOR DRY SKIN OUTPT AMMONIUM LACTATE 12% LOTION (Status = Active) APPLY SMALL AMOUNT TOPICALLY ONCE DAILY FOR DRY SKIN FOR DRY IRRITATED SKIN Rx# [id number] Last Released: 03/21/25 Qty/Days Supply: 240/30 Rx Expiration Date: 03/19/26 Refills Remainin Indication: FOR DRY SKIN Non-VA ASPIRIN 81MG EC TAB TAKE ONE TABLET BY MOUTH EVERY DAY Patient wants to buy from Non-VA pharmacy. Medication prescribed by Non-VA provider. OUTPT ATORVASTATIN CALCIUM 80MG TAB (Status = Discontinued) TAKE ONE-HALF TABLET BY MOUTH ONCE DAILY FOR HIGH CHOLESTEROL Rx# [id number] Last Released: 11/23/24 Qty/Days Supply: 45 Rx Expiration Date: 09/11/25 Refills Remainin Indication: FOR HIGH CHOLESTEROL OUTPT ATORVASTATIN CALCIUM 80MG TAB (Status = Active) TAKE ONE-HALF TABLET BY MOUTH ONCE DAILY FOR HIGH CHOLESTEROL Rx# [id number] Last Released: 03/22/25 Qty/Days Supply: Rx Expiration Date: 03/19/26 Refills Remainin Indication: FOR HIGH CHOLESTEROL OUTPT CARBOXYMETHYLCELLULOSE NA 0.5% OPH SOLN (Status = Active) INSTILL 1 DROP INTO EACH EYE THREE TIMES DAILY NEEDED FOR DRY EYE Rx# [id number] Last Released: 04/06/25 Qty/Days Supply: Rx Expiration Date: 04/06/26 Refills Remainin Indication: FOR DRY EYE OUTPT CEFADROXIL 500MG CAP (Status = ) TAKE ONE CAPSULE BY MOUTH TWICE DAILY FOR SKIN INFECTION Rx# [id number] Last Released: 04/12/25 Qty/Days Supply: 30/05 Rx Expiration Date: 05/12/25 Refills Remainin Indication: FOR SKIN INFECTION Non-VA CYANOCOBALAMIN TAB TAKE BY MOUTH Medication prescribed by Non-VA provider. OUTPT DULOXETINE HCL 60MG EC CAP (Status = Active) TAKE ONE CAPSULE BY MOUTH ONCE DAILY DEPRESSION Rx# [id number] Last Released: 04/20/25 Qty/Days Supply: 6060 Rx Expiration Date: 01/26/26 Refills Remainin Indication: DEPRESSION Non-VA GABAPENTIN 300MG CAP TAKE 1 CAPSULE BY MOUTH THREE TIMES A DAY Patient wants to buy from Non-VA pharmacy. Medication prescribed by Non-VA provider. OUTPT GLUCAGON 3MG NASAL INHL,1 PK (Status = ) SPRAY 1 INHALATION ONE NOSTRIL ONE TIME NEEDED FOR LOW BLOOD SUGAR Rx# [id number] Last Released: 03/23/25 Qty/Days Supply: 12/16 Rx Expiration Date: 04/20/25 Refills Remainin Indication: FOR LOW BLOOD SUGAR OUTPT GLUCOSE 4GM CHEW TAB (Status = Discontinued) CHEW THREE TO FOUR TABLETS BY MOUTH NEEDED TO TREAT LOW BLOOD SUGAR BELOW 70 Rx# [id number] Last Released: 03/17/25 Qty/Days Supply: Rx Expiration Date: 07/31/25 Refills Remainin Indication: FOR LOW BLOOD SUGAR OUTPT GLUCOSE 4GM CHEW TAB (Status = Active) CHEW THREE TO FOUR TABLETS BY MOUTH NEEDED TO TREAT LOW BLOOD SUGAR BELOW 70 Rx# [id number] Last Released: 05/09/25 Qty/Days Supply: Rx Expiration Date: 03/19/26 Refills Remainin Indication: FOR LOW BLOOD SUGAR OUTPT INSULIN,ASPART(EQV-NOVLG)100UN/ML FLXPEN (Status = Active) INJECT 20 UNITS SUBCUTANEOUSLY TWICE DAILY FOR DIABETES INJECT 15 MINUTES BEFORE MEALS Rx# [id number] Last Released: 12/20/24 Qty/Days Supply: Rx Expiration Date: 12/18/25 Refills Remainin Indication: FOR DIABETES OUTPT INSULIN,GLARGINE 100 UNT/ML 3ML SOLOSTAR (Status = Active) INJECT 30 UNITS SUBCUTANEOUSLY TWICE DAILY Rx# [id number] Last Released: 02/22/25 Qty/Days Supply: Rx Expiration Date: 12/18/25 Refills Remainin Indication: FOR DIABETES OUTPT LOPERAMIDE HCL 2MG CAP (Status = Active) TAKE ONE CAPSULE BY MOUTH THREE TIMES DAILY WITH MEALS FOR DIARRHEA Rx# [id number] Last Released: 09/10/24 Qty/Days Supply: Rx Expiration Date: 09/11/25 Refills Remainin Indication: FOR DIARRHEA OUTPT MAGNESIUM OXIDE 420MG TAB (Status = Active) TAKE ONE TABLET BY MOUTH ONCE DAILY FOR MAGNESIUM SUPPLEMENTATION Rx# [id number] Last Released: 05/09/25 Qty/Days Supply: 100 Rx Expiration Date: 01/18/26 Refills Remainin Indication: FOR MAGNESIUM SUPPLEMENTATION OUTPT MELATONIN 1MG CAP/TAB (Status = Discontinued) TAKE SIX CAPSULE/TABLET BY MOUTH AT BEDTIME NEEDED INSOMNIA Rx# [id number] Last Released: 01/20/25 Qty/Days Supply: 180 Rx Expiration Date: 10/07/25 Refills Remainin Indication: FOR INSOMNIA OUTPT MELATONIN 3MG CAP/TAB (Status = Active) TAKE THREE CAPSULE/TABLET BY MOUTH AT BEDTIME NEEDED INSOMNIA Rx# [id number] Last Released: 04/25/25 Qty/Days Supply: 180/60 Rx Expiration Date: 03/10/26 Refills Remainin Indication: FOR INSOMNIA Non-VA METFORMIN [...] BY MOUTH AT BEDTIME FOR DEPRESSION/MOOD Rx# [id number] Last Released: 04/21/25 Qty/Days Supply: 30 Rx Expiration Date: 01/26/26 Refills Remainin OUTPT MUPIROCIN 2% OINT (Status = Active) APPLY THIN LAYER TOPICALLY EVERY OTHER DAYS Rx# [id number] Last Released: 06/09/24 Qty/Days Supply: 4430 Rx Expiration Date: 06/10/25 Refills Remainin Indication: FOR SKIN INFECTION OUTPT SEMAGLUTIDE 0.25MG/0.375ML INJ PEN 3ML (Status = Active) INJECT 0.5MG SUBCUTANEOUSLY ONCE A WEEK FOR TYPE 2 DIABETES MELLITUS Rx# [id number] Last Released: 04/27/25 Qty/Days Supply: 3 Rx Expiration Date: 02/18/26 Refills Remainin Indication: FOR TYPE 2 DIABETES MELLITUS OUTPT TOPIRAMATE 25MG TAB (Status = Active) TAKE ONE TABLET BY MOUTH TWICE DAILY NEEDED FOR ANXIETY/HEADACHE (OFF LABEL FOR ANXIETY) Rx# [id number] Last Released: 04/21/25 Qty/Days Supply: 6030 Rx Expiration Date: 01/26/26 Refills Remainin OUTPT UREA 10% LOTION (Status = Discontinued) APPLY MODERATE AMOUNT TOPICALLY TWICE DAILY FOR DRY SKIN *FOR EXTERNAL USE ONLY* Rx# [id number] Last Released: 12/21/24 Qty/Days Supply: 240/30 Rx Expiration Date: 12/22/25 Refills Remainin Indication: FOR DRY SKIN OUTPT UREA 10% LOTION (Status = Active) APPLY MODERATE AMOUNT TOPICALLY TWICE DAILY FOR DRY SKIN *FOR EXTERNAL USE ONLY* Rx# [id number] Last Released: 03/21/25 Qty/Days Supply: 240/30 Rx Expiration Date: 03/19/26 Refills Remainin Indication: FOR DRY SKIN Non-VA VITAMIN B COMPLEX CAP,ORAL TAKE BY MOUTH Medication prescribed by Non-VA provider. Non-VA VITAMIN D3 (CHOLECALCIFEROL) TAB TAKE BY MOUTH Medication prescribed by Non-VA provider. SUPPLIES OUTPT ALCOHOL PREP PAD (Status = ) USE 1 PAD TOPICALLY THREE TIMES A DAY TO CLEAN SKIN FOR INJECTION ETC Rx# [id number] Last Released: 11/01/24 Qty/Days Supply: 400/90 Rx Expiration Date: 04/03/25 Refills Remainin OUTPT ALCOHOL PREP PAD (Status = Active) USE 1 PAD TOPICALLY THREE TIMES A DAY TO CLEAN SKIN FOR INJECTION ETC Rx# [id number] Last Released: 04/12/25 Qty/Days Supply: 400/90 Rx Expiration Date: 07/11/25 Refills Remainin OUTPT GLUCOSE SENSOR DEXCOM G7 (Status = Active) USE 1 SENSOR DIRECTED EVERY 10 DAYS Rx# [id number] Last Released: 04/18/25 Qty/Days Supply: Rx Expiration Date: 10/29/25 Refills Remainin OUTPT NEEDLE,PEN 31G,5MM (Status = Active) USE 1 NEEDLE SUBCUTANEOUSLY FOUR TIMES A DAY FOR USE WITH PEN DEVICE Rx# [id number] Last Released: 04/12/25 Qty/Days Supply: 400/90 Rx Expiration Date: 12/18/25 Refills Remainin /caio/ DEJA HERRERA DPM [employer]IOR [employer] OFFICE ASSISTANT Signed: 06/06/2025 14:54 DEJA HERRERA [place]
--- OUTSIDE RECORDS SUMMARY | 2025-06-13 09:00 | XMS_ITS | Encounter Summary ---
Author Name [facility] [place] Organization [facility] [place] [facility] [place] Address [address] [place] [id number] Care Team Providers Care Crew Supervisor Name Role Phone CHRISTI ARIAS Primary Care [...] Policy [facility] ([facility]) MEDICARE ADVANTAGE [facility] ([facility]) Nov 17, 2017 NONE [id number] DARRELL HUTCHINS PATIENT [facility] (R) MEDICARE ADVANTAGE [facility] ([facility]) Nov 17, 2017 [id number] DARRELL HUTCHINS PATIENT MEDICAID MEDICAID [facility] Jan 15, 2017 MEDICAI D [id number] DARRELL HUTCHINS PATIENT Selected Encounter This section includes the information on record at [place] for the Encounter. Date/Time Encounter Type Encounter Description Reason Provider Source Jun 13, 2025 01:00 PM MTMS BY PHARM ADDL 15 MIN CLINICAL PHARMACY ICD-10-CM E11.65 Type 2 diabetes mellitus with hyperglycemia DARIO MIKE E Encounter Template Text not used by [place] Assessments - Encounter Diagnoses This section includes the primary and secondary diagnoses documented for the Encounter. Date/Time Primary/Secondary Diagnosis Diagnosis Name Provider Source Jun 13, 2025 01:32 PM PRIMARY Type 2 diabetes mellitus with hyperglycemia JACQUELINE MIKE [place] Plan of Treatment: Future Appointments (+ 6 months) and Future Tests (+/- 45 days) The Plan of Treatment section includes future care activities for the patient from all [place] [facility]. This section includes future appointments and future orders which are active, pending or scheduled. Future Appointments This section includes appointments that were scheduled to occur 6 months from the date of the Encounter, up to a maximum of 20 appointments. The data comes from all [place] treatment facilities. Appointment Date/Time Appointment Type Appointme nt Facility Name Jun 14, 2025 01:00 PM AMBULATORY - PSYCHIATRY [facility] Jun 14, 2025 02:00 PM AMBULATORY - PSYCHIATRY [facility] Jul 12, 2025 01:00 PM AMBULATORY - PSYCHIATRY [facility] Jul 22, 2025 01:00 PM AMBULATORY - MEDICINE [facility] Jul 29, 2025 01:30 PM AMBULATORY - PSYCHIATRY [facility] Aug 23, 2025 02:00 PM AMBULATORY - PSYCHIATRY [facility] Sep 26, 2025 01:00 PM AMBULATORY - MEDICINE [facility] Oct 10, 2025 01:30 PM AMBULATORY - MEDICINE [facility] Active, Pending, and Scheduled Orders This section includes a listing of several types of active, pending, and scheduled orders, including clinic medications orders, diagnostic test orders, procedure orders and consult orders; where the start date of the order is 45 days before the date of the Encounter or 45 days after the date of theEncounter. The data comes from all [facility]. Test Date/Time Test Type Test Details Facility Name Jun 10, 2025 02:44 PM Consult Order [facility]ITY [facility]-VASCULAR SURGERY Cons [facility] [place] Lab Results: +/- 30 days of the encounter This section includes the Chemistry and Hematology Lab Results on record with [place] for the patient. Radiology Reports and Pathology Reports are provided separately, in subsequent sections. Lab Results This section contains the Chemistry/Hematology Results that were resulted 30 days before or 30 daysafter the date of the Encounter. Date/Time Source Result Type Result - Unit Interpretation Reference Range Specimen Type Comment Jun 06, 2025 02:47 PM [facility] BASIC METABOLIC PANEL (non-fasting) SERUM Spe cimen Type: SERUM No comment entered. Ordering Provider: LAMBERTO MIKE Report Released Date/Time: Jun 06, 2025 02:37 PM Reporting Lab: [facility] [address] [id number] Performing Lab: [facility] [address] [address] UREA NITROGEN 21 mg/dL 8-26 GLUCOSE 143 mg/dL H 65-100 SODIUM 136 mmol/L 136-145 POTASSIUM 3.8 mmol/L 3.5-5.1 CHLORIDE 106 mmol/L 98-107 CO2 23 meq/L 23-31 CALCIUM 8.5 mg/dL L 8.8-10 CREATININE, Serum 0.69 mg/dL L 0.72-1.25 eGFR(CKD-EPI 2020) >90 mL/min >60 Jun 06, 2025 02:47 PM [facility] HEMOGLOBIN A1C PANEL BLOOD Specimen [...] Jun 06, 2025 02:37 PM Reporting Lab: [facility] [address] [address] Performing Lab: [address] [address] HEMOGLOBIN A1C 7.7 H 4.0-5.6 Jun 06, 2025 02:47 PM [facility] CBC BLOOD Specimen Type: BLOOD No comment entered. Ordering Provider: LAMBERTO MIKE Report Released Date/Time: Jun 06, 2025 02:37 PM Reporting Lab: [address] [place] [address] Performing Lab: [place] [facility] [address] [address] WBC 8.08 10*3/uL 4.50-11.00 RBC 4.38 10*6/uL [...] and tobacco- related health factors from the [place] facility where the Encounter took place. Current Smoking Status This section includes the most current smoking, or tobacco-related health factor, from the [place] facility where the Encounter took place. Date/Time Current Smoking Status Comment Facil [facility] Aug 24, 2021 11:30 AM VA-TOBACCO USER EVERY DAY [place] Tobacco Use History This section includes a history of the smoking, or tobacco-related health factors, that were collected on or before the date of the Encounter. The data comes from the [place] facility where the Encounter took place. 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 [place] May 11, 2020 09:35 AM VA-TOBACCO USE MED NO [place] May 11, 2020 09:35 AM VA-TOBACCO USER EVERY DAY [place] Jan 28, 2019 10:44 AM VA-TOBACCO DOESNT USE WI 30 MIN WAKEUP [place] Jan 28, 2019 10:44 AM VA-TOBACCO USE 5 TO 15 YEARS [place] Jan 28, 2019 10:44 AM VA-TOBACCO USE ADVICE [place] Jan 28, 2019 10:44 AM VA-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 Date/Time Encounter Note(s) Provider Source Jun 13, 2025 01:18 PM PHARMACY OUTPATIEN T NOTE: LOCAL TITLE: PHARMACY CLINIC NOTE STANDARD TITLE: PHARMACY OUTPATIENT NOTE DATE OF NOTE: JUN 13, 2025@13:18 ENTRY DATE: JUN 13, 2025@13:18:40 AUTHOR: LAMBERTO MIKE COSIGNER: URGENCY: STATUS: COMPLETED Patient Name: LISSETTE HUTCHINS was seen via for follow-up for diabetes management treatment. : Dec Age: 75 Sex: MALE Race: WHITE Subjective: Subjective: Pt has difficulty walking. He is [...] is not happy w/ his job at [employer]. Pt expresses desire to leave [place] he does not like living here anymore. Pt also adds BG have been very high it's very frustrating to him. He continues to use dexcom sensor. Pt has busy month upcoming in April with doctors appt - GI ; heart , etc. Per prev: Pt went to [facility] where infection was found in his legs. 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 He has severe Crohn's disease. [...] he was seeing wound care weekly at [facility] and was dicharged spring 2022- per pt he was told they can not help him anymore. per pt he was supposed to see vascualar surgery at [facility] for evaluation of LE edema, but he he was never scheduled. not wearing compression stockings regularly Plan to readdress PVI with non-VA PCP visit this rebecca Target Goals: A1C: 7%; FB-130 mg/dL; 2HRS PP <180mg/dL. Allergies: Patient has answered NKA PERTINENT INFORMATION: Active problems - Computerized Problem List is the source for the followin. CAD - Coronary Artery Disease ([facility] [id number]) 2. Paresthesia of hand 3. Pulmonary emphysema 4. Cellulitis and abscess of lower leg 5. Heart murmur 6. Cardiac arrhythmia 7. Actinic keratosis 8. Headache 9. Insomnia 10. Unsteady gait 11. Vitamin D Deficiency ([facility] [id number]) 12. Vitamin B12 Deficiency ([facility] [id number]) 13. Diarrhea 14. CAD - Coronary Artery Disease ([facility] [id number]) 15. Pain of left knee joint 16. Tobacco user 17. Peripheral venous insufficiency 18. Onychomycosis 19. History of cholecystectomy 20. Chronic back pain 21. Neck pain 22. Co-Management 23. Depression ([facility] [id number]) 24. Hyperglycemia due to type 2 diabetes [...] DM Medications: -- glimepiride -- Novolog 70/30 Labs: HEMOGLOBIN A1C TREND Collection DT Spec HGBA1c 06/06/2025 14:47 BLOOD 7.7 H 02/17/2025 13:36 BLOOD 8.7 H 10/25/2024 13:16 BLOOD 9.4 H 08/20/2024 13:47 BLOOD 7.4 H 05/04/2024 14:38 BLOOD 8.7 H CBC TREND Collection DT Spec WBC RBC HGB HCT MCV MCH PLT 06/06/2025 14:47 BLOOD 8.08 4.38 13.5 39.3 89.7 30.8 234 02/17/2025 13:36 BLOOD 10.02 4.82 14.7 43.0 89.2 30.5 207 10/25/2024 13:16 BLOOD 8.22 4.68 14.5 41.4 88.5 31.0 229 05/04/2024 14:38 BLOOD 10.19 4.49 14.2 41.7 92.9 31.6 181 08/06/2023 14:47 BLOOD 6.63 4.63 14.2 41.4 89.4 30.7 161 CHEM 7 TREND LAB CUMULATIVE SELECTED Collection DT Spec GLUCOSE BUN CREATIN Sodium K+/Pot CL CO2 06/06/2025 14:47 SERUM 143 H 21 0.69 L 136 3.8 106 23 02/17/2025 13:36 SERUM 75 15 0.87 134 L 3.9 105 22 10/25/2024 13:16 SERUM 197 H 18 0.83 137 3.4 L 105 24 05/04/2024 14:38 SERUM 164 H 17 0.80 138 4.0 108 21 07/08/2023 09:40 SERUM 124 H 15 0.76 139 3.4 L 105 24 LAB CUMULATIVE SELECTED 2 No selection items chosen for this component. CHEM 7 Results Collection DT Spec Sodium K+/Pot CL CO2 GLUCOSE BUN 06/06/2025 14:47 SERUM 136 3.8 106 23 143 H 21 02/17/2025 13:36 SERUM 134 L 3.9 105 [...] - 50 SrCr (last 6 weeks): CREATININE-EGFR 06/06/25 14:47 0.69 L CRCL IBW: CrCl(est): 123.5 mL/min (Creat:0.69 06/06/25) CRCL ACT: 100 mL/min CRCL ADJ: 123.5 mL/min (06/06/25) Vitals: Weight (BMI): 250 lb [113.40 kg] [...] MOUTH ONCE DAILY Indication: FOR HIGH CHOLESTEROL CARBOXYMETHYLCELLULOSE NA 0.5% OPH SOLN INSTILL 1 DROP ACTIVE INTO EACH EYE THREE TIMES DAILY NEEDED Indication: FOR DRY EYE DULOXETINE HCL 60MG EC CAP TAKE ONE CAPSULE BY MOUTH ONCE ACTIVE DAILY Indication: DEPRESSION GLUCOSE 4GM CHEW TAB CHEW THREE [...] 3MG CAP/TAB TAKE THREE CAPSULE/TABLET BY MOUTH ACTIVE AT BEDTIME NEEDED INSOMNIA Indication: FOR INSOMNIA [...] MOUTH ACTIVE 24 Total Medications MEDICATION RECONCILIATION: DONE BLOOD GLUCOSE MONITORING 08/06/23 DEXCOM G7 14 [...] on on today- he will call the marketing underwriter back day avg when he places new [...] VERY LOW Sensor usage: 94% GMI: 8.5 Date: 06/13/25 Dexcom G7 7 day av l 24% VERY HIGH 26% HIGH 50% IN RANGE 0% LOW 0% VERY LOW [...] 09/08/24 pt has a lot of complaints; FOURTH OFFICER checked his BG at the visit which [...] to be expected. Pt to call the marketing underwriter back w/ 7 day avg from sensor [...] to use nasal glucagon. f/up in May DAte: 06/13/25 Time in target is at 50%. Most of the elevations are d/t pt not being adherent to insulin novlog injections. Pt to pay closer attention to that. Reviewed nturition. PT expressed feelings of hopelessness . He saw provider and RN - suicide risk has been completed. This was very fast visit d/t the above circumstances. f/uup later in Fall DIABETES A1c is above goal of <7% - Medication management Diabetes - CONTINUE Insulin glargine (Semglee) 30 units twice daily - typically 12 noon and 12 midnight -COTNINUE Insulin aspart( Novolog) BID 20 units; take 15 minutes prior to meals -CONTINUE semaglutide 0.5 mg weekly (Sundays) -CONTINUE metformin 1000 mg bid - eGFR >90ml/min on 02/2025 - Reviewed [place] lab results - Monitor for s/six hypoglycemia [...] of Preventive Care: Most recent visit to crystal grinder: non [place] ; last visit at wound [...] A1C: NOV 2021 8.0% Clinic's Next Scheduled Follow-up:August, No barriers; Patient understands and agrees to current treatment plan. If he has any questions, concerns, or changes in current health status he will call or come in to the [facility]. FUTURE APPOINTMENTS: 06/14/2025 13:00 [facility] PSYLG 3 06/14/2025 14:00 [facility] PSYTR 3 07/22/2025 13:00 [facility] 5 10/10/2025 13:30 [facility] PODIAT[facility] 1 DM type is : dmii Length of Visit: 20 minutes PBM PharmD Pharmacotherapy Rem V12: PHARMACIST INTERVENTIONS: TYPE 2 DIABETES MELLITUS Medication monitoring, no dosage change required, continue to monitor and assess /caio/ LAMBERTO MIKE CLINICAL DATA EXAMINATION CLERK Signed: 06/15/2025 22:18 Receipt Acknowledged By: 06/16/2025 08:57 /caio/ CHRISTI ARIAS MD PHYSICIAN LAMBERTO MIKE
--- OUTSIDE RECORDS SUMMARY | 2025-06-13 09:36 | XMS_ITS | Encounter Summary ---
Author Name [facility] [place] [facility] [place] [facility] [place] Address [address] [place] [address] Care Team Providers Care Temporary Help Agency Referral Clerk Name Role Phone CHRISTI ARIAS Primary Care [...] Name Patient's Relationship to Policy [facility]) MEDICARE ADVANTAGE [facility] ([facility]) Nov 17, 2017 NONE [id number] DARRELL HUTCHINS PATIENT [facility] ([facility]) MEDICARE ADVANTAGE [facility] ([facility]) Nov 17, 2017 [id number] DARRELL HUTCHINS PATIENT MEDICAID MEDICAID [facility] Jan 15, 2017 MEDICAI D [id number] DARRELL HUTCHINS PATIENT Selected Encounter This section includes the information on record at [place] for the Encounter. Date/Time Encounter Type Encounter Description Reason Provider Source Jun 13, 2025 01:36 PM [facility] MANAG[facility] - IND ICD-10-CM F43.10 Post-traumatic stress disorder, unspecified KOLECHRISTINA Johanna Encounter Template Text not used by [place] Assessments - Encounter Diagnoses This section includes the primary and secondary diagnoses documented for the Encounter. Date/Time Primary/Secondary Diagnosis Diagnosis Name Provider Source Jun 13, 2025 02:12 PM PRIMARY Post-traumatic stress disorder, unspecified CHRISTINA SHARIF SHAW Plan of Treatment: Future Appointments (+ 6 months) and Future Tests (+/- 45 days) The Plan of Treatment section includes future care activities for the patient from all [place] [facility]. This section includes future appointments and future orders which are active, pending or scheduled. Future Appointments This section includes appointments that were scheduled to occur 6 months from the date of the Encounter, up to a maximum of 20 appointments. The data comes from all [place] treatment facilities. Appointment Date/Time Appointment Type Appointme nt Facility Name Jun 14, 2025 01:00 PM AMBULATORY - PSYCHIATRY [facility] Jun 14, 2025 02:00 PM AMBULATORY - PSYCHIATRY [facility] Jul 12, 2025 01:00 PM AMBULATORY - PSYCHIATRY [facility] Jul 22, 2025 01:00 PM AMBULATORY - MEDICINE [facility] Jul 29, 2025 01:30 PM AMBULATORY - PSYCHIATRY [facility] Aug 23, 2025 02:00 PM AMBULATORY - PSYCHIATRY [facility] Sep 26, 2025 01:00 PM AMBULATORY - MEDICINE [facility] WSTRJennifer HERNANDEZ [facility] Oct 10, 2025 01:30 PM AMBULATORY - MEDICINE [facility] Active, Pending, and Scheduled Orders This section includes a listing of several types of active, pending, and scheduled orders, including clinic medications orders, diagnostic test orders, procedure orders and consult orders; where the start date of the order is 45 days before the date of the Encounter or 45 days after the date of theEncounter. The data comes from all [facility]. Test Date/Time Test Type Test Details Facility Name Jun 10, 2025 02:44 PM Consult Order COMMUNITY CARE-VASCULAR SURGERY Cons [employer]iture [employer] [facility] Lab Results: +/- 30 days of the encounter This section includes the Chemistry and Hematology Lab Results on record with [place] for the patient. Radiology Reports and Pathology Reports are provided separately, in subsequent sections. Lab Results This section contains the Chemistry/Hematology Results that were resulted 30 days before or 30 daysafter the date of the Encounter. Date/Time Source Result Type Result - Unit Interpretation Reference Range Specimen Type Comment Jun 06, 2025 02:47 PM [facility] BASIC METABOLIC PANEL (non-fasting) SERUM Spe cimen Type: SERUM No comment entered. Ordering Provider: LAMBERTO MIKE Report Released Date/Time: Jun 06, 2025 02:37 PM Reporting Lab: [facility] [address] [facility] [address] Performing Lab: [facility] [address] [facility] [address] UREA NITROGEN 21 mg/dL 8-26 GLUCOSE 143 mg/dL H 65-100 SODIUM 136 mmol/L 136-145 POTASSIUM 3.8 mmol/L 3.5-5.1 CHLORIDE 106 mmol/L 98-107 CO2 23 meq/L 23-31 CALCIUM 8.5 mg/dL L 8.8-10 CREATININE, Serum 0.69 mg/dL L 0.72-1.25 eGFR(CKD-EPI 2020) >90 mL/min >60 Jun 06, 2025 02:47 PM [facility] HEMOGLOBIN A1C PANEL BLOOD Specimen Type: BLO [...] Jun 06, 2025 02:37 PM Reporting Lab: [address] [address] Performing Lab: [address] [address] HEMOGLOBIN A1C 7.7 H 4.0-5.6 Jun 06, 2025 02:47 PM [facility] CBC BLOOD Specimen Type: BLOOD No comment entered. Ordering Provider: LAMBERTO MIKE Report Released Date/Time: Jun 06, 2025 02:37 PM Reporting Lab: [address] [address] Performing [facility]: [facility] [address] [address] WBC 8.08 10*3/uL 4.50-11.00 RBC 4.38 10*6/uL [...] and tobacco- related health factors from the [place] facility where the Encounter took place. Current Smoking Status This section includes the most current smoking, or tobacco-related health factor, from the [place] facility where the Encounter took place. Date/Time Current Smoking Status Comment Kiki edmonds Aug 24, 2021 11:30 AM VA-TOBACCO USE WI 30 MIN OF WAKE UP [facility] Tobacco Use History This section includes a history of the smoking, or tobacco-related health factors, that were collected on or before the date of the Encounter. The data comes from the [place] facility where the Encounter took place. 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 [place] May 11, 2020 09:35 AM VA-TOBACCO USE MED NO [place] May 11, 2020 09:35 AM VA-TOBACCO USER EVERY DAY [place] Jan 28, 2019 10:44 AM VA-TOBACCO DOESNT USE WI 30 MIN WAKEUP [place] Jan 28, 2019 10:44 AM VA-TOBACCO USE 5 TO 15 YEARS [facility] Jan 28, 2019 10:44 AM VA-TOBACCO USE ADVICE [place] Jan 28, 2019 10:44 AM 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 Date/Time Encounter Note(s) Provider Source Jun 13, 2025 02:39 PM MENTAL HEALTH NURS ING NOTE: LOCAL TITLE: MENTAL HEALTH/NURSING INDIVIDUAL STANDARD TITLE: MENTAL HEALTH NURSING NOTE DATE OF NOTE: JUN 13, 2025@14:39 ENTRY DATE: JUN 13, 2025@14:39:26 AUTHOR: CHRISTINA SHARIF EXP COSIGNER: URGENCY: STATUS: COMPLETED F: Mental Health/nursing individual [place] arrived at clinic for: Supportive visit-depression Diagnosis addressed: PTSD identified by name, ss, and . Blood Pressure: 102/56 (04/15/2025 13:46) Pain: 2 (04/15/2025 13:46) Patient Height: 74 in [188.0 cm] (03/18/2025 11:41) Patient Weight: 250 lb [113.40 kg] (03/18/2025 11:41) Pulse: 87 (04/15/2025 13:46) Respiration: 20 (04/15/2025 13:46) Temperature: 97.9 F [36.6 C] (04/15/2025 13:46) D: Active problems - Computerized Problem List is the source for the followin. CAD - Coronary Artery Disease (SCT 06949214) 2. Paresthesia of hand 3. Pulmonary emphysema 4. Cellulitis and abscess of lower leg 5. Heart murmur 6. Cardiac arrhythmia 7. Actinic keratosis 8. Headache 9. Insomnia 10. Unsteady gait 11. Vitamin D Deficiency ([facility] [id number]) 12. Vitamin B12 Deficiency ([facility] [id number]) 13. Diarrhea 14. CAD - Coronary Artery Disease ([facility] [id number]) 15. Pain of left knee joint 16. Tobacco user 17. Peripheral venous insufficiency 18. Onychomycosis 19. History of cholecystectomy 20. Chronic back pain 21. Neck pain 22. Co-Management 23. Depression ([facility] [id number]) 24. Hyperglycemia due to type 2 diabetes [...] MOUTH AT BEDTIME FOR ACTIVE DEPRESSION/MOOD 14) NEEDLE,PEN 31G,5MM USE 1 NEEDLE SUBCUTANEOUSLY [...] TAB BY MOUTH ACTIVE 24 Total Medications A/P: [place] was meeting with Alessandra Mike, when she alerted that he made a statement about riding his bike off of a ban . This was in the context of his increased frustrations around his poor health/mobility, and financial struggles. I sat in on the rest of their visit, and he was able to complete the visit and able to brighten and have a casual conversation with us. He agreed to come to my office to talk, and he walked to my office using his rolling walker with seat. He admitted to making that statement, but told me that he has not rode his bike in over 2 years. He said his family member had piled a bunch of junk on top it, which angered him. He tells me about the mechanical fall he had about a month ago, where his foot got caught on the grass growing on the ramp he takes to bring trash out. He had to be transported to the hospital, where he was treated and released. 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 Lissette endorsed increased depression these past few weeks, and increased difficulty sleeping (the fall likely contributed to his already increasing frustration with his health). He did well with support in talking about the things that were bothering him, and he denied any intent of harming himself. Dr. Denise and Dr. Perla joined us by Teams video separately, and they both know him well. He has appointments with both of those providers tomorrow, and denied intent of harming himself to them as well. He declined Dr. Denise's offer of arranging inpatient hospitalization for safety and medication adjustment. He did not meet criteria for involuntary hospitalization. We updated his safety plan, and he was given a copy of this to take home. I assisted him to primary care check out desk for him to make a follow up appointment for his diabetes in September. I then walked with him out to his truck, and assisted him with getting his walker into the vehicle. Appearance and Behavior: Dressed appropriately-using rolling walker with seat, pleasant and conversational. Oriented in all spheres: A&O x4 Eye Contact: Good Speech: RRRT Mood/Affect: Depressed, able to brighten Angie/hypomania: none Anxiety: R/T finances and health Thought content: Help seeking-feeling more depressed,fustrated with health AH/VH: None Sleep: C/O poor sleep Upcoming Appointments: 06/14/2025 13:00 [facility] MHC PSYLG 3 06/14/2025 14:00 [facility] PSYTR 3 07/22/2025 13:00 [facility] PACT 5 09/26/2025 13:00 [facility] PACT 2 10/10/2025 13:30 [facility] 1 Patient provided with [facility] Crisis Line number(4-544-779-TPFU press 1) or (998 press 1) and urged to call one of those numbers if at any time there are thoughts about suicide,or they can call 911 or go to nearest [facility] 06/14, however is aware that he/she can call or walk-in at anytime prior to next appointment. No barriers; understands and agrees to current treatment plan. If has any questions, concerns, or changes in current health status will call or come in to the [place]. 60 minutes spent in patient care and education. /caio/ CHRISTINA SHARIF Registered Nurse Signed: 06/13/2025 15:17 CHRISTINA SHARIF Jun 13, 2025 01:36 PM SUICIDE PREVENTION NOTE: LOCAL TITLE: SUICIDE PREVENTION SAFETY PLAN STANDARD TITLE: SUICIDE PREVENTION NOTE DATE OF NOTE: JUN 13, 2025@13:36 ENTRY DATE: JUN 13, 2025@13:36:58 AUTHOR: CHRISTINA SHARIF EXP COSIGNER: URGENCY: STATUS: COMPLETED SAFETY PLAN Please follow the steps described below on your Safety Plan. If you are experiencing a medical or mental health emergency, please call 911, at any time. If you are unable to reach your safety contacts or you are in crisis, please call the [facility] Crisis Line at (press 1). Step 1: Triggers, Risk Factors and Warning Signs How will you know when you are in crisis and that the Safety Plan should be used? What are your personal red flags? 1. Increased depression 2. Poor hygiene 3. Increased physical problems Step 2: Internal Coping Strategies What can you do, on your own, to help you stay safe and not act on your suicidal thoughts or urges in the future? What have you done in the past to stay safe? 1. Read paper 2. Read fiction- Med Zavala, Paolo Barriga-mystery books 3. Listen to music -- [employer]ual[employer]eds 4. Make radha hobbs's 5. Watch TV, sports, Nascar when available Step 3: Social Contacts Who May Distract from the Crisis Other than mental health providers and counselors, who can you contact who helps take your mind off your problems or helps you feel better? Name: Minesh Bradley Phone number: [phone] Name: Kacey ford Phone number: [phone] What public places, groups, or social events help you feel better? Examples of social settings include community events, beaches, [place], coffee shops, malls, churches, clubs, 12 step meetings, aftercare groups, support groups, Veterans organizations, [facility] social events. 1. Go out with lesley for the day- restaurant, car ride to [address] Step 4: Family Members or Friends Who May Offer Help Who are friends or family members who should be included in your plan? Name: Minesh bradley Phone number: see above Name: Kacey ford Phone number: see pedro Step 5: Professionals and Agencies to Contact for Help Who are the mental health professionals or professional peer supports who should be included in your plan? Please list the numbers you would call in the order you would call them. Name: Dr Perla Phone number: [phone] Name: Dr Denise Phone number: [phone] Name: Christina Phone number: [phone] Veterans Crisis Line: 988, press 1 Veterans Crisis Line Text Messaging Service: 560029 Veterans Crisis Line: https://www.veteranscriLitResline.net/chat Call 911 in an emergency If you need to go to an urgent care center or emergency room, where will you go? Facility name: [facility] or [facility] address: [facility] Facility phone number: call 911 or 988 push 1 at the prompt Local [place] site-specific emergency numbers: Step 6: Making the Environment Safe Ways to make my environment safer and barriers I will use to protect myself from these potentially lethal means: Keep lethal things out of the home has access to firearms in their home or elsewhere: No has access to opioids: No These are the people who will help me protect myself from having access to dangerous items: Name: Minesh bradley, see above Phone: See above [place]'s current, physical address: [address] [place] [address] [place]'s current phone number: [phone] Other Resources: - Virtual Hope Box smartphone application (create a hope box to remember good things in one's life) - Maketheconnection.net (source of [place]-related resources and information) - Safety Plan in PTSD Patient Financial Services Specialist: www.[place]sd.[place]/appvid/mobile/ptsdcoach_a pp.asp - Safety Plan in PTSD Patient Financial Services Specialist Video: https://www.iRx Reminderube.com/watch?v=VBm5kcrzG 0Y /es/ CHRISTINA SHARIF Registered Nurse Signed: 06/13/2025 14:12 CHRISTINA SHARIF
--- OUTSIDE RECORDS SUMMARY | 2025-06-14 09:00 | XMS_ITS | Encounter Summary ---
Author Name [facility] [place] [facility] [place] [facility] [place] [facility] [place] Address [address] [place] [address] Care Team Providers Care Bariatric Physician Name Role Phone CHRISTI ARIAS Primary Care [...] Name Patient's Relationship to Policy [facility] ([facility]) MEDICARE ADVANTAGE [facility] ([facility]) Nov 17, 2017 NONE [id number] DARRELL HUTCHINS PATIENT [facility] ([facility]) MEDICARE ADVANTAGE [facility] ([facility]) Nov 17, 2017 [id number] DARRELL HUTCHINS PATIENT MEDICAID MEDICAID [facility] Jan 15, 2017 MEDICAI D [id number] DARRELL HUTCHINS PATIENT Selected Encounter This section includes the information on record at [place] for the Encounter. Date/Time Encounter Type Encounter Description Reason Provider Source Jun 14, 2025 01:00 PM PSYTX W PT 45 [facility]ES [facility] - IND ICD-10-CM F33.9 Major depressive disorder, recurrent, unspecified OFRATEMELY Encounter Template Text not used by [place] Assessments - Encounter Diagnoses This section includes the primary and secondary diagnoses documented for the Encounter. Date/Time Primary/Secondary Diagnosis Diagnosis Name Provider Source Jun 15, 2025 04:12 PM PRIMARY Major depressive disorder, recurrent, unspecified OFEMELY MEJIA Jun 15, 2025 04:12 PM SECONDARY Reaction to severe stress, unspecified OFEMELY MEJIA Plan of Treatment: Future Appointments (+ 6 months) and Future Tests (+/- 45 days) The Plan of Treatment section includes future care activities for the patient from all [place] [facility] This section includes future appointments and future orders which are active, pending or scheduled. Future Appointments This section includes appointments that were scheduled to occur 6 months from the date of the Encounter, up to a maximum of 20 appointments. The data comes from all [place] treatment [facility]. Appointment Date/Time Appointment Type Appointme nt Facility Name Jul 12, 2025 01:00 PM AMBULATORY - PSYCHIATRY [facility] Jul 22, 2025 01:00 PM AMBULATORY - MEDICINE [facility] Jul 29, 2025 01:30 PM AMBULATORY - PSYCHIATRY [facility] Aug 23, 2025 02:00 PM AMBULATORY - PSYCHIATRY [facility] Sep 26, 2025 01:00 PM AMBULATORY - MEDICINE [facility] NTRL WSTRJennifer HERNANDEZ [facility] Oct 10, 2025 01:30 PM AMBULATORY - MEDICINE [facility] Active, Pending, and Scheduled Orders This section includes a listing of several types of active, pending, and scheduled orders, including clinic medications orders, diagnostic test orders, procedure orders and consult orders; where the start date of the order is 45 days before the date of the Encounter or 45 days after the date of theEncounter. The data comes from all [place] treatment [facility]. Test Date/Time Test Type Test Details Facility Name Jun 10, 2025 02:44 PM Consult Order [facility]-VASCULAR SURGERY Cons [employer] CABLE Lab Results: +/- 30 days of the encounter This section includes the Chemistry and Hematology Lab Results on record with [place] for the patient. Radiology Reports and Pathology Reports are provided separately, in subsequent sections. Lab Results This section contains the Chemistry/Hematology Results that were resulted 30 days before or 30 daysafter the date of the Encounter. Date/Time Source Result Type Result - Unit Interpretation Reference Range Specimen Type Comment Jun 06, 2025 02:47 PM [facility] BASIC METABOLIC PANEL (non-fasting) SERUM Spe cimen Type: SERUM No comment entered. Ordering Provider: LAMBERTO MIKE Report Released Date/Time: Jun 06, 2025 02:37 PM Reporting Lab: [facility] [address] [id number] Performing Lab: [facility] [address] [phone] UREA NITROGEN 21 mg/dL 8-26 GLUCOSE 143 mg/dL H 65-100 SODIUM 136 mmol/L 136-145 POTASSIUM 3.8 mmol/L 3.5-5.1 CHLORIDE 106 mmol/L 98-107 CO2 23 meq/L 23-31 CALCIUM 8.5 mg/dL L 8.8-10 CREATININE, Serum 0.69 mg/dL L 0.72-1.25 eGFR(CKD-EPI 2020) >90 mL/min >60 Jun 06, 2025 02:47 PM [facility] HEMOGLOBIN A1C PANEL BLOOD [...] Jun 06, 2025 02:37 PM Reporting Lab: [facility] [address] [id number] Performing Lab: [address] [id number] HEMOGLOBIN A1C 7.7 H 4.0-5.6 Jun 06, 2025 02:47 PM [facility] CBC BLOOD Specimen Type: BLOOD No comment entered. Ordering Provider: LAMBERTO MIKE Report Released Date/Time: Jun 06, 2025 02:37 PM Reporting Lab: [facility] [address] [phone] Performing Lab: [place] [facility] TASHA HERNANDEZ [facility] [address] [phone] WBC 8.08 10*3/uL 4.50-11.00 RBC 4.38 10*6/uL [...] and tobacco- related health factors from the [place] facility where the Encounter took place. Current Smoking Status This section includes the most current smoking, or tobacco-related health factor, from the [place] facility where the Encounter took place. Date/Time Current Smoking Status Comment Kiki corcoran Aug 24, 2021 11:30 AM VA-TOBACCO USER EVERY DAY CABLE Tobacco Use History This section includes a history of the smoking, or tobacco-related health factors, that were collected on or before the date of the Encounter. The data comes from the [place] facility where the Encounter took place. 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 May 11, 2020 09:35 AM VA-TOBACCO USE MED NO CABLE May 11, 2020 09:35 AM VA-TOBACCO USER EVERY DAY CABLE Jan 28, 2019 10:44 AM VA-TOBACCO DOESNT USE WI 30 MIN WAKEUP CABLE Jan 28, 2019 10:44 AM VA-TOBACCO USE 5 TO 15 YEARS CABLE Jan 28, 2019 10:44 AM VA-TOBACCO USE ADVICE CABLE Jan 28, 2019 10:44 AM VA-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 Date/Time Encounter Note(s) Provider Source Jun 15, 2025 04:13 PM ADDENDUM: LOCAL TITLE: Addendum STANDARD TITLE: ADDENDUM DATE OF NOTE: JUN 15, 2025@16:13:44 ENTRY DATE: JUN 15, 2025@16:13:45 AUTHOR: EMELY PERLA EXP COSIGNER: URGENCY: STATUS: COMPLETED Please RTC /es/ Emely Perla PhD LP [facility] Coordinator and Staff Psychologist Signed: 06/15/2025 16:13 Receipt Acknowledged By: 06/20/2025 08:15 /caio/ DANIEL RESENDEZ [employer]EARCH TECHNICIAN --- Original Document --- 06/14/25 PSYCHOLOGY NOTE: VISIT DURATION 40 minutes DIAGNOSES: Depression, tobacco use disorder VETERANS STATEMENT OF GOALS/CONCERNS: Vet's main concern this session: I'm depressed. I have no money. My health is crap and my legs don't work. I'm having bathroom issues. I wake up crying sometimes SESSION FOCUS: presented to a diabetes management appointment yesterday and reported SI with a plan, no intent and no means. He reports he is depressed today and for the past 3 weeks, coincident with a timeline of his attempt to work on getting service connected. He reports feeling the [employer] is ignoring him and doesn't want to help him. Etl Analyst normalized the disability benefit application process as a long process requiring patience and perseverence. Sahil expressed understanding and reiterated that he would try to be patient, not lose hope, and continue trying. As always, sahil brightens significantly during social/interpersonal contact. He agreed to schedule with Camila Deutsch for help with billing, and possibly to see Christina Young. Sahil speaks today about the friend he lost in the . He states he saw the friend . He also states he attended the . He states he felt sad and cried after this event. He states he got into fights and was angry after this event occurred. Sahil states he sometimes thinks 'what's the point of all this, why am I even here?' and has been thinking this more frequently recently. Today, he again reiterated he does not intend to act on his plan of riding his motorcycle off a ban. He has engaged in no preparation. He is still planning for the future, attending appointments, planning to take his son to and from work. He has not given away possessions nor said goodbyes. He notes no other changes to his behavior. He is still attending to his hygeine, medical issues, and well-being as well as he is able, and is still taking and filling medications and using medications as prescribed. Risk remains intermediate. Sahil has a copy of his safety plan, updated yesterday. INTERVENTIONS: Psychotherapeutic Interventions: active listening, validation, Risk assessment Discussion of symptoms, assessment, service connection Readiness for change: Nat is in the precontemplation/contemplation stage with respect to his goals. He identifies the problem but is not motivated to make changes, or feels incapable of making change. Nat has been educated about behavioral activation and does not feel motivated to make changes at this time. He benefits from and responds to validation, space to express emotion, and social connection created by therapy. Etl Analyst's treatment plan is to increase social engagement and use [place] to increase motivation to work on anger and/or behavioral activation. Etl Analyst's strong recommendation is for Vet to attend anger management and peer support group, EBP for PTSD, or PTSD W9 program. Vet requests monthly supportive therapy check-ins. More frequent sessions are recommended to treat depression using CBT/behavioral activation, but given Vet's stated level of motivation and desire for supportive care, monthly sessions are appropriate. also meets with Camila Deutsch for social service support. ASSESSMENT: BRIEF ASSESSMENT OF MENTAL STATUS: 1. Appearance (grooming, attire, apparent age) within normal limits: Yes- leg wounds are well cared for but still present [place] is able to wash himself but not able to shower or bathe independently [place] is a fall risk- gait is unstable. 2. Thought content was organized and goal [...] yes dysthymic Other Observations: RISK ASSESSMENT: Risk: Sahil states he sometimes thinks 'what's the point of all this, why am I even here?' and has been thinking this more frequently recently. Today, he again reiterated he does not intend to act on his plan of riding his motorcycle off a ban. He has engaged in no preparation. He is still planning for the future, attending appointments, planning to take his son to and from work. He has not given away possessions nor said goodbyes. He notes no other changes to his behavior. He is still attending to his hygeine, medical issues, and well- being as well as he is able, and is still taking and filling medications and using medications as prescribed. Risk remains intermediate. Sahil has a copy of his safety plan, updated yesterday. His chronic health conditions, trauma related symptoms, and hopelessness/helplessness increase chronic risk to moderate/intermediate risk. Nat does not use intoxicating substances which [...] Psychotherapy 38-52 min - Synchronous Telemedicine Service /es/ Emely Perla PhD LP [facility] Coordinator and Staff Psychologist Signed: 06/15/2025 16:12 EMELY PERLA CABLE Jun 14, 2025 04:34 PM PSYCHOLOGY NOTE: LOCAL TITLE: PSYCHOLOGY NOTE STANDARD TITLE: PSYCHOLOGY NOTE DATE OF NOTE: JUN 14, 2025@16:34 ENTRY DATE: JUN 14, 2025@16:34:21 AUTHOR: EMELY PERLA EXP COSIGNER: URGENCY: STATUS: COMPLETED PSYCHOLOGY NOTE Has ADDENDA VISIT DURATION 40 minutes DIAGNOSES: Depression, tobacco use disorder VETERANS STATEMENT OF GOALS/CONCERNS: Vet's main concern this session: I'm depressed. I have no money. My health is crap and my legs don't work. I'm having bathroom issues. I wake up crying sometimes SESSION FOCUS: Sahil presented to a diabetes management appointment yesterday and reported SI with a plan, no intent and no means. He reports he is depressed today and for the past 3 weeks, coincident with a timeline of his attempt to work on getting service connected. He reports feeling the [employer] is ignoring him and doesn't want to help him. Etl Analyst normalized the disability benefit application process as a long process requiring patience and perseverence. [place] expressed understanding and reiterated that he would try to be patient, not lose hope, and continue trying. As always, sahil brightens significantly during social/interpersonal contact. He agreed to schedule with Camila Deutsch for help with billing, and possibly to see Christina Young. Sahil speaks today about the friend he lost in the . He states he saw the friend . He also states he attended the . He states he felt sad and cried after this event. He states he got into fights and was angry after this event occurred. Sahil states he sometimes thinks 'what's the point of all this, why am I even here?' and has been thinking this more frequently recently. Today, he again reiterated he does not intend to act on his plan of riding his motorcycle off a ban. He has engaged in no preparation. He is still planning for the future, attending appointments, planning to take his son to and from work. He has not given away possessions nor said goodbyes. He notes no other changes to his behavior. He is still attending to his hygeine, medical issues, and well-being as well as he is able, and is still taking and filling medications and using medications as prescribed. Risk remains intermediate. Sahil has a copy of his safety plan, updated yesterday. INTERVENTIONS: Psychotherapeutic Interventions: active listening, validation, Risk assessment Discussion of symptoms, assessment, service connection Readiness for change: Nat is in the precontemplation/contemplation stage with respect to his goals. He identifies the problem but is not motivated to make changes, or feels incapable of making change. Nat has been educated about behavioral activation and does not feel motivated to make changes at this time. He benefits from and responds to validation, space to express emotion, and social connection created by therapy. Etl Analyst's treatment plan is to increase social engagement and use [place] to increase motivation to work on anger and/or behavioral activation. Etl Analyst's strong recommendation is for Nat to attend [...] (grooming, attire, apparent age) within normal limits: Yes- leg wounds are well cared for but still present [place] is able to wash himself but not able to shower or bathe independently [place] is a fall risk- gait is unstable. 2. Thought content was organized and goal [...] yes dysthymic Other Observations: RISK ASSESSMENT: Risk: Sahil states he sometimes thinks 'what's the point of all this, why am I even here?' and has been thinking this more frequently recently. Today, he again reiterated he does not intend to act on his plan of riding his motorcycle off a ban. He has engaged in no preparation. He is still planning for the future, attending appointments, planning to take his son to and from work. He has not given away possessions nor said goodbyes. He notes no other changes to his behavior. He is still attending to his hygeine, medical issues, and well- being as well as he is able, and is still taking and filling medications and using medications as prescribed. Risk remains intermediate. has a copy of his safety plan, updated yesterday. His chronic health conditions, trauma related symptoms, and hopelessness/helplessness increase chronic risk to moderate/intermediate risk. Nat does not use intoxicating substances which [...] LP [facility] Coordinator and Staff Psychologist Signed: 06/15/2025 16:12 06/15/2025 ADDENDUM STATUS: COMPLETED Please RTC /carmen Perla PhD, LP [facility] Coordinator and Staff Psychologist Signed: 06/15/2025 16:13 Receipt Acknowledged By: * AWAITING SIGNATURE * DANIEL RSEENDEZ,EMELY SQUIRES
--- OUTSIDE RECORDS SUMMARY | 2025-06-14 10:00 | XMS_ITS | Encounter Summary ---
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 Name Role Phone CHRISTI ARIAS Primary [...] Relationship to Policy [facility] ([facility]) MEDICARE ADVANTAGE [facility] ([facility]) Nov 17, 2017 NONE [id number] DARRELL HUTCHINS PATIENT [facility] ([facility]) MEDICARE ADVANTAGE [facility] ([facility]) Nov 17, 2017 [id number] DARRELL HUTCHINS PATIENT MEDICAID MEDICAID [facility] Jan 15, 2017 MEDICAI D [id number] DARRELL HUTCHINS PATIENT Selected Encounter This section includes the information on record at [place] for the Encounter. Date/Time Encounter Type Encounter Description Reason Provider Source Jun 14, 2025 02:00 PM OFFICE O/P EST MOD 30 MIN [facility] - IND ICD-10-CM F32.9 Major depressive disorder, single episode, unspecified EUGENE WORKMAN G IHJohanna Encounter Template Text not used by [place] Assessments - Encounter Diagnoses This section includes the primary and secondary diagnoses documented for the Encounter. Date/Time Primary/Secondary Diagnosis Diagnosis Name Provider Source Jun 15, 2025 06:23 PM PRIMARY Major depressive disorder, single episode, unspecified [place] WORKMANHEN Nima [facility] Plan of Treatment: Future Appointments (+ 6 months) and Future Tests (+/- 45 days) The Plan of Treatment section includes future care activities for the patient from all [place] [facility]. This section includes future appointments and future orders which are active, pending or scheduled. Future Appointments This section includes appointments that were scheduled to occur 6 months from the date of the Encounter, up to a maximum of 20 appointments. The data comes from all [place] treatment [facility]. Appointment Date/Time Appointment Type Appointme nt Facility Name Jul 12, 2025 01:00 PM AMBULATORY - PSYCHIATRY [facility] Jul 22, 2025 01:00 PM AMBULATORY - MEDICINE [facility] Jul 29, 2025 01:30 PM AMBULATORY - PSYCHIATRY [facility] Aug 23, 2025 02:00 PM AMBULATORY - PSYCHIATRY [facility] Sep 26, 2025 01:00 PM AMBULATORY - MEDICINE [facility] Oct 10, 2025 01:30 PM AMBULATORY - MEDICINE [facility] Active, Pending, and Scheduled Orders This section includes a listing of several types of active, pending, and scheduled orders, including clinic medications orders, diagnostic test orders, procedure orders and consult orders; where the start date of the order is 45 days before the date of the Encounter or 45 days after the date of theEncounter. The data comes from all [facility]. Test Date/Time Test Type Test Details Facility Name Jun 10, 2025 02:44 PM Consult Order [facility]ASCULAR SURGERY Cons Resource Management Planner's Choice [facility] Lab Results: +/- 30 days of the encounter This section includes the Chemistry and Hematology Lab Results on record with [place] for the patient. Radiology Reports and Pathology Reports are provided separately, in subsequent sections. Lab Results This section contains the Chemistry/Hematology Results that were resulted 30 days before or 30 daysafter the date of the Encounter. Date/Time Source Result Type Result - Unit Interpretation Reference Range Specimen Type Comment Jun 06, 2025 02:47 PM [place] [facility] BASIC METABOLIC PANEL (non-fasting) SERUM Spe cimen Type: SERUM No comment entered. Ordering Provider: LAMBERTO MIKE Report Released Date/Time: Jun 06, 2025 02:37 PM Reporting Lab: [facility] [address] [facility] [address] Performing Lab: [address] [address] UREA NITROGEN 21 mg/dL 8-26 GLUCOSE 143 mg/dL H 65-100 SODIUM 136 mmol/L 136-145 POTASSIUM 3.8 mmol/L 3.5-5.1 CHLORIDE 106 mmol/L 98-107 CO2 23 meq/L 23-31 CALCIUM 8.5 mg/dL L 8.8-10 CREATININE, Serum 0.69 mg/dL L 0.72-1.25 eGFR(CKD-EPI 2020) >90 mL/min >60 Jun 06, 2025 02:47 PM [facility] HEMOGLOBIN A1C PANEL BLOOD Specimen Type: [...] Jun 06, 2025 02:37 PM Reporting Lab: [address] [address] Performing Lab: [address] [address] HEMOGLOBIN A1C 7.7 H 4.0-5.6 Jun 06, 2025 02:47 PM [facility] CBC BLOOD Specimen Type: BLOOD No comment entered. Ordering Provider: LAMBERTO MIKE Report Released Date/Time: Jun 06, 2025 02:37 PM Reporting Lab: [address] [address] Performing Lab: [address] [place] [address] WBC 8.08 10*3/uL 4.50-11.00 RBC 4.38 10*6/uL [...] 2021 11:30 AM VA-TOBACCO USER EVERY DAY [facility] Tobacco Use History This section includes a history of the smoking, or tobacco-related health factors, that were collected on or before the date of the Encounter. The data comes from the [place] facility where the Encounter took place. 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 Aug 24, 2021 11:30 AM VA-TOBACCO USER EVERY DAY [facility] May 11, 2020 09:35 AM VA-TOBACCO DOESNT USE WI 30 MIN 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 Date/Time Encounter Note(s) Provider Source Jun 15, 2025 01:40 AM SUICIDE PREVENTION RISK ASSESSMENT SCREENING NOTE: LOCAL TITLE: SUICIDE RISK EVALUATION - COMPREHENSIVE STANDARD TITLE: SUICIDE PREVENTION RISK ASSESSMENT SCREENING NOT DATE OF NOTE: JUN 15, 2025@01:40 ENTRY DATE: JUN 15, 2025@01:40:54 AUTHOR: DENISSE WORKMANIGNER: URGENCY: STATUS: COMPLETED Comprehensive Suicide Risk Evaluation --- This is a new suicide risk evaluation. Suicidal Ideation The most recent thoughts of engaging in suicide-related behavior were within the past 30 days. thoughts about crashing motorcycle - but does not have access to working motorcycle -- last thoughts about 1 wk ago The did not have suicidal intent at the time of the most recent ideation. The Chataignier had a suicide plan at the time of the most recent ideation. Describe: see above The most recent suicidal ideation was the most severe ideation within the last 30 days. The Chataignier does not have access to lethal means (firearms) The does not have access to other lethal means. Suicide Behavior The Chataignier did not report any prior suicide attempts that have not been previously documented. The Chataignier did not report any prior preparatory behaviors that have not been previously documented. Warning Signs The following warning signs are currently present for the Chataignier: see chart Risk Factors Recent psychosocial stressors Psychological conditions or symptoms Medical conditions and health-related problems Protective Factors and Reasons for Living ------- Access to and engagement with health care Reports motivation for medical treatment Access to and engagement with mental health care Reports motivation for mental health treatment Has meaningful family relationships Comment: adult son needs his assistance Protective personal traits or beliefs Clinical Impressions: The clinical impression of acute risk is Low ACUTE Risk. As evidenced by: denies current SI/plan/intent The clinical impression of chronic risk is Intermediate CHRONIC Risk. As evidenced by: due to chronic risk factors and due to recent h/o SI with plan (w/o intent) Suicide Risk Mitigation Plan: This treatment and care plan was developed in collaboration with the . Risk Mitigation Plan: Strategies for Managing Risk in OUTPATIENT setting Suicide Advice Nurse alerted for consideration of a Patient Record Flag Category I High Risk for Suicide. Increase frequency of outpatient contact, including home visits for home-based care Increase frequency of suicide risk and symptom monitoring Address psychosocial needs (sees clinic sw) Provide with phone number for 's Crisis Line: Dial 988 (Press 1), Text to [phone], or Chat Re-evaluation: Due to the dynamic nature of some warning signs, risk and protective factors, suicide risk should be routinely re-evaluated. These risk management strategies were chosen to address Chataignier's current presentation and feasible treatment options within the system of care. This plan should be re-evaluated over time. /caio/ DENISSE WORKMAN MD STAFF PSYCHIATRIST Signed: 06/15/2025 18:39 Receipt Acknowledged By: 06/16/2025 08:40 /es/ [facility] Suicide Advice Nurse 06/16/2025 09:52 /es/ Betty Perla PhD LP [facility] Coordinator and Staff Psychologist DENISSE WORKMAN Jun 14, 2025 02:14 PM PSYCHIATRY NOTE: LOCAL TITLE: PSYCHIATRY NOTE STANDARD TITLE: PSYCHIATRY NOTE DATE OF NOTE: JUN 14, 2025@14:14 ENTRY DATE: JUN 14, 2025@14:15:04 AUTHOR: DENISSE WORKMAN EXP COSIGNER: URGENCY: STATUS: COMPLETED PSYCHIATRY NOTE Has ADDENDA 35 min for encounter, including chart review, interview, charting chart reviewed Patient presents as stable today, despite the frustration of several medical problems/chronic pain and with his feelings about slow progress of VA benefits claim. Overall, depression remains improved since change to cymbalta, but sx's can fluctuate with stress level. Also PTSD symptoms/irritability again fluctuate with stress (although reports irritability better). Affect mostly bright, appropriate. Not irritable today. The patient denies current SI/plan/intent, but has past h/o SI with plan (see Dr Perla note), but w/o intent. Note that safety plan updated yesterday when pt saw Christina, see chart. Thoughts are well organized. No paranoid or delusional content presented. Denies hallucinations. Speech normal. Cognitive exam grossly unchanged. Again, has interests, for example reading, he again becomes animated as he discusses his reading (novels, news). As with each interview, the patient clearly enjoys talking, telling stories. He again has good sense of humor. Again, reasonable hygiene. Insomnia fluctuates Pt reports ongoing PTSD sx's - again, see my 03/08/25 note for more hx of sx's We reviewed the current psychiatric medication and the patient has at least partial benefit from current regimen (cymbalta/remeron) for depression and possibly for ptsd sx's. We discussed considering dose increase of cymbalta, but did not make decision in time allowed today - we agreed I will call pt for further discussion Denies psych med side effects. Denies daytime sedation. Reports med compliance h/o heavy alcohol -- stopped over 5 yrs ago, except reports very occasional drink; denies recent cannabis; denies street drugs As noted in previous notes, pt ; Pt is close to his son, who lives w him. 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 CAD - Coronary Artery Disease ([facility] [id number]) 2. Paresthesia of hand 3. Pulmonary emphysema 4. Cellulitis and abscess of lower leg 5. Heart murmur 6. Cardiac arrhythmia 7. Actinic keratosis 8. Headache 9. Insomnia 10. Unsteady gait 11. Vitamin D Deficiency ([facility] [id number]) 12. Vitamin B12 Deficiency ([facility] [id number]) 13. Diarrhea 14. CAD - Coronary Artery Disease ([facility] [id number]) 15. Pain of left knee joint 16. Tobacco user 17. Peripheral venous insufficiency 18. Onychomycosis 19. History of cholecystectomy 20. Chronic back pain 21. Neck pain 22. Co-Management 23. Depression ([facility] [id number]) 24. 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 See C-SSRS below. The patient denies current SI/plan/intent (but has past history of intermittent suicidal ideation, sometimes with plan (see Dr Perla note), but w/o intent). The pt is firm that he would not act on suicidal ideation for several reasons, including that his son needs him. Pt denies violent ideation. The pt is probably at low acute risk for suicide (but chronic risk may be intermediate, based on chronic risk factors), and the [employer] Crisis Line information and number were reviewed w patient as a precaution. The patient also understands to call 911 or to go to ER in the event of an emergency. And pt has safety plan (updated yesterday by Christina as a precaution), patient has copy and this reviewed with patient again today. Patient again wears a wristband with the crisis number. Again, note that the patient is active daily with some of the internal coping strategies on safety plan as part of his usual routine. Welfare of his son is a significant protective factor. Dr Perla and I have carefully reviewed this case for the past 2 days, and we agree patient not committable. Note that I offered the patient psychiatric hospitalization for medication adjustment, patient declines this. He reports obligations at home which are important, in particular with his son. Pt is not committable. continue psychotherapy w Dr Perla, and supportive sessions w Camila Again, see 05/09/24 primary care addendum to my 03/17/24 no-show note, also see my subsequent addenda to the same note. Primary care had recommended considering discontinuing Zoloft and mirtazapine due to the patient's prolonged QTC. I again discussed with the patient about this issue. Over time we have changed Zoloft to Cymbalta. We also discussed considering tapering Remeron, depending upon how patient does with Cymbalta trial. But no change in Remeron today because pt benefiting, and he does not want med change. Also see below for more discussion. Benefits outweigh risks. CONTINUE CYMBALTA 60 MG DAILY for depression, significant improvement -we did not make final decision re dose increase to further improve depression - I will call pt re this. Note that patient appears to have better response to Cymbalta than the previous Zoloft. Pt previously requested increase in cymbalta to 60 day supply to decrease risk of missing medication if mail is slow and to avoid [...] keep medication the same because he is benefitting; benefits outweigh risks CONTINUE TOPAMAX 25 MG [...] benefits outweigh risks, which is reasonable. note pt previously reported has meals on wheels Spoke previously with Audrey MCKOY [phone] -- although pt now declines VN - does not feel he needs Due to the complexity of this case, I reviewed with Dr Camacho and he agrees with the assessment and plan above. He agrees patient not committable. Medication Reconciliation: Outpatient: Has the patient been taking medications as documented in the EMLR? YES: The patient has been taking medications as documented in the EMLR. Essential Medication List for Review used to complete this medication reconciliation. Suicide Screen: C-SSRS Screening [place]-Suicide Severity Rating Scale (C-SSRS Screener) Specific method of suicide recently considered; this POSITIVE answer requires same-day completion of a Suicide Risk Evaluation-Comprehensive 1. Over the past month, have you wished you were or wished you could go to sleep and not wake up? Yes 2. Over the past month, have you had any actual thoughts of killing yourself? Yes 3. Over the past month, have you been thinking about how you might do this? Yes 4. Over the past month, have you had these thoughts and had some intention of acting on them? No 5. Over the past month, have you started to work out or worked out the details of how to kill yourself? No 6. If yes, at any time in [...] /caio/ DENISSE WORKMAN MD STAFF PSYCHIATRIST Signed: 06/15/2025 18:23 06/15/2025 ADDENDUM STATUS: COMPLETED Note that today I reviewed w Dr. Camacho again about psychopharm strategies for patient for depression, including considering increasing Cymbalta, versus increasing Remeron, versus augmentation strategy with low-dose atypical antipsychotic such as Abilify. Dr. Camacho feels it is reasonable to increase pts Cymbalta to 90 mg daily, as patient is tolerating current dose well and is at least partially improved. Increasing Cymbalta may have a lower side effect profile overall than adding Abilify at this time. Benefits outweigh risks. Although we could consider Abilify in the future or similar agent if pt does not improve. I called the patient to review medications, as I had discussed with him yesterday. He sounds good this evening. He likes the idea of increasing Cymbalta to 90 mg daily (for now we will prescribe as a 30-day supply, with refills). I reviewed the side effect profile with him and asked him to call if he has any side effects. No change in other psychiatric medication for now. /caio/ DENISSE WORKMAN MD STAFF PSYCHIATRIST Signed: 06/15/2025 18:31 07/07/2025 ADDENDUM STATUS: COMPLETED Note that I have asked Christina to call over past 2 weeks to check in with pt (she left s for pt), and when pt cancelled today , I left 2 messages for pt to call me in clinic Patient has a long pattern of not answering his phone or responding to his voicemails. But he does generally come to clinic for appointments, and he has an upcoming appointment with Dr. Perla for 07/12 I reviewed with the AMSA whom pt called to cancel -- he stated to her that he plans to keep the 07/[address] Perla /caio/ DENISSE WORKMAN MD STAFF PSYCHIATRIST Signed: 07/07/2025 18:42 DENISSE WORKMAN
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
--- OUTSIDE RECORDS SUMMARY | 2025-07-13 08:05 | XMS_ITS | Continuity of Care Document ---
Author Name [facility] Organization [facility] Care Team Providers Care Mechanical Service Technician Name Role Phone [facility] Unavailable Unavailable Problems Combined list of problems from Department of Defense and Veterans Affairs facilities. It does not include entries that were removed or entered in error. Problem Status Onset Date Problem Type Date of Resolution Comments Source Actinic keratosis Active Condition [facility] CAD - Coronary Artery Disease ([facility] [id number]) Active Condition Aug 29, 2023 Entered By: HCRISTI VALERIO Comment: Evident on LDCT [place] CAD - Coronary Artery Disease ([facility] [id number]) Active Condition March 20, 2025 Entered By: CHRISTI VALERIO Comment: 12/2024 Left cardiac cath nonobstructive CAD [place] Cardiac arrhythmia Active Condition [facility] Cellulitis and abscess of lower leg Active Condition [place] Chronic back pain Active Condition 2022 Entered By: CHRISTI VALERIO Comment: h/o multiple surgeries [place] Co-Management Active Condition May Entered By: CHRIS ROBERTO Comment: Dr. Wiggins [place] [facility] [facility] Depression ([facility] [id number]) Active Condition Nov 03, 2020 Entered By: DENISSE WORKMAN Comment: reviewedNov 27, 2021 Entered By: DENISSE WORKMAN Comment: reviewed [place] Diarrhea Active Condition [place] Essential hypertension [facility] Headache Active Condition [place] Heart murmur [facility] History of cholecystectomy Active Condition Dec 21, 2022 Entered By: CHRISTI VALERIO Comment: laparoscopic 2011 [place] Hyperglycemia due to type 2 diabetes mellitus Active Condition May 30, 2020 Entered By: CHRIS ROBERTO Comment: Oct 2019 A1c 7.7Aug 2019 Entered By: CHRIS ROBERTO Comment: 2020 A1c Chio 9.1 [facility] [place] [facility] Hyperlipidemia [facility] [place] [facility] Insomnia Active Condition [place] Neck pain Active Condition Dec 21 Entered By: CHRISTI VALERIO Comment: s/p surgery 11/2015 [place] Neuropathy due to type 2 diabetes mellitus Active Condition [facility] [place] [facility] Onychomycosis Active Condition [facility] Pain of left knee joint Active Condition [place] Paresthesia of hand Active Condition March 20, 2025 Entered By: CHRISTI VALERIO Comment: Right hand [place] Peripheral venous insufficiency Active Condition [place] Posttraumatic stress disorder Active Condition May 24, 2019 Entered By: [facility]ISSE [facility] Entered By: DENISSE WORKMAN Comment: reviewedNov 27, 2021 Entered By: DENISSE WORKMAN Comment: reviewed [facility] [place] [facility] Pulmonary emphysema Active Condition Feb 09, 2025 Entered By: CHRISTI VALERIO Comment: LDCT 2024 Mild scattered bullous emphysematous changes [place] Tobacco user Active [facility] Unsteady gait Active Condition [facility] Vitamin B12 Deficiency (SCT [id number]) Active Condition [place] Vitamin D Deficiency ([facility] [id number]) Active Condition [place] Diagnosis: ICD-10-CM F32.9 Major depressive disorder, single episode, unspecified Active Diagnosis [place] Diagnosis: ICD-10-CM F33.9 Major depressive disorder, recurrent, unspecified Active Diagnosis [place] Diagnosis: ICD-10-CM F43.10 Post-traumatic stress disorder, unspecified Active Diagnosis [place] Diagnosis: ICD-10-CM E11.65 Type 2 diabetes mellitus with hyperglycemia Active Diagnosis [place] Diagnosis: ICD-10-CM L60.3 Nail dystrophy [facility] Diagnosis: ICD-10-CM S81.802D Unspecified open wound, left lower leg, subsequent encounter Active Diagnosis [place] Diagnosis: ICD-10-CM L03.116 Cellulitis of left lower limb Active Diagnosis [place] Diagnosis: ICD-10-CM R26.89 Other abnormalities of gait and mobility Active Diagnosis [facility] Diagnosis: ICD-10-CM I10 Essential (primary) hypertension Active Diagnosis [place] Diagnosis: ICD-10-CM Z71.89 Other specified counseling Active Diagnosis [place] Diagnosis: ICD-10-CM F33.1 Major depressive disorder, recurrent, moderate Active Diagnosis [place] Diagnosis: ICD-10-CM E11.8 Type 2 diabetes mellitus with unspecified complications Active Diagnosis [place] Diagnosis: ICD-10-CM Z12.2 Encntr screen for malignant neoplasm of respiratory organs [facility] [place] Diagnosis: ICD-10-CM E11.9 Type 2 diabetes mellitus without complications Active Diagnosis [facility] [place] [facility] Diagnosis: ICD-10-CM L57.0 Actinic keratosis Active Diagnosis [facility] [place] [facility] Diagnosis: ICD-10-CM E11.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 mellitus with diabetic neuropathy, unsp Active Diagnosis [facility] ([id number]) Diagnosis: ICD-10-CM Z23 Encounter for immunization Active Diagnosis [place] Diagnosis: ICD-10-CM F32.A Depression, unspecified Active Diagnosis [place] Diagnosis: ICD-10-CM Z04.89 Encounter for examination and observation for oth reasons Active Diagnosis [facility] Diagnosis: ICD-10-CM Z13.6 Encounter for screening for cardiovascular disorders Active Diagnosis [facility] Diagnosis: ICD-10-CM I49.9 Cardiac arrhythmia, unspecified [facility] [place] [facility] Diagnosis: ICD-10-CM R01.1 Cardiac murmur, unspecified Active [facility] [place] Diagnosis: ICD-10-CM Z46.0 Encounter for fit/adjst of spectacles and contact lenses Active Diagnosis [place] [facility] [place] [facility] Medications Combined list of outpatient medications from [...] IRRITATE D SKIN TOPICA L ACTIVE 03/19/2026 [id number] CHRISTI AGUILA 2024 240 [place] AMMONIUM LACTATE 12% LOTION APPLY SMALL AMOUNT TOPICALL Y ONCE DAILY FOR DRY SKIN FOR DRY IRRITATE D SKIN TOPICA L DISCONT INUED 06/10/2025 [id number] TREVIN COFFEY 2023 240 [place] ASPIRIN 81MG TAB,EC TAKE ONE TABLET BY MOUTH EVERY DAY ORAL ACTIVE FLORENCIO JACK 2016 [facility] ATORVASTATI N CA 80MG TAB TAKE ONE-HALF TABLET BY MOUTH ONCE DAILY FOR HIGH CHOLESTE ROL ORAL ACTIVE 03/19/2026 [id number] CHRISTI AGUILA 2024 45 [place] ATORVASTATI N CA 80MG TAB TAKE ONE-HALF TABLET BY MOUTH ONCE DAILY FOR HIGH CHOLESTE ROL ORAL DISCONT INUED 09/11/2025 [id number] CHRISTI AGUILA 2023 45 [place] CARBOXYMETH YLCELLULOSE NA 0.5% SOLN,OPH INSTILL 1 DROP INTO EACH EYE THREE TIMES DAILY NEEDED FOR DRY EYE OPHTHA LMIC ACTIVE 04/06/2026 [id number] CHRISTI AGUILA 2024 15 [place] CEFADROXIL 500MG CAP TAKE ONE CAPSULE BY MOUTH TWICE DAILY FOR SKIN INFECTIO N ORAL 05/12/2025 [id number] CHRISTI AGUILA M 2024 14 [place] CEFADROXIL 500MG CAP TAKE ONE CAPSULE BY MOUTH TWICE DAILY FOR SKIN INFECTIO N ORAL 01/20/2025 [id number] LIBAN ROBBINS 2024 14 [facility] [place] [facility] CYANOCOBALA MIN TAB TAKE BY MOUTH ORAL ACTIVE Hafsa WORKMAN 2018 [place] DOXYCYCLINE HYCLATE 100MG TAB TAKE ONE TABLET BY MOUTH TWICE DAILY ORAL 06/05/2024 [id number] KIKE CASTAÑEDACHRISTI Tracy 2023 20 [place] DULOXETINE HCL 20MG CAP,EC TAKE TWO CAPSULES BY MOUTH ONCE DAILY DEPRESSI ON ORAL DISCONT INUED (EDIT) 06/26/2025 [id number] Hafsa WORKMAN 2023 60 [place] DULOXETINE HCL 20MG CAP,EC TAKE ONE CAPSULE BY MOUTH ONCE DAILY FOR 7 DAYS, THEN TAKE TWO CAPSULES ONCE DAILY ORAL DISCONT INUED (EDIT) 06/27/2024 [id number] 4 Hafsa WORKMAN 2023 53 [place] DULOXETINE HCL 30MG CAP,EC TAKE THREE CAPSULES BY MOUTH ONCE DAILY DEPRESSI ON REPLACES PREVIOUS DULOXETI NE PRESCRIP TION ORAL ACTIVE 06/16/2026 [id number] 5 Hafsa WORKMAN 2024 270 [place] DULOXETINE HCL 60MG CAP,EC TAKE ONE CAPSULE BY MOUTH ONCE DAILY DEPRESSI ON ORAL DISCONT INUED (EDIT) 01/26/2026 [id number] 5 Hafsa WORKMAN 2024 60 [place] DULOXETINE HCL 60MG CAP,EC TAKE ONE CAPSULE BY MOUTH ONCE DAILY DEPRESSI ON ORAL DISCONT INUED (EDIT) 10/07/2025 [id number] 5 Hafsa WORKMAN 2023 30 [place] DULOXETINE HCL 60MG CAP,EC TAKE ONE CAPSULE BY MOUTH ONCE DAILY DEPRESSI ON ORAL DISCONT INUED 07/28/2025 [id number] Hafsa WORKMAN 2023 30 [place] GABAPENTIN 300MG CAP TAKE 1 CAPSULE BY MOUTH THREE TIMES A DAY ORAL ACTIVE FLORENCIO JACK 2016 [place] [facility] [place] [facility] GLUCAGON 3MG INHL,NASAL, 1 PK SPRAY 1 INHALATI ON ONE NOSTRIL ONE TIME NEEDED FOR LOW BLOOD SUGAR NASAL 04/20/2025 [id number] 5 Remedios MIKE 2024 1 [place] GLUCOSE 4GM TAB,CHEW CHEW THREE TO FOUR TABLETS BY MOUTH NEEDED TO TREAT LOW BLOOD SUGAR BELOW 70 ORAL HOLD 03/19/2026 [id number] 5 Remedios MIKE 2024 40 [place] GLUCOSE 4GM TAB,CHEW CHEW THREE TO FOUR TABLETS BY MOUTH NEEDED TO TREAT LOW BLOOD SUGAR BELOW 70 ORAL DISCONT INUED 07/31/2025 [id number] 5 Remedios MIKE 2023 20 [place] GLUCOSE 4GM TAB,CHEW CHEW THREE TO FOUR TABLET(S ) BY MOUTH NEEDED TO TREAT LOW BLOOD SUGAR LESS THAN 70 ORAL DISCONT INUED 05/07/2025 [id number] 4 Remedios MIKE 2023 20 [place] INSULIN,ASP ART,HUMAN (EQV-NOVOLO G) 100 UNIT/ML,FLE XPEN,3ML INJECT 20 UNITS SUBCUTAN EOUSLY TWICE DAILY FOR DIABETES INJECT 15 MINUTES BEFORE MEALS SUBCUT ANEOUS ACTIVE 12/18/2025 [id number] 5 Remedios MIKE 2024 15 [place] INSULIN,ASP ART,HUMAN (EQV-NOVOLO G) 100 UNIT/ML,FLE XPEN,3ML INJECT 14 UNITS SUBCUTAN EOUSLY TWICE DAILY 15 MINUTES BEFORE MEALS SUBCUT ANEOUS DISCONT INUED BY PROVIDE R 10/07/2025 [id number] 4 Remedios MIEK 2023 10 [place] INSULIN,ASP ART,HUMAN (EQV-NOVOLO G) 100 UNIT/ML,FLE XPEN,3ML INJECT 14 UNITS SUBCUTAN EOUSLY TWICE DAILY 15 MINUTES BEFORE MEALS SUBCUT ANEOUS DISCONT INUED 10/07/2024 [id number] 4 Remedios MIKE 2022 10 [place] INSULIN,GLA RGINE,HUMAN 100 UNIT/ML INJ,SOLOSTA R,3ML INJECT 30 UNITS SUBCUTAN EOUSLY TWICE DAILY SUBCUT ANEOUS ACTIVE 12/18/2025 [id number] 5 Remedios MIKE 2024 20 [place] INSULIN,GLA RGINE-YFGN 100UNIT/ML INJ PEN,3ML INJECT 22 UNITS SUBCUTAN EOUSLY TWICE DAILY FOR DIABETES SUBCUT ANEOUS DISCONT INUED BY PROVIDE R 10/07/2025 [id number] Remedios MIKE 2023 10 [place] INSULIN,GLA RGINE-YFGN 100UNIT/ML INJ PEN,3ML INJECT 22 UNITS SUBCUTAN EOUSLY TWICE DAILY FOR DIABETES SUBCUT ANEOUS DISCONT INUED 12/03/2024 [id number] 4 Remedios MIKE 2023 10 [place] LOPERAMIDE HCL 2MG CAP TAKE ONE CAPSULE BY MOUTH THREE TIMES DAILY WITH MEALS FOR DIARRHEA ORAL ACTIVE 09/11/2025 [id number] CHRISTI AGUILA 2023 90 [place] MAGNESIUM OXIDE 420MG TAB TAKE ONE TABLET BY MOUTH ONCE DAILY FOR MAGNESIU M SUPPLEME NTATION ORAL ACTIVE 01/18/2026 [id number] 5 Tyler HOLT 2024 100 [place] MAGNESIUM OXIDE 420MG TAB TAKE ONE TABLET BY MOUTH ONCE DAILY FOR MAGNESIU M SUPPLEME NTATION ORAL DISCONT INUED BY PROVIDE R 09/06/2025 [id number] CHRISTI AGUILA 2023 100 [place] MELATONIN 1MG CAP/TAB TAKE SIX CAPSULE/ TABLET BY MOUTH AT BEDTIME NEEDED INSOMNIA ORAL DISCONT INUED (EDIT) 10/07/2025 [id number] 5 Hafsa WORKMAN 2023 180 [place] MELATONIN 1MG CAP/TAB TAKE SIX CAPSULE/ TABLET BY MOUTH AT BEDTIME NEEDED INSOMNIA ORAL DISCONT INUED 06/26/2025 [id number] Hafsa WORKMAN 2023 180 [place] MELATONIN 1MG CAP/TAB TAKE FOUR CAPSULE/ TABLETS BY MOUTH AT BEDTIME NEEDED INSOMNIA ORAL DISCONT INUED (EDIT) 12/17/2024 [id number] Hafsa WORKMAN 2023 180 [place] MELATONIN 3MG CAP/TAB TAKE THREE CAPSULE/ TABLET BY MOUTH AT BEDTIME NEEDED INSOMNIA ORAL ACTIVE 03/10/2026 [id number] 5 Hafsa WORKMAN 2024 180 [place] METFORMIN HCL 1000MG TAB TAKE ONE TABLET BY MOUTH TWICE DAILY ORAL ACTIVE FLORENCIO JACK 2016 [facility] [place] [facility] METOPROLOL TARTRATE 25MG TAB TAKE ONE TABLET BY MOUTH EVERY DAY ORAL ACTIVE SUSHANTFLORENCIO HIGHTOWER 2016 [facility] [place] [facility] MIRTAZAPINE 30MG TAB TAKE ONE TABLET BY MOUTH AT BEDTIME FOR DEPRESSI ON/MOOD ORAL ACTIVE 01/26/2026 [id number] 5 Hafsa WORKMAN 2024 30 [place] MIRTAZAPINE 30MG TAB TAKE ONE TABLET BY MOUTH AT BEDTIME FOR DEPRESSI ON/MOOD ORAL DISCONT INUED 09/09/2025 [id number] 5 Hafsa WORKMAN 2023 30 [place] MIRTAZAPINE 30MG TAB TAKE ONE TABLET BY MOUTH AT BEDTIME FOR DEPRESSI ON/MOOD ORAL DISCONT INUED 09/17/2024 [id number] Hafsa WORKMAN 2022 30 [place] MUPIROCIN 2% OINT,TOP APPLY THIN LAYER TOPICALL Y EVERY OTHER DAYS TOPICA L 06/10/2025 [id number] TREVIN COFFEY 2023 44 [place] NICOTINE 14MG/24HRS PATCH APPLY 1 PATCH TOPICALL Y ONCE DAILY (REMOVE OLD PATCH BEFORE APPLYING NEW PATCH) TOPICA L 12/26/2024 [id number] MATT,ANUS NAIK GANAPATI 2024 14 [place] NICOTINE POLACRILEX 2MG TAB,CHEWG GUM CHEW 1 PIECE BY MOUTH EVERY 2 HOURS NEEDED FOR SMOKING CESSATIO N ORAL 12/26/2024 [id number] 5 MATT,ANUS NAIK GANAPATI 2024 110 [place] POTASSIUM CHLORIDE 20MEQ TAB,SA (DISPERSIBL E) TAKE ONE TABLET BY MOUTH ONCE DAILY FOR LOW POTEVINIU M ORAL 11/27/2024 [id number] VIVIANASUNITABeba CHRISTI CASTAÑEDA 2023 4 [place] SEMAGLUTIDE 0.25MG/0.37 5ML INJ,SOLN,PE N,3ML INJECT 0.5MG SUBCUTAN EOUSLY ONCE A WEEK FOR TYPE 2 DIABETES MELLITUS SUBCUT ANEOUS ACTIVE 02/18/2026 [id number] 5 Remedios MIKE 2024 3 [place] SEMAGLUTIDE 0.25MG/0.37 5ML INJ,SOLN,PE N,3ML INJECT 0.5MG SUBCUTAN EOUSLY ONCE A WEEK FOR TYPE 2 DIABETES MELLITUS SUBCUT ANEOUS DISCONT INUED BY PROVIDE R 10/29/2025 [id number] 5 KIKE TRACYWESLEY NICKIEMOUNIKAJUAN C 2023 1 [place] SEMAGLUTIDE 0.25MG/0.37 5ML INJ,SOLN,PE N,3ML INJECT 0.5MG SUBCUTAN EOUSLY ONCE A WEEK FOR TYPE 2 DIABETES MELLITUS SUBCUT ANEOUS DISCONT INUED 10/07/2025 [id number] 4 Remedios MIKE 2023 1 [place] SEMAGLUTIDE 0.25MG/0.37 5ML INJ,SOLN,PE N,3ML INJECT 0.5MG SUBCUTAN EOUSLY ONCE A WEEK FOR TYPE 2 DIABETES MELLITUS SUBCUT ANEOUS DISCONT INUED 10/10/2024 [id number] Remedios MIKE 2023 1 [place] SEMAGLUTIDE 1MG/0.75ML INJ,SOLN,PE N,3ML INJECT 1MG SUBCUTAN EOUSLY ONCE A WEEK FOR TYPE 2 DIABETES MELLITUS SUBCUT ANEOUS DISCONT INUED BY PROVIDE R 04/03/2025 [id number] Remedios MIKE 2023 1 [place] SEMAGLUTIDE 2MG/0.75ML INJ,SOLN,PE N,3ML INJECT 2MG SUBCUTAN EOUSLY ONCE A WEEK SUBCUT ANEOUS DISCONT INUED BY PROVIDE R 07/31/2025 [id number] Remedios MIKE 2023 1 [place] SERTRALINE HCL 100MG TAB TAKE ONE TABLET BY MOUTH AT BEDTIME FOR 14 DAYS, THEN TAKE ONE-HALF TABLET AT BEDTIME FOR 14 DAYS FOR MAJOR DEPRESSI VE DISORDER -FOR PTSD, MOOD ORAL DISCONT INUED BY PROVIDE R 06/27/2024 [id number] Hafsa WORKMAN 2023 21 [place] SERTRALINE HCL 100MG TAB TAKE ONE AND ONE-HALF TABLETS BY MOUTH AT BEDTIME -FOR PTSD, MOOD ORAL DISCONT INUED (EDIT) 09/17/2024 [id number] Hafsa WORKMAN 2022 45 [place] TOPIRAMATE 25MG TAB TAKE ONE TABLET BY MOUTH TWICE DAILY NEEDED FOR ANXIETY/ HEADACHE (OFF LABEL FOR ANXIETY) ORAL ACTIVE 01/26/2026 [id number] 5 Hafsa WORKMAN 2024 60 [place] TOPIRAMATE 25MG TAB TAKE ONE TABLET BY MOUTH TWICE DAILY NEEDED FOR ANXIETY/ HEADACHE (OFF LABEL FOR ANXIETY) ORAL DISCONT INUED 06/26/2025 [id number] 5 Hafsa WORKMAN 2023 60 [place] TOPIRAMATE 25MG TAB TAKE ONE TABLET BY MOUTH TWICE DAILY NEEDED FOR ANXIETY/ HEADACHE (OFF LABEL FOR ANXIETY) ORAL DISCONT INUED 12/17/2024 [id number] Hafsa WORKMAN 2023 60 [place] UREA 10% LOTION APPLY MODERATE AMOUNT TOPICALL Y TWICE DAILY FOR DRY SKIN *FOR EXTERNAL USE ONLY* TOPICA L ACTIVE 03/19/2026 [id number] CHRISTI AGUILA 2024 240 [place] UREA 10% LOTION APPLY MODERATE AMOUNT TOPICALL Y TWICE DAILY FOR DRY SKIN *FOR EXTERNAL USE ONLY* TOPICA L DISCONT INUED (EDIT) 12/22/2025 [id number] 5 LIBAN ROBBINS 2024 240 [facility] V[facility] COMPLEX CAP,ORAL TAKE BY MOUTH ORAL ACTIVE Hafsa WORKMAN G 2018 [facility] IELD VITAMIN D3 (CHOLECALCI FEROL) TAB TAKE BY MOUTH ORAL ACTIVE Hafsa WORKMAN G 2018 [facility] [place] Immunizations Combined list of available immunizations from the Department of Defense and [facility] Affairs facilities. Immunization Series Date Given Administered By Site Reaction Lot Number CVX Code Drug Oil Changer Status Comments Source INFLUENZA, HIGH-DOSE, TRIVALENT, PF 2023 NURYS BERNARD RYAN LEFT DELTO ID [id number] 135 complet ed [facility] I[place] COVID-19 (MODERNA), MRNA, LNP-S, PF, 50 MCG/0.5 ML (AGES 12+ YEARS) 2022 PRIYANKA BONILLA LEFT DELTO ID [id number] 312 complet ed Booster for Series, [facility] AT [facility] IELD INFLUENZA, HIGH-DOSE, QUADRIVALENT 2022 PRIYANKA BONILLA R LEFT [place] ID [id number] 197 complet ed [facility] PNEUMOCOCCAL CONJUGATE PCV20, POLYSACCHARID E [id number] CONJUGATE, ADJUVANT, PF 2022 NURYS BERNARD LEFT DELTO ID [id number] 216 complet ed [facility] INFLUENZA, UNSPECIFIED FORMULATION 2021 88 complet ed HISTORICA L INFORMATI ON - SOURCE UNSPECIFI [facility] PNEUMOCOCCAL POLYSACCHARID E PPV23 2021 33 complet ed [facility] IELD COVID-19 (MODERNA), MRNA, LNP-S, PF, 100 MCG OR 50 MCG DOSE 3 2021 207 complet ed MOD; [id number]; 2 [facility] IELD INFLUENZA, UNSPECIFIED FORMULATION [address] [facility] COVID-19 (MODERNA), MRNA, LNP-S, PF, 100 MCG/0.5 ML DOSE 2 2020 207 complet ed MOD; [id number]; 1 [place] COVID-19 (MODERNA), MRNA, LNP-S, PF, 100 MCG/0.5 ML DOSE 1 2020 207 complet ed MOD; [id number]; 1 [place] INFLUENZA, HIGH DOSE SEASONAL 2018 135 complet ed 02, Partner: [facility]. Administe red by: ADILENE SERRANO (WPR=[id number]). Partner 3 Lot#: [id number] Mfr: [employer]; Dosage: 0.5 [facility] [...] Reference Range Date Interpretation Specimen Comments Source BASIC METABOLIC PANEL (non-fast ing) UREA NITROGEN [MASS/VOLUM E] IN SERUM OR PLASMA 21 mg/dL 8 - 26 06/06 Specimen Type: SERUM No comment entered. Ordering Provider: SURINDER MIKE Report Released Date/Time: Jun 06, 2025 02:37 PM Reporting Lab: [facility] [place] [facility] [address] [address] Performing Lab: IN [facility] [place] [facility] [address] [address] IN [facility] [place] [facility] BASIC METABOLIC PANEL (non-fast ing) GLUCOSE [MASS/VOLUM E] IN SERUM OR PLASMA 143 mg/dL 65 - 100 06/06 H Specimen Type: SERUM No comment entered. Ordering Provider: SURINDER MIKE Report Released Date/Time: Jun 06, 2025 02:37 PM Reporting Lab: [facility] [address] [address] Performing Lab: [facility] [place] [facility] [address] [address] [facility] [place] [facility] BASIC METABOLIC PANEL (non-fast ing) SODIUM [MOLES/VOLU ME] IN SERUM OR PLASMA 136 mmol/L 136 - 145 06/06 Specimen Type: SERUM No comment entered. Ordering Provider: SURINDER MIKE Report Released Date/Time: Jun 06, 2025 02:37 PM Reporting Lab: [facility] [address] [address] Performing Lab: [facility] [address] [address] [facility]ITALRB[facility]TRN [facility] BASIC METABOLIC PANEL (non-fast ing) POTASSIUM [MOLES/VOLU ME] IN SERUM OR PLASMA 3.8 mmol/L 3.5 - 5.1 06/06 Specimen Type: SERUM No comment entered. Ordering Provider: SURINDER MIKE Report Released Date/Time: Jun 06, 2025 02:37 PM Reporting Lab: [facility]OUTHTRN [facility] [address] Performing Lab: [facility] [address] [facility]ITALRBAP[facility]OUTHTRN [facility]ITAL[facility] BASIC METABOLIC PANEL (non-fast ing) CHLORIDE [MOLES/VOLU ME] IN SERUM OR PLASMA 106 mmol/L 98 - 107 06/06 Specimen Type: SERUM No comment entered. Ordering Provider: SURINDER MIKE Report Released Date/Time: Jun 06, 2025 02:37 PM Reporting Lab: [facility]ITAL[facility] [address] [address] Performing Lab: [facility] [address] [facility] TRN [facility] BASIC METABOLIC PANEL (non-fast ing) CARBON DIOXIDE, TOTAL [MOLES/VOLU ME] IN SERUM OR PLASMA 23 meq/L 23 - 31 06/06 Specimen Type: SERUM No comment entered. Ordering Provider: SURINDER MIKE Report Released Date/Time: Jun 06, 2025 02:37 PM Reporting Lab: [address] [address] Performing Lab: [address] [address] [facility] BASIC METABOLIC PANEL (non-fast ing) CALCIUM [MASS/VOLUM E] IN SERUM OR PLASMA 8.5 mg/dL 8.8 - 10 06/06 L Specimen Type: SERUM No comment entered. Ordering Provider: SURINDER MIKE Report Released Date/Time: Jun 06, 2025 02:37 PM Reporting Lab: [address] [address] Performing Lab: [address] [address] [facility] BASIC METABOLIC PANEL (non-fast ing) CREATININE [MASS/VOLUM E] IN SERUM OR PLASMA 0.69 mg/dL 0.72 - 1.25 06/06 L Specimen Type: SERUM No comment entered. Ordering Provider: SURINDER MIKE Report Released Date/Time: Jun 06, 2025 02:37 PM Reporting Lab: [address] [address] Performing Lab: [address] [address] [facility] BASIC METABOLIC PANEL (non-fast ing) GLOMERULAR FILTRATION RATE/1.73 SQ M.PREDICTED [VOLUME RATE/AREA] IN SERUM, PLASMA OR BLOOD BY CREATININE- BASED FORMULA (CKD-EPI 2020) >90mL/ min 60 06/06 Specimen Type: SERUM No comment entered. Ordering Provider: SURINDER MIKE Report Released Date/Time: Jun 06, 2025 02:37 PM Reporting Lab: [address] [address] Performing Lab: [facility]N [facility] [address] [address] [facility]N [facility] HEMOGLOBI N A1C PANEL HEMOGLOBIN A1C/HEMOGLO BIN.TOTAL IN BLOOD 7.7 4.0 - 5.6 06/06 H Specimen Type: BLOOD Comment: Values obtained from A1C measurement s can vary. For atypical A1C assays, a reported value of 7.0 could actually be between 6.72 and 7.28 if measured by a reference method. A reported value of 9.0 could actually be between 8.73 and 9.27. Ref: [email or web address]://www. ngsp.org/[place] Pdata.asp Ordering Provider: SURINDER MIKE Report Released Date/Time: Jun 06, 2025 02:37 PM Reporting Lab: [address] [address] Performing Lab: [address] [address] [facility] CBC LEUKOCYTES [#/VOLUME] IN BLOOD BY AUTOMATED COUNT 8.08 10*3/u L 4.50 - 11.00 06/06 Specimen Type: BLOOD No comment entered. Ordering Provider: SURINDER MIKE Report Released Date/Time: Jun 06, 2025 02:37 PM Reporting Lab: [address] [address] Performing Lab: [facility] [address] [address] [facility] CBC ERYTHROCYTE S [#/VOLUME] IN BLOOD BY AUTOMATED COUNT 4.38 10*6/u L 4.23 - 5.66 06/06 Specimen Type: BLOOD No comment entered. Ordering Provider: SURINDER MIKE Report Released Date/Time: Jun 06, 2025 02:37 PM Reporting Lab: [address] [address] Performing Lab: [address] [address] [facility] [place] [facility] CBC HEMOGLOBIN [MASS/VOLUM E] IN BLOOD 13.5 g/dL 12.8 - 17 06/06 Specimen Type: BLOOD No comment entered. Ordering Provider: SURINDER MIKE Report Released Date/Time: Jun 06, 2025 02:37 PM Reporting Lab: [facility] [place] [facility] [address] [facility] [address] Performing Lab: [facility] [place] [facility] [address] [facility] [address] [facility] [place] [facility] CBC HEMATOCRIT [VOLUME FRACTION] OF BLOOD BY AUTOMATED COUNT 39.3 39.2 - 50.4 06/06 Specimen Type: BLOOD No comment entered. Ordering Provider: SURINDER MIKE Report Released Date/Time: Jun 06, 2025 02:37 PM Reporting Lab: [facility] [place] [address] [address] Performing Lab: [facility] [place] [address] [address] [facility] [place] [place] [facility] CBC MCV [ENTITIC VOLUME] BY AUTOMATED COUNT 89.7 fL 82 - 99 06/06 Specimen Type: BLOOD No comment entered. Ordering Provider: SURINDER MIKE Report Released Date/Time: Jun 06, 2025 02:37 PM Reporting Lab: [facility] [place] [address] [address] Performing Lab: [facility] [place] [address] [address] [facility] [place] [facility] CBC MCHC [MASS/VOLUM E] BY AUTOMATED COUNT 34.4 g/dL 30.8 - 35.1 06/06 Specimen Type: BLOOD No comment entered. Ordering Provider: SURINDER MIKE Report Released Date/Time: Jun 06, 2025 02:37 PM Reporting Lab: [facility] [place] [address] [address] Performing Lab: [facility] [place] [address] [address] [facility] [place] [facility] CBC PLATELETS [#/VOLUME] IN BLOOD BY AUTOMATED COUNT 234 10*3/u L 140 - 360 06/06 Specimen Type: BLOOD No comment entered. Ordering Provider: SURINDER MIKE Report Released Date/Time: Jun 06, 2025 02:37 PM Reporting Lab: [facility] [place] [address] [address] Performing Lab: [facility] [place] [address] [address] [facility] [place] [facility] CBC PLATELET MEAN VOLUME [ENTITIC VOLUME] IN BLOOD BY AUTOMATED COUNT 10.0 fL 9.2 - 12.4 06/06 Specimen Type: BLOOD No comment entered. Ordering Provider: SURINDER MIKE Report Released Date/Time: Jun 06, 2025 02:37 PM Reporting Lab: [facility] [place] [address] [address] Performing Lab: [facility] [place] [address] [address] [place] [facility] [place] [place] [facility] CBC ERYTHROCYTE DISTRIBUTIO N WIDTH [RATIO] BY AUTOMATED COUNT 13.0 12.0 - 16.0 06/06 Specimen Type: BLOOD No comment entered. Ordering Provider: SURINDER MIKE Report Released Date/Time: Jun 06, 2025 02:37 PM Reporting Lab: [facility] [place] [address] [address] Performing Lab: [facility] [place] [address] [address] [facility] [place] [facility] CBC MCH [ENTITIC MASS] BY AUTOMATED COUNT 30.8 pg 26.2 - 32.6 06/06 Specimen Type: BLOOD No comment entered. Ordering Provider: SURINDER MIKE Report Released Date/Time: Jun 06, 2025 02:37 PM Reporting Lab: [facility] [place] [address] [address] Performing Lab: [facility] [employer] [address] [facility] [address] [facility] HEMOGLOBI N A1C PANEL HEMOGLOBIN A1C/HEMOGLO BIN.TOTAL [...] Feb 17, 2025 12:49 PM Reporting Lab: [address] [address] Performing Lab: [address] [address] [facility] LIPID PANEL FASTING CHOLESTEROL [MASS/VOLUM E] IN SERUM OR PLASMA 140 mg/dL 02/17 Specimen Type: SERUM No comment entered. Ordering Provider: SURINDER MIKE Report Released Date/Time: Feb 17, 2025 12:49 PM Reporting Lab: [address] [address] Performing Lab: [address] [address] [facility] LIPID PANEL FASTING TRIGLYCERID E [MASS/VOLUM E] IN SERUM OR PLASMA 108 mg/dL 0 - 150 02/17 Specimen Type: SERUM No comment entered. Ordering Provider: SURINDER MIKE Report Released Date/Time: Feb 17, 2025 12:49 PM Reporting Lab: [address] [address] Performing Lab: [address] [address] [facility] LIPID PANEL FASTING CHOLESTEROL IN LDL [MASS/VOLUM E] IN SERUM OR PLASMA BY CALCULATION 72 mg/dL 0 - 129 02/17 Specimen Type: SERUM No comment entered. Ordering Provider: SURINDER MIKE Report Released Date/Time: Feb 17, 2025 12:49 PM Reporting Lab: [facility] [place] [address] [address] Performing Lab: [facility] [place] [address] [address] [place] [facility] [place] [facility] LIPID PANEL FASTING CHOLESTEROL .TOTAL/CHOL ESTEROL IN HDL [MASS RATIO] IN SERUM OR PLASMA 3.0 02/17 Specimen Type: SERUM No comment entered. Ordering Provider: SURINDER MIKE Report Released Date/Time: Feb 17, 2025 12:49 PM Reporting Lab: [place] [facility] [place] [address] [address] Performing Lab: [place] [facility] [place] [address] [address] [facility] [place] [facility] LIPID PANEL FASTING CHOLESTEROL IN HDL [MASS/VOLUM E] IN SERUM OR PLASMA 46 mg/dL 40 - 60 02/17 Specimen Type: SERUM No comment entered. Ordering Provider: SURINDER MIKE Report Released Date/Time: Feb 17, 2025 12:49 PM Reporting Lab: [facility] [place] [address] [address] Performing Lab: [facility] [place] [place] [address] [address] [place] [facility] [place] [place] [facility] MICROALBU MIN CREATININ E RATIO PANEL MICROALBUMI N/CREATININ E [MASS RATIO] IN URINE 17.0 mg/g 0 - 29.9 02/17 Specimen Type: URINE No comment entered. Ordering Provider: SURINDER MIKE Report Released Date/Time: Feb 17, 2025 12:49 PM Reporting Lab: [facility] [place] [address] [address] Performing Lab: [place] [facility] [place] [facility] [address] [facility] [address] [place] [facility] [place] [facility] MICROALBU MIN CREATININ E RATIO PANEL MICROALBUMI N [MASS/VOLUM E] IN URINE BY DETECTION LIMIT <= 1.0 MG/L 3.6 mg/dL 02/17 Specimen Type: URINE No comment entered. Ordering Provider: SURINDER MIKE Report Released Date/Time: Feb 17, 2025 12:49 PM Reporting Lab: [place] [facility] [place] [facility] [address] [facility] [address] Performing Lab: [place] [place] [facility] [address] [facility] [address] [facility] [place] [facility] MICROALBU MIN CREATININ E RATIO PANEL CREATININE [MASS/VOLUM E] IN URINE 211.81 mg/dL 02/17 Specimen Type: URINE No comment entered. Ordering Provider: SURINDER MIKE Report Released Date/Time: Feb 17, 2025 12:49 PM Reporting Lab: [facility] [place] [place] [address] [address] Performing Lab: [facility] [address] [address] [facility] BASIC METABOLIC PANEL (fasting) UREA NITROGEN [MASS/VOLUM E] IN SERUM OR PLASMA 15 mg/dL 7 - 25 02/17 Specimen Type: SERUM No comment entered. Ordering Provider: SURINDER MIKE Report Released Date/Time: Feb 17, 2025 12:49 PM Reporting Lab: [facility] [place] [address] [address] Performing Lab: [facility] [place] [place] [address] [address] [facility] [place] [facility] BASIC METABOLIC PANEL (fasting) GLUCOSE [MASS/VOLUM E] IN SERUM OR PLASMA 75 mg/dL 65 - 100 02/17 Specimen Type: SERUM No comment entered. Ordering Provider: SURINDER MIKE Report Released Date/Time: Feb 17, 2025 12:49 PM Reporting Lab: [place] [facility] [place] [facility] [address] [facility] [address] Performing Lab: [place] [facility] [place] [facility] [address] [facility] [address] [facility] [place] [facility] BASIC METABOLIC PANEL (fasting) SODIUM [MOLES/VOLU ME] IN SERUM OR PLASMA 134 mmol/L 135 - 145 02/17 L Specimen Type: SERUM No comment entered. Ordering Provider: SURINDER MIKE Report Released Date/Time: Feb 17, 2025 12:49 PM Reporting Lab: [place] [facility] [place] [facility] [address] [facility] [address] Performing Lab: [place] [facility] [place] [address] [address] [facility] BASIC METABOLIC PANEL (fasting) POTASSIUM [MOLES/VOLU ME] IN SERUM OR PLASMA 3.9 mmol/L 3.5 - 5.0 02/17 Specimen Type: SERUM No comment entered. Ordering Provider: SURINDER MIKE Report Released Date/Time: Feb 17, 2025 12:49 PM Reporting Lab: [place] [facility] [place] [place] [address] [address] Performing Lab: [place] [facility] [place] [place] [address] [address] [facility] [place] [facility] BASIC METABOLIC PANEL (fasting) CHLORIDE [MOLES/VOLU ME] IN SERUM OR PLASMA 105 mmol/L 100 - 110 02/17 Specimen Type: SERUM No comment entered. Ordering Provider: SURINDER MIKE Report Released Date/Time: Feb 17, 2025 12:49 PM Reporting Lab: [place] [facility] [place] [facility] [address] [facility] [address] Performing Lab: [place] [facility] [place] [address] [address] [place] [facility] [place] [place] [facility] BASIC METABOLIC PANEL (fasting) CARBON DIOXIDE, TOTAL [MOLES/VOLU ME] IN SERUM OR PLASMA 22 meq/L 20 - 30 02/17 Specimen Type: SERUM No comment entered. Ordering Provider: SURINDER MIKE Report Released Date/Time: Feb 17, 2025 12:49 PM Reporting Lab: [place] [facility] [place] [address] [address] Performing Lab: [facility] [address] [facility] BASIC METABOLIC PANEL (fasting) CALCIUM [MASS/VOLUM E] IN SERUM OR PLASMA 9.3 mg/dL 8.5 - 10.2 02/17 Specimen Type: SERUM No comment entered. Ordering Provider: SURINDER MIKE Report Released Date/Time: Feb 17, 2025 12:49 PM Reporting Lab: [facility] [address] [address] Performing Lab: [facility] [address] [facility] BASIC METABOLIC PANEL (fasting) CREATININE [MASS/VOLUM E] IN SERUM OR PLASMA 0.87 mg/dL 0.50 - 1.40 02/17 Specimen Type: SERUM No comment entered. Ordering Provider: SURINDER MIKE Report Released Date/Time: Feb 17, 2025 12:49 PM Reporting Lab: [place] [facility] [place] [address] [address] Performing Lab: [facility] [address] [facility] BASIC METABOLIC PANEL (fasting) GLOMERULAR FILTRATION RATE/1.73 SQ M.PREDICTED [VOLUME RATE/AREA] IN SERUM, PLASMA OR BLOOD BY CREATININE- BASED FORMULA (CKD-EPI 2020) >90mL/ min 60 02/17 Specimen Type: SERUM No comment entered. Ordering Provider: SURINDER MIKE Report Released Date/Time: Feb 17, 2025 12:49 PM Reporting Lab: [place] [facility] [place] [address] [address] Performing Lab: [facility] [place] [facility] [address] [facility] [address] [facility] [place] [facility] CBC LEUKOCYTES [#/VOLUME] IN BLOOD BY AUTOMATED COUNT 10.02 10*3/u L 4.50 - 11.00 02/17 Specimen Type: BLOOD No comment entered. Ordering Provider: SURINDER MIKE Report Released Date/Time: Feb 17, 2025 12:49 PM Reporting Lab: [facility] [place] [facility] [address] [facility] [address] Performing Lab: [facility] [place] [facility] [address] [facility] [address] [facility] [place] [facility] CBC ERYTHROCYTE S [#/VOLUME] IN BLOOD BY AUTOMATED COUNT 4.82 10*6/u L 4.23 - 5.66 02/17 Specimen Type: BLOOD No comment entered. Ordering Provider: SURINDER MIKE Report Released Date/Time: Feb 17, 2025 12:49 PM Reporting Lab: [facility] [place] [facility] [address] [facility] [address] Performing Lab: [facility] [place] [place] [address] [address] [facility] [place] [facility] CBC HEMOGLOBIN [MASS/VOLUM E] IN BLOOD 14.7 g/dL 12.8 - 17 02/17 Specimen Type: BLOOD No comment entered. Ordering Provider: SURINDER MIKE Report Released Date/Time: Feb 17, 2025 12:49 PM Reporting Lab: [facility] [place] [address] [address] Performing Lab: [facility] [place] [facility] [address] [place] [address] [facility] [place] [facility] CBC HEMATOCRIT [VOLUME FRACTION] OF BLOOD BY AUTOMATED COUNT 43.0 39.2 - 50.4 02/17 Specimen Type: BLOOD No comment entered. Ordering Provider: SURINDER MIKE Report Released Date/Time: Feb 17, 2025 12:49 PM Reporting Lab: [facility] [place] [facility] [address] [facility] [address] Performing Lab: [facility] [place] [facility] [address] [facility] [address] [facility] [place] [facility] CBC MCV [ENTITIC VOLUME] BY AUTOMATED COUNT 89.2 fL 82 - 99 02/17 Specimen Type: BLOOD No comment entered. Ordering Provider: SURINDER MIKE Report Released Date/Time: Feb 17, 2025 12:49 PM Reporting Lab: [facility] [place] [facility] [address] [facility] [address] Performing Lab: [facility] [place] [facility] [address] [facility] [address] [facility] [place] [facility] CBC MCHC [MASS/VOLUM E] BY AUTOMATED COUNT 34.2 g/dL 30.8 - 35.1 02/17 Specimen Type: BLOOD No comment entered. Ordering Provider: SURINDER MIKE Report Released Date/Time: Feb 17, 2025 12:49 PM Reporting Lab: [facility] [place] [facility] [address] [facility] [address] Performing Lab: [facility] [place] [facility] [address] [facility] [address] [facility] [place] [place] [facility] CBC PLATELETS [#/VOLUME] IN BLOOD BY AUTOMATED COUNT 207 10*3/u L 140 - 360 02/17 Specimen Type: BLOOD No comment entered. Ordering Provider: SURINDER MIKE Report Released Date/Time: Feb 17, 2025 12:49 PM Reporting Lab: [facility] [place] [facility] [address] [facility] [address] Performing Lab: [facility] [place] [facility] [address] [facility] [address] [facility] [place] [facility] CBC [place] MEAN VOLUME [ENTITIC VOLUME] IN BLOOD BY AUTOMATED COUNT 11.5 fL 9.2 - 12.4 02/17 Specimen Type: BLOOD No comment entered. Ordering Provider: SURINDER MIKE Report Released Date/Time: Feb 17, 2025 12:49 PM Reporting Lab: [facility] [place] [facility] [address] [facility] [address] Performing Lab: [facility] [place] [facility] [address] [facility] [address] [facility] [place] [facility] CBC ERYTHROCYTE DISTRIBUTIO N WIDTH [RATIO] BY AUTOMATED COUNT 13.9 12.0 - 16.0 02/17 Specimen Type: BLOOD No comment entered. Ordering Provider: SURINDER MIKE Report Released Date/Time: Feb 17, 2025 12:49 PM Reporting Lab: [facility] [place] [facility] [address] [facility] [address] Performing Lab: [facility] [place] [facility] [address] [facility] [address] [facility] [place] [facility] CBC MCH [ENTITIC MASS] BY AUTOMATED COUNT 30.5 pg 26.2 - 32.6 02/17 Specimen Type: BLOOD No comment entered. Ordering Provider: SURINDER MIKE Report Released Date/Time: Feb 17, 2025 12:49 PM Reporting Lab: [place] [facility] [place] [address] [address] Performing Lab: [facility] [place] [place] [address] [address] [place] [facility] BASIC METABOLIC PANEL (fasting) UREA NITROGEN [MASS/VOLUM E] IN SERUM OR PLASMA 18 mg/dL 7 - 25 10/25 Specimen Type: SERUM No comment entered. Ordering Provider: CATIA SOTO Report Released Date/Time: Oct 22, 2024 03:16 PM Reporting Lab: [place] [facility] [place] [address] [address] Performing Lab: [place] [address] [address] [facility] BAS[facility] METABOLIC PANEL (fasting) GLUCOSE [MASS/VOLUM E] IN SERUM OR PLASMA 197 mg/dL 65 - 100 10/25 H Specimen Type: SERUM No comment entered. Ordering Provider: CATIA SOTO Report Released Date/Time: Oct 22, 2024 03:16 PM Reporting Lab: [facility] [address] Performing Lab: [facility]N [employer] [address] [facility] [address] [place] BASIC METABOLIC PANEL (fasting) SODIUM [MOLES/VOLU ME] IN SERUM OR PLASMA 137 mmol/L 135 - 145 10/25 Specimen Type: SERUM No comment entered. Ordering Provider: CATIA SOTO Report Released Date/Time: Oct 22, 2024 03:16 PM Reporting Lab: [facility]ITAL[facility] HOSPITALN [address] [address] Performing Lab: [facility] [address] [address] [place] BASIC METABOLIC PANEL (fasting) POTASSIUM [MOLES/VOLU ME] IN SERUM OR PLASMA 3.4 mmol/L 3.5 - 5.0 10/25 L Specimen Type: SERUM No comment entered. Ordering Provider: CATIA SOTO Report Released Date/Time: Oct 22, 2024 03:16 PM Reporting Lab: [facility] TRN [address] [address] Performing Lab: [facility]ITALN [address] [address] [place] BASIC METABOLIC PANEL (fasting) CHLORIDE [MOLES/VOLU ME] IN SERUM OR PLASMA 105 mmol/L 100 - 110 10/25 Specimen Type: SERUM No comment entered. Ordering Provider: CATIA SOTO Report Released Date/Time: Oct 22, 2024 03:16 PM Reporting Lab: [facility] [address] Performing Lab: [facility]ITAL[facility]OSPITALN [facility] [address] [place] BASIC METABOLIC PANEL (fasting) CARBON DIOXIDE, TOTAL [MOLES/VOLU ME] IN SERUM OR PLASMA 24 meq/L 20 - 30 10/25 Specimen Type: SERUM No comment entered. Ordering Provider: CATIA SOTO Report Released Date/Time: Oct 22, 2024 03:16 PM Reporting Lab: [facility] [address] [facility] [address] Performing Lab: [address] [address] [place] BASIC METABOLIC PANEL (fasting) CREATININE [MASS/VOLUM E] IN SERUM OR PLASMA 0.83 mg/dL 0.50 - 1.40 10/25 Specimen Type: SERUM No comment entered. Ordering Provider: CATIA SOTO Report Released Date/Time: Oct 22, 2024 03:16 PM Reporting Lab: [address] [address] Performing Lab: [address] [address] [place] BASIC METABOLIC PANEL (fasting) GLOMERULAR FILTRATION RATE/1.73 SQ M.PREDICTED [VOLUME RATE/AREA] IN SERUM, PLASMA OR BLOOD BY CREATININE- BASED FORMULA (CKD-EPI 2020) >90mL/ min 60 10/25 Specimen Type: SERUM No comment entered. Ordering Provider: CATIA SOTO Report Released Date/Time: Oct 22, 2024 03:16 PM Reporting Lab: [address] [address] Performing Lab: [address] [address] [place] LIPID PANEL FASTING CHOLESTEROL [MASS/VOLUM E] IN SERUM OR PLASMA 132 mg/dL 10/25 Specimen Type: SERUM No comment entered. Ordering Provider: CATIA SOTO Report Released Date/Time: Oct 22, 2024 03:16 PM Reporting Lab: [address] [address] Performing Lab: [facility] [address] [address] [place] LIPID PANEL FASTING TRIGLYCERID E [MASS/VOLUM E] IN SERUM OR PLASMA 161 mg/dL 0 - 150 10/25 H Specimen Type: SERUM No comment entered. Ordering Provider: CATIA SOTO Report Released Date/Time: Oct 22, 2024 03:16 PM Reporting Lab: [address] [address] Performing Lab: [address] [address] [place] LIPID PANEL FASTING CHOLESTEROL IN LDL [MASS/VOLUM E] IN SERUM OR PLASMA BY CALCULATION 71 mg/dL 0 - 129 10/25 Specimen Type: SERUM No comment entered. Ordering Provider: CATIA SOTO Report Released Date/Time: Oct 22, 2024 03:16 PM Reporting Lab: [address] [address] Performing Lab: [address] [address] [place] LIPID PANEL FASTING CHOLESTEROL .TOTAL/CHOL ESTEROL IN HDL [MASS RATIO] IN SERUM OR PLASMA 4.6 10/25 Specimen Type: SERUM No comment entered. Ordering Provider: CATIA SOTO Report Released Date/Time: Oct 22, 2024 03:16 PM Reporting Lab: [address] [address] Performing Lab: [address] [address] [place] LIPID PANEL FASTING CHOLESTEROL IN HDL [MASS/VOLUM E] IN SERUM OR PLASMA 29 mg/dL 40 - 60 10/25 L Specimen Type: SERUM No comment entered. Ordering Provider: CATIA SOTO Report Released Date/Time: Oct 22, 2024 03:16 PM Reporting Lab: [address] [address] Performing Lab: [facility] [address] [facility] [address] [facility] Vital Signs Combined list of inpatient and outpatient Vital Signs from Department of Defense and Veterans Affairs, ranging from 12 months to all on record, depending upon the facility. Vital Sign Value Date Comments Source SYSTOLIC BLOOD PRESSURE 102 04/15/2025 13:46:58 [place] DIASTOLIC BLOOD PRESSURE 56 04/15/2025 13:46:58 [place] PULSE OXIMETRY 97 % 04/15/2025 13:46:58 [place] PAIN 2 04/15/2025 13:46:58 [place] TEMPERATURE 97.9 04/15/2025 13:46:58 [place] PULSE 87 04/15/2025 13:46:58 [place] RESPIRATION 20 04/15/2025 13:46:58 [facility] [place] [facility]ESS[facility] 113 04/12/2025 14:19:51 [place] DIASTOLIC BLOOD PRESSURE 62 04/12/2025 14:19:51 [place] PULSE OXIMETRY 97 04/12/2025 14:19:51 [place] PAIN 3 04/12/2025 14:19:51 [place] TEMPERATURE 98.2 04/12/2025 14:19:51 [place] PULSE 90 04/12/2025 14:19:51 [place] RESPIRATION 18 04/12/2025 14:19:51 [place] SYSTOLIC BLOOD PRESSURE 137 03/18/2025 11:41:13 [place] DIASTOLIC BLOOD PRESSURE 81 03/18/2025 11:41:13 [place] PULSE OXIMETRY 97 03/18/2025 11:41:13 [place] WEIGHT 250 03/18/2025 11:41:13 [place] BMI 32 kg/m2 03/18/2025 11:41:13 [place] HEIGHT 74 03/18/2025 11:41:13 [place] TEMPERATURE 96.9 03/18/2025 11:41:13 [place] PULSE 90 03/18/2025 11:41:13 [place] RESPIRATION 19 03/18/2025 11:41:13 [place] SYSTOLIC BLOOD PRESSURE 121 10/28/2024 15:31:43 [place] DIASTOLIC BLOOD PRESSURE 75 10/28/2024 15:31:43 [place] PULSE OXIMETRY 97 10/28/2024 15:31:43 [place] WEIGHT 252 10/28/2024 15:31:43 [place] BMI 32 kg/m2 10/28/2024 15:31:43 [place] TEMPERATURE 98.2 10/28/2024 15:31:43 [place] PULSE 88 10/28/2024 15:31:43 [facility] PRESSURE 116 09/10/2024 14:17:27 [place] DIASTOLIC BLOOD PRESSURE 72 09/10/2024 14:17:27 [place] PULSE OXIMETRY 96 09/10/2024 14:17:27 [place] WEIGHT 248.2 09/10/2024 14:17:27 [place] BMI 32 kg/m2 09/10/2024 14:17:27 [place] TEMPERATURE 97 09/10/2024 14:17:27 [place] PULSE 86 09/10/2024 14:17:27 [place] Encounters Combined list of: 1) Encounters from [facility] facilities going backup to the last 18 months, not all [place] inpatient encounters are included; 2) Encounters from the [facility] facilities going backup to 280 months. Location Location Details Encounter Type Encounter Number Reason For Visit Attending Provider ADM Date DC Date Status Disposition Source [place] [facility] [place] [facility] [place] 1/ [id number] Diagnos is: ICD-10- CM E11.9 Type 2 diabete s mellitu s without complic ations ZACH ZAPATA 02/05 [place] [facility] [facility] [place] [facility] FIT SPECTACLES BIFOCAL [id number] Diagnos is: ICD-10- CM Z46.0 Encount er for fit/adj st of spectac les and contact lenses ZACH ZAPATA 02/05 [place] [facility] [facility] [place] Outpatient En[place] [id number] 02/09 [place] [facility] En[facility] [id number] 02/12 [facility] [place] QNHP OL DIG ASSMT&MGMT 21+ [id number] Diagnos is: ICD-10- CM Z12.2 Encntr screen for maligna nt neoplas m of respira tory organs ANNETTE CAMPOS 02/15 [facility] [place] En[facility] [id number] 02/19 [facility] [place] Outpatient Encounter [id number] 02/23 [place] [facility] Encounter [id number] 03/12 [facility] [place] Out[place] En[place] [id number] 03/17 [place] Out[place] Encounter [id number] Diagnos is: ICD-10- CM F43.10 Post-tr aumatic stress disorde r, unspeci fied ST RENEA WORKMAN G 03/22 [place] PSYTX W PT 45 MINUTES 03555-8.63 [id number] Diagnos is: ICD-10- CM F32.9 Major depress iam disorde r, single episode , unspeci fied OFGILBERTO MEJIA I 03/23 [place] MT[place] BY PHARM ADDL 15 MIN 39905-5.63 [id number] Diagnos is: ICD-10- CM E11.65 Type 2 diabete s mellitu s with hypergl ycemia MIKE,IZ ABELA A 04/02 [place] [facility] Encounter [id number] 04/03 [facility] Outpatient Encounter [id number] 04/05 [facility] [place] OFF/OP EST MAY X REQ PHY/QHP 04526-3.63 [id number] Diagnos is: ICD-10- CM 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 01 Diagnos is: ICD-10- CM F32.9 Major depress iam disorde r, single episode , unspeci fied OFGILBERTO MEJIA I 05/04 [facility] [place] OFF[place] 40 MIN [id number] [id number] Diagnos is: ICD-10- CM R01.1 Cardiac murmur, unspeci fied NICKIE BALDWIN M 05/06 [facility] Outpatient Encounter [id number] [id number]/06 [facility] [place] MTMS BY PHARM ADDL 15 MIN 13623-1.63 [id number] Diagnos is: ICD-10- CM E11.65 Type 2 diabete s mellitu s with hypergl ycemia MIKE,IZ ABOTTO A 05/06 [facility] [id number] [id number] Diagnos is: ICD-10- CM Z13.6 Encount er for screeni ng for cardiov ascular disorde rs LUIS ANGEL,PAR UL U 05/06 [place] [facility] [place] ELECTROCAR DIOGRAM TRACING [id number] [id number] Diagnos is: ICD-10- CM I10 Essenti al (primar y) hyperte nsion IRENE,NI ANGELITO R 05/06 [place] [facility] Outpatient Encounter [id number] 05/07 [facility] Outpatient Encounter [id number] [id number] 05/09 [facility] Outpatient Encounter [id number] 05/10 [facility] Outpatient Encounter [id number] [id number] 05/11 [facility] [place] OFF/OP EST MAY X REQ PHY/QHP 53346-5.63 1BY.[id number] 42 Diagnos is: ICD-10- CM 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 GRANT Scanlon 05/11 [place] [facility] Outpatient Encounter [id number] [id number] 05/18 [facility] Out[facility] Encounter 09863-2.63 1BY.[id number] 82 05/19 [place] [facility] OFFICE O/P [place] HI 40 MIN [id number] [id number] Diagnos is: ICD-10- CM F32.9 Major depress iam disorde r, single episode , unspeci fied ST RENEA WORKMAN G 05/28 [place] [facility] Outpatient Encounter 32410-7.63 1.06/01 [facility] Encounter 14844-7.63 1.06/01 [facility] TTE W/DOPPLER COMPLETE [id number] [id number] Diagnos is: ICD-10- CM R01.1 Cardiac murmur, unspeci fiadrienne MIRANDAELLEN 06/04 [facility] EXT ECG>48HR<7 D RECORDING [id number] Diagnos is: ICD-10- CM I49.9 Cardiac arrhyth reynold, unspeci fiGRANT Bermudez 06/04 [facility] EST MAY X REQ PHY/QHP 41332-0.68 [id number] Diagnos is: ICD-10- CM Z13.6 Encount er for screeni ng for cardiov ascular disorde rs Tracy ZHAO 06/04 [facility] [place] PSYTX W PT 45 MINUTES 60222-2.63 [id number] Diagnos is: ICD-10- CM F32.9 Major depress iam disorde r, single episode , unspeci fied GILBERTO TALAMANTES I 06/09 [facility] OFFICE O/P EST MOD 30 MIN 59075-2.63 [id number] 44 Diagnos is: ICD-10- CM F32.9 Major depress iam disorde r, single episode , unspeci fied ST RENEA WORKMAN G 06/09 [facility] Outpatient Encounter [id number] 06/09 [facility] Encounter [id number] [id number] 06/10 [place] [facility] [place] [place] Outpatient Encounter [id number] [id number] Diagnos is: ICD-10- CM Z04.89 Encount er for examina tion and observa tion for oth reasons ELENITA NOEL 06/17 [facility] Outpatient Encounter [id number] [id number] Diagnos is: ICD-10- CM Z04.89 Encount er for examina tion and observa tion for oth reasons MINNA DHALIWAL 06/22 [facility] [place] Outpatient Encounter [id number] [id number] 40 06/25 [facility] [place] OFFICE O/[place] HI 40 MIN [id number] [id number] 53 Diagnos is: ICD-10- CM F32.9 Major depress iam disorde r, single episode , unspeci fied ST RENEA WORKMAN G 06/25 [facility] [place] PSYTX W PT 45 MINUTES 08283-1.63 1BY. 41 Diagnos is: ICD-10- CM F32.A Depress ion, unspeci fied GILBERTO TALAMANTES I 07/06 [facility] [place] [facility] Outpatient Encounter [id number] [id number] 07/13 [place] [facility] [place] [facility] Outpatient Encounter [id number] [id number]/20 [place] [facility] [facility] [place] [facility] [place] OFF[place] O/P EST MOD 30 MIN 49564-7.63 [id number] Diagnos is: ICD-10- CM F32.9 Major depress iam disorde r, single episode , unspeci fied ST RENEA WORKMAN G 07/27 [facility] [place] MTMS BY PHARM ADDL 15 MIN 98933-5.63 [id number] Diagnos is: ICD-10- CM E11.65 Type 2 diabete s mellitu s with hypergl ycemia MIKE,ELOISE ABOTTO [place]MMUNIZ[place] ADMIN 80241-4.63 [id number] 98 Diagnos is: ICD-10- CM Z23 Encount er for immuniz atVICTORIA Carnes 07/30 [place] [facility] Outpatient Encounter [id number] 08/02 [facility] [place] OFF/OP EST MARCH X REQ PHY/QHP 02107-4.63 1BY.[id number] 54 Diagnos is: ICD-10- CM 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 GRANT AVELAR [place] PSYTX W PT 45 MINUTES 26660-2.63 1BY.[id number] 61 Diagnos is: ICD-10- CM F33.1 Major depress iam disorde r, recurre nt, moderat e OFRAT,SHAN I [place] [facility] Out[facility] Encounter [id number] [id number] 08/24 [facility] Out[facility] Encounter [id number] [id number] 08/25 [facility] Out[facility] Encounter [id number] [id number] 08/30 [facility] Out[facility] Encounter [id number] [id number] 08/31 [facility] Out[facility] Encounter [id number] 1.08/31 [facility] Out[facility] Encounter [id number] [id number] 09/01 [facility] Out[facility] Encounter [id number] [id number] 09/01 [facility] Out[facility] Encounter [id number] [id number] 09/03 [facility] Outpatient Encounter 30570-7.63 1.09/06 [facility] Outpatient Encounter 64060-3.63 1.09/07 [facility] [place] OFF[place] O/P EST MOD 30 MIN 50139-1.63 1BY.[id number] 57 Diagnos is: ICD-10- CM F32.9 Major depress iam disorde r, single episode , unspeci fied WORKMANST KUMARAAMIR G 09/08 [place] MTMS BY PHARM ADDL 15 MIN [id number] 1BY.[id number] 20 Diagnos is: ICD-10- CM E11.65 Type 2 diabete s mellitu s with hypergl ycemia MIKE,IZ ABELA A 09/08 [place] [facility] Outpatient Encounter [id number] 09/08 [facility] [place] [place] [place] OFFICE O/P EST HI 40 MIN [id number] 1BY.[id number] 97 Diagnos is: ICD-10- CM I10 Essenti al (primar y) hyperte nsion MARVIN SHEFFIELDOG LEN M 09/10 [place] [facility] Outpatient Encounter [id number] [id number]/10 [facility] Outpatient Encounter [id number] 1.09/11 [facility] Outpatient Encounter [id number] 1.09/13 [facility] ([id number]) QNHP OL DIG ASSMT&MGMT 5-10 [id number] [id number] Diagnos is: ICD-10- CM E11.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 mellitu s with diabeti c neuropa thy, unsp MARQUEZ,QUE N 09/14 [id number] OFFICE O/P [place] HI 40 MIN [id number] [id number] Diagnos is: ICD-10- CM F32.9 Major depress iam disorde r, single episode , unspeci fied ST RENEA WORKMAN 10/06 [place] [facility] Outpatient Encounter [id number] 1.10/18 [facility] Outpatient Encounter [id number] [id number]/26 [facility] Outpatient Encounter [id number] 10/28 [facility] [place] OFFICE O/[place] HI 40 MIN [id number] 1BY.[id number] Diagnos is: ICD-10- CM I10 Essenti al (primar y) hyperte nsion NICKIE BALDWIN 10/28 [place] [facility] Outpatient Encounter [id number] 1.10/30 [facility] [place] Outpatient Encounter [id number] [id number] 10/30 [facility] [place] Outpatient Encounter [id number] [id number].[id number] 38 11/02 [place] [facility] Outpatient Encounter [id number] [id number] 11/03 [facility] [place] 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 15 MIN 82163-2.63 1BY.[id number] 37 Diagnos is: ICD-10- CM E11.65 Type 2 diabete s mellitu s with hypergl ycemia ELOISE MIKE 11/08 [place] [facility] Outpatient Encounter [id number] [id number] 11/26 [facility] [place] [place] [place] PSYTX W PT 45 MINUTES [id number] [id number] 64 Diagnos is: ICD-10- CM F32.9 Major depress iam disorde r, single episode , unspeci fied OFGILBERTO MEJIA I 11/30 [facility] [place] OFFICE O/P EST MOD 30 MIN [id number] [id number].[id number] 53 Diagnos is: ICD-10- CM F32.9 Major depress iam disorde r, single episode , unspeci fied WORKMAN,ST JOSÉAAMIR G 11/30 [facility] [place] MTMS BY PHARM EST 15 MIN 12387-3.63 [id number] 06 Diagnos is: ICD-10- CM E11.65 Type 2 diabete s mellitu s with hypergl ycemia ELOISE MIKE 12/07 [facility] [place] MTMS BY PHARM EST 15 MIN 52869-3.63 [id number].[id number] 72 Diagnos is: ICD-10- CM E11.8 Type 2 diabete s mellitu s with unspeci fied complic ations ELOISE MIKE 12/17 [place] [facility] Outpatient Encounter [id number] [id number] 12/17 [facility] [place] [facility] OFFICE O/P NEW HI 60 MIN [id number] [id number] Diagnos is: ICD-10- CM L57.0 Actinic keratos is LIBAN ROBBINS 12/21 [facility] [place] [place] [place] PSYTX W PT 45 MINUTES [id number] [id number] Diagnos is: ICD-10- CM F32.9 Major depress iam disorde r, single episode , unspeci fied OFRAT,SHAN I 12/28 [place] [facility] Outpatient Encounter [id number] 12/31 [facility] [place] [place] OFF/OP EST MARCH X REQ PHY/QHP 83105-2.63 1BY.[id number] 53 Diagnos is: ICD-10- CM 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 GRANT AVELAR [place] [facility] Outpatient Encounter [id number] [id number] 01/13 [facility] [place] Outpatient Encounter [id number] [id number] 01/16 [facility] [place] [place] [place] PSYTX W PT 45 MINUTES 24509-1.63 1BY.[id number] 50 Diagnos is: ICD-10- CM F32.9 Major depress iam disorde r, single episode , unspeci fied OFRAT,SHAN I 01/25 [place] OFFICE O/P EST HI 40 MIN 03479-2.63 1BY.[id number] 85 Diagnos is: ICD-10- CM F32.9 Major depress iam disorde r, single episode , unspeci fied WORKMAN,ST EPHEN G 01/25 [place] [facility] Out[facility] En[facility] [id number] [id number]/26 [facility] Encounter [id number] [id number]/08 [facility] COMPRE OPH EXAM EST PT 1/ [id number] [id number] Diagnos is: ICD-10- CM E11.9 Type 2 diabete s mellitu s without complic ations ZACH ZAPATA 02/08 [facility] NQHP OL DIG ASSMT&MGMT 21+ [id number] [id number] Diagnos is: ICD-10- CM Z12.2 Encntr screen for maligna nt neoplas m of respira tory organs ANNETTE CAMPOS 02/08 [facility] Outpatient Encounter [id number] [id number]/09 [facility] [place] OFF/OP EST MARCH X REQ PHY/QHP 26750-3.63 [id number].[id number] 75 Diagnos is: ICD-10- CM 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 GRANT Scanlon 02/10 [place] [facility] Out[facility] Encounter [id number] [id number] 02/17 [facility] [place] MT[place] BY PHARM EST 15 MIN 68918-1.63 [id number] 05 Diagnos is: ICD-10- CM E11.8 Type 2 diabete s mellitu s with unspeci fied complic ations ELOISE MIKE 02/17 [place] [facility] Outpatient Encounter [id number] [id number]/04 [facility] [place] [facility] OFFICE O/P EST MOD 30 MIN [id number] 1BY.[id number] 86 Diagnos is: ICD-10- CM F32.9 Major depress iam disorde r, single episode , unspeci fied 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 GRANT AVELAR 03/17 [facility] Outpatient Encounter [id number] [id number] 03/18 [facility] [place] [facility] OFFICE O/P [place] HI 40 MIN 36053-2.63 1BY.[id number] 37 Diagnos is: ICD-10- CM I10 Essenti al (primar y) hyperte nsion MARVIN [place],OG LEN M 03/18 [facility] [place] [facility] Outpatient Encounter [id number] [id number]/18 [facility] [place] [facility] NQHP OL DIG ASSMT&MGMT 5-10 [id number] [id number] 47 Diagnos is: ICD-10- CM E11.65 Type 2 diabete s mellitu s with hypergl ycemia SHELL GARRISON 03/21 [facility] Out[facility] Encounter [id number] [id number]/30 [facility] Out[facility] Encounter [id number] [id number] 04/01 [facility] [place] MTMS BY PHARM ADDL 15 MIN 78881-6.63 1BY.[id number] 00 Diagnos is: ICD-10- CM E11.65 Type 2 diabete s mellitu s with hypergl ycemia MIKE,IZ ABELA A 04/04 [place] [facility] Out[facility] Encounter [id number] [id number]/05 [facility] Out[facility] Encounter [id number] [id number]/06 [facility] [place] PT EVAL LOW COMPLEX 20 MIN 33028-1.63 1BY.[id number] Diagnos is: ICD-10- CM R26.89 Other abnorma lities of gait and mobilit DENISSE Grider 04/12 [place] OFF/OP EST MARCH X REQ PHY/QHP 36405-9.63 1BY.[id number] 06 Diagnos is: ICD-10- CM L03.116 Celluli tis of left lower limb SADE LOPEZ K 04/12 [place] OFF/OP EST MARCH X REQ PHY/QHP 11079-3.63 1BY.[id number] 96 Diagnos is: ICD-10- CM S81.802 D Unspeci fied open wound, left lower leg, subsequ ent encount er SADE LOPEZ K 04/15 [place] [facility] Out[facility] Encounter [id number] [id number]/15 [facility] Encounter [id number] [id number] 04/15 [facility] [place] Outpatient Encounter [id number] [id number] 04/20 [facility] [place] OFFICE O/P EST MOD 30 MIN 02056-4.63 [id number] Diagnos is: ICD-10- CM F32.9 Major depress iam disorde r, single episode , unspeci fied WORKMANST KUMARAAMIR G 04/20 [facility] [place] [facility] [place] Outpatient Encounter [id number] [id number] [facility] [place] [facility] [place] Outpatient Encounter [id number] [id number]/06 [facility] [place] [facility] [place] OFFICE O/P NEW LOW 30 MIN 76141-4.63 1BY.[id number] 58 Diagnos is: ICD-10- CM L60.3 Nail dystrop hy ROSS,CHARSahra ES F 06/06 [facility]EMES[facility] LD MTMS BY PHARM ADDL 15 MIN 37463-2.63 1BY.[id number] 13 Diagnos is: ICD-10- CM E11.65 Type 2 diabete s mellitu s with hypergl ycemia MIKE,IZ ABELA A 06/13 [facility] [place]ELD [place] CASE MANAGEMENT 65011-1.63 [id number].[id number] 03 Diagnos is: ICD-10- CM F43.10 Post-tr aumatic stress disorde r, unspeci fied GIUSEPPE SHARIF 06/13 [facility] [place]ELD [place] PH1 ASSMT&MGMT NQHP 11-20 32027-2.63 1BY.[id number] 59 Diagnos is: ICD-10- CM F32.9 Major depress iam disorde r, single episode , unspeci fied GILBERTO TALAMANTES I 06/13 [facility] [place]ELD [place] PSYTX W PT 45 MINUTES 32628-2.63 1BY.[id number] 93 Diagnos is: ICD-10- CM F33.9 Major depress iam disorde r, recurre nt, unspeci fied OFRAT,SHAN I 06/14 [facility] OFFICE O/P EST MOD 30 MIN 87467-9.63 1BY.[id number] 76 Diagnos is: ICD-10- CM F32.9 Major depress iam disorde r, single episode , unspeci fied ST JOSÉ WORKMANEN G 06[facility] Out[facility] Encounter [id number] [id number] 06/17 [facility] [place] [facility] PSYTX W PT 45 MINUTES 20756-1.63 1BY.[id number] 01 Diagnos is: ICD-10- CM F32.9 Major depress iam disorde r, single episode , unspeci fied OFRAT,SHAN I 07/12 [facility] Social History Combined list of available smoking, tobacco, and other social history from Department of Defense and Veterans Affairs facilities. Social History Type Response Date Comment Source Tobacco smoking status IDIS VA-TOBACCO USER EVERY DAY 05/06/2024 [facility] of tobacco use IN-TOBACCO DOESNT USE WI 30 MIN WAKEUP 05/06/2024 [facility] History of tobacco use VA-TOBACCO USE WI 30 MIN OF WAKEUP 12/20/2022 [facility] History of tobacco use VA-TOBACCO USER EVERY DAY 08/24/2021 [place] History of tobacco use VA-TOBACCO USE [employer] NO 05/11/2020 [place] History of tobacco use VA-TOBACCO USER EVERY DAY 01/28/2019 [place] History of tobacco use CURRENT SMOKER 11/06/2017 [place] History of tobacco use CURRENT SMOKER 09/15/2017 reports smoking about 1/2 pack small cigars/day [place] Plan of Care List of future care activities from Department of Veterans Affairs facilities. Additional future care activities may be listed in the Assessment and Plan section. Date/Time Care Activity Care Activity Detail Facili ty 07/22/2025 AMBULATORY - MEDICINE AMBULATORY - MEDICI [facility]
--- NOTE | 2025-07-13 12:55 | MHC.PC.OV ---
Vital Signs 07/13/25 12:56 Height 6 ft 2 in Weight 246 lb 14.684 oz BMI 31.7 BP 132/86 Blood Pressure Location Lt brachial Position Sitting Pulse 95 Pulse Source Pulse Oximeter Temp 97.0 F Temp Source Temporal Artery Scan Pulse Oximetry (%) 95 Oxygen Delivery Method Room Air Intake Visit Reasons: annual exam- see comments Allergies No Known Allergies (No Known Allergies*) Allergy (Verified 07/13/25 13:10) Medication List - Last Reconciled 07/13/25 by Mode Wiggins MD [ADULT PULL-UPS As directed] ammonium lactate 12% 1 appl topical DAILY aspirin 81 mg PO DAILY blood sugar diagnostic (FreeStyle Lite Strips) 1 strip miscellaneous TID cholecalciferol (vitamin D3) 25 mcg PO DAILY gabapentin 300 mg PO TID 90 days insulin aspart U-100 (Novolog FlexPen U-100 Insulin aspart) 12 units SQ TID with meals and 10 units SQ with snacks insulin glargine-yfgn (Semglee (insulin glargine-yfgn) Pen) 24 units subcut BID lancets (FreeStyle Lancets) 1 gauge topical TID loperamide (Imodium A-D) 2 mg PO Q6H PRN lovastatin 40 mg PO DAILY 90 days melatonin 1 mg PO BEDTIME PRN metformin 1,000 mg PO BID 90 days metoprolol tartrate 25 mg PO BID 90 days mirtazapine 30 mg PO BEDTIME peg-electrolyte soln 420 gram 240 mL PO ONCE PRN 1 day semaglutide 1 mg subcut QWEEK sertraline 150 mg PO DAILY topiramate 25 mg PO BID vitamin B complex 1 cap PO DAILY white petrolatum-mineral oil 1 ea topical DAILY Tobacco use date assessed: 07/13/25 Fall risk assessment: 2 + Falls in past year Last assessed Fall Risk: 07/13/25 Dental Screening Dental Screen Date: 07/13/25 Did you have a dental visit in the last 12 months?: No Did you have a dental problem in the last 6 months where you did not have access to dental care?: No Was dental information given to patient?: Patient declined HPI annual exam- see comments HPI Details Patient comes in today for his annual physical examination - was last seen here on 08/27/2024 States that he feels okay He denies any headaches or dizziness Denies any chest pains, no increased SOB No nausea/vomiting, no abdominal pain No change in bowel habits noted He denies any acute urinary symptoms Needs his Gabapentin Rx refilled He had his follow up labs done at the [facility] last month and he brings in a copy of these lab results today He had his repeat colonoscopy last done in 2016 and will be due for repeat colonoscopy in 2026 [facility] Medical History (Updated 07/13/25 @ 13:42 by Mode Wiggins MD) Annual physical exam Obesity due to excess calories Diabetes Stool incontinence Frequent diarrhea Irritable bowel Keratotic lesion Bilateral lower leg cellulitis Abdominal pain Urinary tract infection Cellulitis of right lower leg Urinary tract infection due to Klebsiella species Wound of left lower extremity Onychomycosis Frequent falls Cellulitis of left lower leg SOB (shortness of breath) on exertion Type 2 diabetes mellitus with microalbuminuria Benign paroxysmal vertigo Obesity (BMI 30-39.9) Smoker Depression Posttraumatic stress disorder Insomnia Postprandial diarrhea Vitamin B12 deficiency Vitamin D deficiency Nonintractable headache Degenerative disc disease, cervical Neuropathy Lumbar degenerative disc disease Benign essential hypertension Pure hypercholesterolemia Diabetes mellitus HTN (hypertension) Chronic diarrhea Surgical History History of colonoscopy History of esophagogastroduodenoscopy (EGD) History of lumbar surgery History of surgery History of cervical spinal surgery History of laparoscopic cholecystectomy Family History Father Diabetes CVD (cardiovascular disease) Mother Stroke Social History Household Members: Children Household Members Other:: lives with his son Housing: Apartment Alcohol intake: current Alcohol intake frequency: holidays/special occasions only Patient Tobacco Use Status: Current everyday Tobacco user Tobacco use type: Cigarette Cigarette Packs Per Day: 0.5 Cigarettes Per Day: 10 e-Cigarette/Vaping Use: Never Used Second Hand Smoke Exposure: Yes service: Yes Current occupational status: retired Cognitive needs: Yes (cane) Hearing needs: No Vision needs: Yes (reading glasses) Questionnaire PHQ-9 Over the last 2 weeks, how often have you been bothered by any of the following problems? 1. Little interest or pleasure in doing things: not at all 2. Feeling down, depressed, or hopeless: not at all 3. Trouble falling or staying asleep, or sleeping too much: not at all 4. Feeling tired or having little energy: not at all 5. Poor appetite or overeating: not at all 6. Feeling bad about yourself - or that you are a failure or have let yourself or your family down: not at all 7. Trouble concentrating on things, such as reading the newspaper or watching television: not at all 8. Moving or speaking so slowly that other people could have noticed. Or the opposite - being so fidgety or restless that you have been moving around a lot more than usual: not at all 9. Thoughts that you would be better off or of hurting yourself in some way: not at all Total score: 0 Depression Screening Interpretation: Negative Depression Screening Done: Yes 12698 - PHQ-9 Billing: Yes Source: Developed by Drs. Thom Ferrera, Aster Piedra, Vinnie Lizarraga and colleagues, with an educational gladys from [employer]. Thrive Questionnaire Date Thrive assessed: 07/13/25 I am a: Patient What is your living situation today?: I have a steady place to live Within the past 12 months, did the food you bought not last and you didn't have the money to get more?: I choose not to answer this question Within the past 12 months, did you worry whether your food would run out before you got money to buy more?: I choose not to answer this question Do you have trouble paying for medicines?: I choose not to answer this question Do you have trouble getting transportation to medical appointments?: I choose not to answer this question Do you have trouble paying your heating and electricity bill?: I choose not to answer this question Do you have trouble taking care of your child, family member or friend?: I choose not to answer this question Do you have trouble with day-to-day activities such as bathing, preparing meals, shopping, managing finances, etc.?: I choose not to answer this question Are you currently unemployed and looking for a job?: I choose not to answer this question Are you interested in more education?: I choose not to answer this question Please select the resources that you would like help with: None Currently or been in a relationship where the following occur: I choose not to answer THRIVE Score: 0 AUDIT C Alcohol Use Questionnaire (AUDIT-C) 1. How often do you have a drink containing alcohol?: Never 3. How often do you have six or more drinks on one occasion?: Never Total Score: 0 Score Reviewed/Action Taken: Yes SHERYL-7 AMB Questionnaire SHERYL-7 Date SHERYL - 7 assessed: 07/13/25 Feeling nervous, anxious, or on edge: 0 = Not at all Not being able to stop or control worryin = Not at all Worrying too much about different things: 0 = Not at all Trouble relaxin = Not at all Being so restless that it is hard to sit still: 0 = Not at all Becoming easily annoyed or irritable: 0 = Not at all Feeling afraid as if something awful might happen: 0 = Not at all Total SHERYL-7 score (0-4 normal; 5-9 mild; 10-14 moderate; 15-21 severe): 0 Source: Developed by Drs. Thom Ferrera, Aster Piedra, Vinnie Lizarraga and colleagues, with an educational gladys from [employer]. SHERYL-7 Assessment Billing SHERYL-7 Assessment Tool: SHERYL-7 Assessment 04296 Review of Systems Const Denies chills, Reports difficulty sleeping, Reports fatigue, Denies fever(s) and Denies headache(s) ENT Denies dysphagia, Denies dizziness, Denies otalgia, Denies headache(s), Reports neck pain (chronic), Denies odynophagia, Reports tinnitus (on and off) and Denies sore throat Card Denies chest pain, Denies palpitations and Reports dyspnea on exertion (mild) Resp Denies cough, Reports dyspnea on exertion (mild) and Denies wheezing GI Denies abdominal pain, Denies constipation, Denies dysphagia, Denies heartburn, Reports fecal incontinence, Reports diarrhea (frequent/recurrent), Reports loose stools, Denies nausea, Denies odynophagia and Denies vomiting Denies dysuria, Reports nocturia, Reports urinary frequency and Reports urinary incontinence Musc Reports abnormal gait (unsteady), Reports back pain (over the lower back - chronic), Reports arthralgias (including over his left knee lately) and Reports neck pain (chronic) Skin/Breast Details: (+) mild redness over the anterior aspect of both lower legs Reports rash (over both lower legs) and Denies unusual bruising Neuro Reports abnormal gait (unsteady), Denies dizziness and Denies headache(s) Psych Reports anxiety and Reports depression Endo Reports fatigue and Denies palpitations Kuldeep/Lymph Details: frequent swelling of both legs Aller/Immun Denies wheezing Physical exam (Primary Care) Vital Signs: Last Vital Signs Temp 97.0 F 07/13/25 12:56 Pulse 95 07/13/25 12:56 BP 132/86 07/13/25 12:56 Pulse Ox 95 07/13/25 12:56 Oxygen Delivery Method Room Air 07/13/25 12:56 BMI result Body Mass Index 31.7 Tobacco/Smoking Status: Tobacco use Status Tobacco use date assessed 07/13/25 07/13/25 13:03 Patient Tobacco Use Status Current everyday Tobacco 07/13/25 13:03 Tobacco use type Cigarette 07/13/25 13:03 e-Cigarette/Vaping Use Never Used 07/13/25 13:03 PHQ-9: PHQ-9 Score PHQ-9: Total score 0 07/13/25 13:03 Depression Screening Interpretation: Negative Thrive Assessment: Date of Thrive Assessment Date Thrive assessed 07/13/25 07/13/25 13:03 Currently or been in a relationship where the following occur: I choose not to answer Const General: no acute distress and alert HENMT Ears: TM's normal bilaterally and EAC's normal Throat: Yes posterior oropharynx normal and Yes tonsils normal (no TP congestion noted) Neck Neck: Yes supple and No lymphadenopathy Thyroid: Thyroid normal Resp Auscultation: clear to auscultation bilaterally, no rales and no wheezes Cardio Rate: regular rate Rhythm: regular rhythm Heart sounds: no murmurs GI Palpation (GI): Soft to palpation and nontender Auscultation: normal bowel sounds General: Yes no CVA tenderness Back/Spine/Pelvis Back: no CVA tenderness Thoracic/Lumbar Spine: lumbar spinal tenderness Skin Other: increased erythema over the anterior aspect of both lower legs, which are slightly warm to touch; there are also a few scattered scaling rash over the lower legs anteriorly but no open sores are noted at this time Extrem General: Yes no clubbing, cyanosis or edema Results AMB Hemoglobin A1c AMB Hemoglobin A1c 8.3 % Last Edit by Lynn Vargas CMA on 07/13/25 13:05 Results Reviewed Results Reviewed: Laboratory Last Values Hgb A1c (Clinic) 8.3 % (4.0-6.0) H 07/13/25 13:03 Coding Level of Care Code Est Pt Prev Care >65y(69477) Diagnoses Annual physical exam Z00.00 Type 2 diabetes mellitus with microalbuminuria E11.29; R80.9 Pure hypercholesterolemia E78.00 Benign essential hypertension I10 Frequent diarrhea R19.7 Lymphedema I89.0 Gait instability R26.81 Neuropathy G62.9 Degeneration of intervertebral disc of lumbar region with discogenic back pain M51.360 Disc-related pain type: discogenic back pain only Degenerative disc disease, cervical M50.30 Nonintractable headache, unspecified chronicity pattern, unspecified headache type R51.9 Headache type: unspecified Headache chronicity pattern: unspecified pattern Vitamin B12 deficiency E53.8 Vitamin D deficiency E55.9 Insomnia, unspecified type G47.00 Insomnia type: unspecified Posttraumatic stress disorder F43.10 Depression, unspecified depression type F32.9 Depression Type: unspecified Smoker F17.200 Obesity (BMI 30-39.9) E66.9 Additional Codes SHERYL-7 Assessment Billing - SHERYL-7 Assessment Tool: SHERYL-7 Assessment 25894 ([id number]) PHQ-9 - 92813 - PHQ-9 Billing: Yes ([id number]) Assessment & Plan Assessment & Plan (1) Annual physical exam: Code(s): Z00.00 - Encounter for general adult medical examination without abnormal findings Category: Medical (2) Type 2 diabetes mellitus with microalbuminuria: Code(s): E11.29 - Type 2 diabetes mellitus with other diabetic kidney complication; R80.9 - Proteinuria, unspecified Category: Medical Plan: His in-office HgbA1c done today is at 8.3% (his HgbA1c was at 7.7% on his labs done at the [facility] last month - goal is at least < 8.0% or 7.5% Reinforced diabetic diet Continue Metformin 1000 mg BID, Insulin Glargine (Semglee) 24 units BID and NovoLog 12 units TID with meals and 10 units with snacks; he is also on Ozempic 1 mg Q week He is seeing endocrinology at the [facility] for management of his diabetes and he is advised to 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 as scheduled (3) Pure hypercholesterolemia: Code(s): E78.00 - Pure hypercholesterolemia, unspecified Category: Medical Plan: Results of his labs done at the [facility] last month reviewed and discussed with patient Reinforced low cholesterol diet Continue Lovastatin 40 mg QD Will recheck his labs and fasting lipids in 3 months for follow-up (4) Benign essential hypertension: Code(s): I10 - Essential (primary) hypertension Category: Medical Plan: Reinforced low sodium diet - goal is systolic BP of at least 130 mm or less Continue Metoprolol 25 mg BID Follow up with cardiology as scheduled (5) Frequent diarrhea: Code(s): R19.7 - Diarrhea, unspecified Category: Medical Plan: This is possibly due to his IBS; patient is also S/P cholecystectomy so some of his symptoms may be postcholecystectomy diarrhea He had EGD done on 08/23/22 - EGD revealed diffuse erythema with a nodular appearing mucosa in the gastric body. There are a few chronic appearing erosions in the pre-pyloric area as well as patchy erythema in the duodenal bulb with also a 10 mm benign-appearing nodule in the apex of the bulb. Biopsies were obtained from the gastric antrum and body as well as from the duodenal bulb - biopsies came back mostly benign are negative for H pylori and celiac disease and showed only changes of chronic active duodenitis Follow-up with GI as scheduled (6) Lymphedema: Code(s): I89.0 - Lymphedema, not elsewhere classified Category: Medical Plan: Chronic, involving both lower extremities Patient is reminded to keep his legs elevated as often as he can to help minimize his swelling Will consider referral to vascular surgery for further evaluation and management if his symptoms persist - states that his [facility] doctor is actually thinking about referring him to vascular surgery but for the [facility] to cover his visit, the referral has to come from them (7) Gait instability: Code(s): R26.81 - Unsteadiness on feet Category: Medical Plan: This is most likely multifactorial and is at least partially contributed to by his lumbar spine spine degenerative disc disease as well as his neuropathy He was referred to and seen by Neurology, who recommended physical therapy but he declined States that he has been to physical therapy in the past with only temporary minimal improvement of his gait issues and he recalls that he had to pay a co-pay every time he goes to them He is advised to consider it again and perhaps they can do home physical therapy instead; have also advised him to speak to [facility] about this and maybe they can offer him some services that are covered by the [facility] (8) Neuropathy: Code(s): G62.9 - Polyneuropathy, unspecified Category: Medical Plan: He was on Amitriptyline in the past to help with his leg pain and symptoms but this was stopped by psychiatry when he was started on Mirtazapine at bedtime for his depression and PTSD Patient states that he will consider going back on his Amitriptyline if his leg and feet pain gets significantly worse again (9) Lumbar degenerative disc disease: Code(s): M51.36 - Other intervertebral disc degeneration, lumbar region Category: Medical Qualifiers: Disc-related pain type: discogenic back pain only Qualified Code(s): M51.360 - Other intervertebral disc degeneration, lumbar region with discogenic back pain only Plan: Reinforced activity and weight-lifting restrictions Continue Gabapentin 300 mg TID and Cyclobenzaprine 10 mg TID PRN (10) Degenerative disc disease, cervical: Code(s): M50.30 - Other cervical disc degeneration, unspecified cervical region Category: Medical Plan: S/P cervical spine surgery on 12/05/[address] Faye with improvement of symptoms Follow up with neurosurgery as scheduled or as needed (11) Nonintractable headache: Code(s): R51.9 - Headache, unspecified Category: Medical Qualifiers: Headache type: unspecified Headache chronicity pattern: unspecified pattern Qualified Code(s): R51.9 - Headache, unspecified Plan: CT head done last year came out negative Continue Topiramate 50 mg BID for headache prophylaxis - he has been doing well on Rx for the past few months (12) Vitamin B12 deficiency: Code(s): E53.8 - Deficiency of other specified B group vitamins Category: Medical Plan: Continue Vitamin B12 1000 mcg QD (13) Vitamin D deficiency: Code(s): E55.9 - Vitamin D deficiency, unspecified Category: Medical Plan: Continue Vitamin D3 2000 units QD (14) Insomnia: Code(s): G47.00 - Insomnia, unspecified Category: Medical Qualifiers: Insomnia type: unspecified Qualified Code(s): G47.00 - Insomnia, unspecified Plan: Sleep hygiene reinforced She was on Zaleplon 10 mg Q HS PRN previously but is currently only on Melatonin 1 mg Q HS and seems to be doing okay on this Mirtazapine also helps with his sleep at night (15) Posttraumatic stress disorder: Code(s): F43.10 - Post-traumatic stress disorder, unspecified Category: Medical Plan: Continue Sertraline 100 mg 1.5 tablets daily and Mirtazapine 30 mg QD Follow up with psychiatry (at the [facility]) as scheduled (16) Depression: Code(s): F32.9 - Major depressive disorder, single episode, unspecified Category: Medical Qualifiers: Depression Type: unspecified Qualified Code(s): F32.9 - Major depressive disorder, single episode, unspecified Plan: Continue Mirtazapine 30 mg QD and Sertraline 100 mg 1.5 tablets QD (17) Smoker: Code(s): F17.200 - Nicotine dependence, unspecified, uncomplicated Category: Social Hx Plan: Patient is counseled again on complete smoking cessation (18) Obesity (BMI 30-39.9): Code(s): E66.9 - Obesity, unspecified Category: Medical Plan: Reinforced diet; exercise and weight loss are not realistic due to his physical issues and comorbidities Plan Follow up in 3 months Orders: Orders Complete Blood Count Auto Diff 3 Months D64.9 - Anemia, unspecified Lipid Panel 3 Months E78.00 - Pure hypercholesterolemia, unspecified AMB Hemoglobin A1c Today Z13.9 - Encounter for screening, unspecified Comprehensive [place]. Panel Fast 3 Months E78.00 - Pure hypercholesterolemia, unspecified Hemoglobin A1c 3 Months E11.9 - Type 2 diabetes mellitus without complications Microalbumin, Random (w Creat) 3 Months E11.9 - Type 2 diabetes mellitus without complications TSH reflex Free T4 3 Months E78.00 - Pure hypercholesterolemia, unspecified UA CC w/rflx Micro + Cult 3 Months R30.0 - Dysuria Vitamin D 25-OH Total 3 Months E55.9 - Vitamin D deficiency, unspecified Vitamin B12 and Folate 3 Months E53.8 - Deficiency of other specified B group vitamins Medications: Refilled gabapentin 300 mg PO TID 270 caps 1RF 90 days
[2025-07-13 12:56] VITALS: BP 132/86; PULSE 95; TEMP 36.1; O2SAT 95; BMI 31.7
== END 2025-07-13 13:41 | disposition home or self-care (01) ==
LOC: HO.HMCH 12:49
PROVIDERS: PCP Internal Medicine; Visit Provider Internal Medicine
DX: Z13.9 Encounter for screening, unspecified (principal)

== ENCOUNTER → 2025-07-13 12:49 | Outpatient (BNVA) | payer MEDICARE, SELFPAY | PROVIDERS: PCP Internal Medicine; Visit Provider Internal Medicine | DX: Z00.00 Encounter for general adult medical examination without abnormal findings (principal); E11.29 Type 2 diabetes mellitus with other diabetic kidney complication; R80.9 Proteinuria, unspecified; E78.00 Pure hypercholesterolemia, unspecified; I10 Essential (primary) hypertension; R19.7 Diarrhea, unspecified; I89.0 Lymphedema, not elsewhere classified; R26.81 Unsteadiness on feet; G62.9 Polyneuropathy, unspecified; M51.360 Other intervertebral disc degeneration, lumbar region with discogenic back pain only; M50.30 Other cervical disc degeneration, unspecified cervical region; R51.9 Headache, unspecified; E53.8 Deficiency of other specified B group vitamins; E55.9 Vitamin D deficiency, unspecified; G47.00 Insomnia, unspecified; F43.10 Post-traumatic stress disorder, unspecified; F32.9 Major depressive disorder, single episode, unspecified; E66.9 Obesity, unspecified; F17.210 Nicotine dependence, cigarettes, uncomplicated; Z68.31 Body mass index [BMI] 31.0-31.9, adult | CPT/HCPCS: 83036; 96127; 99397 ==

== ENCOUNTER 2025-10-04 15:00 | Outpatient (RCR) | payer MEDICARE, OTHER, SELFPAY | END 2025-10-24 16:41 | disposition home or self-care (01) | LOC: HO.WCC 15:00 | PROVIDERS: Visit Provider Surgery Surgical Oncology | DX: E11.622 Type 2 diabetes mellitus with other skin ulcer (principal); I87.312 Chronic venous hypertension (idiopathic) with ulcer of left lower extremity; L97.821 Non-pressure chronic ulcer of other part of left lower leg limited to breakdown of skin; S80.822A Blister (nonthermal), left lower leg, initial encounter; E11.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 mellitus with diabetic neuropathy, unspecified; I87.2 Venous insufficiency (chronic) (peripheral); I89.0 Lymphedema, not elsewhere classified; F17.210 Nicotine dependence, cigarettes, uncomplicated; X58.XXXA Exposure to other specified factors, initial encounter; Y93.9 Activity, unspecified; Y92.9 Unspecified place or not applicable; Y99.9 Unspecified external cause status; Z79.4 Long term (current) use of insulin; Z79.84 Long term (current) use of oral hypoglycemic drugs | CPT/HCPCS: 97597; 99212; 99213 ==